=== PATIENT | female | born 1945 | race Caucasian/White ===

== ENCOUNTER 2017-06-01 09:15 | Outpatient (RCR) | payer MEDICARE, SELFPAY ==
[2017-05-08 00:59] VITALS: BP 150/77; PULSE 75; RESP 16; TEMP 36.6
[2017-05-18 09:19] VITALS: BP 136/56; PULSE 81; RESP 16; TEMP 36.6
--- NOTE | 2017-05-18 13:23 | PCM.WC.PN ---
(1) Rheumatoid arthritis Status: Chronic Current Visit: Yes Code(s): M06.9 - Rheumatoid arthritis, unspecified (2) Traumatic open wound of left lower leg with delayed healing Status: Chronic Current Visit: Yes Code(s): S81.802D - Unspecified open wound, left lower leg, subsequent encounter (3) Ulcer of leg, chronic, left Status: Chronic Current Visit: Yes Qualifiers: Code(s): L97.929 - Non-pressure chronic ulcer of unspecified part of left lower leg with unspecified severity Type of Wound Date of Service: 05/18/17 Chief Complaint: Traumatic open wound of left leg History of Wound: This is a 71-year-old female who suffered a traumatic injury to the left lateral calf on October 06, 2016. This occurred while she was ascending the steps. She had been under the care of Dr. Ja Bernal at this facility in management of this traumatic wound. The use of allograft or PuraPly has been considered, but denied by the patient's insurance. Patient has had recent culture, positive for Staphylococcus aureus, and has completed a course of Bactrim DS. Current management includes the use of Yen topically, changed every several days. She has previously demonstrated an apparent allergy to collagen hydrogel. The patient has had vascular studies, without evidence of significant superficial vein incompetence in the left lower extremity. Her noninvasive lower extremity arterial study reveals normal anklebrachial indices bilaterally. Laboratory results have been reviewed from January 04, 2017, and are generally unremarkable. Nutritional labs appear to be normal. White blood count and hemogram are also normal. The patient is noted to be on prednisone and methotrexate. These are acknowledged to be possible inhibitors to wound healing. 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 Discontinuation of these medications did not sit well with the patient in terms of her rheumatoid arthritis. She has resumed these medications. There has been slight improvement in the size and status of the left lower extremity traumatic wound within the last several weeks. Progress of Wound: Stable - Physical Exam Vital Signs Temp Pulse Resp BP 97.9 F 81 16 136/56 H 05/18/17 09:19 05/18/17 09:19 05/18/17 09:19 05/18/17 09:19 General: Alert, Oriented x3, Cooperative, No apparent distress HEENT: Atraumatic, Normocephalic Oral: Moist Mucosa Neck: Supple Lungs: Normal air movement Cardiovascular: Regular rate Extremities: No cyanosis, No edema Skin: Ulcer/ Wound Wound Measurements and Assessment - Nurse 1 - General Ulcer Measurement Start: 05/18/17 09:18 Freq: Status: Active Protocol: Activity Type Activity Date Activity User E-Sign Co-Sign Detail Recorded Client Recorded Date Recorded By Document 05/18/17 09:19 DL [id number] 05/18/17 09:25 DL 05/18/17 09:19 Wound Center Nurse 1 [Ulcer Assessment Protocol: WC.WD.LOC] 1. L lower leg -Current Size (cm) - Length 0.6 -Current Size (cm) - Width 0.6 -Current Size (cm) - Depth 0.1 -Total Square Cm 0.36 -Photo Taken No -Exudate Amt Small (1-33%) -Exudate Type Serosanguineous -Wound Margin Distinct, Outline Attached -Granulation Amt Small (1-33%) -Granulation Quality [place] -Necrosis Amt Small (1-33%) -Necrotic Tissue Type Adherent Slough -Structure Exposed N/A -Texture (Анна-wound Skin Appearance) Scarring -Moisture (Анна-wound Skin Appearance Dry/Scaly ) -Color (Анна-wound Skin Appearance) No Abnormality -Temperature (Анна-wound Skin No Abnormality Appearance) (Pt Warm) -Ulcer Cleansing Rinsed/ Irrigated with Saline -Foul Odor after Cleansing No -Anesthetic Used 4% Lidocaine Solution SHAHANA Stevens Nurse 2 - General Ulcer CM Notes Start: 05/18/17 09:18 Freq: Status: Active Protocol: Activity Type Activity Date Activity User E-Sign Co-Sign Detail Recorded Client Recorded Date Recorded By Document 05/18/17 09:45 DV [id number] 05/18/17 09:52 DV 05/18/17 09:45 Wound Center Nurse 2 [Procedure/Treatment] -Time 09:46 -Correct Patient Yes -Correct Side, Site, Position Yes -Correct Procedure Yes -Procedure Performed Yes -Type of Procedure Debridement -Clinical Debridement Subcutaneous -Post Debridement Size (cm) - Length 0.8 -Post Debridement Size (cm) - Width 0.6 -Post Debridement Size (cm) - Depth 0.1 -Total Square Cm 0.48 -Wound/Ulcer Outcome Failed Graft -Ulcer Cleansing Rinsed/ Irrigated with Saline -Foul Odor after Cleansing No -Bioengineered Tissue No -Cetacaine [place] No -Bleeding Controlled with Pressure -Treatment Response Procedure Tolerated Well [See Physician Procedure note for Specifics] Pain Scale: 0-10 Numeric [Pain] -Is Patient Pain Free? Yes Musculoskeletal: No Muscle Wasting Neurological: Cranial nerves II-XII grossly intact Debridement Note Post-Debridement Measurements/Treatment WC - Nurse 2 - General Ulcer CM Notes Start: 05/18/17 09:18 Freq: Status: Active Protocol: Activity Type Activity Date Activity User E-Sign Co-Sign Detail Recorded Client Recorded Date Recorded By Document 05/18/17 09:45 DV [id number] 05/18/17 09:52 DV 05/18/17 09:45 Wound Center Nurse 2 1. L lower leg -Time 09:46 -Correct Patient Yes -Correct Side, Site, Position Yes -Correct Procedure Yes -Procedure Performed Yes -Type of Procedure Debridement -Clinical Debridement Subcutaneous -Post Debridement Size (cm) - Length 0.8 -Post Debridement Size (cm) - Width 0.6 -Post Debridement Size (cm) - Depth 0.1 -Total Square Cm 0.48 -Wound/Ulcer Outcome Failed Graft -Ulcer Cleansing Rinsed/ Irrigated with Saline -Foul Odor after Cleansing No -Bioengineered Tissue No -Cetacaine [place] No -Bleeding Controlled with Pressure -Treatment Response Procedure Tolerated Well Pain Scale: 0-10 Numeric Is Patient Pain Free? Yes Wound debrided: Left Leg Type of Debridement: Excisional debridement Anesthesia Used: 4% Lidocaine Solution Depth: Down to and including healthy tissue, in the subcutaneous layer Percentage of wound debrided: 100 Instrument Used: 5mm curette Tissue Removed: Slough, Subcutaneous tissue Amount of bleeding with debridement: Mild Bleeding Controlled with: Pressure Patient tolerated procedure well Assessment/Plan Active Problems Rheumatoid arthritis (Chronic) Ulcer of leg, chronic, left (Chronic) Traumatic open wound of left lower leg with delayed healing (Chronic) Assessment: Traumatic wound of the left lateral calf, sustained on October 06, 2016. Patient had initially made slow progress but now seems to have plateued. She suffers from rheumatoid arthritis, for which she is on methotrexate and prednisone, which may be inhibitors of wound healing, and may have contributed to delays in healing of the patient's traumatic wound. Arterial flow to ankle level appears to be normal bilaterally, suggesting that arterial perfusion is adequate for wound healing in the left lower extremity. The patient appears to be a candidate for allograft placement, but has been denied by her insurance company. Plan: Wound size with modest reduction. Attempts are still being made for skin substitutes. Continue Promogran daily. Continue protein rich diet. Follow-up in 2 weeks. This note was generated with [employer] dictation software. It may contain incorrect words, spelling, and punctuation that were not noted in checking the note before signing.
--- NOTE | 2017-05-18 13:28 | PN.PCM_ITS ---
(1) Rheumatoid arthritis Status: Chronic Current Visit: Yes Code(s): M06.9 - Rheumatoid arthritis, unspecified (2) Traumatic open wound of left lower leg with delayed healing Status: Chronic Current Visit: Yes Code(s): S81.802D - Unspecified open wound, left lower leg, subsequent encounter (3) Ulcer of leg, chronic, left Status: Chronic Current Visit: Yes Qualifiers: Code(s): L97.929 - Non-pressure chronic ulcer of unspecified part of left lower leg with unspecified severity Type of Wound Date of Service: 05/18/17 Chief Complaint: Traumatic open wound of left leg History of Wound: This is a 71-year-old female who suffered a traumatic injury to the left lateral calf on October 06, 2016. This occurred while she was ascending the steps. She had been under the care of Dr. Ja Bernal at this facility in management of this traumatic wound. The use of allograft or PuraPly has been considered, but denied by the patient's insurance. Patient has had recent culture, positive for Staphylococcus aureus, and has completed a course of Bactrim DS. Current management includes the use of Yen topically, changed every several days. She has previously demonstrated an apparent allergy to collagen hydrogel. The patient has had vascular studies, without evidence of significant superficial vein incompetence in the left lower extremity. Her noninvasive lower extremity arterial study reveals normal ankle? brachial indices bilaterally. Laboratory results have been reviewed from January 04, 2017, and are generally unremarkable. Nutritional labs appear to be normal. White blood count and hemogram are also normal. The patient is noted to be on prednisone and methotrexate. These are acknowledged to be possible inhibitors to wound healing. The patient is aware, and has previously made efforts to wean herself from these medications in collaboration with her safety professional. Discontinuation of these medications did not sit well with the patient in terms of her rheumatoid arthritis. She has resumed these medications. There has been slight improvement in the size and status of the left lower extremity traumatic wound within the last several weeks. Progress of Wound: Stable - Physical Exam Vital Signs Temp Pulse Resp BP 97.9 F 81 16 136/56 H 05/18/17 09:19 05/18/17 09:19 05/18/17 09:19 05/18/17 09:19 General: Alert, Oriented x3, Cooperative, No apparent distress HEENT: Atraumatic, Normocephalic Oral: Moist Mucosa Neck: Supple Lungs: Normal air movement Cardiovascular: Regular rate Extremities: No cyanosis, No edema Skin: Ulcer/ Wound Wound Measurements and Assessment - Nurse 1 - General Ulcer Measurement Start: 05/18/17 09:18 Freq: Status: Active Protocol: Activity Type Activity Date Activity User E-Sign Co-Sign Detail Recorded Client Recorded Date Recorded By Document 05/18/17 09:19 DL [id number] 05/18/17 09:25 DL 05/18/17 09:19 Wound Center Nurse 1 [Ulcer Assessment Protocol: WC.WD.LOC] 1. L lower leg -Current Size (cm) - Length 0.6 -Current Size (cm) - Width 0.6 -Current Size (cm) - Depth 0.1 -Total Square Cm 0.36 -Photo Taken No -Exudate Amt Small (1-33%) -Exudate Type Serosanguineous -Wound Margin Distinct, Outline Attached -Granulation Amt Small (1-33%) -Granulation Quality [place] -Necrosis Amt Small (1-33%) -Necrotic Tissue Type Adherent Slough -Structure Exposed N/A -Texture (Анна-wound Skin Appearance) Scarring -Moisture (Анна-wound Skin Appearance Dry/Scaly ) -Color (Анна-wound Skin Appearance) No Abnormality -Temperature (Анна-wound Skin No Abnormality Appearance) (Pt Warm) -Ulcer Cleansing Rinsed/ Irrigated with Saline -Foul Odor after Cleansing No -Anesthetic Used 4% Lidocaine Solution SHAHANA Stevens Nurse 2 - General Ulcer CM Notes Start: 05/18/17 09:18 Freq: Status: Active Protocol: Activity Type Activity Date Activity User E-Sign Co-Sign Detail Recorded Client Recorded Date Recorded By Document 05/18/17 09:45 DV [id number] 05/18/17 09:52 DV 05/18/17 09:45 Wound Center Nurse 2 [Procedure/Treatment] -Time 09:46 -Correct Patient Yes -Correct Side, Site, Position Yes -Correct Procedure Yes -Procedure Performed Yes -Type of Procedure Debridement -Clinical Debridement Subcutaneous -Post Debridement Size (cm) - Length 0.8 -Post Debridement Size (cm) - Width 0.6 -Post Debridement Size (cm) - Depth 0.1 -Total Square Cm 0.48 -Wound/Ulcer Outcome Failed Graft -Ulcer Cleansing Rinsed/ Irrigated with Saline -Foul Odor after Cleansing No -Bioengineered Tissue No -Cetacaine [place] No -Bleeding Controlled with Pressure -Treatment Response Procedure Tolerated Well [See Physician Procedure note for Specifics] Pain Scale: 0-10 Numeric [Pain] -Is Patient Pain Free? Yes Musculoskeletal: No Muscle Wasting Neurological: Cranial nerves II-XII grossly intact Debridement Note Post-Debridement Measurements/Treatment WC - Nurse 2 - General Ulcer CM Notes Start: 05/18/17 09:18 Freq: Status: Active Protocol: Activity Type Activity Date Activity User E-Sign Co-Sign Detail Recorded Client Recorded Date Recorded By Document 05/18/17 09:45 DV [id number] 05/18/17 09:52 DV 05/18/17 09:45 Wound Center Nurse 2 1. L lower leg -Time 09:46 -Correct Patient Yes -Correct Side, Site, Position Yes -Correct Procedure Yes -Procedure Performed Yes -Type of Procedure Debridement -Clinical Debridement Subcutaneous -Post Debridement Size (cm) - Length 0.8 -Post Debridement Size (cm) - Width 0.6 -Post Debridement Size (cm) - Depth 0.1 -Total Square Cm 0.48 -Wound/Ulcer Outcome Failed Graft -Ulcer Cleansing Rinsed/ Irrigated with Saline -Foul Odor after Cleansing No -Bioengineered Tissue No -Cetacaine [place] No -Bleeding Controlled with Pressure -Treatment Response Procedure Tolerated Well Pain Scale: 0-10 Numeric Is Patient Pain Free? Yes Wound debrided: Left Leg Type of Debridement: Excisional debridement Anesthesia Used: 4% Lidocaine Solution Depth: Down to and including healthy tissue, in the subcutaneous layer Percentage of wound debrided: 100 Instrument Used: 5mm curette Tissue Removed: Slough, Subcutaneous tissue Amount of bleeding with debridement: Mild Bleeding Controlled with: Pressure Patient tolerated procedure well Assessment/Plan Active Problems Rheumatoid arthritis (Chronic) Ulcer of leg, chronic, left (Chronic) Traumatic open wound of left lower leg with delayed healing (Chronic) Assessment: Traumatic wound of the left lateral calf, sustained on October 06, 2016. Patient had initially made slow progress but now seems to have plateued. She suffers from rheumatoid arthritis, for which she is on methotrexate and prednisone, which may be inhibitors of wound healing, and may have contributed to delays in healing of the patient's traumatic wound. Arterial flow to ankle level appears to be normal bilaterally, suggesting that arterial perfusion is adequate for wound healing in the left lower extremity. The patient appears to be a candidate for allograft placement, but has been denied by her insurance company. Plan: Wound size with modest reduction. Attempts are still being made for skin substitutes. Continue Promogran daily. Continue protein rich diet. Follow-up in 2 weeks. This note was generated with [employer] dictation software. It may contain incorrect words, spelling, and punctuation that were not noted in checking the note before signing.
[2017-06-01 09:35] VITALS: BP 154/95; PULSE 90; RESP 18; TEMP 37.3
--- NOTE | 2017-06-01 10:41 | PCM.WC.PN ---
(1) Rheumatoid arthritis Status: Chronic Code(s): M06.9 - Rheumatoid arthritis, unspecified (2) Traumatic open wound of left lower leg with delayed healing Status: Chronic Code(s): S81.802D - Unspecified open wound, left lower leg, subsequent encounter (3) Ulcer of leg, chronic, left Status: Chronic Qualifiers: Code(s): L97.929 - Non-pressure chronic ulcer of unspecified part of left lower leg with unspecified severity Type of Wound Date of Service: 06/01/17 Chief Complaint: Traumatic open wound of left leg History of Wound: This is a 71-year-old female who suffered a traumatic injury to the left lateral calf on October 06, 2016. This occurred while she was ascending the steps. She had been under the care of Dr. Ja Bernal at this facility in management of this traumatic wound. The use of allograft or PuraPly has been considered, but denied by the patient's insurance. Patient has had recent culture, positive for Staphylococcus aureus, and has completed a course of Bactrim DS. Current management includes the use of Yen topically, changed every several days. She has previously demonstrated an apparent allergy to collagen hydrogel. The patient has had vascular studies, without evidence of significant superficial vein incompetence in the left lower extremity. Her noninvasive lower extremity arterial study reveals normal anklebrachial indices bilaterally. Laboratory results have been reviewed from January 04, 2017, and are generally unremarkable. Nutritional labs appear to be normal. White blood count and hemogram are also normal. The patient is noted to be on prednisone and methotrexate. These are acknowledged to be possible inhibitors to wound healing. 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 Discontinuation of these medications did not sit well with the patient in terms of her rheumatoid arthritis. She has resumed these medications. There has been slight improvement in the size and status of the left lower extremity traumatic wound within the last several weeks. Progress of Wound: Stable - Physical Exam Vital Signs Temp Pulse Resp BP 99.1 F 90 18 154/95 H 06/01/17 09:35 06/01/17 09:35 06/01/17 09:35 06/01/17 09:35 General: Alert, Oriented x3, Cooperative, No apparent distress HEENT: Atraumatic, Normocephalic Oral: Moist Mucosa Neck: Supple Lungs: Normal air movement Cardiovascular: Regular rate Extremities: No cyanosis, No edema Wound Measurements and Assessment WC - Nurse 1 - General Ulcer Measurement Start: 05/18/17 09:18 Freq: Status: Active Protocol: Activity Type Activity Date Activity User E-Sign Co-Sign Detail Recorded Client Recorded Date Recorded By Document 06/01/17 09:35 RB [id number] 06/01/17 09:42 RB 06/01/17 09:35 Wound Center Nurse 1 [Ulcer Assessment Protocol: WC.WD.LOC] 1. L lower leg -Combined with other wound No -Current Size (cm) - Length 0.5 -Current Size (cm) - Width 0.3 -Current Size (cm) - Depth 0.1 -Total Square Cm 0.15 -Photo Taken No -Tunneling No -Undermining/Tunneling Yes -Undermining/Tunneling Starts (O' 10 clock) -Undermining/Tunneling Ends (O'clock) 1 -Maximum Distance (cm) 0.2 -Circular Undermining No -Classification - Thickness Full Thickness without Exposed Support Structure -Exudate Amt Small (1-33%) -Exudate Type Serosanguineous -Wound Margin Distinct, Outline Attached -Granulation Amt Medium (34-66%) -Granulation Quality [place] -Slough/Fibrin Yes -Necrosis Amt Medium (34-66%) -Necrotic Tissue Type Adherent Slough -Structure Exposed N/A -Texture (Анна-wound Skin Appearance) Assessed -Moisture (Анна-wound Skin Appearance Assessed ) -Color (Анна-wound Skin Appearance) Assessed -Temperature (Анна-wound Skin No Abnormality Appearance) (Pt Warm) -Tenderness on Palpation (Анна-wound No Skin Appearance) -Ulcer Cleansing Rinsed/ Irrigated with Saline -Foul Odor after Cleansing No -Anesthetic Used 5% Lidocaine Gel WC - Nurse 2 - General Ulcer CM Notes Start: 05/18/17 09:18 Freq: Status: Active Protocol: Activity Type Activity Date Activity User E-Sign Co-Sign Detail Recorded Client Recorded Date Recorded By Document 06/01/17 10:08 DV [id number] 06/01/17 10:13 DV 06/01/17 10:08 Wound Center Nurse 2 [Procedure/Treatment] -Time 10:09 -Correct Patient Yes -Correct Side, Site, Position Yes -Correct Procedure Yes -Procedure Performed Yes -Type of Procedure Debridement -Clinical Debridement Subcutaneous -Post Debridement Size (cm) - Length 0.6 -Post Debridement Size (cm) - Width 0.5 -Post Debridement Size (cm) - Depth 0.2 -Total Square Cm 0.30 -Wound/Ulcer Outcome Not Healed -Ulcer Cleansing Rinsed/ Irrigated with Saline -Foul Odor after Cleansing No -Bioengineered Tissue No -Cetacaine [place] No -Bleeding Controlled with Pressure -Treatment Response Procedure Tolerated Well [See Physician Procedure note for Specifics] Pain Scale: 0-10 Numeric [Pain] -Is Patient Pain Free? Yes Neurological: Cranial nerves II-XII grossly intact Debridement Note Post-Debridement Measurements/Treatment WC - Nurse 2 - General Ulcer CM Notes Start: 05/18/17 09:18 Freq: Status: Active Protocol: Activity Type Activity Date Activity User E-Sign Co-Sign Detail Recorded Client Recorded Date Recorded By Document 05/18/17 09:45 DV [id number] 05/18/17 09:52 DV Document 06/01/17 10:08 DV [id number] 06/01/17 10:13 DV 05/18/17 06/01/17 09:45 10:08 Wound Center Nurse 2 1. L lower leg -Time 09:46 10:09 -Correct Patient Yes Yes -Correct Side, Site, Position Yes Yes -Correct Procedure Yes Yes -Procedure Performed Yes Yes -Type of Procedure Debridement Debridement -Clinical Debridement Subcutaneous Subcutaneous -Post Debridement Size (cm) - Length 0.8 0.6 -Post Debridement Size (cm) - Width 0.6 0.5 -Post Debridement Size (cm) - Depth 0.1 0.2 -Total Square Cm 0.48 0.30 -Wound/Ulcer Outcome Failed Graft Not Healed -Ulcer Cleansing Rinsed/ Rinsed/ Irrigated with Irrigated with Saline Saline -Foul Odor after Cleansing No No -Bioengineered Tissue No No -Cetacaine [place] No No -Bleeding Controlled with Pressure Pressure -Treatment Response Procedure Procedure Tolerated Well Tolerated Well Pain Scale: 0-10 Numeric Is Patient Pain Free? Yes Yes Wound debrided: Left Leg Wound. Type of Debridement: Excisional debridement Anesthesia Used: 5% Lidocaine Gel Depth: Down to and including healthy tissue, in the subcutaneous layer Percentage of wound debrided: 100 Instrument Used: 5mm curette Tissue Removed: Slough, Devitalized Tissue Severity: Fat Layer Exposed Amount of bleeding with debridement: Mild Bleeding Controlled with: Pressure Patient tolerated procedure well Assessment/Plan Assessment: Traumatic wound of the left lateral calf, sustained on October 06, 2016. Patient had initially made slow progress but now seems to have plateued. She suffers from rheumatoid arthritis, for which she is on methotrexate and prednisone, which may be inhibitors of wound healing, and may have contributed to delays in healing of the patient's traumatic wound. Arterial flow to ankle level appears to be normal bilaterally, suggesting that arterial perfusion is adequate for wound healing in the left lower extremity. The patient appears to be a candidate for allograft placement, but has been denied by her insurance company. Plan: Wound size with modest reduction. Recurrent attempts at Skin substitutes denied. Will consider the amniofill option.... She is scheduled to have surgery next week at [facility] ( Parathyroid ). Continue Promogran daily. Continue protein rich diet. Follow-up in 2 weeks. This note was generated with [employer] dictation software. It may contain incorrect words, spelling, and punctuation that were not noted in checking the note before signing.
--- NOTE | 2017-06-01 10:45 | PN.PCM_ITS ---
(1) Rheumatoid arthritis Status: Chronic Code(s): M06.9 - Rheumatoid arthritis, unspecified (2) Traumatic open wound of left lower leg with delayed healing Status: Chronic Code(s): S81.802D - Unspecified open wound, left lower leg, subsequent encounter (3) Ulcer of leg, chronic, left Status: Chronic Qualifiers: Code(s): L97.929 - Non-pressure chronic ulcer of unspecified part of left lower leg with unspecified severity Type of Wound Date of Service: 06/01/17 Chief Complaint: Traumatic open wound of left leg History of Wound: This is a 71-year-old female who suffered a traumatic injury to the left lateral calf on October 06, 2016. This occurred while she was ascending the steps. She had been under the care of Dr. Ja Bernal at this facility in management of this traumatic wound. The use of allograft or PuraPly has been considered, but denied by the patient's insurance. Patient has had recent culture, positive for Staphylococcus aureus, and has completed a course of Bactrim DS. Current management includes the use of Yen topically, changed every several days. She has previously demonstrated an apparent allergy to collagen hydrogel. The patient has had vascular studies, without evidence of significant superficial vein incompetence in the left lower extremity. Her noninvasive lower extremity arterial study reveals normal ankle? brachial indices bilaterally. Laboratory results have been reviewed from January 04, 2017, and are generally unremarkable. Nutritional labs appear to be normal. White blood count and hemogram are also normal. The patient is noted to be on prednisone and methotrexate. These are acknowledged to be possible inhibitors to wound healing. The patient is aware, and has previously made efforts to wean herself from these medications in collaboration with her movie editor. Discontinuation of these medications did not sit well with the patient in terms of her rheumatoid arthritis. She has resumed these medications. There has been slight improvement in the size and status of the left lower extremity traumatic wound within the last several weeks. Progress of Wound: Stable - Physical Exam Vital Signs Temp Pulse Resp BP 99.1 F 90 18 154/95 H 06/01/17 09:35 06/01/17 09:35 06/01/17 09:35 06/01/17 09:35 General: Alert, Oriented x3, Cooperative, No apparent distress HEENT: Atraumatic, Normocephalic Oral: Moist Mucosa Neck: Supple Lungs: Normal air movement Cardiovascular: Regular rate Extremities: No cyanosis, No edema Wound Measurements and Assessment WC - Nurse 1 - General Ulcer Measurement Start: 05/18/17 09:18 Freq: Status: Active Protocol: Activity Type Activity Date Activity User E-Sign Co-Sign Detail Recorded Client Recorded Date Recorded By Document 06/01/17 09:35 RB [id number] 06/01/17 09:42 RB 06/01/17 09:35 Wound Center Nurse 1 [Ulcer Assessment Protocol: WC.WD.LOC] 1. L lower leg -Combined with other wound No -Current Size (cm) - Length 0.5 -Current Size (cm) - Width 0.3 -Current Size (cm) - Depth 0.1 -Total Square Cm 0.15 -Photo Taken No -Tunneling No -Undermining/Tunneling Yes -Undermining/Tunneling Starts (O' 10 clock) -Undermining/Tunneling Ends (O'clock) 1 -Maximum Distance (cm) 0.2 -Circular Undermining No -Classification - Thickness Full Thickness without Exposed Support Structure -Exudate Amt Small (1-33%) -Exudate Type Serosanguineous -Wound Margin Distinct, Outline Attached -Granulation Amt Medium (34-66%) -Granulation Quality [place] -Slough/Fibrin Yes -Necrosis Amt Medium (34-66%) -Necrotic Tissue Type Adherent Slough -Structure Exposed N/A -Texture (Анна-wound Skin Appearance) Assessed -Moisture (Анна-wound Skin Appearance Assessed ) -Color (Анна-wound Skin Appearance) Assessed -Temperature (Анна-wound Skin No Abnormality Appearance) (Pt Warm) -Tenderness on Palpation (Анна-wound No Skin Appearance) -Ulcer Cleansing Rinsed/ Irrigated with Saline -Foul Odor after Cleansing No -Anesthetic Used 5% Lidocaine Gel WC - Nurse 2 - General Ulcer CM Notes Start: 05/18/17 09:18 Freq: Status: Active Protocol: Activity Type Activity Date Activity User E-Sign Co-Sign Detail Recorded Client Recorded Date Recorded By Document 06/01/17 10:08 DV [id number] 06/01/17 10:13 DV 06/01/17 10:08 Wound Center Nurse 2 [Procedure/Treatment] -Time 10:09 -Correct Patient Yes -Correct Side, Site, Position Yes -Correct Procedure Yes -Procedure Performed Yes -Type of Procedure Debridement -Clinical Debridement Subcutaneous -Post Debridement Size (cm) - Length 0.6 -Post Debridement Size (cm) - Width 0.5 -Post Debridement Size (cm) - Depth 0.2 -Total Square Cm 0.30 -Wound/Ulcer Outcome Not Healed -Ulcer Cleansing Rinsed/ Irrigated with Saline -Foul Odor after Cleansing No -Bioengineered Tissue No -Cetacaine Tell No -Bleeding Controlled with Pressure -Treatment Response Procedure Tolerated Well [See Physician Procedure note for Specifics] Pain Scale: 0-10 Numeric [Pain] -Is Patient Pain Free? Yes Neurological: Cranial nerves II-XII grossly intact Debridement Note Post-Debridement Measurements/Treatment WC - Nurse 2 - General Ulcer CM Notes Start: 05/18/17 09:18 Freq: Status: Active Protocol: Activity Type Activity Date Activity User E-Sign Co-Sign Detail Recorded Client Recorded Date Recorded By Document 05/18/17 09:45 DV [id number] 05/18/17 09:52 DV Document 06/01/17 10:08 DV [id number] 06/01/17 10:13 DV 05/18/17 06/01/17 09:45 10:08 Wound Center Nurse 2 1. L lower leg -Time 09:46 10:09 -Correct Patient Yes Yes -Correct Side, Site, Position Yes Yes -Correct Procedure Yes Yes -Procedure Performed Yes Yes -Type of Procedure Debridement Debridement -Clinical Debridement Subcutaneous Subcutaneous -Post Debridement Size (cm) - Length 0.8 0.6 -Post Debridement Size (cm) - Width 0.6 0.5 -Post Debridement Size (cm) - Depth 0.1 0.2 -Total Square Cm 0.48 0.30 -Wound/Ulcer Outcome Failed Graft Not Healed -Ulcer Cleansing Rinsed/ Rinsed/ Irrigated with Irrigated with Saline Saline -Foul Odor after Cleansing No No -Bioengineered Tissue No No -Cetacaine Tell No No -Bleeding Controlled with Pressure Pressure -Treatment Response Procedure Procedure Tolerated Well Tolerated Well Pain Scale: 0-10 Numeric Is Patient Pain Free? Yes Yes Wound debrided: Left Leg Wound. Type of Debridement: Excisional debridement Anesthesia Used: 5% Lidocaine Gel Depth: Down to and including healthy tissue, in the subcutaneous layer Percentage of wound debrided: 100 Instrument Used: 5mm curette Tissue Removed: Slough, Devitalized Tissue Severity: Fat Layer Exposed Amount of bleeding with debridement: Mild Bleeding Controlled with: Pressure Patient tolerated procedure well Assessment/Plan Assessment: Traumatic wound of the left lateral calf, sustained on October 06, 2016. Patient had initially made slow progress but now seems to have plateued. She suffers from rheumatoid arthritis, for which she is on methotrexate and prednisone, which may be inhibitors of wound healing, and may have contributed to delays in healing of the patient's traumatic wound. Arterial flow to ankle level appears to be normal bilaterally, suggesting that arterial perfusion is adequate for wound healing in the left lower extremity. The patient appears to be a candidate for allograft placement, but has been denied by her insurance company. Plan: Wound size with modest reduction. Recurrent attempts at Skin substitutes denied. Will consider the amniofill option.... She is scheduled to have surgery next week at [facility] ( Parathyroid ). Continue Promogran daily. Continue protein rich diet. Follow-up in 2 weeks. This note was generated with [employer] dictation software. It may contain incorrect words, spelling, and punctuation that were not noted in checking the note before signing.
== END 2017-06-07 23:59 ==
LOC: WC 09:15
PROVIDERS: Family Provider Family Medicine; PCP Family Medicine; Visit Provider Internal Medicine
DX: S81.802A Unspecified open wound, left lower leg, initial encounter (principal); M06.9 Rheumatoid arthritis, unspecified; L97.822 Non-pressure chronic ulcer of other part of left lower leg with fat layer exposed
CPT/HCPCS: 11042

== ENCOUNTER 2017-06-29 09:30 | Outpatient (RCR) | payer MEDICARE, SELFPAY ==
[2017-06-01 09:35] VITALS: BP 154/95
[2017-06-08 00:41] VITALS: PULSE 90; RESP 18; TEMP 37.3
[2017-06-15 09:48] VITALS: BP 123/78; PULSE 86; RESP 16; TEMP 36.9
--- NOTE | 2017-06-15 14:17 | PCM.WC.PN ---
(1) Rheumatoid arthritis Status: Chronic Current Visit: Yes Code(s): M06.9 - Rheumatoid arthritis, unspecified (2) Traumatic open wound of left lower leg with delayed healing Status: Chronic Current Visit: Yes Code(s): S81.802D - Unspecified open wound, left lower leg, subsequent encounter (3) Ulcer of leg, chronic, left Status: Chronic Current Visit: Yes Qualifiers: Code(s): L97.929 - Non-pressure chronic ulcer of unspecified part of left lower leg with unspecified severity Type of Wound Date of Service: 06/15/17 Chief Complaint: Traumatic open wound of left leg History of Wound: This is a 71-year-old female who suffered a traumatic injury to the left lateral calf on October 06, 2016. This occurred while she was ascending the steps. She had been under the care of Dr. Ja Bernal at this facility in management of this traumatic wound. The use of allograft or PuraPly has been considered, but denied by the patient's insurance. Patient has had recent culture, positive for Staphylococcus aureus, and has completed a course of Bactrim DS. Current management includes the use of Yen topically, changed every several days. She has previously demonstrated an apparent allergy to collagen hydrogel. The patient has had vascular studies, without evidence of significant superficial vein incompetence in the left lower extremity. Her noninvasive lower extremity arterial study reveals normal anklebrachial indices bilaterally. Laboratory results have been reviewed from January 04, 2017, and are generally unremarkable. Nutritional labs appear to be normal. White blood count and hemogram are also normal. The patient is noted to be on prednisone and methotrexate. These are acknowledged to be possible inhibitors to wound healing. 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 Discontinuation of these medications did not sit well with the patient in terms of her rheumatoid arthritis. She has resumed these medications. There has been slight improvement in the size and status of the left lower extremity traumatic wound within the last several weeks. Progress of Wound: Improving. - Physical Exam Vital Signs Temp Pulse Resp BP 98.4 F 86 16 123/78 H 06/15/17 09:48 06/15/17 09:48 06/15/17 09:48 06/15/17 09:48 General: Alert, Oriented x3, Cooperative, No apparent distress HEENT: Atraumatic, Normocephalic Oral: Moist Mucosa Neck: Supple Lungs: Normal air movement Cardiovascular: Regular rate Extremities: No cyanosis Wound Measurements and Assessment - Nurse 1 - General Ulcer Measurement Start: 06/15/17 09:48 Freq: Status: Active Protocol: Activity Type Activity Date Activity User E-Sign Co-Sign Detail Recorded Client Recorded Date Recorded By Document 06/15/17 09:48 [facility] [id number] 06/15/17 09:56 [facility] 06/15/17 09:48 Wound Center Nurse 1 [Ulcer Assessment Protocol: WC.WD.LOC] 1. L lower leg -Combined with other wound No -Current Size (cm) - Length 0.9 -Current Size (cm) - Width 0.5 -Current Size (cm) - Depth 0.1 -Total Square Cm 0.45 -Photo Taken No -Epithelialization None Present -Tunneling No -Undermining/Tunneling No -Exudate Amt None Present (0 %) -Wound Margin Distinct, Outline Attached -Granulation Amt None Present (0 %) -Slough/Fibrin Yes -Necrosis Amt Large (67-100%) -Necrotic Tissue Type Eschar -Structure Exposed N/A -Texture (Анна-wound Skin Appearance) Scarring -Moisture (Анна-wound Skin Appearance Dry/Scaly ) -Color (Анна-wound Skin Appearance) Assessed -Temperature (Анна-wound Skin No Abnormality Appearance) (Pt Warm) -Tenderness on Palpation (Анна-wound No Skin Appearance) -Ulcer Cleansing Rinsed/ Irrigated with Saline -Foul Odor after Cleansing No -Anesthetic Used 5% Lidocaine Gel - Nurse 2 - General Ulcer CM Notes Start: 06/15/17 09:48 Freq: Status: Active Protocol: Activity Type Activity Date Activity User E-Sign Co-Sign Detail Recorded Client Recorded Date Recorded By Document 06/15/17 11:32 DV [id number] 06/15/17 11:35 DV 06/15/17 11:32 Wound Center Nurse 2 [Procedure/Treatment] -Time 11:32 -Correct Patient Yes -Correct Side, Site, Position Yes -Correct Procedure Yes -Procedure Performed Yes -Type of Procedure Debridement -Clinical Debridement Subcutaneous -Post Debridement Size (cm) - Length 0.5 -Post Debridement Size (cm) - Width 0.3 -Post Debridement Size (cm) - Depth 0.2 -Total Square Cm 0.15 -Wound/Ulcer Outcome Not Healed -Ulcer Cleansing Rinsed/ Irrigated with Saline -Foul Odor after Cleansing No -Bioengineered Tissue No -Bleeding Controlled with Pressure -Treatment Response Procedure Tolerated Well [See Physician Procedure note for Specifics] Pain Scale: 0-10 Numeric [Pain] -Is Patient Pain Free? Yes Neurological: Cranial nerves II-XII grossly intact Psych/Mental Status: Normal Affect Debridement Note Post-Debridement Measurements/Treatment WC - Nurse 2 - General Ulcer CM Notes Start: 06/15/17 09:48 Freq: Status: Active Protocol: Activity Type Activity Date Activity User E-Sign Co-Sign Detail Recorded Client Recorded Date Recorded By Document 06/15/17 11:32 DV [id number] 06/15/17 11:35 DV 06/15/17 11:32 Wound Center Nurse 2 1. L lower leg -Time 11:32 -Correct Patient Yes -Correct Side, Site, Position Yes -Correct Procedure Yes -Procedure Performed Yes -Type of Procedure Debridement -Clinical Debridement Subcutaneous -Post Debridement Size (cm) - Length 0.5 -Post Debridement Size (cm) - Width 0.3 -Post Debridement Size (cm) - Depth 0.2 -Total Square Cm 0.15 -Wound/Ulcer Outcome Not Healed -Ulcer Cleansing Rinsed/ Irrigated with Saline -Foul Odor after Cleansing No -Bioengineered Tissue No -Bleeding Controlled with Pressure -Treatment Response Procedure Tolerated Well Pain Scale: 0-10 Numeric Is Patient Pain Free? Yes Wound debrided: Left Leg Wound Grade/Stage: Stage II Type of Debridement: Excisional debridement Anesthesia Used: 5% Lidocaine Gel Depth: Down to and including healthy tissue, in the subcutaneous layer Percentage of wound debrided: 100 Instrument Used: 3mm curette Tissue Removed: Slogh and Devitalized tissue. Severity: Fat Layer Exposed Amount of bleeding with debridement: Mild Bleeding Controlled with: Pressure Patient tolerated procedure well Assessment/Plan Active Problems Traumatic open wound of left lower leg with delayed healing (Chronic) Ulcer of leg, chronic, left (Chronic) Rheumatoid arthritis (Chronic) Assessment: Traumatic wound of the left lateral calf, sustained on October 06, 2016. Patient had initially made slow progress but now seems to have plateued. She suffers from rheumatoid arthritis, for which she is on methotrexate and prednisone, which may be inhibitors of wound healing, and may have contributed to delays in healing of the patient's traumatic wound. Arterial flow to ankle level appears to be normal bilaterally, suggesting that arterial perfusion is adequate for wound healing in the left lower extremity. The patient appears to be a candidate for allograft placement, but has been denied by her insurance company. Plan: Slow however, steady progress in wound healing. No new complaints at this time. Parathyroid surgery was uneventful. Continue Promogran daily after cleaning. Continue protein rich diet and supplements. Elevate lower extremity. Follow-up in 2 weeks. This note was generated with [employer] dictation software. It may contain incorrect words, spelling, and punctuation that were not noted in checking the note before signing.
--- NOTE | 2017-06-15 14:21 | PN.PCM_ITS ---
(1) Rheumatoid arthritis Status: Chronic Current Visit: Yes Code(s): M06.9 - Rheumatoid arthritis, unspecified (2) Traumatic open wound of left lower leg with delayed healing Status: Chronic Current Visit: Yes Code(s): S81.802D - Unspecified open wound, left lower leg, subsequent encounter (3) Ulcer of leg, chronic, left Status: Chronic Current Visit: Yes Qualifiers: Code(s): L97.929 - Non-pressure chronic ulcer of unspecified part of left lower leg with unspecified severity Type of Wound Date of Service: 06/15/17 Chief Complaint: Traumatic open wound of left leg History of Wound: This is a 71-year-old female who suffered a traumatic injury to the left lateral calf on October 06, 2016. This occurred while she was ascending the steps. She had been under the care of Dr. Ja Bernal at this facility in management of this traumatic wound. The use of allograft or PuraPly has been considered, but denied by the patient's insurance. Patient has had recent culture, positive for Staphylococcus aureus, and has completed a course of Bactrim DS. Current management includes the use of Yen topically, changed every several days. She has previously demonstrated an apparent allergy to collagen hydrogel. The patient has had vascular studies, without evidence of significant superficial vein incompetence in the left lower extremity. Her noninvasive lower extremity arterial study reveals normal ankle? brachial indices bilaterally. Laboratory results have been reviewed from January 04, 2017, and are generally unremarkable. Nutritional labs appear to be normal. White blood count and hemogram are also normal. The patient is noted to be on prednisone and methotrexate. These are acknowledged to be possible inhibitors to wound healing. 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 Discontinuation of these medications did not sit well with the patient in terms of her rheumatoid arthritis. She has resumed these medications. There has been slight improvement in the size and status of the left lower extremity traumatic wound within the last several weeks. Progress of Wound: Improving. - Physical Exam Vital Signs Temp Pulse Resp BP 98.4 F 86 16 123/78 H 06/15/17 09:48 06/15/17 09:48 06/15/17 09:48 06/15/17 09:48 General: Alert, Oriented x3, Cooperative, No apparent distress HEENT: Atraumatic, Normocephalic Oral: Moist Mucosa Neck: Supple Lungs: Normal air movement Cardiovascular: Regular rate Extremities: No cyanosis Wound Measurements and Assessment - Nurse 1 - General Ulcer Measurement Start: 06/15/17 09:48 Freq: Status: Active Protocol: Activity Type Activity Date Activity User E-Sign Co-Sign Detail Recorded Client Recorded Date Recorded By Document 06/15/17 09:48 [facility] [id number] 06/15/17 09:56 [facility] 06/15/17 09:48 Wound Center Nurse 1 [Ulcer Assessment Protocol: SHAHANA.WD.LOC] 1. L lower leg -Combined with other wound No -Current Size (cm) - Length 0.9 -Current Size (cm) - Width 0.5 -Current Size (cm) - Depth 0.1 -Total Square Cm 0.45 -Photo Taken No -Epithelialization None Present -Tunneling No -Undermining/Tunneling No -Exudate Amt None Present (0 %) -Wound Margin Distinct, Outline Attached -Granulation Amt None Present (0 %) -Slough/Fibrin Yes -Necrosis Amt Large (67-100%) -Necrotic Tissue Type Eschar -Structure Exposed N/A -Texture (Анна-wound Skin Appearance) Scarring -Moisture (Анна-wound Skin Appearance Dry/Scaly ) -Color (Анна-wound Skin Appearance) Assessed -Temperature (Анна-wound Skin No Abnormality Appearance) (Pt Warm) -Tenderness on Palpation (Анна-wound No Skin Appearance) -Ulcer Cleansing Rinsed/ Irrigated with Saline -Foul Odor after Cleansing No -Anesthetic Used 5% Lidocaine Gel - Nurse 2 - General Ulcer CM Notes Start: 06/15/17 09:48 Freq: Status: Active Protocol: Activity Type Activity Date Activity User E-Sign Co-Sign Detail Recorded Client Recorded Date Recorded By Document 06/15/17 11:32 DV [id number] 06/15/17 11:35 DV 06/15/17 11:32 Wound Center Nurse 2 [Procedure/Treatment] -Time 11:32 -Correct Patient Yes -Correct Side, Site, Position Yes -Correct Procedure Yes -Procedure Performed Yes -Type of Procedure Debridement -Clinical Debridement Subcutaneous -Post Debridement Size (cm) - Length 0.5 -Post Debridement Size (cm) - Width 0.3 -Post Debridement Size (cm) - Depth 0.2 -Total Square Cm 0.15 -Wound/Ulcer Outcome Not Healed -Ulcer Cleansing Rinsed/ Irrigated with Saline -Foul Odor after Cleansing No -Bioengineered Tissue No -Bleeding Controlled with Pressure -Treatment Response Procedure Tolerated Well [See Physician Procedure note for Specifics] Pain Scale: 0-10 Numeric [Pain] -Is Patient Pain Free? Yes Neurological: Cranial nerves II-XII grossly intact Psych/Mental Status: Normal Affect Debridement Note Post-Debridement Measurements/Treatment WC - Nurse 2 - General Ulcer CM Notes Start: 06/15/17 09:48 Freq: Status: Active Protocol: Activity Type Activity Date Activity User E-Sign Co-Sign Detail Recorded Client Recorded Date Recorded By Document 06/15/17 11:32 DV [id number] 06/15/17 11:35 DV 06/15/17 11:32 Wound Center Nurse 2 1. L lower leg -Time 11:32 -Correct Patient Yes -Correct Side, Site, Position Yes -Correct Procedure Yes -Procedure Performed Yes -Type of Procedure Debridement -Clinical Debridement Subcutaneous -Post Debridement Size (cm) - Length 0.5 -Post Debridement Size (cm) - Width 0.3 -Post Debridement Size (cm) - Depth 0.2 -Total Square Cm 0.15 -Wound/Ulcer Outcome Not Healed -Ulcer Cleansing Rinsed/ Irrigated with Saline -Foul Odor after Cleansing No -Bioengineered Tissue No -Bleeding Controlled with Pressure -Treatment Response Procedure Tolerated Well Pain Scale: 0-10 Numeric Is Patient Pain Free? Yes Wound debrided: Left Leg Wound Grade/Stage: Stage II Type of Debridement: Excisional debridement Anesthesia Used: 5% Lidocaine Gel Depth: Down to and including healthy tissue, in the subcutaneous layer Percentage of wound debrided: 100 Instrument Used: 3mm curette Tissue Removed: Slogh and Devitalized tissue. Severity: Fat Layer Exposed Amount of bleeding with debridement: Mild Bleeding Controlled with: Pressure Patient tolerated procedure well Assessment/Plan Active Problems Traumatic open wound of left lower leg with delayed healing (Chronic) Ulcer of leg, chronic, left (Chronic) Rheumatoid arthritis (Chronic) Assessment: Traumatic wound of the left lateral calf, sustained on October 06, 2016. Patient had initially made slow progress but now seems to have plateued. She suffers from rheumatoid arthritis, for which she is on methotrexate and prednisone, which may be inhibitors of wound healing, and may have contributed to delays in healing of the patient's traumatic wound. Arterial flow to ankle level appears to be normal bilaterally, suggesting that arterial perfusion is adequate for wound healing in the left lower extremity. The patient appears to be a candidate for allograft placement, but has been denied by her insurance company. Plan: Slow however, steady progress in wound healing. No new complaints at this time. Parathyroid surgery was uneventful. Continue Promogran daily after cleaning. Continue protein rich diet and supplements. Elevate lower extremity. Follow-up in 2 weeks. This note was generated with [employer] dictation software. It may contain incorrect words, spelling, and punctuation that were not noted in checking the note before signing.
[2017-06-29 09:50] VITALS: BP 114/60; PULSE 70; RESP 18; TEMP 36.1
--- NOTE | 2017-06-29 13:57 | PCM.WC.PN ---
(1) Rheumatoid arthritis Status: Chronic Code(s): M06.9 - Rheumatoid arthritis, unspecified (2) Traumatic open wound of left lower leg with delayed healing Status: Chronic Code(s): S81.802D - Unspecified open wound, left lower leg, subsequent encounter Type of Wound Date of Service: 06/29/17 Chief Complaint: Traumatic open wound of left leg History of Wound: This is a 71-year-old female who suffered a traumatic injury to the left lateral calf on October 06, 2016. This occurred while she was ascending the steps. She had been under the care of Dr. Ja Bernal at this facility in management of this traumatic wound. The use of allograft or PuraPly has been considered, but denied by the patient's insurance. Patient has had recent culture, positive for Staphylococcus aureus, and has completed a course of Bactrim DS. Current management includes the use of Yen topically, changed every several days. She has previously demonstrated an apparent allergy to collagen hydrogel. The patient has had vascular studies, without evidence of significant superficial vein incompetence in the left lower extremity. Her noninvasive lower extremity arterial study reveals normal anklebrachial indices bilaterally. Laboratory results have been reviewed from January 04, 2017, and are generally unremarkable. Nutritional labs appear to be normal. White blood count and hemogram are also normal. The patient is noted to be on prednisone and methotrexate. These are acknowledged to be possible inhibitors to wound healing. The patient is aware, and has previously made efforts to wean herself from these medications in collaboration with her finish inspector. Discontinuation of these medications did not sit well with the patient in terms of her rheumatoid arthritis. She has resumed these medications. There has been slight improvement in the size and status of the left lower extremity traumatic wound within the last several weeks. Progress of Wound: Improving. - Physical Exam Vital Signs Temp Pulse Resp BP 97 F L 70 18 114/60 06/29/17 09:50 06/29/17 09:50 06/29/17 09:50 06/29/17 09:50 General: Alert, Oriented x3, Cooperative, No apparent distress HEENT: Atraumatic, Normocephalic Oral: Moist Mucosa Neck: Supple Lungs: Normal air movement Cardiovascular: Regular rate Extremities: No cyanosis, No edema Wound Measurements and Assessment WC - Nurse 1 - General Ulcer Measurement Start: 06/15/17 09:48 Freq: Status: Active Protocol: Activity Type Activity Date Activity User E-Sign Co-Sign Detail Recorded Client Recorded Date Recorded By Document 06/29/17 09:50 RB [id number] 06/29/17 09:58 RB 06/29/17 09:50 Wound Center Nurse 1 [Ulcer Assessment] 1. L lower leg -Combined with other wound No -Current Size (cm) - Length 0.6 -Current Size (cm) - Width 0.4 -Current Size (cm) - Depth 0.1 -Total Square Cm 0.24 -Epithelialization Small 1-33% -Tunneling No -Undermining/Tunneling No -Circular Undermining No -Classification - Thickness Full Thickness without Exposed Support Structure -Exudate Amt None Present (0 %) -Wound Margin Distinct, Outline Attached -Granulation Amt Small (1-33%) -Granulation Quality [place] -Slough/Fibrin Yes -Necrosis Amt Large (67-100%) -Necrotic Tissue Type Adherent Slough -Structure Exposed N/A -Texture (Анна-wound Skin Appearance) Assessed -Moisture (Анна-wound Skin Appearance Dry/Scaly ) -Color (Анна-wound Skin Appearance) Assessed -Temperature (Анна-wound Skin No Abnormality Appearance) (Pt Warm) -Tenderness on Palpation (Анна-wound No Skin Appearance) -Ulcer Cleansing Rinsed/ Irrigated with Saline -Foul Odor after Cleansing No -Anesthetic Used 5% Lidocaine Gel [Edema Assessment] -Lower Limb Edema Present No - Nurse 2 - General Ulcer CM Notes Start: 06/15/17 09:48 Freq: Status: Active Protocol: Activity Type Activity Date Activity User E-Sign Co-Sign Detail Recorded Client Recorded Date Recorded By Document 06/29/17 10:37 DV [id number] 06/29/17 10:40 DV 06/29/17 10:37 Wound Center Nurse 2 [Procedure/Treatment] 1. L lower leg -Time 10:38 -Correct Patient Yes -Correct Side, Site, Position Yes -Correct Procedure Yes -Procedure Performed Yes -Type of Procedure Debridement -Clinical Debridement Subcutaneous -Post Debridement Size (cm) - Length 0.1 -Post Debridement Size (cm) - Width 0.2 -Post Debridement Size (cm) - Depth 0.1 -Total Square Cm 0.02 -Wound/Ulcer Outcome Not Healed -Ulcer Cleansing Rinsed/ Irrigated with Saline -Foul Odor after Cleansing No -Bioengineered Tissue No -Bleeding Controlled with NA -Treatment Response Procedure Tolerated Well [See Physician Procedure note for Specifics] Pain Scale: 0-10 Numeric [Pain] -Is Patient Pain Free? Yes Neurological: Cranial nerves II-XII grossly intact Psych/Mental Status: Normal Affect Debridement Note Post-Debridement Measurements/Treatment WC - Nurse 2 - General Ulcer CM Notes Start: 06/15/17 09:48 Freq: Status: Active Protocol: Activity Type Activity Date Activity User E-Sign Co-Sign Detail Recorded Client Recorded Date Recorded By Document 06/15/17 11:32 DV [id number] 06/15/17 11:35 DV Document 06/29/17 10:37 DV [id number] 06/29/17 10:40 DV 06/15/17 06/29/17 11:32 10:37 Wound Center Nurse 2 1. L lower leg -Time 11:32 10:38 -Correct Patient Yes Yes -Correct Side, Site, Position Yes Yes -Correct Procedure Yes Yes -Procedure Performed Yes Yes -Type of Procedure Debridement Debridement -Clinical Debridement Subcutaneous Subcutaneous -Post Debridement Size (cm) - Length 0.5 0.1 -Post Debridement Size (cm) - Width 0.3 0.2 -Post Debridement Size (cm) - Depth 0.2 0.1 -Total Square Cm 0.15 0.02 -Wound/Ulcer Outcome Not Healed Not Healed -Ulcer Cleansing Rinsed/ Rinsed/ Irrigated with Irrigated with Saline Saline -Foul Odor after Cleansing No No -Bioengineered Tissue No No -Bleeding Controlled with Pressure NA -Treatment Response Procedure Procedure Tolerated Well Tolerated Well Pain Scale: 0-10 Numeric Is Patient Pain Free? Yes Yes Wound debrided: Left lower extremity ulcer Wound Grade/Stage: Stage II Type of Debridement: Excisional debridement Anesthesia Used: 5% Lidocaine Gel Depth: Down to and including healthy tissue Percentage of wound debrided: 100 Instrument Used: 3mm curette Tissue Removed: Devitalized tissue Severity: Limited To Skin Breakdown Amount of bleeding with debridement: Mild Bleeding Controlled with: Pressure Patient tolerated procedure well Assessment/Plan Assessment: Traumatic wound of the left lateral calf, sustained on October 06, 2016. Patient had initially made slow progress but now seems to have plateued. She suffers from rheumatoid arthritis, for which she is on methotrexate and prednisone, which may be inhibitors of wound healing, and may have contributed to delays in healing of the patient's traumatic wound. Arterial flow to ankle level appears to be normal bilaterally, suggesting that arterial perfusion is adequate for wound healing in the left lower extremity. The patient appears to be a candidate for allograft placement, but has been denied by her insurance company. Plan: Significant progress noted. Wound essentially healed. Minimal superficial area left. Continue Promogran daily after cleaning. Continue protein rich diet and supplements. Elevate lower extremity. Follow-up in 1 week. This note was generated with [employer] dictation software. It may contain incorrect words, spelling, and punctuation that were not noted in checking the note before signing.
--- NOTE | 2017-06-29 14:02 | PN.PCM_ITS ---
(1) Rheumatoid arthritis Status: Chronic Code(s): M06.9 - Rheumatoid arthritis, unspecified (2) Traumatic open wound of left lower leg with delayed healing Status: Chronic Code(s): S81.802D - Unspecified open wound, left lower leg, subsequent encounter Type of Wound Date of Service: 06/29/17 Chief Complaint: Traumatic open wound of left leg History of Wound: This is a 71-year-old female who suffered a traumatic injury to the left lateral calf on October 06, 2016. This occurred while she was ascending the steps. She had been under the care of Dr. Ja Bernal at this facility in management of this traumatic wound. The use of allograft or PuraPly has been considered, but denied by the patient's insurance. Patient has had recent culture, positive for Staphylococcus aureus, and has completed a course of Bactrim DS. Current management includes the use of Yen topically, changed every several days. She has previously demonstrated an apparent allergy to collagen hydrogel. The patient has had vascular studies, without evidence of significant superficial vein incompetence in the left lower extremity. Her noninvasive lower extremity arterial study reveals normal ankle? brachial indices bilaterally. Laboratory results have been reviewed from January 04, 2017, and are generally unremarkable. Nutritional labs appear to be normal. White blood count and hemogram are also normal. The patient is noted to be on prednisone and methotrexate. These are acknowledged to be possible inhibitors to wound healing. The patient is aware, and has previously made efforts to wean herself from these medications in collaboration with her salesperson automobiles. Discontinuation of these medications did not sit well with the patient in terms of her rheumatoid arthritis. She has resumed these medications. There has been slight improvement in the size and status of the left lower extremity traumatic wound within the last several weeks. Progress of Wound: Improving. - Physical Exam Vital Signs Temp Pulse Resp BP 97 F L 70 18 114/60 06/29/17 09:50 06/29/17 09:50 06/29/17 09:50 06/29/17 09:50 General: Alert, Oriented x3, Cooperative, No apparent distress HEENT: Atraumatic, Normocephalic Oral: Moist Mucosa Neck: Supple Lungs: Normal air movement Cardiovascular: Regular rate Extremities: No cyanosis, No edema Wound Measurements and Assessment WC - Nurse 1 - General Ulcer Measurement Start: 06/15/17 09:48 Freq: Status: Active Protocol: Activity Type Activity Date Activity User E-Sign Co-Sign Detail Recorded Client Recorded Date Recorded By Document 06/29/17 09:50 RB [id number] 06/29/17 09:58 RB 06/29/17 09:50 Wound Center Nurse 1 [Ulcer Assessment] 1. L lower leg -Combined with other wound No -Current Size (cm) - Length 0.6 -Current Size (cm) - Width 0.4 -Current Size (cm) - Depth 0.1 -Total Square Cm 0.24 -Epithelialization Small 1-33% -Tunneling No -Undermining/Tunneling No -Circular Undermining No -Classification - Thickness Full Thickness without Exposed Support Structure -Exudate Amt None Present (0 %) -Wound Margin Distinct, Outline Attached -Granulation Amt Small (1-33%) -Granulation Quality [place] -Slough/Fibrin Yes -Necrosis Amt Large (67-100%) -Necrotic Tissue Type Adherent Slough -Structure Exposed N/A -Texture (Анна-wound Skin Appearance) Assessed -Moisture (Анна-wound Skin Appearance Dry/Scaly ) -Color (Анна-wound Skin Appearance) Assessed -Temperature (Анна-wound Skin No Abnormality Appearance) (Pt Warm) -Tenderness on Palpation (Анна-wound No Skin Appearance) -Ulcer Cleansing Rinsed/ Irrigated with Saline -Foul Odor after Cleansing No -Anesthetic Used 5% Lidocaine Gel [Edema Assessment] -Lower Limb Edema Present No - Nurse 2 - General Ulcer CM Notes Start: 06/15/17 09:48 Freq: Status: Active Protocol: Activity Type Activity Date Activity User E-Sign Co-Sign Detail Recorded Client Recorded Date Recorded By Document 06/29/17 10:37 DV [id number] 06/29/17 10:40 DV 06/29/17 10:37 Wound Center Nurse 2 [Procedure/Treatment] 1. L lower leg -Time 10:38 -Correct Patient Yes -Correct Side, Site, Position Yes -Correct Procedure Yes -Procedure Performed Yes -Type of Procedure Debridement -Clinical Debridement Subcutaneous -Post Debridement Size (cm) - Length 0.1 -Post Debridement Size (cm) - Width 0.2 -Post Debridement Size (cm) - Depth 0.1 -Total Square Cm 0.02 -Wound/Ulcer Outcome Not Healed -Ulcer Cleansing Rinsed/ Irrigated with Saline -Foul Odor after Cleansing No -Bioengineered Tissue No -Bleeding Controlled with NA -Treatment Response Procedure Tolerated Well [See Physician Procedure note for Specifics] Pain Scale: 0-10 Numeric [Pain] -Is Patient Pain Free? Yes Neurological: Cranial nerves II-XII grossly intact Psych/Mental Status: Normal Affect Debridement Note Post-Debridement Measurements/Treatment WC - Nurse 2 - General Ulcer CM Notes Start: 06/15/17 09:48 Freq: Status: Active Protocol: Activity Type Activity Date Activity User E-Sign Co-Sign Detail Recorded Client Recorded Date Recorded By Document 06/15/17 11:32 DV [id number] 06/15/17 11:35 DV Document 06/29/17 10:37 DV [id number] 06/29/17 10:40 DV 06/15/17 06/29/17 11:32 10:37 Wound Center Nurse 2 1. L lower leg -Time 11:32 10:38 -Correct Patient Yes Yes -Correct Side, Site, Position Yes Yes -Correct Procedure Yes Yes -Procedure Performed Yes Yes -Type of Procedure Debridement Debridement -Clinical Debridement Subcutaneous Subcutaneous -Post Debridement Size (cm) - Length 0.5 0.1 -Post Debridement Size (cm) - Width 0.3 0.2 -Post Debridement Size (cm) - Depth 0.2 0.1 -Total Square Cm 0.15 0.02 -Wound/Ulcer Outcome Not Healed Not Healed -Ulcer Cleansing Rinsed/ Rinsed/ Irrigated with Irrigated with Saline Saline -Foul Odor after Cleansing No No -Bioengineered Tissue No No -Bleeding Controlled with Pressure NA -Treatment Response Procedure Procedure Tolerated Well Tolerated Well Pain Scale: 0-10 Numeric Is Patient Pain Free? Yes Yes Wound debrided: Left lower extremity ulcer Wound Grade/Stage: Stage II Type of Debridement: Excisional debridement Anesthesia Used: 5% Lidocaine Gel Depth: Down to and including healthy tissue Percentage of wound debrided: 100 Instrument Used: 3mm curette Tissue Removed: Devitalized tissue Severity: Limited To Skin Breakdown Amount of bleeding with debridement: Mild Bleeding Controlled with: Pressure Patient tolerated procedure well Assessment/Plan Assessment: Traumatic wound of the left lateral calf, sustained on October 06, 2016. Patient had initially made slow progress but now seems to have plateued. She suffers from rheumatoid arthritis, for which she is on methotrexate and prednisone, which may be inhibitors of wound healing, and may have contributed to delays in healing of the patient's traumatic wound. Arterial flow to ankle level appears to be normal bilaterally, suggesting that arterial perfusion is adequate for wound healing in the left lower extremity. The patient appears to be a candidate for allograft placement, but has been denied by her insurance company. Plan: Significant progress noted. Wound essentially healed. Minimal superficial area left. Continue Promogran daily after cleaning. Continue protein rich diet and supplements. Elevate lower extremity. Follow-up in 1 week. This note was generated with [employer] dictation software. It may contain incorrect words, spelling, and punctuation that were not noted in checking the note before signing.
== END 2017-07-05 23:59 ==
LOC: WC 09:30
PROVIDERS: Family Provider Family Medicine; PCP Family Medicine; Visit Provider Internal Medicine
DX: L97.822 Non-pressure chronic ulcer of other part of left lower leg with fat layer exposed (principal); M06.9 Rheumatoid arthritis, unspecified
CPT/HCPCS: 11042

== ENCOUNTER 2017-07-06 09:17 | Outpatient (RCR) | payer MEDICARE, SELFPAY ==
[2017-07-06 00:35] VITALS: BP 123/78; PULSE 70; RESP 18; TEMP 36.1
[2017-07-06 09:19] VITALS: BP 151/78; PULSE 78; RESP 16; TEMP 36
--- NOTE | 2017-07-06 10:14 | PCM.WC.PN ---
(1) Hyperparathyroidism Status: Chronic Current Visit: No Code(s): E21.3 - Hyperparathyroidism, unspecified (2) Rheumatoid arthritis Status: Chronic Current Visit: No Code(s): M06.9 - Rheumatoid arthritis, unspecified (3) Traumatic open wound of left lower leg with delayed healing Status: Chronic Current Visit: No Code(s): S81.802D - Unspecified open wound, left lower leg, subsequent encounter Type of Wound Date of Service: 07/06/17 Chief Complaint: Traumatic open wound of left leg History of Wound: This is a 71-year-old female who suffered a traumatic injury to the left lateral calf on October 06, 2016. This occurred while she was ascending the steps. She had been under the care of Dr. Ja Bernal at this facility in management of this traumatic wound. The use of allograft or PuraPly has been considered, but denied by the patient's insurance. Patient has had recent culture, positive for Staphylococcus aureus, and has completed a course of Bactrim DS. Current management includes the use of Yen topically, changed every several days. She has previously demonstrated an apparent allergy to collagen hydrogel. The patient has had vascular studies, without evidence of significant superficial vein incompetence in the left lower extremity. Her noninvasive lower extremity arterial study reveals normal anklebrachial indices bilaterally. Laboratory results have been reviewed from January 04, 2017, and are generally unremarkable. Nutritional labs appear to be normal. White blood count and hemogram are also normal. The patient is noted to be on prednisone and methotrexate. These are acknowledged to be possible inhibitors to wound healing. The patient is aware, and has previously made efforts to wean herself from these medications in collaboration with her outside sales associate. Discontinuation of these medications did not sit well with the patient in terms of her rheumatoid arthritis. She has resumed these medications. There has been slight improvement in the size and status of the left lower extremity traumatic wound within the last several weeks. Progress of Wound: Healed. - Physical Exam Vital Signs Temp Pulse Resp BP 96.8 F L 78 16 151/78 H 07/06/17 09:19 07/06/17 09:19 07/06/17 09:19 07/06/17 09:19 General: Alert, Oriented x3, Cooperative, No apparent distress HEENT: Atraumatic, Normocephalic Oral: Moist Mucosa Neck: Supple Lungs: Normal air movement Cardiovascular: Regular rate Extremities: No cyanosis, No edema Wound Measurements and Assessment WC - Nurse 1 - General Ulcer Measurement Start: 07/06/17 09:18 Freq: Status: Active Protocol: Activity Type Activity Date Activity User E-Sign Co-Sign Detail Recorded Client Recorded Date Recorded By Document 07/06/17 09:19 DL [id number] 07/06/17 09:24 DL 07/06/17 09:19 Wound Center Nurse 1 [Ulcer Assessment] 1. L lower leg -Current Size (cm) - Length 0.1 -Current Size (cm) - Width 0.1 -Current Size (cm) - Depth 0.1 -Total Square Cm 0.01 -Photo Taken Yes -Exudate Amt None Present (0 %) -Wound Margin Flat & Intact -Granulation Amt Large (67-100%) -Granulation Quality [place] -Necrosis Amt Small (1-33%) -Necrotic Tissue Type Adherent Slough -Structure Exposed N/A -Texture (Анна-wound Skin Appearance) Scarring -Moisture (Анна-wound Skin Appearance Dry/Scaly ) -Color (Анна-wound Skin Appearance) No Abnormality -Temperature (Анна-wound Skin No Abnormality Appearance) (Pt Warm) -Tenderness on Palpation (Анна-wound No Skin Appearance) -Ulcer Cleansing Rinsed/ Irrigated with Saline -Foul Odor after Cleansing No -Anesthetic Used 4% Lidocaine Solution WC - Nurse 2 - General Ulcer CM Notes Start: 07/06/17 09:18 Freq: Status: Active Protocol: Activity Type Activity Date Activity User E-Sign Co-Sign Detail Recorded Client Recorded Date Recorded By Document 07/06/17 10:01 DV [id number] 07/06/17 10:05 DV 07/06/17 10:01 Wound Center Nurse 2 [Procedure/Treatment] -Time 10:01 -Correct Patient Yes -Correct Side, Site, Position Yes -Procedure Performed No -Post Debridement Size (cm) - Length 0 -Post Debridement Size (cm) - Width 0 -Post Debridement Size (cm) - Depth 0 -Total Square Cm 0 -Wound/Ulcer Outcome Healed- Epithelialized [See Physician Procedure note for Specifics] Pain Scale: 0-10 Numeric [Pain] -Is Patient Pain Free? Yes Neurological: Cranial nerves II-XII grossly intact Psych/Mental Status: Normal Affect Debridement Note Post-Debridement Measurements/Treatment WC - Nurse 2 - General Ulcer CM Notes Start: 07/06/17 09:18 Freq: Status: Active Protocol: Activity Type Activity Date Activity User E-Sign Co-Sign Detail Recorded Client Recorded Date Recorded By Document 07/06/17 10:01 DV [id number] 07/06/17 10:05 DV 07/06/17 10:01 Wound Center Nurse 2 1. L lower leg -Time 10:01 -Correct Patient Yes -Correct Side, Site, Position Yes -Procedure Performed No -Post Debridement Size (cm) - Length 0 -Post Debridement Size (cm) - Width 0 -Post Debridement Size (cm) - Depth 0 -Total Square Cm 0 -Wound/Ulcer Outcome Healed- Epithelialized Pain Scale: 0-10 Numeric Is Patient Pain Free? Yes No debridement was completed today Assessment/Plan Assessment: Traumatic Open wound left lower extremity - Healed. Plan: Wound is healed. Appropriate skin care/ health discussed. Protect area until more tough skin present. Hair skin and nails supplements also recommended. Continue protein rich diet and supplements. Advised to call with questions or concerns. Discharged from the wound clinic. This note was generated with [employer] dictation software. It may contain incorrect words, spelling, and punctuation that were not noted in checking the note before signing.
--- NOTE | 2017-07-06 10:20 | PN.PCM_ITS ---
(1) Hyperparathyroidism Status: Chronic Current Visit: No Code(s): E21.3 - Hyperparathyroidism, unspecified (2) Rheumatoid arthritis Status: Chronic Current Visit: No Code(s): M06.9 - Rheumatoid arthritis, unspecified (3) Traumatic open wound of left lower leg with delayed healing Status: Chronic Current Visit: No Code(s): S81.802D - Unspecified open wound , left lower leg, subsequent encounter Type of Wound Date of Service: 07/06/17 Chief Complaint: Traumatic open wound of left leg History of Wound: This is a 71-year-old female who suffered a traumatic injury to the left lateral calf on October 06, 2016. This occurred while she was ascending the steps. She had been under the care of Dr. Ja Bernal at this facility in management of this traumatic wound. The use of allograft or PuraPly has been considered, but denied by the patient's insurance. Patient has had recent culture, positive for Staphylococcus aureus, and has completed a course of Bactrim DS. Current management includes the use of Yen topically, changed every several days. She has previously demonstrated an apparent allergy to collagen hydrogel. The patient has had vascular studies, without evidence of significant superficial vein incompetence in the left lower extremity. Her noninvasive lower extremity arterial study reveals normal ankle? brachial indices bilaterally. Laboratory results have been reviewed from January 04, 2017, and are generally unremarkable. Nutritional labs appear to be normal. White blood count and hemogram are also normal. The patient is noted to be on prednisone and methotrexate. These are acknowledged to be possible inhibitors to wound healing. The patient is aware, and has previously made efforts to wean herself from these medications in collaboration with her serology teacher. Discontinuation of these medications did not sit well with the patient in terms of her rheumatoid arthritis. She has resumed these medications. There has been slight improvement in the size and status of the left lower extremity traumatic wound within the last several weeks. Progress of Wound: Healed. - Physical Exam Vital Signs Temp Pulse Resp BP 96.8 F L 78 16 151/78 H 07/06/17 09:19 07/06/17 09:19 07/06/17 09:19 07/06/17 09:19 General: Alert, Oriented x3, Cooperative, No apparent distress HEENT: Atraumatic, Normocephalic Oral: Moist Mucosa Neck: Supple Lungs: Normal air movement Cardiovascular: Regular rate Extremities: No cyanosis, No edema Wound Measurements and Assessment WC - Nurse 1 - General Ulcer Measurement Start: 07/06/17 09:18 Freq: Status: Active Protocol: Activity Type Activity Date Activity User E-Sign Co-Sign Detail Recorded Client Recorded Date Recorded By Document 07/06/17 09:19 DL [id number] 07/06/17 09:24 DL 07/06/17 09:19 Wound Center Nurse 1 [Ulcer Assessment] 1. L lower leg -Current Size (cm) - Length 0.1 -Current Size (cm) - Width 0.1 -Current Size (cm) - Depth 0.1 -Total Square Cm 0.01 -Photo Taken Yes -Exudate Amt None Present (0 %) -Wound Margin Flat & Intact -Granulation Amt Large (67-100%) -Granulation Quality Pale [place] -Necrosis Amt Small (1-33%) -Necrotic Tissue Type Adherent Slough -Structure Exposed N/A -Texture (Анна-wound Skin Appearance) Scarring -Moisture (Анна-wound Skin Appearance Dry/Scaly ) -Color (Анна-wound Skin Appearance) No Abnormality -Temperature (Анна-wound Skin No Abnormality Appearance) (Pt Warm) -Tenderness on Palpation (Анна-wound No Skin Appearance) -Ulcer Cleansing Rinsed/ Irrigated with Saline -Foul Odor after Cleansing No -Anesthetic Used 4% Lidocaine Solution WC - Nurse 2 - General Ulcer CM Notes Start: 07/06/17 09:18 Freq: Status: Active Protocol: Activity Type Activity Date Activity User E-Sign Co-Sign Detail Recorded Client Recorded Date Recorded By Document 07/06/17 10:01 DV [id number] 07/06/17 10:05 DV 07/06/17 10:01 Wound Center Nurse 2 [Procedure/Treatment] -Time 10:01 -Correct Patient Yes -Correct Side, Site, Position Yes -Procedure Performed No -Post Debridement Size (cm) - Length 0 -Post Debridement Size (cm) - Width 0 -Post Debridement Size (cm) - Depth 0 -Total Square Cm 0 -Wound/Ulcer Outcome Healed- Epithelialized [See Physician Procedure note for Specifics] Pain Scale: 0-10 Numeric [Pain] -Is Patient Pain Free? Yes Neurological: Cranial nerves II-XII grossly intact Psych/Mental Status: Normal Affect Debridement Note Post-Debridement Measurements/Treatment WC - Nurse 2 - General Ulcer CM Notes Start: 07/06/17 09:18 Freq: Status: Active Protocol: Activity Type Activity Date Activity User E-Sign Co-Sign Detail Recorded Client Recorded Date Recorded By Document 07/06/17 10:01 DV [id number] 07/06/17 10:05 DV 07/06/17 10:01 Wound Center Nurse 2 1. L lower leg -Time 10:01 -Correct Patient Yes -Correct Side, Site, Position Yes -Procedure Performed No -Post Debridement Size (cm) - Length 0 -Post Debridement Size (cm) - Width 0 -Post Debridement Size (cm) - Depth 0 -Total Square Cm 0 -Wound/Ulcer Outcome Healed- Epithelialized Pain Scale: 0-10 Numeric Is Patient Pain Free? Yes No debridement was completed today Assessment/Plan Assessment: Traumatic Open wound left lower extremity - Healed. Plan: Wound is healed. Appropriate skin care/ health discussed. Protect area until more tough skin present. Hair skin and nails supplements also recommended. Continue protein rich diet and supplements. Advised to call with questions or concerns. Discharged from the wound clinic. This note was generated with [employer] dictation software. It may contain incorrect words, spelling, and punctuation that were not noted in checking the note before signing.
== END 2017-08-05 23:59 ==
LOC: WC 09:17
PROVIDERS: Family Provider Family Medicine; PCP Family Medicine; Visit Provider Internal Medicine
DX: Z09 Encounter for follow-up examination after completed treatment for conditions other than malignant neoplasm (principal); M06.9 Rheumatoid arthritis, unspecified; E21.3 Hyperparathyroidism, unspecified
CPT/HCPCS: 99212; G0463

== ENCOUNTER 2020-06-05 09:45 | Outpatient (RCR) | payer MEDICARE, SELFPAY ==
[2020-05-29 10:24] VITALS: BP 162/95; PULSE 95; RESP 18; TEMP 36.8; BMI 18.6
[2020-05-29 12:20] VITALS: BP 160/90
--- NOTE | 2020-05-29 12:50 | HP.PCM_ITS ---
(1) Pressure ulcer of toe of left foot, stage 4 Status: Chronic Code(s): L89.894 - Pressure ulcer of other site, stage 4 (2) Hypertension Status: Chronic Qualifiers: Hypertension type: essential hypertension Code(s): I10 - Essential (primary) hypertension (3) Hyperparathyroidism Status: Chronic Code(s): E21.3 - Hyperparathyroidism, unspecified (4) Osteoporosis Status: Chronic Qualifiers: Osteoporosis type: unspecified Presence of current pathological fracture: without current pathological fracture Qualified Code(s): M81.0 - Age-related osteoporosis without current pathological fracture Code(s): M81.0 - Age-related osteoporosis without current pathological fracture (5) Osteoarthritis Status: Chronic Qualifiers: Osteoarthritis location: multiple joints Osteoarthritis type: unspecified Qualified Code(s): M15.9 - Polyosteoarthritis, unspecified Code(s): M19.90 - Unspecified osteoarthritis, unspecified site (6) Rheumatoid arthritis Status: Chronic Qualifiers: Rheumatoid arthritis location: multiple sites Rheumatoid factor presence: with rheumatoid factor Qualified Code(s): M05.79 - Rheumatoid arthritis with rheumatoid factor of multiple sites without organ or systems involvement Code(s): M06.9 - Rheumatoid arthritis, unspecified History of Present Illness Date of Service: 05/29/20 Chief Complaint: Pressure ulcer plantar left great toe/metatarsal History of Wound: Kylah is a 75-year-old female who was referred here for treatment of an ulcer at the base of her great toe at her metatarsal head from Dr. Poe, her clinical document improvement educator. She has been receiving treatment to this area for the last [address] Poe has attempted to debride and close it surgically with sutures but it reopened and it hasn't healed. She has been seeing him weekly and has been using silvadene and Aquacel Ag to treat her ulcer with dressing changes once weekly and sometimes once in between if there is a lot of drainage. 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 Patient has had a recent culture on 05/11/20, positive for Staphylococcus lugendenosis, and is currently taking Clindmycin 300 mg TID. She has previously demonstrated an apparent allergy to collagen hydrogel. The patient has had vascular studies, without evidence of significant superficial vein incompetence in the left lower extremity. Her noninvasive lower extremity arterial study reveals normal ankle?brachial indices bilaterally. The patient is noted to be on prednisone and methotrexate. These are acknowledged to be possible inhibitors to wound healing. The patient is aware, and has previously made efforts to wean herself from these medications in collaboration with her delivery mgr. She is set to start a new treatment that is an infusion with the hopes of being able to wean off of prednisone at the very least and possibly methotrexate. There are no recent labs for review. She also has not had any xrays of the toe/foot recently. Dr. Poe discussed radiology study to be ordered at her visit here after seeing her last week. She denies any systemic signs of infection such as fever, chills, erythema, increased drainage, nausea, vomiting. Past Medical History Past Medical History: Chronic Problems Pressure ulcer of toe of left foot, stage 4 (Chronic) Traumatic open wound of left lower leg with delayed healing (Chronic) Hypertension (Chronic) Hyperparathyroidism (Chronic) Osteoporosis (Chronic) Osteoarthritis (Chronic) Rheumatoid arthritis (Chronic) Surgical History: no surgical history, - Allergies/Adverse Reactions: Allergies No Known Allergies Allergy (Verified 05/29/20 10:46) Home Medications: Ambulatory Orders Medication Instructions Recorded Benazepril HCl [Lotensin] 20 mg PO DAILY 12/21/16 Cyclosporine [Restasis] 2 drop OP 12/21/16 Denosumab [Prolia] 60 mg SQ 12/21/16 Estrogens, Conjugated [Premarin] 1 dose VAGINAL DAILY 12/21/16 Folic Acid 1 mg PO DAILY@0800 12/21/16 Hydroxychloroquine [Plaquenil] 200 mg PO DAILYCM 12/21/16 Methotrexate Sodium/Pf 25 mg IJ 12/21/16 [Methotrexate 25 mg/ml Vial] predniSONE tablet 12 mg PO DAILY 12/21/16 traMADol [Ultram (G)] 50 mg PO Q4H PRN PRN 12/21/16 Levothyroxine [Synthroid] 75 mcg PO DAILY 06/29/17 - Family History Maternal - - The patient's father at age of 59 with a history of heart disease. Patient's mother at the age of 75 with a history of scleroderma. Lives: Spouse/ Significant Other Smoking Status: Never smoker Tobacco Use: Non-smoker Alcohol: None Drugs: None Review of Systems Constitutional: Denies: Chills, Fever, Weight Change Eyes: Denies: Pain, Vision Change HEENT: Denies: Difficulty Hearing, Difficulty Swallowing, Sinus Congestion Cardiovascular: Denies: Chest Pain, Palpitations Respiratory: Denies: Cough, Shortness of Breath Gastrointestinal: Denies: Diarrhea, Nausea, Vomiting Genitourinary: Denies: Dysuria, Hematuria Skin: Reports: Wounds Hematologic/ Lymphatic: Denies: Easy Bruising, Easy Bleeding - Physical Exam Vital Signs Temp Pulse Resp BP 98.3 F 95 18 160/90 H 05/29/20 10:24 05/29/20 10:24 05/29/20 10:24 05/29/20 12:20 General: Alert, Oriented x3, Cooperative, No apparent distress HEENT: Atraumatic, Normocephalic Oral: Moist Mucosa Neck: Supple Lungs: Clear to auscultation Cardiovascular: Regular rate, Regular Rhythm Abdomen: Soft, Non Tender Extremities: No clubbing, No cyanosis, No edema, Capillary Refill Less than 3 Seconds, No Calf Tenderness, Peripheral Pulses Normal Skin: Ulcer/ Wound Wound Measurements and Assessment WC - Nurse 1 - General Ulcer Measurement Start: 05/29/20 10:21 Freq: Status: Active Protocol: Activity Type Activity Date Activity User E-Sign Co-Sign Detail Recorded Client Recorded Date Recorded By Document 05/29/20 10:24 REJI [id number] 05/29/20 10:44 REJI 05/29/20 10:24 Wound Center Nurse 1 [Ulcer Assessment] #2-LEFT 1ST METATARSAL FOOT -Combined with other wound No -Current Size (cm) - Length 0.4 -Current Size (cm) - Width 0.4 -Current Size (cm) - Depth 0.5 -Total Square Cm 0.16 -Photo Taken Yes -Epithelialization None Present -Tunneling No -Undermining/Tunneling No -Circular Undermining No -Classification - Pressure Ulcer Stage 3 -Exudate Amt Medium -Exudate Type Serosanguineous -Wound Margin Flat & Intact -Granulation Amt Small (1-33%) -Granulation Quality Red -Slough/Fibrin Yes -Necrosis Amt Small (1-33%) -Necrotic Tissue Type Adherent Slough -Structure Exposed Bone -Texture (Анна-wound Skin Appearance) Assessed -Moisture (Анна-wound Skin Appearance Assessed,Dry/ ) Scaly -Color (Анна-wound Skin Appearance) Assessed -Temperature (Анна-wound Skin No Abnormality Appearance) (Pt Warm) -Tenderness on Palpation (Анна-wound No Skin Appearance) -Ulcer Cleansing Rinsed/ Irrigated with Saline -Foul Odor after Cleansing No -Anesthetic Used 5% Lidocaine Gel [Edema Assessment] -Lower Limb Edema Present No WC - Nurse 2 - General Ulcer CM Notes Start: 05/29/20 10:21 Freq: Status: Active Protocol: Activity Type Activity Date Activity User E-Sign Co-Sign Detail Recorded Client Recorded Date Recorded By Document 05/29/20 11:09 MW [id number] 05/29/20 11:43 MW 05/29/20 11:09 Wound Center Nurse 2 [Procedure/Treatment] #3 LEFT 4TH METATARSAL FOOT -Time 11:39 -Correct Patient Yes -Correct Side, Site, Position Yes -Correct Procedure Yes -Procedure Performed Yes -Type of Procedure Debridement -Clinical Debridement Subcutaneous -Tissue Removed Subcutaneous -Post Debridement (cm) - Length 0.2 -Post Debridement (cm) - Width 0.2 -Post Debridement (cm) - Depth 0.1 -Total Square (Post) (cm) 0.04 -Area of Debridement (cm) - Length 0.2 -Area of Debridement (cm) - Width 0.2 -Total Square (Area) (cm) 0.04 -Tunneling No -Undermining/Tunneling No -Circular Undermining No -Wound/Ulcer Outcome Not Healed -Ulcer Cleansing Rinsed/ Irrigated with Saline -Foul Odor after Cleansing No -Bioengineered Tissue No -Bleeding Controlled with Pressure -Offloading No -Treatment Response Procedure Tolerated Well -Debridement - Subq, 1st 20sq cm No #2-LEFT 1ST METATARSAL FOOT -Time 11:10 -Correct Patient Yes -Correct Side, Site, Position Yes -Correct Procedure Yes -Procedure Performed Yes -Type of Procedure Debridement -Clinical Debridement Bone -Tissue Removed Slough -Post Debridement (cm) - Length 0.5 -Post Debridement (cm) - Width 0.8 -Post Debridement (cm) - Depth 0.4 -Total Square (Post) (cm) 0.40 -Area of Debridement (cm) - Length 0.5 -Area of Debridement (cm) - Width 0.8 -Total Square (Area) (cm) 0.40 -Tunneling No -Undermining/Tunneling No -Undermining/Tunneling Starts (O' 6 clock) -Undermining/Tunneling Ends (O'clock) 11 -Maximum Distance (cm) 0.3 -Circular Undermining No -Wound/Ulcer Outcome Not Healed -Ulcer Cleansing Rinsed/ Irrigated with Saline -Foul Odor after Cleansing No -Bioengineered Tissue No -Bleeding Controlled with Pressure -Offloading No -Treatment Response Procedure Tolerated Well -Debridement - Bone, 1st 20sq cm Yes [See Physician Procedure note for Specifics] Pain Scale: 0-10 Numeric [Pain] -Is Patient Pain Free? Yes - Nurse 3 - General Ulcer D/C NN Start: 05/29/20 10:21 Freq: Status: Active Protocol: Activity Type Activity Date Activity User E-Sign Co-Sign Detail Recorded Client Recorded Date Recorded By Document 05/29/20 12:20 RB [id number] 05/29/20 12:22 RB 05/29/20 12:20 Wound Care Nurse 3 [Wound Dressing] #3 LEFT 4TH METATARSAL FOOT -Ulcer Cleansing Rinsed/ Irrigated with Saline -Primary Dressing Applied Promogran -Primary Dressing Covered/Secured Dry Gauze,Dry with Gauze & Roll Gauze,Secured with Tape -Promogran 1 #2-LEFT 1ST METATARSAL FOOT -Ulcer Cleansing Rinsed/ Irrigated with Saline -Primary Dressing Applied Aquacel Extra -Primary Dressing Covered/Secured Dry Gauze,Dry with Gauze & Roll Gauze,Secured with Tape -Aquacel Extra 1 [Post Procedure Tolerated] -Treatment Response Procedure Tolerated Well Vital Signs [Blood Pressure] -Blood Pressure (90/60-120/80) 160/90 H -Blood Pressure Mean (mm Hg) 113 -Source Monitor -Position Sitting -Blood Pressure Location Left Arm Pain Scale: 0-10 Numeric [Pain] -Is Patient Pain Free? Yes WC - Visit Discharge [Visit Discharge Information] -Discharge Condition Stable -Ambulatory Status Ambulatory -Transportation Private Auto -Medication Reconcilliation completed No & provided to patient/care provider -Clinical Summary of Care Provided Yes Psych/Mental Status: Normal Affect, Appropriate Debridement Note Post-Debridement Measurements/Treatment WC - Nurse 2 - General Ulcer CM Notes Start: 05/29/20 10:21 Freq: Status: Active Protocol: Activity Type Activity Date Activity User E-Sign Co-Sign Detail Recorded Client Recorded Date Recorded By Document 05/29/20 11:09 MW [id number] 05/29/20 11:43 MW 05/29/20 11:09 Wound Center Nurse 2 #3 LEFT 4TH METATARSAL FOOT -Time 11:39 -Correct Patient Yes -Correct Side, Site, Position Yes -Correct Procedure Yes -Procedure Performed Yes -Type of Procedure Debridement -Clinical Debridement Subcutaneous -Tissue Removed Subcutaneous -Post Debridement (cm) - Length 0.2 -Post Debridement (cm) - Width 0.2 -Post Debridement (cm) - Depth 0.1 -Total Square (Post) (cm) 0.04 -Area of Debridement (cm) - Length 0.2 -Area of Debridement (cm) - Width 0.2 -Total Square (Area) (cm) 0.04 -Tunneling No -Undermining/Tunneling No -Circular Undermining No -Wound/Ulcer Outcome Not Healed -Ulcer Cleansing Rinsed/ Irrigated with Saline -Foul Odor after Cleansing No -Bioengineered Tissue No -Bleeding Controlled with Pressure -Offloading No -Treatment Response Procedure Tolerated Well -Debridement - Subq, 1st 20sq cm No #2-LEFT 1ST METATARSAL FOOT -Time 11:10 -Correct Patient Yes -Correct Side, Site, Position Yes -Correct Procedure Yes -Procedure Performed Yes -Type of Procedure Debridement -Clinical Debridement Bone -Tissue Removed Slough -Post Debridement (cm) - Length 0.5 -Post Debridement (cm) - Width 0.8 -Post Debridement (cm) - Depth 0.4 -Total Square (Post) (cm) 0.40 -Area of Debridement (cm) - Length 0.5 -Area of Debridement (cm) - Width 0.8 -Total Square (Area) (cm) 0.40 -Tunneling No -Undermining/Tunneling No -Undermining/Tunneling Starts (O'clock 6 ) -Undermining/Tunneling Ends (O'clock) 11 -Maximum Distance (cm) 0.3 -Circular Undermining No -Wound/Ulcer Outcome Not Healed -Ulcer Cleansing Rinsed/ Irrigated with Saline -Foul Odor after Cleansing No -Bioengineered Tissue No -Bleeding Controlled with Pressure -Offloading No -Treatment Response Procedure Tolerated Well -Debridement - Bone, 1st 20sq cm Yes Pain Scale: 0-10 Numeric Is Patient Pain Free? Yes WC - Nurse 3 - General Ulcer D/C NN Start: 01/22/21 10:21 Freq: Status: Active Protocol: Activity Type Activity Date Activity User E-Sign Co-Sign Detail Recorded Client Recorded Date Recorded By Document 05/29/20 12:20 HANNAH [id number] 05/29/20 12:22 HANNAH 05/29/20 12:20 Wound Care Nurse 3 #3 LEFT 4TH METATARSAL FOOT -Ulcer Cleansing Rinsed/ Irrigated with Saline -Primary Dressing Applied Promogran -Primary Dressing Covered/Secured with Dry Gauze,Dry Gauze & Roll Gauze,Secured with Tape -Promogran 1 #2-LEFT 1ST METATARSAL FOOT -Ulcer Cleansing Rinsed/ Irrigated with Saline -Primary Dressing Applied Aquacel Extra -Primary Dressing Covered/Secured with Dry Gauze,Dry Gauze & Roll Gauze,Secured with Tape -Aquacel Extra 1 Treatment Response Procedure Tolerated Well Vital Signs Blood Pressure (90/60-120/80) 160/90 H Blood Pressure Mean (mm Hg) 113 Source Monitor Position Sitting Blood Pressure Location Left Arm Pain Scale: 0-10 Numeric Is Patient Pain Free? Yes WC - Visit Discharge Discharge Condition Stable Ambulatory Status Ambulatory Transportation Private Auto Medication Reconcilliation completed & No provided to patient/care provider Clinical Summary of Care Provided Yes Wound debrided: left 4th metatarsal foot plantar Laterality: Left Wound Grade/Stage: Stage 2 Type of Debridement: Excisional debridement Anesthesia Used: 5% Lidocaine Gel Depth: Down to and including healthy tissue, in the subcutaneous layer Percentage of wound debrided: 100 Instrument Used: #15 blade, Forceps Tissue Removed: yellow slough, devitalized tissue Severity: Fat Layer Exposed Amount of bleeding with debridement: Mild Bleeding Controlled with: Compression and gauze Patient tolerated procedure well - Additional Wound Wound debrided: left 1st metatarsal foot plantar Laterality: Left Wound Grade/Stage: Stage 4 Type of Debridement: Excisional debridement Anesthesia Used: 5% Lidocaine Gel Depth: Down to and including healthy tissue, in the subcutaneous layer Percentage of wound debrided: 100 Instrument Used: #15 blade, Forceps Tissue Removed: Yellow slough, devitalized tissue Severity: Fat Layer Exposed Amount of bleeding with debridement: Mild Bleeding Controlled with: Compression and gauze Patient tolerated procedure: Patient tolerated procedure well Assessment/Plan Active Problems Pressure ulcer of toe of left foot, stage 4 (Chronic) Hypertension (Chronic) Hyperparathyroidism (Chronic) Osteoporosis (Chronic) Osteoarthritis (Chronic) Rheumatoid arthritis (Chronic) Assessment: Stage 4 pressure ulcer left plantar foot 1st metatarsal head. Stage 2 pressure ulcer left plantar foot 4th metatarsal head. Rheumatoid arthritis. Chronic immunosuppression. Chronic prednisone use Plan: Kylah's ulcers were evaluated and debrided today at the wound center. The etiology of her ulcers appears to be from pressure at sites of bone spurs which may be related to her rheumatoid arthritis, chronic prednisone treatment may also have a role in the nonhealing of the ulcers. Xray was ordered to evaluate for osteomyelitis due to the exposed bone. She will continue clindamycin at this time until osteomyelitisis ruled out. She was given a prescription to continue clindamycin if needed. Offloading was discussed and her insole of her sneaker was modified with padding to provide better offloading. She was advised to try to avoid standing and being on her feet for long periods and to elevate her feet as much as possible. Will reach out to her primary care doctor to obtain recent lab testing. I do not see any problem with her starting the infusion treatment for her rheumatoid arthritis especially if there is not osteomyelitis present which I am not highly suspicious of based on clinical appearance of her ulcer and examination. The bone does not appear to have necrosis at this time but will make her delivery mgr aware if there is e vidence on Xray. She is homebound at it is difficult for her to leave her home on a regular basis to have dressings changed and her has difficulty with changing her dressings due to his own arthritis. She would benefit from Home Health to assist in dressing changes and care of the ulcers. Encouraged protein rich diet and protein supplements. Advised to call with questions or concerns. This note was generated with [employer] software. It may contain incorrect words, spelling, and punctuation that were not noted in checking the note before signing.
[2020-06-05 09:58] VITALS: BP 187/94; PULSE 91; RESP 18; TEMP 36.3; BMI 18.6
--- NOTE | 2020-06-05 10:00 | WC ---
PT STATES OFF LOADING FELT PLACE IN PT LEFT SHOE LAST WEEK MADE PTS SHOE TOO TIGHT AND MADE UCLER MORE PAINFUL WHEN WALKING.
--- NOTE | 2020-06-05 12:05 | PN.PCM_ITS ---
(1) Pressure ulcer of toe of left foot, stage 4 Status: Chronic Code(s): L89.894 - Pressure ulcer of other site, stage 4 (2) Hypertension Status: Chronic Qualifiers: Hypertension type: essential hypertension Qualified Code(s): I10 - Essential (primary) hypertension Code(s): I10 - Essential (primary) hypertension (3) Hyperparathyroidism Status: Chronic Code(s): E21.3 - Hyperparathyroidism, unspecified (4) Osteoporosis Status: Chronic Qualifiers: Osteoporosis type: unspecified Presence of current pathological fracture: without current pathological fracture Qualified Code(s): M81.0 - Age-related osteoporosis without current pathological fracture Code(s): M81.0 - Age-related osteoporosis without current pathological fracture (5) Osteoarthritis Status: Chronic Qualifiers: Osteoarthritis location: multiple joints Osteoarthritis type: unspecified Qualified Code(s): M15.9 - Polyosteoarthritis, unspecified Code(s): M19.90 - Unspecified osteoarthritis, unspecified site (6) Rheumatoid arthritis Status: Chronic Qualifiers: Rheumatoid arthritis location: multiple sites Rheumatoid factor presence: with rheumatoid factor Qualified Code(s): M05.79 - Rheumatoid arthritis with rheumatoid factor of multiple sites without organ or systems involvement Code(s): M06.9 - Rheumatoid arthritis, unspecified Type of Wound Date of Service: 06/06/20 Chief Complaint: Pressure ulcer plantar left great toe/metatarsal History of Wound: Kylah is a 75-year-old female who was referred here for treatment of an ulcer at the base of her great toe at her metatarsal head from Carissa Poe, her certified surgical first assistant. She has been receiving treatment to this area for the last [address] Poe has attempted to debride and close it surgically with sutures but it reopened and it hasn't healed. She has been seeing him weekly and has been using silvadene and Aquacel Ag to treat her ulcer with dressing changes once weekly and sometimes once in between if there is a lot of drainage. 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 Patient has had a recent culture on 05/11/20, positive for Staphylococcus lugendenosis, and is currently taking Clindmycin 300 mg TID. She has previously demonstrated an apparent allergy to collagen hydrogel. The patient has had vascular studies, without evidence of significant superficial vein incompetence in the left lower extremity. Her noninvasive lower extremity arterial study reveals normal ankle?brachial indices bilaterally. The patient is noted to be on prednisone and methotrexate. These are acknowledged to be possible inhibitors to wound healing. 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 She is set to start a new treatment that is an infusion with the hopes of being able to wean off of prednisone at the very least and possibly methotrexate. There are no recent labs for review. She also has not had any xrays of the toe/foot recently. Dr. Poe discussed radiology study to be ordered at her visit here after seeing her last week. She denies any systemic signs of infection such as fever, chills, erythema, increased drainage, nausea, vomiting. Progress of Wound: Kylah returns today for follow up of ulcers of her left plantar foot. There has been no improvement of her 1st metatarsal but some improvement of the 4th metatarsal. She tolerated dressings of Aquacel Extra to her 1st metatarsal and Promogran to her 4th metatarsal and changed every other day. She and her declined home health assistance with dressings and her has done her dressing changes. She completed Clindamycin on 06/03/20. She had xray done on 05/29/20 which did not show any evidence of osteomyelitis. She denies fever, chills, increased drainage, erythyema or odor. - Physical Exam Vital Signs Temp Pulse Resp BP 97.3 F L 91 18 187/94 H 06/05/20 09:58 06/05/20 09:58 06/05/20 09:58 06/05/20 09:58 General: Alert, Oriented x3, Cooperative, No apparent distress HEENT: Atraumatic, Normocephalic Oral: Moist Mucosa Neck: Supple Abdomen: Soft, Non Tender Extremities: No clubbing, No cyanosis, No edema, Peripheral Pulses Normal Skin: Ulcer/ Wound Wound Measurements and Assessment WC - Nurse 1 - General Ulcer Measurement Start: 05/29/20 10:21 Freq: Status: Active Protocol: Activity Type Activity Date Activity User E-Sign Co-Sign Detail Recorded Client Recorded Date Recorded By Document 06/05/20 09:58 HANNAH [id number] 06/05/20 10:00 RB 06/05/20 09:58 Wound Center Nurse 1 [Ulcer Assessment] #3 LEFT 4TH METATARSAL FOOT -Combined with other wound No -Current Size (cm) - Length 0.2 -Current Size (cm) - Width 0.3 -Current Size (cm) - Depth 0.2 -Total Square Cm 0.06 -Tunneling No -Undermining/Tunneling No -Circular Undermining No -Exudate Amt Small -Exudate Type Serosanguineous -Wound Margin Flat & Intact -Granulation Amt Medium (34-66%) -Granulation Quality [place] -Slough/Fibrin Yes -Necrosis Amt Small (1-33%) -Necrotic Tissue Type Adherent Slough -Structure Exposed N/A -Texture (Анна-wound Skin Appearance) Assessed,Callus -Moisture (Анна-wound Skin Appearance Assessed ) -Color (Анна-wound Skin Appearance) Assessed -Temperature (Анна-wound Skin No Abnormality Appearance) (Pt Warm) -Tenderness on Palpation (Анна-wound No Skin Appearance) -Ulcer Cleansing Wound Cleanser -Foul Odor after Cleansing No -Anesthetic Used 4% Lidocaine Solution #2-LEFT 1ST METATARSAL FOOT -Combined with other wound No -Current Size (cm) - Length 0.4 -Current Size (cm) - Width 0.6 -Current Size (cm) - Depth 0.5 -Total Square Cm 0.24 -Tunneling No -Undermining/Tunneling No -Circular Undermining No -Exudate Amt Small -Exudate Type Serosanguineous -Wound Margin Thickened -Granulation Amt Medium (34-66%) -Granulation Quality [place],Red -Slough/Fibrin Yes -Necrosis Amt Small (1-33%) -Necrotic Tissue Type Adherent Slough -Structure Exposed N/A -Texture (Анна-wound Skin Appearance) Assessed,Callus -Moisture (Анна-wound Skin Appearance Assessed ) -Color (Анна-wound Skin Appearance) Assessed -Temperature (Анна-wound Skin No Abnormality Appearance) (Pt Warm) -Tenderness on Palpation (Анна-wound No Skin Appearance) -Ulcer Cleansing Wound Cleanser -Foul Odor after Cleansing No -Anesthetic Used 4% Lidocaine Solution WC - Nurse 2 - General Ulcer CM Notes Start: 05/29/20 10:21 Freq: Status: Active Protocol: Activity Type Activity Date Activity User E-Sign Co-Sign Detail Recorded Client Recorded Date Recorded By Document 06/05/20 10:09 MW [id number] 06/05/20 10:29 MW 06/05/20 10:09 Wound Center Nurse 2 [Procedure/Treatment] #3 LEFT 4TH METATARSAL FOOT -Time 10:13 -Correct Patient Yes -Correct Side, Site, Position Yes -Correct Procedure Yes -Procedure Performed Yes -Type of Procedure Debridement -Clinical Debridement Subcutaneous -Tissue Removed Subcutaneous -Post Debridement (cm) - Length 0.1 -Post Debridement (cm) - Width 0.3 -Post Debridement (cm) - Depth 0.1 -Total Square (Post) (cm) 0.03 -Area of Debridement (cm) - Length 0.1 -Area of Debridement (cm) - Width 0.3 -Total Square (Area) (cm) 0.03 -Tunneling No -Undermining/Tunneling No -Circular Undermining No -Wound/Ulcer Outcome Not Healed -Ulcer Cleansing Rinsed/ Irrigated with Saline -Foul Odor after Cleansing No -Bioengineered Tissue No -Bleeding Controlled with Pressure -Offloading No -Treatment Response Procedure Tolerated Well -Debridement - Subq, 1st 20sq cm Yes #2-LEFT 1ST METATARSAL FOOT -Time 10:13 -Correct Patient Yes -Correct Side, Site, Position Yes -Correct Procedure Yes -Procedure Performed Yes -Type of Procedure Debridement -Clinical Debridement Subcutaneous -Tissue Removed Subcutaneous -Post Debridement (cm) - Length 0.6 -Post Debridement (cm) - Width 0.8 -Post Debridement (cm) - Depth 0.4 -Total Square (Post) (cm) 0.48 -Area of Debridement (cm) - Length 0.6 -Area of Debridement (cm) - Width 0.8 -Total Square (Area) (cm) 0.48 -Tunneling No -Undermining/Tunneling Yes -Undermining/Tunneling Starts (O' 6 clock) -Undermining/Tunneling Ends (O'clock) 11 -Maximum Distance (cm) 0.6 -Circular Undermining No -Wound/Ulcer Outcome Not Healed -Ulcer Cleansing Rinsed/ Irrigated with Saline -Foul Odor after Cleansing No -Bioengineered Tissue No -Bleeding Controlled with Pressure -Debridement - Subq, 1st 20sq cm No [See Physician Procedure note for Specifics] Pain Scale: 0-10 Numeric [Pain] -Is Patient Pain Free? Yes WC - Nurse 3 - General Ulcer D/C NN Start: 05/29/20 10:21 Freq: Status: Active Protocol: Activity Type Activity Date Activity User E-Sign Co-Sign Detail Recorded Client Recorded Date Recorded By Document 06/05/20 10:31 MW [id number] 06/05/20 10:32 MW 06/05/20 10:31 Wound Care Nurse 3 [Wound Dressing] #3 LEFT 4TH METATARSAL FOOT -Ulcer Cleansing Rinsed/ Irrigated with Saline -Foul Odor after Cleansing No -Negative Pressure Wound Therapy N/A -Primary Dressing Applied Promogran Yen Matter -Primary Dressing Covered/Secured Dry Gauze & with Roll Gauze, Secured with Tape -Promogran Yen Matter 1 #2-LEFT 1ST METATARSAL FOOT -Ulcer Cleansing Rinsed/ Irrigated with Saline -Foul Odor after Cleansing No -Negative Pressure Wound Therapy N/A -Primary Dressing Applied Aquacel Extra -Primary Dressing Covered/Secured Dry Gauze & with Roll Gauze, Secured with Tape -Aquacel Extra 1 [Post Procedure Tolerated] -Treatment Response Procedure Tolerated Well Pain Scale: 0-10 Numeric [Pain] -Is Patient Pain Free? Yes Teaching: Wound Center [Wound Center Education] (Items with an * have Printed Materials Available- Please identify what is given to patient under the Teaching materials given to patient and caregiver Section. Dressing Your Wound -Person Taught Patient -Teaching Method Discussion, Demonstration -Response to teaching Verbalize understanding - Visit Discharge [Visit Discharge Information] -Discharge Condition Stable -Ambulatory Status Ambulatory -Transportation Private Auto -Accompanied by SELF -Medication Reconcilliation completed No & provided to patient/care provider -Clinical Summary of Care Provided Yes Psych/Mental Status: Normal Affect, Appropriate Debridement Note Post-Debridement Measurements/Treatment - Nurse 2 - General Ulcer CM Notes Start: 05/29/20 10:21 Freq: Status: Active Protocol: Activity Type Activity Date Activity User E-Sign Co-Sign Detail Recorded Client Recorded Date Recorded By Document 05/29/20 11:09 MW [id number] 05/29/20 11:43 MW Document 06/05/20 10:09 MW [id number] 06/05/20 10:29 MW 05/29/20 06/05/20 11:09 10:09 Wound Center Nurse 2 #3 LEFT 4TH METATARSAL FOOT -Time 11:39 10:13 -Correct Patient Yes Yes -Correct Side, Site, Position Yes Yes -Correct Procedure Yes Yes -Procedure Performed Yes Yes -Type of Procedure Debridement Debridement -Clinical Debridement Subcutaneous Subcutaneous -Tissue Removed Subcutaneous Subcutaneous -Post Debridement (cm) - Length 0.2 0.1 -Post Debridement (cm) - Width 0.2 0.3 -Post Debridement (cm) - Depth 0.1 0.1 -Total Square (Post) (cm) 0.04 0.03 -Area of Debridement (cm) - Length 0.2 0.1 -Area of Debridement (cm) - Width 0.2 0.3 -Total Square (Area) (cm) 0.04 0.03 -Tunneling No No -Undermining/Tunneling No No -Circular Undermining No No -Wound/Ulcer Outcome Not Healed Not Healed -Ulcer Cleansing Rinsed/ Rinsed/ Irrigated with Irrigated with Saline Saline -Foul Odor after Cleansing No No -Bioengineered Tissue No No -Bleeding Controlled with Pressure Pressure -Offloading No No -Treatment Response Procedure Procedure Tolerated Well Tolerated Well -Debridement - Subq, 1st 20sq cm No Yes #2-LEFT 1ST METATARSAL FOOT -Time 11:10 10:13 -Correct Patient Yes Yes -Correct Side, Site, Position Yes Yes -Correct Procedure Yes Yes -Procedure Performed Yes Yes -Type of Procedure Debridement Debridement -Clinical Debridement Bone Subcutaneous -Tissue Removed Slough Subcutaneous -Post Debridement (cm) - Length 0.5 0.6 -Post Debridement (cm) - Width 0.8 0.8 -Post Debridement (cm) - Depth 0.4 0.4 -Total Square (Post) (cm) 0.40 0.48 -Area of Debridement (cm) - Length 0.5 0.6 -Area of Debridement (cm) - Width 0.8 0.8 -Total Square (Area) (cm) 0.40 0.48 -Tunneling No No -Undermining/Tunneling No Yes -Undermining/Tunneling Starts (O'clock 6 6 ) -Undermining/Tunneling Ends (O'clock) 11 11 -Maximum Distance (cm) 0.3 0.6 -Circular Undermining No No -Wound/Ulcer Outcome Not Healed Not Healed -Ulcer Cleansing Rinsed/ Rinsed/ Irrigated with Irrigated with Saline Saline -Foul Odor after Cleansing No No -Bioengineered Tissue No No -Bleeding Controlled with Pressure Pressure -Offloading No -Treatment Response Procedure Tolerated Well -Debridement - Subq, 1st 20sq cm No -Debridement - Bone, 1st 20sq cm Yes Pain Scale: 0-10 Numeric Is Patient Pain Free? Yes Yes WC - Nurse 3 - General Ulcer D/C NN Start: 05/29/20 10:21 Freq: Status: Active Protocol: Activity Type Activity Date Activity User E-Sign Co-Sign Detail Recorded Client Recorded Date Recorded By Document 05/29/20 12:20 RB [id number] 05/29/20 12:22 RB Document 06/05/20 10:31 MW [id number] 06/05/20 10:32 MW 05/29/20 06/05/20 12:20 10:31 Wound Care Nurse 3 #3 LEFT 4TH METATARSAL FOOT -Ulcer Cleansing Rinsed/ Rinsed/ Irrigated with Irrigated with Saline Saline -Foul Odor after Cleansing No -Negative Pressure Wound Therapy N/A -Primary Dressing Applied Promogran Promogran Yen Matter -Primary Dressing Covered/Secured with Dry Gauze,Dry Dry Gauze & Gauze & Roll Roll Gauze, Gauze,Secured Secured with with Tape Tape -Promogran 1 -Promogran Yen Matter 1 #2-LEFT 1ST METATARSAL FOOT -Ulcer Cleansing Rinsed/ Rinsed/ Irrigated with Irrigated with Saline Saline -Foul Odor after Cleansing No -Negative Pressure Wound Therapy N/A -Primary Dressing Applied Aquacel Extra Aquacel Extra -Primary Dressing Covered/Secured with Dry Gauze,Dry Dry Gauze & Gauze & Roll Roll Gauze, Gauze,Secured Secured with with Tape Tape -Aquacel Extra 1 1 Treatment Response Procedure Procedure Tolerated Well Tolerated Well Vital Signs Blood Pressure (90/60-120/80) 160/90 H Blood Pressure Mean (mm Hg) 113 Source Monitor Position Sitting Blood Pressure Location Left Arm Pain Scale: 0-10 Numeric Is Patient Pain Free? Yes Yes Teaching: Wound Center Dressing Your Wound -Person Taught Patient -Teaching Method Discussion, Demonstration -Response to teaching Verbalize understanding WC - Visit Discharge Discharge Condition Stable Stable Ambulatory Status Ambulatory Ambulatory Transportation Private Auto Private Auto Accompanied by SELF Medication Reconcilliation completed & No No provided to patient/care provider Clinical Summary of Care Provided Yes Yes Wound debrided: left 4th metatarsal plantar foot Laterality: Left Wound Grade/Stage: Stage 2 Type of Debridement: Excisional debridement Anesthesia Used: 4% Lidocaine Solution, 5% Lidocaine Gel Depth: Down to and including healthy tissue, in the subcutaneous layer Percentage of wound debrided: 100 Instrument Used: 3mm curette Tissue Removed: Yellow slough, devitalized tissue Severity: Fat Layer Exposed Amount of bleeding with debridement: Mild Bleeding Controlled with: Compression and gauze Patient tolerated procedure well - Additional Wound Wound debrided: left 1st metatarsal plantar foot Laterality: Left Wound Grade/Stage: Stage IV Anesthesia Used: 4% Lidocaine Solution, 5% Lidocaine Gel Depth: Down to and including healthy tissue, in the subcutaneous layer, to muscle, to bone Percentage of wound debrided: 100 Instrument Used: 3mm curette Tissue Removed: Yellow slough, devitalized tissue Severity: Fat Layer Exposed Amount of bleeding with debridement: Mild Bleeding Controlled with: Compression and gauze Patient tolerated procedure: Patient tolerated procedure well Assessment/Plan Active Problems Pressure ulcer of toe of left foot, stage 4 (Chronic) Hypertension (Chronic) Hyperparathyroidism (Chronic) Osteoporosis (Chronic) Osteoarthritis (Chronic) Rheumatoid arthritis (Chronic) Assessment: Stage 4 pressure ulcer left plantar foot 1st metatarsal head. Stage 2 pressure ulcer left plantar foot 4th metatarsal head. Rheumatoid arthritis. Chronic immunosuppression. Chronic prednisone use Plan: Kylah's ulcers were evaluated and debrided today at the wound center. There was no improvement in the 1st metatarsal but there has been improvement in the 4th metatarsal. Given the depth, bone exposure and undermining of her 1st metatarsal ulcer I suggest that she be evaluated for possible surgical debridement by one of the podiatrists at the wound healing center given the undermining and chronicity of her ulcer. We discussed that the wound may be closed at the time of surgery or may require wound vac treatment. She agrees with proceeding with consultation. The etiology of her ulcers appears to be from pressure at sites of bone spurs which may be related to her rheumatoid arthritis, chronic prednisone treatment may also have a role in the nonhealing of the ulcers. Xray did not show osteomyelitis. Offloading was again discussed and her insole of her sneaker, a black orthopedic shoe and a slipper were modified with padding to provide better offloading. She was advised to try to avoid standing and being on her feet for long periods and to elevate her feet as much as possible. Will reach out to her primary care doctor to obtain recent lab testing. Encouraged protein rich diet and protein supplements. Advised to call with questions or concerns. She will follow up with either Dr. Cavanaugh or Dr. Warner next week for surgical consultation. This note was generated with [employer] dictation software. It may contain incorrect words, spelling, and punctuation that were not noted in checking the note before signing.
== END 2020-06-07 23:59 ==
LOC: WC 09:45
PROVIDERS: PCP Family Medicine; Visit Provider Internal Medicine
DX: L89.894 Pressure ulcer of other site, stage 4 (principal); L89.892 Pressure ulcer of other site, stage 2; E21.3 Hyperparathyroidism, unspecified; I10 Essential (primary) hypertension; M81.0 Age-related osteoporosis without current pathological fracture; M19.90 Unspecified osteoarthritis, unspecified site; M05.79 Rheumatoid arthritis with rheumatoid factor of multiple sites without organ or systems involvement; Z79.52 Long term (current) use of systemic steroids; Z79.899 Other long term (current) drug therapy; Z82.49 Family history of ischemic heart disease and other diseases of the circulatory system; D84.821 Immunodeficiency due to drugs
CPT/HCPCS: 11042; 11044; 87070; 87075; 87205; 99213; G0463

== ENCOUNTER 2020-06-30 10:00 | Outpatient (RCR) | payer MEDICARE, SELFPAY ==
[2020-06-08 00:40] VITALS: BP 187/94; PULSE 91; RESP 18; TEMP 36.3
[2020-06-12 09:38] VITALS: BP 189/85; PULSE 105; RESP 18; TEMP 36.2; BMI 18.6
--- NOTE | 2020-06-12 12:19 | PCM.WC.PN ---
(1) Pressure ulcer of toe of left foot, stage 2 Status: Chronic Code(s): L89.892 - Pressure ulcer of other site, stage 2 (2) Pressure ulcer of left foot, stage 3 Status: Acute Code(s): L89.893 - Pressure ulcer of other site, stage 3 (3) Pressure ulcer of toe of left foot, stage 4 Status: Chronic Code(s): L89.894 - Pressure ulcer of other site, stage 4 (4) Rheumatoid arthritis Status: Chronic Qualifiers: Code(s): M06.9 - Rheumatoid arthritis, unspecified Type of Wound Date of Service: 06/12/20 Chief Complaint: Pressure ulcer plantar left great toe/metatarsal History of Wound: Kylah is a 75-year-old female who was referred here for treatment of an ulcer at the base of her great toe at her metatarsal head from Dr. Poe, her land survey technician. She has been receiving treatment to this area for the last [address] Poe has attempted to debride and close it surgically with sutures but it reopened and it hasn't healed. She has been seeing him weekly and has been using silvadene and Aquacel Ag to treat her ulcer with dressing changes once weekly and sometimes once in between if there is a lot of drainage. 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 Patient has had a recent culture on 05/11/20, positive for Staphylococcus lugendenosis, and is currently taking Clindmycin 300 mg TID. She has previously demonstrated an apparent allergy to collagen hydrogel. The patient has had vascular studies, without evidence of significant superficial vein incompetence in the left lower extremity. Her noninvasive lower extremity arterial study reveals normal ankle?brachial indices bilaterally. The patient is noted to be on prednisone and methotrexate. These are acknowledged to be possible inhibitors to wound healing. The patient is aware, and has previously made efforts to wean herself from these medications in collaboration with her activities assistant. She is set to start a new treatment that is an infusion with the hopes of being able to wean off of prednisone at the very least and possibly methotrexate. There are no recent labs for review. She also has not had any xrays of the toe/foot recently. Dr. Poe discussed radiology study to be ordered at her visit here after seeing her last week. She denies any systemic signs of infection such as fever, chills, erythema, increased drainage, nausea, vomiting. Progress of Wound: Kylah returns today for follow up of ulcers of her left plantar foot. There has been no improvement of her 1st metatarsal but improvement of the 4th metatarsal. She also notes a bruised/blistered area to the medial aspect of her first metatarsal of her left foot that she noticed yestered from wearing shoes taht she felt were rubbing. The area is painful but not open. She tolerated dressings of Aquacel Extra to her 1st metatarsal and Promogran to her 4th metatarsal and changed every other day. She and her declined home health assistance with dressings and her has done her dressing changes. She completed Clindamycin on 06/03/20. She had xray done on 05/29/20 which did not show any evidence of osteomyelitis. She denies fever, chills, increased drainage, erythyema or odor. - Physical Exam Vital Signs Temp Pulse Resp BP 97.2 F L 105 H 18 189/85 H 06/12/20 09:38 06/12/20 09:38 06/12/20 09:38 06/12/20 09:38 General: Alert, Oriented x3, Cooperative, No apparent distress HEENT: Atraumatic, Normocephalic Oral: Moist Mucosa Abdomen: Soft, Non Tender Extremities: No edema Skin: Ulcer/ Wound Wound Measurements and Assessment WC - Nurse 1 - General Ulcer Measurement Start: 06/12/20 09:34 Freq: Status: Active Protocol: Activity Type Activity Date Activity User E-Sign Co-Sign Detail Recorded Client Recorded Date Recorded By Document 06/12/20 09:38 DL [id number] 06/12/20 09:48 DL 06/12/20 09:38 Wound Center Nurse 1 [Ulcer Assessment] #3 LEFT 4TH METATARSAL FOOT -Current Size (cm) - Length 0.1 -Current Size (cm) - Width 0.1 -Current Size (cm) - Depth 0.1 -Total Square Cm 0.01 -Photo Taken No -Exudate Amt None Present -Wound Margin Thickened -Granulation Amt None Present (0 %) -Necrosis Amt Small (1-33%) -Necrotic Tissue Type Eschar -Structure Exposed N/A -Texture (Анна-wound Skin Appearance) Callus,Scarring -Moisture (Анна-wound Skin Appearance No Abnormality, ) Dry/Scaly -Temperature (Анна-wound Skin No Abnormality Appearance) (Pt Warm) -Tenderness on Palpation (Анна-wound No Skin Appearance) -Ulcer Cleansing Rinsed/ Irrigated with Saline -Foul Odor after Cleansing No -Anesthetic Used 4% Lidocaine Solution #2-LEFT 1ST METATARSAL FOOT -Current Size (cm) - Length 0.6 -Current Size (cm) - Width 0.6 -Current Size (cm) - Depth 0.5 -Total Square Cm 0.36 -Photo Taken No -Maximum Distance #2 (cm) 0.5 -Circular Undermining Yes -Exudate Amt Medium -Exudate Type Serosanguineous -Wound Margin Thickened & Rolled Under -Granulation Amt Medium (34-66%) -Granulation Quality [place] -Necrosis Amt Medium (34-66%) -Necrotic Tissue Type Adherent Slough -Structure Exposed N/A -Texture (Анна-wound Skin Appearance) Callus -Moisture (Анна-wound Skin Appearance Dry/Scaly ) -Color (Анна-wound Skin Appearance) No Abnormality -Temperature (Анна-wound Skin No Abnormality Appearance) (Pt Warm) -Tenderness on Palpation (Анна-wound No Skin Appearance) -Ulcer Cleansing Rinsed/ Irrigated with Saline -Foul Odor after Cleansing No -Anesthetic Used 4% Lidocaine Solution WC - Nurse 2 - General Ulcer CM Notes Start: 06/12/20 09:34 Freq: Status: Active Protocol: Activity Type Activity Date Activity User E-Sign Co-Sign Detail Recorded Client Recorded Date Recorded By Document 06/12/20 10:16 MW [id number] 06/12/20 10:42 MW 06/12/20 10:16 Wound Center Nurse 2 [Procedure/Treatment] #3 Left medial 1st metatarsal -Time 10:30 -Correct Patient Yes -Correct Side, Site, Position Yes -Correct Procedure Yes -Procedure Performed Yes -Type of Procedure Debridement -Clinical Debridement Subcutaneous -Post Debridement (cm) - Length 0.5 -Post Debridement (cm) - Width 1.5 -Post Debridement (cm) - Depth 0.3 -Total Square (Post) (cm) 0.75 -Area of Debridement (cm) - Length 0.5 -Area of Debridement (cm) - Width 1.5 -Total Square (Area) (cm) 0.75 -Tunneling No -Undermining/Tunneling No -Circular Undermining No -Wound/Ulcer Outcome Not Healed -Ulcer Cleansing Rinsed/ Irrigated with Saline -Foul Odor after Cleansing No -Bioengineered Tissue No -Bleeding Controlled with Pressure -Offloading No -Debridement - Subq, 20sq cm No #3 LEFT 4TH METATARSAL FOOT -Time 10:21 -Correct Patient Yes -Correct Side, Site, Position Yes -Correct Procedure Yes -Procedure Performed Yes -Type of Procedure Debridement -Clinical Debridement Subcutaneous -Tissue Removed Subcutaneous -Post Debridement (cm) - Length 0.1 -Post Debridement (cm) - Width 0.2 -Post Debridement (cm) - Depth 0.1 -Total Square (Post) (cm) 0.02 -Area of Debridement (cm) - Length 0.1 -Area of Debridement (cm) - Width 0.2 -Total Square (Area) (cm) 0.02 -Tunneling No -Undermining/Tunneling No -Circular Undermining No -Wound/Ulcer Outcome Not Healed -Ulcer Cleansing Rinsed/ Irrigated with Saline -Foul Odor after Cleansing No -Bioengineered Tissue No -Bleeding Controlled with Pressure -Offloading No -Treatment Response Procedure Tolerated Well -Debridement - Subq, 20sq cm Yes #2-LEFT 1ST METATARSAL FOOT -Time 10:21 -Correct Patient Yes -Correct Side, Site, Position Yes -Correct Procedure Yes -Procedure Performed Yes -Type of Procedure Debridement -Clinical Debridement Subcutaneous -Tissue Removed Subcutaneous -Post Debridement (cm) - Length 0.6 -Post Debridement (cm) - Width 0.9 -Post Debridement (cm) - Depth 0.4 -Total Square (Post) (cm) 0.54 -Area of Debridement (cm) - Length 0.6 -Area of Debridement (cm) - Width 0.9 -Total Square (Area) (cm) 0.54 -Tunneling No -Undermining/Tunneling No -Undermining/Tunneling Starts (O' 6 clock) -Undermining/Tunneling Ends (O'clock) 12 -Maximum Distance (cm) 0.6 -Circular Undermining No -Wound/Ulcer Outcome Not Healed -Ulcer Cleansing Rinsed/ Irrigated with Saline -Foul Odor after Cleansing No -Bioengineered Tissue No -Bleeding Controlled with Pressure -Offloading No -Debridement - Subq, 20sq cm No [See Physician Procedure note for Specifics] Pain Scale: 0-10 Numeric [Pain] -Is Patient Pain Free? Yes - Nurse 3 - General Ulcer D/C NN Start: 06/12/20 09:34 Freq: Status: Active Protocol: Activity Type Activity Date Activity User E-Sign Co-Sign Detail Recorded Client Recorded Date Recorded By Document 06/12/20 11:14 DL [id number] 06/12/20 11:18 DL 06/12/20 11:14 Wound Care Nurse 3 [Wound Dressing] #3 Left medial 1st metatarsal -Ulcer Cleansing Wound Cleanser -Foul Odor after Cleansing No -Other Dressing aqaucel ex -Primary Dressing Covered/Secured Dry Gauze & with Roll Gauze, Secured with Tape #3 LEFT 4TH METATARSAL FOOT -Ulcer Cleansing Wound Cleanser -Foul Odor after Cleansing No -Other Dressing promogran -Primary Dressing Covered/Secured Dry Gauze & with Roll Gauze, Secured with Tape #2-LEFT 1ST METATARSAL FOOT -Ulcer Cleansing Wound Cleanser -Foul Odor after Cleansing No -Other Dressing aquacel EX -Primary Dressing Covered/Secured Dry Gauze & with Roll Gauze, Secured with Tape [Post Procedure Tolerated] -Treatment Response Procedure Tolerated Well Pain Scale: 0-10 Numeric [Pain] -Is Patient Pain Free? Yes - Visit Discharge [Visit Discharge Information] -Discharge Condition Stable -Ambulatory Status Ambulatory -Transportation Private Auto -Accompanied by Psych/Mental Status: Normal Affect, Appropriate Debridement Note Post-Debridement Measurements/Treatment - Nurse 2 - General Ulcer CM Notes Start: 06/12/20 09:34 Freq: Status: Active Protocol: Activity Type Activity Date Activity User E-Sign Co-Sign Detail Recorded Client Recorded Date Recorded By Document 06/12/20 10:16 MW [id number] 06/12/20 10:42 MW 06/12/20 10:16 Wound Center Nurse 2 #3 Left medial 1st metatarsal -Time 10:30 -Correct Patient Yes -Correct Side, Site, Position Yes -Correct Procedure Yes -Procedure Performed Yes -Type of Procedure Debridement -Clinical Debridement Subcutaneous -Post Debridement (cm) - Length 0.5 -Post Debridement (cm) - Width 1.5 -Post Debridement (cm) - Depth 0.3 -Total Square (Post) (cm) 0.75 -Area of Debridement (cm) - Length 0.5 -Area of Debridement (cm) - Width 1.5 -Total Square (Area) (cm) 0.75 -Tunneling No -Undermining/Tunneling No -Circular Undermining No -Wound/Ulcer Outcome Not Healed -Ulcer Cleansing Rinsed/ Irrigated with Saline -Foul Odor after Cleansing No -Bioengineered Tissue No -Bleeding Controlled with Pressure -Offloading No -Debridement - Subq, 1st 20sq cm No #3 LEFT 4TH METATARSAL FOOT -Time 10:21 -Correct Patient Yes -Correct Side, Site, Position Yes -Correct Procedure Yes -Procedure Performed Yes -Type of Procedure Debridement -Clinical Debridement Subcutaneous -Tissue Removed Subcutaneous -Post Debridement (cm) - Length 0.1 -Post Debridement (cm) - Width 0.2 -Post Debridement (cm) - Depth 0.1 -Total Square (Post) (cm) 0.02 -Area of Debridement (cm) - Length 0.1 -Area of Debridement (cm) - Width 0.2 -Total Square (Area) (cm) 0.02 -Tunneling No -Undermining/Tunneling No -Circular Undermining No -Wound/Ulcer Outcome Not Healed -Ulcer Cleansing Rinsed/ Irrigated with Saline -Foul Odor after Cleansing No -Bioengineered Tissue No -Bleeding Controlled with Pressure -Offloading No -Treatment Response Procedure Tolerated Well -Debridement - Subq, 1st 20sq cm Yes #2-LEFT 1ST METATARSAL FOOT -Time 10:21 -Correct Patient Yes -Correct Side, Site, Position Yes -Correct Procedure Yes -Procedure Performed Yes -Type of Procedure Debridement -Clinical Debridement Subcutaneous -Tissue Removed Subcutaneous -Post Debridement (cm) - Length 0.6 -Post Debridement (cm) - Width 0.9 -Post Debridement (cm) - Depth 0.4 -Total Square (Post) (cm) 0.54 -Area of Debridement (cm) - Length 0.6 -Area of Debridement (cm) - Width 0.9 -Total Square (Area) (cm) 0.54 -Tunneling No -Undermining/Tunneling No -Undermining/Tunneling Starts (O'clock 6 ) -Undermining/Tunneling Ends (O'clock) 12 -Maximum Distance (cm) 0.6 -Circular Undermining No -Wound/Ulcer Outcome Not Healed -Ulcer Cleansing Rinsed/ Irrigated with Saline -Foul Odor after Cleansing No -Bioengineered Tissue No -Bleeding Controlled with Pressure -Offloading No -Debridement - Subq, 1st 20sq cm No Pain Scale: 0-10 Numeric Is Patient Pain Free? Yes - Nurse 3 - General Ulcer D/C NN Start: 06/12/20 09:34 Freq: Status: Active Protocol: Activity Type Activity Date Activity User E-Sign Co-Sign Detail Recorded Client Recorded Date Recorded By Document 06/12/20 11:14 DL [id number] 06/12/20 11:18 DL 06/12/20 11:14 Wound Care Nurse 3 #3 Left medial 1st metatarsal -Ulcer Cleansing Wound Cleanser -Foul Odor after Cleansing No -Other Dressing aqaucel ex -Primary Dressing Covered/Secured with Dry Gauze & Roll Gauze, Secured with Tape #3 LEFT 4TH METATARSAL FOOT -Ulcer Cleansing Wound Cleanser -Foul Odor after Cleansing No -Other Dressing promogran -Primary Dressing Covered/Secured with Dry Gauze & Roll Gauze, Secured with Tape #2-LEFT 1ST METATARSAL FOOT -Ulcer Cleansing Wound Cleanser -Foul Odor after Cleansing No -Other Dressing aquacel EX -Primary Dressing Covered/Secured with Dry Gauze & Roll Gauze, Secured with Tape Treatment Response Procedure Tolerated Well Pain Scale: 0-10 Numeric Is Patient Pain Free? Yes - Visit Discharge Discharge Condition Stable Ambulatory Status Ambulatory Transportation Private Auto Accompanied by Wound debrided: left 1st metatarsal plantar Laterality: Left Wound Grade/Stage: Stage IV Type of Debridement: Excisional debridement Anesthesia Used: 4% Lidocaine Solution, 5% Lidocaine Gel Depth: Down to and including healthy tissue, in the subcutaneous layer, to muscle, to bone Percentage of wound debrided: 100 Instrument Used: #15 blade, Forceps Tissue Removed: Yellow slough, devitalized tissue Amount of bleeding with debridement: Mild Bleeding Controlled with: Compression and gauze Patient tolerated procedure well - Additional Wound Wound debrided: left 4th metatarsal plantar Laterality: Left Wound Grade/Stage: Stage II Type of Debridement: Excisional debridement Anesthesia Used: 4% Lidocaine Solution, 5% Lidocaine Gel Depth: Down to and including healthy tissue, in the subcutaneous layer Percentage of wound debrided: 100 Instrument Used: #15 blade, Forceps Tissue Removed: Yellow slough, devitalized tissue Severity: Fat Layer Exposed Amount of bleeding with debridement: Mild Bleeding Controlled with: Compression and gauze Patient tolerated procedure: Patient tolerated procedure well - Additional Wound Wound debrided: left medial 1st metatarsal Laterality: Left Wound Grade/Stage: Stage III Type of Debridement: Excisional debridement Anesthesia Used: 4% Lidocaine Solution, 5% Lidocaine Gel Depth: Down to and including healthy tissue, in the subcutaneous layer Percentage of wound debrided: 100 Instrument Used: #15 blade, Forceps Tissue Removed: Yellow slough, devitalized tissue Severity: Fat Layer Exposed Amount of bleeding with debridement: Mild Bleeding Controlled with: Compression and gauze Patient tolerated procedure: Patient tolerated procedure well Assessment/Plan Active Problems Pressure ulcer of toe of left foot, stage 4 (Chronic) Pressure ulcer of toe of left foot, stage 2 (Chronic) Pressure ulcer of left foot, stage 3 (Acute) Rheumatoid arthritis (Chronic) Assessment: Stage 4 pressure ulcer left plantar foot 1st metatarsal head. Stage 2 pressure ulcer left plantar foot 4th metatarsal head. Stage 3 pressure ulcer left medial 1st metatarsal. Rheumatoid arthritis. Chronic immunosuppression. Chronic prednisone use Plan: Kylah's ulcers were evaluated and debrided today at the wound center. There was no improvement in the 1st metatarsal but there has been improvement in the 4th metatarsal. The blistered area on the medial aspect of her left great toe was unroofed and expressed purulent drainage mixed with blood and was deep into the subcutaneous tissue but no visible tendon or bone exposed. Wound culture taken of the new blistered area that was unroofed. The plantar 1st metatarsal ulcer appears to have more exposed bone as well this week compared to last week but still does not show clinical evidence of infection. Given the depth, bone exposure and undermining of her 1st metatarsal ulcer I suggest that she be evaluated for possible surgical debridement by one of the podiatrists at the wound healing center given the undermining and chronicity of her ulcer. We discussed that the wound may be closed at the time of surgery or may require wound vac treatment. She agrees with proceeding with consultation. The etiology of her ulcers appears to be from pressure at sites of bone spurs which may be related to her rheumatoid arthritis, chronic prednisone treatment may also have a role in the nonhealing of the ulcers. Xray 05/29/2020 did not show osteomyelitis. Offloading was again discussed and her insole of her sneaker, a black orthopedic shoe and a slipper were modified with padding to provide better offloading. She was advised to try to avoid standing and being on her feet for long periods and to elevate her feet as much as possible. Will reach out to her primary care doctor to obtain recent lab testing. Encouraged protein rich diet and protein supplements. Advised to call with questions or concerns. She will follow up with either Dr. Cavanaugh next week for surgical consultation. This note was generated with [employer] dictation software. It may contain incorrect words, spelling, and punctuation that were not noted in checking the note before signing.
[2020-06-16 09:49] VITALS: BP 172/92; PULSE 112; RESP 18; TEMP 36.6; BMI 18.6
--- NOTE | 2020-06-16 12:30 | PCM.WC.HP ---
(1) Cellulitis of foot, left Status: Acute Code(s): L03.116 - Cellulitis of left lower limb (2) Pressure ulcer of left foot, stage 3 Status: Acute Code(s): L89.893 - Pressure ulcer of other site, stage 3 (3) Pressure ulcer of toe of left foot, stage 2 Status: Chronic Code(s): L89.892 - Pressure ulcer of other site, stage 2 (4) Rheumatoid arthritis Status: Chronic Qualifiers: Code(s): M06.9 - Rheumatoid arthritis, unspecified History of Present Illness Date of Service: 06/17/20 Chief Complaint: Pressure ulcer plantar left great toe/metatarsal History of Wound: Kylah is a 75-year-old female who was referred here for treatment of an ulcer at the base of her great toe at her metatarsal head from Dr. 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 She has been receiving treatment to this area for the last [address] Poe has attempted to debride and close it surgically with sutures but it reopened and it hasn't healed. She has been seeing him weekly and has been using silvadene and Aquacel Ag to treat her ulcer with dressing changes once weekly and sometimes once in between if there is a lot of drainage. 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 Patient has had a recent culture on 05/11/20, positive for Staphylococcus lugendenosis. Another culture was taken to 521 which demonstrated staph epididymis. Patient was placed on Bactrim at that time as cultures finalizes noted that it was resistant to Bactrim patient was switched to doxycycline. She has previously demonstrated an apparent allergy to collagen hydrogel. The patient has had vascular studies, without evidence of significant superficial vein incompetence in the left lower extremity in 2017. Her noninvasive lower extremity arterial study reveals normal ankle?brachial indices bilaterally in 2017. New studies were ordered. The patient is noted to be on prednisone and methotrexate for her rheumatoid arthritis but patient relates that she has stopped her methotrexate the last few weeks to see if that would help the healing process. These are acknowledged to be possible inhibitors to wound healing. She denies any systemic signs of infection such as fever, chills, erythema, increased drainage, nausea, vomiting. Care was transferred to or to assess if any possible surgical intervention may be necessary. Past Medical History Past Medical History: Chronic Problems Pressure ulcer of toe of left foot, stage 4 (Chronic) Pressure ulcer of toe of left foot, stage 2 (Chronic) Traumatic open wound of left lower leg with delayed healing (Chronic) Hypertension (Chronic) Hyperparathyroidism (Chronic) Osteoporosis (Chronic) Osteoarthritis (Chronic) Rheumatoid arthritis (Chronic) Surgical History: no surgical history, - - Left foot surgery I&D's for ulcerations Allergies/Adverse Reactions: Allergies No Known Allergies Allergy (Verified 05/29/20 10:46) Home Medications: Ambulatory Orders Medication Instructions Recorded Benazepril HCl [Lotensin] 20 mg PO DAILY 12/21/16 Cyclosporine [Restasis] 2 drop OP 12/21/16 Denosumab [Prolia] 60 mg SQ 12/21/16 Estrogens, Conjugated [Premarin] 1 dose VAGINAL DAILY 12/21/16 Folic Acid 1 mg PO DAILY@0800 12/21/16 Hydroxychloroquine [Plaquenil] 200 mg PO DAILYCM 12/21/16 Methotrexate Sodium/Pf 25 mg IJ 12/21/16 [Methotrexate 25 mg/ml Vial] predniSONE tablet 12 mg PO DAILY 12/21/16 traMADol [Ultram (G)] 50 mg PO Q4H PRN PRN 12/21/16 Levothyroxine [Synthroid] 75 mcg PO DAILY 06/29/17 Doxycycline 100 mg PO BID #20 cap 06/16/20 - Family History Maternal - - The patient's father at age of 59 with a history of heart disease. Patient's mother at the age of 75 with a history of scleroderma. Smoking Status: Never smoker Tobacco Use: Non-smoker Review of Systems Constitutional: Denies: Chills, Fever Cardiovascular: Denies: Chest Pain, Edema Respiratory: Denies: Shortness of Breath Gastrointestinal: Denies: Nausea, Vomiting Musculoskeletal: Reports: Foot Pain, Joint stiffness, Joint swelling, Joint Tenderness Skin: Reports: Wounds - Left foot Neurological: Denies: Numbness, Tingling Subjective: Patient seen and examined. Patient denies any new pedal complaints. Patient denies any nausea, fever, chills, chest pain, shortness of breath, cough, streaking, purulence, vomiting. - Physical Exam Vital Signs Temp Pulse Resp BP 97.9 F 112 H 18 172/92 H 06/16/20 09:49 06/16/20 09:49 06/16/20 09:49 06/16/20 09:49 General: Alert, Oriented x3 HEENT: Atraumatic Extremities: No clubbing, No cyanosis, No edema, Capillary Refill Less than 3 Seconds, No Calf Tenderness, Peripheral Pulses Normal - Digits are cool to the touch, Tenderness - Left foot metatarsal heads at ulcerations as well Skin: Ulcer/ Wound - Left foot subfirst metatarsal at tibial sesamoid, medial hallux, plantar fourth metatarsal head. No malodor, mild erythema, no purulence, streaking. Skin is atrophic and hairless. Granular base with serosanguineous drainage after debridement. Subfirst MPJ ulceration probes to bone., - - Medial hallux ulceration noted to have mild erythema and edema patient reports this has improved some Wound Measurements and Assessment WC - Nurse 1 - General Ulcer Measurement Start: 06/12/20 09:34 Freq: Status: Active Protocol: Activity Type Activity Date Activity User E-Sign Co-Sign Detail Recorded Client Recorded Date Recorded By Document 06/16/20 09:49 DL [id number] 06/16/20 10:04 DL 06/16/20 09:49 Wound Center Nurse 1 [Ulcer Assessment] #4 left medial 1st metatarsal -Current Size (cm) - Length 0.3 -Current Size (cm) - Width 1.2 -Current Size (cm) - Depth 0.1 -Total Square Cm 0.36 -Photo Taken No -Exudate Amt Small -Exudate Type Yellow/Green -Wound Margin Distinct, Outline Attached -Granulation Amt Small (1-33%) -Granulation Quality Red -Necrosis Amt Small (1-33%) -Necrotic Tissue Type Adherent Slough -Structure Exposed N/A -Texture (Анна-wound Skin Appearance) Scarring -Moisture (Анна-wound Skin Appearance No Abnormality ) -Color (Анна-wound Skin Appearance) No Abnormality -Temperature (Анна-wound Skin No Abnormality Appearance) (Pt Warm) -Tenderness on Palpation (Анна-wound No Skin Appearance) -Ulcer Cleansing Wound Cleanser -Foul Odor after Cleansing No -Anesthetic Used 4% Lidocaine Solution #3 LEFT 4TH METATARSAL FOOT -Current Size (cm) - Length 0.2 -Current Size (cm) - Width 0.2 -Current Size (cm) - Depth 0.1 -Total Square Cm 0.04 -Photo Taken No -Exudate Amt None Present -Wound Margin Thickened -Granulation Amt None Present (0 %) -Necrosis Amt Large (67-100%) -Necrotic Tissue Type Eschar -Structure Exposed N/A -Texture (Анна-wound Skin Appearance) Callus -Moisture (Анна-wound Skin Appearance Dry/Scaly ) -Color (Анна-wound Skin Appearance) No Abnormality -Temperature (Анна-wound Skin No Abnormality Appearance) (Pt Warm) -Tenderness on Palpation (Анна-wound No Skin Appearance) -Ulcer Cleansing Wound Cleanser -Foul Odor after Cleansing No -Anesthetic Used 4% Lidocaine Solution #2-LEFT 1ST METATARSAL FOOT -Current Size (cm) - Length 0.6 -Current Size (cm) - Width 0.5 -Current Size (cm) - Depth 0.4 -Total Square Cm 0.30 -Photo Taken No -Exudate Amt Medium -Exudate Type Serosanguineous -Wound Margin Thickened -Granulation Amt Large (67-100%) -Granulation Quality Red -Necrosis Amt Small (1-33%) -Necrotic Tissue Type Adherent Slough -Structure Exposed Bone -Texture (Анна-wound Skin Appearance) Scarring -Moisture (Анна-wound Skin Appearance Maceration ) -Color (Анна-wound Skin Appearance) No Abnormality -Temperature (Анна-wound Skin No Abnormality Appearance) (Pt Warm) -Tenderness on Palpation (Анна-wound No Skin Appearance) -Ulcer Cleansing Wound Cleanser -Foul Odor after Cleansing No -Anesthetic Used 4% Lidocaine Solution WC - Nurse 2 - General Ulcer CM Notes Start: 06/12/20 09:34 Freq: Status: Active Protocol: Activity Type Activity Date Activity User E-Sign Co-Sign Detail Recorded Client Recorded Date Recorded By Document 06/16/20 10:28 [id number] 06/16/20 10:44 REJI 06/16/20 10:28 Wound Center Nurse 2 [Procedure/Treatment] #4 left medial 1st metatarsal -Time 10:38 -Correct Patient Yes -Correct Side, Site, Position Yes -Correct Procedure Yes -Procedure Performed Yes -Type of Procedure Debridement -Clinical Debridement Subcutaneous -Tissue Removed Subcutaneous -Post Debridement (cm) - Length 0.8 -Post Debridement (cm) - Width 1 -Post Debridement (cm) - Depth 0.6 -Total Square (Post) (cm) 0.8 -Area of Debridement (cm) - Length 0.8 -Area of Debridement (cm) - Width 1 -Total Square (Area) (cm) 0.8 -Tunneling No -Undermining/Tunneling No -Circular Undermining No -Wound/Ulcer Outcome Not Healed -Ulcer Cleansing Rinsed/ Irrigated with Saline -Foul Odor after Cleansing No -Bioengineered Tissue No -Bleeding Controlled with Pressure -Offloading Yes -Type of Offloading Surgical Shoe -Treatment Response Procedure Tolerated Well -Debridement - Subq, 1st 20sq cm Yes #3 LEFT 4TH METATARSAL FOOT -Time 10:38 -Correct Patient Yes -Correct Side, Site, Position Yes -Correct Procedure Yes -Procedure Performed Yes -Type of Procedure Debridement -Clinical Debridement Subcutaneous -Tissue Removed Subcutaneous -Post Debridement (cm) - Length 0.4 -Post Debridement (cm) - Width 0.3 -Post Debridement (cm) - Depth 0.2 -Total Square (Post) (cm) 0.12 -Area of Debridement (cm) - Length 0.4 -Area of Debridement (cm) - Width 0.3 -Total Square (Area) (cm) 0.12 -Tunneling No -Undermining/Tunneling No -Circular Undermining No -Wound/Ulcer Outcome Not Healed -Ulcer Cleansing Rinsed/ Irrigated with Saline -Foul Odor after Cleansing No -Bioengineered Tissue No -Bleeding Controlled with Pressure -Offloading No -Type of Offloading Surgical Shoe -Treatment Response Procedure Tolerated Well -Debridement - Subq, 1st 20sq cm Yes #2-LEFT 1ST METATARSAL FOOT -Time 10:40 -Correct Patient Yes -Correct Side, Site, Position Yes -Correct Procedure Yes -Procedure Performed Yes -Type of Procedure Debridement -Clinical Debridement Subcutaneous -Tissue Removed Subcutaneous -Post Debridement (cm) - Length 0.2 -Post Debridement (cm) - Width 0.7 -Post Debridement (cm) - Depth 0.2 -Total Square (Post) (cm) 0.14 -Area of Debridement (cm) - Length 0.2 -Area of Debridement (cm) - Width 0.7 -Total Square (Area) (cm) 0.14 -Tunneling No -Undermining/Tunneling No -Circular Undermining No -Wound/Ulcer Outcome Not Healed -Ulcer Cleansing Rinsed/ Irrigated with Saline -Foul Odor after Cleansing No -Bioengineered Tissue No -Bleeding Controlled with Pressure -Offloading Yes -Type of Offloading Surgical Shoe -Treatment Response Procedure Tolerated Well -Debridement - Subq, 1st 20sq cm No [See Physician Procedure note for Specifics] Pain Scale: 0-10 Numeric [Pain] -Is Patient Pain Free? Yes - Nurse 3 - General Ulcer D/C NN Start: 06/12/20 09:34 Freq: Status: Active Protocol: Activity Type Activity Date Activity User E-Sign Co-Sign Detail Recorded Client Recorded Date Recorded By Document 06/16/20 10:55 DL [id number] 06/16/20 10:57 DL 06/16/20 10:55 Wound Care Nurse 3 [Wound Dressing] #4 left medial 1st metatarsal -Ulcer Cleansing Rinsed/ Irrigated with Saline -Foul Odor after Cleansing No -Primary Dressing Applied Aquacel Extra -Primary Dressing Covered/Secured Dry Gauze & with Roll Gauze, Secured with Tape -Aquacel Extra 1 #3 LEFT 4TH METATARSAL FOOT -Ulcer Cleansing Rinsed/ Irrigated with Saline -Foul Odor after Cleansing No -Primary Dressing Applied Promogran -Primary Dressing Covered/Secured Dry Gauze & with Roll Gauze, Secured with Tape -Promogran 1 #2-LEFT 1ST METATARSAL FOOT -Ulcer Cleansing Rinsed/ Irrigated with Saline -Foul Odor after Cleansing No -Primary Dressing Applied Promogran -Primary Dressing Covered/Secured Dry Gauze & with Roll Gauze, Secured with Tape -Promogran 0 [Post Procedure Tolerated] -Treatment Response Procedure Tolerated Well Pain Scale: 0-10 Numeric [Pain] -Is Patient Pain Free? Yes - Visit Discharge [Visit Discharge Information] -Discharge Condition Stable -Ambulatory Status Ambulatory -Transportation Private Auto -Accompanied by Musculoskeletal: Tenderness - Ulceration sites, - - Atrophic plantar fat pad with easily palpable metatarsal heads likely secondary to rheumatoid arthritis Neurological: Sensory exam intact to light touch and pain Psych/Mental Status: Normal Affect, Appropriate Debridement Note Post-Debridement Measurements/Treatment WC - Nurse 2 - General Ulcer CM Notes Start: 06/12/20 09:34 Freq: Status: Active Protocol: Activity Type Activity Date Activity User E-Sign Co-Sign Detail Recorded Client Recorded Date Recorded By Document 06/12/20 10:16 MW [id number] 06/12/20 10:42 MW Document 06/16/20 10:28 JF [id number] 06/16/20 10:44 JF 06/12/20 06/16/20 10:16 10:28 Wound Center Nurse 2 #4 left medial 1st metatarsal -Time 10:30 10:38 -Correct Patient Yes Yes -Correct Side, Site, Position Yes Yes -Correct Procedure Yes Yes -Procedure Performed Yes Yes -Type of Procedure Debridement Debridement -Clinical Debridement Subcutaneous Subcutaneous -Tissue Removed Subcutaneous -Post Debridement (cm) - Length 0.5 0.8 -Post Debridement (cm) - Width 1.5 1 -Post Debridement (cm) - Depth 0.3 0.6 -Total Square (Post) (cm) 0.75 0.8 -Area of Debridement (cm) - Length 0.5 0.8 -Area of Debridement (cm) - Width 1.5 1 -Total Square (Area) (cm) 0.75 0.8 -Tunneling No No -Undermining/Tunneling No No -Circular Undermining No No -Wound/Ulcer Outcome Not Healed Not Healed -Ulcer Cleansing Rinsed/ Rinsed/ Irrigated with Irrigated with Saline Saline -Foul Odor after Cleansing No No -Bioengineered Tissue No No -Bleeding Controlled with Pressure Pressure -Offloading No Yes -Type of Offloading Surgical Shoe -Treatment Response Procedure Tolerated Well -Debridement - Subq, 1st 20sq cm No Yes #3 LEFT 4TH METATARSAL FOOT -Time 10:21 10:38 -Correct Patient Yes Yes -Correct Side, Site, Position Yes Yes -Correct Procedure Yes Yes -Procedure Performed Yes Yes -Type of Procedure Debridement Debridement -Clinical Debridement Subcutaneous Subcutaneous -Tissue Removed Subcutaneous Subcutaneous -Post Debridement (cm) - Length 0.1 0.4 -Post Debridement (cm) - Width 0.2 0.3 -Post Debridement (cm) - Depth 0.1 0.2 -Total Square (Post) (cm) 0.02 0.12 -Area of Debridement (cm) - Length 0.1 0.4 -Area of Debridement (cm) - Width 0.2 0.3 -Total Square (Area) (cm) 0.02 0.12 -Tunneling No No -Undermining/Tunneling No No -Circular Undermining No No -Wound/Ulcer Outcome Not Healed Not Healed -Ulcer Cleansing Rinsed/ Rinsed/ Irrigated with Irrigated with Saline Saline -Foul Odor after Cleansing No No -Bioengineered Tissue No No -Bleeding Controlled with Pressure Pressure -Offloading No No -Type of Offloading Surgical Shoe -Treatment Response Procedure Procedure Tolerated Well Tolerated Well -Debridement - Subq, 1st 20sq cm Yes Yes #2-LEFT 1ST METATARSAL FOOT -Time 10: 10:40 -Correct Patient Yes Yes -Correct Side, Site, Position Yes Yes -Correct Procedure Yes Yes -Procedure Performed Yes Yes -Type of Procedure Debridement Debridement -Clinical Debridement Subcutaneous Subcutaneous -Tissue Removed Subcutaneous Subcutaneous -Post Debridement (cm) - Length 0.6 0.2 -Post Debridement (cm) - Width 0.9 0.7 -Post Debridement (cm) - Depth 0.4 0.2 -Total Square (Post) (cm) 0.54 0.14 -Area of Debridement (cm) - Length 0.6 0.2 -Area of Debridement (cm) - Width 0.9 0.7 -Total Square (Area) (cm) 0.54 0.14 -Tunneling No No -Undermining/Tunneling No No -Undermining/Tunneling Starts (O'clock 6 ) -Undermining/Tunneling Ends (O'clock) 12 -Maximum Distance (cm) 0.6 -Circular Undermining No No -Wound/Ulcer Outcome Not Healed Not Healed -Ulcer Cleansing Rinsed/ Rinsed/ Irrigated with Irrigated with Saline Saline -Foul Odor after Cleansing No No -Bioengineered Tissue No No -Bleeding Controlled with Pressure Pressure -Offloading No Yes -Type of Offloading Surgical Shoe -Treatment Response Procedure Tolerated Well -Debridement - Subq, 1st 20sq cm No No Pain Scale: 0-10 Numeric Is Patient Pain Free? Yes Yes WC - Nurse 3 - General Ulcer D/C NN Start: 06/12/20 09:34 Freq: Status: Active Protocol: Activity Type Activity Date Activity User E-Sign Co-Sign Detail Recorded Client Recorded Date Recorded By Document 06/12/20 11:14 DL [id number] 06/12/20 11:18 DL Document 06/16/20 10:55 DL [id number] 06/16/20 10:57 DL 06/12/20 06/16/20 11:14 10:55 Wound Care Nurse 3 #4 left medial 1st metatarsal -Ulcer Cleansing Wound Cleanser Rinsed/ Irrigated with Saline -Foul Odor after Cleansing No No -Primary Dressing Applied Aquacel Extra -Other Dressing aqaucel ex -Primary Dressing Covered/Secured with Dry Gauze & Dry Gauze & Roll Gauze, Roll Gauze, Secured with Secured with Tape Tape -Aquacel Extra 1 #3 LEFT 4TH METATARSAL FOOT -Ulcer Cleansing Wound Cleanser Rinsed/ Irrigated with Saline -Foul Odor after Cleansing No No -Primary Dressing Applied Promogran -Other Dressing promogran -Primary Dressing Covered/Secured with Dry Gauze & Dry Gauze & Roll Gauze, Roll Gauze, Secured with Secured with Tape Tape -Promogran 1 #2-LEFT 1ST METATARSAL FOOT -Ulcer Cleansing Wound Cleanser Rinsed/ Irrigated with Saline -Foul Odor after Cleansing No No -Primary Dressing Applied Promogran -Other Dressing aquacel EX -Primary Dressing Covered/Secured with Dry Gauze & Dry Gauze & Roll Gauze, Roll Gauze, Secured with Secured with Tape Tape -Promogran 0 Treatment Response Procedure Procedure Tolerated Well Tolerated Well Pain Scale: 0-10 Numeric Is Patient Pain Free? Yes Yes WC - Visit Discharge Discharge Condition Stable Stable Ambulatory Status Ambulatory Ambulatory Transportation Private Auto Private Auto Accompanied by Wound debrided: Plantar first MPJ Laterality: Left Type of Debridement: Excisional debridement Anesthesia Used: 4% Lidocaine Solution Depth: in the subcutaneous layer Percentage of wound debrided: 100 Instrument Used: #15 blade Tissue Removed: Tissue removed Severity: Fat Layer Exposed - Bone visualized Amount of bleeding with debridement: Mild Bleeding Controlled with: Pressure Patient tolerated procedure well - Additional Wound Wound debrided: Medial hallux Laterality: Left Type of Debridement: Excisional debridement Anesthesia Used: 4% Lidocaine Solution Depth: in the subcutaneous layer Percentage of wound debrided: 100 Instrument Used: #15 blade Tissue Removed: Tissue removed includes fibrous, devitalized, biofilm, and slough tissue Severity: Fat Layer Exposed Amount of bleeding with debridement: Mild Bleeding Controlled with: Pressure Patient tolerated procedure: Patient tolerated procedure well - Additional Wound Wound debrided: Subfourth metatarsal head Laterality: Left Type of Debridement: Excisional debridement Anesthesia Used: 4% Lidocaine Solution Depth: in the subcutaneous layer Percentage of wound debrided: 100 Instrument Used: #15 blade Tissue Removed: Tissue removed includes fibrous, devitalized, biofilm, and slough tissue Amount of bleeding with debridement: Mild Bleeding Controlled with: Pressure Patient tolerated procedure: Patient tolerated procedure well Assessment/Plan Active Problems Pressure ulcer of toe of left foot, stage 4 (Chronic) Pressure ulcer of toe of left foot, stage 2 (Chronic) Pressure ulcer of left foot, stage 3 (Acute) Cellulitis of foot, left (Acute) Rheumatoid arthritis (Chronic) Assessment: Stage 4 pressure ulcer left plantar foot 1st metatarsal head. Stage 2 pressure ulcer left plantar foot 4th metatarsal head. Stage 3 pressure ulcer left medial 1st metatarsal. Rheumatoid arthritis. Chronic immunosuppression. Chronic prednisone use Plan: Patient seen and examined. Kylah's ulcers were evaluated and debrided today at the wound center after verbal consent obtained. Ulceration to medial hallux noted to have surrounding erythema and edema. Reviewed cultures obtained last visit. Switch patient to doxycycline prescription was sent to pharmacy. Plantar first metatarsal wound has easily bone exposed probably tibial sesamoid. Would like to work-up further to see if there is any bone infection. MRI was ordered. Discussed that if bone is noted to be infected that surgical intervention with removal of the infected bone may be necessary versus long-term course of IV antibiotics. We will revisit topic when results are obtained. Discussed that her toes are on the cool side and she has not had any blood flow studies since 2017. Discussed getting repeat studies to assess current blood flow situation. Patient was amendable. Arterial studies ordered. Discussed that she has poor blood flow this could be contributing to her lack of healing. The etiology of her ulcers appears to be from pressure at sites of bone spurs which may be related to her rheumatoid arthritis, chronic prednisone treatment may also have a role in the nonhealing of the ulcers. It is noted the patient has atrophy of her plantar fat pad contributing to this. Xray 05/29/2020 did not show osteomyelitis. Offloading was discussed, patient relates that she has a surgical shoe with forefoot offloaded. Discussed bringing it into her next visit to modify any further if needed. Recommend patient wear surgical shoe at this time. She was advised to try to avoid standing and being on her feet for long periods and to elevate her feet as much as possible. Encouraged protein rich diet and protein supplements. Advised to call with questions or concerns. Follow-up in 1 week. This note was generated with [employer] software. It may contain incorrect words, spelling, and punctuation that were not noted in checking the note before signing.
--- NOTE | 2020-06-25 16:00 | MRI_ITS ---
STUDY: MRI LEFT MIDFOOT REASON FOR EXAM: Female, 75 years old. LEFT PLANTAR ULCERS, dime sized wounds on ball of foot, I and amp;D 06/17/19 TECHNIQUE: Standardized fat and water weighted pulse sequences were obtained in all 3 orthogonal planes. COMPARISON: None. FINDINGS: No acute left foot fracture. Advanced degenerative changes at the metatarsal phalangeal joints with dislocations at the first through fifth digits. Acute on chronic osteomyelitis at the first metatarsal head (sagittal image 5 series 7) with bone marrow replacement. Plantar ulcerations most pronounced at the first metatarsophalangeal joint without organized collection given noncontrast technique. Normal talonavicular joint. Normal calcaneocuboid joint. Normal navicular cuneiform joints. Normal tarsal metatarsal joints. Joint space narrowing at the first interphalangeal joint. Joint space narrowing at the second through fifth proximal and distal interphalangeal joints. Diffuse muscle atrophy. Flexor and extensor tendons grossly intact with displacement secondary to dislocations. Lisfranc ligament intact. Talonavicular joint effusion. Small volume first metatarsal-phalangeal joint effusion. 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
--- NOTE | 2020-06-30 08:54 | ART_ITS ---
Reason For Study: Ulcers Procedure A bilateral lower extremity continuous wave Doppler with analog waveform analysis,segmental pressures,and ankle brachial indexes without exercise. Left Segmental Pressures Left brachial= 166mmHg. Left posterior tibial artery = >254mmHg. Left dorsalis pedis artery = 211mmHg. Left digit = 62 mmHg. The left dorsalis pedis waveforms are biphasic. The left posterior tibial artery waveforms are biphasic. Right Segmental Pressures Right brachial= 163mmHg. Right posterior tibial artery = >254mmHg. Right dorsalis pedis artery = >254mmHg. Right digit = 66 mmHg. The right dorsalis pedis waveforms are biphasic. The right posterior tibial artery waveforms are triphasic. Indices The right ankle brachial index by the dorsalis pedis is noncompressible. The right ankle brachial index by the posterior tibial artery is noncompressible. The right digital-brachial index is 0.40. The left ankle brachial index by the dorsalis pedis is 1.27. The left ankle brachial index by the posterior tibial artery is noncompressible. The left digital-brachial index is 0.37. Interpretation Summary Triphasic and biphasic Doppler waveforms are noted at ankle level on the right. Biphasic Doppler waveforms are noted at ankle level on the left. Pulse-volume recording waveform amplitudes appear diminished at digital level bilaterally, but satisfactory at all other levels bilaterally. The resting right ankle-brachial index could not be determined due to the non-compressibility of the vasculature. The resting left ankle-brachial index is normal. Digital-brachial indices are moderately diminished bilaterally. There is evidence of arterial calcification at ankle level on the right. Arterial flow appears to be relatively normal at ankle level bilaterally. There is evidence of moderate, distal, small-vessel arterial occlusive disease at digital level bilaterally. Ordering Physician: Leyda Cavanaugh Referring Physician: Phong Meza MD Performed By: Yolande Melara RVT
[2020-06-30 10:04] VITALS: BP 188/69; PULSE 94; RESP 18; TEMP 36.6; BMI 18.6
--- NOTE | 2020-06-30 23:40 | PCM.WC.PN ---
(1) Cellulitis of foot, left Status: Resolved Code(s): L03.116 - Cellulitis of left lower limb (2) Pressure ulcer of left foot, stage 3 Status: Chronic Code(s): L89.893 - Pressure ulcer of other site, stage 3 (3) Rheumatoid arthritis Status: Chronic Qualifiers: Code(s): M06.9 - Rheumatoid arthritis, unspecified (4) Osteomyelitis Status: Acute Qualifiers: Osteomyelitis type: other chronic hematogenous Osteomyelitis location: foot Laterality: left Qualified Code(s): M86.572 - Other chronic hematogenous osteomyelitis, left ankle and foot Code(s): M86.9 - Osteomyelitis, unspecified (5) Pressure ulcer of left foot, stage 4 Status: Acute Code(s): L89.894 - Pressure ulcer of other site, stage 4 Type of Wound Date of Service: 07/02/20 Chief Complaint: Pressure ulcer plantar left great toe/metatarsal History of Wound: Kylah is a 75-year-old female who was referred here for treatment of an ulcer at the base of her great toe at her metatarsal head from Dr. Poe, her director of accreditation. She has been receiving treatment to this area for the last [address] oPe has attempted to debride and close it surgically with sutures but it reopened and it hasn't healed. She has been seeing him weekly and has been using silvadene and Aquacel Ag to treat her ulcer with dressing changes once weekly and sometimes once in between if there is a lot of drainage. 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 Patient has had a recent culture on 05/11/20, positive for Staphylococcus lugendenosis. Another culture was taken which demonstrated staph epididymis. Patient was placed on Bactrim at that time as cultures finalizes noted that it was resistant to Bactrim patient was switched to doxycycline. She has previously demonstrated an apparent allergy to collagen hydrogel. The patient has had vascular studies, without evidence of significant superficial vein incompetence in the left lower extremity in 2017. Her noninvasive lower extremity arterial study reveals normal ankle?brachial indices bilaterally in 2017. New studies showed moderate distal small vessel disease bilaterally at the digits with some non compressible vessels. She had MRI on 06/25/20 which showed osteomyelitis to 1st metatarsal. The patient is noted to be on prednisone and methotrexate for her rheumatoid arthritis but patient relates that she has stopped her methotrexate the last few weeks to see if that would help the healing process. She states she can tell the difference and wants to know if she can go back on it. These are acknowledged to be possible inhibitors to wound healing. She denies any systemic signs of infection such as fever, chills, erythema, increased drainage, nausea, vomiting. Progress of Wound: wounds are stable Subjective: Patient seen and examined resting comfortably. Patient denies any new pedal complaints. Patient denies any nausea, fever, chills, chest pain, shortness of breath, cough, streaking, purulence, vomiting - Physical Exam Vital Signs Temp Pulse Resp BP 97.8 F 94 18 188/69 H 06/30/20 10:04 06/30/20 10:04 06/30/20 10:04 06/30/20 10:04 General: Alert, Oriented x3 HEENT: Atraumatic Extremities: No clubbing, No cyanosis, No edema, Capillary Refill Less than 3 Seconds, No Calf Tenderness, Diminished Peripheral Pulses Skin: Ulcer/ Wound - left foot medial hallux and sub 4th met head. No malodor, erythema, purulence, probing to bone, streaking, or other signs of infection. Skin is atrophic and hairless. Granular base with serosanguineous drainage after debridement. Sub 4 noted to have callus build up, - - sub 1st metatarsal head. No malodor, erythema, purulence, streaking, or other signs of infection. Probes to bone, bone is noted to be hard. Skin is atrophic and hairless. Granular base with serosanguineous drainage after debridement Wound Measurements and Assessment WC - Nurse 1 - General Ulcer Measurement Start: 06/12/20 09:34 Freq: Status: Active Protocol: Activity Type Activity Date Activity User E-Sign Co-Sign Detail Recorded Client Recorded Date Recorded By Document 06/30/20 10:04 TARI [id number] 06/30/20 10:22 DL 06/30/20 10:04 Wound Center Nurse 1 [Ulcer Assessment] #4 left medial 1st metatarsal -Current Size (cm) - Length 1.1 -Current Size (cm) - Width 0.5 -Current Size (cm) - Depth 0.2 -Total Square Cm 0.55 -Photo Taken No -Exudate Amt Small -Exudate Type Sanguineous -Wound Margin Distinct, Outline Attached -Granulation Amt Large (67-100%) -Granulation Quality Red -Necrosis Amt None Present (0 %) -Structure Exposed N/A -Texture (Анна-wound Skin Appearance) Localized Edema ,Scarring -Moisture (Анна-wound Skin Appearance No Abnormality ) -Color (Анна-wound Skin Appearance) Mottled -Temperature (Анна-wound Skin No Abnormality Appearance) (Pt Warm) -Tenderness on Palpation (Анна-wound Yes Skin Appearance) -Ulcer Cleansing Wound Cleanser -Foul Odor after Cleansing No -Anesthetic Used 4% Lidocaine Solution #3 LEFT 4TH METATARSAL FOOT -Current Size (cm) - Length 0.3 -Current Size (cm) - Width 0.3 -Current Size (cm) - Depth 0.1 -Total Square Cm 0.09 -Exudate Amt None Present -Wound Margin Thickened -Granulation Amt None Present (0 %) -Necrosis Amt Small (1-33%) -Necrotic Tissue Type Eschar -Structure Exposed N/A -Texture (Анна-wound Skin Appearance) Scarring -Moisture (Анна-wound Skin Appearance No Abnormality ) -Color (Анна-wound Skin Appearance) Mottled -Temperature (Анна-wound Skin No Abnormality Appearance) (Pt Warm) -Tenderness on Palpation (Анна-wound No Skin Appearance) -Ulcer Cleansing Wound Cleanser -Foul Odor after Cleansing No -Anesthetic Used 4% Lidocaine Solution #2-LEFT 1ST METATARSAL FOOT -Current Size (cm) - Length 0.6 -Current Size (cm) - Width 0.6 -Current Size (cm) - Depth 0.6 -Total Square Cm 0.36 -Photo Taken No -Exudate Amt Medium -Exudate Type Serosanguineous -Wound Margin Distinct, Outline Attached -Granulation Amt Medium (34-66%) -Granulation Quality Red -Necrosis Amt Medium (34-66%) -Necrotic Tissue Type Adherent Slough -Structure Exposed Bone -Texture (Анна-wound Skin Appearance) Localized Edema ,Scarring -Moisture (Анна-wound Skin Appearance No Abnormality ) -Color (Анна-wound Skin Appearance) Mottled -Temperature (Анна-wound Skin No Abnormality Appearance) (Pt Warm) -Tenderness on Palpation (Анна-wound No Skin Appearance) -Ulcer Cleansing Wound Cleanser -Foul Odor after Cleansing No -Anesthetic Used 4% Lidocaine Solution WC - Nurse 2 - General Ulcer CM Notes Start: 06/12/20 09:34 Freq: Status: Active Protocol: Activity Type Activity Date Activity User E-Sign Co-Sign Detail Recorded Client Recorded Date Recorded By Document 06/30/20 10:56 REJI [id number] 06/30/20 11:13 REJI 06/30/20 10:56 Wound Center Nurse 2 [Procedure/Treatment] #4 left medial 1st metatarsal -Time 11:10 -Correct Patient Yes -Correct Side, Site, Position Yes -Correct Procedure Yes -Procedure Performed Yes -Type of Procedure Debridement -Clinical Debridement Subcutaneous -Tissue Removed Subcutaneous -Post Debridement (cm) - Length 0.4 -Post Debridement (cm) - Width 0.2 -Post Debridement (cm) - Depth 0.4 -Total Square (Post) (cm) 0.08 -Area of Debridement (cm) - Length 0.4 -Area of Debridement (cm) - Width 0.2 -Total Square (Area) (cm) 0.08 -Tunneling No -Undermining/Tunneling No -Circular Undermining No -Wound/Ulcer Outcome Not Healed -Ulcer Cleansing Rinsed/ Irrigated with Saline -Foul Odor after Cleansing No -Bioengineered Tissue No -Bleeding Controlled with NA -Offloading Yes -Type of Offloading Surgical Shoe -Treatment Response Procedure Tolerated Well -Debridement - Subq, 1st 20sq cm Yes #3 LEFT 4TH METATARSAL FOOT -Time 11:11 -Correct Patient Yes -Correct Side, Site, Position Yes -Correct Procedure Yes -Procedure Performed Yes -Type of Procedure Debridement -Clinical Debridement Subcutaneous -Tissue Removed Subcutaneous -Post Debridement (cm) - Length 0.3 -Post Debridement (cm) - Width 0.3 -Post Debridement (cm) - Depth 0.1 -Total Square (Post) (cm) 0.09 -Area of Debridement (cm) - Length 0.3 -Area of Debridement (cm) - Width 0.3 -Total Square (Area) (cm) 0.09 -Tunneling No -Undermining/Tunneling No -Circular Undermining No -Wound/Ulcer Outcome Not Healed -Ulcer Cleansing Rinsed/ Irrigated with Saline -Foul Odor after Cleansing No -Bioengineered Tissue No -Bleeding Controlled with Pressure -Offloading Yes -Type of Offloading Surgical Shoe -Treatment Response Procedure Tolerated Well -Debridement - Subq, 1st 20sq cm No #2-LEFT 1ST METATARSAL FOOT -Time 11:12 -Correct Patient Yes -Correct Side, Site, Position Yes -Correct Procedure Yes -Procedure Performed Yes -Type of Procedure Debridement -Clinical Debridement Subcutaneous -Tissue Removed Subcutaneous -Post Debridement (cm) - Length 0.6 -Post Debridement (cm) - Width 0.9 -Post Debridement (cm) - Depth 1.5 -Total Square (Post) (cm) 0.54 -Area of Debridement (cm) - Length 0.6 -Area of Debridement (cm) - Width 0.9 -Total Square (Area) (cm) 0.54 -Tunneling No -Undermining/Tunneling No -Circular Undermining No -Wound/Ulcer Outcome Not Healed -Ulcer Cleansing Rinsed/ Irrigated with Saline -Foul Odor after Cleansing No -Bioengineered Tissue No -Bleeding Controlled with Pressure -Offloading Yes -Type of Offloading Surgical Shoe -Treatment Response Procedure Tolerated Well -Debridement - Subq, 1st 20sq cm No [See Physician Procedure note for Specifics] Pain Scale: 0-10 Numeric [Pain] -Is Patient Pain Free? Yes Musculoskeletal: No Tenderness to Palpation of Joints or Extremities, Muscle Wasting, - - fat pad atrophy with easily palpable metatarsal heads Neurological: - - decreased epicritic sensation Psych/Mental Status: Normal Affect, Appropriate Debridement Note Post-Debridement Measurements/Treatment WC - Nurse 2 - General Ulcer CM Notes Start: 06/12/20 09:34 Freq: Status: Active Protocol: Activity Type Activity Date Activity User E-Sign Co-Sign Detail Recorded Client Recorded Date Recorded By Document 06/12/20 10:16 MW [id number] 06/12/20 10:42 MW Document 06/16/20 10:28 JF [id number] 06/16/20 10:44 JF Document 06/30/20 10:56 JF [id number] 06/30/20 11:13 JF 06/12/20 06/16/20 06/30/20 10:16 10:28 10:56 Wound Center Nurse 2 #4 left medial 1st metatarsal -Time 10:30 10:38 11:10 -Correct Patient Yes Yes Yes -Correct Side, Site, Position Yes Yes Yes -Correct Procedure Yes Yes Yes -Procedure Performed Yes Yes Yes -Type of Procedure Debridement Debridement Debridement -Clinical Debridement Subcutaneous Subcutaneous Subcutaneous -Tissue Removed Subcutaneous Subcutaneous -Post Debridement (cm) - Length 0.5 0.8 0.4 -Post Debridement (cm) - Width 1.5 1 0.2 -Post Debridement (cm) - Depth 0.3 0.6 0.4 -Total Square (Post) (cm) 0.75 0.8 0.08 -Area of Debridement (cm) - Length 0.5 0.8 0.4 -Area of Debridement (cm) - Width 1.5 1 0.2 -Total Square (Area) (cm) 0.75 0.8 0.08 -Tunneling No No No -Undermining/Tunneling No No No -Circular Undermining No No No -Wound/Ulcer Outcome Not Healed Not Healed Not Healed -Ulcer Cleansing Rinsed/ Rinsed/ Rinsed/ Irrigated with Irrigated with Irrigated with Saline Saline Saline -Foul Odor after Cleansing No No No -Bioengineered Tissue No No No -Bleeding Controlled with Pressure Pressure NA -Offloading No Yes Yes -Type of Offloading Surgical Shoe Surgical Shoe -Treatment Response Procedure Procedure Tolerated Well Tolerated Well -Debridement - Subq, 1st 20sq cm No Yes Yes #3 LEFT 4TH METATARSAL FOOT -Time 10:21 10:38 11:11 -Correct Patient Yes Yes Yes -Correct Side, Site, Position Yes Yes Yes -Correct Procedure Yes Yes Yes -Procedure Performed Yes Yes Yes -Type of Procedure Debridement Debridement Debridement -Clinical Debridement Subcutaneous Subcutaneous Subcutaneous -Tissue Removed Subcutaneous Subcutaneous Subcutaneous -Post Debridement (cm) - Length 0.1 0.4 0.3 -Post Debridement (cm) - Width 0.2 0.3 0.3 -Post Debridement (cm) - Depth 0.1 0.2 0.1 -Total Square (Post) (cm) 0.02 0.12 0.09 -Area of Debridement (cm) - Length 0.1 0.4 0.3 -Area of Debridement (cm) - Width 0.2 0.3 0.3 -Total Square (Area) (cm) 0.02 0.12 0.09 -Tunneling No No No -Undermining/Tunneling No No No -Circular Undermining No No No -Wound/Ulcer Outcome Not Healed Not Healed Not Healed -Ulcer Cleansing Rinsed/ Rinsed/ Rinsed/ Irrigated with Irrigated with Irrigated with Saline Saline Saline -Foul Odor after Cleansing No No No -Bioengineered Tissue No No No -Bleeding Controlled with Pressure Pressure Pressure -Offloading No No Yes -Type of Offloading Surgical Shoe Surgical Shoe -Treatment Response Procedure Procedure Procedure Tolerated Well Tolerated Well Tolerated Well -Debridement - Subq, 1st 20sq cm Yes No No #2-LEFT 1ST METATARSAL FOOT -Time 10:21 10:40 11:12 -Correct Patient Yes Yes Yes -Correct Side, Site, Position Yes Yes Yes -Correct Procedure Yes Yes Yes -Procedure Performed Yes Yes Yes -Type of Procedure Debridement Debridement Debridement -Clinical Debridement Subcutaneous Subcutaneous Subcutaneous -Tissue Removed Subcutaneous Subcutaneous Subcutaneous -Post Debridement (cm) - Length 0.6 0.2 0.6 -Post Debridement (cm) - Width 0.9 0.7 0.9 -Post Debridement (cm) - Depth 0.4 0.2 1.5 -Total Square (Post) (cm) 0.54 0.14 0.54 -Area of Debridement (cm) - Length 0.6 0.2 0.6 -Area of Debridement (cm) - Width 0.9 0.7 0.9 -Total Square (Area) (cm) 0.54 0.14 0.54 -Tunneling No No No -Undermining/Tunneling No No No -Undermining/Tunneling Starts (O'clock 6 ) -Undermining/Tunneling Ends (O'clock) 12 -Maximum Distance (cm) 0.6 -Circular Undermining No No No -Wound/Ulcer Outcome Not Healed Not Healed Not Healed -Ulcer Cleansing Rinsed/ Rinsed/ Rinsed/ Irrigated with Irrigated with Irrigated with Saline Saline Saline -Foul Odor after Cleansing No No No -Bioengineered Tissue No No No -Bleeding Controlled with Pressure Pressure Pressure -Offloading No Yes Yes -Type of Offloading Surgical Shoe Surgical Shoe -Treatment Response Procedure Procedure Tolerated Well Tolerated Well -Debridement - Subq, 1st 20sq cm No No No Pain Scale: 0-10 Numeric Is Patient Pain Free? Yes Yes Yes WC - Nurse 3 - General Ulcer D/C NN Start: 06/12/20 09:34 Freq: Status: Active Protocol: Activity Type Activity Date Activity User E-Sign Co-Sign Detail Recorded Client Recorded Date Recorded By Document 06/12/20 11:14 DL [id number] 06/12/20 11:18 DL Document 06/16/20 10:55 DL [id number] 06/16/20 10:57 DL 06/12/20 06/16/20 11:14 10:55 Wound Care Nurse 3 #4 left medial 1st metatarsal -Ulcer Cleansing Wound Cleanser Rinsed/ Irrigated with Saline -Foul Odor after Cleansing No No -Primary Dressing Applied Aquacel Extra -Other Dressing aqaucel ex -Primary Dressing Covered/Secured with Dry Gauze & Dry Gauze & Roll Gauze, Roll Gauze, Secured with Secured with Tape Tape -Aquacel Extra 1 #3 LEFT 4TH METATARSAL FOOT -Ulcer Cleansing Wound Cleanser Rinsed/ Irrigated with Saline -Foul Odor after Cleansing No No -Primary Dressing Applied Promogran -Other Dressing promogran -Primary Dressing Covered/Secured with Dry Gauze & Dry Gauze & Roll Gauze, Roll Gauze, Secured with Secured with Tape Tape -Promogran 1 #2-LEFT 1ST METATARSAL FOOT -Ulcer Cleansing Wound Cleanser Rinsed/ Irrigated with Saline -Foul Odor after Cleansing No No -Primary Dressing Applied Promogran -Other Dressing aquacel EX -Primary Dressing Covered/Secured with Dry Gauze & Dry Gauze & Roll Gauze, Roll Gauze, Secured with Secured with Tape Tape -Promogran 0 Treatment Response Procedure Procedure Tolerated Well Tolerated Well Pain Scale: 0-10 Numeric Is Patient Pain Free? Yes Yes WC - Visit Discharge Discharge Condition Stable Stable Ambulatory Status Ambulatory Ambulatory Transportation Private Auto Private Auto Accompanied by Wound debrided: plantar 1st metatarsal head Laterality: Left Wound Grade/Stage: dickson 3 Type of Debridement: Excisional debridement Anesthesia Used: 4% Lidocaine Solution Depth: to bone - subcutaneous layer debrided Percentage of wound debrided: 100 Instrument Used: 3mm curette Tissue Removed: Tissue removed includes fibrous, devitalized, biofilm, and slough tissue Severity: Fat Layer Exposed Amount of bleeding with debridement: Moderate Bleeding Controlled with: Pressure Patient tolerated procedure well - Additional Wound Wound debrided: medial hallux Laterality: Left Wound Grade/Stage: dickson 1 Type of Debridement: Excisional debridement Anesthesia Used: 4% Lidocaine Solution Depth: in the subcutaneous layer Percentage of wound debrided: 100 Instrument Used: 3mm curette Tissue Removed: Tissue removed includes fibrous, devitalized, biofilm, and slough tissue Severity: Fat Layer Exposed Amount of bleeding with debridement: Mild Bleeding Controlled with: Pressure - Additional Wound Wound debrided: sub 4th metatarsal head Laterality: Left Wound Grade/Stage: dickson 1 Type of Debridement: Excisional debridement Anesthesia Used: 4% Lidocaine Solution Depth: in the subcutaneous layer Percentage of wound debrided: 100 Instrument Used: 3mm curette Tissue Removed: Tissue removed includes fibrous, devitalized, biofilm, and slough tissue Severity: Fat Layer Exposed Amount of bleeding with debridement: Mild Bleeding Controlled with: Pressure Patient tolerated procedure: Patient tolerated procedure well Assessment/Plan Clinical Impression(s) from Imaging Studies Lower Extremity MRI 06/25/20 16:00 IMPRESSION: Acute on chronic first metatarsal head osteomyelitis 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 Stage 2 pressure ulcer left plantar foot 4th metatarsal head. Stage 3 pressure ulcer left medial 1st metatarsal. osteomyelitis 1st metatarsal left foot. Rheumatoid arthritis. Chronic immunosuppression. Chronic prednisone use Plan: Patient seen and examined. Kylah's ulcers were evaluated and debrided today at the wound center after verbal consent obtained. Ulceration to medial hallux noted to have surrounding erythema and edema resolved. Plantar first metatarsal wound has easily bone exposed probably tibial sesamoid as well as medtatarsal. Xray 05/29/2020 did not show osteomyelitis. Given clilnical appearance MRI was ordered. MRI 06/25/20 showed evidence of osteomyelitis to diaphysis of 1st metatarsal. Discussed that bone is noted to be infected that surgical intervention with removal of the infected bone with amputation versus long-term course of IV antibiotics. Reviewed the risks and benefits of each option. Patient is reluctant to have an amputation. She would like to try IV antibiotics first. Referral was sent to Dr Davis in Infectious disease. Discussed that her toes are on the cool side and she has not had any blood flow studies since 2017. New LEAS 06/30/20 showed moderate distal small vessle disease bilaterally at the digits. The left foot was noted to have biphasic pulses with CRUZ of 1.27 and TBI of 0.37. The left PT was noncompressible. The right foot PT and DP were noncomressible and TBI of 0.4 with triphasic and biphasic pulsibles. The etiology of her ulcers appears to be from pressure at sites of metatarsal heads as there is significant fat pad atrophy. Discussed with the patient the importance of proper shoe gear with good padding to supplement lost fat pad. This is most likey due to her rheumatoid arthritis, chronic prednisone treatment may also have a role in the nonhealing of the ulcers. Offloading was discussed, patient relates that she has a surgical shoe with forefoot offloaded. Patient relates she doesn't wear it. Recommend patient wear surgical shoe at this time. She was advised to try to avoid standing and being on her feet for long periods and to elevate her feet as much as possible. 20 to 29 minutes was spent on this encounter. This included both face to face and non face to face care, which includes but not limited to time preparing for the visit (which includes but not limited to reviewing medical record, any pertinent paperwork, as well as previous imaging and/or test results), reviewing/obtaining the noted history, performing the noted examination, counseling and providing education to the patient as well as to patient's family and/or patient caregivers per patient request. This also includes ordering any medication(s), test(s), and/or procedure(s) as indicated and as documented in the medical record, interpreting / sharing this information when indicated (and with patient's permission) as documented, communicating with other healthcare providers as needed/as requested, the time documenting information in the medical record, as well as any further care coordination. Encouraged protein rich diet and protein supplements. Advised to call with questions or concerns. Follow-up in 1 week. This note was generated with [employer] software. It may contain incorrect words, spelling, and punctuation that were not noted in checking the note before signing.
== END 2020-07-05 23:59 ==
LOC: WC 10:00
PROVIDERS: PCP Family Medicine; Visit Provider Podiatrist Foot & Ankle Surgery
DX: L89.892 Pressure ulcer of other site, stage 2 (principal); L89.893 Pressure ulcer of other site, stage 3; L89.894 Pressure ulcer of other site, stage 4; M06.9 Rheumatoid arthritis, unspecified; M86.9 Osteomyelitis, unspecified; D84.821 Immunodeficiency due to drugs; Z79.52 Long term (current) use of systemic steroids; Z82.49 Family history of ischemic heart disease and other diseases of the circulatory system; M81.0 Age-related osteoporosis without current pathological fracture; I10 Essential (primary) hypertension
CPT/HCPCS: 11042; 73718; 87070; 87075; 87077; 87186; 87205; 93923

== ENCOUNTER 2020-07-21 10:44 | Day surgery (SDC) | payer MEDICARE, SELFPAY ==
[2020-07-07 10:03] VITALS: BMI 18.6
[2020-07-14 10:10] VITALS: BMI 18.6
[2020-07-17 14:35] VITALS: BMI 18.6
[2020-07-21] VITALS (8 sets, daily range): BP systolic 123–156; BP diastolic 59–70; PULSE 88–97; RESP 16; TEMP 36.4–36.9; O2SAT 98–99
[2020-07-21 10:59] LABS: Hematocrit 44.5 % (37-47); Hemoglobin 14.1 g/dL (12.0-15.0); Mean Corp Hgb Conc 31.7 g/dL (32-36); Mean Corpuscular Volume 107.2 fL (81-99); Platelet Count 187 K/mm3 (150-450); RBC Distribution Width CV 13.8 % (11.6-14.6); RBC Distribution Width SD 54.4 fl (35.1-43.9); Red Blood Count 4.15 M/mm3 (4.2-5.4); White Blood Count 8.2 K/mm3 (4.4-11.0)
[2020-07-21 11:13] LABS: Albumin, Serum 3.7 g/dL (3.2-5.0); BUN 20 mg/dL (7-18); BUN/Creat Ratio 18.7 RATIO (10-20); Calcium,Total 8.3 mg/dL (8.5-10.1); Chloride 107 mmol/L (98-107); Creatinine, Serum 1.07 mg/dL (0.55-1.02); EST Glomerular Filtration Rate 53 mL/min (>60); Est Glom Filt Rate - Afr Amer 64 mL/min (>60); Estimated Creatinine Clearance 32.16 ml/min; Glucose 99 mg/dL (74-106); Phosphorus 3.5 mg/dL (2.5-4.9); Potassium 3.7 mmol/L (3.5-5.1); Sodium Level 142 mmol/L (136-145)
--- NOTE | 2020-07-21 15:01 | PCM.OPRPT ---
Problem List (1) PAD (peripheral artery disease) Status: Acute (2) Traumatic open wound of left lower leg with delayed healing Status: Chronic Report of Operation Date of Procedure: 07/21/20 Pre-Operative Diagnosis: PAD with nonhealing wound Post-Operative Diagnosis: The same Surgery/Procedure Performed:: 1. Ultrasound-guided access retrograde right common femoral artery. 2. Left lower extremity angiogram with catheter placed into the third order posterior tibial artery. 3. Closure with Star close Type of Anesthesia:: Sedation,Conscious Description of Procedure: Patient brought to the [facility]. Underwent the appropriate timeout consent. Prepped and draped in a sterile fashion. Underwent conscious sedation. We did ultrasound-guided access retrograde right common femoral artery. Put a Glidewire up and then a 5 [place] sheath. Gave 5000 units of heparin. We got up and over the bifurcation. Did an angiogram from the left iliac artery. This showed the common femoral artery, the profunda, and the femoral artery widely patent. Brought the catheter down the leg and the popliteal artery through the anterior tibial artery peroneal and posterior tibial artery were patent to the distal calf. We then imaged down at the ankle and the anterior tibial artery was patent and's smaller dorsalis pedis that filled through the arch. Peroneal artery was also smaller distally and had collateral flow going towards the posterior tibial artery. Posterior tibial artery was patent all the way to just at the level of the ankle where there is a small area of very calcified occlusive disease. Collateral filled distal to this then filling into the plantars. We brought in a long 5 [place] sheath and using a 1 4 wire and catheter try to get through this area the occlusion. We eventually look like it got through but had a small perforation just around the area of the occlusive disease. We then removed out the wire catheter and imaged again and still had good flow going through wound through the collaterals around this. We then put the Glidewire back and removed the sheath deployed a Star close with good hemostasis brought to recovery stable condition. Plan: If this is still slow healing we may need to come back and try to do an antegrade approach through the common femoral artery to see if that distal posterior tibial artery needs open. Otherwise appears probably adequate flow and should be able to heal the wounds. Sedation: This 75-year-old female underwent moderate sedation given by Dr. Bruno Oseguera. She was monitored EKG blood pressure and pulse ox for over the 30 minutes of the procedure. See the EMR for the complete record.
--- NOTE | 2020-07-21 16:36 | NURSING ---
no change in rt groin site and pt sat up 30degrees in bed and water given. ordered supper for pt. vs stable. no other needs at this time.
--- NOTE | 2020-07-21 17:27 | NURSING ---
pt sitting up 30 degrees in bed with dinner. vs stable and rt groin site good.
--- NOTE | 2020-07-21 18:19 | NURSING ---
1800-pt placed on bedpan and able to void 150cc. up in bed to finish supper and reported that feels so much better groin site intact and remains unchanged. will give dc instructions and papers so pt can be dc'd rt after ambulates if site ok.
--- NOTE | 2020-07-21 19:11 | NURSING ---
br time up and pt up to br to void then to amb in [place]. back to room and rt groin site remains unchanged. technical support manager in to assist with dressing and waiting downstairs. dc'd home via wc with all belongings
== END 2020-07-21 19:14 | disposition home or self-care (01) ==
LOC: CLSP 10:44 → PCU 15:48
PROVIDERS: PCP Physician Assistant; Referring Provider Surgery Vascular Surgery; Visit Provider Surgery Vascular Surgery
DX: I70.213 Atherosclerosis of native arteries of extremities with intermittent claudication, bilateral legs (principal); I77.1 Stricture of artery; M19.90 Unspecified osteoarthritis, unspecified site; I10 Essential (primary) hypertension; E78.00 Pure hypercholesterolemia, unspecified
CPT/HCPCS: 36245; 36415; 75710; 76937; 80069; 85027; 99152; 99153; J7040; Q9967; C1760; C1769; C1887; C1894

== ENCOUNTER 2020-08-04 10:00 | Outpatient (RCR) | payer MEDICARE, SELFPAY ==
[2020-07-06 00:33] VITALS: BP 188/69; PULSE 94; RESP 18; TEMP 36.6
[2020-07-07 10:03] VITALS: BP 192/86; PULSE 96; RESP 16; TEMP 36.8; BMI 18.6
--- NOTE | 2020-07-07 10:34 | PCM.WC.PN ---
(1) Delayed wound healing Status: Chronic Code(s): T14.8XXD - Other injury of unspecified body region, subsequent encounter (2) Steroid long-term use Status: Chronic (3) Pressure ulcer of toe of left foot, stage 4 Status: Chronic Code(s): L89.894 - Pressure ulcer of other site, stage 4 (4) Pressure ulcer of left foot, stage 3 Status: Chronic Code(s): L89.893 - Pressure ulcer of other site, stage 3 (5) Osteomyelitis Status: Acute Qualifiers: Code(s): M86.9 - Osteomyelitis, unspecified (6) Rheumatoid arthritis Status: Chronic Qualifiers: Rheumatoid arthritis location: foot Laterality: bilateral Code(s): M06.9 - Rheumatoid arthritis, unspecified Type of Wound Date of Service: 07/07/20 Chief Complaint: Pressure ulcer plantar left great toe/metatarsal History of Wound: Kylah is a 75-year-old female who was referred here for treatment of an ulcer at the base of her great toe at her metatarsal head from Dr. Poe, her licensing services clerk. She has been receiving treatment to this area for the last [address] Poe has attempted to debride and close it surgically with sutures but it reopened and it hasn't healed. She has been seeing him weekly and has been using silvadene and Aquacel Ag to treat her ulcer with dressing changes once weekly and sometimes once in between if there is a lot of drainage. 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 Patient has had a recent culture on 05/11/20, positive for Staphylococcus lugendenosis. Another culture was taken which demonstrated staph epididymis. With most recent culture taken 07/01/2020 with no growth seen. Patient is no longer on antibiotics. She has previously demonstrated an apparent allergy to collagen hydrogel. The patient has had vascular studies, without evidence of significant superficial vein incompetence in the left lower extremity in 2017. Her noninvasive lower extremity arterial study reveals normal ankle?brachial indices bilaterally in 2017. New studies showed moderate distal small vessel disease bilaterally at the digits with some non compressible vessels. She had MRI on 06/25/20 which showed osteomyelitis to 1st metatarsal. Patient has appointment with Dr. Pantoja in infectious disease and Dr. Oseguera in vascular surgery tomorrow. The patient is noted to be on prednisone and methotrexate for her rheumatoid arthritis. These are acknowledged to be possible inhibitors to wound healing. She denies any systemic signs of infection such as fever, chills, erythema, increased drainage, nausea, vomiting. Progress of Wound: wounds are stable with some improvement noted to medial hallux and subfourth ulcerations. No significant change to subfirst metatarsal ulceration Subjective: Patient seen and examined resting comfortably. Patient denies any new pedal complaints. Patient denies any nausea, fever, chills, chest pain, shortness of breath, cough, streaking, purulence, vomiting. Patient states that the surgical shoe is painful to one of her ulcerations and will need further modification. - Physical Exam Vital Signs Temp Pulse Resp BP 98.2 F 96 16 192/86 H 07/07/20 10:03 07/07/20 10:03 07/07/20 10:07/07/20 10:03 General: Alert, Oriented x3 HEENT: Atraumatic Extremities: No clubbing, No cyanosis, No edema, Capillary Refill Less than 3 Seconds, No Calf Tenderness, Diminished Peripheral Pulses Skin: No rashes, Ulcer/ Wound - Left foot subfourth metatarsal heads and medial hallux. No malodor, erythema, purulence, probing to bone, streaking, or other signs of infection. Skin is atrophic and hairless. Granular base with serosanguineous drainage after debridement. Surrounding callus is noted to subfourth wound, - - Ulceration subfirst metatarsal left foot. No malodor, erythema, purulence, streaking, or other signs of infection. Skin is atrophic and hairless. Wound probes to bone which is easily visualized through the ulceration deficit. Granular base with serosanguineous drainage after debridement Wound Measurements and Assessment WC - Nurse 1 - General Ulcer Measurement Start: 07/07/20 10:03 Freq: Status: Active Protocol: Activity Type Activity Date Activity User E-Sign Co-Sign Detail Recorded Client Recorded Date Recorded By Document 07/07/20 10:03 [facility] [id number] 07/07/20 10:07 [facility] 07/07/20 10:03 Wound Center Nurse 1 [Ulcer Assessment] #4 left medial hallux -Combined with other wound No -Current Size (cm) - Length 0.1 -Current Size (cm) - Width 0.1 -Current Size (cm) - Depth 0.1 -Total Square Cm 0.01 -Epithelialization Large 67-100% #3 LEFT 4TH METATARSAL FOOT -Combined with other wound No -Current Size (cm) - Length 0.1 -Current Size (cm) - Width 0.1 -Current Size (cm) - Depth 0.1 -Total Square Cm 0.01 -Epithelialization Large 67-100% #2-LEFT 1ST METATARSAL FOOT -Combined with other wound No -Current Size (cm) - Length 0.6 -Current Size (cm) - Width 0.6 -Current Size (cm) - Depth 0.5 -Total Square Cm 0.36 -Photo Taken No -Epithelialization None Present -Tunneling No -Undermining/Tunneling No -Circular Undermining No -Exudate Amt Medium -Exudate Type Serosanguineous -Wound Margin Distinct, Outline Attached -Granulation Amt Large (67-100%) -Granulation Quality [place] -Slough/Fibrin No -Necrosis Amt None Present (0 %) -Structure Exposed Bone -Texture (Анна-wound Skin Appearance) Assessed -Moisture (Анна-wound Skin Appearance Assessed,Dry/ ) Scaly -Color (Анна-wound Skin Appearance) Assessed -Temperature (Анна-wound Skin No Abnormality Appearance) (Pt Warm) -Tenderness on Palpation (Анна-wound No Skin Appearance) -Ulcer Cleansing Rinsed/ Irrigated with Saline -Foul Odor after Cleansing No -Anesthetic Used 4% Lidocaine Solution WC - Nurse 2 - General Ulcer CM Notes Start: 07/07/20 10:03 Freq: Status: Active Protocol: Activity Type Activity Date Activity User E-Sign Co-Sign Detail Recorded Client Recorded Date Recorded By Document 07/07/20 10:21 REJI [id number] 07/07/20 10:28 REJI 07/07/20 10:21 Wound Center Nurse 2 [Procedure/Treatment] #4 left medial hallux -Time 10:21 -Correct Patient Yes -Correct Side, Site, Position Yes -Correct Procedure Yes -Procedure Performed Yes -Type of Procedure Debridement -Clinical Debridement Subcutaneous -Tissue Removed Subcutaneous -Post Debridement (cm) - Length 0.2 -Post Debridement (cm) - Width 0.1 -Post Debridement (cm) - Depth 0.1 -Total Square (Post) (cm) 0.02 -Area of Debridement (cm) - Length 0.2 -Area of Debridement (cm) - Width 0.1 -Total Square (Area) (cm) 0.02 -Tunneling No -Undermining/Tunneling No -Circular Undermining No -Wound/Ulcer Outcome Not Healed -Ulcer Cleansing Rinsed/ Irrigated with Saline -Foul Odor after Cleansing No -Bioengineered Tissue No -Bleeding Controlled with Pressure -Offloading Yes -Type of Offloading Surgical Shoe -Treatment Response Procedure Tolerated Well -Debridement - Subq, 1st 20sq cm Yes #3 LEFT 4TH METATARSAL FOOT -Time 10:24 -Correct Patient Yes -Correct Side, Site, Position Yes -Correct Procedure Yes -Procedure Performed Yes -Type of Procedure Debridement -Clinical Debridement Subcutaneous -Tissue Removed Subcutaneous -Post Debridement (cm) - Length 0.4 -Post Debridement (cm) - Width 0.3 -Post Debridement (cm) - Depth 0.1 -Total Square (Post) (cm) 0.12 -Area of Debridement (cm) - Length 0.4 -Area of Debridement (cm) - Width 0.3 -Total Square (Area) (cm) 0.12 -Tunneling No -Undermining/Tunneling No -Circular Undermining No -Wound/Ulcer Outcome Not Healed -Ulcer Cleansing Rinsed/ Irrigated with Saline -Foul Odor after Cleansing No -Bioengineered Tissue No -Bleeding Controlled with Pressure -Offloading Yes -Type of Offloading Surgical Shoe -Treatment Response Procedure Tolerated Well -Debridement - Subq, 1st 20sq cm No #2-LEFT 1ST METATARSAL FOOT -Time 10:24 -Correct Patient Yes -Correct Side, Site, Position Yes -Correct Procedure Yes -Procedure Performed Yes -Type of Procedure Debridement -Clinical Debridement Subcutaneous -Tissue Removed Subcutaneous -Post Debridement (cm) - Length 0.5 -Post Debridement (cm) - Width 0.8 -Post Debridement (cm) - Depth 0.6 -Total Square (Post) (cm) 0.40 -Area of Debridement (cm) - Length 0.5 -Area of Debridement (cm) - Width 0.8 -Total Square (Area) (cm) 0.40 -Tunneling No -Undermining/Tunneling No -Circular Undermining No -Wound/Ulcer Outcome Not Healed -Ulcer Cleansing Rinsed/ Irrigated with Saline -Foul Odor after Cleansing No -Bioengineered Tissue No -Bleeding Controlled with Pressure -Offloading Yes -Type of Offloading Surgical Shoe -Treatment Response Procedure Tolerated Well -Debridement - Subq, 1st 20sq cm No [See Physician Procedure note for Specifics] Pain Scale: 0-10 Numeric [Pain] -Is Patient Pain Free? Yes Musculoskeletal: Muscle Wasting, Tenderness, - - Atrophic plantar fat pad with easily palpable metatarsal heads Neurological: Sensory exam intact to light touch and pain Psych/Mental Status: Normal Affect, Appropriate Debridement Note Post-Debridement Measurements/Treatment WC - Nurse 2 - General Ulcer CM Notes Start: 07/07/20 10:03 Freq: Status: Active Protocol: Activity Type Activity Date Activity User E-Sign Co-Sign Detail Recorded Client Recorded Date Recorded By Document 07/07/20 10:21 REJI [id number] 07/07/20 10:28 REJI 07/07/20 10:21 Wound Center Nurse 2 #4 left medial hallux -Time 10:21 -Correct Patient Yes -Correct Side, Site, Position Yes -Correct Procedure Yes -Procedure Performed Yes -Type of Procedure Debridement -Clinical Debridement Subcutaneous -Tissue Removed Subcutaneous -Post Debridement (cm) - Length 0.2 -Post Debridement (cm) - Width 0.1 -Post Debridement (cm) - Depth 0.1 -Total Square (Post) (cm) 0.02 -Area of Debridement (cm) - Length 0.2 -Area of Debridement (cm) - Width 0.1 -Total Square (Area) (cm) 0.02 -Tunneling No -Undermining/Tunneling No -Circular Undermining No -Wound/Ulcer Outcome Not Healed -Ulcer Cleansing Rinsed/ Irrigated with Saline -Foul Odor after Cleansing No -Bioengineered Tissue No -Bleeding Controlled with Pressure -Offloading Yes -Type of Offloading Surgical Shoe -Treatment Response Procedure Tolerated Well -Debridement - Subq, 1st 20sq cm Yes #3 LEFT 4TH METATARSAL FOOT -Time 10:24 -Correct Patient Yes -Correct Side, Site, Position Yes -Correct Procedure Yes -Procedure Performed Yes -Type of Procedure Debridement -Clinical Debridement Subcutaneous -Tissue Removed Subcutaneous -Post Debridement (cm) - Length 0.4 -Post Debridement (cm) - Width 0.3 -Post Debridement (cm) - Depth 0.1 -Total Square (Post) (cm) 0.12 -Area of Debridement (cm) - Length 0.4 -Area of Debridement (cm) - Width 0.3 -Total Square (Area) (cm) 0.12 -Tunneling No -Undermining/Tunneling No -Circular Undermining No -Wound/Ulcer Outcome Not Healed -Ulcer Cleansing Rinsed/ Irrigated with Saline -Foul Odor after Cleansing No -Bioengineered Tissue No -Bleeding Controlled with Pressure -Offloading Yes -Type of Offloading Surgical Shoe -Treatment Response Procedure Tolerated Well -Debridement - Subq, 1st 20sq cm No #2-LEFT 1ST METATARSAL FOOT -Time 10:24 -Correct Patient Yes -Correct Side, Site, Position Yes -Correct Procedure Yes -Procedure Performed Yes -Type of Procedure Debridement -Clinical Debridement Subcutaneous -Tissue Removed Subcutaneous -Post Debridement (cm) - Length 0.5 -Post Debridement (cm) - Width 0.8 -Post Debridement (cm) - Depth 0.6 -Total Square (Post) (cm) 0.40 -Area of Debridement (cm) - Length 0.5 -Area of Debridement (cm) - Width 0.8 -Total Square (Area) (cm) 0.40 -Tunneling No -Undermining/Tunneling No -Circular Undermining No -Wound/Ulcer Outcome Not Healed -Ulcer Cleansing Rinsed/ Irrigated with Saline -Foul Odor after Cleansing No -Bioengineered Tissue No -Bleeding Controlled with Pressure -Offloading Yes -Type of Offloading Surgical Shoe -Treatment Response Procedure Tolerated Well -Debridement - Subq, 1st 20sq cm No Pain Scale: 0-10 Numeric Is Patient Pain Free? Yes Wound debrided: Subfirst metatarsal head Laterality: Left Wound Grade/Stage: Pressure 4 Type of Debridement: Excisional debridement Anesthesia Used: 4% Lidocaine Solution Depth: to bone Percentage of wound debrided: 100 Instrument Used: #15 blade Tissue Removed: Tissue removed includes fibrous, devitalized, biofilm, and slough tissue Severity: Necrosis of Bone Amount of bleeding with debridement: Mild Bleeding Controlled with: Pressure Patient tolerated procedure well - Additional Wound Wound debrided: Subfourth metatarsal head Laterality: Left Wound Grade/Stage: Pressure 2 Type of Debridement: Excisional debridement Anesthesia Used: 4% Lidocaine Solution Depth: in the subcutaneous layer Percentage of wound debrided: 100 Instrument Used: #15 blade Tissue Removed: Tissue removed includes fibrous, devitalized, biofilm, slough, callus Severity: Fat Layer Exposed Amount of bleeding with debridement: Mild Bleeding Controlled with: Pressure Patient tolerated procedure: Patient tolerated procedure well - Additional Wound Wound debrided: Medial hallux Laterality: Left Wound Grade/Stage: Pressure 3 Type of Debridement: Excisional debridement Anesthesia Used: 4% Lidocaine Solution Depth: in the subcutaneous layer Percentage of wound debrided: 100 Instrument Used: #15 blade Tissue Removed: Tissue removed includes fibrous, devitalized, biofilm, and slough tissue Severity: Fat Layer Exposed Amount of bleeding with debridement: Mild Bleeding Controlled with: Pressure Patient tolerated procedure: Patient tolerated procedure well Assessment/Plan Assessment: Stage 4 pressure ulcer left plantar foot 1st metatarsal head. Stage 2 pressure ulcer left plantar foot 4th metatarsal head. Stage 3 pressure ulcer left medial 1st metatarsal. osteomyelitis 1st metatarsal left foot. Rheumatoid arthritis. Chronic immunosuppression. Chronic prednisone use Plan: Patient seen and examined. Kylah's ulcers were evaluated and debrided today at the wound center after verbal consent obtained. Plantar first metatarsal wound has easily bone exposed. Xray 05/29/2020 did not show osteomyelitis. Given clilnical appearance MRI was ordered. MRI 06/25/20 showed evidence of osteomyelitis to diaphysis of 1st metatarsal. Discussed that bone is noted to be infected that surgical intervention with removal of the infected bone with amputation versus long-term course of IV antibiotics. Reviewed the risks and benefits of each option. Patient is reluctant to have an amputation. She would like to try IV antibiotics first. Referral was sent to Dr Davis in Infectious disease. She is to see him tomorrow. Cultures obtained 06/30/2020 did not show any growth. Possible previous antibiotics patient was on have cleared up skin infection but bone infection may remain. Discussed that her toes are on the cool side and she has not had any blood flow studies since 2017. New LEAS 06/30/20 showed moderate distal small vessle disease bilaterally at the digits. The left foot was noted to have biphasic pulses with CRUZ of 1.27 and TBI of 0.37. The left PT was noncompressible. The right foot PT and DP were noncomressible and TBI of 0.4 with triphasic and biphasic pulsibles. Patient is scheduled for appointment with vascular doctor Dr. Oseguera tomorrow. The etiology of her ulcers appears to be from pressure at sites of metatarsal heads as there is significant fat pad atrophy. Discussed with the patient the importance of proper shoe gear with good padding to supplement lost fat pad. This is most likey due to her rheumatoid arthritis, chronic prednisone treatment may also have a role in the nonhealing of the ulcers. Offloading was discussed, patient relates that she has a surgical shoe with forefoot offloaded. Patient presents today wearing the surgical shoe. Further adjustment to the offloading was performed today. Relates upon standing that it felt good. Recommend patient wear surgical shoe at this time. She was advised to try to avoid standing and being on her feet for long periods and to elevate her feet as much as possible. Encouraged protein rich diet and protein supplements. Advised to call with questions or concerns. Continue wound care to foot ulcerations. Patient foot using silver cell to plantar first metatarsal wound and Promogran to medial hallux and subfourth ulcerations. Follow-up in 1 week. This note was generated with [employer] dictation software. It may contain incorrect words, spelling, and punctuation that were not noted in checking the note before signing.
[2020-07-14 10:10] VITALS: BP 167/87; PULSE 84; RESP 16; TEMP 36.6; BMI 18.6
--- NOTE | 2020-07-14 12:45 | PN.PCM_ITS ---
(1) Delayed wound healing Status: Chronic Code(s): T14.8XXD - Other injury of unspecified body region, subsequent encounter (2) Steroid long-term use Status: Chronic (3) Pressure ulcer of toe of left foot, stage 4 Status: Chronic Code(s): L89.894 - Pressure ulcer of other site, stage 4 (4) Pressure ulcer of left foot, stage 3 Status: Chronic Code(s): L89.893 - Pressure ulcer of other site, stage 3 (5) Osteomyelitis Status: Acute Qualifiers: Code(s): M86.9 - Osteomyelitis, unspecified (6) Rheumatoid arthritis Status: Chronic Qualifiers: Rheumatoid arthritis location: foot Laterality: bilateral Code(s): M06.9 - Rheumatoid arthritis, unspecified Type of Wound Date of Service: 07/14/20 Chief Complaint: Pressure ulcer plantar left great toe/metatarsal History of Wound: Kylah is a 75-year-old female who was referred here for treatment of an ulcer at the base of her great toe at her metatarsal head from Dr. Poe, her sueding machine tender. She has been receiving treatment to this area for the last [address] Poe has attempted to debride and close it surgically with sutures but it reopened and it hasn't healed. She has been seeing him weekly and has been using silvadene and Aquacel Ag to treat her ulcer with dressing changes once weekly and sometimes once in between if there is a lot of drainage. 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 Patient has had a recent culture on 05/11/20, positive for Staphylococcus lugendenosis. Another culture was taken which demonstrated staph epididymis. With most recent culture taken 07/01/2020 with no growth seen. She has previously demonstrated an apparent allergy to collagen hydrogel. The patient has had vascular studies, without evidence of significant superficial vein incompetence in the left lower extremity in 2017. Her noninvasive lower extremity arterial study reveals normal ankle?brachial indices bilaterally in 2017. New studies showed moderate distal small vessel disease bilaterally at the digits with some non compressible vessels. She had MRI on 06/25/20 which showed osteomyelitis to 1st metatarsal. Patient saw Dr Clements who started her on cephalexin and doxycycline to treat her osteomyelitis. She is also scheduled to have a procedure with Dr Oseguera 07/21/20. The patient is noted to be on prednisone and methotrexate for her rheumatoid arthritis. These are ack nowledged to be possible inhibitors to wound healing. She denies any systemic signs of infection such as fever, chills, erythema, increased drainage, nausea, vomiting. Progress of Wound: wounds are stable with some improvement noted to sub 4th metatarsal ulceration and hallux ulcer has healed. No significant change to subfirst metatarsal ulceration Subjective: Patient seen and examined resting comfortably. Patient denies any new pedal complaints. Patient denies any nausea, fever, chills, chest pain, shortness of breath, cough, streaking, purulence, vomiting. - Physical Exam Vital Signs Temp Pulse Resp BP 97.9 F 84 16 167/87 H 07/14/20 10:10 07/14/20 10:10 07/14/20 10:10 07/14/20 10:10 General: Alert, Oriented x3 HEENT: Atraumatic Extremities: No clubbing, No cyanosis, No edema, Capillary Refill Less than 3 Seconds, No Calf Tenderness, Diminished Peripheral Pulses Skin: Ulcer/ Wound - sub 1 and 4th metatarsal head ulceration left. No malodor, erythema, purulence, probing to bone, streaking, or other signs of infection. Skin is atrophic and hairless. Granular base, - - medial hallux left has healed Wound Measurements and Assessment WC - Nurse 1 - General Ulcer Measurement Start: 07/07/20 10:03 Freq: Status: Active Protocol: Activity Type Activity Date Activity User E-Sign Co-Sign Detail Recorded Client Recorded Date Recorded By Document 07/14/20 10:10 [facility] [id number] 07/14/20 10:21 [facility] 07/14/20 10:10 Wound Center Nurse 1 [Ulcer Assessment] #4 left medial hallux -Combined with other wound No -Current Size (cm) - Length 0.1 -Current Size (cm) - Width 0.1 -Current Size (cm) - Depth 0.1 -Total Square Cm 0.01 -Epithelialization Large 67-100% #3 LEFT 4TH METATARSAL FOOT -Combined with other wound No -Current Size (cm) - Length 0.1 -Current Size (cm) - Width 0.1 -Current Size (cm) - Depth 0.1 -Total Square Cm 0.01 -Epithelialization Large 67-100% #2-LEFT 1ST METATARSAL FOOT -Combined with other wound No -Current Size (cm) - Length 0.4 -Current Size (cm) - Width 0.6 -Current Size (cm) - Depth 0.4 -Total Square Cm 0.24 -Photo Taken No -Epithelialization None Present -Tunneling No -Undermining/Tunneling No -Circular Undermining No -Exudate Amt Medium -Exudate Type Serosanguineous -Wound Margin Distinct, Outline Attached -Granulation Amt Small (1-33%) -Granulation Quality [place] -Slough/Fibrin Yes -Necrosis Amt Large (67-100%) -Necrotic Tissue Type Adherent Slough -Structure Exposed Bone -Texture (Анна-wound Skin Appearance) Assessed,Callus ,Scarring -Moisture (Анна-wound Skin Appearance Assessed ) -Color (Анна-wound Skin Appearance) Assessed -Temperature (Анна-wound Skin No Abnormality Appearance) (Pt Warm) -Tenderness on Palpation (Анна-wound No Skin Appearance) -Ulcer Cleansing Rinsed/ Irrigated with Saline -Foul Odor after Cleansing No -Anesthetic Used 5% Lidocaine Gel WC - Nurse 2 - General Ulcer CM Notes Start: 07/07/20 10:03 Freq: Status: Active Protocol: Activity Type Activity Date Activity User E-Sign Co-Sign Detail Recorded Client Recorded Date Recorded By Document 07/14/20 11:11 [facility] [id number] 07/14/20 11:16 REJI 07/14/20 11:11 Wound Center Nurse 2 [Procedure/Treatment] #4 left medial hallux -Correct Patient No -Correct Side, Site, Position No -Correct Procedure No -Procedure Performed No -Post Debridement (cm) - Length 0 -Post Debridement (cm) - Width 0 -Post Debridement (cm) - Depth 0 -Total Square (Post) (cm) 0 -Area of Debridement (cm) - Length 0 -Area of Debridement (cm) - Width 0 -Total Square (Area) (cm) 0 -Wound/Ulcer Outcome Healed- Epithelialized #3 LEFT 4TH METATARSAL FOOT -Time 11:12 -Correct Patient Yes -Correct Side, Site, Position Yes -Correct Procedure Yes -Procedure Performed Yes -Type of Procedure Debridement -Clinical Debridement Subcutaneous -Tissue Removed Subcutaneous -Post Debridement (cm) - Length 0.1 -Post Debridement (cm) - Width 0.1 -Post Debridement (cm) - Depth 0.1 -Total Square (Post) (cm) 0.01 -Area of Debridement (cm) - Length 0.1 -Area of Debridement (cm) - Width 0.1 -Total Square (Area) (cm) 0.01 -Tunneling No -Undermining/Tunneling No -Circular Undermining No -Wound/Ulcer Outcome Not Healed -Ulcer Cleansing Rinsed/ Irrigated with Saline -Foul Odor after Cleansing No -Bioengineered Tissue No -Bleeding Controlled with Pressure -Offloading Yes -Type of Offloading Surgical Shoe -Treatment Response Procedure Tolerated Well -Debridement - Subq, 1st 20sq cm No #2-LEFT 1ST METATARSAL FOOT -Time 11:13 -Correct Patient Yes -Correct Side, Site, Position Yes -Correct Procedure Yes -Procedure Performed Yes -Type of Procedure Debridement -Clinical Debridement Subcutaneous -Tissue Removed Subcutaneous -Post Debridement (cm) - Length 0.6 -Post Debridement (cm) - Width 0.5 -Post Debridement (cm) - Depth 0.4 -Total Square (Post) (cm) 0.30 -Area of Debridement (cm) - Length 0.6 -Area of Debridement (cm) - Width 0.5 -Total Square (Area) (cm) 0.30 -Tunneling No -Undermining/Tunneling No -Circular Undermining No -Wound/Ulcer Outcome Not Healed -Ulcer Cleansing Rinsed/ Irrigated with Saline -Foul Odor after Cleansing No -Bioengineered Tissue No -Bleeding Controlled with Pressure -Offloading Yes -Type of Offloading Surgical Shoe -Treatment Response Procedure Tolerated Well -Debridement - Subq, 1st 20sq cm Yes [See Physician Procedure note for Specifics] WC - Nurse 3 - General Ulcer D/C NN Start: 07/07/20 10:03 Freq: Status: Active Protocol: Activity Type Activity Date Activity User E-Sign Co-Sign Detail Recorded Client Recorded Date Recorded By Document 07/14/20 11:35 MS [id number] 07/14/20 11:36 MS 07/14/20 11:35 Wound Care Nurse 3 [Wound Dressing] #3 LEFT 4TH METATARSAL FOOT -Ulcer Cleansing Rinsed/ Irrigated with Saline -Primary Dressing Applied Promogran -Primary Dressing Covered/Secured Dry Gauze & with Roll Gauze, Secured with Tape -Promogran 0 #2-LEFT 1ST METATARSAL FOOT -Ulcer Cleansing Rinsed/ Irrigated with Saline -Primary Dressing Applied Promogran -Promogran 0 Pain Scale: 0-10 Numeric [Pain] -Is Patient Pain Free? Yes - Visit Discharge [Visit Discharge Information] -Discharge Condition Stable -Ambulatory Status Ambulatory -Medication Reconcilliation completed No & provided to patient/care provider -Clinical Summary of Care Provided Yes Musculoskeletal: Tenderness, - - fat pat atrophy with easily palpable metatarsal head Neurological: Sensory exam intact to light touch and pain Psych/Mental Status: Normal Affect, Appropriate Debridement Note Post-Debridement Measurements/Treatment - Nurse 2 - General Ulcer CM Notes Start: 07/07/20 10:03 Freq: Status: Active Protocol: Activity Type Activity Date Activity User E-Sign Co-Sign Detail Recorded Client Recorded Date Recorded By Document 07/07/20 10:21 [id number] 07/07/20 10:28 Document 07/14/20 11:11 [id number] 07/14/20 11:16 07/07/20 07/14/20 10:21 11:11 Wound Center Nurse 2 #4 left medial hallux -Time 10:21 -Correct Patient Yes No -Correct Side, Site, Position Yes No -Correct Procedure Yes No -Procedure Performed Yes No -Type of Procedure Debridement -Clinical Debridement Subcutaneous -Tissue Removed Subcutaneous -Post Debridement (cm) - Length 0.2 0 -Post Debridement (cm) - Width 0.1 0 -Post Debridement (cm) - Depth 0.1 0 -Total Square (Post) (cm) 0.02 0 -Area of Debridement (cm) - Length 0.2 0 -Area of Debridement (cm) - Width 0.1 0 -Total Square (Area) (cm) 0.02 0 -Tunneling No -Undermining/Tunneling No -Circular Undermining No -Wound/Ulcer Outcome Not Healed Healed- Epithelialized -Ulcer Cleansing Rinsed/ Irrigated with Saline -Foul Odor after Cleansing No -Bioengineered Tissue No -Bleeding Controlled with Pressure -Offloading Yes -Type of Offloading Surgical Shoe -Treatment Response Procedure Tolerated Well -Debridement - Subq, 1st 20sq cm Yes #3 LEFT 4TH METATARSAL FOOT -Time 10:24 11:12 -Correct Patient Yes Yes -Correct Side, Site, Position Yes Yes -Correct Procedure Yes Yes -Procedure Performed Yes Yes -Type of Procedure Debridement Debridement -Clinical Debridement Subcutaneous Subcutaneous -Tissue Removed Subcutaneous Subcutaneous -Post Debridement (cm) - Length 0.4 0.1 -Post Debridement (cm) - Width 0.3 0.1 -Post Debridement (cm) - Depth 0.1 0.1 -Total Square (Post) (cm) 0.12 0.01 -Area of Debridement (cm) - Length 0.4 0.1 -Area of Debridement (cm) - Width 0.3 0.1 -Total Square (Area) (cm) 0.12 0.01 -Tunneling No No -Undermining/Tunneling No No -Circular Undermining No No -Wound/Ulcer Outcome Not Healed Not Healed -Ulcer Cleansing Rinsed/ Rinsed/ Irrigated with Irrigated with Saline Saline -Foul Odor after Cleansing No No -Bioengineered Tissue No No -Bleeding Controlled with Pressure Pressure -Offloading Yes Yes -Type of Offloading Surgical Shoe Surgical Shoe -Treatment Response Procedure Procedure Tolerated Well Tolerated Well -Debridement - Subq, 1st 20sq cm No No #2-LEFT 1ST METATARSAL FOOT -Time 10:24 11:13 -Correct Patient Yes Yes -Correct Side, Site, Position Yes Yes -Correct Procedure Yes Yes -Procedure Performed Yes Yes -Type of Procedure Debridement Debridement -Clinical Debridement Subcutaneous Subcutaneous -Tissue Removed Subcutaneous Subcutaneous -Post Debridement (cm) - Length 0.5 0.6 -Post Debridement (cm) - Width 0.8 0.5 -Post Debridement (cm) - Depth 0.6 0.4 -Total Square (Post) (cm) 0.40 0.30 -Area of Debridement (cm) - Length 0.5 0.6 -Area of Debridement (cm) - Width 0.8 0.5 -Total Square (Area) (cm) 0.40 0.30 -Tunneling No No -Undermining/Tunneling No No -Circular Undermining No No -Wound/Ulcer Outcome Not Healed Not Healed -Ulcer Cleansing Rinsed/ Rinsed/ Irrigated with Irrigated with Saline Saline -Foul Odor after Cleansing No No -Bioengineered Tissue No No -Bleeding Controlled with Pressure Pressure -Offloading Yes Yes -Type of Offloading Surgical Shoe Surgical Shoe -Treatment Response Procedure Procedure Tolerated Well Tolerated Well -Debridement - Subq, 1st 20sq cm No Yes Pain Scale: 0-10 Numeric Is Patient Pain Free? Yes WC - Nurse 3 - General Ulcer D/C NN Start: 07/07/20 10:03 Freq: Status: Active Protocol: Activity Type Activity Date Activity User E-Sign Co-Sign Detail Recorded Client Recorded Date Recorded By Document 07/07/20 10:30 REJI [id number] 07/07/20 14:02 REJI Document 07/14/20 11:35 MS [id number] 07/14/20 11:36 MS 07/07/20 07/14/20 10:30 11:35 Wound Care Nurse 3 #4 left medial hallux -Ulcer Cleansing Rinsed/ Irrigated with Saline -Foul Odor after Cleansing No -Primary Dressing Applied Promogran [place] -Primary Dressing Covered/Secured with Dry Gauze & Roll Gauze, Secured with Tape -Promogran [place]en [place] 0 #3 LEFT 4TH METATARSAL FOOT -Ulcer Cleansing Rinsed/ Rinsed/ Irrigated with Irrigated with Saline Saline -Foul Odor after Cleansing No -Primary Dressing Applied Promogran Promogran [place]en Matter -Primary Dressing Covered/Secured with Dry Gauze & Dry Gauze & Roll Gauze, Roll Gauze, Secured with Secured with Tape Tape -Promogran 0 -Promogran Yen [place] 0 #2-LEFT 1ST METATARSAL FOOT -Ulcer Cleansing Rinsed/ Rinsed/ Irrigated with Irrigated with Saline Saline -Foul Odor after Cleansing No -Primary Dressing Applied [place] Promogran -Primary Dressing Covered/Secured with Dry Gauze & Roll Gauze, Secured with Tape -Promogran 0 -[place] 0 Pain Scale: 0-10 Numeric Is Patient Pain Free? Yes Yes - Visit Discharge Discharge Condition Stable Stable Ambulatory Status Ambulatory Ambulatory Transportation Private Auto Accompanied by Medication Reconcilliation completed & Yes No provided to patient/care provider Clinical Summary of Care Provided Yes Yes Wound debrided: sub 1st metatarsal head Laterality: Left Wound Grade/Stage: pressure 4 Type of Debridement: Excisional debridement Anesthesia Used: 4% Lidocaine Solution Depth: to bone - debrided to sub q Percentage of wound debrided: 100 Instrument Used: #15 blade Tissue Removed: Tissue removed includes fibrous, devitalized, biofilm, and slough tissue Severity: Fat Layer Exposed - bone exposed debrided to fat layer Amount of bleeding with debridement: Mild Bleeding Controlled with: Pressure Patient tolerated procedure well - Additional Wound Wound debrided: sub 4th metatarsal head Laterality: Left Wound Grade/Stage: pressure 2 Type of Debridement: Excisional debridement Anesthesia Used: 4% Lidocaine Solution Depth: in the subcutaneous layer Percentage of wound debrided: 100 Instrument Used: #15 blade Tissue Removed: Tissue removed includes fibrous, devitalized, biofilm, and slough tissue Severity: Fat Layer Exposed Amount of bleeding with debridement: Mild Bleeding Controlled with: Pressure Patient tolerated procedure: Patient tolerated procedure well Assessment/Plan Active Problems Pressure ulcer of toe of left foot, stage 4 (Chronic) Pressure ulcer of left foot, stage 3 (Chronic) Osteomyelitis (Acute) Delayed wound healing (Chronic) Steroid long-term use (Chronic) Rheumatoid arthritis (Chronic) Assessment: Stage 4 pressure ulcer left plantar foot 1st metatarsal head. Stage 2 pressure ulcer left plantar foot 4th metatarsal head. Stage 3 pressure ulcer left medial 1st metatarsal-healed. osteomyelitis 1st metatarsal left foot. Rheumatoid arthritis. Chronic immunosuppression. Chronic prednisone use Plan: Patient seen and examined. Kylah's ulcers were evaluated and debrided today at the wound center after verbal consent obtained. Plantar first metatarsal wound has easily bone exposed. Xray 05/29/2020 did not show osteomyelitis. Given clilnical appearance MRI was ordered. MRI 06/25/20 showed evidence of osteomyelitis to diaphysis of 1st metatarsal. Discussed that bone is noted to be infected that surgical intervention with removal of the infected bone with amputation versus long-term course of IV antibiotics. Reviewed the risks and benefits of each option. Patient is reluctant to have an amputation. She would like to try antibiotics first. Dr Davis in Infectious disease saw patient and prescribed cephalexin and doxycycline for treatment. Cultures obtained 06/30/2020 did not show any growth. Possible previous antibiotics patient was on have cleared up skin infection but bone infection may remain. Discussed that her toes are on the cool side and she has not had any blood flow studies since 2017. LEAS 06/30/20 showed moderate distal small vessle disease bilaterally at the digits. The left foot was noted to have biphasic pulses with CRUZ of 1.27 and TBI of 0.37. The left PT was noncompressible. The right foot PT and DP were noncomressible and TBI of 0.4 with triphasic and biphasic pulsibles. Patient is scheduled for procedure with Dr Oseguera 07/21/20. The etiology of her ulcers appears to be from pressure at sites of metatarsal heads as there is significant fat pad atrophy. Discussed with the patient the importance of proper shoe gear with good padding to supplement lost fat pad. This is most likey due to her rheumatoid arthritis, chronic prednisone treatment may also have a role in the nonhealing of the ulcers. Offloading was discussed, patient relates that she has a surgical shoe with forefoot offloaded. Patient presents today wearing the surgical shoe with offloading pad. Recommend patient wear surgical shoe at this time. She was advised to try to avoid standing and being on her feet for long periods and to elevate her feet as much as possible. Encouraged protein rich diet and protein supplements. Advised to call with questions or concerns. Continue wound care to foot ulcerations. Follow-up in 2 weeks as she has her vascular appointment next week. This note was generated with [employer] dictation software. It may contain incorrect words, spelling, and punctuation that were not noted in checking the note before signing.
[2020-07-28 09:34] VITALS: BP 186/89; PULSE 89; RESP 16; TEMP 36.9; BMI 18.6
--- NOTE | 2020-07-28 11:07 | PCM.WC.PN ---
(1) Osteomyelitis Status: Acute Qualifiers: Code(s): M86.9 - Osteomyelitis, unspecified (2) Pressure ulcer of left foot, stage 3 Status: Chronic Code(s): L89.893 - Pressure ulcer of other site, stage 3 (3) Pressure ulcer of toe of left foot, stage 4 Status: Chronic Code(s): L89.894 - Pressure ulcer of other site, stage 4 (4) Delayed wound healing Status: Chronic Code(s): T14.8XXD - Other injury of unspecified body region, subsequent encounter (5) Steroid long-term use Status: Chronic (6) Rheumatoid arthritis Status: Chronic Qualifiers: Rheumatoid arthritis location: foot Laterality: bilateral Code(s): M06.9 - Rheumatoid arthritis, unspecified Type of Wound Date of Service: 08/01/20 Chief Complaint: Pressure ulcer plantar left great toe/metatarsal History of Wound: Kylah is a 75-year-old female who was referred here for treatment of an ulcer at the base of her great toe at her metatarsal head from Dr. Poe, her gas specialist. She has been receiving treatment to this area for the last [address] Poe has attempted to debride and close it surgically with sutures but it reopened and it hasn't healed. She has been seeing him weekly and has been using silvadene and Aquacel Ag to treat her ulcer with dressing changes once weekly and sometimes once in between if there is a lot of drainage. 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 Patient has had a recent culture on 05/11/20, positive for Staphylococcus lugendenosis. Another culture was taken which demonstrated staph epididymis. With most recent culture taken 07/01/2020 with no growth seen. She has previously demonstrated an apparent allergy to collagen hydrogel. The patient has had vascular studies, without evidence of significant superficial vein incompetence in the left lower extremity in 2017. Her noninvasive lower extremity arterial study reveals normal ankle?brachial indices bilaterally in 2017. New studies showed moderate distal small vessel disease bilaterally at the digits with some non compressible vessels. She had MRI on 06/25/20 which showed osteomyelitis to 1st metatarsal. Patient saw Dr Clements who started her on cephalexin and doxycycline to treat her osteomyelitis. She is also scheduled to have a procedure with Dr Oseguera 07/21/20. The patient is noted to be on prednisone and methotrexate for her rheumatoid arthritis. These are acknowledged to be possible inhibitors to wound healing. She denies any systemic signs of infection such as fever, chills, erythema, increased drainage, nausea, vomiting. Progress of Wound: wounds are stable with some improvement noted to sub 4th metatarsal ulceration and hallux ulcer has healed. No significant change to subfirst metatarsal ulceration Subjective: Patient seen and examined resting comfortably. Patient denies any new pedal complaints. Patient denies any nausea, fever, chills, chest pain, shortness of breath, cough, streaking, purulence, vomiting. - Physical Exam Vital Signs Temp Pulse Resp BP 98.5 F 89 16 186/89 H 07/28/20 09:34 07/28/20 09:34 07/28/20 09:34 07/28/20 09:34 General: Alert, Oriented x3 HEENT: Atraumatic Extremities: No clubbing, No cyanosis, No edema, Capillary Refill Less than 3 Seconds, No Calf Tenderness, Peripheral Pulses Normal, Tenderness - to ulcerations Skin: Ulcer/ Wound - sub 1 and 4th metatarsal head ulceration left. No malodor, erythema, purulence, streaking, or other signs of infection. Skin is atrophic and hairless. Sub 1 ulceration probes to bone. Medial hallux wound healed. Wound Measurements and Assessment WC - Nurse 1 - General Ulcer Measurement Start: 07/07/20 10:03 Freq: Status: Active Protocol: Activity Type Activity Date Activity User E-Sign Co-Sign Detail Recorded Client Recorded Date Recorded By Document 07/28/20 09:34 REJI [id number] 07/28/20 09:40 REJI 07/28/20 09:34 Wound Center Nurse 1 [Ulcer Assessment] #3 LEFT 4TH METATARSAL FOOT -Combined with other wound No -Current Size (cm) - Length 0.1 -Current Size (cm) - Width 0.1 -Current Size (cm) - Depth 0.1 -Total Square Cm 0.01 -Epithelialization None Present -Tunneling No -Undermining/Tunneling No -Circular Undermining No -Exudate Amt None Present -Wound Margin Distinct, Outline Attached -Granulation Amt None Present (0 %) -Slough/Fibrin Yes -Necrosis Amt Large (67-100%) -Necrotic Tissue Type Eschar -Texture (Анна-wound Skin Appearance) Assessed, Scarring -Moisture (Анна-wound Skin Appearance Assessed,Dry/ ) Scaly -Color (Анна-wound Skin Appearance) Assessed -Temperature (Анна-wound Skin No Abnormality Appearance) (Pt Warm) -Tenderness on Palpation (Анна-wound No Skin Appearance) -Ulcer Cleansing Rinsed/ Irrigated with Saline -Foul Odor after Cleansing No -Anesthetic Used 5% Lidocaine Gel #2-LEFT 1ST METATARSAL FOOT -Combined with other wound No -Current Size (cm) - Length 0.2 -Current Size (cm) - Width 0.2 -Current Size (cm) - Depth 0.4 -Total Square Cm 0.04 -Photo Taken No -Epithelialization None Present -Tunneling No -Undermining/Tunneling No -Circular Undermining No -Exudate Amt Small -Exudate Type Purulent -Wound Margin Distinct, Outline Attached -Granulation Amt None Present (0 %) -Slough/Fibrin Yes -Necrosis Amt Large (67-100%) -Necrotic Tissue Type Adherent Slough -Texture (Анна-wound Skin Appearance) Assessed,Callus -Moisture (Анна-wound Skin Appearance Assessed,Dry/ ) Scaly -Color (Анна-wound Skin Appearance) Assessed -Temperature (Анна-wound Skin No Abnormality Appearance) (Pt Warm) -Tenderness on Palpation (Анна-wound No Skin Appearance) -Ulcer Cleansing Rinsed/ Irrigated with Saline -Foul Odor after Cleansing No -Anesthetic Used 5% Lidocaine Gel WC - Nurse 2 - General Ulcer CM Notes Start: 07/07/20 10:03 Freq: Status: Active Protocol: Activity Type Activity Date Activity User E-Sign Co-Sign Detail Recorded Client Recorded Date Recorded By Document 07/28/20 09:46 REJI [id number] 07/28/20 09:51 REJI 07/28/20 09:46 Wound Center Nurse 2 [Procedure/Treatment] #3 LEFT 4TH METATARSAL FOOT -Correct Patient No -Correct Side, Site, Position No -Correct Procedure No -Procedure Performed No -Post Debridement (cm) - Length 0 -Post Debridement (cm) - Width 0 -Post Debridement (cm) - Depth 0 -Total Square (Post) (cm) 0 -Area of Debridement (cm) - Length 0 -Area of Debridement (cm) - Width 0 -Total Square (Area) (cm) 0 -Wound/Ulcer Outcome Healed- Epithelialized #2-LEFT 1ST METATARSAL FOOT -Time 09:46 -Correct Patient Yes -Correct Side, Site, Position Yes -Correct Procedure Yes -Procedure Performed Yes -Type of Procedure Debridement -Clinical Debridement Subcutaneous -Tissue Removed Subcutaneous -Post Debridement (cm) - Length 0.4 -Post Debridement (cm) - Width 0.4 -Post Debridement (cm) - Depth 0.4 -Total Square (Post) (cm) 0.16 -Area of Debridement (cm) - Length 0.4 -Area of Debridement (cm) - Width 0.4 -Total Square (Area) (cm) 0.16 -Tunneling No -Undermining/Tunneling No -Circular Undermining No -Wound/Ulcer Outcome Not Healed -Ulcer Cleansing Rinsed/ Irrigated with Saline -Foul Odor after Cleansing No -Bioengineered Tissue No -Bleeding Controlled with Pressure -Offloading Yes -Type of Offloading Surgical Shoe -Treatment Response Procedure Tolerated Well -Debridement - Subq, 1st 20sq cm Yes [See Physician Procedure note for Specifics] Pain Scale: 0-10 Numeric [Pain] -Is Patient Pain Free? Yes - Nurse 3 - General Ulcer D/C NN Start: 07/07/20 10:03 Freq: Status: Active Protocol: Activity Type Activity Date Activity User E-Sign Co-Sign Detail Recorded Client Recorded Date Recorded By Document 07/28/20 09:59 [facility] [id number] 07/28/20 10:00 [facility] 07/28/20 09:59 Wound Care Nurse 3 [Wound Dressing] #2-LEFT 1ST METATARSAL FOOT -Ulcer Cleansing Rinsed/ Irrigated with Saline -Foul Odor after Cleansing No -Primary Dressing Applied C Hydrogel ($) -Primary Dressing Covered/Secured Dry Gauze & with Roll Gauze, Secured with Tape [Post Procedure Tolerated] -Treatment Response Procedure Tolerated Well Pain Scale: 0-10 Numeric [Pain] -Is Patient Pain Free? Yes - Visit Discharge [Visit Discharge Information] -Discharge Condition Stable -Ambulatory Status Ambulatory -Transportation Private Auto Musculoskeletal: Tenderness - 2 ulceration sites, - - Fat pad atrophy noted secondary to rheumatoid arthritis with easily palpable metatarsal heads with pain on palpation Neurological: - - Decreased epicritic sensation Psych/Mental Status: Normal Affect, Appropriate Debridement Note Post-Debridement Measurements/Treatment - Nurse 2 - General Ulcer CM Notes Start: 07/07/20 10:03 Freq: Status: Active Protocol: Activity Type Activity Date Activity User E-Sign Co-Sign Detail Recorded Client Recorded Date Recorded By Document 07/07/20 10:21 REJI [id number] 07/07/20 10:28 JF Document 07/14/20 11:11 JF [id number] 07/14/20 11:16 JF Document 07/28/20 09:46 [id number] 07/28/20 09:51 JF 07/07/20 07/14/20 07/28/20 10:21 11:11 09:46 Wound Center Nurse 2 #4 left medial hallux -Time 10:21 -Correct Patient Yes No -Correct Side, Site, Position Yes No -Correct Procedure Yes No -Procedure Performed Yes No -Type of Procedure Debridement -Clinical Debridement Subcutaneous -Tissue Removed Subcutaneous -Post Debridement (cm) - Length 0.2 0 -Post Debridement (cm) - Width 0.1 0 -Post Debridement (cm) - Depth 0.1 0 -Total Square (Post) (cm) 0.02 0 -Area of Debridement (cm) - Length 0.2 0 -Area of Debridement (cm) - Width 0.1 0 -Total Square (Area) (cm) 0.02 0 -Tunneling No -Undermining/Tunneling No -Circular Undermining No -Wound/Ulcer Outcome Not Healed Healed- Epithelialized -Ulcer Cleansing Rinsed/ Irrigated with Saline -Foul Odor after Cleansing No -Bioengineered Tissue No -Bleeding Controlled with Pressure -Offloading Yes -Type of Offloading Surgical Shoe -Treatment Response Procedure Tolerated Well -Debridement - Subq, 1st 20sq cm Yes #3 LEFT 4TH METATARSAL FOOT -Time 10:24 11:12 -Correct Patient Yes Yes No -Correct Side, Site, Position Yes Yes No -Correct Procedure Yes Yes No -Procedure Performed Yes Yes No -Type of Procedure Debridement Debridement -Clinical Debridement Subcutaneous Subcutaneous -Tissue Removed Subcutaneous Subcutaneous -Post Debridement (cm) - Length 0.4 0.1 0 -Post Debridement (cm) - Width 0.3 0.1 0 -Post Debridement (cm) - Depth 0.1 0.1 0 -Total Square (Post) (cm) 0.12 0.01 0 -Area of Debridement (cm) - Length 0.4 0.1 0 -Area of Debridement (cm) - Width 0.3 0.1 0 -Total Square (Area) (cm) 0.12 0.01 0 -Tunneling No No -Undermining/Tunneling No No -Circular Undermining No No -Wound/Ulcer Outcome Not Healed Not Healed Healed- Epithelialized -Ulcer Cleansing Rinsed/ Rinsed/ Irrigated with Irrigated with Saline Saline -Foul Odor after Cleansing No No -Bioengineered Tissue No No -Bleeding Controlled with Pressure Pressure -Offloading Yes Yes -Type of Offloading Surgical Shoe Surgical Shoe -Treatment Response Procedure Procedure Tolerated Well Tolerated Well -Debridement - Subq, 1st 20sq cm No No #2-LEFT 1ST METATARSAL FOOT -Time 10:24 11:13 09:46 -Correct Patient Yes Yes Yes -Correct Side, Site, Position Yes Yes Yes -Correct Procedure Yes Yes Yes -Procedure Performed Yes Yes Yes -Type of Procedure Debridement Debridement Debridement -Clinical Debridement Subcutaneous Subcutaneous Subcutaneous -Tissue Removed Subcutaneous Subcutaneous Subcutaneous -Post Debridement (cm) - Length 0.5 0.6 0.4 -Post Debridement (cm) - Width 0.8 0.5 0.4 -Post Debridement (cm) - Depth 0.6 0.4 0.4 -Total Square (Post) (cm) 0.40 0.30 0.16 -Area of Debridement (cm) - Length 0.5 0.6 0.4 -Area of Debridement (cm) - Width 0.8 0.5 0.4 -Total Square (Area) (cm) 0.40 0.30 0.16 -Tunneling No No No -Undermining/Tunneling No No No -Circular Undermining No No No -Wound/Ulcer Outcome Not Healed Not Healed Not Healed -Ulcer Cleansing Rinsed/ Rinsed/ Rinsed/ Irrigated with Irrigated with Irrigated with Saline Saline Saline -Foul Odor after Cleansing No No No -Bioengineered Tissue No No No -Bleeding Controlled with Pressure Pressure Pressure -Offloading Yes Yes Yes -Type of Offloading Surgical Shoe Surgical Shoe Surgical Shoe -Treatment Response Procedure Procedure Procedure Tolerated Well Tolerated Well Tolerated Well -Debridement - Subq, 1st 20sq cm No Yes Yes Pain Scale: 0-10 Numeric Is Patient Pain Free? Yes Yes WC - Nurse 3 - General Ulcer D/C NN Start: 07/07/20 10:03 Freq: Status: Active Protocol: Activity Type Activity Date Activity User E-Sign Co-Sign Detail Recorded Client Recorded Date Recorded By Document 07/07/20 10:30 [id number] 07/07/20 14:02 Document 07/14/20 11:35 MS [id number] 07/14/20 11:36 MS Document 07/28/20 09:59 [facility] [id number] 07/28/20 10:00 [facility] 07/07/20 07/14/20 07/28/20 10:30 11:35 09:59 Wound Care Nurse 3 #4 left medial hallux -Ulcer Cleansing Rinsed/ Irrigated with Saline -Foul Odor after Cleansing No -Primary Dressing Applied Promogran Yen Matter -Primary Dressing Covered/Secured with Dry Gauze & Roll Gauze, Secured with Tape -Promogran Yen Matter 0 #3 LEFT 4TH METATARSAL FOOT -Ulcer Cleansing Rinsed/ Rinsed/ Irrigated with Irrigated with Saline Saline -Foul Odor after Cleansing No -Primary Dressing Applied Promogran Promogran Yen Matter -Primary Dressing Covered/Secured with Dry Gauze & Dry Gauze & Roll Gauze, Roll Gauze, Secured with Secured with Tape Tape -Promogran 0 -Promogran Yen Matter 0 #2-LEFT 1ST METATARSAL FOOT -Ulcer Cleansing Rinsed/ Rinsed/ Rinsed/ Irrigated with Irrigated with Irrigated with Saline Saline Saline -Foul Odor after Cleansing No No -Primary Dressing Applied Silvercel Promogran C Hydrogel ($) -Primary Dressing Covered/Secured with Dry Gauze & Dry Gauze & Roll Gauze, Roll Gauze, Secured with Secured with Tape Tape -Promogran 0 -Silvercel 0 Treatment Response Procedure Tolerated Well Pain Scale: 0-10 Numeric Is Patient Pain Free? Yes Yes Yes WC - Visit Discharge Discharge Condition Stable Stable Stable Ambulatory Status Ambulatory Ambulatory Ambulatory Transportation Private Auto Private Auto Accompanied by Medication Reconcilliation completed & Yes No provided to patient/care provider Clinical Summary of Care Provided Yes Yes Wound debrided: Subfirst metatarsal Laterality: Left Type of Debridement: Excisional debridement Anesthesia Used: 4% Lidocaine Solution Depth: to bone Percentage of wound debrided: 100 Instrument Used: 3mm curette Tissue Removed: Tissue removed includes fibrous, devitalized, biofilm, and slough tissue Severity: Necrosis of Bone - Debrided to subcu Amount of bleeding with debridement: Mild Bleeding Controlled with: Pressure Patient tolerated procedure well - Additional Wound Wound debrided: Subfourth metatarsal Laterality: Left Type of Debridement: Excisional debridement Anesthesia Used: 4% Lidocaine Solution Depth: in the subcutaneous layer Percentage of wound debrided: 100 Instrument Used: 3mm curette Tissue Removed: Tissue removed includes fibrous, devitalized, biofilm, slough tissue, callu Severity: Fat Layer Exposed Amount of bleeding with debridement: Mild Bleeding Controlled with: Pressure Patient tolerated procedure: Patient tolerated procedure well Assessment/Plan Active Problems Pressure ulcer of toe of left foot, stage 4 (Chronic) Pressure ulcer of left foot, stage 3 (Chronic) Osteomyelitis (Acute) Delayed wound healing (Chronic) Steroid long-term use (Chronic) Rheumatoid arthritis (Chronic) Assessment: Stage 4 pressure ulcer left plantar foot 1st metatarsal head. Stage 2 pressure ulcer left plantar foot 4th metatarsal head. Stage 3 pressure ulcer left medial 1st metatarsal-healed. osteomyelitis 1st metatarsal left foot. Rheumatoid arthritis. Chronic immunosuppression. Chronic prednisone use Plan: Patient seen and examined. Kylah's ulcers were evaluated and debrided today at the wound center after verbal consent obtained. Plantar first metatarsal wound has easily bone exposed. Xray 05/29/2020 did not show osteomyelitis. Given clilnical appearance MRI was ordered. MRI 06/25/20 showed evidence of osteomyelitis to diaphysis of 1st metatarsal. Discussed that bone is noted to be infected that surgical intervention with removal of the infected bone with amputation versus long-term course of IV antibiotics. Reviewed the risks and benefits of each option. Patient is reluctant to have an amputation. She would like to try antibiotics first. Dr Davis in Infectious disease saw patient and prescribed cephalexin and doxycycline for treatment. Cultures obtained 06/30/2020 did not show any growth. Possible previous antibiotics patient was on have cleared up skin infection but bone infection may remain. Discussed that her toes are on the cool side and she has not had any blood flow studies since 2017. LEAS 06/30/20 showed moderate distal small vessle disease bilaterally at the digits. The left foot was noted to have biphasic pulses with CRUZ of 1.27 and TBI of 0.37. The left PT was noncompressible. The right foot PT and DP were noncomressible and TBI of 0.4 with triphasic and biphasic pulsibles. Patient had procedure with Dr Oseguera 07/21/20. Patient reports that the procedure went well. We will try to obtain these records. The etiology of her ulcers appears to be from pressure at sites of metatarsal heads as there is significant fat pad atrophy. Discussed with the patient the importance of proper shoe gear with good padding to supplement lost fat pad. This is most likey due to her rheumatoid arthritis, chronic prednisone treatment may also have a role in the nonhealing of the ulcers. Offloading was discussed, patient relates that she has a surgical shoe with forefoot offloaded. Patient presents today wearing the surgical shoe with offloading pad. Recommend patient wear surgical shoe at this time. She was advised to try to avoid standing and being on her feet for long periods and to elevate her feet as much as possible. Encouraged protein rich diet and protein supplements. Advised to call with questions or concerns. Continue wound care to foot ulcerations. Follow-up in 1 week. This note was generated with [employer] dictation software. It may contain incorrect words, spelling, and punctuation that were not noted in checking the note before signing.
[2020-08-04 10:06] VITALS: BP 176/95; PULSE 90; RESP 18; TEMP 36.7; BMI 18.6
--- NOTE | 2020-08-04 10:51 | PN.PCM_ITS ---
(1) Osteomyelitis Status: Acute Qualifiers: Code(s): M86.9 - Osteomyelitis, unspecified (2) Pressure ulcer of left foot, stage 3 Status: Chronic Code(s): L89.893 - Pressure ulcer of other site, stage 3 (3) Pressure ulcer of toe of left foot, stage 4 Status: Chronic Code(s): L89.894 - Pressure ulcer of other site, stage 4 (4) Delayed wound healing Status: Chronic Code(s): T14.8XXD - Other injury of unspecified body region, subsequent encounter (5) Steroid long-term use Status: Chronic (6) Rheumatoid arthritis Status: Chronic Qualifiers: Rheumatoid arthritis location: foot Laterality: bilateral Code(s): M06.9 - Rheumatoid arthritis, unspecified Type of Wound Date of Service: 08/04/20 Chief Complaint: Pressure ulcer plantar left great toe/metatarsal History of Wound: Kylah is a 75-year-old female who was referred here for treatment of an ulcer at the base of her great toe at her metatarsal head from 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 She has been receiving treatment to this area for the last [address] Poe has attempted to debride and close it surgically with sutures but it reopened and it hasn't healed. She has been seeing him weekly and has been using silvadene and Aquacel Ag to treat her ulcer with dressing changes once weekly and sometimes once in between if there is a lot of drainage. 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 Patient has had a recent culture on 05/11/20, positive for Staphylococcus lugendenosis. Another culture was taken which demonstrated staph epididymis. With most recent culture taken 07/01/2020 with no growth seen. She has previously demonstrated an apparent allergy to collagen hydrogel. The patient has had vascular studies, without evidence of significant superficial vein incompetence in the left lower extremity in 2017. Her noninvasive lower extremity arterial study reveals normal ankle?brachial indices bilaterally in 2017. New studies showed moderate distal small vessel disease bilaterally at the digits with some non compressible vessels. She had MRI on 06/25/20 which showed osteomyelitis to 1st metatarsal. Patient saw Dr Clements who started her on cephalexin and doxycycline to treat her osteomyelitis. She is also scheduled to have a procedure with Dr Oseguera 07/21/20. The patient is noted to be on prednisone and methotrexate for her rheumatoid arthritis. These are ack nowledged to be possible inhibitors to wound healing. Progress of Wound: wounds are stable. Sub 4th metatarsal ulceration and hallux ulcer has healed. No significant change to subfirst metatarsal ulceration Subjective: Patient seen and examined resting comfortably. Patient denies any new pedal complaints. Patient denies any nausea, fever, chills, chest pain, shortness of breath, cough, streaking, purulence, vomiting. - Physical Exam Vital Signs Temp Pulse Resp BP 98.1 F 90 18 176/95 H 08/04/20 10:06 08/04/20 10:06 08/04/20 10:06 08/04/20 10:06 General: Alert, Oriented x3 Extremities: No clubbing, No cyanosis, No edema, Capillary Refill Less than 3 Seconds, No Calf Tenderness, Diminished Peripheral Pulses Wound Measurements and Assessment WC - Nurse 1 - General Ulcer Measurement Start: 07/07/20 10:03 Freq: Status: Active Protocol: Activity Type Activity Date Activity User E-Sign Co-Sign Detail Recorded Client Recorded Date Recorded By Document 08/04/20 10:06 DL [id number] 08/04/20 10:11 DL 08/04/20 10:06 Wound Center Nurse 1 [Ulcer Assessment] #2-LEFT 1ST METATARSAL FOOT -Current Size (cm) - Length 0.2 -Current Size (cm) - Width 0.3 -Current Size (cm) - Depth 0.3 -Total Square Cm 0.06 -Photo Taken No -Maximum Distance #2 (cm) 0.2 -Circular Undermining Yes -Exudate Amt Small -Exudate Type Serosanguineous -Wound Margin Distinct, Outline Attached -Granulation Amt Small (1-33%) -Granulation Quality Red -Necrosis Amt Small (1-33%) -Necrotic Tissue Type Adherent Slough -Structure Exposed N/A -Texture (Анна-wound Skin Appearance) Callus,Scarring -Moisture (Анна-wound Skin Appearance No Abnormality ) -Color (Анна-wound Skin Appearance) Hemosiderin Staining -Temperature (Анна-wound Skin No Abnormality Appearance) (Pt Warm) -Tenderness on Palpation (Анна-wound No Skin Appearance) -Ulcer Cleansing Rinsed/ Irrigated with Saline -Foul Odor after Cleansing No -Anesthetic Used 4% Lidocaine Solution - Nurse 2 - General Ulcer CM Notes Start: 07/07/20 10:03 Freq: Status: Active Protocol: Activity Type Activity Date Activity User E-Sign Co-Sign Detail Recorded Client Recorded Date Recorded By Document 08/04/20 10:46 REJI [id number] 08/04/20 10:49 REJI 08/04/20 10:46 Wound Center Nurse 2 [Procedure/Treatment] -Time 10:47 -Correct Patient Yes -Correct Side, Site, Position Yes -Correct Procedure Yes -Procedure Performed Yes -Type of Procedure Debridement -Clinical Debridement Subcutaneous -Tissue Removed Subcutaneous -Post Debridement (cm) - Length 0.3 -Post Debridement (cm) - Width 0.3 -Post Debridement (cm) - Depth 0.2 -Total Square (Post) (cm) 0.09 -Area of Debridement (cm) - Length 0.3 -Area of Debridement (cm) - Width 0.3 -Total Square (Area) (cm) 0.09 -Tunneling No -Undermining/Tunneling No -Circular Undermining No -Wound/Ulcer Outcome Not Healed -Ulcer Cleansing Rinsed/ Irrigated with Saline -Foul Odor after Cleansing No -Bioengineered Tissue No -Bleeding Controlled with Pressure -Offloading Yes -Type of Offloading Surgical Shoe -Treatment Response Procedure Tolerated Well -Debridement - Subq, 1st 20sq cm Yes [See Physician Procedure note for Specifics] Musculoskeletal: Tenderness - sub 1st/4th metatarsal heads, - - fat pad atrophy Neurological: - - some decreased epicritic sensation, largely light touch intact Psych/Mental Status: Normal Affect, Appropriate Debridement Note Post-Debridement Measurements/Treatment - Nurse 2 - General Ulcer CM Notes Start: 07/07/20 10:03 Freq: Status: Active Protocol: Activity Type Activity Date Activity User E-Sign Co-Sign Detail Recorded Client Recorded Date Recorded By Document 07/07/20 10:21 REJI [id number] 07/07/20 10:28 Document 07/14/20 11:11 REJI [id number] 07/14/20 11:16 JF Document 07/28/20 09:46 REJI [id number] 07/28/20 09:51 Document 08/04/20 10:46 REJI [id number] 08/04/20 10:49 JF 07/07/20 07/14/20 07/28/20 10:21 11:11 09:46 Wound Center Nurse 2 #4 left medial hallux -Time 10:21 -Correct Patient Yes No -Correct Side, Site, Position Yes No -Correct Procedure Yes No -Procedure Performed Yes No -Type of Procedure Debridement -Clinical Debridement Subcutaneous -Tissue Removed Subcutaneous -Post Debridement (cm) - Length 0.2 0 -Post Debridement (cm) - Width 0.1 0 -Post Debridement (cm) - Depth 0.1 0 -Total Square (Post) (cm) 0.02 0 -Area of Debridement (cm) - Length 0.2 0 -Area of Debridement (cm) - Width 0.1 0 -Total Square (Area) (cm) 0.02 0 -Tunneling No -Undermining/Tunneling No -Circular Undermining No -Wound/Ulcer Outcome Not Healed Healed- Epithelialized -Ulcer Cleansing Rinsed/ Irrigated with Saline -Foul Odor after Cleansing No -Bioengineered Tissue No -Bleeding Controlled with Pressure -Offloading Yes -Type of Offloading Surgical Shoe -Treatment Response Procedure Tolerated Well -Debridement - Subq, 1st 20sq cm Yes #3 LEFT 4TH METATARSAL FOOT -Time 10:24 11:12 -Correct Patient Yes Yes No -Correct Side, Site, Position Yes Yes No -Correct Procedure Yes Yes No -Procedure Performed Yes Yes No -Type of Procedure Debridement Debridement -Clinical Debridement Subcutaneous Subcutaneous -Tissue Removed Subcutaneous Subcutaneous -Post Debridement (cm) - Length 0.4 0.1 0 -Post Debridement (cm) - Width 0.3 0.1 0 -Post Debridement (cm) - Depth 0.1 0.1 0 -Total Square (Post) (cm) 0.12 0.01 0 -Area of Debridement (cm) - Length 0.4 0.1 0 -Area of Debridement (cm) - Width 0.3 0.1 0 -Total Square (Area) (cm) 0.12 0.01 0 -Tunneling No No -Undermining/Tunneling No No -Circular Undermining No No -Wound/Ulcer Outcome Not Healed Not Healed Healed- Epithelialized -Ulcer Cleansing Rinsed/ Rinsed/ Irrigated with Irrigated with Saline Saline -Foul Odor after Cleansing No No -Bioengineered Tissue No No -Bleeding Controlled with Pressure Pressure -Offloading Yes Yes -Type of Offloading Surgical Shoe Surgical Shoe -Treatment Response Procedure Procedure Tolerated Well Tolerated Well -Debridement - Subq, 1st 20sq cm No No #2-LEFT 1ST METATARSAL FOOT -Time 10:24 11:13 09:46 -Correct Patient Yes Yes Yes -Correct Side, Site, Position Yes Yes Yes -Correct Procedure Yes Yes Yes -Procedure Performed Yes Yes Yes -Type of Procedure Debridement Debridement Debridement -Clinical Debridement Subcutaneous Subcutaneous Subcutaneous -Tissue Removed Subcutaneous Subcutaneous Subcutaneous -Post Debridement (cm) - Length 0.5 0.6 0.4 -Post Debridement (cm) - Width 0.8 0.5 0.4 -Post Debridement (cm) - Depth 0.6 0.4 0.4 -Total Square (Post) (cm) 0.40 0.30 0.16 -Area of Debridement (cm) - Length 0.5 0.6 0.4 -Area of Debridement (cm) - Width 0.8 0.5 0.4 -Total Square (Area) (cm) 0.40 0.30 0.16 -Tunneling No No No -Undermining/Tunneling No No No -Circular Undermining No No No -Wound/Ulcer Outcome Not Healed Not Healed Not Healed -Ulcer Cleansing Rinsed/ Rinsed/ Rinsed/ Irrigated with Irrigated with Irrigated with Saline Saline Saline -Foul Odor after Cleansing No No No -Bioengineered Tissue No No No -Bleeding Controlled with Pressure Pressure Pressure -Offloading Yes Yes Yes -Type of Offloading Surgical Shoe Surgical Shoe Surgical Shoe -Treatment Response Procedure Procedure Procedure Tolerated Well Tolerated Well Tolerated Well -Debridement - Subq, 1st 20sq cm No Yes Yes Pain Scale: 0-10 Numeric Is Patient Pain Free? Yes Yes 08/04/20 10:46 Wound Center Nurse 2 #4 left medial hallux -Time -Correct Patient -Correct Side, Site, Position -Correct Procedure -Procedure Performed -Type of Procedure -Clinical Debridement -Tissue Removed -Post Debridement (cm) - Length -Post Debridement (cm) - Width -Post Debridement (cm) - Depth -Total Square (Post) (cm) -Area of Debridement (cm) - Length -Area of Debridement (cm) - Width -Total Square (Area) (cm) -Tunneling -Undermining/Tunneling -Circular Undermining -Wound/Ulcer Outcome -Ulcer Cleansing -Foul Odor after Cleansing -Bioengineered Tissue -Bleeding Controlled with -Offloading -Type of Offloading -Treatment Response -Debridement - Subq, 1st 20sq cm #3 LEFT 4TH METATARSAL FOOT -Time -Correct Patient -Correct Side, Site, Position -Correct Procedure -Procedure Performed -Type of Procedure -Clinical Debridement -Tissue Removed -Post Debridement (cm) - Length -Post Debridement (cm) - Width -Post Debridement (cm) - Depth -Total Square (Post) (cm) -Area of Debridement (cm) - Length -Area of Debridement (cm) - Width -Total Square (Area) (cm) -Tunneling -Undermining/Tunneling -Circular Undermining -Wound/Ulcer Outcome -Ulcer Cleansing -Foul Odor after Cleansing -Bioengineered Tissue -Bleeding Controlled with -Offloading -Type of Offloading -Treatment Response -Debridement - Subq, 1st 20sq cm #2-LEFT 1ST METATARSAL FOOT -Time 10:47 -Correct Patient Yes -Correct Side, Site, Position Yes -Correct Procedure Yes -Procedure Performed Yes -Type of Procedure Debridement -Clinical Debridement Subcutaneous -Tissue Removed Subcutaneous -Post Debridement (cm) - Length 0.3 -Post Debridement (cm) - Width 0.3 -Post Debridement (cm) - Depth 0.2 -Total Square (Post) (cm) 0.09 -Area of Debridement (cm) - Length 0.3 -Area of Debridement (cm) - Width 0.3 -Total Square (Area) (cm) 0.09 -Tunneling No -Undermining/Tunneling No -Circular Undermining No -Wound/Ulcer Outcome Not Healed -Ulcer Cleansing Rinsed/ Irrigated with Saline -Foul Odor after Cleansing No -Bioengineered Tissue No -Bleeding Controlled with Pressure -Offloading Yes -Type of Offloading Surgical Shoe -Treatment Response Procedure Tolerated Well -Debridement - Subq, 1st 20sq cm Yes Pain Scale: 0-10 Numeric Is Patient Pain Free? WC - Nurse 3 - General Ulcer D/C NN Start: 07/07/20 10:03 Freq: Status: Active Protocol: Activity Type Activity Date Activity User E-Sign Co-Sign Detail Recorded Client Recorded Date Recorded By Document 07/07/20 10:30 JF [id number] 07/07/20 14:02 JF Document 07/14/20 11:35 MS [id number] 07/14/20 11:36 MS Document 07/28/20 09:59 [facility] [id number] 07/28/20 10:00 BMF 07/07/20 07/14/20 07/28/20 10:30 11:35 09:59 Wound Care Nurse 3 #4 left medial hallux -Ulcer Cleansing Rinsed/ Irrigated with Saline -Foul Odor after Cleansing No -Primary Dressing Applied Promogran Yen Matter -Primary Dressing Covered/Secured with Dry Gauze & Roll Gauze, Secured with Tape -Promogran Yen Matter 0 #3 LEFT 4TH METATARSAL FOOT -Ulcer Cleansing Rinsed/ Rinsed/ Irrigated with Irrigated with Saline Saline -Foul Odor after Cleansing No -Primary Dressing Applied Promogran Promogran Yen Matter -Primary Dressing Covered/Secured with Dry Gauze & Dry Gauze & Roll Gauze, Roll Gauze, Secured with Secured with Tape Tape -Promogran 0 -Promogran Yen Matter 0 #2-LEFT 1ST METATARSAL FOOT -Ulcer Cleansing Rinsed/ Rinsed/ Rinsed/ Irrigated with Irrigated with Irrigated with Saline Saline Saline -Foul Odor after Cleansing No No -Primary Dressing Applied Silvercel Promogran C Hydrogel ($) -Primary Dressing Covered/Secured with Dry Gauze & Dry Gauze & Roll Gauze, Roll Gauze, Secured with Secured with Tape Tape -Promogran 0 -Silvercel 0 Treatment Response Procedure Tolerated Well Pain Scale: 0-10 Numeric Is Patient Pain Free? Yes Yes Yes WC - Visit Discharge Discharge Condition Stable Stable Stable Ambulatory Status Ambulatory Ambulatory Ambulatory Transportation Private Auto Private Auto Accompanied by Medication Reconcilliation completed & Yes No provided to patient/care provider Clinical Summary of Care Provided Yes Yes Wound debrided: left sub 1st metatarsal Laterality: Left Type of Debridement: Excisional debridement Anesthesia Used: 4% Lidocaine Solution Depth: to bone - debrided to sub q Percentage of wound debrided: 100 Instrument Used: 3mm curette Tissue Removed: Tissue removed includes fibrous, devitalized, biofilm, and slough tissue Severity: Fat Layer Exposed - probes to bone, but debrided fat layer Amount of bleeding with debridement: Mild Bleeding Controlled with: Pressure Patient tolerated procedure well Assessment/Plan Active Problems Pressure ulcer of toe of left foot, stage 4 (Chronic) Pressure ulcer of left foot, stage 3 (Chronic) Osteomyelitis (Acute) Delayed wound healing (Chronic) Steroid long-term use (Chronic) Rheumatoid arthritis (Chronic) Assessment: Stage 4 pressure ulcer left plantar foot 1st metatarsal head. Stage 2 pressure ulcer left plantar foot 4th metatarsal head-healed. Stage 3 pressure ulcer left medial 1st metatarsal-healed. osteomyelitis 1st metatarsal left foot. Rheumatoid arthritis. Chronic immunosuppression. Chronic prednisone use Plan: Patient seen and examined. Kylah's ulcers were evaluated and debrided today at the wound center after verbal consent obtained. Plantar first metatarsal wound has easily bone exposed. Xray 05/29/2020 did not show osteomyelitis. Given clilnical appearance MRI was ordered. MRI 06/25/20 showed evidence of osteomyelitis to diaphysis of 1st metatarsal. Discussed that bone is noted to be infected that surgical intervention with removal of the infected bone with amputation versus long-term course of IV antibiotics. Reviewed the risks and benefits of each option. Patient is reluctant to have an amputation. She would like to try antibiotics first. Dr Davis in Infectious disease saw patient and prescribed cephalexin and doxycycline for treatment. Cultures obtained 06/30/2020 did not show any growth. Possible previous antibiotics sylvia ent was on have cleared up skin infection but bone infection may remain. LEAS 06/30/20 showed moderate distal small vessle disease bilaterally at the digits. The left foot was noted to have biphasic pulses with CRUZ of 1.27 and TBI of 0.37. The left PT was noncompressible. The right foot PT and DP were noncomressible and TBI of 0.4 with triphasic and biphasic pulsibles. Patient had procedure with Dr Oseguera 07/21/20. Patient reports that the procedure went well. The etiology of her ulcers appears to be from pressure at sites of metatarsal heads as there is significant fat pad atrophy. Discussed with the patient the importance of proper shoe gear with good padding to supplement lost fat pad. This is most likey due to her rheumatoid arthritis, chronic prednisone treatment may also have a role in the nonhealing of the ulcers. Offloading was discussed, patient relates that she has a surgical shoe with forefoot offloaded. Patient presents today wearing the surgical shoe with offloading pad. Recommend patient wear surgical shoe at this time. She was advised to try to avoid standing and being on her feet for long periods and to elevate her feet as much as possible. Encouraged protein rich diet and protein supplements. Advised to call with questions or concerns. Continue wound care to foot ulcerations. Follow-up in 1 week. This note was generated with [employer] dictation software. It may contain incorrect words, spelling, and punctuation that were not noted in checking the note before signing.
== END 2020-08-05 23:59 ==
LOC: WC 10:00
PROVIDERS: PCP Family Medicine; Visit Provider Podiatrist Foot & Ankle Surgery
DX: L89.893 Pressure ulcer of other site, stage 3 (principal); L89.894 Pressure ulcer of other site, stage 4; L89.892 Pressure ulcer of other site, stage 2; M86.9 Osteomyelitis, unspecified; M06.9 Rheumatoid arthritis, unspecified; Z79.52 Long term (current) use of systemic steroids; D84.821 Immunodeficiency due to drugs
CPT/HCPCS: 11042

== ENCOUNTER 2020-09-01 09:30 | Outpatient (RCR) | payer MEDICARE, SELFPAY ==
[2020-08-06 00:41] VITALS: BP 176/95; PULSE 90; RESP 18; TEMP 36.7
[2020-08-11 10:27] VITALS: BP 156/82; PULSE 89; RESP 20; TEMP 36.3; BMI 18.6
--- NOTE | 2020-08-11 12:03 | PN.PCM_ITS ---
(1) Pressure ulcer of right foot, stage 4 Status: Acute Code(s): L89.894 - Pressure ulcer of other site, stage 4 (2) Pressure ulcer of left foot, stage 4 Status: Chronic Code(s): L89.894 - Pressure ulcer of other site, stage 4 (3) Osteomyelitis Status: Acute Qualifiers: Osteomyelitis location: foot Laterality: left Code(s): M86.9 - Osteomyelitis, unspecified (4) Delayed wound healing Status: Chronic Code(s): T14.8XXD - Other injury of unspecified body region, subsequent encounter (5) Steroid long-term use Status: Chronic (6) PAD (peripheral artery disease) Status: Chronic Code(s): I73.9 - Peripheral vascular disease, unspecified (7) Rheumatoid arthritis Status: Chronic Qualifiers: Rheumatoid arthritis location: foot Rheumatoid factor presence: unspecified presence Laterality: bilateral Qualified Code(s): M06.9 - Rheumatoid arthritis, unspecified Code(s): M06.9 - Rheumatoid arthritis, unspecified (8) Corns and callosities Status: Chronic Code(s): L84 - Corns and callosities Type of Wound Date of Service: 08/11/20 Chief Complaint: Pressure ulcer plantar left great toe/metatarsal History of Wound: Kylah is a 75-year-old female who was referred here for treatment of an ulcer at the base of her great toe at her metatarsal head 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 She has been receiving treatment to this area for the last [address] Poe has attempted to debride and close it surgically with sutures but it reopened and it hasn't healed. She has been seeing him weekly and has been using silvadene and Aquacel Ag to treat her ulcer with dressing changes once weekly and sometimes once in between if there is a lot of drainage. 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 Patient has had a recent culture on 05/11/20, positive for Staphylococcus lugendenosis. Another culture was taken which demonstrated staph epididymis. With most recent culture taken 07/01/2020 with no growth seen. She has previously demonstrated an apparent allergy to collagen hydrogel. The patient has had vascular studies, without evidence of significant superficial vein incompetence in the left lower extremity in 2017. Her noninvasive lower extremity arterial study reveals normal ankle?brachial indices bilaterally in 2017. New studies showed moderate distal small vessel disease bilaterally at th e digits with some non compressible vessels. She had MRI on 06/25/20 which showed osteomyelitis to 1st metatarsal. Patient saw Dr Clements who started her on cephalexin and doxycycline to treat her osteomyelitis. She is also scheduled to have a procedure with Dr Oseguera 07/21/20. The patient is noted to be on prednisone and methotrexate for her rheumatoid arthritis. These are acknowledged to be possible inhibitors to wound healing. Progress of Wound: improvement noted to left subone met head ulceration. Ulceration to left subfourth metatarsal head remains healed. New callus to right subfirst metatarsal head with underlying ulceration noted Subjective: Patient seen and examined resting comfortably. Patient denies any new pedal complaints. Patient denies any nausea, fever, chills, chest pain, shortness of breath, cough, streaking, purulence, vomiting. Patient is concerned about potential blister to right foot. Patient has had wound care in the past - Physical Exam Vital Signs Temp Pulse Resp BP 97.4 F L 89 20 H 156/82 H 08/11/20 10:27 08/11/20 10:27 08/11/20 10:27 08/11/20 10:27 General: Alert, Oriented x3 HEENT: Atraumatic Extremities: No clubbing, No cyanosis, No edema, Capillary Refill Less than 3 Seconds, No Calf Tenderness Skin: Ulcer/ Wound - Left subfirst metatarsal head. No malodor, erythema, purulence, streaking, fluctuation, crepitus, or other signs of infection. Wound probes to bone. skin is atrophic and hairless. Granular edges. Wound to subfourth metatarsal head remains closed, - - New wound noted to right subfirst metatarsal head underneath significant callus buildup. No malodor, erythema, purulence, streaking, fluctuation, crepitus, or other signs of infection. Skin is atrophic and hairless. Granular edges wound probes to bone. Patient has had wound care in the past Wound Measurements and Assessment WC - Nurse 1 - General Ulcer Measurement Start: 08/11/20 10:27 Freq: Status: Active Protocol: Activity Type Activity Date Activity User E-Sign Co-Sign Detail Recorded Client Recorded Date Recorded By Document 08/11/20 10:27 DL [id number] 08/11/20 10:37 DL 08/11/20 10:27 Wound Center Nurse 1 [Ulcer Assessment] #4 left medial hallux -Current Size (cm) - Length 0.2 -Current Size (cm) - Width 0.2 -Current Size (cm) - Depth 0.5 -Total Square Cm 0.04 -Photo Taken No -Maximum Distance #2 (cm) 0.3 -Circular Undermining Yes -Exudate Amt Small -Exudate Type Serosanguineous -Wound Margin Thickened -Granulation Amt None Present (0 %) -Necrosis Amt Small (1-33%) -Necrotic Tissue Type Adherent Slough -Structure Exposed N/A -Texture (Анна-wound Skin Appearance) Callus -Moisture (Анна-wound Skin Appearance Dry/Scaly ) -Color (Анна-wound Skin Appearance) No Abnormality -Temperature (Анна-wound Skin No Abnormality Appearance) (Pt Warm) -Tenderness on Palpation (Анна-wound No Skin Appearance) -Ulcer Cleansing Rinsed/ Irrigated with Saline -Foul Odor after Cleansing No -Anesthetic Used 4% Lidocaine Solution,5% Lidocaine Gel WC - Nurse 2 - General Ulcer CM Notes Start: 08/11/20 10:27 Freq: Status: Active Protocol: Activity Type Activity Date Activity User E-Sign Co-Sign Detail Recorded Client Recorded Date Recorded By Document 08/11/20 10:50 REJI [id number] 08/11/20 10:53 REJI 08/11/20 10:50 Wound Center Nurse 2 [Procedure/Treatment] 5-right 1st metatarsal -Time 10:51 -Correct Patient Yes -Correct Side, Site, Position Yes -Correct Procedure Yes -Procedure Performed Yes -Type of Procedure Debridement -Clinical Debridement Subcutaneous -Tissue Removed Subcutaneous -Post Debridement (cm) - Length 0.4 -Post Debridement (cm) - Width 0.5 -Post Debridement (cm) - Depth 0.4 -Total Square (Post) (cm) 0.20 -Area of Debridement (cm) - Length 0.4 -Area of Debridement (cm) - Width 0.5 -Total Square (Area) (cm) 0.20 -Tunneling No -Undermining/Tunneling No -Circular Undermining No -Wound/Ulcer Outcome Not Healed -Ulcer Cleansing Rinsed/ Irrigated with Saline -Foul Odor after Cleansing No -Bioengineered Tissue No -Bleeding Controlled with Pressure -Offloading No -Treatment Response Procedure Tolerated Well -Debridement - Subq, 1st 20sq cm No #4 left medial hallux -Time 10:50 -Correct Patient Yes -Correct Side, Site, Position Yes -Correct Procedure Yes -Procedure Performed Yes -Type of Procedure Debridement -Clinical Debridement Subcutaneous -Tissue Removed Subcutaneous -Post Debridement (cm) - Length 0.3 -Post Debridement (cm) - Width 0.3 -Post Debridement (cm) - Depth 0.2 -Total Square (Post) (cm) 0.09 -Area of Debridement (cm) - Length 0.3 -Area of Debridement (cm) - Width 0.3 -Total Square (Area) (cm) 0.09 -Tunneling No -Undermining/Tunneling No -Circular Undermining No -Wound/Ulcer Outcome Not Healed -Ulcer Cleansing Rinsed/ Irrigated with Saline -Foul Odor after Cleansing No -Bioengineered Tissue No -Bleeding Controlled with Pressure -Offloading Yes -Type of Offloading Surgical Shoe -Treatment Response Procedure Tolerated Well -Debridement - Subq, 1st 20sq cm Yes [See Physician Procedure note for Specifics] Pain Scale: 0-10 Numeric [Pain] -Is Patient Pain Free? Yes - Nurse 3 - General Ulcer D/C NN Start: 08/11/20 10:27 Freq: Status: Active Protocol: Activity Type Activity Date Activity User E-Sign Co-Sign Detail Recorded Client Recorded Date Recorded By Document 08/11/20 11:07 DL [id number] 08/11/20 11:08 DL 08/11/20 11:07 Wound Care Nurse 3 [Wound Dressing] 5-right 1st metatarsal -Ulcer Cleansing Rinsed/ Irrigated with Saline -Foul Odor after Cleansing No -Other Dressing hydrogel -Primary Dressing Covered/Secured Dry Gauze & with Roll Gauze, Secured with Tape #4 left medial hallux -Ulcer Cleansing Rinsed/ Irrigated with Saline -Foul Odor after Cleansing No -Other Dressing hydrogel -Primary Dressing Covered/Secured Dry Gauze & with Roll Gauze, Secured with Tape [Post Procedure Tolerated] -Treatment Response Procedure Tolerated Well Pain Scale: 0-10 Numeric [Pain] -Is Patient Pain Free? Yes - Visit Discharge [Visit Discharge Information] -Discharge Condition Stable -Ambulatory Status Ambulatory -Transportation Private Auto Musculoskeletal: Tenderness - 2 metatarsal heads, - - Fat pad atrophy noted especially to metatarsal head area significant secondary to patient's rheumatoid arthritis Neurological: Sensory exam intact to light touch and pain Psych/Mental Status: Normal Affect, Appropriate Debridement Note Post-Debridement Measurements/Treatment WC - Nurse 2 - General Ulcer CM Notes Start: 08/11/20 10:27 Freq: Status: Active Protocol: Activity Type Activity Date Activity User E-Sign Co-Sign Detail Recorded Client Recorded Date Recorded By Document 08/11/20 10:50 REJI [id number] 08/11/20 10:53 REJI 08/11/20 10:50 Wound Center Nurse 2 5-right 1st metatarsal -Time 10:51 -Correct Patient Yes -Correct Side, Site, Position Yes -Correct Procedure Yes -Procedure Performed Yes -Type of Procedure Debridement -Clinical Debridement Subcutaneous -Tissue Removed Subcutaneous -Post Debridement (cm) - Length 0.4 -Post Debridement (cm) - Width 0.5 -Post Debridement (cm) - Depth 0.4 -Total Square (Post) (cm) 0.20 -Area of Debridement (cm) - Length 0.4 -Area of Debridement (cm) - Width 0.5 -Total Square (Area) (cm) 0.20 -Tunneling No -Undermining/Tunneling No -Circular Undermining No -Wound/Ulcer Outcome Not Healed -Ulcer Cleansing Rinsed/ Irrigated with Saline -Foul Odor after Cleansing No -Bioengineered Tissue No -Bleeding Controlled with Pressure -Offloading No -Treatment Response Procedure Tolerated Well -Debridement - Subq, 1st 20sq cm No #4 left medial hallux -Time 10:50 -Correct Patient Yes -Correct Side, Site, Position Yes -Correct Procedure Yes -Procedure Performed Yes -Type of Procedure Debridement -Clinical Debridement Subcutaneous -Tissue Removed Subcutaneous -Post Debridement (cm) - Length 0.3 -Post Debridement (cm) - Width 0.3 -Post Debridement (cm) - Depth 0.2 -Total Square (Post) (cm) 0.09 -Area of Debridement (cm) - Length 0.3 -Area of Debridement (cm) - Width 0.3 -Total Square (Area) (cm) 0.09 -Tunneling No -Undermining/Tunneling No -Circular Undermining No -Wound/Ulcer Outcome Not Healed -Ulcer Cleansing Rinsed/ Irrigated with Saline -Foul Odor after Cleansing No -Bioengineered Tissue No -Bleeding Controlled with Pressure -Offloading Yes -Type of Offloading Surgical Shoe -Treatment Response Procedure Tolerated Well -Debridement - Subq, 1st 20sq cm Yes Pain Scale: 0-10 Numeric Is Patient Pain Free? Yes WC - Nurse 3 - General Ulcer D/C NN Start: 08/11/20 10:27 Freq: Status: Active Protocol: Activity Type Activity Date Activity User E-Sign Co-Sign Detail Recorded Client Recorded Date Recorded By Document 08/11/20 11:07 DL [id number] 08/11/20 11:08 DL 08/11/20 11:07 Wound Care Nurse 3 5-right 1st metatarsal -Ulcer Cleansing Rinsed/ Irrigated with Saline -Foul Odor after Cleansing No -Other Dressing hydrogel -Primary Dressing Covered/Secured with Dry Gauze & Roll Gauze, Secured with Tape #4 left medial hallux -Ulcer Cleansing Rinsed/ Irrigated with Saline -Foul Odor after Cleansing No -Other Dressing hydrogel -Primary Dressing Covered/Secured with Dry Gauze & Roll Gauze, Secured with Tape Treatment Response Procedure Tolerated Well Pain Scale: 0-10 Numeric Is Patient Pain Free? Yes WC - Visit Discharge Discharge Condition Stable Ambulatory Status Ambulatory Transportation Private Auto Wound debrided: Subfirst metatarsal head Laterality: Left Wound Grade/Stage: Pressure 4 Type of Debridement: Excisional debridement Anesthesia Used: 4% Lidocaine Solution Depth: in the subcutaneous layer - Wound probes to bone Percentage of wound debrided: 100 Instrument Used: #15 blade Tissue Removed: Tissue removed includes fibrous, devitalized, biofilm, and slough tissue Severity: Necrosis of Bone - Debrided to fat level Amount of bleeding with debridement: Mild Bleeding Controlled with: Pressure Patient tolerated procedure well - Additional Wound Wound debrided: Subfirst metatarsal head Laterality: Right Wound Grade/Stage: Pressure 4 Type of Debridement: Excisional debridement Anesthesia Used: 4% Lidocaine Solution Depth: to bone - Debrided to subcutaneous level Percentage of wound debrided: 100 Instrument Used: #15 blade Tissue Removed: Tissue removed includes fibrous, devitalized, biofilm, callus,slough tissue Severity: Fat Layer Exposed - Probes to bone Amount of bleeding with debridement: Mild Bleeding Controlled with: Pressure Patient tolerated procedure: Patient tolerated procedure well Assessment/Plan Active Problems Osteomyelitis (Acute) Pressure ulcer of left foot, stage 4 (Chronic) Delayed wound healing (Chronic) Steroid long-term use (Chronic) PAD (peripheral artery disease) (Chronic) Pressure ulcer of right foot, stage 4 (Acute) Rheumatoid arthritis (Chronic) Assessment: Stage 4 pressure ulcer left plantar foot 1st metatarsal head. Stage 2 pressure ulcer left plantar foot 4th metatarsal head-healed. Stage 3 pressure ulcer left medial 1st metatarsal-healed. New wound stage 4 pressure ulcer plantar right subfirst metatarsal head. osteomyelitis 1st metatarsal left foot. Rheumatoid arthritis. Chronic immunosuppression. Chronic prednisone use. Fat pad atrophy Plan: Patient seen and examined. Patient had concerns concerning her right foot today. Upon examination there is noted to be significant amount of callus tissue noted to the subfirst metatarsal area. Upon debridement it is noted that there is new ulceration to the subfirst metatarsal head region. This ulcer probes to bone. Patient had relates that she has had ulcerations here in the past. Jayda with the patient's the importance of regular maintenance of callus tissue to prevent breakdown of healthy tissue underneath the callus. This with patient she is likely to have calluses progress of her life due to the loss of fat pad to her plantar forefoot Bilaterally. Kylah's ulcers were evaluated and debrided today at the wound center after verbal consent obtained. Plantar first metatarsal wound has easily bone exposed. Xray 05/29/2020 did not show osteomyelitis. Given clilnical appearance MRI was ordered. MRI 06/25/20 showed evidence of osteomyelitis to diaphysis of 1st metatarsal. Discussed that bone is noted to be infected that surgical intervention with removal of the infected bone with amputation versus long-term course of IV antibiotics. Reviewed the risks and benefits of each option. Patient is reluctant to have an amputation. She would like to try antibiotics first. Dr Davis in Infectious disease saw patient and prescribed cephalexin and doxycycline for treatment. Cultures obtained 06/30/2020 did not show any growth. Possible previous antibiotics patient was on have cleared up skin infection but bone infection may remain. LEAS 06/30/20 showed moderate distal small vessle disease bilaterally at the digits. The left foot was noted to have biphasic pulses with CRUZ of 1.27 and T BI of 0.37. The left PT was noncompressible. The right foot PT and DP were noncomressible and TBI of 0.4 with triphasic and biphasic pulsibles. Patient had procedure with Dr Oseguera 07/21/20. Patient reports that the procedure went well. The etiology of her ulcers appears to be from pressure at sites of metatarsal heads as there is significant fat pad atrophy. Discussed with the patient the importance of proper shoe gear with good padding to supplement lost fat pad. This is most likey due to her rheumatoid arthritis, chronic prednisone treatment may also have a role in the nonhealing of the ulcers. Discussed with the patient possibility of ordering custom inserts self-pay. Patient will consider. Offloading was discussed, patient relates that she has a surgical shoe with forefoot offloaded. Patient presents today wearing the surgical shoe with offloading pad. Recommend patient wear surgical shoe at this time. She was advised to try to avoid standing and being on her feet for long periods and to elevate her feet as much as possible. Encouraged protein rich diet and protein supplements. Advised to call with questions or concerns. Continue wound care to foot ulcerations. Follow-up in 1 week. This note was generated with [employer] dictation software. It may contain incorrect words, spelling, and punctuation that were not noted in checking the note before signing. The problems addressed require a low medical decision making level which includes two or more minor problems, a stable chronic illness, or an acute uncomplicated illness or injury.
[2020-08-18 09:31] VITALS: BP 164/108; PULSE 93; RESP 16; TEMP 37.3; BMI 18.6
--- NOTE | 2020-08-18 12:36 | PCM.WC.PN ---
(1) Pressure ulcer of right foot, stage 4 Status: Acute Code(s): L89.894 - Pressure ulcer of other site, stage 4 (2) Pressure ulcer of left foot, stage 4 Status: Chronic Code(s): L89.894 - Pressure ulcer of other site, stage 4 (3) Osteomyelitis Status: Acute Qualifiers: Osteomyelitis location: foot Laterality: left Code(s): M86.9 - Osteomyelitis, unspecified (4) Delayed wound healing Status: Chronic Code(s): T14.8XXD - Other injury of unspecified body region, subsequent encounter (5) Steroid long-term use Status: Chronic (6) PAD (peripheral artery disease) Status: Chronic Code(s): I73.9 - Peripheral vascular disease, unspecified (7) Rheumatoid arthritis Status: Chronic Qualifiers: Rheumatoid arthritis location: foot Rheumatoid factor presence: unspecified presence Laterality: bilateral Qualified Code(s): M06.9 - Rheumatoid arthritis, unspecified Code(s): M06.9 - Rheumatoid arthritis, unspecified (8) Corns and callosities Status: Chronic Code(s): L84 - Corns and callosities Type of Wound Date of Service: 08/18/20 Chief Complaint: Pressure ulcer plantar left great toe/metatarsal History of Wound: Kylah is a 75-year-old female who was referred here for treatment of an ulcer at the base of her great toe at her metatarsal head from Dr. Poe, her mail order sorter. She has been receiving treatment to this area for the last [address] Poe has attempted to debride and close it surgically with sutures but it reopened and it hasn't healed. She has been seeing him weekly and has been using silvadene and Aquacel Ag to treat her ulcer with dressing changes once weekly and sometimes once in between if there is a lot of drainage. 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 Patient has had a recent culture on 05/11/20, positive for Staphylococcus lugendenosis. Another culture was taken which demonstrated staph epididymis. With most recent culture taken 07/01/2020 with no growth seen. She has previously demonstrated an apparent allergy to collagen hydrogel. The patient has had vascular studies, without evidence of significant superficial vein incompetence in the left lower extremity in 2017. Her noninvasive lower extremity arterial study reveals normal ankle?brachial indices bilaterally in 2017. New studies showed moderate distal small vessel disease bilaterally at the digits with some non compressible vessels. She had MRI on 06/25/20 which showed osteomyelitis to 1st metatarsal. Patient saw Dr Clements who started her on cephalexin and doxycycline to treat her osteomyelitis. She is also scheduled to have a procedure with Dr Oseguera 07/21/20. The patient is noted to be on prednisone and methotrexate for her rheumatoid arthritis. These are acknowledged to be possible inhibitors to wound healing. Progress of Wound: Stable noted to left sub first met head ulceration. Ulceration to left subfourth metatarsal head remains healed. Ulceration to right subfirst metatarsal head stable Subjective: Patient seen and examined resting comfortably. Patient denies any new pedal complaints. Patient denies any nausea, fever, chills, chest pain, shortness of breath, cough, streaking, purulence, vomiting. - Physical Exam Vital Signs Temp Pulse Resp BP 99.1 F 93 16 164/108 H 08/18/20 09:31 08/18/20 09:31 08/18/20 09:31 08/18/20 09:31 General: Alert, Oriented x3, Cooperative HEENT: Atraumatic Extremities: No clubbing, No cyanosis, No edema, Capillary Refill Less than 3 Seconds, No Calf Tenderness, Diminished Peripheral Pulses Skin: Ulcer/ Wound - Bilateral subfirst metatarsal ulceration. No malodor, erythema, purulence, streaking, fluctuation, crepitus, or other signs of infection. Skin is atrophic and hairless. Granular base sanguinous drainage. Probes to bone, - - Callus buildup noted to left subfourth metatarsal head Wound Measurements and Assessment WC - Nurse 1 - General Ulcer Measurement Start: 08/11/20 10:27 Freq: Status: Active Protocol: Activity Type Activity Date Activity User E-Sign Co-Sign Detail Recorded Client Recorded Date Recorded By Document 08/18/20 09:31 [facility] [id number] 08/18/20 09:43 [facility] 08/18/20 09:31 Wound Center Nurse 1 [Ulcer Assessment] 5-right 1st metatarsal -Combined with other wound No -Current Size (cm) - Length 0.1 -Current Size (cm) - Width 0.1 -Current Size (cm) - Depth 0.1 -Total Square Cm 0.01 -Photo Taken No -Epithelialization Large 67-100% -Tunneling No -Undermining/Tunneling No -Circular Undermining No -Exudate Amt None Present -Wound Margin Distinct, Outline Attached -Granulation Amt None Present (0 %) -Slough/Fibrin Yes -Necrosis Amt Small (1-33%) -Necrotic Tissue Type Eschar -Texture (Анна-wound Skin Appearance) Assessed,Callus ,Scarring -Moisture (Анна-wound Skin Appearance Assessed,Dry/ ) Scaly -Color (Анна-wound Skin Appearance) Assessed -Temperature (Анна-wound Skin No Abnormality Appearance) (Pt Warm) -Tenderness on Palpation (Анна-wound No Skin Appearance) -Ulcer Cleansing Rinsed/ Irrigated with Saline -Foul Odor after Cleansing No -Anesthetic Used 5% Lidocaine Gel #4 left medial hallux -Combined with other wound No -Current Size (cm) - Length 0.1 -Current Size (cm) - Width 0.4 -Current Size (cm) - Depth 0.3 -Total Square Cm 0.04 -Photo Taken No -Epithelialization None Present -Tunneling No -Undermining/Tunneling Yes -Undermining/Tunneling Starts (O' 12 clock) -Undermining/Tunneling Ends (O'clock) 12 -Maximum Distance (cm) 0.3 -Circular Undermining Yes -Exudate Amt Small -Exudate Type Serosanguineous -Wound Margin Distinct, Outline Attached -Granulation Amt Small (1-33%) -Granulation Quality [place] -Slough/Fibrin Yes -Necrosis Amt Medium (34-66%) -Necrotic Tissue Type Adherent Slough -Texture (Анна-wound Skin Appearance) Assessed,Callus ,Scarring -Moisture (Анна-wound Skin Appearance Assessed, ) Maceration -Color (Анна-wound Skin Appearance) Assessed,Palor -Temperature (Анна-wound Skin No Abnormality Appearance) (Pt Warm) -Tenderness on Palpation (Анна-wound No Skin Appearance) -Ulcer Cleansing Rinsed/ Irrigated with Saline -Foul Odor after Cleansing No -Anesthetic Used 5% Lidocaine Gel WC - Nurse 2 - General Ulcer CM Notes Start: 08/11/20 10:27 Freq: Status: Active Protocol: Activity Type Activity Date Activity User E-Sign Co-Sign Detail Recorded Client Recorded Date Recorded By Document 08/18/20 09:50 [id number] 08/18/20 10:01 [email or web address] 08/18/20 09:50 Wound Center Nurse 2 [Procedure/Treatment] 5-right 1st metatarsal -Time 09:51 -Correct Patient Yes -Correct Side, Site, Position Yes -Correct Procedure Yes -Procedure Performed Yes -Type of Procedure Debridement -Clinical Debridement Subcutaneous -Tissue Removed Subcutaneous -Post Debridement (cm) - Length 0.4 -Post Debridement (cm) - Width 0.4 -Post Debridement (cm) - Depth 0.4 -Total Square (Post) (cm) 0.16 -Area of Debridement (cm) - Length 0.4 -Area of Debridement (cm) - Width 0.4 -Total Square (Area) (cm) 0.16 -Tunneling No -Undermining/Tunneling No -Circular Undermining No -Wound/Ulcer Outcome Not Healed -Ulcer Cleansing Rinsed/ Irrigated with Saline -Foul Odor after Cleansing No -Bioengineered Tissue No -Bleeding Controlled with Pressure -Offloading No -Treatment Response Procedure Tolerated Well -Debridement - Subq, 1st 20sq cm Yes #4 left medial hallux -Time 10:00 -Correct Patient Yes -Correct Side, Site, Position Yes -Correct Procedure Yes -Procedure Performed Yes -Type of Procedure Debridement -Clinical Debridement Subcutaneous -Tissue Removed Subcutaneous -Post Debridement (cm) - Length 0.2 -Post Debridement (cm) - Width 0.5 -Post Debridement (cm) - Depth 0.3 -Total Square (Post) (cm) 0.10 -Area of Debridement (cm) - Length 0.2 -Area of Debridement (cm) - Width 0.5 -Total Square (Area) (cm) 0.10 -Tunneling No -Undermining/Tunneling No -Circular Undermining No -Wound/Ulcer Outcome Not Healed -Ulcer Cleansing Rinsed/ Irrigated with Saline -Foul Odor after Cleansing No -Bioengineered Tissue No -Bleeding Controlled with Pressure -Offloading Yes -Type of Offloading Surgical Shoe -Treatment Response Procedure Tolerated Well -Debridement - Subq, 1st 20sq cm No [See Physician Procedure note for Specifics] Pain Scale: 0-10 Numeric [Pain] -Is Patient Pain Free? Yes WC - Nurse 3 - General Ulcer D/C NN Start: 08/11/20 10:27 Freq: Status: Active Protocol: Activity Type Activity Date Activity User E-Sign Co-Sign Detail Recorded Client Recorded Date Recorded By Document 08/18/20 10:08 [facility] [id number] 08/18/20 10:09 [facility] 08/18/20 10:08 Wound Care Nurse 3 [Wound Dressing] 5-right 1st metatarsal -Ulcer Cleansing Rinsed/ Irrigated with Saline -Foul Odor after Cleansing No -Primary Dressing Applied Other -Other Dressing HYDROGEL -Primary Dressing Covered/Secured Dry Gauze & with Roll Gauze, Secured with Tape #4 left medial hallux -Ulcer Cleansing Rinsed/ Irrigated with Saline -Foul Odor after Cleansing No -Primary Dressing Applied Other -Other Dressing HYDROGEL -Primary Dressing Covered/Secured Dry Gauze & with Roll Gauze, Secured with Tape [Post Procedure Tolerated] -Treatment Response Procedure Tolerated Well Pain Scale: 0-10 Numeric [Pain] -Is Patient Pain Free? Yes WC - Visit Discharge [Visit Discharge Information] -Discharge Condition Stable -Ambulatory Status Ambulatory -Transportation Private Auto Musculoskeletal: - - Fat pad atrophy bilateral feet with easily palpable metatarsal heads Neurological: Sensory exam intact to light touch and pain Psych/Mental Status: Normal Affect, Appropriate Debridement Note Post-Debridement Measurements/Treatment WC - Nurse 2 - General Ulcer CM Notes Start: 08/11/20 10:27 Freq: Status: Active Protocol: Activity Type Activity Date Activity User E-Sign Co-Sign Detail Recorded Client Recorded Date Recorded By Document 08/11/20 10:50 [id number] 08/11/20 10:53 Document 08/18/20 09:50 [id number] 08/18/20 10:01 08/11/20 08/18/20 10:50 09:50 Wound Center Nurse 2 5-right 1st metatarsal -Time 10:51 09:51 -Correct Patient Yes Yes -Correct Side, Site, Position Yes Yes -Correct Procedure Yes Yes -Procedure Performed Yes Yes -Type of Procedure Debridement Debridement -Clinical Debridement Subcutaneous Subcutaneous -Tissue Removed Subcutaneous Subcutaneous -Post Debridement (cm) - Length 0.4 0.4 -Post Debridement (cm) - Width 0.5 0.4 -Post Debridement (cm) - Depth 0.4 0.4 -Total Square (Post) (cm) 0.20 0.16 -Area of Debridement (cm) - Length 0.4 0.4 -Area of Debridement (cm) - Width 0.5 0.4 -Total Square (Area) (cm) 0.20 0.16 -Tunneling No No -Undermining/Tunneling No No -Circular Undermining No No -Wound/Ulcer Outcome Not Healed Not Healed -Ulcer Cleansing Rinsed/ Rinsed/ Irrigated with Irrigated with Saline Saline -Foul Odor after Cleansing No No -Bioengineered Tissue No No -Bleeding Controlled with Pressure Pressure -Offloading No No -Treatment Response Procedure Procedure Tolerated Well Tolerated Well -Debridement - Subq, 1st 20sq cm No Yes #4 left medial hallux -Time 10:50 10:00 -Correct Patient Yes Yes -Correct Side, Site, Position Yes Yes -Correct Procedure Yes Yes -Procedure Performed Yes Yes -Type of Procedure Debridement Debridement -Clinical Debridement Subcutaneous Subcutaneous -Tissue Removed Subcutaneous Subcutaneous -Post Debridement (cm) - Length 0.3 0.2 -Post Debridement (cm) - Width 0.3 0.5 -Post Debridement (cm) - Depth 0.2 0.3 -Total Square (Post) (cm) 0.09 0.10 -Area of Debridement (cm) - Length 0.3 0.2 -Area of Debridement (cm) - Width 0.3 0.5 -Total Square (Area) (cm) 0.09 0.10 -Tunneling No No -Undermining/Tunneling No No -Circular Undermining No No -Wound/Ulcer Outcome Not Healed Not Healed -Ulcer Cleansing Rinsed/ Rinsed/ Irrigated with Irrigated with Saline Saline -Foul Odor after Cleansing No No -Bioengineered Tissue No No -Bleeding Controlled with Pressure Pressure -Offloading Yes Yes -Type of Offloading Surgical Shoe Surgical Shoe -Treatment Response Procedure Procedure Tolerated Well Tolerated Well -Debridement - Subq, 1st 20sq cm Yes No Pain Scale: 0-10 Numeric Is Patient Pain Free? Yes Yes WC - Nurse 3 - General Ulcer D/C NN Start: 08/11/20 10:27 Freq: Status: Active Protocol: Activity Type Activity Date Activity User E-Sign Co-Sign Detail Recorded Client Recorded Date Recorded By Document 08/11/20 11:07 DL [id number] 08/11/20 11:08 DL Document 08/18/20 10:08 [facility] [id number] 08/18/20 10:09 BMF 08/11/20 08/18/20 11:07 10:08 Wound Care Nurse 3 5-right 1st metatarsal -Ulcer Cleansing Rinsed/ Rinsed/ Irrigated with Irrigated with Saline Saline -Foul Odor after Cleansing No No -Primary Dressing Applied Other -Other Dressing hydrogel HYDROGEL -Primary Dressing Covered/Secured with Dry Gauze & Dry Gauze & Roll Gauze, Roll Gauze, Secured with Secured with Tape Tape #4 left medial hallux -Ulcer Cleansing Rinsed/ Rinsed/ Irrigated with Irrigated with Saline Saline -Foul Odor after Cleansing No No -Primary Dressing Applied Other -Other Dressing hydrogel HYDROGEL -Primary Dressing Covered/Secured with Dry Gauze & Dry Gauze & Roll Gauze, Roll Gauze, Secured with Secured with Tape Tape Treatment Response Procedure Procedure Tolerated Well Tolerated Well Pain Scale: 0-10 Numeric Is Patient Pain Free? Yes Yes WC - Visit Discharge Discharge Condition Stable Stable Ambulatory Status Ambulatory Ambulatory Transportation Private Auto Private Auto Wound debrided: Subfirst metatarsal head Laterality: Right Type of Debridement: Excisional debridement Anesthesia Used: 4% Lidocaine Solution Depth: to bone - Debrided subcu Percentage of wound debrided: 100 Instrument Used: 3mm curette Tissue Removed: Tissue removed includes fibrous, devitalized, biofilm, and slough tissue Severity: Fat Layer Exposed - Probes to bone Amount of bleeding with debridement: Moderate Bleeding Controlled with: Pressure Patient tolerated procedure well - Additional Wound Wound debrided: Subfirst metatarsal Laterality: Left Type of Debridement: Excisional debridement Anesthesia Used: 4% Lidocaine Solution Depth: to bone - Debrided to subcu Percentage of wound debrided: 100 Instrument Used: 3mm curette Tissue Removed: Tissue removed includes fibrous, devitalized, biofilm, and slough tissue Severity: Fat Layer Exposed - Probes to bone Amount of bleeding with debridement: Moderate Bleeding Controlled with: Pressure Patient tolerated procedure: Patient tolerated procedure well Assessment/Plan Active Problems Osteomyelitis (Acute) Pressure ulcer of left foot, stage 4 (Chronic) Delayed wound healing (Chronic) Steroid long-term use (Chronic) PAD (peripheral artery disease) (Chronic) Pressure ulcer of right foot, stage 4 (Acute) Corns and callosities (Chronic) Rheumatoid arthritis (Chronic) Assessment: Stage 4 pressure ulcer left plantar foot 1st metatarsal head. Stage 2 pressure ulcer left plantar foot 4th metatarsal head-healed. Stage 3 pressure ulcer left medial 1st metatarsal-healed. stage 4 pressure ulcer plantar right subfirst metatarsal head. osteomyelitis 1st metatarsal left foot. Rheumatoid arthritis. Chronic immunosuppression. Chronic prednisone use. Fat pad atrophy Plan: Patient seen and examined. Ulcerations remain stable and noninfected in appearance. Kylah's ulcers were evaluated and debrided today at the wound center after verbal consent obtained. Plantar first metatarsal wound has easily bone exposed. Xray 05/29/2020 did not show osteomyelitis. Given clilnical appearance MRI was ordered. MRI 06/25/20 showed evidence of osteomyelitis to diaphysis of 1st metatarsal. Discussed that bone is noted to be infected that surgical intervention with removal of the infected bone with amputation versus long-term course of IV antibiotics. Reviewed the risks and benefits of each option. Patient is reluctant to have an amputation. She would like to try antibiotics first. Cultures obtained 06/30/2020 did not show any growth. Possible previous antibiotics patient was on have cleared up skin infection but bone infection may remain. Dr Davis in Infectious disease saw patient and prescribed cephalexin and doxycycline for treatment. LEAS 06/30/20 showed moderate distal small vessle disease bilaterally at the digits. The left foot was noted to have biphasic pulses with CRUZ of 1.27 and TBI of 0.37. The left PT was noncompressible. The right foot PT and DP were noncomressible and TBI of 0.4 with triphasic and biphasic pulsibles. Patient had procedure with Dr Oseguera 07/21/20. Patient reports that the procedure went well. The etiology of her ulcers appears to be from pressure at sites of metatarsal heads as there is significant fat pad atrophy. Discussed with the patient the importance of proper shoe gear with good padding to supplement lost fat pad. This is most likey due to her rheumatoid arthritis, chronic prednisone treatment may also have a role in the nonhealing of the ulcers. Discussed with the patient possibility of ordering custom inserts self-pay. Patient will consider. Offloading was discussed, patient relates that she has a surgical shoe with forefoot offloaded. Patient presents today wearing the surgical shoe with offloading pad on her left foot. Recommend patient wear surgical shoe at this time. She was advised to try to avoid standing and being on her feet for long periods and to elevate her feet as much as possible. Patient has offloading pad placed into her right tennis shoe. This was further modified in order to better offload the ulceration site. Encouraged protein rich diet and protein supplements. Advised to call with questions or concerns. Continue wound care to foot ulcerations. Follow-up in 1 week. This note was generated with [employer] dictation software. It may contain incorrect words, spelling, and punctuation that were not noted in checking the note before signing.
[2020-08-25 09:29] VITALS: BP 161/84; PULSE 87; RESP 16; TEMP 37; BMI 18.6
--- NOTE | 2020-08-25 12:25 | PN.PCM_ITS ---
(1) Pressure ulcer of right foot, stage 4 Status: Acute Code(s): L89.894 - Pressure ulcer of other site, stage 4 (2) Pressure ulcer of left foot, stage 4 Status: Chronic Code(s): L89.894 - Pressure ulcer of other site, stage 4 (3) Osteomyelitis Status: Acute Qualifiers: Osteomyelitis location: foot Laterality: left Code(s): M86.9 - Osteomyelitis, unspecified (4) Delayed wound healing Status: Chronic Code(s): T14.8XXD - Other injury of unspecified body region, subsequent encounter (5) Steroid long-term use Status: Chronic (6) PAD (peripheral artery disease) Status: Chronic Code(s): I73.9 - Peripheral vascular disease, unspecified (7) Rheumatoid arthritis Status: Chronic Qualifiers: Rheumatoid arthritis location: foot Rheumatoid factor presence: unspecified presence Laterality: bilateral Qualified Code(s): M06.9 - Rheumatoid arthritis, unspecified Code(s): M06.9 - Rheumatoid arthritis, unspecified (8) Corns and callosities Status: Chronic Code(s): L84 - Corns and callosities Type of Wound Date of Service: 08/25/20 Chief Complaint: Pressure ulcer plantar left great toe/metatarsal History of Wound: Kylah is a 75-year-old female who was referred here for treatment of an ulcer at the base of her great toe at her metatarsal head 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 She has been receiving treatment to this area for the last [address] Poe has attempted to debride and close it surgically with sutures but it reopened and it hasn't healed. She has been seeing him weekly and has been using silvadene and Aquacel Ag to treat her ulcer with dressing changes once weekly and sometimes once in between if there is a lot of drainage. 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 Patient has had a recent culture on 05/11/20, positive for Staphylococcus lugendenosis. Another culture was taken which demonstrated staph epididymis. With most recent culture taken 07/01/2020 with no growth seen. She has previously demonstrated an apparent allergy to collagen hydrogel. The patient has had vascular studies, without evidence of significant superficial vein incompetence in the left lower extremity in 2017. Her noninvasive lower extremity arterial study reveals normal ankle?brachial indices bilaterally in 2017. New studies showed moderate distal small vessel disease bilaterally at th e digits with some non compressible vessels. She had MRI on 06/25/20 which showed osteomyelitis to 1st metatarsal. Patient saw Dr Clements who started her on cephalexin and doxycycline to treat her osteomyelitis. She is also scheduled to have a procedure with Dr Oseguera 07/21/20. Dr. Oseguera has no further interventions planned at this time. The patient is noted to be on prednisone and methotrexate for her rheumatoid arthritis. These are acknowledged to be possible inhibitors to wound healing. Progress of Wound: Stable noted to left sub first met head ulceration. U lceration to left subfourth metatarsal head remains healed. Ulceration to right subfirst metatarsal head stable Subjective: Patient seen and examined resting comfortably. Patient denies any new pedal complaints. Patient denies any nausea, fever, chills, chest pain, shortness of breath, cough, streaking, purulence, vomiting. - Physical Exam Vital Signs Temp Pulse Resp BP 98.6 F 87 16 161/84 H 08/25/20 09:29 08/25/20 09:29 08/25/20 09:29 08/25/20 09:29 General: Alert, Oriented x3 HEENT: Atraumatic Extremities: No clubbing, No cyanosis, No edema, Capillary Refill Less than 3 Seconds, No Calf Tenderness, Diminished Peripheral Pulses Skin: Ulcer/ Wound - Bilateral subfirst metatarsal head. No malodor, erythema, purulence, streaking, fluctuation, crepitus, or other signs of infection. Both wounds probe to bone. Skin is atrophic and hairless. Wound Measurements and Assessment WC - Nurse 1 - General Ulcer Measurement Start: 08/11/20 10:27 Freq: Status: Active Protocol: Activity Type Activity Date Activity User E-Sign Co-Sign Detail Recorded Client Recorded Date Recorded By Document 08/25/20 09:29 BM [id number] 08/25/20 09:39 BMF 08/25/20 09:29 Wound Center Nurse 1 [Ulcer Assessment] 5-right 1st metatarsal -Combined with other wound No -Current Size (cm) - Length 0.1 -Current Size (cm) - Width 0.1 -Current Size (cm) - Depth 0.1 -Total Square Cm 0.01 -Photo Taken No -Epithelialization Large 67-100% -Tunneling No -Undermining/Tunneling No -Circular Undermining No -Texture (Анна-wound Skin Appearance) Assessed,Callus -Moisture (Анна-wound Skin Appearance Assessed,Dry/ ) Scaly -Color (Анна-wound Skin Appearance) Assessed -Ulcer Cleansing Rinsed/ Irrigated with Saline -Foul Odor after Cleansing No -Anesthetic Used 5% Lidocaine Gel #4 left medial hallux -Combined with other wound No -Current Size (cm) - Length 0.2 -Current Size (cm) - Width 0.2 -Current Size (cm) - Depth 0.3 -Total Square Cm 0.04 -Photo Taken No -Epithelialization None Present -Tunneling No -Undermining/Tunneling Yes -Undermining/Tunneling Starts (O' 12 clock) -Undermining/Tunneling Ends (O'clock) 12 -Maximum Distance (cm) 0.3 -Circular Undermining Yes -Exudate Amt Small -Exudate Type Serous -Wound Margin Distinct, Outline Attached -Granulation Amt None Present (0 %) -Slough/Fibrin Yes -Necrosis Amt Large (67-100%) -Necrotic Tissue Type Adherent Slough -Texture (Анна-wound Skin Appearance) Assessed,Callus ,Scarring -Moisture (Анна-wound Skin Appearance Assessed,Dry/ ) Scaly -Color (Анна-wound Skin Appearance) Assessed -Temperature (Анна-wound Skin No Abnormality Appearance) (Pt Warm) -Tenderness on Palpation (Анна-wound No Skin Appearance) -Ulcer Cleansing Rinsed/ Irrigated with Saline -Foul Odor after Cleansing No -Anesthetic Used 5% Lidocaine Gel WC - Nurse 2 - General Ulcer CM Notes Start: 08/11/20 10:27 Freq: Status: Active Protocol: Activity Type Activity Date Activity User E-Sign Co-Sign Detail Recorded Client Recorded Date Recorded By Document 08/25/20 09:50 REJI [id number] 08/25/20 09:57 REJI 08/25/20 09:50 Wound Center Nurse 2 [Procedure/Treatment] 5-right 1st metatarsal -Time 09:55 -Correct Patient Yes -Correct Side, Site, Position Yes -Correct Procedure Yes -Procedure Performed Yes -Type of Procedure Debridement -Clinical Debridement Subcutaneous -Tissue Removed Subcutaneous -Post Debridement (cm) - Length 0.4 -Post Debridement (cm) - Width 0.3 -Post Debridement (cm) - Depth 0.4 -Total Square (Post) (cm) 0.12 -Area of Debridement (cm) - Length 0.4 -Area of Debridement (cm) - Width 0.3 -Total Square (Area) (cm) 0.12 -Tunneling No -Undermining/Tunneling No -Circular Undermining No -Wound/Ulcer Outcome Not Healed -Ulcer Cleansing Rinsed/ Irrigated with Saline -Foul Odor after Cleansing No -Bioengineered Tissue No -Bleeding Controlled with Pressure -Offloading Yes -Type of Offloading Surgical Shoe -Treatment Response Procedure Tolerated Well -Debridement - Subq, 1st 20sq cm Yes #4 left medial hallux -Time 09:56 -Correct Patient Yes -Correct Side, Site, Position Yes -Correct Procedure Yes -Procedure Performed Yes -Type of Procedure Debridement -Clinical Debridement Subcutaneous -Tissue Removed Subcutaneous -Post Debridement (cm) - Length 0.4 -Post Debridement (cm) - Width 0.5 -Post Debridement (cm) - Depth 0.3 -Total Square (Post) (cm) 0.20 -Area of Debridement (cm) - Length 0.4 -Area of Debridement (cm) - Width 0.5 -Total Square (Area) (cm) 0.20 -Tunneling No -Undermining/Tunneling No -Circular Undermining No -Wound/Ulcer Outcome Not Healed -Ulcer Cleansing Rinsed/ Irrigated with Saline -Foul Odor after Cleansing No -Bioengineered Tissue No -Bleeding Controlled with Pressure -Offloading No -Treatment Response Procedure Tolerated Well -Debridement - Subq, 1st 20sq cm No [See Physician Procedure note for Specifics] Pain Scale: 0-10 Numeric [Pain] -Is Patient Pain Free? Yes WC - Nurse 3 - General Ulcer D/C NN Start: 08/11/20 10:27 Freq: Status: Active Protocol: Activity Type Activity Date Activity User E-Sign Co-Sign Detail Recorded Client Recorded Date Recorded By Document 08/25/20 10:49 DL [id number] 08/25/20 10:50 DL 08/25/20 10:49 Wound Care Nurse 3 [Wound Dressing] 5-right 1st metatarsal -Ulcer Cleansing Rinsed/ Irrigated with Saline -Foul Odor after Cleansing No -Other Dressing hydrogel -Primary Dressing Covered/Secured Dry Gauze & with Roll Gauze, Secured with Tape #4 left medial hallux -Ulcer Cleansing Rinsed/ Irrigated with Saline -Foul Odor after Cleansing No -Other Dressing hydrogel -Primary Dressing Covered/Secured Dry Gauze & with Roll Gauze, Secured with Tape [Post Procedure Tolerated] -Treatment Response Procedure Tolerated Well Pain Scale: 0-10 Numeric [Pain] -Is Patient Pain Free? Yes WC - Visit Discharge [Visit Discharge Information] -Discharge Condition Stable -Ambulatory Status Ambulatory -Transportation Private Auto Musculoskeletal: Tenderness - To metatarsal heads and ulcerations, - - Significant fat pad atrophy noted with easily palpable metatarsal heads Neurological: Sensory exam intact to light touch and pain Psych/Mental Status: Normal Affect, Appropriate Debridement Note Post-Debridement Measurements/Treatment - Nurse 2 - General Ulcer CM Notes Start: 08/11/20 10:27 Freq: Status: Active Protocol: Activity Type Activity Date Activity User E-Sign Co-Sign Detail Recorded Client Recorded Date Recorded By Document 08/11/20 10:50 [id number] 08/11/20 10:53 Document 08/18/20 09:50 [id number] 08/18/20 10:01 Document 08/25/20 09:50 [id number] 08/25/20 09:57 08/11/20 08/18/20 08/25/20 10:50 09:50 09:50 Wound Center Nurse 2 5-right 1st metatarsal -Time 10:51 09:51 09:55 -Correct Patient Yes Yes Yes -Correct Side, Site, Position Yes Yes Yes -Correct Procedure Yes Yes Yes -Procedure Performed Yes Yes Yes -Type of Procedure Debridement Debridement Debridement -Clinical Debridement Subcutaneous Subcutaneous Subcutaneous -Tissue Removed Subcutaneous Subcutaneous Subcutaneous -Post Debridement (cm) - Length 0.4 0.4 0.4 -Post Debridement (cm) - Width 0.5 0.4 0.3 -Post Debridement (cm) - Depth 0.4 0.4 0.4 -Total Square (Post) (cm) 0.20 0.16 0.12 -Area of Debridement (cm) - Length 0.4 0.4 0.4 -Area of Debridement (cm) - Width 0.5 0.4 0.3 -Total Square (Area) (cm) 0.20 0.16 0.12 -Tunneling No No No -Undermining/Tunneling No No No -Circular Undermining No No No -Wound/Ulcer Outcome Not Healed Not Healed Not Healed -Ulcer Cleansing Rinsed/ Rinsed/ Rinsed/ Irrigated with Irrigated with Irrigated with Saline Saline Saline -Foul Odor after Cleansing No No No -Bioengineered Tissue No No No -Bleeding Controlled with Pressure Pressure Pressure -Offloading No No Yes -Type of Offloading Surgical Shoe -Treatment Response Procedure Procedure Procedure Tolerated Well Tolerated Well Tolerated Well -Debridement - Subq, 1st 20sq cm No Yes Yes #4 left medial hallux -Time 10:50 10:00 09:56 -Correct Patient Yes Yes Yes -Correct Side, Site, Position Yes Yes Yes -Correct Procedure Yes Yes Yes -Procedure Performed Yes Yes Yes -Type of Procedure Debridement Debridement Debridement -Clinical Debridement Subcutaneous Subcutaneous Subcutaneous -Tissue Removed Subcutaneous Subcutaneous Subcutaneous -Post Debridement (cm) - Length 0.3 0.2 0.4 -Post Debridement (cm) - Width 0.3 0.5 0.5 -Post Debridement (cm) - Depth 0.2 0.3 0.3 -Total Square (Post) (cm) 0.09 0.10 0.20 -Area of Debridement (cm) - Length 0.3 0.2 0.4 -Area of Debridement (cm) - Width 0.3 0.5 0.5 -Total Square (Area) (cm) 0.09 0.10 0.20 -Tunneling No No No -Undermining/Tunneling No No No -Circular Undermining No No No -Wound/Ulcer Outcome Not Healed Not Healed Not Healed -Ulcer Cleansing Rinsed/ Rinsed/ Rinsed/ Irrigated with Irrigated with Irrigated with Saline Saline Saline -Foul Odor after Cleansing No No No -Bioengineered Tissue No No No -Bleeding Controlled with Pressure Pressure Pressure -Offloading Yes Yes No -Type of Offloading Surgical Shoe Surgical Shoe -Treatment Response Procedure Procedure Procedure Tolerated Well Tolerated Well Tolerated Well -Debridement - Subq, 1st 20sq cm Yes No No Pain Scale: 0-10 Numeric Is Patient Pain Free? Yes Yes Yes WC - Nurse 3 - General Ulcer D/C NN Start: 08/11/20 10:27 Freq: Status: Active Protocol: Activity Type Activity Date Activity User E-Sign Co-Sign Detail Recorded Client Recorded Date Recorded By Document 08/11/20 11:07 DL [id number] 08/11/20 11:08 DL Document 08/18/20 10:08 [facility] [id number] 08/18/20 10:09 [facility] Document 08/25/20 10:49 DL [id number] 08/25/20 10:50 DL 08/11/20 08/18/20 08/25/20 11:07 10:08 10:49 Wound Care Nurse 3 5-right 1st metatarsal -Ulcer Cleansing Rinsed/ Rinsed/ Rinsed/ Irrigated with Irrigated with Irrigated with Saline Saline Saline -Foul Odor after Cleansing No No No -Primary Dressing Applied Other -Other Dressing hydrogel HYDROGEL hydrogel -Primary Dressing Covered/Secured with Dry Gauze & Dry Gauze & Dry Gauze & Roll Gauze, Roll Gauze, Roll Gauze, Secured with Secured with Secured with Tape Tape Tape #4 left medial hallux -Ulcer Cleansing Rinsed/ Rinsed/ Rinsed/ Irrigated with Irrigated with Irrigated with Saline Saline Saline -Foul Odor after Cleansing No No No -Primary Dressing Applied Other -Other Dressing hydrogel HYDROGEL hydrogel -Primary Dressing Covered/Secured with Dry Gauze & Dry Gauze & Dry Gauze & Roll Gauze, Roll Gauze, Roll Gauze, Secured with Secured with Secured with Tape Tape Tape Treatment Response Procedure Procedure Procedure Tolerated Well Tolerated Well Tolerated Well Pain Scale: 0-10 Numeric Is Patient Pain Free? Yes Yes Yes WC - Visit Discharge Discharge Condition Stable Stable Stable Ambulatory Status Ambulatory Ambulatory Ambulatory Transportation Private Auto Private Auto Private Auto Wound debrided: Subfirst metatarsal head Laterality: Right Type of Debridement: Excisional debridement Anesthesia Used: 4% Lidocaine Solution Depth: to bone - Debrided to subcu Percentage of wound debrided: 100 Instrument Used: #15 blade Tissue Removed: Callus core, fibrous, devitalized, biofilm, and slough tissue Severity: Fat Layer Exposed - Probes to bone, debrided fat level Amount of bleeding with debridement: Moderate Bleeding Controlled with: Pressure Patient tolerated procedure well - Additional Wound Wound debrided: Subfirst metatarsal head Laterality: Left Type of Debridement: Excisional debridement Anesthesia Used: 4% Lidocaine Solution Depth: to bone - Debrided to fat level Percentage of wound debrided: 100 Instrument Used: #15 blade Tissue Removed: Callus cap, fibrous, devitalized, biofilm, and slough tissue Severity: Fat Layer Exposed - Probes to bone, fat level debrided Amount of bleeding with debridement: Moderate Bleeding Controlled with: Pressure Patient tolerated procedure: Patient tolerated procedure well Assessment/Plan Active Problems Osteomyelitis (Acute) Pressure ulcer of left foot, stage 4 (Chronic) Delayed wound healing (Chronic) Steroid long-term use (Chronic) PAD (peripheral artery disease) (Chronic) Pressure ulcer of right foot, stage 4 (Acute) Corns and callosities (Chronic) Rheumatoid arthritis (Chronic) Assessment: Stage 4 pressure ulcer left plantar foot 1st metatarsal head. Stage 2 pressure ulcer left plantar foot 4th metatarsal head-healed. Stage 3 pressure ulcer left medial 1st metatarsal-healed. stage 4 pressure ulcer plantar right subfirst metatarsal head. osteomyelitis 1st metatarsal left foot. Rheumatoid arthritis. Chronic immunosuppression. Chronic prednisone use. Fat pad atrophy Plan: Patient seen and examined. Ulcerations remain stable and noninfected in appearance. Kylah's ulcers were evaluated and debrided today at the wound center after verbal consent obtained. Plantar first metatarsal wound has easily bone exposed. Xray 05/29/2020 did not show osteomyelitis. Given clilnical appearance MRI was ordered. MRI 06/25/20 showed evidence of osteomyelitis to diaphysis of 1st metatarsal. Discussed that bone is noted to be infected that surgical intervention with removal of the infected bone with amputation versus long-term course of IV antibiotics. Reviewed the risks and benefits of each option. Patient is reluctant to have an amputation. She would like to try antibiotics first. Cultures obtained 06/30/2020 did not show any growth. Possible previous antibiotics patient was on have cleared up skin infection but bone infection may remain. Dr Davis in Infectious disease saw patient and prescribed cephalexin and doxycycline for treatment. Patient has since finished these. LEAS 06/30/20 showed moderate distal small vessle disease bilaterally at the digits. The left foot was noted to have biphasic pulses with CRUZ of 1.27 and TBI of 0.37. The left PT was noncompressible. The right foot PT and DP were noncomressible and TBI of 0.4 with triphasic and biphasic pulsibles. Patient had procedure with Dr Oseguera 07/21/20. Patient reports that the procedure went well. Dr. Oseguera has no further interventions planned at this time. The etiology of her ulcers appears to be from pressure at sites of metatarsal heads as there is significant fat pad atrophy. Discussed with the patient the importance of proper shoe gear with good padding to supplement lost fat pad. This is most likey due to her rheumatoid arthritis, chronic prednisone treatment may also have a role in the nonhealing of the ulcers. Discussed with the patient possibility of ordering custom inserts self-pay. Patient will consider. Offloading was discussed, patient relates that she has a surgical shoe with forefoot offloaded. Patient presents today wearing the surgical shoe with offloading pad on her left foot. Recommend patient wear surgical shoe at this time. She was advised to try to avoid standing and being on her feet for long periods and to elevate her feet as much as possible. Patient has offlo ading pad placed into her tennis shoes bilateral. This was further modified in order to better offload the ulceration site. Patient wounds are too small for skin substitute applications. Patient also noted to not to be diabetic but does have history of osteomyelitis so may potentially be a candidate for hyperbaric oxygen therapy. She has since finished her course of antibiotics per infectious disease to treat the osteomyelitis. We will discuss to see if patient might be a potential candidate under nondiabetic guidelines. Encouraged protein rich diet and protein supplements. Advised to call with questions or concerns. Continue wound care to foot ulcerations daily. Follow-up in 1 week. This note was generated with [employer] dictation software. It may contain incorrect words, spelling, and punctuation that were not noted in checking the note before signing.
[2020-09-01 09:09] VITALS: BP 194/84; PULSE 83; RESP 16; TEMP 36.1; BMI 18.6
--- NOTE | 2020-09-01 18:33 | PCM.WC.PN ---
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 She has been receiving treatment to this area for the last [address] Poe has attempted to debride and close it surgically with sutures but it reopened and it hasn't healed. She has a history of ulcerations underneath her big toe on both feet. 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 Patient has had a recent culture on 05/11/20, positive for Staphylococcus lugendenosis. Another culture was taken which demonstrated staph epididymis. With most recent culture taken 07/01/2020 with no growth seen. She has previously demonstrated an apparent allergy to collagen hydrogel. The patient has had vascular studies, without evidence of significant superficial vein incompetence in the left lower extremity in 2017. Her noninvasive lower extremity arterial study reveals normal ankle?brachial indices bilaterally in 2017. New studies on 06/30/20 showed moderate distal small vessel disease bilaterally at the digits with some non compressible vessels. Patient saw her vascular surgeon, Dr Oseguera, who did intervention on the patient on 07/21/20. Dr. Oseguera has no further interventions planned at this time. She had MRI on 06/25/20 which showed osteomyelitis to left 1st metatarsal. Patient saw Dr Clements who started her on cephalexin and doxycycline to treat her osteomyelitis. The patient is noted to be on prednisone and methotrexate for her rheumatoid arthritis. These are acknowledged to be possible inhibitors to wound healing. Patient noted to have painful feet due to her rheumatoid arthritis. Patient had callus to right plantar first MPJ with noted underlying ulceration noted. Patient has had wound care in the past. Patient relates that she goes to special shoe store to get offloading insert added to her shoes to help prevent callus buildup. Progress of Wound: Stable Subjective Subjective: Patient is resting comfortably and denies any new pedal complains. Patient denies any nausea, fever, vomiting, chills, chest pain, shortness of breath, streaking, or purulence Objective Data Objective Data Vital Signs: Vital Signs Temp Pulse Resp BP 96.9 F L 83 16 194/84 H 09/01/20 09:09 09/01/20 09:09 09/01/20 09:09 09/01/20 09:09 Oxygen Delivery Method Room Air Weight: 46.266 kg Body Mass Index (BMI) 18.6 Assessment & Plan Assessment/Plan (1) Pressure ulcer of right foot, stage 4: Status: Acute Code(s): L89.894 - Pressure ulcer of other site, stage 4 (2) Pressure ulcer of left foot, stage 4: Status: Chronic Code(s): L89.894 - Pressure ulcer of other site, stage 4 (3) Osteomyelitis: Status: Suspected Code(s): M86.9 - Osteomyelitis, unspecified Qualifiers: Laterality: left Osteomyelitis location: foot Osteomyelitis type: other acute Qualified Code(s): M86.172 - Other acute osteomyelitis, left ankle and foot (4) PAD (peripheral artery disease): Status: Chronic Code(s): I73.9 - Peripheral vascular disease, unspecified (5) Delayed wound healing: Status: Chronic Code(s): T14.8XXD - Other injury of unspecified body region, subsequent encounter (6) Steroid long-term use: Status: Chronic (7) Corns and callosities: Status: Chronic Code(s): L84 - Corns and callosities (8) Rheumatoid arthritis: Status: Chronic Code(s): M06.9 - Rheumatoid arthritis, unspecified Qualifiers: Laterality: bilateral Rheumatoid arthritis location: foot Rheumatoid factor presence: unspecified presence Qualified Code(s): M06.9 - Rheumatoid arthritis, unspecified (9) Fat pad atrophy of foot: Status: Acute Code(s): L90.9 - Atrophic disorder of skin, unspecified Plan: Assessment: Stage 4 pressure ulcer left plantar foot 1st metatarsal head. stage 4 pressure ulcer plantar right subfirst metatarsal head. Stage 2 pressure ulcer left plantar foot 4th metatarsal head-healed. Stage 3 pressure ulcer left medial 1st metatarsal-healed. osteomyelitis 1st metatarsal left foot. Rheumatoid arthritis. Chronic immunosuppression with chronic steroid use with delayed healing Chronic prednisone use. Fat pad atrophy Plan: Patient seen and examined. Ulcerations remain stable and noninfected in appearance. Kylah's ulcers were evaluated and debrided today at the wound center after verbal consent obtained. Plantar first metatarsal wounds has easily bone exposed. Xray 05/29/2020 did not show osteomyelitis. Given clilnical appearance MRI was ordered. MRI 06/25/20 showed evidence of osteomyelitis to left diaphysis of 1st metatarsal. Cultures obtained 06/30/2020 did not show any growth. Possible previous antibiotics patient was on have cleared up skin infection but bone infection may remain. Dr Davis in Infectious disease saw patient and prescribed cephalexin and doxycycline for treatment. Patient has since finished these. LEAS 06/30/20 showed moderate distal small vessel disease bilaterally at the digits. The left foot was noted to have biphasic pulses with CRUZ of 1.27 and TBI of 0.37. The left PT was noncompressible. The right foot PT and DP were noncompressible and TBI of 0.4 with triphasic and biphasic pulses. Patient had procedure with Dr Oseguera 07/21/20. Patient reports that the procedure went well. Dr. Oseguera has no further interventions planned at this time. The etiology of her ulcers appears to be from pressure at sites of metatarsal heads as there is significant fat pad atrophy. Discussed with the patient the importance of proper shoe gear with good padding to supplement lost fat pad. This is most likely due to her rheumatoid arthritis, chronic prednisone treatment may also have a role in the nonhealing of the ulcers. Discussed with the patient possibility of ordering custom inserts self-pay. Patient will consider. Offloading was discussed, patient relates that she has a surgical shoe with forefoot offloaded. Patient presents today and tennis shoes with offloading inserts noted to bilateral shoes. Recommend patient wear surgical shoe at this time. She was advised to try to avoid standing and being on her feet for long periods and to elevate her feet as much as possible. Discussed importance of smoking cessation, blood sugar control, weight management, offloading, proper nutrition, and hygeine to optimize healing potential. Discussed that her chronic steroid use for her RA can impact wound healing as well as impact her body's ability to mount an immune response. Also her vascular disease may also be playing into her poor ability to heal. There is suspicion that osteomyelitis infection may still remain given factors that may be impeding wound healing as well as chronic bone exposure to bilateral 1st metatarsals now through the wounds. Upon previous discussion it was noted that the patient did not wish to undergo bone debridement given the extent of osteomyelitis per MRI as well as her already established history of poor wound healing. It was decided that it was not worth the risk of potentially creating a larger wound that potentially more bacteria could then use to infect the wound. The remaining bone exposure puts patient at clinical osteomyelitis since I began seeing patient. There is no definitive need to repeat imaging at the end of antibiotic therapy per ID with Dr Clements. Patient completed 6 week course of cephalexin and doxycycline. Patient wounds are too small for skin substitute applications. Patient also noted to not to be diabetic but does have history of osteomyelitis so may potentially be a candidate for hyperbaric oxygen therapy. She has since finished her course of antibiotics per infectious disease to treat the osteomyelitis. We will discuss to see if patient might be a potential candidate under nondiabetic guidelines. This would include further work up with labs, imaging, and clearance consultation. If patient is approved for hyperbaric oxygen therapy our goals would be to heal her wounds to bilateral feet while continuing regular debridements, monitoring, offloading, and medical optimizing and monitoring. Encouraged protein rich diet and protein supplements. Advised to call with questions or concerns. All questions answered. Continue wound care to foot ulcerations daily. Follow-up in 1 week. This note was generated with [employer] dictation software. It may contain incorrect words, spelling, and punctuation that were not noted in checking the note before signing. Physical Exam Const alert and no apparent distress General Appearance: cooperative and comfortable HEENT Head and Scalp: atraumatic Lymph Lymphatic: no lymphedema noted and lymphedema Resp normal respiratory effort Effort and Inspection: able to speak in complete sentences Extremity normal capillary refill, no calf tenderness and no pedal edema General Extremity: no tenderness to palpation of joints or extremities; Negative for clubbing or cyanosis Peripheral Pulses: Yes popliteal pulses present bilateral diminished and posterior tibial pulses present bilateral diminished Skin General Skin Exam: venous stasis; Negative for ecchymosis, erythema, eschar, pallor or dermatitis Rashes: no rashes Wounds: wounds noted Wound Narrative: ulcers noted to plantar first metatarsal head bilaterally No malodor, erythema, purulence, streaking, fluctuation, crepitus, or other signs of infection. Skin is atrophic and hairless. Granular base. Wounds probe to bone. There is significant amount of fat pad atrophy noted to bilateral feet secondary to patient's rheumatoid arthritis. There is noted callus buildup within the ulceration site with a overlying To the wounds. Neuro Gait (Neuro): normal gait and antalgic Sensory Exam: extremities light-touch: normal Motor Exam: strength 5/5 throughout Psych Appearance: appropriate Attitude: calm Debridement Note Debridement Note Post-Debridement Measurements and Additional Note: Post-Debridement Measurements/Treatment WC - Nurse 2 - General Ulcer CM Notes Start: 08/11/20 10:27 Freq: Status: Active Protocol: Activity Type Activity Date Activity User E-Sign Co-Sign Detail Recorded Client Recorded Date Recorded By Document 08/11/20 10:50 [id number] 08/11/20 10:53 Document 08/18/20 09:50 [id number] 08/18/20 10:01 Document 08/25/20 09:50 [id number] 08/25/20 09:57 Document 09/01/20 09:58 [id number] 09/01/20 10:07 08/11/20 08/18/20 08/25/20 10:50 09:50 09:50 Wound Center Nurse 2 5-right 1st metatarsal -Time 10:51 09:51 09:55 -Correct Patient Yes Yes Yes -Correct Side, Site, Position Yes Yes Yes -Correct Procedure Yes Yes Yes -Procedure Performed Yes Yes Yes -Type of Procedure Debridement Debridement Debridement -Clinical Debridement Subcutaneous Subcutaneous Subcutaneous -Tissue Removed Subcutaneous Subcutaneous Subcutaneous -Post Debridement (cm) - Length 0.4 0.4 0.4 -Post Debridement (cm) - Width 0.5 0.4 0.3 -Post Debridement (cm) - Depth 0.4 0.4 0.4 -Total Square (Post) (cm) 0.20 0.16 0.12 -Area of Debridement (cm) - Length 0.4 0.4 0.4 -Area of Debridement (cm) - Width 0.5 0.4 0.3 -Total Square (Area) (cm) 0.20 0.16 0.12 -Tunneling No No No -Undermining/Tunneling No No No -Circular Undermining No No No -Wound/Ulcer Outcome Not Healed Not Healed Not Healed -Ulcer Cleansing Rinsed/ Rinsed/ Rinsed/ Irrigated with Irrigated with Irrigated with Saline Saline Saline -Foul Odor after Cleansing No No No -Bioengineered Tissue No No No -Bleeding Controlled with Pressure Pressure Pressure -Offloading No No Yes -Type of Offloading Surgical Shoe -Treatment Response Procedure Procedure Procedure Tolerated Well Tolerated Well Tolerated Well -Debridement - Subq, 1st 20sq cm No Yes Yes #4 left medial hallux -Time 10:50 10:00 09:56 -Correct Patient Yes Yes Yes -Correct Side, Site, Position Yes Yes Yes -Correct Procedure Yes Yes Yes -Procedure Performed Yes Yes Yes -Type of Procedure Debridement Debridement Debridement -Clinical Debridement Subcutaneous Subcutaneous Subcutaneous -Tissue Removed Subcutaneous Subcutaneous Subcutaneous -Post Debridement (cm) - Length 0.3 0.2 0.4 -Post Debridement (cm) - Width 0.3 0.5 0.5 -Post Debridement (cm) - Depth 0.2 0.3 0.3 -Total Square (Post) (cm) 0.09 0.10 0.20 -Area of Debridement (cm) - Length 0.3 0.2 0.4 -Area of Debridement (cm) - Width 0.3 0.5 0.5 -Total Square (Area) (cm) 0.09 0.10 0.20 -Tunneling No No No -Undermining/Tunneling No No No -Circular Undermining No No No -Wound/Ulcer Outcome Not Healed Not Healed Not Healed -Ulcer Cleansing Rinsed/ Rinsed/ Rinsed/ Irrigated with Irrigated with Irrigated with Saline Saline Saline -Foul Odor after Cleansing No No No -Bioengineered Tissue No No No -Bleeding Controlled with Pressure Pressure Pressure -Offloading Yes Yes No -Type of Offloading Surgical Shoe Surgical Shoe -Treatment Response Procedure Procedure Procedure Tolerated Well Tolerated Well Tolerated Well -Debridement - Subq, 1st 20sq cm Yes No No Pain Scale: 0-10 Numeric Is Patient Pain Free? Yes Yes Yes 09/01/20 09:58 Wound Center Nurse 2 5-right 1st metatarsal -Time 09:58 -Correct Patient Yes -Correct Side, Site, Position Yes -Correct Procedure Yes -Procedure Performed Yes -Type of Procedure Debridement -Clinical Debridement Subcutaneous -Tissue Removed Subcutaneous -Post Debridement (cm) - Length 0.3 -Post Debridement (cm) - Width 0.2 -Post Debridement (cm) - Depth 0.4 -Total Square (Post) (cm) 0.06 -Area of Debridement (cm) - Length 0.3 -Area of Debridement (cm) - Width 0.2 -Total Square (Area) (cm) 0.06 -Tunneling No -Undermining/Tunneling No -Circular Undermining No -Wound/Ulcer Outcome Not Healed -Ulcer Cleansing Rinsed/ Irrigated with Saline -Foul Odor after Cleansing No -Bioengineered Tissue No -Bleeding Controlled with Pressure -Offloading No -Type of Offloading -Treatment Response Procedure Tolerated Well -Debridement - Subq, 1st 20sq cm Yes #4 left medial hallux -Time 09:59 -Correct Patient Yes -Correct Side, Site, Position Yes -Correct Procedure Yes -Procedure Performed Yes -Type of Procedure Debridement -Clinical Debridement Subcutaneous -Tissue Removed Subcutaneous -Post Debridement (cm) - Length 0.4 -Post Debridement (cm) - Width 0.5 -Post Debridement (cm) - Depth 0.3 -Total Square (Post) (cm) 0.20 -Area of Debridement (cm) - Length 0.4 -Area of Debridement (cm) - Width 0.5 -Total Square (Area) (cm) 0.20 -Tunneling No -Undermining/Tunneling No -Circular Undermining No -Wound/Ulcer Outcome Not Healed -Ulcer Cleansing Rinsed/ Irrigated with Saline -Foul Odor after Cleansing -Bioengineered Tissue No -Bleeding Controlled with Pressure -Offloading No -Type of Offloading -Treatment Response Procedure Tolerated Well -Debridement - Subq, 1st 20sq cm No Pain Scale: 0-10 Numeric Is Patient Pain Free? Yes WC - Nurse 3 - General Ulcer D/C NN Start: 08/11/20 10:27 Freq: Status: Active Protocol: Activity Type Activity Date Activity User E-Sign Co-Sign Detail Recorded Client Recorded Date Recorded By Document 08/11/20 11:07 DL [id number] 08/11/20 11:08 DL Document 08/18/20 10:08 [facility] [id number] 08/18/20 10:09 BMF Document 08/25/20 10:49 DL [id number] 08/25/20 10:50 DL Document 09/01/20 10:16 DL [id number] 09/01/20 10:18 DL 08/11/20 08/18/20 08/25/20 11:07 10:08 10:49 Wound Care Nurse 3 5-right 1st metatarsal -Ulcer Cleansing Rinsed/ Rinsed/ Rinsed/ Irrigated with Irrigated with Irrigated with Saline Saline Saline -Foul Odor after Cleansing No No No -Primary Dressing Applied Other -Other Dressing hydrogel HYDROGEL hydrogel -Primary Dressing Covered/Secured with Dry Gauze & Dry Gauze & Dry Gauze & Roll Gauze, Roll Gauze, Roll Gauze, Secured with Secured with Secured with Tape Tape Tape #4 left medial hallux -Ulcer Cleansing Rinsed/ Rinsed/ Rinsed/ Irrigated with Irrigated with Irrigated with Saline Saline Saline -Foul Odor after Cleansing No No No -Primary Dressing Applied Other -Other Dressing hydrogel HYDROGEL hydrogel -Primary Dressing Covered/Secured with Dry Gauze & Dry Gauze & Dry Gauze & Roll Gauze, Roll Gauze, Roll Gauze, Secured with Secured with Secured with Tape Tape Tape Treatment Response Procedure Procedure Procedure Tolerated Well Tolerated Well Tolerated Well Pain Scale: 0-10 Numeric Is Patient Pain Free? Yes Yes Yes WC - Visit Discharge Discharge Condition Stable Stable Stable Ambulatory Status Ambulatory Ambulatory Ambulatory Transportation Private Auto Private Auto Private Auto Medication Reconcilliation completed & provided to patient/care provider Clinical Summary of Care Provided 09/01/20 10:16 Wound Care Nurse 3 5-right 1st metatarsal -Ulcer Cleansing Rinsed/ Irrigated with Saline -Foul Odor after Cleansing -Primary Dressing Applied -Other Dressing hydrogel, -Primary Dressing Covered/Secured with Dry Gauze, Secured with Tape #4 left medial hallux -Ulcer Cleansing Rinsed/ Irrigated with Saline -Foul Odor after Cleansing -Primary Dressing Applied -Other Dressing hydrogel -Primary Dressing Covered/Secured with Dry Gauze, Secured with Tape Treatment Response Pain Scale: 0-10 Numeric Is Patient Pain Free? Yes WC - Visit Discharge Discharge Condition Stable Ambulatory Status Ambulatory Transportation Private Auto Medication Reconcilliation completed & No provided to patient/care provider Clinical Summary of Care Provided Yes Wound debrided: Plantar first metatarsal head Laterality: Right Type of Debridement: Excisional debridement Anesthesia Used: 4% Lidocaine Solution Depth: to bone (Debrided to subcu) Percentage of wound debrided: 100 Instrument Used: 3mm curette Tissue Removed: includes fibrous, devitalized, biofilm, callus and slough tissue Severity: Fat Layer Exposed Amount of bleeding with debridement: Mild Bleeding Controlled with: Pressure Patient tolerated procedure: Patient tolerated procedure well Additional Wound Wound debrided: Plantar first metatarsal head Laterality: Left Type of Debridement: Excisional debridement Anesthesia Used: 4% Lidocaine Solution Depth: to bone (Debrided to subcu) Percentage of wound debrided: 100 Instrument Used: 3mm curette Severity: Fat Layer Exposed Amount of bleeding with debridement: Mild Bleeding Controlled with: Pressure Patient tolerated procedure: Patient tolerated procedure well
== END 2020-09-04 23:59 ==
LOC: WC 09:30
PROVIDERS: PCP Physician Assistant; Visit Provider Podiatrist Foot & Ankle Surgery
DX: L89.894 Pressure ulcer of other site, stage 4 (principal); L89.893 Pressure ulcer of other site, stage 3; L89.892 Pressure ulcer of other site, stage 2; M06.9 Rheumatoid arthritis, unspecified; M86.9 Osteomyelitis, unspecified; D84.821 Immunodeficiency due to drugs; Z79.52 Long term (current) use of systemic steroids; I73.9 Peripheral vascular disease, unspecified; L84 Corns and callosities; I67.82 Cerebral ischemia; E65 Localized adiposity
CPT/HCPCS: 11042

== ENCOUNTER 2020-09-22 10:15 | Outpatient (RCR) | payer MEDICARE, SELFPAY ==
[2020-09-05 00:40] VITALS: BP 194/84; PULSE 83; RESP 16; TEMP 36.1
[2020-09-08 10:23] VITALS: BP 175/68; PULSE 80; RESP 18; TEMP 36.4; BMI 18.6
--- NOTE | 2020-09-08 11:39 | PN.PCM_ITS ---
History of Present Illness Date of Service: 09/08/20 Chief Complaint: Pressure ulcer plantar bilateral 1st metatarsal History of Wound: Kylah is a 75-year-old female who was referred here for treatment of an ulcer at the base of her great toe at her metatarsal head from Dr. 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 She has been receiving treatment to this area for the last [address] Poe has attempted to debride and close it surgically with sutures but it reopened and it hasn't healed. She has a history of ulcerations underneath her big toe on both feet. 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 Patient has had a recent culture on 05/11/20, positive for Staphylococcus lugendenosis. Another culture was taken which demonstrated staph epididymis. With most recent culture taken 07/01/2020 with no growth seen. She has previously demonstrated an apparent allergy to collagen hydrogel. The patient has had vascular studies, without evidence of significant superficial vein incompetence in the left lower extremity in 2017. Her noninvasive lower extremity arterial study reveals normal ankle?brachial indices bilaterally in 2017. New studies on 06/30/20 showed moderate distal small vessel disease bilaterally at the digits with some non compressible vessels. Patient saw her vascular surgeon, Dr Oseguera, who did intervention on the patient on 07/21/20. Dr. Oseguera has no further interventions planned at this time. She had MRI on 06/25/20 which showed osteomyelitis to left 1st metatarsal. Patient saw Dr Clements who started her on cephalexin and doxycycline to treat her osteomyelitis. The patient is noted to be on prednisone and methotrexate for her rheumatoid arthritis. These are acknowledged to be possible inhibitors to wound healing. Patient noted to have painful feet due to her rheumatoid arthritis. Patient had callus to right plantar first MPJ with noted underlying ulceration noted. Patient has had wound here in the past. Patient relates that she goes to special shoe store to get offloading insert added to her shoes to help prevent callus buildup. Progress of Wound: Stable Subjective Subjective: Patient seen and examined resting comfortably. Patient denies any new pedal complaints. Patient denies any nausea, fever, chills, chest pain, shortness of breath, cough, streaking, purulence, vomiting. Objective Data Objective Data Vital Signs: Vital Signs Temp Pulse Resp BP 97.5 F L 80 18 175/68 H 09/08/20 10:23 09/08/20 10:23 09/08/20 10:09/08/20 10:23 Weight: 102 lb Body Mass Index (BMI) 18.6 Assessment & Plan Assessment/Plan (1) Pressure ulcer of right foot, stage 4: Status: Acute Code(s): L89.894 - Pressure ulcer of other site, stage 4 (2) Pressure ulcer of toe of left foot, stage 4: Status: Chronic Code(s): L89.894 - Pressure ulcer of other site, stage 4 (3) Fat pad atrophy of foot: Status: Acute Code(s): L90.9 - Atrophic disorder of skin, unspecified (4) Osteomyelitis: Status: Suspected Code(s): M86.9 - Osteomyelitis, unspecified Qualifiers: Laterality: left Osteomyelitis location: foot Osteomyelitis type: other acute Qualified Code(s): M86.172 - Other acute osteomyelitis, left ankle and foot (5) Delayed wound healing: Status: Chronic Code(s): T14.8XXD - Other injury of unspecified body region, subsequent encounter (6) Steroid long-term use: Status: Chronic (7) PAD (peripheral artery disease): Status: Chronic Code(s): I73.9 - Peripheral vascular disease, unspecified (8) Corns and callosities: Status: Chronic Code(s): L84 - Corns and callosities (9) Rheumatoid arthritis: Status: Chronic Code(s): M06.9 - Rheumatoid arthritis, unspecified Qualifiers: Laterality: bilateral Rheumatoid arthritis location: foot Rheumatoid factor presence: unspecified presence Qualified Code(s): M06.9 - Rheumatoid arthritis, unspecified Plan: Patient seen and examined. Ulcerations remain stable and clinically noninfected in appearance. Kylah's ulcers were evaluated and debrided today at the wound center after verbal consent obtained. Plantar first metatarsal wounds bilaterally has easily bone exposed. Xray 05/29/2020 did not show osteomyelitis. Given clinical appearance MRI was ordered. MRI 06/25/20 showed evidence of osteomyelitis to left diaphysis of 1st metatarsal. Cultures obtained 06/30/2020 did not show any growth. Possible previous antibiotics patient was on have cleared up skin infection but bone infection may remain. Dr Davis in Infectious disease saw patient and prescribed cephalexin and doxycycline for treatment. Patient has since finished these. LEAS 06/30/20 showed moderate distal small vessel disease bilaterally at the digits. The left foot was noted to have biphasic pulses with CRUZ of 1.27 and TBI of 0.37. The left PT was noncompressible. The right foot PT and DP were noncompressible and TBI of 0.4 with triphasic and biphasic pulses. Patient had procedure with Dr Oseguera 07/21/20. Patient reports that the procedure went well. Dr. Oseguera has no further interventions planned at this time. The etiology of her ulcers appears to be from pressure at sites of metatarsal heads as there is significant fat pad atrophy. Discussed with the patient the importance of proper shoe gear with good padding to supplement lost fat pad. This is most likely due to her rheumatoid arthritis, chronic prednisone treatment may also have a role in the nonhealing of the ulcers. Discussed with the patient possibility of ordering custom inserts self-pay. Patient will consider. Offloading was discussed, patient relates that she has a surgical shoe with forefoot offloaded. Patient presents today and tennis shoes with offloading inserts noted to bilateral shoes. Recommend patient wear surgical shoe at this time. She was advised to try to avoid standing and being on her feet for long periods and to elevate her feet as much as possible. Patient also brought in her house slippers that she wears while indoors to have additional offloading pad placed inside. Discussed importance of smoking cessation, blood sugar control, weight management, offloading, proper nutrition, and hygiene to optimize healing potential. Discussed that her chronic steroid use for her RA can impact wound healing as well as impact her body's ability to mount an immune response. Also her vascular disease may also be playing into her poor ability to heal. There is suspicion that osteomyelitis infection may still remain given factors that may be impeding wound healing as well as chronic bone exposure to bilateral 1st metatarsals now through the wounds. Upon previous discussion it was noted that the patient did not wish to undergo bone debridement given the extent of osteomyelitis per MRI as well as her already established history of poor wound healing. It was decided that it was not worth the risk of potentially creating a larger wound that potentially more bacteria could then use to infect the wound. The remaining bone exposure puts patient at clinical osteomyelitis since I began seeing patient. There is no definitive need to repeat imaging at the end of antibiotic therapy per ID with Dr Clements. Patient completed 6 week course of cephalexin and doxycycline. Patient wounds are too small for skin substitute applications. Patient also noted to not to be diabetic but does have history of osteomyelitis so may potentially be a candidate for hyperbaric oxygen therapy. She has since finished her course of antibiotics per infectious disease to treat the osteomyelitis. We will discuss to see if patient might be a potential candidate under nondiabetic guidelines. This would include further work up with labs, imaging, and clearance consultation. If patient is approved for hyperbaric oxygen therapy our goals would be to heal her wounds to bilateral feet while continuing regular debridements, monitoring, offloading, and medical optimizing and monitoring. Discussed this option with the patient. Patient would like to discuss it with her and before making the time commitment. Encouraged protein rich diet and protein supplements. Advised to call with questions or concerns. All questions answered. Continue wound care to foot ulcerations daily. Follow-up in 1 week. This note was generated with [employer] dictation software. It may contain incorrect words, spelling, and punctuation that were not noted in checking the note before signing. Physical Exam Const alert and no apparent distress General Appearance: cooperative and comfortable HEENT Head and Scalp: atraumatic Lymph Lymphatic: no lymphedema noted Resp normal respiratory effort Effort and Inspection: able to speak in complete sentences Extremity normal capillary refill, no calf tenderness and no pedal edema General Extremity: no tenderness to palpation of joints or extremities; Negative for clubbing or cyanosis Peripheral Pulses: Yes posterior tibial pulses present bilateral diminished and dorsalis pedis pulses present bilateral diminished Skin General Skin Exam: Negative for ecchymosis, erythema, eschar, pallor or dermatitis Rashes: no rashes Wounds: wounds noted Wound Narrative: ulcers noted to plantar first metatarsal head bilaterally No malodor, erythema, purulence, streaking, fluctuation, crepitus, or other signs of infection. Skin is atrophic and hairless. Granular base. Wounds prob e to bone. There is significant amount of fat pad atrophy noted to bilateral feet secondary to patient's rheumatoid arthritis. There is noted callus buildup within the ulceration site with and overlying To the wounds. Neuro Gait (Neuro): normal gait Sensory Exam: extremities light-touch: decreased Motor Exam: strength 5/5 throughout Psych Appearance: appropriate Attitude: calm Debridement Note Debridement Note Post-Debridement Measurements and Additional Note: Post-Debridement Measurements/Treatment WC - Nurse 2 - General Ulcer CM Notes Start: 09/08/20 10:23 Freq: Status: Active Protocol: Activity Type Activity Date Activity User E-Sign Co-Sign Detail Recorded Client Recorded Date Recorded By Document 09/08/20 10:45 REJI [id number] 09/08/20 10:55 REJI 09/08/20 10:45 Wound Center Nurse 2 5-right 1st metatarsal -Time 10:52 -Correct Patient Yes -Correct Side, Site, Position Yes -Correct Procedure Yes -Procedure Performed Yes -Type of Procedure Debridement -Clinical Debridement Subcutaneous -Tissue Removed Subcutaneous -Post Debridement (cm) - Length 0.3 -Post Debridement (cm) - Width 0.2 -Post Debridement (cm) - Depth 0.4 -Total Square (Post) (cm) 0.06 -Area of Debridement (cm) - Length 0.3 -Area of Debridement (cm) - Width 0.2 -Total Square (Area) (cm) 0.06 -Tunneling No -Undermining/Tunneling No -Circular Undermining No -Wound/Ulcer Outcome Not Healed -Ulcer Cleansing Rinsed/ Irrigated with Saline -Foul Odor after Cleansing No -Bioengineered Tissue No -Bleeding Controlled with Pressure -Offloading Yes -Type of Offloading Surgical Shoe -Treatment Response Procedure Tolerated Well -Debridement - Subq, 1st 20sq cm Yes #4 left medial hallux -Time 10:54 -Correct Patient Yes -Correct Side, Site, Position Yes -Correct Procedure Yes -Procedure Performed Yes -Type of Procedure Debridement -Clinical Debridement Subcutaneous -Tissue Removed Subcutaneous -Post Debridement (cm) - Length 0.4 -Post Debridement (cm) - Width 0.3 -Post Debridement (cm) - Depth 0.3 -Total Square (Post) (cm) 0.12 -Area of Debridement (cm) - Length 0.4 -Area of Debridement (cm) - Width 0.3 -Total Square (Area) (cm) 0.12 -Tunneling No -Undermining/Tunneling No -Circular Undermining No -Wound/Ulcer Outcome Healed- Surgical Closure -Foul Odor after Cleansing No -Bioengineered Tissue No -Bleeding Controlled with Pressure -Offloading Yes -Type of Offloading Surgical Shoe -Treatment Response Procedure Tolerated Well -Debridement - Subq, 1st 20sq cm No Pain Scale: 0-10 Numeric Is Patient Pain Free? Yes WC - Nurse 3 - General Ulcer D/C NN Start: 09/08/20 10:23 Freq: Status: Active Protocol: Activity Type Activity Date Activity User E-Sign Co-Sign Detail Recorded Client Recorded Date Recorded By Document 09/08/20 11:27 MW [id number] 09/08/20 11:28 MW 09/08/20 11:27 Wound Care Nurse 3 5-right 1st metatarsal -Ulcer Cleansing Rinsed/ Irrigated with Saline -Foul Odor after Cleansing No -Negative Pressure Wound Therapy N/A -Primary Dressing Applied C Hydrogel ($) -Primary Dressing Covered/Secured with Dry Gauze & Roll Gauze, Secured with Tape #4 left medial hallux -Ulcer Cleansing Rinsed/ Irrigated with Saline -Foul Odor after Cleansing No -Negative Pressure Wound Therapy N/A -Other Dressing c.hydrogel -Primary Dressing Covered/Secured with Dry Gauze & Roll Gauze, Secured with Tape Treatment Response Procedure Tolerated Well Pain Scale: 0-10 Numeric Is Patient Pain Free? Yes Teaching: Wound Center *Hyperbaric Medicine (HBO) -Person Taught Patient,Family -Teaching Method Discussion -Response to teaching Verbalize understanding WC - Visit Discharge Discharge Condition Stable Ambulatory Status Ambulatory Transportation Private Auto Accompanied by Medication Reconcilliation completed & No provided to patient/care provider Clinical Summary of Care Provided Yes Wound debrided: Plantar first metatarsal head Laterality: Right Type of Debridement: Excisional debridement Anesthesia Used: 4% Lidocaine Solution Depth: to bone Percentage of wound debrided: 100 Instrument Used: 3mm curette Tissue Removed: includes fibrous, devitalized, biofilm, callus and slough tissue Severity: Necrosis of Bone (Debrided only subcu) Amount of bleeding with debridement: Mild Bleeding Controlled with: Pressure Patient tolerated procedure: Patient tolerated procedure well Additional Wound Wound debrided: Plantar first metatarsal head Laterality: Left Type of Debridement: Excisional debridement Anesthesia Used: 4% Lidocaine Solution Depth: to bone (Debrided only to subcu) Percentage of wound debrided: 100 Instrument Used: 3mm curette Tissue Removed: Includes fibrous, devitalized, biofilm, callus and slough tissue Severity: Necrosis of Bone (Debrided to subcu) Amount of bleeding with debridement: Mild Bleeding Controlled with: Pressure Patient tolerated procedure: Patient tolerated procedure well
[2020-09-15 10:49] VITALS: BP 160/97; PULSE 90; RESP 18; TEMP 36.3; BMI 18.6
--- NOTE | 2020-09-15 11:55 | PCM.WC.PN ---
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 She has been receiving treatment to this area for the last [address] Poe has attempted to debride and close it surgically with sutures but it reopened and it hasn't healed. She has a history of ulcerations underneath her big toe on both feet. 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 Patient has had a recent culture on 05/11/20, positive for Staphylococcus lugendenosis. Another culture was taken which demonstrated staph epididymis. With most recent culture taken 07/01/2020 with no growth seen. She has previously demonstrated an apparent allergy to collagen hydrogel. The patient has had vascular studies, without evidence of significant superficial vein incompetence in the left lower extremity in 2017. Her noninvasive lower extremity arterial study reveals normal ankle?brachial indices bilaterally in 2017. New studies on 06/30/20 showed moderate distal small vessel disease bilaterally at the digits with some non compressible vessels. Patient saw her vascular surgeon, Dr Oseguera, who did intervention on the patient on 07/21/20. Dr. Oseguera has no further interventions planned at this time. She had MRI on 06/25/20 which showed osteomyelitis to left 1st metatarsal. Patient saw Dr Clements who started her on cephalexin and doxycycline to treat her osteomyelitis. The patient is noted to be on prednisone and methotrexate for her rheumatoid arthritis. These are acknowledged to be possible inhibitors to wound healing. Patient noted to have painful feet due to her rheumatoid arthritis. Patient had callus to right plantar first MPJ with noted underlying ulceration noted. Patient has had wound here in the past. Patient relates that she goes to special shoe store to get offloading insert added to her shoes to help prevent callus buildup. Patient relates addition of pads to her slippers of also been helpful. Progress of Wound: Stable, callus cap noted over wounds again. Subjective Subjective: Patient seen and examined resting comfortably. Patient denies any new pedal complaints. Patient denies any nausea, fever, chills, chest pain, shortness of breath, cough, streaking, purulence, vomiting. Patient relates that addition of offloading pad to slippers have been helpful. Objective Data Objective Data Vital Signs: Vital Signs Temp Pulse Resp BP 97.4 F L 90 18 160/97 H 09/15/20 10:49 09/15/20 10:49 09/15/20 10:49 09/15/20 10:49 Weight: 46.266 kg Body Mass Index (BMI) 18.6 Assessment & Plan Assessment/Plan (1) Pressure ulcer of right foot, stage 4: (2) Pressure ulcer of toe of left foot, stage 4: (3) Fat pad atrophy of foot: (4) Osteomyelitis: QUALIFIERS: Laterality: left Osteomyelitis location: foot Osteomyelitis type: other acute Qualified Code(s): M86.172 - Other acute osteomyelitis, left ankle and foot (5) Delayed wound healing: (6) Steroid long-term use: (7) PAD (peripheral artery disease): (8) Corns and callosities: (9) Rheumatoid arthritis: QUALIFIERS: Laterality: bilateral Rheumatoid arthritis location: foot Rheumatoid factor presence: unspecified presence Qualified Code(s): M06.9 - Rheumatoid arthritis, unspecified PLAN: Patient seen and examined. Ulcerations remain stable and clinically noninfected in appearance. Serous drainage is noted to come out of right foot wound upon removal of callus. This was cultured. There is no clinical signs of infection even though wound probes to bone. Patient may not amount of much of a clinical response to infection given chronic steroid use for her rheumatoid arthritis. Will await culture results before starting any potential antibiotics. Kylah's ulcers were evaluated and debrided today at the wound center after verbal consent obtained. Plantar first metatarsal wounds bilaterally has easily bone exposed. Left foot xray 05/29/2020 did not show osteomyelitis. Given clinical appearance MRI was ordered. MRI 06/25/20 showed evidence of osteomyelitis to left diaphysis of 1st metatarsal. Cultures obtained 06/30/2020 did not show any growth. Possible previous antibiotics patient was on have cleared up skin infection but bone infection may remain. Dr Davis in Infectious disease saw patient and prescribed cephalexin and doxycycline for treatment. Patient has since finished these. LEAS 06/30/20 showed moderate distal small vessel disease bilaterally at the digits. The left foot was noted to have biphasic pulses with CRUZ of 1.27 and TBI of 0.37. The left PT was noncompressible. The right foot PT and DP were noncompressible and TBI of 0.4 with triphasic and biphasic pulses. Patient had procedure with Dr Oseguera 07/21/20. Patient reports that the procedure went well. Dr. Oseguera has no further interventions planned at this time. The etiology of her ulcers appears to be from pressure at sites of metatarsal heads as there is significant fat pad atrophy. Discussed with the patient the importance of proper shoe gear with good padding to supplement lost fat pad. This is most likely due to her rheumatoid arthritis, chronic prednisone treatment may also have a role in the nonhealing of the ulcers. Discussed with the patient possibility of ordering custom inserts self-pay. Patient will consider. Offloading was discussed, patient relates that she has a surgical shoe with forefoot offloaded. Patient presents today and tennis shoes with offloading inserts noted to bilateral shoes. Recommend patient wear surgical shoe at this time. She was advised to try to avoid standing and being on her feet for long periods and to elevate her feet as much as possible. Patient slippers which she wears well indoors have also been adjusted with an offloading insert bilaterally. Patient relates that these been working well for her. Discussed importance of smoking cessation, blood sugar control, weight management, offloading, proper nutrition, and hygiene to optimize healing potential. Discussed that her chronic steroid use for her RA can impact wound healing as well as impact her body's ability to mount an immune response. Also her vascular disease may also be playing into her poor ability to heal. Cultures obtained 09/15/2020 demonstrated Staphylococcus lugdunensis and Corynebacterium species. Patient was contacted and started on antibiotics, doxycycline, 09/19/20 which was sent to patient's pharmacy There is suspicion that osteomyelitis infection may still remain given factors that may be impeding wound healing as well as chronic bone exposure to bilateral 1st metatarsals now through the wounds. Upon previous discussion it was noted that the patient did not wish to undergo bone debridement given the extent of osteomyelitis per MRI as well as her already established history of poor wound healing. It was decided that it was not worth the risk of potentially creating a larger wound that potentially more bacteria could then use to infect the wound. The remaining bone exposure puts patient at clinical osteomyelitis since I began seeing patient. There is no definitive need to repeat imaging at the end of antibiotic therapy per ID with Dr Clements. Patient completed 6 week course of cephalexin and doxycycline. Patient wounds are too small for skin substitute applications. Patient also noted to not to be diabetic but does have history of osteomyelitis so may potentially be a candidate for hyperbaric oxygen therapy. She has since finished her course of antibiotics per infectious disease to treat the osteomyelitis. We will discuss to see if patient might be a potential candidate under nondiabetic guidelines. This would include further work up with labs, imaging, and clearance consultation. If patient is approved for hyperbaric oxygen therapy our goals would be to heal her wounds to bilateral feet while continuing regular debridements, monitoring, offloading, and medical optimizing and monitoring. Patient relates that she would like to move forward with the work-up for HBO therapy. A chest x-ray was ordered for starting of this work-up. Encouraged protein rich diet and protein supplements. Advised to call with questions or concerns. All questions answered. Continue wound care to foot ulcerations daily. Follow-up in 1 week. This note was generated with [employer] dictation software. It may contain incorrect words, spelling, and punctuation that were not noted in checking the note before signing. The problems addressed require a low medical decision making level which includes two or more minor problems, a stable chronic illness, or an acute uncomplicated illness or injury. Physical Exam Const alert and no apparent distress General Appearance: cooperative and comfortable Lymph Lymphatic: no lymphedema noted Resp normal respiratory effort Effort and Inspection: able to speak in complete sentences Extremity normal capillary refill, no calf tenderness and no pedal edema General Extremity: Negative for clubbing or cyanosis Peripheral Pulses: Yes posterior tibial pulses present bilateral diminished and dorsalis pedis pulses present bilateral diminished Skin General Skin Exam: Negative for ecchymosis, erythema, eschar, pallor or dermatitis Rashes: no rashes Wounds: wounds noted Wound Narrative: ulcers noted to plantar first metatarsal head bilaterally No malodor, erythema, purulence, streaking, fluctuation, crepitus. Skin is atrophic and hairless. Granular base. Wounds probe to bone bilaterally. Upon removal of the callus To the right plantar first metatarsal wound drainage was expressed. This drainage was cultured. There is no clinical signs of infection though the wound probes directly to bone which is concerning. There is significant amount of fat pad atrophy noted to bilateral feet secondary to patient's rheumatoid arthritis. There is noted callus buildup within the ulceration site with and overlying the wounds. Neuro Gait (Neuro): normal gait Sensory Exam: extremities light-touch: decreased Motor Exam: strength 5/5 throughout Psych Appearance: appropriate Attitude: calm Debridement Note Debridement Note Post-Debridement Measurements and Additional Note: Post-Debridement Measurements/Treatment SHAHANA - Nurse 1 - General Ulcer Assessment Start: 09/08/20 10:23 Freq: Status: Active Protocol: GEORGE Activity Type Activity Date Activity User E-Sign Co-Sign Detail Recorded Client Recorded Date Recorded By Document 09/08/20 10:23 DL [id number] 09/08/20 10:32 DL Document 09/15/20 10:49 DL [id number] 09/15/20 10:58 DL 09/08/20 09/15/20 10:23 10:49 WC - Today's Visit Information Type of service Follow-up Visit Follow-up Visit (Physician/FUR DRUMMER (Physician/FUR DRUMMER ) ) Arrival Mode Ambulatory Ambulatory Transfer Assistance None None Patient Identification Verified (Name & Yes Yes ) Patient Requires Transmission-Based No Precautions Height and Weight Body Mass Index (BMI) 18.6 18.6 BMI Classification Normal Normal Vital Signs Temperature (97.8 F-99.1 F) 97.5 F L 97.4 F L Temperature Source Temporal Temporal Pulse Rate (60-100) 80 90 Pulse Location Monitor Monitor Respiratory Rate (12-18) 18 18 Respiratory rate source Observation Observation Blood Pressure (90/60-120/80) 175/68 H 160/97 H Blood Pressure Mean (mm Hg) 103 118 Source Monitor Monitor History Since Last Visit- (Skip if this is Patient's initial visit) Have you changed medications since your No No last visit? Any new allergies or adverse reactions No No Had a fall/change in ADL's that may No No increase risk of falls Signs or symptoms of abuse and/or No No neglect since last visit Have you been in the hospital since your No No last visit? Has dressing in place as prescribed Yes Yes Has compression in place as prescribed N/A N/A Has offloadiing in place as prescribed Yes Yes Experienced any changes in pain level or No No management Pain Scale: 0-10 Numeric Is Patient Pain Free? Yes Yes - Nurse 1 - General Ulcer Measurement Start: 09/08/20 10:23 Freq: Status: Active Protocol: Activity Type Activity Date Activity User E-Sign Co-Sign Detail Recorded Client Recorded Date Recorded By Document 09/08/20 10:23 DL [id number] 09/08/20 10:32 DL Document 09/15/20 10:49 DL [id number] 09/15/20 10:58 DL Edit Result 09/15/20 10:49 DL (1) [id number] 09/15/20 11:01 DL (1) #4 left medial hallux - Current Size (cm) - Width 2 => 0.2 - Total Square Cm 0.4 => 0.04 - Maximum Distance #2 (cm) => 0.3 - Circular Undermining => Yes 09/08/20 09/15/20 10:23 10:49 Wound Center Nurse 1 5-right 1st metatarsal -Current Size (cm) - Length 0.1 0.1 -Current Size (cm) - Width 0.1 0.1 -Current Size (cm) - Depth 0.1 0.1 -Total Square Cm 0.01 0.01 -Photo Taken No No -Exudate Amt None Present None Present -Wound Margin Thickened Well Defined, Not Attached -Granulation Amt Large (67-100%) Small (1-33%) -Granulation Quality Pale Pale -Necrosis Amt None Present (0 None Present (0 %) %) -Structure Exposed N/A N/A -Texture (Анна-wound Skin Appearance) Callus,Scarring Callus -Moisture (Анна-wound Skin Appearance) Dry/Scaly Dry/Scaly -Color (Анна-wound Skin Appearance) Hemosiderin No Abnormality Staining -Temperature (Анна-wound Skin No Abnormality No Abnormality Appearance) (Pt Warm) (Pt Warm) -Tenderness on Palpation (Анна-wound No No Skin Appearance) -Ulcer Cleansing Rinsed/ Rinsed/ Irrigated with Irrigated with Saline Saline -Foul Odor after Cleansing No No -Anesthetic Used 5% Lidocaine 5% Lidocaine Gel Gel #4 left medial hallux -Current Size (cm) - Length 0.3 0.2 -Current Size (cm) - Width 0.3 0.2 -Current Size (cm) - Depth 0.3 0.4 -Total Square Cm 0.09 0.04 -Photo Taken No No -Maximum Distance #2 (cm) 0.2 0.3 -Circular Undermining Yes Yes -Exudate Amt None Present Small -Exudate Type Serosanguineous -Wound Margin Thickened Thickened -Granulation Amt Large (67-100%) Small (1-33%) -Granulation Quality Pale Pale -Necrosis Amt Small (1-33%) Small (1-33%) -Necrotic Tissue Type Adherent Slough Adherent Slough -Structure Exposed N/A N/A -Texture (Анна-wound Skin Appearance) Callus,Scarring Callus -Moisture (Анна-wound Skin Appearance) Dry/Scaly Dry/Scaly -Color (Анна-wound Skin Appearance) Hemosiderin Assessed Staining -Temperature (Анна-wound Skin No Abnormality No Abnormality Appearance) (Pt Warm) (Pt Warm) -Tenderness on Palpation (Анна-wound No Yes Skin Appearance) -Ulcer Cleansing Rinsed/ Rinsed/ Irrigated with Irrigated with Saline Saline -Foul Odor after Cleansing No No -Anesthetic Used 5% Lidocaine 4% Lidocaine Gel Solution WC - Nurse 2 - General Ulcer CM Notes Start: 09/08/20 10:23 Freq: Status: Active Protocol: Activity Type Activity Date Activity User E-Sign Co-Sign Detail Recorded Client Recorded Date Recorded By Document 09/08/20 10:45 JF [id number] 09/08/20 10:55 Document 09/15/20 11:21 JF [id number] 09/15/20 11:30 09/08/20 09/15/20 10:45 11:21 Wound Center Nurse 2 5-right 1st metatarsal -Time 10:52 11:22 -Correct Patient Yes Yes -Correct Side, Site, Position Yes Yes -Correct Procedure Yes Yes -Procedure Performed Yes Yes -Type of Procedure Debridement Debridement -Clinical Debridement Subcutaneous Subcutaneous -Tissue Removed Subcutaneous Subcutaneous -Post Debridement (cm) - Length 0.3 0.2 -Post Debridement (cm) - Width 0.2 0.2 -Post Debridement (cm) - Depth 0.4 0.6 -Total Square (Post) (cm) 0.06 0.04 -Area of Debridement (cm) - Length 0.3 0.2 -Area of Debridement (cm) - Width 0.2 0.2 -Total Square (Area) (cm) 0.06 0.04 -Tunneling No No -Undermining/Tunneling No No -Circular Undermining No No -Wound/Ulcer Outcome Not Healed Not Healed -Ulcer Cleansing Rinsed/ Rinsed/ Irrigated with Irrigated with Saline Saline -Foul Odor after Cleansing No No -Bioengineered Tissue No No -Bleeding Controlled with Pressure Pressure -Offloading Yes No -Type of Offloading Surgical Shoe -Treatment Response Procedure Procedure Tolerated Well Tolerated Well -Debridement - Subq, 1st 20sq cm Yes Yes #4 left medial hallux -Time 10:54 11:22 -Correct Patient Yes Yes -Correct Side, Site, Position Yes Yes -Correct Procedure Yes Yes -Procedure Performed Yes Yes -Type of Procedure Debridement Debridement -Clinical Debridement Subcutaneous Subcutaneous -Tissue Removed Subcutaneous Subcutaneous -Post Debridement (cm) - Length 0.4 0.3 -Post Debridement (cm) - Width 0.3 0.4 -Post Debridement (cm) - Depth 0.3 0.4 -Total Square (Post) (cm) 0.12 0.12 -Area of Debridement (cm) - Length 0.4 0.3 -Area of Debridement (cm) - Width 0.3 0.4 -Total Square (Area) (cm) 0.12 0.12 -Tunneling No No -Undermining/Tunneling No No -Circular Undermining No No -Wound/Ulcer Outcome Healed- Not Healed Surgical Closure -Ulcer Cleansing Rinsed/ Irrigated with Saline -Foul Odor after Cleansing No No -Bioengineered Tissue No No -Bleeding Controlled with Pressure Pressure -Offloading Yes No -Type of Offloading Surgical Shoe -Treatment Response Procedure Procedure Tolerated Well Tolerated Well -Debridement - Subq, 1st 20sq cm No No Pain Scale: 0-10 Numeric Is Patient Pain Free? Yes Yes WC - Nurse 3 - General Ulcer D/C NN Start: 09/08/20 10:23 Freq: Status: Active Protocol: Activity Type Activity Date Activity User E-Sign Co-Sign Detail Recorded Client Recorded Date Recorded By Document 09/08/20 11:27 MW [id number] 09/08/20 11:28 MW 09/08/20 11:27 Wound Care Nurse 3 5-right 1st metatarsal -Ulcer Cleansing Rinsed/ Irrigated with Saline -Foul Odor after Cleansing No -Negative Pressure Wound Therapy N/A -Primary Dressing Applied C Hydrogel ($) -Primary Dressing Covered/Secured with Dry Gauze & Roll Gauze, Secured with Tape #4 left medial hallux -Ulcer Cleansing Rinsed/ Irrigated with Saline -Foul Odor after Cleansing No -Negative Pressure Wound Therapy N/A -Other Dressing c.hydrogel -Primary Dressing Covered/Secured with Dry Gauze & Roll Gauze, Secured with Tape Treatment Response Procedure Tolerated Well Pain Scale: 0-10 Numeric Is Patient Pain Free? Yes Teaching: Wound Center *Hyperbaric Medicine (HBO) -Person Taught Patient,Family -Teaching Method Discussion -Response to teaching Verbalize understanding WC - Visit Discharge Discharge Condition Stable Ambulatory Status Ambulatory Transportation Private Auto Accompanied by Medication Reconcilliation completed & No provided to patient/care provider Clinical Summary of Care Provided Yes Wound debrided: Subfirst metatarsal head Laterality: Right Type of Debridement: Excisional debridement Anesthesia Used: 4% Lidocaine Solution Depth: to bone Percentage of wound debrided: 100 Instrument Used: 3mm curette Tissue Removed: includes fibrous, devitalized, biofilm, callus and slough tissue Severity: Necrosis of Bone (Debrided to the level of subcu) Amount of bleeding with debridement: Mild Bleeding Controlled with: Pressure Patient tolerated procedure: Patient tolerated procedure well Additional Wound Wound debrided: Subfirst metatarsal head Laterality: Left Type of Debridement: Excisional debridement Anesthesia Used: 4% Lidocaine Solution Depth: to bone (Debrided to subcu) Percentage of wound debrided: 100 Instrument Used: 3mm curette Tissue Removed: Includes fibrous, devitalized, biofilm, callus and slough tissue Severity: Necrosis of Bone Amount of bleeding with debridement: Mild Bleeding Controlled with: Pressure Patient tolerated procedure: Patient tolerated procedure well
--- NOTE | 2020-09-15 12:15 | RAD_ITS ---
STUDY: X-RAY CHEST REASON FOR EXAM: Female, 75 years old. Hyperbaric Oxygen THERAPY TECHNIQUE: PA and lateral views of the chest. COMPARISON: None. FINDINGS: Surgical clips are seen in the lower right cervical region most likely secondary to prior thyroid surgery. There is hyperinflation of the lungs consistent with chronic obstructive lung disease (COPD). Mild increased markings at the right lung apex most likely representing scarring. Scattered calcified granulomas. There is no demonstrated pleural abnormality. Normal size heart. Normal mediastinum and eddie. Normal visualized pulmonary arteries. There is atherosclerotic calcification of the aortic arch with tortuosity. Normal visualized thoracic spine. There is degenerative osteoarthritis of the bilateral shoulders. There is no demonstrated abnormality of the visualized soft tissue structures of the upper abdomen. RAD/Chest PA and Lateral IMPRESSION: Hyperinflation. Scattered calcified granulomas. Findings suggestive of scarring at the right lung apex. Electronically Signed: Pawan Lares MD at 12:24 EDT , Service support ,
[2020-09-22 10:12] VITALS: BP 172/71; PULSE 96; RESP 16; TEMP 36.8; BMI 18.6
--- NOTE | 2020-09-22 12:51 | PCM.WC.PN ---
History of Present Illness Date of Service: 09/22/20 Chief Complaint: Pressure ulcer plantar bilateral 1st metatarsal History of Wound: Kylah is a 75-year-old female who was referred here for treatment of an ulcer at the base of her great toe at her metatarsal head from Dr. Poe, her community mental health social worker. She has been receiving treatment to this area for the last [address] Poe has attempted to debride and close it surgically with sutures but it reopened and it hasn't healed. She has a history of ulcerations underneath her big toe on both feet. 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 Patient has had a recent culture on 05/11/20, positive for Staphylococcus lugendenosis. Another culture was taken which demonstrated staph epididymis. With most recent culture taken 07/01/2020 with no growth seen. She has previously demonstrated an apparent allergy to collagen hydrogel. The patient has had vascular studies, without evidence of significant superficial vein incompetence in the left lower extremity in 2017. Her noninvasive lower extremity arterial study reveals normal ankle?brachial indices bilaterally in 2017. New studies on 06/30/20 showed moderate distal small vessel disease bilaterally at the digits with some non compressible vessels. Patient saw her vascular surgeon, Dr Oseguera, who did intervention on the patient on 07/21/20. Dr. Oseguera has no further interventions planned at this time. She had MRI on 06/25/20 which showed osteomyelitis to left 1st metatarsal. Patient saw Dr Clements who started her on cephalexin and doxycycline to treat her osteomyelitis. The patient is noted to be on prednisone and methotrexate for her rheumatoid arthritis. These are acknowledged to be possible inhibitors to wound healing. Patient noted to have painful feet due to her rheumatoid arthritis. Patient had callus to right plantar first MPJ with noted underlying ulceration noted. Patient has had wound here in the past. Patient relates that she goes to special shoe store to get offloading insert added to her shoes to help prevent callus buildup. Patient relates addition of pads to her slippers of also been helpful. Progress of Wound: Stable, callus cap noted over wounds again on right but not left Subjective Subjective Patient seen and examined resting comfortably. Patient denies any new pedal complaints. Patient denies any nausea, fever, chills, chest pain, shortness of breath, cough, streaking, purulence, vomiting. Patient reports no drainage noted. She has has no pain to the left fifth digit area. Objective Data Objective Data Vital Signs: Vital Signs Temp Pulse Resp BP 98.3 F 96 16 172/71 H 09/22/20 10:12 09/22/20 10:12 09/22/20 10:12 09/22/20 10:12 Oxygen Delivery Method Room Air Weight: 46.266 kg Body Mass Index (BMI) 18.6 Lab / Micro Data Micro: Microbiology 09/15/20 Unknown Wound Abcess - Right Foot Gram Stain - Final 09/15/20 Unknown Wound Abcess - Right Foot Wound Culture - Final Staphylococcus lugdunensis Corynebacterium species 09/15/20 Unknown Wound Abcess - Right Foot Anaerobic Culture - Final No anaerobic bacteria isolated. Assessment & Plan Assessment/Plan (1) Pressure ulcer of right foot, stage 4: (2) Pressure ulcer of toe of left foot, stage 4: (3) Fat pad atrophy of foot: (4) Osteomyelitis: QUALIFIERS: Osteomyelitis type: other acute Osteomyelitis location: foot Laterality: left Qualified Code(s): M86.172 - Other acute osteomyelitis, left ankle and foot (5) Delayed wound healing: (6) Steroid long-term use: (7) PAD (peripheral artery disease): (8) Corns and callosities: (9) Rheumatoid arthritis: QUALIFIERS: Rheumatoid arthritis location: foot Rheumatoid factor presence: unspecified presence Laterality: bilateral Qualified Code(s): M06.9 - Rheumatoid arthritis, unspecified (10) Osteomyelitis, chronic, ankle or foot: (11) Cellulitis of foot, left: (12) Cellulitis of right foot: (13) Left foot pain: PLAN: Patient seen and examined. Ulcerations remain stable and clinically noninfected in appearance. Serous drainage is noted to come out of bilateral foot wound upon removal of callus. There is no clinical signs of infection even though wound probes to bone. Patient may not amount of much of a clinical response to infection given chronic steroid use for her rheumatoid arthritis. New red area noted to plantar fifth MPJ on the left side. This is concerning for future wound development. Pain to palpation. Kylah's ulcers were evaluated and debrided today at the wound center after verbal consent obtained. Plantar first metatarsal wounds bilaterally has easily bone exposed. Left foot xray 05/29/2020 did not show osteomyelitis. Given clinical appearance MRI was ordered. MRI 06/25/20 showed evidence of osteomyelitis to left diaphysis of 1st metatarsal. Cultures obtained 06/30/2020 did not show any growth. Possible previous antibiotics patient was on have cleared up skin infection but bone infection may remain. Dr Davis in Infectious disease saw patient and prescribed cephalexin and doxycycline for treatment. Patient has since finished these. Culture obtained 09/15/2020 demonstrated Staphylococcus Lugdenensis and Corynebacterium species. Patient was started on doxycycline. Patient relates she only has a couple days left of the antibiotic. Patient was given a refill for doxycycline sent to her pharmacy. Discussed with patient to follow-up with Dr. Pantoja for possible need for another long-term course of IV antibiotics or oral antibiotics for this recurrent osteomyelitis. Patient will contact for further work-up. LEAS 06/30/20 showed moderate distal small vessel disease bilaterally at the digits. The left foot was noted to have biphasic pulses with CRUZ of 1.27 and TBI of 0.37. The left PT was noncompressible. The right foot PT and DP were noncompressible and TBI of 0.4 with triphasic and biphasic pulses. Patient had procedure with Dr Oseguera 07/21/20. Patient reports that the procedure went well. Dr. Oseguera has no further interventions planned at this time. The etiology of her ulcers appears to be from pressure at sites of metatarsal heads as there is significant fat pad atrophy. Discussed with the patient the importance of proper shoe gear with good padding to supplement lost fat pad. This is most likely due to her rheumatoid arthritis, chronic prednisone treatment may also have a role in the nonhealing of the ulcers. Discussed with the patient possibility of ordering custom inserts self-pay. Patient will consider. Offloading was discussed, patient relates that she has a surgical shoe with forefoot offloaded. Patient presents today and tennis shoes with offloading inserts noted to bilateral shoes. Recommend patient wear surgical shoe at this time. She was advised to try to avoid standing and being on her feet for long periods and to elevate her feet as much as possible. Patient slippers which she wears well indoors have also been adjusted with an offloading insert bilaterally. Patient relates that these been working well for her. Discussed importance of smoking cessation, blood sugar control, weight management, offloading, proper nutrition, and hygiene to optimize healing potential. Discussed that her chronic steroid use for her RA can impact wound healing as well as impact her body's ability to mount an immune response. Also her vascular disease may also be playing into her poor ability to heal. There is suspicion that osteomyelitis infection may still remain given factors that may be impeding wound healing as well as chronic bone exposure to bilateral 1st metatarsals now through the wounds. Upon previous discussion it was noted that the patient did not wish to undergo bone debridement given the extent of osteomyelitis per MRI as well as her already established history of poor wound healing. It was decided that it was not worth the risk of potentially creating a larger wound that potentially more bacteria could then use to infect the wound. The remaining bone exposure puts patient at clinical osteomyelitis since I began seeing patient. There is no definitive need to repeat imaging at the end of antibiotic therapy per ID with Dr Clements. Patient completed 6 week course of cephalexin and doxycycline. Given new monitor drainage to wound will consider follow-up with Dr. Clements. Patient wounds are too small for skin substitute applications. Patient also noted to not to be diabetic but does have history of osteomyelitis so may potentially be a candidate for hyperbaric oxygen therapy. She has since finished her course of antibiotics per infectious disease to treat the osteomyelitis. We will discuss to see if patient might be a potential candidate under nondiabetic guidelines. This would include further work up with labs, imaging, and clearance consultation. If patient is approved for hyperbaric oxygen therapy our goals would be to heal her wounds to bilateral feet while continuing regular debridements, monitoring, offloading, and medical optimizing and monitoring. Patient to see Dr. Steinberg for HBO evaluation later today. Encouraged protein rich diet and protein supplements. Advised to call with questions or concerns. All questions answered. Continue wound care to foot ulcerations daily. Follow-up in 1 week. This note was generated with [employer] dictation software. It may contain incorrect words, spelling, and punctuation that were not noted in checking the note before signing. The problems addressed require a low medical decision making level which includes two or more minor problems, a stable chronic illness, or an acute uncomplicated illness or injury. Physical Exam Const alert and no apparent distress General Appearance: cooperative and comfortable Lymph Lymphatic: no lymphedema noted Resp normal respiratory effort Effort and Inspection: able to speak in complete sentences Extremity normal capillary refill, no calf tenderness and no pedal edema General Extremity: Negative for clubbing or cyanosis Peripheral Pulses: Yes posterior tibial pulses present bilateral diminished and dorsalis pedis pulses present bilateral diminished Skin General Skin Exam: Negative for ecchymosis, erythema, eschar, pallor or dermatitis Rashes: no rashes Wounds: wounds noted Wound Narrative: ulcers noted to plantar first metatarsal head bilaterally No malodor, erythema, purulence, streaking, fluctuation, crepitus. Skin is atrophic and hairless. Granular base. Wounds probe to bone bilaterally. Some serous drainage noted to bilateral wounds. There is significant amount of fat pad atrophy noted to bilateral feet secondary to patient's rheumatoid arthritis. There is noted callus buildup within the ulceration site with and overlying the wounds. Red irritated area noted to plantar lateral fifth metatarsal head on the left-hand side. This area is concerning for ulcer development. There is no fat pad noted again at this area. There is no callus buildup. The erythema is focal without any open wounds. This is likely due to irritation and rubbing more so than any infection at this area. Patient also relates a lot of pain to palpation of this spot Neuro Gait (Neuro): normal gait Sensory Exam: extremities light-touch: decreased Motor Exam: strength 5/5 throughout Psych Appearance: appropriate Attitude: calm Debridement Note Debridement Note Post-Debridement Measurements and Additional Note: Post-Debridement Measurements/Treatment - Nurse 1 - General Ulcer Assessment Start: 09/08/20 10:23 Freq: Status: Active Protocol: GEORGE Activity Type Activity Date Activity User E-Sign Co-Sign Detail Recorded Client Recorded Date Recorded By Document 09/08/20 10:23 DL [id number] 09/08/20 10:32 DL Document 09/15/20 10:49 DL [id number] 09/15/20 10:58 DL Document 09/22/20 10:12 [facility] [id number] 09/22/20 10:20 BMF 09/08/20 09/15/20 09/22/20 10:23 10:49 10:12 - Today's Visit Information Type of service Follow-up Visit Follow-up Visit Follow-up Visit (Physician/COMMUNITY MENTAL HEALTH SOCIAL WORKER (Physician/COMMUNITY MENTAL HEALTH SOCIAL WORKER (Physician/COMMUNITY MENTAL HEALTH SOCIAL WORKER ) ) ) Arrival Mode Ambulatory Ambulatory Ambulatory Transfer Assistance None None None Patient Identification Verified (Name & Yes Yes Yes ) Patient Requires Transmission-Based No No Precautions Height and Weight Body Mass Index (BMI) 18.6 18.6 18.6 BMI Classification Normal Normal Normal Vital Signs Temperature (97.8 F-99.1 F) 97.5 F L 97.4 F L 98.3 F Temperature Source Temporal Temporal Temporal Pulse Rate (60-100) 80 90 96 Pulse Location Monitor Monitor Monitor Respiratory Rate (12-18) 18 18 16 Respiratory rate source Observation Observation Observation Oxygen Delivery Method Room Air Blood Pressure (90/60-120/80) 175/68 H 160/97 H 172/71 H Blood Pressure Mean (mm Hg) 103 118 104 Source Monitor Monitor Monitor Position Sitting Blood Pressure Location Left Arm History Since Last Visit- (Skip if this is Patient's initial visit) Have you changed medications since your No No No last visit? Any new allergies or adverse reactions No No No Had a fall/change in ADL's that may No No No increase risk of falls Signs or symptoms of abuse and/or No No No neglect since last visit Have you been in the hospital since your No No No last visit? Has dressing in place as prescribed Yes Yes Yes Has compression in place as prescribed N/A N/A N/A Has offloadiing in place as prescribed Yes Yes N/A Experienced any changes in pain level or No No No management Left Footwear Regular Shoe Right Footwear Regular Shoe Pain Scale: 0-10 Numeric Is Patient Pain Free? Yes Yes Yes WC - Nurse 1 - General Ulcer Measurement Start: 09/08/20 10:23 Freq: Status: Active Protocol: Activity Type Activity Date Activity User E-Sign Co-Sign Detail Recorded Client Recorded Date Recorded By Document 09/08/20 10:23 DL [id number] 09/08/20 10:32 DL Document 09/15/20 10:49 DL [id number] 09/15/20 10:58 DL Edit Result 09/15/20 10:49 DL (1) [id number] 09/15/20 11:01 DL Document 09/22/20 10:12 BMF [id number] 09/22/20 10:20 BMF (1) #4 left medial hallux - Current Size (cm) - Width 2 => 0.2 - Total Square Cm 0.4 => 0.04 - Maximum Distance #2 (cm) => 0.3 - Circular Undermining => Yes 09/08/20 09/15/20 09/22/20 10:23 10:49 10:12 Wound Center Nurse 1 5-right 1st metatarsal -Combined with other wound No -Current Size (cm) - Length 0.1 0.1 0.2 -Current Size (cm) - Width 0.1 0.1 0.2 -Current Size (cm) - Depth 0.1 0.1 0.2 -Total Square Cm 0.01 0.01 0.04 -Photo Taken No No No -Epithelialization None Present -Tunneling No -Undermining/Tunneling No -Circular Undermining No -Exudate Amt None Present None Present None Present -Wound Margin Thickened Well Defined, Distinct, Not Attached Outline Attached -Granulation Amt Large (67-100%) Small (1-33%) None Present (0 %) -Granulation Quality Pale Pale -Slough/Fibrin Yes -Necrosis Amt None Present (0 None Present (0 Large (67-100%) %) %) -Necrotic Tissue Type Adherent Slough -Structure Exposed N/A N/A -Texture (Анна-wound Skin Appearance) Callus,Scarring Callus Assessed,Callus ,Scarring -Moisture (Анна-wound Skin Appearance) Dry/Scaly Dry/Scaly Assessed -Color (Анна-wound Skin Appearance) Hemosiderin No Abnormality Assessed Staining -Temperature (Анна-wound Skin No Abnormality No Abnormality No Abnormality Appearance) (Pt Warm) (Pt Warm) (Pt Warm) -Tenderness on Palpation (Анна-wound No No No Skin Appearance) -Ulcer Cleansing Rinsed/ Rinsed/ Rinsed/ Irrigated with Irrigated with Irrigated with Saline Saline Saline -Foul Odor after Cleansing No No No -Anesthetic Used 5% Lidocaine 5% Lidocaine 5% Lidocaine Gel Gel Gel #4 left medial hallux -Combined with other wound No -Current Size (cm) - Length 0.3 0.2 0.2 -Current Size (cm) - Width 0.3 0.2 0.3 -Current Size (cm) - Depth 0.3 0.4 0.4 -Total Square Cm 0.09 0.04 0.06 -Photo Taken No No No -Epithelialization None Present -Tunneling No -Undermining/Tunneling No -Maximum Distance #2 (cm) 0.2 0.3 -Circular Undermining Yes Yes No -Exudate Amt None Present Small Medium -Exudate Type Serosanguineous Purulent -Wound Margin Thickened Thickened Distinct, Outline Attached -Granulation Amt Large (67-100%) Small (1-33%) None Present (0 %) -Granulation Quality Pale Pale -Slough/Fibrin Yes -Necrosis Amt Small (1-33%) Small (1-33%) Large (67-100%) -Necrotic Tissue Type Adherent Slough Adherent Slough Adherent Slough -Structure Exposed N/A N/A -Texture (Анна-wound Skin Appearance) Callus,Scarring Callus Assessed,Callus ,Scarring -Moisture (Анна-wound Skin Appearance) Dry/Scaly Dry/Scaly Assessed,Dry/ Scaly -Color (Анна-wound Skin Appearance) Hemosiderin Assessed Assessed Staining -Temperature (Анна-wound Skin No Abnormality No Abnormality No Abnormality Appearance) (Pt Warm) (Pt Warm) (Pt Warm) -Tenderness on Palpation (Анна-wound No Yes No Skin Appearance) -Ulcer Cleansing Rinsed/ Rinsed/ Rinsed/ Irrigated with Irrigated with Irrigated with Saline Saline Saline -Foul Odor after Cleansing No No No -Anesthetic Used 5% Lidocaine 4% Lidocaine 5% Lidocaine Gel Solution Gel WC - Nurse 2 - General Ulcer CM Notes Start: 09/08/20 10:23 Freq: Status: Active Protocol: Activity Type Activity Date Activity User E-Sign Co-Sign Detail Recorded Client Recorded Date Recorded By Document 09/08/20 10:45 [id number] 09/08/20 10:55 Document 09/15/20 11:21 [id number] 09/15/20 11:30 Document 09/22/20 11:08 [id number] 09/22/20 11:13 09/08/20 09/15/20 09/22/20 10:45 11:21 11:08 Wound Center Nurse 2 5-right 1st metatarsal -Time 10:52 11:22 11:09 -Correct Patient Yes Yes Yes -Correct Side, Site, Position Yes Yes Yes -Correct Procedure Yes Yes Yes -Procedure Performed Yes Yes Yes -Type of Procedure Debridement Debridement Debridement -Clinical Debridement Subcutaneous Subcutaneous Subcutaneous -Tissue Removed Subcutaneous Subcutaneous Subcutaneous -Post Debridement (cm) - Length 0.3 0.2 0.3 -Post Debridement (cm) - Width 0.2 0.2 0.3 -Post Debridement (cm) - Depth 0.4 0.6 0.5 -Total Square (Post) (cm) 0.06 0.04 0.09 -Area of Debridement (cm) - Length 0.3 0.2 0.3 -Area of Debridement (cm) - Width 0.2 0.2 0.3 -Total Square (Area) (cm) 0.06 0.04 0.09 -Tunneling No No No -Undermining/Tunneling No No No -Circular Undermining No No No -Wound/Ulcer Outcome Not Healed Not Healed Not Healed -Ulcer Cleansing Rinsed/ Rinsed/ Irrigated with Irrigated with Saline Saline -Foul Odor after Cleansing No No No -Bioengineered Tissue No No No -Bleeding Controlled with Pressure Pressure Pressure -Offloading Yes No -Type of Offloading Surgical Shoe -Treatment Response Procedure Procedure Procedure Tolerated Well Tolerated Well Tolerated Well -Debridement - Subq, 1st 20sq cm Yes Yes No #4 left medial hallux -Time 10:54 11:22 11:10 -Correct Patient Yes Yes Yes -Correct Side, Site, Position Yes Yes Yes -Correct Procedure Yes Yes Yes -Procedure Performed Yes Yes Yes -Type of Procedure Debridement Debridement Debridement -Clinical Debridement Subcutaneous Subcutaneous Subcutaneous -Tissue Removed Subcutaneous Subcutaneous Subcutaneous -Post Debridement (cm) - Length 0.4 0.3 0.5 -Post Debridement (cm) - Width 0.3 0.4 0.5 -Post Debridement (cm) - Depth 0.3 0.4 0.4 -Total Square (Post) (cm) 0.12 0.12 0.25 -Area of Debridement (cm) - Length 0.4 0.3 0.5 -Area of Debridement (cm) - Width 0.3 0.4 0.5 -Total Square (Area) (cm) 0.12 0.12 0.25 -Tunneling No No No -Undermining/Tunneling No No No -Circular Undermining No No No -Wound/Ulcer Outcome Healed- Not Healed Not Healed Surgical Closure -Ulcer Cleansing Rinsed/ Rinsed/ Irrigated with Irrigated with Saline Saline -Foul Odor after Cleansing No No No -Bioengineered Tissue No No No -Bleeding Controlled with Pressure Pressure Pressure -Offloading Yes No No -Type of Offloading Surgical Shoe -Treatment Response Procedure Procedure Procedure Tolerated Well Tolerated Well Tolerated Well -Debridement - Subq, 1st 20sq cm No No Yes Pain Scale: 0-10 Numeric Is Patient Pain Free? Yes Yes Yes WC - Nurse 3 - General Ulcer D/C NN Start: 09/08/20 10:23 Freq: Status: Active Protocol: Activity Type Activity Date Activity User E-Sign Co-Sign Detail Recorded Client Recorded Date Recorded By Document 09/08/20 11:27 MW [id number] 09/08/20 11:28 MW Document 09/15/20 12:03 DL [id number] 09/15/20 12:04 DL Document 09/22/20 12:09 BMF [id number] 09/22/20 12:10 BMF 09/08/20 09/15/20 09/22/20 11:27 12:03 12:09 Wound Care Nurse 3 5-right 1st metatarsal -Ulcer Cleansing Rinsed/ Rinsed/ Rinsed/ Irrigated with Irrigated with Irrigated with Saline Saline Saline -Foul Odor after Cleansing No No No -Negative Pressure Wound Therapy N/A -Primary Dressing Applied C Hydrogel ($) Other -Other Dressing hydrogel [id number] -Primary Dressing Covered/Secured with Dry Gauze & Dry Gauze & Dry Gauze & Roll Gauze, Roll Gauze, Roll Gauze, Secured with Secured with Secured with Tape Tape Tape #4 left medial hallux -Ulcer Cleansing Rinsed/ Wound Cleanser Irrigated with Saline -Foul Odor after Cleansing No No -Negative Pressure Wound Therapy N/A -Primary Dressing Applied Other -Other Dressing c.hydrogel hydrogel HYDROGEL -Primary Dressing Covered/Secured with Dry Gauze & Dry Gauze & Dry Gauze & Roll Gauze, Roll Gauze, Roll Gauze, Secured with Secured with Secured with Tape Tape Tape Treatment Response Procedure Procedure Procedure Tolerated Well Tolerated Well Tolerated Well Pain Scale: 0-10 Numeric Is Patient Pain Free? Yes Yes Teaching: Wound Center *Hyperbaric Medicine (HBO) -Person Taught Patient,Family -Teaching Method Discussion -Response to teaching Verbalize understanding WC - Visit Discharge Discharge Condition Stable Stable Ambulatory Status Ambulatory Ambulatory Transportation Private Auto Private Auto Accompanied by Medication Reconcilliation completed & No provided to patient/care provider Clinical Summary of Care Provided Yes Wound debrided: Plantar first metatarsal head Laterality: Right Wound Grade/Stage: Pressure 4 Type of Debridement: Excisional debridement Anesthesia Used: 4% Lidocaine Solution Depth: in the subcutaneous layer (Debrided to subcu wound probes to bone) and to bone Percentage of wound debrided: 100 Instrument Used: 3mm curette Tissue Removed: includes fibrous, devitalized, biofilm, callus and slough tissue Severity: Necrosis of Bone Amount of bleeding with debridement: Mild Bleeding Controlled with: Pressure Patient tolerated procedure: Patient tolerated procedure well Additional Wound Wound debrided: Subfirst metatarsal head Laterality: Left Wound Grade/Stage: Pressure grade 4 Type of Debridement: Excisional debridement Anesthesia Used: 4% Lidocaine Solution Depth: in the subcutaneous layer (Debrided to subcutaneous level wound probes to bone) and to bone Percentage of wound debrided: 100 Instrument Used: 3mm curette Tissue Removed: Includes fibrous, devitalized, biofilm, callus and slough tissue Severity: Necrosis of Bone Amount of bleeding with debridement: Mild Bleeding Controlled with: Pressure Patient tolerated procedure: Patient tolerated procedure well
--- NOTE | 2020-09-22 13:25 | HBO.CON.PC_ITS ---
Assessment & Plan Assessment/Plan (1) Osteomyelitis, chronic, ankle or foot: (2) Pressure ulcer of left foot, stage 4: (3) PAD (peripheral artery disease): (4) Osteomyelitis: QUALIFIERS: Osteomyelitis type: other acute Osteomyelitis location: foot Laterality: left Qualified Code(s): M86.172 - Other acute osteomyelitis, left ankle and foot (5) Rheumatoid arthritis: QUALIFIERS: Rheumatoid arthritis location: foot Rheumatoid factor presence: unspecified presence Laterality: bilateral Qualified Code(s): M06.9 - Rheumatoid arthritis, unspecified (6) Osteoarthritis: QUALIFIERS: Osteoarthritis location: multiple joints Osteoarthritis type: unspecified Qualified Code(s): M15.9 - Polyosteoarthritis, unspecified (7) Osteoporosis: QUALIFIERS: Osteoporosis type: unspecified Presence of current pathological fracture: without current pathological fracture Qualified Code(s): M81.0 - Age-related osteoporosis without current pathological fracture (8) Hypertension: QUALIFIERS: Hypertension type: essential hypertension Qualified Code(s): I10 - Essential (primary) hypertension (9) Delayed wound healing: (10) Steroid long-term use: PLAN: This is a 75-year-old female with osteomyelitis of the left first metatarsal, as documented by recent MRI scan. She has undergone arteriography of the left lower extremity recently, with efforts at revascularization which were unsuccessful. She has been under the care of an Infectious Disease specialist, and has undergone treatment by several courses of oral antibiotics. It is felt that the patient will benefit from hyperbaric oxygen therapy, as an adjunct to treatment of the patient's documented chronic refractory osteomyelitis of the left first metatarsal. Patient will likely benefit from hyperbaric oxygen therapy at 2 lucio for 90 minutes, for a total of 40 treatments initially. Depending on her response to HBO therapy, an additional course may be considered. The patient is to remain under the care of Dr. Cavanaugh and Dr. Clements, the patient's current team of medical providers, who are providing a multidisciplinary approach to management. There appeared to be no contraindications to hyperbaric oxygen therapy. If and when insurance preauthorization has been granted, the patient will undergo hyperbaric oxygen therapy as thoroughly explained to the patient. The indications and risks have been discussed with the patient in detail the patient's questions have been answered. Risks such as barotrauma to the ears and lungs, as well as multiple other possible risks, have been discussed patient detail. The nature of hyperbaric oxygen therapy has been thoroughly presented to the patient. The patient has indicated her desire to proceed. Total time: 70 minutes. History of Present Illness Date of Service: 09/22/20 Chief Complaint: Bilateral 1st metatarsal ulceration with chronic refractory osteomyelitis of the left first metatarsal. Progress of Wound: This is a 75-year-old female who has been referred by her material checker, Dr. Poe. She had been treated for 11 months, and surgical closure have been attempted, with a failure to heal. She has a history of ulcerations on the plantar aspect of the first metatarsal bilaterally. It is felt that the patient's rheumatoid arthritis has been a significant contributing cause. Cultures performed in May 2020 were positive for Staphylococcus lugendenosis. A subsequent culture was positive for staph epidermidis. A noninvasive lower extremity arterial study on June 30, 2020, revealed evidence of arterial calcification at ankle level on the right. Arterial flow appeared to be relatively normal at ankle level bilaterally, with evidence of moderate, distal, small?vessel arterial occlusive disease at digital level bilaterally. The patient subsequently underwent arteriography by a Vascular Surgeon, Dr. Bruno Oseguera, on July 21, 2020, at which time it was found that the anterior tibial artery, peroneal artery, and posterior tibial arteries were patent to the distal left calf. Imaging was was performed at the ankle, and the anterior tibial artery was patent and the dorsalis pedis felt through the arch. The peroneal artery was small distally with collateral flow towards the posterior tibial artery. The posterior tibial artery was found to be patent all the way to the level of the ankle with a small area of very calcified occlusive disease. Attempts to traverse the area of occlusion were unsuccessful. Recent treatment measures have included offload measures, antibiotics, nutritional supplementation, and local wound care measures. An MRI scan on June 25, 2020, revealed osteomyelitis of the left first metatarsal. Patient was treated with cephalexin and doxycycline, and subsequently another course of doxycycline. The diagnosis of osteomyelitis has suggested a role for hyperbaric oxygen therapy, for which the patient is now referred for evaluation. [facility] Medical History (Updated 09/22/20 @ 14:[address] Jesus Manuel Steinberg MD) History of arteriography Home Medications Benazepril Hcl [Lotensin] 20 mg PO DAILY 12/21/16 [History Last Taken 07/21/20] conjugated estrogens [Premarin] 1 dose VAGINAL DAILY 12/21/16 [History Last Taken Unknown] cyclosporine [Restasis] 2 drp OP DAILY 12/21/16 [History Last Taken Unknown] denosumab [Prolia] 60 mg SQ QMONTH 12/21/16 [History Last Taken Unknown] folic acid 1 mg PO DAILY@0800 12/21/16 [History Last Taken 07/21/20] hydroxychloroquine 200 mg PO DAILYCM 12/21/16 [History Last Taken 07/21/20] methotrexate sodium (PF) 25 mg IJ QWEEK 12/21/16 [History Last Taken Unknown] prednisone 12 mg PO DAILY 12/21/16 [History Last Taken 07/21/20] tramadol 50 mg PO Q4H PRN PRN 12/21/16 [History Last Taken Unknown] levothyroxine 75 mcg PO DAILY 06/29/17 [History Last Taken 07/21/20] doxycycline monohydrate 100 mg PO BID #20 cap 06/16/20 [Rx Last Taken Unknown] clopidogrel 75 mg PO DAILY 07/28/20 [History Last Taken Unknown] doxycycline monohydrate 100 mg PO BID #14 tab 09/19/20 [Rx Last Taken Unknown] doxycycline monohydrate 100 mg PO BID #20 tab 09/22/20 [Rx Last Taken Unknown] Allergy/AdvReac Type Severity Reaction Status Date / Time No Known Allergies Allergy Verified 05/29/20 10:46 Family History (Updated 09/22/20 @ 13:[address] Jesus Manuel Steinberg MD) Other Scleroderma Valvular heart disease Surgical History (Updated 09/22/20 @ 13:[address] Jesus Manuel Steinberg MD) History of thyroidectomy Hx of parathyroidectomy Social History (Updated 09/22/20 @ 13:[address] Jesus Manuel Steinberg MD) household members: spouse number of children: 2 current gender identity: female Smoking Status: Never smoker alcohol intake: never substance use type: does not use ROS ROS Narrative The patient has been question thoroughly about her past medical history. She relates no problems with her ears. She has no history of otic barotrauma. 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 She has no significant cardiopulmonary history. She has no history of hemoptysis, chronic cough, emphysema, or asthma. She denies a history of pneumothorax. There are no specific gastrointestinal or digestive problems in the patient's past. There are no hematological abnormalities. Patient has a history of hyperparathyroidism, for which she underwent thyroidectomy and partial parathyroidectomy in the past. Patient has no history of diabetes mellitus or hypoglycemia. She denies claustrophobia. She denies a significant history of genitourinary problems, though has had kidney stones in the past. She has no neurological pathology, or history of psychological abnormalities. She denies any history of claustrophobia. The patient has a history of hypertension and rheumatoid arthritis. Rheumatoid arthritis is rather severe in nature. She also has a history of peripheral arterial occlusive disease, with recent evaluation and intervention by Dr. Oseguera, Vascular Surgeon. Physical Exam Physical Exam Const alert, oriented x3, no apparent distress and well nourished General Appearance: cooperative and well developed HEENT normocephalic HEENT Narrative: Significant collection of wax is noted in the patient's left ear. However, the tympanic membrane is visible by otoscopic examination, and appears to be normal. The right tympanic membrane is obstructed by the presence of earwax. Head and Scalp: atraumatic Eyes PERRL and EOMs intact bilaterally Neck supple, no JVD and no carotid bruits General: trachea midline Lymph Lymphatic: no lymphedema noted Resp normal respiratory effort, no retractions, no use of accessory muscles and clear to auscultation bilaterally Effort and Inspection: able to speak in complete sentences Cardio regular rate, regular rhythm, S1 normal heart sound, S2 normal heart sound and no murmurs GI non-tender and non-distended Extremity no clubbing, cyanosis or edema and no calf tenderness Extremity Narrative: Hyperpigmentation is noted to involve all extremities, both upper and lower. In addition, severe digital deformities are noted of the fingers and toes, secondary to the patient's rheumatoid arthritis. Small wounds are noted on the plantar aspect of both feet, involving the first metatarsals. Skin Skin Narrative: Hyperpigmentation is noted of the skin in both the upper and lower extremities. Neuro CN's II-XII intact bilaterally Speech: speech normal Psych mental status grossly normal and affect normal Nursing Assessment and Debridement Post-Debridement Measurements and Additional Note: Post-Debridement Measurements/Treatment WC - Nurse 1 - General Ulcer Assessment Start: 09/08/20 10:23 Freq: Status: Active Protocol: .AROLDO Activity Type Activity Date Activity User E-Sign Co-Sign Detail Recorded Client Recorded Date Recorded By Document 09/22/20 10:12 [facility] [id number] 09/22/20 10:20 [facility] 09/22/20 10:12 - Today's Visit Information Type of service Follow-up Visit (Physician/[facility] [employer] ) Arrival Mode Ambulatory Transfer Assistance None Patient Identification Verified (Name & Yes ) Patient Requires Transmission-Based No Precautions Height and Weight Body Mass Index (BMI) 18.6 BMI Classification Normal Vital Signs Temperature (97.8 F-99.1 F) 98.3 F Temperature Source Temporal Pulse Rate (60-100 beats/min) 96 Pulse Location Monitor Respiratory Rate (12-18 breaths/min) 16 Respiratory rate source Observation Oxygen Delivery Method Room Air Blood Pressure (90/60-120/80 mm Hg) 172/71 H Blood Pressure Mean (mm Hg) 104 Source Monitor Position Sitting Blood Pressure Location Left Arm History Since Last Visit- (Skip if this is Patient's initial visit) Have you changed medications since your No last visit? Any new allergies or adverse reactions No Had a fall/change in ADL's that may No increase risk of falls Signs or symptoms of abuse and/or No neglect since last visit Have you been in the hospital since your No last visit? Has dressing in place as prescribed Yes Has compression in place as prescribed N/A Has offloadiing in place as prescribed N/A Experienced any changes in pain level or No management Left Footwear Regular Shoe Right Footwear Regular Shoe Pain Scale: 0-10 Numeric Is Patient Pain Free? Yes - Nurse 1 - General Ulcer Measurement Start: 09/08/20 10:23 Freq: Status: Active Protocol: Activity Type Activity Date Activity User E-Sign Co-Sign Detail Recorded Client Recorded Date Recorded By Document 09/22/20 10:12 [facility] [id number] 09/22/20 10:20 [facility] 09/22/20 10:12 Wound Center Nurse 1 5-right 1st metatarsal -Combined with other wound No -Current Size (cm) - Length 0.2 -Current Size (cm) - Width 0.2 -Current Size (cm) - Depth 0.2 -Total Square Cm 0.04 -Photo Taken No -Epithelialization None Present -Tunneling No -Undermining/Tunneling No -Circular Undermining No -Exudate Amt None Present -Wound Margin Distinct, Outline Attached -Granulation Amt None Present (0 %) -Slough/Fibrin Yes -Necrosis Amt Large (67-100%) -Necrotic Tissue Type Adherent Slough -Texture (Анна-wound Skin Appearance) Assessed,Callus ,Scarring -Moisture (Анна-wound Skin Appearance) Assessed -Color (Анна-wound Skin Appearance) Assessed -Temperature (Анна-wound Skin No Abnormality Appearance) (Pt Warm) -Tenderness on Palpation (Анна-wound No Skin Appearance) -Ulcer Cleansing Rinsed/ Irrigated with Saline -Foul Odor after Cleansing No -Anesthetic Used 5% Lidocaine Gel #4 left medial hallux -Combined with other wound No -Current Size (cm) - Length 0.2 -Current Size (cm) - Width 0.3 -Current Size (cm) - Depth 0.4 -Total Square Cm 0.06 -Photo Taken No -Epithelialization None Present -Tunneling No -Undermining/Tunneling No -Circular Undermining No -Exudate Amt Medium -Exudate Type Purulent -Wound Margin Distinct, Outline Attached -Granulation Amt None Present (0 %) -Slough/Fibrin Yes -Necrosis Amt Large (67-100%) -Necrotic Tissue Type Adherent Slough -Texture (Анна-wound Skin Appearance) Assessed,Callus ,Scarring -Moisture (Анна-wound Skin Appearance) Assessed,Dry/ Scaly -Color (Анна-wound Skin Appearance) Assessed -Temperature (Анна-wound Skin No Abnormality Appearance) (Pt Warm) -Tenderness on Palpation (Анна-wound No Skin Appearance) -Ulcer Cleansing Rinsed/ Irrigated with Saline -Foul Odor after Cleansing No -Anesthetic Used 5% Lidocaine Gel WC - Nurse 2 - General Ulcer CM Notes Start: 09/08/20 10:23 Freq: Status: Active Protocol: Activity Type Activity Date Activity User E-Sign Co-Sign Detail Recorded Client Recorded Date Recorded By Document 09/22/20 11:08 [facility] [id number] 09/22/20 11:13 [facility] 09/22/20 11:08 Wound Center Nurse 2 5-right 1st metatarsal -Time 11:09 -Correct Patient Yes -Correct Side, Site, Position Yes -Correct Procedure Yes -Procedure Performed Yes -Type of Procedure Debridement -Clinical Debridement Subcutaneous -Tissue Removed Subcutaneous -Post Debridement (cm) - Length 0.3 -Post Debridement (cm) - Width 0.3 -Post Debridement (cm) - Depth 0.5 -Total Square (Post) (cm) 0.09 -Area of Debridement (cm) - Length 0.3 -Area of Debridement (cm) - Width 0.3 -Total Square (Area) (cm) 0.09 -Tunneling No -Undermining/Tunneling No -Circular Undermining No -Wound/Ulcer Outcome Not Healed -Foul Odor after Cleansing No -Bioengineered Tissue No -Bleeding Controlled with Pressure -Treatment Response Procedure Tolerated Well -Debridement - Subq, 1st 20sq cm No #4 left medial hallux -Time 11:10 -Correct Patient Yes -Correct Side, Site, Position Yes -Correct Procedure Yes -Procedure Performed Yes -Type of Procedure Debridement -Clinical Debridement Subcutaneous -Tissue Removed Subcutaneous -Post Debridement (cm) - Length 0.5 -Post Debridement (cm) - Width 0.5 -Post Debridement (cm) - Depth 0.4 -Total Square (Post) (cm) 0.25 -Area of Debridement (cm) - Length 0.5 -Area of Debridement (cm) - Width 0.5 -Total Square (Area) (cm) 0.25 -Tunneling No -Undermining/Tunneling No -Circular Undermining No -Wound/Ulcer Outcome Not Healed -Ulcer Cleansing Rinsed/ Irrigated with Saline -Foul Odor after Cleansing No -Bioengineered Tissue No -Bleeding Controlled with Pressure -Offloading No -Treatment Response Procedure Tolerated Well -Debridement - Subq, 1st 20sq cm Yes Pain Scale: 0-10 Numeric Is Patient Pain Free? Yes WC - Nurse 3 - General Ulcer D/C NN Start: 09/08/20 10:23 Freq: Status: Active Protocol: Activity Type Activity Date Activity User E-Sign Co-Sign Detail Recorded Client Recorded Date Recorded By Document 09/22/20 12:09 [facility] [id number] 09/22/20 12:10 [facility] 09/22/20 12:09 Wound Care Nurse 3 5-right 1st metatarsal -Ulcer Cleansing Rinsed/ Irrigated with Saline -Foul Odor after Cleansing No -Primary Dressing Applied Other -Other Dressing HYDROGEL -Primary Dressing Covered/Secured with Dry Gauze & Roll Gauze, Secured with Tape #4 left medial hallux -Primary Dressing Applied Other -Other Dressing HYDROGEL -Primary Dressing Covered/Secured with Dry Gauze & Roll Gauze, Secured with Tape Treatment Response Procedure Tolerated Well
--- NOTE | 2020-09-28 13:17 | WC ---
Received a voicemail from Bala Mike, son of Kylah Mike stating that patient had a stent placed today at [facility] this morning. She will be there for several days and will need to cancel her appt with Dr Cavanaugh for 09/29/20.
== END 2020-10-05 23:59 ==
LOC: WC 10:15
PROVIDERS: PCP Physician Assistant; Visit Provider Podiatrist Foot & Ankle Surgery
DX: L89.894 Pressure ulcer of other site, stage 4 (principal); M06.9 Rheumatoid arthritis, unspecified; I73.9 Peripheral vascular disease, unspecified; M86.172 Other acute osteomyelitis, left ankle and foot; L84 Corns and callosities; Z79.52 Long term (current) use of systemic steroids; I67.82 Cerebral ischemia
CPT/HCPCS: 11042; 71046; 87070; 87075; 87077; 87186; 87205; 99213; G0463

== ENCOUNTER 2020-11-04 15:00 | Outpatient (RCR) | payer MEDICARE, SELFPAY ==
[2020-10-06 00:26] VITALS: BP 172/71; PULSE 96; RESP 16; TEMP 36.8
[2020-10-06 11:34] VITALS: BP 129/33; PULSE 72; RESP 16; TEMP 36.4; BMI 18.6
--- NOTE | 2020-10-06 12:44 | PN.PCM_ITS ---
History of Present Illness Date of Service: 10/06/20 Chief Complaint: Bilateral 1st metatarsal ulceration with chronic refractory osteomyelitis of the left first metatarsal. History of Wound: Kylah is a 75-year-old female who was referred here for treatment of an ulcer at the base of her great toe at her metatarsal head from Dr. Poe, her senior principal process engineer. She has been receiving treatment to this area for the last [address] Poe has attempted to debride and close it surgically with sutures but it reopened and it hasn't healed. She has a history of ulcerations underneath her big toe on both feet. 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 Patient has had a recent culture on 05/11/20, positive for Staphylococcus lugendenosis. Another culture was taken which demonstrated staph epididymis. With most recent culture taken 07/01/2020 with no growth seen. She has previously demonstrated an apparent allergy to collagen hydrogel. The patient has had vascular studies, without evidence of significant superficial vein incompetence in the left lower extremity in 2017. Her noninvasive lower extremity arterial study reveals normal ankle?brachial indices bilaterally in 2017. New studies on 06/30/20 showed moderate distal small vessel disease bilaterally at the digits with some non compressible vessels. Patient saw her vascular surgeon, Dr Oseguera, who did intervention on the patient on 07/21/20. Dr. Oseguera has no further interventions planned at this time. She had MRI on 06/25/20 which showed osteomyelitis to left 1st metatarsal. Patient saw Dr Clements who started her on cephalexin and doxycycline to treat her osteomyelitis. The patient is noted to be on prednisone and methotrexate for her rheumatoid arthritis. These are acknowledged to be possible inhibitors to wound healing. Patient noted to have painful feet due to her rheumatoid arthritis. Patient had callus to right plantar first MPJ with noted underlying ulceration noted. Patient has had wound here in the past. Patient relates that she goes to special shoe store to get offloading insert added to her shoes to help prevent callus buildup. Patient relates addition of pads to her slippers of also been helpful. Progress of Wound: Stable known real change noted Subjective Subjective Patient seen and examined resting comfortably. Patient denies any new pedal complaints. Patient denies any nausea, fever, chills, chest pain, shortness of breath, cough, streaking, purulence, vomiting. Patient relates that she was recently hospitalized over the weekend for heart attack at [facility]. S he is feeling much better Objective Data Objective Data Vital Signs: Vital Signs Temp Pulse Resp BP 97.6 F L 72 16 129/33 H 10/06/20 11:34 10/06/20 11:34 10/06/20 11:34 10/06/20 11:34 Oxygen Delivery Method Room Air Weight: 46.266 kg Body Mass Index (BMI) 18.6 Physical Exam Narrative Const alert and no apparent distress General Appearance: cooperative and comfortable Lymph Lymphatic: no lymphedema noted Resp normal respiratory effort Effort and Inspection: able to speak in complete sentences Extremity no calf tenderness, negative yasmine and baker sign no lower extremity edema General Extremity: tenderness to palpation palpable metatarsal heads. There is fat pad atrophy noted with easily palpable metatarsal heads 1 through 5 bilaterally. Negative for clubbing or cyanosis or ecchymosis or erythema Vasc Peripheral Pulses: posterior tibial pulses absent and dorsalis pedis pulses present but diminished, normal capillary refill, no acute ischemic skin changes noted, cool temperature Skin General Skin Exam: dry skin, decreased hair growth noted; Negative for ecchymosis, eschar, pallor, rashes Wound Narrative: ulcers noted to plantar first metatarsal head bilaterally No malodor, erythema, purulence, streaking, fluctuation, crepitus. Skin is atrophic and hairless. Granular base. Wounds probe to bone bilaterally. Scant serous drainage noted to bilateral wounds. There is significant amount of fat pad atrophy noted to bilateral feet secondary to patient's rheumatoid arthritis. There is noted callus buildup within the ulceration site with and overlying the wounds. Red irritated area noted to plantar lateral fifth metatarsal head on the left- hand side is improved. Callus buildup noted to ulceration sites bilateral plantar first metatarsal head. There is also callus buildup noted to left foot plantar metatarsal heads 3 and 4 Neuro Gait (Neuro): heel to toe Sensory Exam: extremities light-touch: Intact MSK Motor Exam: strength 5/5 throughout, ROM to foot and ankle joints within normal limits Psych Appearance: appropriate Attitude: calm Debridement Note Debridement Note Post-Debridement Measurements and Additional Note: Post-Debridement Measurements/Treatment WC - Nurse 1 - General Ulcer Assessment Start: 10/06/20 11:34 Freq: Status: Active Protocol: GEORGE Activity Type Activity Date Activity User E-Sign Co-Sign Detail Recorded Client Recorded Date Recorded By Document 10/06/20 11:34 [id number] 10/06/20 11:43 MW 10/06/20 11:34 WC - Today's Visit Information Type of service Follow-up Visit (Physician/ON AIR HOST ) Arrival Mode Ambulatory Transfer Assistance None Accompanied by Patient Identification Verified (Name & Yes ) Patient Requires Transmission-Based No Precautions Safety Precautions NA Height and Weight Body Mass Index (BMI) 18.6 BMI Classification Normal Vital Signs Temperature (97.8 F-99.1 F) 97.6 F L Temperature Source Temporal Pulse Rate (60-100) 72 Pulse Location Monitor Respiratory Rate (12-18) 16 Respiratory rate source Observation Oxygen Delivery Method Room Air Blood Pressure (90/60-120/80) 129/33 H Blood Pressure Mean (mm Hg) 65 Source Monitor Position Sitting Blood Pressure Location Left Arm History Since Last Visit- (Skip if this is Patient's initial visit) Have you changed medications since your Yes last visit? Any new allergies or adverse reactions No Had a fall/change in ADL's that may No increase risk of falls Signs or symptoms of abuse and/or No neglect since last visit Have you been in the hospital since your Yes last visit? Has dressing in place as prescribed Yes Has compression in place as prescribed N/A Has offloadiing in place as prescribed N/A Experienced any changes in pain level or No management Left Footwear Regular Shoe Right Footwear Regular Shoe Pain Scale: 0-10 Numeric Is Patient Pain Free? Yes - Nurse 1 - General Ulcer Measurement Start: 10/06/20 11:34 Freq: Status: Active Protocol: Activity Type Activity Date Activity User E-Sign Co-Sign Detail Recorded Client Recorded Date Recorded By Document 10/06/20 11:34 [id number] 10/06/20 11:43 MW 10/06/20 11:34 Wound Center Nurse 1 5-right 1st metatarsal -Combined with other wound No -Current Size (cm) - Length 0.1 -Current Size (cm) - Width 0.1 -Current Size (cm) - Depth 0.1 -Total Square Cm 0.01 -Photo Taken No -Tunneling No -Undermining/Tunneling No -Circular Undermining No -Exudate Amt None Present -Wound Margin Flat & Intact -Granulation Amt None Present (0 %) -Granulation Quality N/A -Slough/Fibrin Yes -Necrosis Amt Large (67-100%) -Necrotic Tissue Type Adherent Slough -Structure Exposed N/A -Texture (Анна-wound Skin Appearance) Assessed,Callus -Moisture (Анна-wound Skin Appearance) No Abnormality, Assessed -Color (Анна-wound Skin Appearance) No Abnormality, Assessed -Temperature (Анна-wound Skin No Abnormality Appearance) (Pt Warm) -Tenderness on Palpation (Анна-wound Yes Skin Appearance) -Ulcer Cleansing Rinsed/ Irrigated with Saline -Foul Odor after Cleansing No -Anesthetic Used 5% Lidocaine Gel #4 left medial hallux -Combined with other wound No -Current Size (cm) - Length 0.1 -Current Size (cm) - Width 0.1 -Current Size (cm) - Depth 0.1 -Total Square Cm 0.01 -Photo Taken No -Epithelialization None Present -Undermining/Tunneling No -Circular Undermining No -Exudate Amt Small -Exudate Type Purulent -Wound Margin Flat & Intact -Granulation Amt None Present (0 %) -Granulation Quality N/A -Slough/Fibrin Yes -Necrosis Amt Large (67-100%) -Necrotic Tissue Type Adherent Slough -Structure Exposed N/A -Texture (Анна-wound Skin Appearance) Assessed -Moisture (Анна-wound Skin Appearance) No Abnormality, Assessed -Color (Анна-wound Skin Appearance) No Abnormality, Assessed -Temperature (Анна-wound Skin No Abnormality Appearance) (Pt Warm) -Tenderness on Palpation (Анна-wound Yes Skin Appearance) -Ulcer Cleansing Rinsed/ Irrigated with Saline -Anesthetic Used 5% Lidocaine Gel Lower Limb Edema Present No WC - Nurse 2 - General Ulcer CM Notes Start: 10/06/20 11:34 Freq: Status: Active Protocol: Activity Type Activity Date Activity User E-Sign Co-Sign Detail Recorded Client Recorded Date Recorded By Document 10/06/20 12:09 [email or web address] [id number] 10/06/20 12:19 REJI 10/06/20 12:09 Wound Center Nurse 2 5-right 1st metatarsal -Time 12:10 -Correct Patient Yes -Correct Side, Site, Position Yes -Correct Procedure Yes -Procedure Performed Yes -Type of Procedure Debridement -Clinical Debridement Subcutaneous -Tissue Removed Subcutaneous -Post Debridement (cm) - Length 0.2 -Post Debridement (cm) - Width 0.2 -Post Debridement (cm) - Depth 0.4 -Total Square (Post) (cm) 0.04 -Area of Debridement (cm) - Length 0.2 -Area of Debridement (cm) - Width 0.2 -Total Square (Area) (cm) 0.04 -Tunneling No -Undermining/Tunneling No -Circular Undermining No -Wound/Ulcer Outcome Not Healed -Ulcer Cleansing Rinsed/ Irrigated with Saline -Foul Odor after Cleansing No -Bioengineered Tissue No -Bleeding Controlled with Pressure -Offloading No -Treatment Response Procedure Tolerated Well -Debridement - Subq, 1st 20sq cm Yes #4 left medial hallux -Time 12:10 -Correct Patient Yes -Correct Side, Site, Position Yes -Correct Procedure Yes -Procedure Performed Yes -Type of Procedure Debridement -Clinical Debridement Subcutaneous -Tissue Removed Subcutaneous -Post Debridement (cm) - Length 0.5 -Post Debridement (cm) - Width 0.5 -Post Debridement (cm) - Depth 0.4 -Total Square (Post) (cm) 0.25 -Area of Debridement (cm) - Length 0.5 -Area of Debridement (cm) - Width 0.5 -Total Square (Area) (cm) 0.25 -Tunneling No -Undermining/Tunneling No -Circular Undermining No -Wound/Ulcer Outcome Not Healed -Ulcer Cleansing Rinsed/ Irrigated with Saline -Foul Odor after Cleansing Yes, Due to Product Use -Bioengineered Tissue No -Bleeding Controlled with Pressure -Offloading No -Treatment Response Procedure Tolerated Well -Debridement - Subq, 1st 20sq cm No Pain Scale: 0-10 Numeric Is Patient Pain Free? Yes WC - Nurse 3 - General Ulcer D/C NN Start: 10/06/20 11:34 Freq: Status: Active Protocol: Activity Type Activity Date Activity User E-Sign Co-Sign Detail Recorded Client Recorded Date Recorded By Document 10/06/20 12:20 [email or web address] [id number] 10/06/20 12:21 REJI 10/06/20 12:20 Wound Care Nurse 3 5-right 1st metatarsal -Ulcer Cleansing Rinsed/ Irrigated with Saline -Foul Odor after Cleansing No -Primary Dressing Applied C Hydrogel ($) -Primary Dressing Covered/Secured with Dry Gauze & Roll Gauze, Secured with Tape #4 left medial hallux -Ulcer Cleansing Rinsed/ Irrigated with Saline -Foul Odor after Cleansing No -Primary Dressing Applied C Hydrogel ($) -Primary Dressing Covered/Secured with Dry Gauze & Roll Gauze, Secured with Tape Pain Scale: 0-10 Numeric Is Patient Pain Free? Yes WC - Visit Discharge Discharge Condition Stable Ambulatory Status Ambulatory Transportation [facility] Medication Reconcilliation completed & Yes provided to patient/care provider Clinical Summary of Care Provided Yes Wound debrided: Subfirst metatarsal head Laterality: Right Type of Debridement: Excisional debridement Anesthesia Used: 4% Lidocaine Solution Depth: to bone Percentage of wound debrided: 100 Instrument Used: 3mm curette Tissue Removed: includes fibrous, devitalized, biofilm, callus and slough tissue Severity: Fat Layer Exposed Amount of bleeding with debridement: Mild Bleeding Controlled with: Pressure Patient tolerated procedure: Patient tolerated procedure well Additional Wound Wound debrided: Subfirst metatarsal head Laterality: Left Type of Debridement: Excisional debridement Anesthesia Used: 4% Lidocaine Solution Depth: to bone (Debrided to subcu) Percentage of wound debrided: 100 Instrument Used: 3mm curette Tissue Removed: Includes fibrous, devitalized, biofilm, callus and slough tissue Severity: Necrosis of Bone Amount of bleeding with debridement: Mild Bleeding Controlled with: Pressure Patient tolerated procedure: Patient tolerated procedure well Assessment/Plan Assessment/Plan (1) Pressure ulcer of left foot, stage 4: CODE(S): L89.894 - Pressure ulcer of other site, stage 4 (2) Pressure ulcer of right foot, stage 4: CODE(S): L89.894 - Pressure ulcer of other site, stage 4 (3) Osteomyelitis: CODE(S): M86.9 - Osteomyelitis, unspecified QUALIFIERS: Laterality: left Osteomyelitis location: foot Osteomyelitis type: other acute Qualified Code(s): M86.172 - Other acute osteomyelitis, left ankle and foot (4) Left foot pain: CODE(S): M79.672 - Pain in left foot (5) Fat pad atrophy of foot: CODE(S): L90.9 - Atrophic disorder of skin, unspecified (6) PAD (peripheral artery disease): CODE(S): I73.9 - Peripheral vascular disease, unspecified (7) Steroid long-term use: (8) Delayed wound healing: CODE(S): T14.8XXD - Other injury of unspecified body region, subsequent encounter (9) Corns and callosities: CODE(S): L84 - Corns and callosities (10) Rheumatoid arthritis: CODE(S): M06.9 - Rheumatoid arthritis, unspecified QUALIFIERS: Laterality: bilateral Rheumatoid arthritis location: foot Rheumatoid factor presence: unspecified presence Qualified Code(s): M06.9 - Rheumatoid arthritis, unspecified (11) Pain in right foot: CODE(S): M79.671 - Pain in right foot PLAN: Patient seen and examined. Ulcerations remain stable and clinically noninfected in appearance. Serosanguine ous drainage is noted to come out of bilateral foot wound upon removal of callus. There is no clinical signs of infection even though wound probes to bone. Patient may not amount of much of a clinical response to infection given chronic steroid use for her rheumatoid arthritis. Red area noted to plantar fifth MPJ on the left side is improved but still present and likely from shoe irritation. This is concerning for future wound development. Pain to palpation. Patient also relates recent hospital admission due to a heart attack. Patient says she is feeling better now. Patient will need to get cardiac clearance prior to resuming HBO work-up Kylah's ulcers were evaluated and debrided today at the wound center after verbal consent obtained. Plantar first metatarsal wounds bilaterally has easily bone exposed. Left foot xray 05/29/2020 did not show osteomyelitis. Given clinical appearance MRI was ordered. MRI 06/25/20 showed evidence of osteomyelitis to left diaphysis of 1st metatarsal. Cultures obtained 06/30/2020 did not show any growth. Possible previous antibiotics patient was on have cleared up skin infection but bone infection may remain. Dr Davis in Infectious disease saw patient and prescribed cephalexin and doxycycline for treatment. Patient has since finished these. Culture obtained 09/15/2020 demonstrated Staphylococcus Lugdenensis and Corynebacterium species. Patient was started on doxycycline. Patient relates she only has a couple days left of the antibiotic. Patient was given a refill for doxycycline sent to her pharmacy. Discussed with patient to follow-up with Dr. Clements for possible need for another long-term course of IV antibiotics or oral antibiotics for this recurrent osteomyelitis. Patient will contact for further work-up. LEAS 06/30/20 showed moderate distal small vessel disease bilaterally at the digits. The left foot was noted to have biphasic pulses with CRUZ of 1.27 and TBI of 0.37. The left PT was noncompressible. The right foot PT and DP were noncompressible and TBI of 0.4 with triphasic and biphasic pulses. Patient had procedure with Dr Oseguera 07/21/20. Patient reports that the procedure went well. Dr. Oseguera has no further interventions planned at this time. The etiology of her ulcers appears to be from pressure at sites of metatarsal heads as there is significant fat pad atrophy. Discussed with the patient the importance of proper shoe gear with good padding to supplement lost fat pad. This is most likely due to her rheumatoid arthritis, chronic prednisone treatment may also have a role in the nonhealing of the ulcers. Discussed with the patient possibility of ordering custom inserts self-pay. Patient will consider. Offloading was discussed, patient relates that she has a surgical shoe with for efoot offloaded. Patient presents today and tennis shoes with offloading inserts noted to bilateral shoes. Recommend patient wear surgical shoe at this time. She was advised to try to avoid standing and being on her feet for long periods and to elevate her feet as much as possible. Patient slippers which she wears well indoors have also been adjusted with an offloading insert bilaterally. Patient relates that these been working well for her. Discussed importance of smoking cessation, blood sugar control, weight management, offloading, proper nutrition, and hygiene to optimize healing pot ential. Discussed that her chronic steroid use for her RA can impact wound healing as well as impact her body's ability to mount an immune response. Also her vascular disease may also be playing into her poor ability to heal. There is suspicion that osteomyelitis infection may still remain given factors that may be impeding wound healing as well as chronic bone exposure to bilateral 1st metatarsals now through the wounds. Upon previous discussion it was noted that the patient did not wish to undergo bone debridement given the extent of osteomyelitis per MRI as well as her already established history of poor wound healing. It was decided that it was not worth the risk of potentially creating a larger wound that potentially more bacteria could then use to infect the wound. The remaining bone exposure puts patient at clinical osteomyelitis since I began seeing patient. There is no definitive need to repeat imaging at the end of antibiotic therapy per ID with Dr Clements. Patient completed 6 week course of cephalexin and doxycycline. Given new monitor drainage to wound will consider follow-up with Dr. Clements. Patient wounds are too small for skin substitute applications. Patient also noted to not to be diabetic but does have history of osteomyelitis so may potentially be a candidate for hyperbaric oxygen therapy. She has since finished her course of antibiotics per infectious disease to treat the osteomyelitis. We will discuss to see if patient might be a potential candidate under nondiabetic guidelines. This would include further work up with labs, imaging, and clearance consultation. If patient is approved for hyperbaric oxygen therapy our goals would be to heal her wounds to bilateral feet while continuing regular debridements, monitoring, offloading, and medical optimizing and monitoring. Patient to see Dr. Steinberg for HBO evaluation. This was given prior to patient's recent heart attack and hospital admission. Patient will need to get cardiac clearance prior to being approved for HBO. Encouraged protein rich diet and protein supplements. Advised to call with questions or concerns. All questions answered. Continue wound care to foot ulcerations daily. Follow-up in 1 week. This note was generated with [employer] dictation software. It may contain incorrect words, spelling, and punctuation that were not noted in checking the note before signing.
--- NOTE | 2020-10-12 08:15 | WC ---
Called Dr Suarez's office to ask for cardiac clearance, Left a voicemail with Tamanna, the nurse for Dr Suarez informing them the reason for her HBOT for the treatment of Osteomyelitis to left foot. Left them Sarabjit's extension if they have any further questions regarding this matter.
[2020-10-13 10:10] VITALS: BP 136/48; PULSE 66; RESP 18; TEMP 36.6; BMI 18.6
--- NOTE | 2020-10-14 14:52 | PCM.WC.PN ---
History of Present Illness Date of Service: 10/13/20 Chief Complaint: Bilateral 1st metatarsal ulceration with chronic refractory osteomyelitis of the left first metatarsal. History of Wound: Kylah is a 75-year-old female who was referred here for treatment of an ulcer at the base of her great toe at her metatarsal head from Dr. Poe, her clip riveter. She has been receiving treatment to this area for the last [address] Poe has attempted to debride and close it surgically with sutures but it reopened and it hasn't healed. She has a history of ulcerations underneath her big toe on both feet. 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 Patient has had a recent culture on 05/11/20, positive for Staphylococcus lugendenosis. Another culture was taken which demonstrated staph epididymis. With most recent culture taken 07/01/2020 with no growth seen. She has previously demonstrated an apparent allergy to collagen hydrogel. The patient has had vascular studies, without evidence of significant superficial vein incompetence in the left lower extremity in 2017. Her noninvasive lower extremity arterial study reveals normal ankle?brachial indices bilaterally in 2017. New studies on 06/30/20 showed moderate distal small vessel disease bilaterally at the digits with some non compressible vessels. Patient saw her vascular surgeon, Dr Oseguera, who did intervention on the patient on 07/21/20. Dr. Oseguera has no further interventions planned at this time. She had MRI on 06/25/20 which showed osteomyelitis to left 1st metatarsal. Patient saw Dr Clements who started her on cephalexin and doxycycline to treat her osteomyelitis. The patient is noted to be on prednisone and methotrexate for her rheumatoid arthritis. These are acknowledged to be possible inhibitors to wound healing. Patient noted to have painful feet due to her rheumatoid arthritis. Patient had callus to right plantar first MPJ with noted underlying ulceration noted. Patient has had wound here in the past. Patient relates that she goes to special shoe store to get offloading insert added to her shoes to help prevent callus buildup. Patient relates addition of pads to her slippers of also been helpful. Progress of Wound: Increased drainage noted to left foot wound Subjective Subjective Patient seen and examined resting comfortably. Patient denies any new pedal complaints. Patient denies any nausea, fever, chills, chest pain, shortness of breath, cough, streaking, purulence, vomiting. Objective Data Objective Data Vital Signs: Vital Signs Temp Pulse Resp BP 97.8 F 66 18 136/48 H 10/13/20 10:10 10/13/20 10:10 10/13/20 10:10 10/13/20 10:10 Oxygen Delivery Method Room Air Weight: 46.266 kg Body Mass Index (BMI) 18.6 Lab / Micro Data Micro: Microbiology 10/13/20 11:05 Bone - Left Foot Gram Stain - Final 10/13/20 11:05 Bone - Left Foot Wound Culture - Preliminary Gram positive organism Physical Exam Narrative Const alert and no apparent distress General Appearance: cooperative and comfortable Lymph Lymphatic: no lymphedema noted Resp normal respiratory effort Effort and Inspection: able to speak in complete sentences Extremity no calf tenderness, negative yasmine and baker sign no lower extremity edema General Extremity: tenderness to palpation palpable metatarsal heads. There is Significant fat pad atrophy noted with easily palpable metatarsal heads 1 through 5 bilaterally. Negative for clubbing or cyanosis or ecchymosis or erythema Vasc Peripheral Pulses: posterior tibial pulses absent and dorsalis pedis pulses present but diminished, normal capillary refill, no acute ischemic skin changes noted, cool temperature Skin General Skin Exam: dry flaky skin, decreased hair growth noted; Negative for ecchymosis, eschar, pallor, rashes Wound Narrative: ulcers noted to plantar first metatarsal head bilaterally No malodor, erythema, purulence, streaking, fluctuation, crepitus. Skin is atrophic and hairless. Granular base. Wounds probe to bone bilaterally. Serosanguineous drainage noted to bilateral wounds with left worse than right.. There is significant amount of fat pad atrophy noted to bilateral feet secondary to patient's rheumatoid arthritis. There is noted callus buildup within the ulceration site with and overlying the wounds. There is noted to be some areas of soft bone noted when probing and left plantar foot wound. No purulence was expressed. Red irritated area noted to plantar lateral fifth metatarsal head on the left-hand side remains. Callus buildup noted to ulceration sites bilateral plantar first metatarsal head. There is also callus buildup noted to left foot plantar metatarsal heads 3 and 4 Neuro Gait (Neuro): heel to toe Sensory Exam: extremities light-touch: Intact MSK Motor Exam: strength 5/5 throughout, ROM to foot and ankle joints within normal limits Psych Appearance: appropriate Attitude: calm Debridement Note Debridement Note Post-Debridement Measurements and Additional Note: Post-Debridement Measurements/Treatment - Nurse 1 - General Ulcer Assessment Start: 10/06/20 11:34 Freq: Status: Active Protocol: GEORGE Activity Type Activity Date Activity User E-Sign Co-Sign Detail Recorded Client Recorded Date Recorded By Document 10/06/20 11:34 MW [id number] 10/06/20 11:43 MW Document 10/13/20 10:10 DL [id number] 10/13/20 10:23 DL 10/06/20 10/13/20 11:34 10:10 WC - Today's Visit Information Type of service Follow-up Visit Follow-up Visit (Physician/CORRUGATED SHEET MATERIAL SHEETER (Physician/CORRUGATED SHEET MATERIAL SHEETER ) ) Arrival Mode Ambulatory Cane Transfer Assistance None Stretcher Accompanied by Patient Identification Verified (Name & Yes Yes ) Patient Requires Transmission-Based No No Precautions Safety Precautions NA Height and Weight Body Mass Index (BMI) 18.6 18.6 BMI Classification Normal Normal Vital Signs Temperature (97.8 F-99.1 F) 97.6 F L 97.8 F Temperature Source Temporal Temporal Pulse Rate (60-100) 72 66 Pulse Location Monitor Monitor Respiratory Rate (12-18) 16 18 Respiratory rate source Observation Observation Oxygen Delivery Method Room Air Blood Pressure (90/60-120/80) 129/33 H 136/48 H Blood Pressure Mean (mm Hg) 65 77 Source Monitor Monitor Position Sitting Blood Pressure Location Left Arm History Since Last Visit- (Skip if this is Patient's initial visit) Have you changed medications since your Yes No last visit? Any new allergies or adverse reactions No No Had a fall/change in ADL's that may No No increase risk of falls Signs or symptoms of abuse and/or No No neglect since last visit Have you been in the hospital since your Yes No last visit? Has dressing in place as prescribed Yes Yes Has compression in place as prescribed N/A Yes Has offloadiing in place as prescribed N/A Yes Experienced any changes in pain level or No No management Left Footwear Regular Shoe Custom Shoe Right Footwear Regular Shoe Custom Shoe Pain Scale: 0-10 Numeric Is Patient Pain Free? Yes Yes WC - Nurse 1 - General Ulcer Measurement Start: 10/06/20 11:34 Freq: Status: Active Protocol: Activity Type Activity Date Activity User E-Sign Co-Sign Detail Recorded Client Recorded Date Recorded By Document 10/06/20 11:34 MW [id number] 10/06/20 11:43 MW Document 10/13/20 10:10 DL [id number] 10/13/20 10:23 DL 10/06/20 10/13/20 11:34 10:10 Wound Center Nurse 1 5-right 1st metatarsal -Combined with other wound No -Current Size (cm) - Length 0.1 0.1 -Current Size (cm) - Width 0.1 0.1 -Current Size (cm) - Depth 0.1 0.1 -Total Square Cm 0.01 0.01 -Photo Taken No No -Tunneling No -Undermining/Tunneling No -Circular Undermining No -Exudate Amt None Present None Present -Wound Margin Flat & Intact Thickened -Granulation Amt None Present (0 Small (1-33%) %) -Granulation Quality N/A [place] -Slough/Fibrin Yes -Necrosis Amt Large (67-100%) Small (1-33%) -Necrotic Tissue Type Adherent Slough Adherent Slough -Structure Exposed N/A N/A -Texture (Анна-wound Skin Appearance) Assessed,Callus Callus,Scarring -Moisture (Анна-wound Skin Appearance) No Abnormality, Dry/Scaly Assessed -Color (Анна-wound Skin Appearance) No Abnormality, Hemosiderin Assessed Staining -Temperature (Анна-wound Skin No Abnormality No Abnormality Appearance) (Pt Warm) (Pt Warm) -Tenderness on Palpation (Анна-wound Yes No Skin Appearance) -Ulcer Cleansing Rinsed/ Wound Cleanser Irrigated with Saline -Foul Odor after Cleansing No No -Anesthetic Used 5% Lidocaine 4% Lidocaine Gel Solution #4 left medial hallux -Combined with other wound No -Current Size (cm) - Length 0.1 0.2 -Current Size (cm) - Width 0.1 0.2 -Current Size (cm) - Depth 0.1 0.2 -Total Square Cm 0.01 0.04 -Photo Taken No No -Epithelialization None Present -Undermining/Tunneling No -Maximum Distance #2 (cm) 0.2 -Circular Undermining No Yes -Exudate Amt Small Small -Exudate Type Purulent Yellow/Green -Wound Margin Flat & Intact Thickened -Granulation Amt None Present (0 Small (1-33%) %) -Granulation Quality N/A -Slough/Fibrin Yes -Necrosis Amt Large (67-100%) Small (1-33%) -Necrotic Tissue Type Adherent Slough Adherent Slough -Structure Exposed N/A N/A -Texture (Анна-wound Skin Appearance) Assessed Callus,Scarring -Moisture (Анна-wound Skin Appearance) No Abnormality, Dry/Scaly Assessed -Color (Анна-wound Skin Appearance) No Abnormality, Hemosiderin Assessed Staining -Temperature (Анна-wound Skin No Abnormality Appearance) (Pt Warm) -Tenderness on Palpation (Анна-wound Yes No Skin Appearance) -Ulcer Cleansing Rinsed/ Rinsed/ Irrigated with Irrigated with Saline Saline -Foul Odor after Cleansing No -Anesthetic Used 5% Lidocaine 4% Lidocaine Gel Solution Lower Limb Edema Present No WC - Nurse 2 - General Ulcer CM Notes Start: 10/06/20 11:34 Freq: Status: Active Protocol: Activity Type Activity Date Activity User E-Sign Co-Sign Detail Recorded Client Recorded Date Recorded By Document 10/06/20 12:09 [id number] 10/06/20 12:19 Document 10/13/20 10:56 [id number] 10/13/20 11:09 10/06/20 10/13/20 12:09 10:56 Wound Center Nurse 2 5-right 1st metatarsal -Time 12:10 10:57 -Correct Patient Yes Yes -Correct Side, Site, Position Yes Yes -Correct Procedure Yes Yes -Procedure Performed Yes Yes -Type of Procedure Debridement Debridement -Clinical Debridement Subcutaneous Subcutaneous -Tissue Removed Subcutaneous Subcutaneous -Post Debridement (cm) - Length 0.2 0.1 -Post Debridement (cm) - Width 0.2 1 -Post Debridement (cm) - Depth 0.4 0.4 -Total Square (Post) (cm) 0.04 0.1 -Area of Debridement (cm) - Length 0.2 0.1 -Area of Debridement (cm) - Width 0.2 0.1 -Total Square (Area) (cm) 0.04 0.01 -Tunneling No No -Undermining/Tunneling No No -Circular Undermining No No -Wound/Ulcer Outcome Not Healed Not Healed -Ulcer Cleansing Rinsed/ Rinsed/ Irrigated with Irrigated with Saline Saline -Foul Odor after Cleansing No No -Bioengineered Tissue No No -Bleeding Controlled with Pressure Pressure -Offloading No No -Treatment Response Procedure Procedure Tolerated Well Tolerated Well -Debridement - Subq, 1st 20sq cm Yes Yes #4 left medial hallux -Time 12:10 10:58 -Correct Patient Yes Yes -Correct Side, Site, Position Yes Yes -Correct Procedure Yes Yes -Procedure Performed Yes Yes -Type of Procedure Debridement Incision & Drainage -Clinical Debridement Subcutaneous Bone -Tissue Removed Subcutaneous Fascia,Tendon -Post Debridement (cm) - Length 0.5 0.3 -Post Debridement (cm) - Width 0.5 0.1 -Post Debridement (cm) - Depth 0.4 0.3 -Total Square (Post) (cm) 0.25 0.03 -Area of Debridement (cm) - Length 0.5 0.3 -Area of Debridement (cm) - Width 0.5 0.1 -Total Square (Area) (cm) 0.25 0.03 -Tunneling No No -Undermining/Tunneling No No -Circular Undermining No No -Wound/Ulcer Outcome Not Healed Not Healed -Ulcer Cleansing Rinsed/ Rinsed/ Irrigated with Irrigated with Saline Saline -Foul Odor after Cleansing Yes, Due to No Product Use -Bioengineered Tissue No No -Bleeding Controlled with Pressure Pressure -Offloading No No -Treatment Response Procedure Procedure Tolerated Well Tolerated Well -Debridement - Subq, 1st 20sq cm No -Debridement - Bone, 1st 20sq cm Yes Pain Scale: 0-10 Numeric Is Patient Pain Free? Yes Yes WC - Nurse 3 - General Ulcer D/C NN Start: 10/06/20 11:34 Freq: Status: Active Protocol: Activity Type Activity Date Activity User E-Sign Co-Sign Detail Recorded Client Recorded Date Recorded By Document 10/06/20 12:20 JF [id number] 10/06/20 12:21 JF Document 10/13/20 11:12 DL [id number] 10/13/20 11:20 DL 10/06/20 10/13/20 12:20 11:12 Wound Care Nurse 3 5-right 1st metatarsal -Ulcer Cleansing Rinsed/ Rinsed/ Irrigated with Irrigated with Saline Saline -Foul Odor after Cleansing No No -Primary Dressing Applied C Hydrogel ($) -Other Dressing hydrogel -Primary Dressing Covered/Secured with Dry Gauze & Dry Gauze & Roll Gauze, Roll Gauze, Secured with Secured with Tape Tape #4 left medial hallux -Ulcer Cleansing Rinsed/ Rinsed/ Irrigated with Irrigated with Saline Saline -Foul Odor after Cleansing No No -Primary Dressing Applied C Hydrogel ($) -Other Dressing hydrogel -Primary Dressing Covered/Secured with Dry Gauze & Dry Gauze & Roll Gauze, Roll Gauze, Secured with Secured with Tape Tape Treatment Response Procedure Tolerated Well Pain Scale: 0-10 Numeric Is Patient Pain Free? Yes Yes WC - Visit Discharge Discharge Condition Stable Stable Ambulatory Status Ambulatory Ambulatory Transportation Private Auto Private Auto Medication Reconcilliation completed & Yes provided to patient/care provider Clinical Summary of Care Provided Yes Wound debrided: Plantar first metatarsal head Laterality: Right Type of Debridement: Excisional debridement Anesthesia Used: 4% Lidocaine Solution Depth: to bone Percentage of wound debrided: 100 Instrument Used: 3mm curette Tissue Removed: includes fibrous, devitalized, biofilm, callus and slough tissue Severity: Fat Layer Exposed (Probes to bone debrided to subcu) Amount of bleeding with debridement: Mild Bleeding Controlled with: Pressure Patient tolerated procedure: Patient tolerated procedure well Additional Wound Wound debrided: Plantar first metatarsal head Laterality: Left Type of Debridement: Excisional debridement Anesthesia Used: 4% Lidocaine Solution Depth: to bone Percentage of wound debrided: 100 Instrument Used: 3mm curette Tissue Removed: Includes fibrous, devitalized, biofilm, callus and slough tissue Severity: Necrosis of Bone Amount of bleeding with debridement: Mild Bleeding Controlled with: Pressure Patient tolerated procedure: Patient tolerated procedure well Assessment/Plan Assessment/Plan (1) Pressure ulcer of left foot, stage 4: CODE(S): L89.894 - Pressure ulcer of other site, stage 4 (2) Pressure ulcer of right foot, stage 4: CODE(S): L89.894 - Pressure ulcer of other site, stage 4 (3) Osteomyelitis: CODE(S): M86.9 - Osteomyelitis, unspecified QUALIFIERS: Osteomyelitis type: other acute Osteomyelitis location: foot Laterality: left Qualified Code(s): M86.172 - Other acute osteomyelitis, left ankle and foot (4) Left foot pain: CODE(S): M79.672 - Pain in left foot (5) Fat pad atrophy of foot: CODE(S): L90.9 - Atrophic disorder of skin, unspecified (6) PAD (peripheral artery disease): CODE(S): I73.9 - Peripheral vascular disease, unspecified (7) Steroid long-term use: (8) Delayed wound healing: CODE(S): T14.8XXD - Other injury of unspecified body region, subsequent encounter (9) Corns and callosities: CODE(S): L84 - Corns and callosities (10) Rheumatoid arthritis: CODE(S): M06.9 - Rheumatoid arthritis, unspecified QUALIFIERS: Rheumatoid arthritis location: foot Rheumatoid factor presence: unspecified presence Laterality: bilateral Qualified Code(s): M06.9 - Rheumatoid arthritis, unspecified (11) Pain in right foot: CODE(S): M79.671 - Pain in right foot (12) Left foot infection: CODE(S): L08.9 - Local infection of the skin and subcutaneous tissue, unspecified PLAN: Patient seen and examined. Ulceration to right plantar first metatarsal head remained stable. On the left foot noted red spot to the fifth metatarsal head concerning for preulcerative area remains. Offloading pad to her shoe was further modified to help offload this area. Wound plantar first metatarsal head left foot noted to have increasing drainage. Upon debridement it was noted that the bone of the first metatarsal head is soft and is one area. This was debrided and sent to the lab this culture. Patient was started on doxycycline which was sent to patient's pharmacy. Patient also to follow up with Dr Clements. Patient also relates recent hospital admission. Awaiting due to a heart attack. Patient says she is feeling better now. Patient will need to get cardiac clearance prior to resuming HBO. Awaiting note from yarn finisher. Kylah's ulcers were evaluated and debrided today at the wound center after verbal consent obtained. Plantar first metatarsal wounds bilaterally has easily bone exposed. Left foot xray 05/29/2020 did not show osteomyelitis. Given clinical appearance MRI was ordered. MRI 06/25/20 showed evidence of osteomyelitis to left diaphysis of 1st metatarsal. Cultures obtained 06/30/2020 did not show any growth. Possible previous antibiotics patient was on have cleared up skin infection but bone infection may remain. Dr Clements in Infectious disease saw patient and prescribed cephalexin and doxycycline for treatment. Patient has since finished these. Culture obtained 09/15/2020 demonstrated Staphylococcus Lugdenensis and Corynebacterium species. Patient was started on doxycycline. Patient relates she only has a couple days left of the antibiotic. Patient was given a refill for doxycycline sent to her pharmacy. Discussed with patient to follow-up with Dr. Clements for possible need for another long-term course of IV antibiotics or oral antibiotics for this recurrent osteomyelitis. Patient will contact for further work-up. LEAS 06/30/20 showed moderate distal small vessel disease bilaterally at the digits. The left foot was noted to have biphasic pulses with CRUZ of 1.27 and TBI of 0.37. The left PT was noncompressible. The right foot PT and DP were noncompressible and TBI of 0.4 with triphasic and biphasic pulses. Patient had procedure with Dr Oseguera 07/21/20. Patient reports that the procedure went well. Dr. Oseguera has no further interventions planned at this time. The etiology of her ulcers appears to be from pressure at sites of metatarsal heads as there is significant fat pad atrophy. Discussed with the patient the importance of proper shoe gear with good padding to supplement lost fat pad. This is most likely due to her rheumatoid arthritis, chronic prednisone treatment may also have a role in the nonhealing of the ulcers. Discussed with the patient possibility of ordering custom inserts self-pay. Patient will consider. Offloading was discussed, patient relates that she has a surgical shoe with forefoot offloaded. Patient presents today and tennis shoes with offloading inserts noted to bilateral shoes. Recommend patient wear surgical shoe at this time. She was advised to try to avoid standing and being on her feet for long periods and to elevate her feet as much as possible. Patient slippers which she wears well indoors have also been adjusted with an offloading insert bilaterally. Patient relates that these been working well for her. Discussed importance of smoking cessation, blood sugar control, weight management, offloading, proper nutrition, and hygiene to optimize healing potential. Discussed that her chronic steroid use for her RA can impact wound healing as well as impact her body's ability to mount an immune response. Also her vascular disease may also be playing into her poor ability to heal. There is suspicion that osteomyelitis infection may still remain given factors that may be impeding wound healing as well as chronic bone exposure to bilateral 1st metatarsals now through the wounds. Upon previous discussion it was noted that the patient did not wish to undergo bone debridement given the extent of osteomyelitis per MRI as well as her already established history of poor wound healing. It was decided that it was not worth the risk of potentially creating a larger wound that potentially more bacteria could then use to infect the wound. The remaining bone exposure puts patient at clinical osteomyelitis since I began seeing patient. There is no definitive need to repeat imaging at the end of antibiotic therapy per ID with Dr Clements. Patient completed 6 week course of cephalexin and doxycycline. Given new monitor drainage to wound will consider follow-up with Dr. Clements. Patient wounds are too small for skin substitute applications. Patient also noted to not to be diabetic but does have history of osteomyelitis so may potentially be a candidate for hyperbaric oxygen therapy. She has since finished her course of antibiotics per infectious disease to treat the osteomyelitis. We will discuss to see if patient might be a potential candidate under nondiabetic guidelines. This would include further work up with labs, imaging, and clearance consultation. If patient is approved for hyperbaric oxygen therapy our goals would be to heal her wounds to bilateral feet while continuing regular debridements, monitoring, offloading, and medical optimizing and monitoring. Patient to see Dr. Steinberg for HBO evaluation. This was given prior to patient's recent heart attack and hospital admission. Patient will need to get cardiac clearance prior to being approved for HBO. Encouraged protein rich diet and protein supplements. Advised to call with questions or concerns. All questions answered. Continue wound care to foot ulcerations daily. Follow-up in 1 week. This note was generated with [employer] dictation software. It may contain incorrect words, spelling, and punctuation that were not noted in checking the note before signing. The problems addressed require a low medical decision making level which includes two or more minor problems, a stable chronic illness, or an acute uncomplicated illness or injury.
[2020-10-20 10:30] VITALS: BP 145/78; PULSE 72; RESP 18; TEMP 37.4; BMI 18.6
--- NOTE | 2020-10-20 12:10 | PCM.WC.PN ---
History of Present Illness Date of Service: 10/20/20 Chief Complaint: Bilateral 1st metatarsal ulceration with chronic refractory osteomyelitis of the left first metatarsal. History of Wound: Kylah is a 75-year-old female who was referred here for treatment of an ulcer at the base of her great toe at her metatarsal head from Dr. 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 She has been receiving treatment to this area for the last [address] Poe has attempted to debride and close it surgically with sutures but it reopened and it hasn't healed. She has a history of ulcerations underneath her big toe on both feet. 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 Patient has had a recent culture on 05/11/20, positive for Staphylococcus lugendenosis. Another culture was taken which demonstrated staph epididymis. With most recent culture taken 07/01/2020 with no growth seen. She has previously demonstrated an apparent allergy to collagen hydrogel. The patient has had vascular studies, without evidence of significant superficial vein incompetence in the left lower extremity in 2017. Her noninvasive lower extremity arterial study reveals normal ankle?brachial indices bilaterally in 2017. New studies on 06/30/20 showed moderate distal small vessel disease bilaterally at the digits with some non compressible vessels. Patient saw her vascular surgeon, Dr Oseguera, who did intervention on the patient on 07/21/20. Dr. Oseguera has no further interventions planned at this time. She had MRI on 06/25/20 which showed osteomyelitis to left 1st metatarsal. Patient saw Dr Clements who started her on cephalexin and doxycycline to treat her osteomyelitis. The patient is noted to be on prednisone and methotrexate for her rheumatoid arthritis. These are acknowledged to be possible inhibitors to wound healing. Patient noted to have painful feet due to her rheumatoid arthritis. Patient had callus to right plantar first MPJ with noted underlying ulceration noted. Patient has had wound here in the past. Patient relates that she goes to special shoe store to get offloading insert added to her shoes to help prevent callus buildup. Patient relates addition of pads to her slippers of also been helpful. Progress of Wound: Stable Subjective Subjective Patient seen and examined resting comfortably. Patient denies any new pedal complaints. Patient denies any nausea, fever, chills, chest pain, shortness of breath, cough, streaking, purulence, vomiting. Patient relates that she is having worsening of her RA and is having more pain. Objective Data Objective Data Vital Signs: Vital Signs Temp Pulse Resp BP 99.3 F H 72 18 145/78 H 10/20/20 10:30 10/20/20 10:30 10/20/20 10:30 10/20/20 10:30 Oxygen Delivery Method Room Air Weight: 46.266 kg Body Mass Index (BMI) 18.6 Lab / Micro Data Micro: Microbiology 10/13/20 11:05 Bone - Left Foot Gram Stain - Final 10/13/20 11:05 Bone - Left Foot Wound Culture - Final Staphylococcus epidermidis 10/13/20 11:05 Bone - Left Foot Anaerobic Culture - Final No anaerobic bacteria isolated. Physical Exam Narrative Const alert and no apparent distress General Appearance: cooperative and comfortable Lymph Lymphatic: no lymphedema noted Resp normal respiratory effort Effort and Inspection: able to speak in complete sentences Extremity no calf tenderness, negative yasmine and baker sign no lower extremity edema General Extremity: tenderness to palpation palpable metatarsal heads. There is Significant fat pad atrophy noted with easily palpable metatarsal heads 1 through 5 bilaterally. Negative for clubbing or cyanosis or ecchymosis or erythema Vasc Peripheral Pulses: posterior tibial pulses absent and dorsalis pedis pulses present but diminished, normal capillary refill, no acute ischemic skin changes noted, cool temperature Skin General Skin Exam: dry flaky skin, decreased hair growth noted; Negative for ecchymosis, eschar, pallor, rashes Wound Narrative: ulcers noted to plantar first metatarsal head bilaterally No malodor, erythema, purulence, streaking, fluctuation, crepitus. Skin is atrophic and hairless. Granular base. Wounds probe to bone bilaterally. Serosanguineous drainage noted to bilateral wounds with left worse than right. There is significant amount of fat pad atrophy noted to bilateral feet secondary to patient's rheumatoid arthritis. There is noted callus buildup within the ulceration site with and overlying the wounds. Red irritated area noted to plantar lateral fifth metatarsal head on the left-hand side remains. This is improved Callus buildup noted to ulceration sites bilateral plantar first metatarsal head. There is also callus buildup noted to left foot plantar metatarsal heads 3 and 4 Neuro Gait (Neuro): heel to toe Sensory Exam: extremities light-touch: Intact MSK Motor Exam: strength 5/5 throughout, ROM to foot and ankle joints within normal limits Psych Appearance: appropriate Attitude: calm Debridement Note Debridement Note Post-Debridement Measurements and Additional Note: Post-Debridement Measurements/Treatment - Nurse 1 - General Ulcer Assessment Start: 10/06/20 11:34 Freq: Status: Active Protocol: SHAHANA.LOWEXT Activity Type Activity Date Activity User E-Sign Co-Sign Detail Recorded Client Recorded Date Recorded By Document 10/06/20 11:34 MW [id number] 10/06/20 11:43 MW Document 10/13/20 10:10 DL [id number] 10/13/20 10:23 DL Document 10/20/20 10:30 DL [id number] 10/20/20 10:36 DL 10/06/20 10/13/20 10/20/20 11:34 10:10 10:30 WC - Today's Visit Information Type of service Follow-up Visit Follow-up Visit Follow-up Visit (Physician/COMMERCIAL SALES CONSULTANT (Physician/COMMERCIAL SALES CONSULTANT (Physician/COMMERCIAL SALES CONSULTANT ) ) ) Arrival Mode Ambulatory Cane Ambulatory Transfer Assistance None Stretcher None Accompanied by Patient Identification Verified (Name & Yes Yes ) Patient Requires Transmission-Based No No No Precautions Safety Precautions NA Height and Weight Body Mass Index (BMI) 18.6 18.6 18.6 BMI Classification Normal Normal Normal Vital Signs Temperature (97.8 F-99.1 F) 97.6 F L 97.8 F 99.3 F H Temperature Source Temporal Temporal Temporal Pulse Rate (60-100) 72 66 72 Pulse Location Monitor Monitor Monitor Respiratory Rate (12-18) 16 18 18 Respiratory rate source Observation Observation Observation Oxygen Delivery Method Room Air Blood Pressure (90/60-120/80) 129/33 H 136/48 H 145/78 H Blood Pressure Mean (mm Hg) 65 77 100 Source Monitor Monitor Monitor Position Sitting Blood Pressure Location Left Arm History Since Last Visit- (Skip if this is Patient's initial visit) Have you changed medications since your Yes No No last visit? Any new allergies or adverse reactions No No No Had a fall/change in ADL's that may No No No increase risk of falls Signs or symptoms of abuse and/or No No No neglect since last visit Have you been in the hospital since your Yes No No last visit? Has dressing in place as prescribed Yes Yes Yes Has compression in place as prescribed N/A Yes Has offloadiing in place as prescribed N/A Yes Yes Experienced any changes in pain level or No No No management Left Footwear Regular Shoe Custom Shoe Right Footwear Regular Shoe Custom Shoe Pain Scale: 0-10 Numeric Is Patient Pain Free? Yes Yes Yes WC - Nurse 1 - General Ulcer Measurement Start: 10/06/20 11:34 Freq: Status: Active Protocol: Activity Type Activity Date Activity User E-Sign Co-Sign Detail Recorded Client Recorded Date Recorded By Document 10/06/20 11:34 MW [id number] 10/06/20 11:43 MW Document 10/13/20 10:10 DL [id number] 10/13/20 10:23 DL Document 10/20/20 10:30 DL [id number] 10/20/20 10:36 DL 10/06/20 10/13/20 10/20/20 11:34 10:10 10:30 Wound Center Nurse 1 5-right 1st metatarsal -Combined with other wound No -Current Size (cm) - Length 0.1 0.1 0.1 -Current Size (cm) - Width 0.1 0.1 0.1 -Current Size (cm) - Depth 0.1 0.1 0.1 -Total Square Cm 0.01 0.01 0.01 -Photo Taken No No No -Tunneling No -Undermining/Tunneling No -Circular Undermining No -Exudate Amt None Present None Present None Present -Wound Margin Flat & Intact Thickened Thickened -Granulation Amt None Present (0 Small (1-33%) Large (67-100%) %) -Granulation Quality N/A [place] Pale -Slough/Fibrin Yes -Necrosis Amt Large (67-100%) Small (1-33%) None Present (0 %) -Necrotic Tissue Type Adherent Slough Adherent Slough -Structure Exposed N/A N/A N/A -Texture (Анна-wound Skin Appearance) Assessed,Callus Callus,Scarring Callus -Moisture (Анна-wound Skin Appearance) No Abnormality, Dry/Scaly Dry/Scaly Assessed -Color (Анна-wound Skin Appearance) No Abnormality, Hemosiderin No Abnormality Assessed Staining -Temperature (Анна-wound Skin No Abnormality No Abnormality No Abnormality Appearance) (Pt Warm) (Pt Warm) (Pt Warm) -Tenderness on Palpation (Анна-wound Yes No No Skin Appearance) -Ulcer Cleansing Rinsed/ Wound Cleanser Wound Cleanser Irrigated with Saline -Foul Odor after Cleansing No No No -Anesthetic Used 5% Lidocaine 4% Lidocaine 4% Lidocaine Gel Solution Solution #4 left medial hallux -Combined with other wound No -Current Size (cm) - Length 0.1 0.2 0.2 -Current Size (cm) - Width 0.1 0.2 0.2 -Current Size (cm) - Depth 0.1 0.2 0.3 -Total Square Cm 0.01 0.04 0.04 -Photo Taken No No No -Epithelialization None Present -Undermining/Tunneling No -Maximum Distance #2 (cm) 0.2 0.3 -Circular Undermining No Yes Yes -Exudate Amt Small Small Small -Exudate Type Purulent Yellow/Green Yellow/Green -Wound Margin Flat & Intact Thickened Thickened -Granulation Amt None Present (0 Small (1-33%) None Present (0 %) %) -Granulation Quality N/A -Slough/Fibrin Yes -Necrosis Amt Large (67-100%) Small (1-33%) Small (1-33%) -Necrotic Tissue Type Adherent Slough Adherent Slough Adherent Slough -Structure Exposed N/A N/A Bone -Texture (Анна-wound Skin Appearance) Assessed Callus,Scarring Callus -Moisture (Анна-wound Skin Appearance) No Abnormality, Dry/Scaly Dry/Scaly Assessed -Color (Анна-wound Skin Appearance) No Abnormality, Hemosiderin No Abnormality Assessed Staining -Temperature (Анна-wound Skin No Abnormality No Abnormality Appearance) (Pt Warm) (Pt Warm) -Tenderness on Palpation (Анна-wound Yes No No Skin Appearance) -Ulcer Cleansing Rinsed/ Rinsed/ Rinsed/ Irrigated with Irrigated with Irrigated with Saline Saline Saline -Foul Odor after Cleansing No No -Anesthetic Used 5% Lidocaine 4% Lidocaine 4% Lidocaine Gel Solution Solution Lower Limb Edema Present No WC - Nurse 2 - General Ulcer CM Notes Start: 10/06/20 11:34 Freq: Status: Active Protocol: Activity Type Activity Date Activity User E-Sign Co-Sign Detail Recorded Client Recorded Date Recorded By Document 10/06/20 12:09 [id number] [id number] 10/06/20 12:19 Document 10/13/20 10:56 [id number] 10/13/20 11:09 Document 10/20/20 10:48 [id number] 10/20/20 10:56 10/06/20 10/13/20 10/20/20 12:09 10:56 10:48 Wound Center Nurse 2 5-right 1st metatarsal -Time 12:10 10:57 10:49 -Correct Patient Yes Yes Yes -Correct Side, Site, Position Yes Yes Yes -Correct Procedure Yes Yes Yes -Procedure Performed Yes Yes Yes -Type of Procedure Debridement Debridement Debridement -Clinical Debridement Subcutaneous Subcutaneous Subcutaneous -Tissue Removed Subcutaneous Subcutaneous Subcutaneous -Post Debridement (cm) - Length 0.2 0.1 0.2 -Post Debridement (cm) - Width 0.2 1 0.3 -Post Debridement (cm) - Depth 0.4 0.4 0.3 -Total Square (Post) (cm) 0.04 0.1 0.06 -Area of Debridement (cm) - Length 0.2 0.1 0.2 -Area of Debridement (cm) - Width 0.2 0.1 0.3 -Total Square (Area) (cm) 0.04 0.01 0.06 -Tunneling No No No -Undermining/Tunneling No No No -Circular Undermining No No No -Wound/Ulcer Outcome Not Healed Not Healed Not Healed -Ulcer Cleansing Rinsed/ Rinsed/ Rinsed/ Irrigated with Irrigated with Irrigated with Saline Saline Saline -Foul Odor after Cleansing No No No -Bioengineered Tissue No No No -Bleeding Controlled with Pressure Pressure Pressure -Offloading No No No -Treatment Response Procedure Procedure Procedure Tolerated Well Tolerated Well Tolerated Well -Debridement - Subq, 1st 20sq cm Yes Yes Yes #4 left medial hallux -Time 12:10 10:58 10:51 -Correct Patient Yes Yes Yes -Correct Side, Site, Position Yes Yes Yes -Correct Procedure Yes Yes Yes -Procedure Performed Yes Yes Yes -Type of Procedure Debridement Incision & Debridement Drainage -Clinical Debridement Subcutaneous Bone Subcutaneous -Tissue Removed Subcutaneous Fascia,Tendon Subcutaneous -Post Debridement (cm) - Length 0.5 0.3 0.3 -Post Debridement (cm) - Width 0.5 0.1 0.4 -Post Debridement (cm) - Depth 0.4 0.3 0.2 -Total Square (Post) (cm) 0.25 0.03 0.12 -Area of Debridement (cm) - Length 0.5 0.3 0.3 -Area of Debridement (cm) - Width 0.5 0.1 0.4 -Total Square (Area) (cm) 0.25 0.03 0.12 -Tunneling No No No -Undermining/Tunneling No No No -Circular Undermining No No No -Wound/Ulcer Outcome Not Healed Not Healed Not Healed -Ulcer Cleansing Rinsed/ Rinsed/ Rinsed/ Irrigated with Irrigated with Irrigated with Saline Saline Saline -Foul Odor after Cleansing Yes, Due to No No Product Use -Bioengineered Tissue No No No -Bleeding Controlled with Pressure Pressure Pressure -Offloading No No No -Treatment Response Procedure Procedure Procedure Tolerated Well Tolerated Well Tolerated Well -Debridement - Subq, 1st 20sq cm No No -Debridement - Bone, 1st 20sq cm Yes Pain Scale: 0-10 Numeric Is Patient Pain Free? Yes Yes Yes WC - Nurse 3 - General Ulcer D/C NN Start: 10/06/20 11:34 Freq: Status: Active Protocol: Activity Type Activity Date Activity User E-Sign Co-Sign Detail Recorded Client Recorded Date Recorded By Document 10/06/20 12:20 [id number] 10/06/20 12:21 Document 10/13/20 11:12 DL [id number] 10/13/20 11:20 DL Document 10/20/20 10:56 MW [id number] 10/20/20 10:57 MW 10/06/20 10/13/20 10/20/20 12:20 11:12 10:56 Wound Care Nurse 3 5-right 1st metatarsal -Ulcer Cleansing Rinsed/ Rinsed/ Rinsed/ Irrigated with Irrigated with Irrigated with Saline Saline Saline -Foul Odor after Cleansing No No No -Negative Pressure Wound Therapy N/A -Primary Dressing Applied C Hydrogel ($) -Other Dressing hydrogel c.hydrogel -Primary Dressing Covered/Secured with Dry Gauze & Dry Gauze & Dry Gauze & Roll Gauze, Roll Gauze, Roll Gauze, Secured with Secured with Secured with Tape Tape Tape #4 left medial hallux -Ulcer Cleansing Rinsed/ Rinsed/ Rinsed/ Irrigated with Irrigated with Irrigated with Saline Saline Saline -Foul Odor after Cleansing No No No -Negative Pressure Wound Therapy N/A -Primary Dressing Applied C Hydrogel ($) -Other Dressing hydrogel c.hydrogel -Primary Dressing Covered/Secured with Dry Gauze & Dry Gauze & Dry Gauze & Roll Gauze, Roll Gauze, Roll Gauze, Secured with Secured with Secured with Tape Tape Tape Treatment Response Procedure Procedure Tolerated Well Tolerated Well Pain Scale: 0-10 Numeric Is Patient Pain Free? Yes Yes Yes Teaching: Wound Center Dressing Your Wound -Person Taught Patient -Teaching Method Discussion, Demonstration -Response to teaching Verbalize understanding WC - Visit Discharge Discharge Condition Stable Stable Stable Ambulatory Status Ambulatory Ambulatory Ambulatory Transportation Private Auto Private Auto Private Auto Accompanied by Medication Reconcilliation completed & Yes No provided to patient/care provider Clinical Summary of Care Provided Yes Yes Wound debrided: Plantar first metatarsal head Laterality: Right Type of Debridement: Excisional debridement Anesthesia Used: 4% Lidocaine Solution Depth: to bone (Debrided to subcu) Percentage of wound debrided: 100 Instrument Used: 3mm curette Tissue Removed: includes fibrous, devitalized, biofilm, callus and slough tissue Severity: Fat Layer Exposed Amount of bleeding with debridement: Mild Bleeding Controlled with: Pressure Patient tolerated procedure: Patient tolerated procedure well Additional Wound Wound debrided: Plantar first metatarsal head Laterality: Left Type of Debridement: Excisional debridement Anesthesia Used: 4% Lidocaine Solution Depth: in the subcutaneous layer Percentage of wound debrided: 100 Instrument Used: 3mm curette Tissue Removed: Includes fibrous, devitalized, biofilm, callus and slough tissue Severity: Fat Layer Exposed Amount of bleeding with debridement: Mild Bleeding Controlled with: Pressure Patient tolerated procedure: Patient tolerated procedure well Assessment/Plan Assessment/Plan (1) Pressure ulcer of left foot, stage 4: CODE(S): L89.894 - Pressure ulcer of other site, stage 4 (2) Pressure ulcer of right foot, stage 4: CODE(S): L89.894 - Pressure ulcer of other site, stage 4 (3) Osteomyelitis: CODE(S): M86.9 - Osteomyelitis, unspecified QUALIFIERS: Osteomyelitis type: other acute Osteomyelitis location: foot Laterality: left Qualified Code(s): M86.172 - Other acute osteomyelitis, left ankle and foot (4) Left foot pain: CODE(S): M79.672 - Pain in left foot (5) Fat pad atrophy of foot: CODE(S): L90.9 - Atrophic disorder of skin, unspecified (6) PAD (peripheral artery disease): CODE(S): I73.9 - Peripheral vascular disease, unspecified (7) Steroid long-term use: (8) Delayed wound healing: CODE(S): T14.8XXD - Other injury of unspecified body region, subsequent encounter (9) Corns and callosities: CODE(S): L84 - Corns and callosities (10) Rheumatoid arthritis: CODE(S): M06.9 - Rheumatoid arthritis, unspecified QUALIFIERS: Rheumatoid arthritis location: foot Rheumatoid factor presence: unspecified presence Laterality: bilateral Qualified Code(s): M06.9 - Rheumatoid arthritis, unspecified (11) Pain in right foot: CODE(S): M79.671 - Pain in right foot (12) Left foot infection: CODE(S): L08.9 - Local infection of the skin and subcutaneous tissue, unspecified PLAN: Patient seen and examined. Ulceration to right plantar first metatarsal head remained stable. On the left foot noted red spot to the fifth metatarsal head concerning for preulcerative area remains but is improved. Offloading pad to her slippers was further modified to help offload this area. Wound plantar first metatarsal head left foot noted to have increasing drainage. Patient was started on doxycycline which was sent to patient's pharmacy. Patient also to follow up with Dr Clements on november 04. Patient also relates recent hospital admission. Awaiting due to a heart attack. Patient says she is feeling better now. Patient will need to get cardiac clearance prior to resuming HBO. Awaiting note from craft center director. Kylah's ulcers were evaluated and debrided today at the wound center after verbal consent obtained. Plantar first metatarsal wounds bilaterally has easily bone exposed. Left foot xray 05/29/2020 did not show osteomyelitis. Given clinical appearance MRI was ordered. MRI 06/25/20 showed evidence of osteomyelitis to left diaphysis of 1st metatarsal. Cultures obtained 06/30/2020 did not show any growth. Possible previous antibiotics patient was on have cleared up skin infection but bone infection may remain. Dr Clements in Infectious disease saw patient and prescribed cephalexin and doxycycline for treatment. Patient has since finished these. Culture obtained 09/15/2020 demonstrated Staphylococcus Lugdenensis and Corynebacterium species. Patient was started on doxycycline. Patient relates she only has a couple days left of the antibiotic. Patient was given a refill for doxycycline sent to her pharmacy. Further cultures obtained 10/13/2020 demonstrated Staphylococcus epididymis. discussed with patient to follow-up with Dr. Clements for possible need for another long-term course of IV antibiotics or oral antibiotics for this recurrent osteomyelitis. Patient will contact for further work-up. LEAS 06/30/20 showed moderate distal small vessel disease bilaterally at the digits. The left foot was noted to have biphasic pulses with CRUZ of 1.27 and TBI of 0.37. The left PT was noncompressible. The right foot PT and DP were noncompressible and TBI of 0.4 with triphasic and biphasic pulses. Patient had procedure with Dr Oseguera 07/21/20. Patient reports that the procedure went well. Dr. Oseguera has no further interventions planned at this time. The etiology of her ulcers appears to be from pressure at sites of metatarsal heads as there is significant fat pad atrophy. Discussed with the patient the importance of proper shoe gear with good padding to supplement lost fat pad. This is most likely due to her rheumatoid arthritis, chronic prednisone treatment may also have a role in the nonhealing of the ulcers. Discussed with the patient possibility of ordering custom inserts self-pay. Patient will consider. Offloading was discussed, patient relates that she has a surgical shoe with forefoot offloaded. Patient presents today and tennis shoes with offloading inserts noted to bilateral shoes. Recommend patient wear surgical shoe at this time. She was advised to try to avoid standing and being on her feet for long periods and to elevate her feet as much as possible. Patient slippers which she wears well indoors have also been adjusted with an offloading insert bilaterally. Patient relates that these been working well for her. Discussed importance of smoking cessation, blood sugar control, weight management, offloading, proper nutrition, and hygiene to optimize healing potential. Discussed that her chronic steroid use for her RA can impact wound healing as well as impact her body's ability to mount an immune response. Also her vascular disease may also be playing into her poor ability to heal. There is suspicion that osteomyelitis infection may still remain given factors that may be impeding wound healing as well as chronic bone exposure to bilateral 1st metatarsals now through the wounds. Upon previous discussion it was noted that the patient did not wish to undergo bone debridement given the extent of osteomyelitis per MRI as well as her already established history of poor wound healing. It was decided that it was not worth the risk of potentially creating a larger wound that potentially more bacteria could then use to infect the wound. The remaining bone exposure puts patient at clinical osteomyelitis since I began seeing patient. There is no definitive need to repeat imaging at the end of antibiotic therapy per ID with Dr Clements. Patient completed 6 week course of cephalexin and doxycycline. Given new monitor drainage to wound will consider follow-up with Dr. Clements. Patient wounds are too small for skin substitute applications. Patient also noted to not to be diabetic but does have history of osteomyelitis so may potentially be a candidate for hyperbaric oxygen therapy. She has since finished her course of antibiotics per infectious disease to treat the osteomyelitis. We will discuss to see if patient might be a potential candidate under nondiabetic guidelines. This would include further work up with labs, imaging, and clearance consultation. If patient is approved for hyperbaric oxygen therapy our goals would be to heal her wounds to bilateral feet while continuing regular debridements, monitoring, offloading, and medical optimizing and monitoring. Patient to see Dr. Steinberg for HBO evaluation. This was given prior to patient's recent heart attack and hospital admission. Patient will need to get cardiac clearance prior to being approved for HBO. Encouraged protein rich diet and protein supplements. Advised to call with questions or concerns. All questions answered. Continue wound care to foot ulcerations daily. Follow-up in 1 week. This note was generated with [employer] dictation software. It may contain incorrect words, spelling, and punctuation that were not noted in checking the note before signing.
[2020-10-27 10:11] VITALS: BP 135/69; PULSE 74; RESP 16; TEMP 36.3; BMI 18.6
--- NOTE | 2020-10-27 10:51 | PCM.WC.PN ---
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 She has been receiving treatment to this area for the last [address] Poe has attempted to debride and close it surgically with sutures but it reopened and it hasn't healed. She has a history of ulcerations underneath her big toe on both feet. 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 Patient has had a recent culture on 05/11/20, positive for Staphylococcus lugendenosis. Another culture was taken which demonstrated staph epididymis. With most recent culture taken 07/01/2020 with no growth seen. She has previously demonstrated an apparent allergy to collagen hydrogel. The patient has had vascular studies, without evidence of significant superficial vein incompetence in the left lower extremity in 2017. Her noninvasive lower extremity arterial study reveals normal ankle?brachial indices bilaterally in 2017. New studies on 06/30/20 showed moderate distal small vessel disease bilaterally at the digits with some non compressible vessels. Patient saw her vascular surgeon, Dr Oseguera, who did intervention on the patient on 07/21/20. Dr. Oseguera has no further interventions planned at this time. She had MRI on 06/25/20 which showed osteomyelitis to left 1st metatarsal. Patient saw Dr Clements who started her on cephalexin and doxycycline to treat her osteomyelitis. The patient is noted to be on prednisone and methotrexate for her rheumatoid arthritis. These are acknowledged to be possible inhibitors to wound healing. Patient noted to have painful feet due to her rheumatoid arthritis. Patient had callus to right plantar first MPJ with noted underlying ulceration noted. Patient has had wound here in the past. Patient relates that she goes to special shoe store to get offloading insert added to her shoes to help prevent callus buildup. Patient relates addition of pads to her slippers of also been helpful. Progress of Wound: Stable Subjective Subjective Patient seen and examined resting comfortably. Patient denies any new pedal complaints. Patient denies any nausea, fever, chills, chest pain, shortness of breath, cough, streaking, purulence, vomiting. Objective Data Objective Data Vital Signs: Vital Signs Temp Pulse Resp BP 97.3 F L 74 16 135/69 H 10/27/20 10:11 10/27/20 10:11 10/27/20 10:11 10/27/20 10:11 Oxygen Delivery Method Room Air Weight: 46.266 kg Body Mass Index (BMI) 18.6 Lab / Micro Data Micro: Microbiology 10/13/20 11:05 Bone - Left Foot Gram Stain - Final 10/13/20 11:05 Bone - Left Foot Wound Culture - Final Staphylococcus epidermidis 10/13/20 11:05 Bone - Left Foot Anaerobic Culture - Final No anaerobic bacteria isolated. Physical Exam Narrative Const alert and no apparent distress General Appearance: cooperative and comfortable Lymph Lymphatic: no lymphedema noted Resp normal respiratory effort Effort and Inspection: able to speak in complete sentences Extremity no calf tenderness, negative yasmine and baker sign lower extremity edema General Extremity: tenderness to palpation palpable metatarsal heads. There is Significant fat pad atrophy noted with easily palpable metatarsal heads 1 through 5 bilaterally. Negative for clubbing or cyanosis or ecchymosis or erythema Vasc Peripheral Pulses: posterior tibial pulses absent and dorsalis pedis pulses present but diminished, normal capillary refill, no acute ischemic skin changes noted, cool temperature Skin General Skin Exam: dry flaky atrophic skin to entire bilateral lower extremities, absent hair growth noted; Negative for ecchymosis, eschar, pallor, rashes Wound Narrative: ulcers noted to plantar first metatarsal head bilaterally No malodor, erythema, purulence, streaking, fluctuation, crepitus. Skin is atrophic and hairless. Granular base. Wounds probe to bone bilaterally. Serosanguineous drainage noted to bilateral wounds with left worse than right. There is significant amount of fat pad atrophy noted to bilateral feet secondary to patient's rheumatoid arthritis. There is noted callus buildup within the ulceration site with and overlying the wounds. Red irritated area noted to plantar lateral fifth metatarsal head on the left-hand side remains. This is improved Callus buildup noted to ulceration sites bilateral plantar first metatarsal head. There is also callus buildup noted to left foot plantar metatarsal heads 3 and 4 Neuro Gait (Neuro): heel to toe Sensory Exam: extremities light-touch: Intact MSK Motor Exam: strength 5/5 throughout, ROM to foot and ankle joints within normal limits Psych Appearance: appropriate Attitude: calm Debridement Note Debridement Note Post-Debridement Measurements and Additional Note: Post-Debridement Measurements/Treatment WC - Nurse 1 - General Ulcer Assessment Start: 10/06/20 11:34 Freq: Status: Active Protocol: [email or web address].LOWEXT Activity Type Activity Date Activity User E-Sign Co-Sign Detail Recorded Client Recorded Date Recorded By Document 10/06/20 11:34 MW [id number] 10/06/20 11:43 MW Document 10/13/20 10:10 DL [id number] 10/13/20 10:23 DL Document 10/20/20 10:30 DL [id number] 10/20/20 10:36 DL Document 10/27/20 10:11 BMF [id number] 10/27/20 10:23 BMF 10/06/20 10/13/20 10/20/20 11:34 10:10 10:30 - Today's Visit Information Type of service Follow-up Visit Follow-up Visit Follow-up Visit (Physician/INFORMATION ASSOC (Physician/INFORMATION ASSOC (Physician/INFORMATION ASSOC ) ) ) Arrival Mode Ambulatory Cane Ambulatory Transfer Assistance None Stretcher None Accompanied by Patient Identification Verified (Name & Yes Yes ) Patient Requires Transmission-Based No No No Precautions Safety Precautions NA Height and Weight Body Mass Index (BMI) 18.6 18.6 18.6 BMI Classification Normal Normal Normal Vital Signs Temperature (97.8 F-99.1 F) 97.6 F L 97.8 F 99.3 F H Temperature Source Temporal Temporal Temporal Pulse Rate (60-100) 72 66 72 Pulse Location Monitor Monitor Monitor Respiratory Rate (12-18) 16 18 18 Respiratory rate source Observation Observation Observation Oxygen Delivery Method Room Air Blood Pressure (90/60-120/80) 129/33 H 136/48 H 145/78 H Blood Pressure Mean (mm Hg) 65 77 100 Source Monitor Monitor Monitor Position Sitting Blood Pressure Location Left Arm History Since Last Visit- (Skip if this is Patient's initial visit) Have you changed medications since your Yes No No last visit? Any new allergies or adverse reactions No No No Had a fall/change in ADL's that may No No No increase risk of falls Signs or symptoms of abuse and/or No No No neglect since last visit Have you been in the hospital since your Yes No No last visit? Has dressing in place as prescribed Yes Yes Yes Has compression in place as prescribed N/A Yes Has offloadiing in place as prescribed N/A Yes Yes Experienced any changes in pain level or No No No management Left Footwear Regular Shoe Custom Shoe Right Footwear Regular Shoe Custom Shoe Pain Scale: 0-10 Numeric Is Patient Pain Free? Yes Yes Yes 10/27/20 10:11 WC - Today's Visit Information Type of service Follow-up Visit (Physician/INFORMATION [facility]OC ) Arrival Mode Ambulatory Transfer Assistance None Accompanied by Patient Identification Verified (Name & Yes ) Patient Requires Transmission-Based No Precautions Safety Precautions Height and Weight Body Mass Index (BMI) 18.6 BMI Classification Normal Vital Signs Temperature (97.8 F-99.1 F) 97.3 F L Temperature Source Temporal Pulse Rate (60-100) 74 Pulse Location Monitor Respiratory Rate (12-18) 16 Respiratory rate source Observation Oxygen Delivery Method Room Air Blood Pressure (90/60-120/80) 135/69 H Blood Pressure Mean (mm Hg) 91 Source Monitor Position Sitting Blood Pressure Location Right Arm History Since Last Visit- (Skip if this is Patient's initial visit) Have you changed medications since your No last visit? Any new allergies or adverse reactions No Had a fall/change in ADL's that may No increase risk of falls Signs or symptoms of abuse and/or No neglect since last visit Have you been in the hospital since your No last visit? Has dressing in place as prescribed Yes Has compression in place as prescribed N/A Has offloadiing in place as prescribed Yes Experienced any changes in pain level or No management Left Footwear Surgical Shoe with pressure relief insole Right Footwear Regular Shoe Pain Scale: 0-10 Numeric Is Patient Pain Free? Yes - Nurse 1 - General Ulcer Measurement Start: 10/06/20 11:34 Freq: Status: Active Protocol: Activity Type Activity Date Activity User E-Sign Co-Sign Detail Recorded Client Recorded Date Recorded By Document 10/06/20 11:34 MW [id number] 10/06/20 11:43 MW Document 10/13/20 10:10 DL [id number] 10/13/20 10:23 DL Document 10/20/20 10:30 DL [id number] 10/20/20 10:36 DL Document 10/27/20 10:11 BMF [id number] 10/27/20 10:23 [facility] 10/06/20 10/13/20 10/20/20 11:34 10:10 10:30 Wound Center Nurse 1 5-right 1st metatarsal -Combined with other wound No -Current Size (cm) - Length 0.1 0.1 0.1 -Current Size (cm) - Width 0.1 0.1 0.1 -Current Size (cm) - Depth 0.1 0.1 0.1 -Total Square Cm 0.01 0.01 0.01 -Photo Taken No No No -Tunneling No -Undermining/Tunneling No -Circular Undermining No -Exudate Amt None Present None Present None Present -Wound Margin Flat & Intact Thickened Thickened -Granulation Amt None Present (0 Small (1-33%) Large (67-100%) %) -Granulation Quality N/A [place] Pale -Slough/Fibrin Yes -Necrosis Amt Large (67-100%) Small (1-33%) None Present (0 %) -Necrotic Tissue Type Adherent Slough Adherent Slough -Structure Exposed N/A N/A N/A -Texture (Анна-wound Skin Appearance) Assessed,Callus Callus,Scarring Callus -Moisture (Анна-wound Skin Appearance) No Abnormality, Dry/Scaly Dry/Scaly Assessed -Color (Анна-wound Skin Appearance) No Abnormality, Hemosiderin No Abnormality Assessed Staining -Temperature (Анна-wound Skin No Abnormality No Abnormality No Abnormality Appearance) (Pt Warm) (Pt Warm) (Pt Warm) -Tenderness on Palpation (Анна-wound Yes No No Skin Appearance) -Ulcer Cleansing Rinsed/ Wound Cleanser Wound Cleanser Irrigated with Saline -Foul Odor after Cleansing No No No -Anesthetic Used 5% Lidocaine 4% Lidocaine 4% Lidocaine Gel Solution Solution #4 left medial hallux -Combined with other wound No -Current Size (cm) - Length 0.1 0.2 0.2 -Current Size (cm) - Width 0.1 0.2 0.2 -Current Size (cm) - Depth 0.1 0.2 0.3 -Total Square Cm 0.01 0.04 0.04 -Photo Taken No No No -Epithelialization None Present -Tunneling -Undermining/Tunneling No -Undermining/Tunneling Starts (O'clock ) -Undermining/Tunneling Ends (O'clock) -Maximum Distance (cm) -Maximum Distance #2 (cm) 0.2 0.3 -Circular Undermining No Yes Yes -Exudate Amt Small Small Small -Exudate Type Purulent Yellow/Green Yellow/Green -Wound Margin Flat & Intact Thickened Thickened -Granulation Amt None Present (0 Small (1-33%) None Present (0 %) %) -Granulation Quality N/A -Slough/Fibrin Yes -Necrosis Amt Large (67-100%) Small (1-33%) Small (1-33%) -Necrotic Tissue Type Adherent Slough Adherent Slough Adherent Slough -Structure Exposed N/A N/A Bone -Texture (Анна-wound Skin Appearance) Assessed Callus,Scarring Callus -Moisture (Анна-wound Skin Appearance) No Abnormality, Dry/Scaly Dry/Scaly Assessed -Color (Анна-wound Skin Appearance) No Abnormality, Hemosiderin No Abnormality Assessed Staining -Temperature (Анна-wound Skin No Abnormality No Abnormality Appearance) (Pt Warm) (Pt Warm) -Tenderness on Palpation (Анна-wound Yes No No Skin Appearance) -Ulcer Cleansing Rinsed/ Rinsed/ Rinsed/ Irrigated with Irrigated with Irrigated with Saline Saline Saline -Foul Odor after Cleansing No No -Anesthetic Used 5% Lidocaine 4% Lidocaine 4% Lidocaine Gel Solution Solution Lower Limb Edema Present No Right Calf (cm) Right Ankle (cm) Left Calf (cm) Left Ankle (cm) 10/27/20 10:11 Wound Center Nurse 1 5-right 1st metatarsal -Combined with other wound No -Current Size (cm) - Length 0.1 -Current Size (cm) - Width 0.1 -Current Size (cm) - Depth 0.1 -Total Square Cm 0.01 -Photo Taken No -Tunneling No -Undermining/Tunneling No -Circular Undermining No -Exudate Amt None Present -Wound Margin -Granulation Amt None Present (0 %) -Granulation Quality -Slough/Fibrin Yes -Necrosis Amt Large (67-100%) -Necrotic Tissue Type Eschar -Structure Exposed -Texture (Анна-wound Skin Appearance) Assessed,Callus ,Scarring -Moisture (Анна-wound Skin Appearance) Assessed,Dry/ Scaly -Color (Анна-wound Skin Appearance) Assessed -Temperature (Анна-wound Skin No Abnormality Appearance) (Pt Warm) -Tenderness on Palpation (Анна-wound No Skin Appearance) -Ulcer Cleansing Rinsed/ Irrigated with Saline -Foul Odor after Cleansing No -Anesthetic Used 5% Lidocaine Gel #4 left medial hallux -Combined with other wound No -Current Size (cm) - Length 0.1 -Current Size (cm) - Width 0.1 -Current Size (cm) - Depth 0.4 -Total Square Cm 0.01 -Photo Taken No -Epithelialization None Present -Tunneling No -Undermining/Tunneling Yes -Undermining/Tunneling Starts (O'clock 12 ) -Undermining/Tunneling Ends (O'clock) 12 -Maximum Distance (cm) 0.3 -Maximum Distance #2 (cm) -Circular Undermining Yes -Exudate Amt Small -Exudate Type Serous -Wound Margin Distinct, Outline Attached -Granulation Amt Large (67-100%) -Granulation Quality [place] -Slough/Fibrin -Necrosis Amt -Necrotic Tissue Type -Structure Exposed -Texture (Анна-wound Skin Appearance) Assessed,Callus ,Scarring -Moisture (Анна-wound Skin Appearance) Assessed,Dry/ Scaly -Color (Анна-wound Skin Appearance) Assessed -Temperature (Анна-wound Skin No Abnormality Appearance) (Pt Warm) -Tenderness on Palpation (Анна-wound Yes Skin Appearance) -Ulcer Cleansing Rinsed/ Irrigated with Saline -Foul Odor after Cleansing No -Anesthetic Used 5% Lidocaine Gel Lower Limb Edema Present Yes Right Calf (cm) 30.9 Right Ankle (cm) 17.2 Left Calf (cm) 30.5 Left Ankle (cm) 16.6 WC - Nurse 2 - General Ulcer CM Notes Start: 10/06/20 11:34 Freq: Status: Active Protocol: Activity Type Activity Date Activity User E-Sign Co-Sign Detail Recorded Client Recorded Date Recorded By Document 10/06/20 12:09 JF [id number] 10/06/20 12:19 JF Document 10/13/20 10:56 [id number] 10/13/20 11:09 JF Document 10/20/20 10:48 MW [id number] 10/20/20 10:56 MW Document 10/27/20 10:41 [id number] 10/27/20 10:45 JF 10/06/20 10/13/20 10/20/20 12:09 10:56 10:48 Wound Center Nurse 2 5-right 1st metatarsal -Time 12:10 10:57 10:49 -Correct Patient Yes Yes Yes -Correct Side, Site, Position Yes Yes Yes -Correct Procedure Yes Yes Yes -Procedure Performed Yes Yes Yes -Type of Procedure Debridement Debridement Debridement -Clinical Debridement Subcutaneous Subcutaneous Subcutaneous -Tissue Removed Subcutaneous Subcutaneous Subcutaneous -Post Debridement (cm) - Length 0.2 0.1 0.2 -Post Debridement (cm) - Width 0.2 1 0.3 -Post Debridement (cm) - Depth 0.4 0.4 0.3 -Total Square (Post) (cm) 0.04 0.1 0.06 -Area of Debridement (cm) - Length 0.2 0.1 0.2 -Area of Debridement (cm) - Width 0.2 0.1 0.3 -Total Square (Area) (cm) 0.04 0.01 0.06 -Tunneling No No No -Undermining/Tunneling No No No -Circular Undermining No No No -Wound/Ulcer Outcome Not Healed Not Healed Not Healed -Ulcer Cleansing Rinsed/ Rinsed/ Rinsed/ Irrigated with Irrigated with Irrigated with Saline Saline Saline -Foul Odor after Cleansing No No No -Bioengineered Tissue No No No -Bleeding Controlled with Pressure Pressure Pressure -Offloading No No No -Treatment Response Procedure Procedure Procedure Tolerated Well Tolerated Well Tolerated Well -Debridement - Subq, 1st 20sq cm Yes Yes Yes #4 left medial hallux -Time 12:10 10:58 10:51 -Correct Patient Yes Yes Yes -Correct Side, Site, Position Yes Yes Yes -Correct Procedure Yes Yes Yes -Procedure Performed Yes Yes Yes -Type of Procedure Debridement Incision & Debridement Drainage -Clinical Debridement Subcutaneous Bone Subcutaneous -Tissue Removed Subcutaneous Fascia,Tendon Subcutaneous -Post Debridement (cm) - Length 0.5 0.3 0.3 -Post Debridement (cm) - Width 0.5 0.1 0.4 -Post Debridement (cm) - Depth 0.4 0.3 0.2 -Total Square (Post) (cm) 0.25 0.03 0.12 -Area of Debridement (cm) - Length 0.5 0.3 0.3 -Area of Debridement (cm) - Width 0.5 0.1 0.4 -Total Square (Area) (cm) 0.25 0.03 0.12 -Tunneling No No No -Undermining/Tunneling No No No -Circular Undermining No No No -Wound/Ulcer Outcome Not Healed Not Healed Not Healed -Ulcer Cleansing Rinsed/ Rinsed/ Rinsed/ Irrigated with Irrigated with Irrigated with Saline Saline Saline -Foul Odor after Cleansing Yes, Due to No No Product Use -Bioengineered Tissue No No No -Bleeding Controlled with Pressure Pressure Pressure -Offloading No No No -Treatment Response Procedure Procedure Procedure Tolerated Well Tolerated Well Tolerated Well -Debridement - Subq, 1st 20sq cm No No -Debridement - Bone, 1st 20sq cm Yes Pain Scale: 0-10 Numeric Is Patient Pain Free? Yes Yes Yes 10/27/20 10:41 Wound Center Nurse 2 5-right 1st metatarsal -Time 10:42 -Correct Patient Yes -Correct Side, Site, Position Yes -Correct Procedure Yes -Procedure Performed Yes -Type of Procedure Debridement -Clinical Debridement Subcutaneous -Tissue Removed Subcutaneous -Post Debridement (cm) - Length 0.2 -Post Debridement (cm) - Width 0.2 -Post Debridement (cm) - Depth 0.2 -Total Square (Post) (cm) 0.04 -Area of Debridement (cm) - Length 0.2 -Area of Debridement (cm) - Width 0.2 -Total Square (Area) (cm) 0.04 -Tunneling No -Undermining/Tunneling No -Circular Undermining No -Wound/Ulcer Outcome Not Healed -Ulcer Cleansing Rinsed/ Irrigated with Saline -Foul Odor after Cleansing No -Bioengineered Tissue No -Bleeding Controlled with Pressure -Offloading No -Treatment Response Procedure Tolerated Well -Debridement - Subq, 1st 20sq cm Yes #4 left medial hallux -Time 10:42 -Correct Patient Yes -Correct Side, Site, Position Yes -Correct Procedure Yes -Procedure Performed Yes -Type of Procedure Debridement -Clinical Debridement Subcutaneous -Tissue Removed Subcutaneous -Post Debridement (cm) - Length 0.3 -Post Debridement (cm) - Width 0.4 -Post Debridement (cm) - Depth 0.2 -Total Square (Post) (cm) 0.12 -Area of Debridement (cm) - Length 0.3 -Area of Debridement (cm) - Width 0.4 -Total Square (Area) (cm) 0.12 -Tunneling No -Undermining/Tunneling No -Circular Undermining No -Wound/Ulcer Outcome Not Healed -Ulcer Cleansing Rinsed/ Irrigated with Saline -Foul Odor after Cleansing No -Bioengineered Tissue No -Bleeding Controlled with Pressure -Offloading No -Treatment Response Procedure Tolerated Well -Debridement - Subq, 1st 20sq cm No -Debridement - Bone, 1st 20sq cm Pain Scale: 0-10 Numeric Is Patient Pain Free? Yes WC - Nurse 3 - General Ulcer D/C NN Start: 10/06/20 11:34 Freq: Status: Active Protocol: Activity Type Activity Date Activity User E-Sign Co-Sign Detail Recorded Client Recorded Date Recorded By Document 10/06/20 12:20 JF [id number] 10/06/20 12:21 JF Document 10/13/20 11:12 DL [id number] 10/13/20 11:20 DL Document 10/20/20 10:56 MW [id number] 10/20/20 10:57 MW 10/06/20 10/13/20 10/20/20 12:20 11:12 10:56 Wound Care Nurse 3 5-right 1st metatarsal -Ulcer Cleansing Rinsed/ Rinsed/ Rinsed/ Irrigated with Irrigated with Irrigated with Saline Saline Saline -Foul Odor after Cleansing No No No -Negative Pressure Wound Therapy N/A -Primary Dressing Applied C Hydrogel ($) -Other Dressing hydrogel c.hydrogel -Primary Dressing Covered/Secured with Dry Gauze & Dry Gauze & Dry Gauze & Roll Gauze, Roll Gauze, Roll Gauze, Secured with Secured with Secured with Tape Tape Tape #4 left medial hallux -Ulcer Cleansing Rinsed/ Rinsed/ Rinsed/ Irrigated with Irrigated with Irrigated with Saline Saline Saline -Foul Odor after Cleansing No No No -Negative Pressure Wound Therapy N/A -Primary Dressing Applied C Hydrogel ($) -Other Dressing hydrogel c.hydrogel -Primary Dressing Covered/Secured with Dry Gauze & Dry Gauze & Dry Gauze & Roll Gauze, Roll Gauze, Roll Gauze, Secured with Secured with Secured with Tape Tape Tape Treatment Response Procedure Procedure Tolerated Well Tolerated Well Pain Scale: 0-10 Numeric Is Patient Pain Free? Yes Yes Yes Teaching: Wound Center Dressing Your Wound -Person Taught Patient -Teaching Method Discussion, Demonstration -Response to teaching Verbalize understanding WC - Visit Discharge Discharge Condition Stable Stable Stable Ambulatory Status Ambulatory Ambulatory Ambulatory Transportation Private Auto Private Auto Private Auto Accompanied by Medication Reconcilliation completed & Yes No provided to patient/care provider Clinical Summary of Care Provided Yes Yes Wound debrided: Plantar first metatarsal head Laterality: Right Type of Debridement: Excisional debridement Anesthesia Used: 4% Lidocaine Solution Depth: to bone Percentage of wound debrided: 100 Instrument Used: 3mm curette Tissue Removed: includes fibrous, devitalized, biofilm, callus and slough tissue Severity: Necrosis of Bone Amount of bleeding with debridement: Mild Bleeding Controlled with: Pressure Patient tolerated procedure: Patient tolerated procedure well Additional Wound Wound debrided: Plantar first metatarsal head Laterality: Left Type of Debridement: Excisional debridement Anesthesia Used: 4% Lidocaine Solution Depth: to bone Percentage of wound debrided: 100 Instrument Used: 3mm curette Tissue Removed: Includes fibrous, devitalized, biofilm, callus and slough tissue Severity: Necrosis of Bone Amount of bleeding with debridement: Mild Bleeding Controlled with: Pressure Patient tolerated procedure: Patient tolerated procedure well Assessment/Plan Assessment/Plan (1) Pressure ulcer of left foot, stage 4: CODE(S): L89.894 - Pressure ulcer of other site, stage 4 (2) Pressure ulcer of right foot, stage 4: CODE(S): L89.894 - Pressure ulcer of other site, stage 4 (3) Osteomyelitis: CODE(S): M86.9 - Osteomyelitis, unspecified QUALIFIERS: Osteomyelitis type: other acute Osteomyelitis location: foot Laterality: left Qualified Code(s): M86.172 - Other acute osteomyelitis, left ankle and foot (4) Left foot pain: CODE(S): M79.672 - Pain in left foot (5) Fat pad atrophy of foot: CODE(S): L90.9 - Atrophic disorder of skin, unspecified (6) PAD (peripheral artery disease): CODE(S): I73.9 - Peripheral vascular disease, unspecified (7) Steroid long-term use: (8) Delayed wound healing: CODE(S): T14.8XXD - Other injury of unspecified body region, subsequent encounter (9) Corns and callosities: CODE(S): L84 - Corns and callosities (10) Rheumatoid arthritis: CODE(S): M06.9 - Rheumatoid arthritis, unspecified QUALIFIERS: Rheumatoid arthritis location: foot Rheumatoid factor presence: unspecified presence Laterality: bilateral Qualified Code(s): M06.9 - Rheumatoid arthritis, unspecified (11) Pain in right foot: CODE(S): M79.671 - Pain in right foot (12) Left foot infection: CODE(S): L08.9 - Local infection of the skin and subcutaneous tissue, unspecified PLAN: Patient seen and examined. Ulceration to right plantar first metatarsal head remained stable. On the left foot noted red spot to the fifth metatarsal head concerning for preulcerative area remains but is improved. Is noted this is the first time in weeks that the callus has not built-up to completely occlude the ulceration to the left of foot. Patient has no edema noted Patient was started on doxycycline which was sent to patient's pharmacy. Patient also to follow up with Dr Clements on november 04. She will also follow-up with week to allow her to save a trip and to both appointments on the same day. Patient also relates recent hospital admission. Awaiting due to a heart attack. Patient says she is feeling better now. Patient will need to get cardiac clearance prior to resuming HBO. Awaiting note from public safety dispatcher. Kylah's ulcers were evaluated and debrided today at the wound center after verbal consent obtained. Plantar first metatarsal wounds bilaterally has easily bone exposed. Left foot xray 05/29/2020 did not show osteomyelitis. Given clinical appearance MRI was ordered. MRI 06/25/20 showed evidence of osteomyelitis to left diaphysis of 1st metatarsal. Culture obtained 09/15/2020 demonstrated Staphylococcus Lugdenensis and Corynebacterium species. Patient was started on doxycycline. Patient relates she only has a couple days left of the antibiotic. Patient was given a refill for doxycycline sent to her pharmacy. Further cultures obtained 10/13/2020 demonstrated Staphylococcus epididymis. discussed with patient to follow-up with Dr. Clements for possible need for another long-term course of IV antibiotics or oral antibiotics for this recurrent osteomyelitis. Patient will contact for further work-up. LEAS 06/30/20 showed moderate distal small vessel disease bilaterally at the digits. The left foot was noted to have biphasic pulses with CRUZ of 1.27 and TBI of 0.37. The left PT was noncompressible. The right foot PT and DP were noncompressible and TBI of 0.4 with triphasic and biphasic pulses. Patient had procedure with Dr Oseguera 07/21/20. Patient reports that the procedure went well. Dr. Oseguera has no further interventions planned at this time. The etiology of her ulcers appears to be from pressure at sites of metatarsal heads as there is significant fat pad atrophy. Discussed with the patient the importance of proper shoe gear with good padding to supplement lost fat pad. This is most likely due to her rheumatoid arthritis, chronic prednisone treatment may also have a role in the nonhealing of the ulcers. Discussed with the patient possibility of ordering custom inserts self-pay. Patient will consider. Offloading was discussed, patient relates that she has a surgical shoe with forefoot offloaded. Patient also aware tennis shoes with offloading inserts noted to bilateral shoes. Recommend patient wear surgical shoe at this time. She was advised to try to avoid standing and being on her feet for long periods and to elevate her feet as much as possible. Patient slippers which she wears well indoors have also been adjusted with an offloading insert bilaterally. Patient relates that these been working well for her. Discussed importance of smoking cessation, blood sugar control, weight management, offloading, proper nutrition, and hygiene to optimize healing potential. Discussed that her chronic steroid use for her RA can impact wound healing as well as impact her body's ability to mount an immune response. Also her vascular disease may also be playing into her poor ability to heal. There is suspicion that osteomyelitis infection may still remain given factors that may be impeding wound healing as well as chronic bone exposure to bilateral 1st metatarsals now through the wounds. Upon previous discussion it was noted that the patient did not wish to undergo bone debridement given the extent of osteomyelitis per MRI as well as her already established history of poor wound healing. It was decided that it was not worth the risk of potentially creating a larger wound that potentially more bacteria could then use to infect the wound. The remaining bone exposure puts patient at clinical osteomyelitis since I began seeing patient. There is no definitive need to repeat imaging at the end of antibiotic therapy per ID with Dr Clements. Patient completed 6 week course of cephalexin and doxycycline. Given new monitor drainage to wound will consider follow-up with Dr. Clements. Patient wounds are too small for skin substitute applications. Patient also noted to not to be diabetic but does have history of osteomyelitis so may potentially be a candidate for hyperbaric oxygen therapy. She has since finished her course of antibiotics per infectious disease to treat the osteomyelitis. We will discuss to see if patient might be a potential candidate under nondiabetic guidelines. This would include further work up with labs, imaging, and clearance consultation. If patient is approved for hyperbaric oxygen therapy our goals would be to heal her wounds to bilateral feet while continuing regular debridements, monitoring, offloading, and medical optimizing and monitoring. Patient to see Dr. Steinbegr for HBO evaluation. This was given prior to patient's recent heart attack and hospital admission. Patient will need to get cardiac clearance prior to being approved for HBO. We are resending for these notes. Encouraged protein rich diet and protein supplements. Advised to call with questions or concerns. All questions answered. Continue wound care to foot ulcerations daily. Patient was given Tubigrip's for compression and edema control Follow-up in 1 week. This note was generated with [employer] dictation software. It may contain incorrect words, spelling, and punctuation that were not noted in checking the note before signing.
[2020-11-04 14:47] VITALS: BP 143/60; PULSE 72; RESP 16; TEMP 36.1; BMI 18.6
--- NOTE | 2020-11-04 16:05 | PCM.WC.PN ---
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 sub metatarsal head ulcer right History of Wound: Kylah is a 75-year-old female who was referred here for treatment of an ulcer at the base of her great toe at her metatarsal head from Dr. Poe, her finance associate. She has been receiving treatment to this area for the last [address] Poe has attempted to debride and close it surgically with sutures but it reopened and it hasn't healed. She has a history of ulcerations underneath her big toe on both feet. 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 Patient has had a recent culture on 05/11/20, positive for Staphylococcus lugendenosis. Another culture was taken which demonstrated staph epididymis. With most recent culture taken 07/01/2020 with no growth seen. She has previously demonstrated an apparent allergy to collagen hydrogel. The patient has had vascular studies, without evidence of significant superficial vein incompetence in the left lower extremity in 2017. Her noninvasive lower extremity arterial study reveals normal ankle?brachial indices bilaterally in 2017. New studies on 06/30/20 showed moderate distal small vessel disease bilaterally at the digits with some non compressible vessels. Patient saw her vascular surgeon, Dr Oseguera, who did intervention on the patient on 07/21/20. Dr. Oseguera has no further interventions planned at this time. She had MRI on 06/25/20 which showed osteomyelitis to left 1st metatarsal. Patient saw Dr Clements who started her on cephalexin and doxycycline to treat her osteomyelitis. She was seen again today and additional antibiotics were recommended. He denies fever, chill, nausea, vomiting, redness, odor. The patient is noted to be on prednisone and methotrexate for her rheumatoid arthritis. These are acknowledged to be possible inhibitors to wound healing. Patient noted to have painful feet due to her rheumatoid arthritis. Patient relates that she goes to special shoe store to get offloading insert added to her shoes to help prevent callus buildup. Patient relates addition of pads to her slippers for home use has helped. Progress of Wound: Stable Objective Data Objective Data Vital Signs: Vital Signs Temp Pulse Resp BP 97 F L 72 16 143/60 H 11/04/20 14:47 11/04/20 14:47 11/04/20 14:47 11/04/20 14:47 Oxygen Delivery Method Room Air Weight: 46.266 kg Body Mass Index (BMI) 18.6 Lab / Micro Data Micro: Microbiology 10/13/20 11:05 Bone - Left Foot Gram Stain - Final 10/13/20 11:05 Bone - Left Foot Wound Culture - Final Staphylococcus epidermidis 10/13/20 11:05 Bone - Left Foot Anaerobic Culture - Final No anaerobic bacteria isolated. Physical Exam Narrative Const alert and no apparent distress General Appearance: cooperative and comfortable Lymph Lymphatic: no lymphedema noted Resp normal respiratory effort Effort and Inspection: able to speak in complete sentences Extremity no calf tenderness, negative yasmine and baker sign lower extremity edema General Extremity: tenderness to palpation palpable metatarsal heads. There is Significant fat pad atrophy noted with easily palpable metatarsal heads 1 through 5 bilaterally. Negative for clubbing or cyanosis or ecchymosis or erythema Vasc Peripheral Pulses: posterior tibial pulses absent and dorsalis pedis pulses present but diminished, normal capillary refill, no acute ischemic skin changes noted, cool temperature Skin General Skin Exam: dry flaky atrophic skin to entire bilateral lower extremities, absent hair growth noted; Negative for ecchymosis, eschar, pallor, rashes Wound Narrative: ulcers noted to plantar first metatarsal head bilaterally and left sub central metatarsal head site also No malodor, erythema, purulence, streaking, fluctuation, crepitus. Skin is atrophic and hairless. Granular base. Wounds probe to bone bilaterally. Serosanguineous drainage noted to bilateral wounds with left worse than right. There is significant amount of fat pad atrophy noted to bilateral feet secondary to patient's rheumatoid arthritis. There is noted callus buildup within the ulceration site with and overlying the wounds. Peripheral callous noted to all ulcer sites Red irritated area noted to plantar lateral fifth metatarsal head on the left has resolved Neuro Gait (Neuro): heel to toe Sensory Exam: extremities light-touch: Intact MSK Motor Exam: strength 5/5 throughout, ROM to foot and ankle joints within normal limits Psych Appearance: appropriate Attitude: calm Debridement Note Debridement Note Post-Debridement Measurements and Additional Note: Post-Debridement Measurements/Treatment WC - Nurse 1 - General Ulcer Assessment Start: 10/06/20 11:34 Freq: Status: Active Protocol: WC.LOWEXT Activity Type Activity Date Activity User E-Sign Co-Sign Detail Recorded Client Recorded Date Recorded By Document 10/06/20 11:34 MW [id number] 10/06/20 11:43 MW Document 10/13/20 10:10 DL [id number] 10/13/20 10:23 DL Document 10/20/20 10:30 DL [id number] 10/20/20 10:36 DL Document 10/27/20 10:11 BMF [id number] 10/27/20 10:23 BMF Document 11/04/20 14:47 BMF [id number] 11/04/20 14:58 BMF 10/06/20 10/13/20 10/20/20 11:34 10:10 10:30 WC - Today's Visit Information Type of service Follow-up Visit Follow-up Visit Follow-up Visit (Physician/MANAGER COSMETICS (Physician/MANAGER COSMETICS (Physician/MANAGER COSMETICS ) ) ) Arrival Mode Ambulatory Cane Ambulatory Transfer Assistance None Stretcher None Accompanied by Patient Identification Verified (Name & Yes Yes ) Patient Requires Transmission-Based No No No Precautions Safety Precautions NA Height and Weight Body Mass Index (BMI) 18.6 18.6 18.6 BMI Classification Normal Normal Normal Vital Signs Temperature (97.8 F-99.1 F) 97.6 F L 97.8 F 99.3 F H Temperature Source Temporal Temporal Temporal Pulse Rate (60-100) 72 66 72 Pulse Location Monitor Monitor Monitor Respiratory Rate (12-18) 16 18 18 Respiratory rate source Observation Observation Observation Oxygen Delivery Method Room Air Blood Pressure (90/60-120/80) 129/33 H 136/48 H 145/78 H Blood Pressure Mean (mm Hg) 65 77 100 Source Monitor Monitor Monitor Position Sitting Blood Pressure Location Left Arm History Since Last Visit- (Skip if this is Patient's initial visit) Have you changed medications since your Yes No No last visit? Any new allergies or adverse reactions No No No Had a fall/change in ADL's that may No No No increase risk of falls Signs or symptoms of abuse and/or No No No neglect since last visit Have you been in the hospital since your Yes No No last visit? Has dressing in place as prescribed Yes Yes Yes Has compression in place as prescribed N/A Yes Has offloadiing in place as prescribed N/A Yes Yes Experienced any changes in pain level or No No No management Left Footwear Regular Shoe Custom Shoe Right Footwear Regular Shoe Custom Shoe Pain Scale: 0-10 Numeric Is Patient Pain Free? Yes Yes Yes 10/27/20 11/04/20 10:11 14:47 - Today's Visit Information Type of service Follow-up Visit Follow-up Visit (Physician/MANAGER COSMETICS (Physician/MANAGER COSMETICS ) ) Arrival Mode Ambulatory Ambulatory Transfer Assistance None None Accompanied by IN LOBBY Patient Identification Verified (Name & Yes Yes ) Patient Requires Transmission-Based No No Precautions Safety Precautions Height and Weight Body Mass Index (BMI) 18.6 18.6 BMI Classification Normal Normal Vital Signs Temperature (97.8 F-99.1 F) 97.3 F L 97 F L Temperature Source Temporal Temporal Pulse Rate (60-100) 74 72 Pulse Location Monitor Monitor Respiratory Rate (12-18) 16 16 Respiratory rate source Observation Observation Oxygen Delivery Method Room Air Room Air Blood Pressure (90/60-120/80) 135/69 H 143/60 H Blood Pressure Mean (mm Hg) 91 87 Source Monitor Monitor Position Sitting Sitting Blood Pressure Location Right Arm Right Arm History Since Last Visit- (Skip if this is Patient's initial visit) Have you changed medications since your No No last visit? Any new allergies or adverse reactions No No Had a fall/change in ADL's that may No No increase risk of falls Signs or symptoms of abuse and/or No No neglect since last visit Have you been in the hospital since your No No last visit? Has dressing in place as prescribed Yes Yes Has compression in place as prescribed N/A N/A Has offloadiing in place as prescribed Yes N/A Experienced any changes in pain level or No No management Left Footwear Surgical Shoe Regular Shoe with pressure relief insole Right Footwear Regular Shoe Regular Shoe Pain Scale: 0-10 Numeric Is Patient Pain Free? Yes Yes - Nurse 1 - General Ulcer Measurement Start: 10/06/20 11:34 Freq: Status: Active Protocol: Activity Type Activity Date Activity User E-Sign Co-Sign Detail Recorded Client Recorded Date Recorded By Document 10/06/20 11:34 MW [id number] 10/06/20 11:43 MW Document 10/13/20 10:10 DL [id number] 10/13/20 10:23 DL Document 10/20/20 10:30 [id number] 10/20/20 10:36 Document 10/27/20 10:11 [facility] [id number] 10/27/20 10:23 [facility] Document 11/04/20 14:47 [facility] [id number] 11/04/20 14:58 [facility] 10/06/20 10/13/20 10/20/20 11:34 10:10 10:30 Wound Center Nurse 1 5-right 1st metatarsal -Combined with other wound No -Current Size (cm) - Length 0.1 0.1 0.1 -Current Size (cm) - Width 0.1 0.1 0.1 -Current Size (cm) - Depth 0.1 0.1 0.1 -Total Square Cm 0.01 0.01 0.01 -Photo Taken No No No -Tunneling No -Undermining/Tunneling No -Circular Undermining No -Exudate Amt None Present None Present None Present -Wound Margin Flat & Intact Thickened Thickened -Granulation Amt None Present (0 Small (1-33%) Large (67-100%) %) -Granulation Quality N/A [place] Pale -Slough/Fibrin Yes -Necrosis Amt Large (67-100%) Small (1-33%) None Present (0 %) -Necrotic Tissue Type Adherent Slough Adherent Slough -Structure Exposed N/A N/A N/A -Texture (Анна-wound Skin Appearance) Assessed,Callus Callus,Scarring Callus -Moisture (Анна-wound Skin Appearance) No Abnormality, Dry/Scaly Dry/Scaly Assessed -Color (Анна-wound Skin Appearance) No Abnormality, Hemosiderin No Abnormality Assessed Staining -Temperature (Анна-wound Skin No Abnormality No Abnormality No Abnormality Appearance) (Pt Warm) (Pt Warm) (Pt Warm) -Tenderness on Palpation (Анна-wound Yes No No Skin Appearance) -Ulcer Cleansing Rinsed/ Wound Cleanser Wound Cleanser Irrigated with Saline -Foul Odor after Cleansing No No No -Anesthetic Used 5% Lidocaine 4% Lidocaine 4% Lidocaine Gel Solution Solution #4 left medial hallux -Combined with other wound No -Current Size (cm) - Length 0.1 0.2 0.2 -Current Size (cm) - Width 0.1 0.2 0.2 -Current Size (cm) - Depth 0.1 0.2 0.3 -Total Square Cm 0.01 0.04 0.04 -Photo Taken No No No -Epithelialization None Present -Tunneling -Undermining/Tunneling No -Undermining/Tunneling Starts (O'clock ) -Undermining/Tunneling Ends (O'clock) -Maximum Distance (cm) -Maximum Distance #2 (cm) 0.2 0.3 -Circular Undermining No Yes Yes -Exudate Amt Small Small Small -Exudate Type Purulent Yellow/Green Yellow/Green -Wound Margin Flat & Intact Thickened Thickened -Granulation Amt None Present (0 Small (1-33%) None Present (0 %) %) -Granulation Quality N/A -Slough/Fibrin Yes -Necrosis Amt Large (67-100%) Small (1-33%) Small (1-33%) -Necrotic Tissue Type Adherent Slough Adherent Slough Adherent Slough -Structure Exposed N/A N/A Bone -Texture (Анна-wound Skin Appearance) Assessed Callus,Scarring Callus -Moisture (Анна-wound Skin Appearance) No Abnormality, Dry/Scaly Dry/Scaly Assessed -Color (Анна-wound Skin Appearance) No Abnormality, Hemosiderin No Abnormality Assessed Staining -Temperature (Анна-wound Skin No Abnormality No Abnormality Appearance) (Pt Warm) (Pt Warm) -Tenderness on Palpation (Анна-wound Yes No No Skin Appearance) -Ulcer Cleansing Rinsed/ Rinsed/ Rinsed/ Irrigated with Irrigated with Irrigated with Saline Saline Saline -Foul Odor after Cleansing No No -Anesthetic Used 5% Lidocaine 4% Lidocaine 4% Lidocaine Gel Solution Solution Lower Limb Edema Present No Right Calf (cm) Right Ankle (cm) Left Calf (cm) Left Ankle (cm) 10/27/20 11/04/20 10:11 14:47 Wound Center Nurse 1 5-right 1st metatarsal -Combined with other wound No No -Current Size (cm) - Length 0.1 0.1 -Current Size (cm) - Width 0.1 0.1 -Current Size (cm) - Depth 0.1 0.1 -Total Square Cm 0.01 0.01 -Photo Taken No -Tunneling No -Undermining/Tunneling No -Circular Undermining No -Exudate Amt None Present None Present -Wound Margin Distinct, Outline Attached -Granulation Amt None Present (0 None Present (0 %) %) -Granulation Quality -Slough/Fibrin Yes Yes -Necrosis Amt Large (67-100%) Large (67-100%) -Necrotic Tissue Type Eschar Adherent Slough -Structure Exposed -Texture (Анна-wound Skin Appearance) Assessed,Callus Assessed,Callus ,Scarring ,Scarring -Moisture (Анна-wound Skin Appearance) Assessed,Dry/ Assessed,Dry/ Scaly Scaly -Color (Анна-wound Skin Appearance) Assessed Assessed -Temperature (Анна-wound Skin No Abnormality No Abnormality Appearance) (Pt Warm) (Pt Warm) -Tenderness on Palpation (Анна-wound No No Skin Appearance) -Ulcer Cleansing Rinsed/ Rinsed/ Irrigated with Irrigated with Saline Saline -Foul Odor after Cleansing No No -Anesthetic Used 5% Lidocaine 5% Lidocaine Gel Gel #4 left medial hallux -Combined with other wound No No -Current Size (cm) - Length 0.1 0.1 -Current Size (cm) - Width 0.1 0.2 -Current Size (cm) - Depth 0.4 0.3 -Total Square Cm 0.01 0.02 -Photo Taken No No -Epithelialization None Present None Present -Tunneling No No -Undermining/Tunneling Yes Yes -Undermining/Tunneling Starts (O'clock 12 12 ) -Undermining/Tunneling Ends (O'clock) 12 12 -Maximum Distance (cm) 0.3 -Maximum Distance #2 (cm) -Circular Undermining Yes Yes -Exudate Amt Small Small -Exudate Type Serous Serous -Wound Margin Distinct, Distinct, Outline Outline Attached Attached -Granulation Amt Large (67-100%) Large (67-100%) -Granulation Quality [place] -Slough/Fibrin No -Necrosis Amt None Present (0 %) -Necrotic Tissue Type -Structure Exposed -Texture (Анна-wound Skin Appearance) Assessed,Callus Assessed,Callus ,Scarring ,Scarring -Moisture (Анна-wound Skin Appearance) Assessed,Dry/ Assessed,Dry/ Scaly Scaly -Color (Анна-wound Skin Appearance) Assessed Assessed -Temperature (Анна-wound Skin No Abnormality No Abnormality Appearance) (Pt Warm) (Pt Warm) -Tenderness on Palpation (Анна-wound Yes No Skin Appearance) -Ulcer Cleansing Rinsed/ Rinsed/ Irrigated with Irrigated with Saline Saline -Foul Odor after Cleansing No Yes, Due to Product Use -Anesthetic Used 5% Lidocaine 5% Lidocaine Gel Gel Lower Limb Edema Present Yes Yes Right Calf (cm) 30.9 31.6 Right Ankle (cm) 17.2 17.1 Left Calf (cm) 30.5 30.5 Left Ankle (cm) 16.6 16.5 WC - Nurse 2 - General Ulcer CM Notes Start: 10/06/20 11:34 Freq: Status: Active Protocol: Activity Type Activity Date Activity User E-Sign Co-Sign Detail Recorded Client Recorded Date Recorded By Document 10/06/20 12:09 [id number] 10/06/20 12:19 Document 10/13/20 10:56 JF [id number] 10/13/20 11:09 JF Document 10/20/20 10:48 [id number] 10/20/20 10:56 MW Document 10/27/20 10:41 [id number] 10/27/20 10:45 JF Document 11/04/20 15:33 JF [id number] 11/04/20 15:47 10/06/20 10/13/20 10/20/20 12:09 10:56 10:48 Wound Center Nurse 2 6-left middle plantar foot -Time -Correct Patient -Correct Side, Site, Position -Correct Procedure -Procedure Performed -Type of Procedure -Clinical Debridement -Tissue Removed -Post Debridement (cm) - Length -Post Debridement (cm) - Width -Post Debridement (cm) - Depth -Total Square (Post) (cm) -Area of Debridement (cm) - Length -Area of Debridement (cm) - Width -Total Square (Area) (cm) -Tunneling -Undermining/Tunneling -Circular Undermining -Wound/Ulcer Outcome -Ulcer Cleansing -Foul Odor after Cleansing -Bioengineered Tissue -Bleeding Controlled with -Offloading -Type of Offloading -Treatment Response -Debridement - Subq, 1st 20sq cm 5-right 1st metatarsal -Time 12:10 10:57 10:49 -Correct Patient Yes Yes Yes -Correct Side, Site, Position Yes Yes Yes -Correct Procedure Yes Yes Yes -Procedure Performed Yes Yes Yes -Type of Procedure Debridement Debridement Debridement -Clinical Debridement Subcutaneous Subcutaneous Subcutaneous -Tissue Removed Subcutaneous Subcutaneous Subcutaneous -Post Debridement (cm) - Length 0.2 0.1 0.2 -Post Debridement (cm) - Width 0.2 1 0.3 -Post Debridement (cm) - Depth 0.4 0.4 0.3 -Total Square (Post) (cm) 0.04 0.1 0.06 -Area of Debridement (cm) - Length 0.2 0.1 0.2 -Area of Debridement (cm) - Width 0.2 0.1 0.3 -Total Square (Area) (cm) 0.04 0.01 0.06 -Tunneling No No No -Undermining/Tunneling No No No -Circular Undermining No No No -Wound/Ulcer Outcome Not Healed Not Healed Not Healed -Ulcer Cleansing Rinsed/ Rinsed/ Rinsed/ Irrigated with Irrigated with Irrigated with Saline Saline Saline -Foul Odor after Cleansing No No No -Bioengineered Tissue No No No -Bleeding Controlled with Pressure Pressure Pressure -Offloading No No No -Type of Offloading -Treatment Response Procedure Procedure Procedure Tolerated Well Tolerated Well Tolerated Well -Debridement - Subq, 1st 20sq cm Yes Yes Yes #4 left medial hallux -Time 12:10 10:58 10:51 -Correct Patient Yes Yes Yes -Correct Side, Site, Position Yes Yes Yes -Correct Procedure Yes Yes Yes -Procedure Performed Yes Yes Yes -Type of Procedure Debridement Incision & Debridement Drainage -Clinical Debridement Subcutaneous Bone Subcutaneous -Tissue Removed Subcutaneous Fascia,Tendon Subcutaneous -Post Debridement (cm) - Length 0.5 0.3 0.3 -Post Debridement (cm) - Width 0.5 0.1 0.4 -Post Debridement (cm) - Depth 0.4 0.3 0.2 -Total Square (Post) (cm) 0.25 0.03 0.12 -Area of Debridement (cm) - Length 0.5 0.3 0.3 -Area of Debridement (cm) - Width 0.5 0.1 0.4 -Total Square (Area) (cm) 0.25 0.03 0.12 -Tunneling No No No -Undermining/Tunneling No No No -Circular Undermining No No No -Wound/Ulcer Outcome Not Healed Not Healed Not Healed -Ulcer Cleansing Rinsed/ Rinsed/ Rinsed/ Irrigated with Irrigated with Irrigated with Saline Saline Saline -Foul Odor after Cleansing Yes, Due to No No Product Use -Bioengineered Tissue No No No -Bleeding Controlled with Pressure Pressure Pressure -Offloading No No No -Type of Offloading -Treatment Response Procedure Procedure Procedure Tolerated Well Tolerated Well Tolerated Well -Debridement - Subq, 1st 20sq cm No No -Debridement - Bone, 1st 20sq cm Yes Pain Scale: 0-10 Numeric Is Patient Pain Free? Yes Yes Yes 10/27/20 11/04/20 10:41 15:33 Wound Center Nurse 2 6-left middle plantar foot -Time 15:44 -Correct Patient Yes -Correct Side, Site, Position Yes -Correct Procedure Yes -Procedure Performed Yes -Type of Procedure Debridement -Clinical Debridement Subcutaneous -Tissue Removed Subcutaneous -Post Debridement (cm) - Length 0.2 -Post Debridement (cm) - Width 0.4 -Post Debridement (cm) - Depth 0.5 -Total Square (Post) (cm) 0.08 -Area of Debridement (cm) - Length 0.2 -Area of Debridement (cm) - Width 0.5 -Total Square (Area) (cm) 0.10 -Tunneling No -Undermining/Tunneling No -Circular Undermining No -Wound/Ulcer Outcome Not Healed -Ulcer Cleansing Rinsed/ Irrigated with Saline -Foul Odor after Cleansing No -Bioengineered Tissue No -Bleeding Controlled with Pressure -Offloading Yes -Type of Offloading Surgical Shoe -Treatment Response Procedure Tolerated Well -Debridement - Subq, 1st 20sq cm No 5-right 1st metatarsal -Time 10:42 15:35 -Correct Patient Yes Yes -Correct Side, Site, Position Yes Yes -Correct Procedure Yes Yes -Procedure Performed Yes Yes -Type of Procedure Debridement Debridement -Clinical Debridement Subcutaneous Subcutaneous -Tissue Removed Subcutaneous Subcutaneous -Post Debridement (cm) - Length 0.2 0.4 -Post Debridement (cm) - Width 0.2 0.4 -Post Debridement (cm) - Depth 0.2 0.2 -Total Square (Post) (cm) 0.04 0.16 -Area of Debridement (cm) - Length 0.2 0.4 -Area of Debridement (cm) - Width 0.2 0.4 -Total Square (Area) (cm) 0.04 0.16 -Tunneling No No -Undermining/Tunneling No No -Circular Undermining No No -Wound/Ulcer Outcome Not Healed Not Healed -Ulcer Cleansing Rinsed/ Rinsed/ Irrigated with Irrigated with Saline Saline -Foul Odor after Cleansing No No -Bioengineered Tissue No No -Bleeding Controlled with Pressure Pressure -Offloading No Yes -Type of Offloading Surgical Shoe -Treatment Response Procedure Procedure Tolerated Well Tolerated Well -Debridement - Subq, 1st 20sq cm Yes Yes #4 left medial hallux -Time 10:42 15:35 -Correct Patient Yes Yes -Correct Side, Site, Position Yes Yes -Correct Procedure Yes Yes -Procedure Performed Yes Yes -Type of Procedure Debridement Debridement -Clinical Debridement Subcutaneous Subcutaneous -Tissue Removed Subcutaneous Subcutaneous -Post Debridement (cm) - Length 0.3 0.3 -Post Debridement (cm) - Width 0.4 0.5 -Post Debridement (cm) - Depth 0.2 0.5 -Total Square (Post) (cm) 0.12 0.15 -Area of Debridement (cm) - Length 0.3 0.3 -Area of Debridement (cm) - Width 0.4 0.5 -Total Square (Area) (cm) 0.12 0.15 -Tunneling No No -Undermining/Tunneling No No -Circular Undermining No -Wound/Ulcer Outcome Not Healed -Ulcer Cleansing Rinsed/ Rinsed/ Irrigated with Irrigated with Saline Saline -Foul Odor after Cleansing No No -Bioengineered Tissue No No -Bleeding Controlled with Pressure Pressure -Offloading No Yes -Type of Offloading Surgical Shoe -Treatment Response Procedure Procedure Tolerated Well Tolerated Well -Debridement - Subq, 1st 20sq cm No No -Debridement - Bone, 1st 20sq cm Pain Scale: 0-10 Numeric Is Patient Pain Free? Yes Yes - Nurse 3 - General Ulcer D/C NN Start: 10/06/20 11:34 Freq: Status: Active Protocol: Activity Type Activity Date Activity User E-Sign Co-Sign Detail Recorded Client Recorded Date Recorded By Document 10/06/20 12:20 [id number] 10/06/20 12:21 JF Document 10/13/20 11:12 DL [id number] 10/13/20 11:20 DL Document 10/20/20 10:56 MW [id number] 10/20/20 10:57 MW Document 10/27/20 10:51 DL [id number] 10/27/20 10:53 DL 10/06/20 10/13/20 10/20/20 12:20 11:12 10:56 Wound Care Nurse 3 5-right 1st metatarsal -Ulcer Cleansing Rinsed/ Rinsed/ Rinsed/ Irrigated with Irrigated with Irrigated with Saline Saline Saline -Foul Odor after Cleansing No No No -Negative Pressure Wound Therapy N/A -Primary Dressing Applied C Hydrogel ($) -Other Dressing hydrogel c.hydrogel -Primary Dressing Covered/Secured with Dry Gauze & Dry Gauze & Dry Gauze & Roll Gauze, Roll Gauze, Roll Gauze, Secured with Secured with Secured with Tape Tape Tape #4 left medial hallux -Ulcer Cleansing Rinsed/ Rinsed/ Rinsed/ Irrigated with Irrigated with Irrigated with Saline Saline Saline -Foul Odor after Cleansing No No No -Negative Pressure Wound Therapy N/A -Primary Dressing Applied C Hydrogel ($) -Other Dressing hydrogel c.hydrogel -Primary Dressing Covered/Secured with Dry Gauze & Dry Gauze & Dry Gauze & Roll Gauze, Roll Gauze, Roll Gauze, Secured with Secured with Secured with Tape Tape Tape Left -Tubular Bandage -Size of Tubigrip Used -Size C ($) Right -Tubular Bandage -Size of Tubigrip Used -Size C ($) Treatment Response Procedure Procedure Tolerated Well Tolerated Well Pain Scale: 0-10 Numeric Is Patient Pain Free? Yes Yes Yes Teaching: Wound Center Dressing Your Wound -Person Taught Patient -Teaching Method Discussion, Demonstration -Response to teaching Verbalize understanding WC - Visit Discharge Discharge Condition Stable Stable Stable Ambulatory Status Ambulatory Ambulatory Ambulatory Transportation Private Auto Private Auto Private Auto Accompanied by Medication Reconcilliation completed & Yes No provided to patient/care provider Clinical Summary of Care Provided Yes Yes 10/27/20 10:51 Wound Care Nurse 3 5-right 1st metatarsal -Ulcer Cleansing Rinsed/ Irrigated with Saline -Foul Odor after Cleansing No -Negative Pressure Wound Therapy -Primary Dressing Applied -Other Dressing hydrogel -Primary Dressing Covered/Secured with Dry Gauze & Roll Gauze, Secured with Tape #4 left medial hallux -Ulcer Cleansing Rinsed/ Irrigated with Saline -Foul Odor after Cleansing No -Negative Pressure Wound Therapy -Primary Dressing Applied -Other Dressing hydrogel -Primary Dressing Covered/Secured with Dry Gauze & Roll Gauze, Secured with Tape Left -Tubular Bandage Double Layer -Size of Tubigrip Used Size C -Size C ($) 1 Right -Tubular Bandage Double Layer -Size of Tubigrip Used Size C -Size C ($) 1 Treatment Response Procedure Tolerated Well Pain Scale: 0-10 Numeric Is Patient Pain Free? Yes Teaching: Wound Center Dressing Your Wound -Person Taught -Teaching Method -Response to teaching WC - Visit Discharge Discharge Condition Stable Ambulatory Status Ambulatory Transportation Private Auto Accompanied by Medication Reconcilliation completed & provided to patient/care provider Clinical Summary of Care Provided Wound debrided: sub 1st metatarsal head bilateral and sub central metatarsal head left ft Wound Grade/Stage: Type of Debridement: Excisional debridement Anesthesia Used: 4% Lidocaine Solution Depth: in the subcutaneous layer Percentage of wound debrided: 100 Instrument Used: #15 blade Tissue Removed: fibrous, devitalized subcutaneous, biofilm, slough Severity: Fat Layer Exposed Amount of bleeding with debridement: Mild Bleeding Controlled with: Pressure Patient tolerated procedure: Patient tolerated procedure well Assessment/Plan Assessment/Plan (1) Pressure ulcer of left foot, stage 4: CODE(S): L89.894 - Pressure ulcer of other site, stage 4 (2) Pressure ulcer of right foot, stage 4: CODE(S): L89.894 - Pressure ulcer of other site, stage 4 (3) Osteomyelitis: CODE(S): M86.9 - Osteomyelitis, unspecified QUALIFIERS: Osteomyelitis type: other acute Osteomyelitis location: foot Laterality: left Qualified Code(s): M86.172 - Other acute osteomyelitis, left ankle and foot (4) Left foot pain: CODE(S): M79.672 - Pain in left foot (5) Fat pad atrophy of foot: CODE(S): L90.9 - Atrophic disorder of skin, unspecified (6) PAD (peripheral artery disease): CODE(S): I73.9 - Peripheral vascular disease, unspecified (7) Steroid long-term use: (8) Delayed wound healing: CODE(S): T14.8XXD - Other injury of unspecified body region, subsequent encounter (9) Corns and callosities: CODE(S): L84 - Corns and callosities (10) Rheumatoid arthritis: CODE(S): M06.9 - Rheumatoid arthritis, unspecified QUALIFIERS: Rheumatoid arthritis location: foot Rheumatoid factor presence: unspecified presence Laterality: bilateral Qualified Code(s): M06.9 - Rheumatoid arthritis, unspecified (11) Pain in right foot: CODE(S): M79.671 - Pain in right foot (12) Left foot infection: CODE(S): L08.9 - Local infection of the skin and subcutaneous tissue, unspecified (13) 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 Debridement performed as noted bilateral. Verbal consent was obtained and she tolerated this well. Ulceration to right plantar first metatarsal head remained stable. On the left foot noted red spot to the fifth metatarsal head concerning for preulcerative area remains but is improved. Patient was started on doxycycline which was sent to patient's pharmacy. She was seen by Dr. Clements today in which the patient reports she will be started on Bactrim. Note will be reviewed upon completion. Consultation is appreciated. She was reassured there is no purulence noted today and I do not recommend any invasive procedures. Patient also relates recent hospital admission. Awaiting due to a heart attack. Patient says she is feeling better now. Patient will need to get cardiac clearance prior to resuming HBO. Awaiting note from residential mortgage manager. This is in process. Plantar first metatarsal wounds bilaterally has easily bone exposed. Left foot xray 05/29/2020 did not show osteomyelitis. Given clinical appearance MRI was ordered. MRI 06/25/20 showed evidence of osteomyelitis to left diaphysis of 1st metatarsal. Culture obtained 09/15/2020 demonstrated Staphylococcus Lugdenensis and Corynebacterium species. Patient was started on doxycycline. Patient relates she only has a couple days left of the antibiotic. Patient was given a refill for doxycycline sent to her pharmacy. Further cultures obtained 10/13/2020 demonstrated Staphylococcus epididymis. LEAS 06/30/20 showed moderate distal small vessel disease bilaterally at the digits. The left foot was noted to have biphasic pulses with CRUZ of 1.27 and TBI of 0.37. The left PT was noncompressible. The right foot PT and DP were noncompressible and TBI of 0.4 with triphasic and biphasic pulses. Patient had procedure with Dr Oseguera 07/21/20. Patient reports that the procedure went well. Dr. Oseguera has no further interventions planned at this time. The etiology of her ulcers appears to be from pressure at sites of metatarsal heads as there is significant fat pad atrophy. Discussed with the patient the importance of proper shoe gear with good padding to supplement lost fat pad. This is most likely due to her rheumatoid arthritis, chronic prednisone treatment may also have a role in the nonhealing of the ulcers. Offloading was discussed at length today, patient relates that she has a surgical shoe with forefoot offloaded however it is very old and she denies being able to wear this. Patient also aware tennis shoes with offloading inserts noted to bilateral shoes. Recommend patient wear surgical shoe at this time and she is amendable to try a new set today. Dual density offloading Plastizote liners were fabricated today to take pressure off of her ulcer sites. I recommend the use of a walker or cane to aid in balance with these new shoe devices. She relates she will get this from her hinduism and defers a prescription today. Discussed importance of smoking cessation, blood sugar control, weight management, offloading, proper nutrition, and hygiene to optimize healing potential. Discussed that her chronic steroid use for her RA can impact wound healing as well as impact her body's ability to mount an immune response. Also her vascular disease may also be playing into her poor ability to heal. There is suspicion that osteomyelitis infection may still remain given factors that may be impeding wound healing as well as chronic bone exposure to bilateral 1st metatarsals now through the wounds. Upon previous discussion it was noted that the patient did not wish to undergo bone debridement given the extent of osteomyelitis per MRI as well as her already established history of poor wound healing. It was decided that it was not worth the risk of potentially creating a larger wound that potentially more bacteria could then use to infect the wound. The remaining bone exposure puts patient at clinical osteomyelitis since she has been seen. Patient wounds are too small for skin substitute applications. Patient also noted to not to be diabetic but does have history of osteomyelitis so may potentially be a candidate for hyperbaric oxygen therapy. We will discuss to see if patient might be a potential candidate under nondiabetic guidelines. This would include further work up with labs, imaging, and clearance consultation. If patient is approved for hyperbaric oxygen therapy our goals would be to heal her wounds to bilateral feet while continuing regular debridements, monitoring, offloading, and medical optimizing and monitoring. Patient to see Dr. Steinberg for HBO evaluation. This was given prior to patient's recent heart attack and hospital admission. Patient will need to get cardiac clearance prior to being approved for HBO. We are resending for these notes. Encouraged protein rich diet and protein supplements. Advised to call with questions or concerns. All questions answered. Continue wound care to foot ulcerations daily. Patient was given Tubigrip's for compression and edema control Follow-up in [address] Cavanaugh. This note was generated with [employer] dictation software. It may contain incorrect words, spelling, and punctuation that were not noted in checking the note before signing. The medical decision making level is limited based on data including the review of prior external notes, review of a prior test, or ordering a test. The medical decision making level is low. There is noted low risk of morbidity after considering this treatment plan and diagnostic data. The problems addressed require a low medical decision making level which includes two or more minor problems, a stable chronic illness, or an acute uncomplicated illness or injury.
== END 2020-11-04 23:59 ==
LOC: WC 15:00
PROVIDERS: PCP Physician Assistant; Visit Provider Podiatrist Foot & Ankle Surgery
DX: L89.894 Pressure ulcer of other site, stage 4 (principal); M86.172 Other acute osteomyelitis, left ankle and foot; M79.672 Pain in left foot; L90.9 Atrophic disorder of skin, unspecified; I73.9 Peripheral vascular disease, unspecified; T14.8XXD Other injury of unspecified body region, subsequent encounter; L84 Corns and callosities; M06.9 Rheumatoid arthritis, unspecified; M79.671 Pain in right foot; L97.516 Non-pressure chronic ulcer of other part of right foot with bone involvement without evidence of necrosis; L97.526 Non-pressure chronic ulcer of other part of left foot with bone involvement without evidence of necrosis; Z79.52 Long term (current) use of systemic steroids; I25.2 Old myocardial infarction; R60.9 Edema, unspecified
CPT/HCPCS: 11042; 11044; 87070; 87075; 87077; 87176; 87186; 87205; 87640

== ENCOUNTER 2020-11-17 11:15 | Outpatient (RCR) | payer MEDICARE, SELFPAY ==
[2020-11-05 00:22] VITALS: BP 143/60; PULSE 72; RESP 16; TEMP 36.1
[2020-11-10 11:37] VITALS: BP 157/60; PULSE 69; RESP 17; TEMP 36.3; BMI 18.6
--- NOTE | 2020-11-10 12:33 | PN.PCM_ITS ---
History of Present Illness Date of Service: 11/10/20 Chief Complaint: Bilateral 1st metatarsal ulceration with chronic refractory osteomyelitis of the left first metatarsal. sub metatarsal head ulcer right History of Wound: Kylah is a 75-year-old female who was referred here for treatment of an ulcer at the base of her great toe at her metatarsal head from Dr. Poe, her inside outside sales representative. She has been receiving treatment to this area for the last [address] Poe has attempted to debride and close it surgically with sutures but it reopened and it hasn't healed. She has a history of ulcerat ions underneath her big toe on both feet. 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 Patient has had a recent culture on 05/11/20, positive for Staphylococcus lugendenosis. Another culture was taken which demonstrated staph epididymis. With most recent culture taken 07/01/2020 with no growth seen. She has previously demonstrated an apparent allergy to collagen hydrogel. The patient has had vascular studies, without evidence of significant superficial vein incompetence in the left lower extremity in 2017. Her noninvasive lower extremity arterial study reveals normal ankle?brachial indices bilaterally in 2017. New studies on 06/30/20 showed moderate distal small vessel disease bilaterally at the digits with some non compressible vessels. Patient saw her vascular surgeon, Dr Oseguera, who did intervention on the patient on 07/21/20. Dr. Oseguera has no further interventions planned at this time. She had MRI on 06/25/20 which showed osteomyelitis to left 1st metatarsal. Patient saw Dr Clements who started her on cephalexin and doxycycline to treat her osteomyelitis. She was seen again today and additional antibiotics were recommended. He denies fever, chill, nausea, vomiting, redness, odor. The patient is noted to be on prednisone and methotrexate for her rheumatoid arthritis. These are acknowledged to be possible inhibitors to wound healing. Patient noted to have painful feet due to her rheumatoid arthritis. Patient relates that she goes to special shoe store to get offloading insert added to her shoes to help prevent callus buildup. Patient relates addition of pads to her slippers for home use has helped. Progress of Wound: Stable Subjective Subjective Patient seen and examined resting comfortably. Patient denies any new pedal complaints. Patient denies any nausea, fever, chills, chest pain, shortness of breath, cough, streaking, purulence, vomiting. Patient relates that the offloaded surgical shoe is bothering her on both feet. Objective Data Objective Data Vital Signs: Vital Signs Temp Pulse Resp BP 97.3 F L 69 17 157/60 H 11/10/20 11:37 11/10/20 11:37 11/10/20 11:37 11/10/20 11:37 Weight: 46.266 kg Body Mass Index (BMI) 18.6 Lab / Micro Data Result Diagrams: 11/10/20 12:43 11/10/20 12:43 Physical Exam Narrative Narrative Const alert and no apparent distress General Appearance: cooperative and comfortable Lymph Lymphatic: no lymphedema noted Resp normal respiratory effort Effort and Inspection: able to speak in complete sentences Extremity no calf tenderness, negative yasmine and baker sign lower extremity edema General Extremity: tenderness to palpation palpable metatarsal heads. There is Significant fat pad atrophy noted with easily palpable metatarsal heads 1 through 5 bilaterally. Negative for clubbing or cyanosis or ecchymosis or eryt cipriano Vasc Peripheral Pulses: posterior tibial pulses absent and dorsalis pedis pulses present but diminished, normal capillary refill, no acute ischemic skin changes noted, cool temperature Skin General Skin Exam: dry flaky atrophic skin to entire bilateral lower extremities, absent hair growth noted; Negative for ecchymosis, eschar, pallor, rashes Wound Narrative: ulcers noted to plantar first metatarsal head bilaterally and left sub second metatarsal head site also No malodor, erythema, purulence, streaking, fluctuation, crepitus. Skin is atrophic and hairless. Granular base. Wounds probe to bone bilaterally. Serosanguineous drainage noted to bilateral wounds. There is significant amount of fat pad atrophy noted to bilateral feet secondary to patient's rheumatoid arthritis. There is noted callus buildup within the ulceration site with and overlying the wounds. Peripheral callous noted to all ulcer sites Red irritated area noted to plantar lateral fifth metatarsal head on the left has resolved. Callus tissue noted to metatarsal heads plantarly left more so than right Neuro Gait (Neuro): heel to toe Sensory Exam: extremities light-touch: Intact MSK Motor Exam: strength 5/5 throughout, ROM to foot and ankle joints within normal limits Psych Appearance: appropriate Attitude: calm Debridement Note Debridement Note Post-Debridement Measurements and Additional Note: Post-Debridement Measurements/Treatment - Nurse 1 - General Ulcer Assessment Start: 11/10/20 11:37 Freq: Status: Active Protocol: GEORGE Activity Type Activity Date Activity User E-Sign Co-Sign Detail Recorded Client Recorded Date Recorded By Document 11/10/20 11:37 ML [id number] 11/10/20 11:47 ML 11/10/20 11:37 WC - Today's Visit Information Patient Identification Verified (Name & Yes ) Patient Requires Transmission-Based No Precautions Safety Precautions NA Height and Weight Body Mass Index (BMI) 18.6 BMI Classification Normal Vital Signs Temperature (97.8 F-99.1 F) 97.3 F L Temperature Source Temporal Pulse Rate (60-100) 69 Respiratory Rate (12-18) 17 Respiratory rate source Observation Blood Pressure (90/60-120/80) 157/60 H Blood Pressure Mean (mm Hg) 92 Source Monitor History Since Last Visit- (Skip if this is Patient's initial visit) Have you changed medications since your No last visit? Any new allergies or adverse reactions No Signs or symptoms of abuse and/or No neglect since last visit Have you been in the hospital since your No last visit? Has dressing in place as prescribed Yes Has compression in place as prescribed N/A Has offloadiing in place as prescribed N/A Left Footwear Regular Shoe Right Footwear Regular Shoe Pain Scale: 0-10 Numeric Is Patient Pain Free? Yes - Nurse 1 - General Ulcer Measurement Start: 11/10/20 11:37 Freq: Status: Active Protocol: Activity Type Activity Date Activity User E-Sign Co-Sign Detail Recorded Client Recorded Date Recorded By Document 11/10/20 11:37 ML [id number] 11/10/20 11:47 ML 11/10/20 11:37 Wound Center Nurse 1 6-left middle plantar foot -Current Size (cm) - Length 1 -Current Size (cm) - Width 1.3 -Current Size (cm) - Depth 0.1 -Total Square Cm 1.3 -Exudate Amt Small -Wound Margin Distinct, Outline Attached -Granulation Amt Large (67-100%) -Slough/Fibrin No -Necrosis Amt None Present (0 %) -Texture (Анна-wound Skin Appearance) Assessed -Moisture (Анна-wound Skin Appearance) Assessed -Color (Анна-wound Skin Appearance) Assessed -Tenderness on Palpation (Анна-wound Yes Skin Appearance) -Ulcer Cleansing Rinsed/ Irrigated with Saline -Foul Odor after Cleansing No -Anesthetic Used 4% Lidocaine Solution 5-right 1st metatarsal -Current Size (cm) - Length 0.2 -Current Size (cm) - Width 0.2 -Current Size (cm) - Depth 0.3 -Total Square Cm 0.04 -Exudate Amt Small -Wound Margin Distinct, Outline Attached -Granulation Amt Large (67-100%) -Slough/Fibrin No -Necrosis Amt None Present (0 %) -Texture (Анна-wound Skin Appearance) Assessed -Moisture (Анна-wound Skin Appearance) Assessed -Color (Анна-wound Skin Appearance) Assessed -Tenderness on Palpation (Анна-wound No Skin Appearance) -Ulcer Cleansing Rinsed/ Irrigated with Saline -Foul Odor after Cleansing No -Anesthetic Used 4% Lidocaine Solution #4 left medial hallux -Current Size (cm) - Length 0.1 -Current Size (cm) - Width 0.1 -Current Size (cm) - Depth 0.1 -Total Square Cm 0.01 -Exudate Amt None Present -Granulation Amt Large (67-100%) -Slough/Fibrin No -Necrosis Amt None Present (0 %) -Texture (Анна-wound Skin Appearance) Assessed -Moisture (Анна-wound Skin Appearance) Assessed -Color (Анна-wound Skin Appearance) Assessed -Temperature (Анна-wound Skin No Abnormality Appearance) (Pt Warm) -Tenderness on Palpation (Анна-wound Yes Skin Appearance) -Ulcer Cleansing Rinsed/ Irrigated with Saline -Foul Odor after Cleansing No -Anesthetic Used 4% Lidocaine Solution WC - Nurse 2 - General Ulcer CM Notes Start: 11/10/20 11:37 Freq: Status: Active Protocol: Activity Type Activity Date Activity User E-Sign Co-Sign Detail Recorded Client Recorded Date Recorded By Document 11/10/20 11:52 REJI [id number] 11/10/20 12:00 REJI 11/10/20 11:52 Wound Center Nurse 2 6-left middle plantar foot -Time 11:58 -Correct Patient Yes -Correct Side, Site, Position Yes -Correct Procedure Yes -Procedure Performed Yes -Type of Procedure Debridement -Clinical Debridement Subcutaneous -Tissue Removed Subcutaneous -Post Debridement (cm) - Length 0.3 -Post Debridement (cm) - Width 0.3 -Post Debridement (cm) - Depth 0.2 -Total Square (Post) (cm) 0.09 -Area of Debridement (cm) - Length 0.3 -Area of Debridement (cm) - Width 0.3 -Total Square (Area) (cm) 0.09 -Tunneling No -Undermining/Tunneling No -Circular Undermining No -Wound/Ulcer Outcome Not Healed -Ulcer Cleansing Rinsed/ Irrigated with Saline -Foul Odor after Cleansing No -Bioengineered Tissue No -Bleeding Controlled with Pressure -Offloading Yes -Type of Offloading Surgical Shoe -Treatment Response Procedure Tolerated Well -Debridement - Subq, 1st 20sq cm No 5-right 1st metatarsal -Time 11:53 -Correct Patient Yes -Correct Side, Site, Position Yes -Correct Procedure Yes -Procedure Performed Yes -Type of Procedure Debridement -Clinical Debridement Subcutaneous -Tissue Removed Subcutaneous -Post Debridement (cm) - Length 0.3 -Post Debridement (cm) - Width 0.3 -Post Debridement (cm) - Depth 0.3 -Total Square (Post) (cm) 0.09 -Area of Debridement (cm) - Length 0.3 -Area of Debridement (cm) - Width 0.3 -Total Square (Area) (cm) 0.09 -Tunneling No -Undermining/Tunneling No -Circular Undermining No -Wound/Ulcer Outcome Not Healed -Ulcer Cleansing Rinsed/ Irrigated with Saline -Foul Odor after Cleansing No -Bioengineered Tissue No -Bleeding Controlled with Pressure -Offloading Yes -Type of Offloading Surgical Shoe -Treatment Response Procedure Tolerated Well -Debridement - Subq, 1st 20sq cm No #4 left medial hallux -Time 11:54 -Correct Patient Yes -Correct Side, Site, Position Yes -Correct Procedure Yes -Procedure Performed Yes -Type of Procedure Debridement -Clinical Debridement Subcutaneous -Tissue Removed Subcutaneous -Post Debridement (cm) - Length 0.5 -Post Debridement (cm) - Width 0.9 -Post Debridement (cm) - Depth 0.3 -Total Square (Post) (cm) 0.45 -Area of Debridement (cm) - Length 0.5 -Area of Debridement (cm) - Width 0.9 -Total Square (Area) (cm) 0.45 -Tunneling No -Undermining/Tunneling No -Circular Undermining No -Wound/Ulcer Outcome Not Healed -Ulcer Cleansing Rinsed/ Irrigated with Saline -Foul Odor after Cleansing No -Bioengineered Tissue No -Bleeding Controlled with Pressure -Offloading Yes -Type of Offloading Surgical Shoe -Treatment Response Procedure Tolerated Well -Debridement - Subq, 1st 20sq cm Yes Pain Scale: 0-10 Numeric Is Patient Pain Free? Yes WC - Nurse 3 - General Ulcer D/C NN Start: 11/10/20 11:37 Freq: Status: Active Protocol: Activity Type Activity Date Activity User E-Sign Co-Sign Detail Recorded Client Recorded Date Recorded By Document 11/10/20 12:08 MW [id number] 11/10/20 12:10 MW 11/10/20 12:08 Wound Care Nurse 3 6-left middle plantar foot -Ulcer Cleansing Rinsed/ Irrigated with Saline -Foul Odor after Cleansing No -Negative Pressure Wound Therapy N/A -Other Dressing c.hydrogel -Primary Dressing Covered/Secured with Dry Gauze & Roll Gauze, Secured with Tape 5-right 1st metatarsal -Ulcer Cleansing Rinsed/ Irrigated with Saline -Foul Odor after Cleansing No -Negative Pressure Wound Therapy N/A -Other Dressing c.hydrogel -Primary Dressing Covered/Secured with Dry Gauze & Roll Gauze, Secured with Tape #4 left medial hallux -Ulcer Cleansing Rinsed/ Irrigated with Saline -Foul Odor after Cleansing No -Negative Pressure Wound Therapy N/A -Other Dressing c.hydrogel -Primary Dressing Covered/Secured with Dry Gauze & Roll Gauze, Secured with Tape Treatment Response Procedure Tolerated Well Pain Scale: 0-10 Numeric Is Patient Pain Free? Yes Teaching: Wound Center Dressing Your Wound -Person Taught Patient -Teaching Method Discussion, Demonstration -Response to teaching Verbalize understanding WC - Visit Discharge Discharge Condition Stable Ambulatory Status Ambulatory Transportation Private Auto Accompanied by Medication Reconcilliation completed & No provided to patient/care provider Clinical Summary of Care Provided Yes Wound debrided: Plantar first and second metatarsal heads Laterality: Left Type of Debridement: Excisional debridement Anesthesia Used: 4% Lidocaine Solution Depth: in the subcutaneous layer Percentage of wound debrided: 100 Instrument Used: 3mm curette Tissue Removed: includes fibrous, devitalized, biofilm, callus and slough tissue Severity: Fat Layer Exposed Amount of bleeding with debridement: Mild Bleeding Controlled with: Pressure Patient tolerated procedure: Patient tolerated procedure well Additional Wound Wound debrided: Plantar first metatarsal head Laterality: Right Type of Debridement: Excisional debridement Anesthesia Used: 4% Lidocaine Solution Depth: in the subcutaneous layer Percentage of wound debrided: 100 Instrument Used: 3mm curette Tissue Removed: Includes fibrous, devitalized, biofilm, callus and slough tissue Severity: Fat Layer Exposed Amount of bleeding with debridement: Mild Bleeding Controlled with: Pressure Patient tolerated procedure: Patient tolerated procedure well Assessment/Plan Assessment/Plan (1) Ulcer of left foot with bone involvement without evidence of necrosis: CODE(S): L97.526 - Non-pressure chronic ulcer of other part of left foot with bone involvement without evidence of necrosis (2) Ulcer of right foot with bone involvement without evidence of necrosis: CODE(S): L97.516 - Non-pressure chronic ulcer of other part of right foot with bone involvement without evidence of necrosis (3) Fat pad atrophy of foot: CODE(S): L90.9 - Atrophic disorder of skin, unspecified (4) Delayed wound healing: CODE(S): T14.8XXD - Other injury of unspecified body region, subsequent encounter (5) Steroid long-term use: (6) PAD (peripheral artery disease): CODE(S): I73.9 - Peripheral vascular disease, unspecified (7) Rheumatoid arthritis: CODE(S): M06.9 - Rheumatoid arthritis, unspecified QUALIFIERS: Laterality: bilateral Rheumatoid arthritis location: foot Rheumatoid factor presence: unspecified presence Qualified Code(s): M06.9 - Rheumatoid arthritis, unspecified PLAN: Patient seen and examined. Wounds are stable. Patient noted to have relatively new wound to the left forefoot Debridement performed as noted bilateral. Verbal consent was obtained and she tolerated this well. She was seen by Dr. Clements 11/04/2020 in which the patient reports she will be started on Bactrim. Note will be reviewed upon completion. Consultation is appreciated. She was reassured there is no purulence noted today and I do not recommend any invasive procedures. Patient also relates recent hospital admission. Awaiting due to a heart attack. Patient says she is feeling better now. Patient will need to get cardiac clearan ce prior to resuming HBO. 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 This is in process. Plantar first metatarsal wounds bilaterally has easily bone exposed. Left foot xray 05/29/2020 did not show osteomyelitis. Given clinical appearance MRI was ordered. MRI 06/25/20 showed evidence of osteomyelitis to left diaphysis of 1st metatarsal. Culture obtained 09/15/2020 demonstrated Staphylococcus Lugdenensis and Corynebacterium species. Patient was started on doxycycline. Patient relates she only has a couple days left of the antibiotic. Patient was given a refill for doxycycline sent to her pharmacy. Further cultures obtained 10/13/2020 demonstrated Staphylococcus epididymis. LEAS 06/30/20 showed moderate distal small vessel disease bilaterally at the digits. The left foot was noted to have biphasic pulses with CRUZ of 1.27 and TBI of 0.37. The left PT was noncompressible. The right foot PT and DP were noncompressible and TBI of 0.4 with triphasic and biphasic pulses. Patient had procedure with Dr Oseguera 07/21/20. Patient reports that the procedure went well. Dr. Oseguera has no further interventions planned at this time. The etiology of her ulcers appears to be from pressure at sites of metatarsal heads as there is significant fat pad atrophy. Discussed with the patient the importance of proper shoe gear with good padding to supplement lost fat pad. This is most likely due to her rheumatoid arthritis, chronic prednisone treatment may also have a role in the nonhealing of the ulcers. Offloading was discussed at length today. Patient wears tennis shoes with offloading inserts noted to bilateral shoes. Recommend patient wear surgical shoe at this time. Shoe had forefoot offloaded surgical shoes further modified today for improved comfort. Dual density offloading Plastizote liners were fabricated to take pressure off of her ulcer sites. Discussed importance of smoking cessation, blood sugar control, weight management, offloading, proper nutrition, and hygiene to optimize healing potential. Discussed that her chronic steroid use for her RA can impact wound healing as well as impact her body's ability to mount an immune response. Also her vascular disease may also be playing into her poor ability to heal. There is suspicion that osteomyelitis infection may still remain given factors that may be impeding wound healing as well as chronic bone exposure to bilateral 1st metatarsals now through the wounds. Upon previous discussion it was noted that the patient did not wish to undergo bone debridement given the extent of osteomyelitis per MRI as well as her already established history of poor wound healing. It was decided that it was not worth the risk of potentially creating a larger wound that potentially more bacteria could then use to infect the wound. The remaining bone exposure puts patient at clinical osteomyelitis since she has been seen. Patient wounds are too small for skin substitute applications. Patient also noted to not to be diabetic but does have history of osteomyelitis so may potentially be a candidate for hyperbaric oxygen therapy. We will discuss to see if patient might be a potential candidate under nondiabetic guidelines. This would include further work up with labs, imaging, and clearance consultation. If patient is approved for hyperbaric oxygen therapy our goals would be to heal her wounds to bilateral feet while continuing regular debridements, monitoring, offloading, and medical optimizing and monitoring. Patient to see Dr. Steinberg for HBO evaluation. This was given prior to patient's recent heart attack and hospital admission. Patient will need to get cardiac clearance prior to being approved for HBO. We are resending for these notes. Encouraged protein rich diet and protein supplements. Advised to call with questions or concerns. All questions answered. Continue wound care to foot ulcerations daily. Patient was given Tubigrip's for compression and edema control Follow-up in 1 week This note was generated with [employer] dictation software. It may contain incorrect words, spelling, and punctuation that were not noted in checking the note before signing.
[2020-11-10 13:31] LABS: Hematocrit 41.9 % (37-47); Mean Corpuscular Hgb 31.7 pg (27.0-32.0); Mean Corpuscular Volume 102.2 fL (81-99); Mean Platelet Vol. 9.9 fl (6.2-12.0); Platelet Count 174 K/mm3 (150-450); RBC Distribution Width CV 13.9 % (11.6-14.6); RBC Distribution Width SD 52.9 fl (35.1-43.9); White Blood Count 8.2 K/mm3 (4.4-11.0)
[2020-11-10 13:36] LABS: Erythrocyte Sedimentation Rate 21 mm/hr (0-30)
[2020-11-10 13:55] LABS: Anion Gap 5 (5-15); BUN 19 mg/dL (7-18); BUN/Creat Ratio 15.4 RATIO (10-20); Calcium,Total 8.1 mg/dL (8.5-10.1); Chloride 105 mmol/L (98-107); Creatinine, Serum 1.23 mg/dL (0.55-1.02); EST Glomerular Filtration Rate 45 mL/min (>60); Est Glom Filt Rate - Afr Amer 54 mL/min (>60); Estimated Creatinine Clearance 27.98 ml/min; Glucose 110 mg/dL (74-106); Potassium 4.2 mmol/L (3.5-5.1); Sodium Level 138 mmol/L (136-145)
[2020-11-17 10:14] VITALS: BP 123/56; PULSE 78; RESP 18; TEMP 36.8; BMI 18.6
--- NOTE | 2020-11-17 10:37 | PCM.PN.ID ---
Physical Exam Narrative Feeling ok, no fever, no n/v/d. Taking bactrim. Foot about the same, no redness or drainage. Const alert and no apparent distress General Appearance: cooperative Resp normal air movement and clear to auscultation bilaterally Cardio regular rate and regular rhythm GI normal to inspection, nondistended, normoactive bowel sounds Extremity no clubbing, cyanosis or edema Skin Skin Narrative: L foot ulcers, no redness or drainage. Medial ulcer does probe to bone per nursing. ID ID: Route of nutrition/ use of supplements: [] Nutritional Intake: [] IV Site: [] Fonseca Catheter: [] Assessment & Plan Assessment/Plan (1) Osteomyelitis, chronic, ankle or foot: PLAN: On bactrim for 6 week course for CoNS L foot osteo. Reviewed recent labs. Has CKD, will monitor BMP weekly. Return to clinic as needed, will follow labs. D/w nursing.
--- NOTE | 2020-11-17 12:38 | PCM.WC.PN ---
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 sub metatarsal head ulcer right History of Wound: Kylah is a 75-year-old female who was referred here for treatment of an ulcer at the base of her great toe at her metatarsal head from Dr. Poe, her laboratory animal caretaker. She has been receiving treatment to this area for the last [address] Poe has attempted to debride and close it surgically with sutures but it reopened and it hasn't healed. She has a history of ulcerations underneath her big toe on both feet. 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 Patient has had a recent culture on 05/11/20, positive for Staphylococcus lugendenosis. Another culture was taken which demonstrated staph epididymis. With most recent culture taken 07/01/2020 with no growth seen. She has previously demonstrated an apparent allergy to collagen hydrogel. The patient has had vascular studies, without evidence of significant superficial vein incompetence in the left lower extremity in 2017. Her noninvasive lower extremity arterial study reveals normal ankle?brachial indices bilaterally in 2017. New studies on 06/30/20 showed moderate distal small vessel disease bilaterally at the digits with some non compressible vessels. Patient saw her vascular surgeon, Dr Oseguera, who did intervention on the patient on 07/21/20. Dr. Oseguera has no further interventions planned at this time. She had MRI on 06/25/20 which showed osteomyelitis to left 1st metatarsal. Patient saw Dr Clements who started her on cephalexin and doxycycline to treat her osteomyelitis. She was seen again today and additional antibiotics were recommended. He denies fever, chill, nausea, vomiting, redness, odor. The patient is noted to be on prednisone and methotrexate for her rheumatoid arthritis. These are acknowledged to be possible inhibitors to wound healing. Patient noted to have painful feet due to her rheumatoid arthritis. Patient relates that she goes to special shoe store to get offloading insert added to her shoes to help prevent callus buildup. Patient relates addition of pads to her slippers for home use has helped. Progress of Wound: Stable Subjective Subjective Patient seen and examined resting comfortably. Patient denies any new pedal complaints. Patient denies any nausea, fever, chills, chest pain, shortness of breath, cough, streaking, purulence, vomiting. Patient relates continued pain with the offloading surgical shoe stating that the bottom is too hard for her feet and she is very sensitive feet. Patient has gone back to using her tennis shoes which are the most comfortable for her. She also relates that a recent flare in her RA might have contributed to her increased foot pain. Objective Data Objective Data Vital Signs: Vital Signs Temp Pulse Resp BP 98.2 F 78 18 123/56 H 11/17/20 10:14 11/17/20 10:14 11/17/20 10:14 11/17/20 10:14 Weight: 46.266 kg Body Mass Index (BMI) 18.6 Lab / Micro Data Result Diagrams: 11/10/20 12:43 11/10/20 12:43 Physical Exam Narrative Narrative Const alert and no apparent distress General Appearance: cooperative and comfortable Lymph Lymphatic: no lymphedema noted Resp normal respiratory effort Effort and Inspection: able to speak in complete sentences Extremity no calf tenderness, negative yasmine and baker sign lower extremity edema General Extremity: tenderness to palpation palpable metatarsal heads. There is Significant fat pad atrophy noted with easily palpable metatarsal heads 1 through 5 bilaterally. Negative for clubbing or cyanosis or ecchymosis or erythema Vasc Peripheral Pulses: posterior tibial pulses absent and dorsalis pedis pulses present but diminished, normal capillary refill, no acute ischemic skin changes noted, cool temperature Skin General Skin Exam: dry flaky atrophic skin to entire bilateral lower extremities, absent hair growth noted; Negative for ecchymosis, eschar, pallor, rashes Wound Narrative: ulcers noted to plantar first metatarsal head bilaterally and left sub second metatarsal head site also No malodor, erythema, purulence, streaking, fluctuation, crepitus. Skin is atrophic and hairless. Granular base. Wounds probe to bone bilaterally. Scant Serosanguineous drainage noted to bilateral wounds. There is significant amount of fat pad atrophy noted to bilateral feet secondary to patient's rheumatoid arthritis. There is noted callus buildup within the ulceration site with and overlying the wounds. Peripheral callous noted to all ulcer sites. Sub 2nd metatarsal head ulceration is mostly healed. After debridement of left 4th metatarsal head callus site is noted to be preulcerative Callus tissue noted to metatarsal heads plantarly left more so than right. Pain to palpation of plantar forefoot bilaterally Neuro Gait (Neuro): heel to toe Sensory Exam: extremities light-touch: Intact MSK Motor Exam: strength 5/5 throughout, ROM to foot and ankle joints within normal limits Psych Appearance: appropriate Attitude: calm Debridement Note Debridement Note Post-Debridement Measurements and Additional Note: Post-Debridement Measurements/Treatment WC - Nurse 1 - General Ulcer Assessment Start: 11/10/20 11:37 Freq: Status: Active Protocol: [email or web address] Activity Type Activity Date Activity User E-Sign Co-Sign Detail Recorded Client Recorded Date Recorded By Document 11/10/20 11:37 ML [id number] 11/10/20 11:47 ML Document 11/17/20 10:14 DL [id number] 11/17/20 10:23 DL 11/10/20 11/17/20 11:37 10:14 WC - Today's Visit Information Type of service Follow-up Visit (Physician/[employer]UTION SPECIALIST ) Arrival Mode Ambulatory Transfer Assistance None Patient Identification Verified (Name & Yes Yes ) Patient Requires Transmission-Based No No Precautions Safety Precautions NA Height and Weight Body Mass Index (BMI) 18.6 18.6 BMI Classification Normal Normal Vital Signs Temperature (97.8 F-99.1 F) 97.3 F L 98.2 F Temperature Source Temporal Temporal Pulse Rate (60-100) 69 78 Pulse Location Monitor Respiratory Rate (12-18) 17 18 Respiratory rate source Observation Observation Blood Pressure (90/60-120/80) 157/60 H 123/56 H Blood Pressure Mean (mm Hg) 92 78 Source Monitor Monitor History Since Last Visit- (Skip if this is Patient's initial visit) Have you changed medications since your No No last visit? Any new allergies or adverse reactions No No Had a fall/change in ADL's that may No increase risk of falls Signs or symptoms of abuse and/or No No neglect since last visit Have you been in the hospital since your No No last visit? Has dressing in place as prescribed Yes Yes Has compression in place as prescribed N/A N/A Has offloadiing in place as prescribed N/A Yes Experienced any changes in pain level or No management Left Footwear Regular Shoe Other Footwear (Comment) Right Footwear Regular Shoe Other Footwear (Comment) Pain Scale: 0-10 Numeric Is Patient Pain Free? Yes Yes WC - Nurse 1 - General Ulcer Measurement Start: 11/10/20 11:37 Freq: Status: Active Protocol: Activity Type Activity Date Activity User E-Sign Co-Sign Detail Recorded Client Recorded Date Recorded By Document 11/10/20 11:37 ML [id number] 11/10/20 11:47 ML Document 11/17/20 10:14 DL [id number] 11/17/20 10:23 DL 11/10/20 11/17/20 11:37 10:14 Wound Center Nurse 1 6-left middle plantar foot -Current Size (cm) - Length 1 0.1 -Current Size (cm) - Width 1.3 0.1 -Current Size (cm) - Depth 0.1 1 -Total Square Cm 1.3 0.01 -Photo Taken No -Exudate Amt Small None Present -Wound Margin Distinct, Thickened Outline Attached -Granulation Amt Large (67-100%) Large (67-100%) -Granulation Quality Pale -Slough/Fibrin No -Necrosis Amt None Present (0 Large (67-100%) %) -Necrotic Tissue Type Adherent Slough -Structure Exposed N/A -Texture (Анна-wound Skin Appearance) Assessed Callus -Moisture (Анна-wound Skin Appearance) Assessed No Abnormality -Color (Анна-wound Skin Appearance) Assessed No Abnormality, Hemosiderin Staining -Temperature (Анна-wound Skin No Abnormality Appearance) (Pt Warm) -Tenderness on Palpation (Анна-wound Yes Yes Skin Appearance) -Ulcer Cleansing Rinsed/ Wound Cleanser Irrigated with Saline -Foul Odor after Cleansing No No -Anesthetic Used 4% Lidocaine 4% Lidocaine Solution Solution 5-right 1st metatarsal -Current Size (cm) - Length 0.2 0.1 -Current Size (cm) - Width 0.2 0.1 -Current Size (cm) - Depth 0.3 0.1 -Total Square Cm 0.04 0.01 -Photo Taken No -Exudate Amt Small None Present -Wound Margin Distinct, Thickened Outline Attached -Granulation Amt Large (67-100%) Large (67-100%) -Granulation Quality Pale -Slough/Fibrin No -Necrosis Amt None Present (0 Large (67-100%) %) -Necrotic Tissue Type Adherent Slough -Structure Exposed N/A -Texture (Анна-wound Skin Appearance) Assessed Callus -Moisture (Анна-wound Skin Appearance) Assessed Dry/Scaly -Color (Анна-wound Skin Appearance) Assessed No Abnormality, Hemosiderin Staining -Temperature (Анна-wound Skin No Abnormality Appearance) (Pt Warm) -Tenderness on Palpation (Анна-wound No Yes Skin Appearance) -Ulcer Cleansing Rinsed/ Wound Cleanser Irrigated with Saline -Foul Odor after Cleansing No No -Anesthetic Used 4% Lidocaine 4% Lidocaine Solution Solution #4 left medial hallux -Current Size (cm) - Length 0.1 0.2 -Current Size (cm) - Width 0.1 0.2 -Current Size (cm) - Depth 0.1 0.2 -Total Square Cm 0.01 0.04 -Photo Taken No -Maximum Distance #2 (cm) 0.2 -Circular Undermining Yes -Exudate Amt None Present Small -Exudate Type Serosanguineous -Wound Margin Distinct, Outline Attached -Granulation Amt Large (67-100%) None Present (0 %) -Slough/Fibrin No -Necrosis Amt None Present (0 Small (1-33%) %) -Necrotic Tissue Type Adherent Slough -Structure Exposed Bone -Texture (Анна-wound Skin Appearance) Assessed Scarring -Moisture (Анна-wound Skin Appearance) Assessed Dry/Scaly -Color (Анна-wound Skin Appearance) Assessed Hemosiderin Staining -Temperature (Анна-wound Skin No Abnormality No Abnormality Appearance) (Pt Warm) (Pt Warm) -Tenderness on Palpation (Анна-wound Yes No Skin Appearance) -Ulcer Cleansing Rinsed/ Wound Cleanser Irrigated with Saline -Foul Odor after Cleansing No No -Anesthetic Used 4% Lidocaine 4% Lidocaine Solution Solution WC - Nurse 2 - General Ulcer CM Notes Start: 11/10/20 11:37 Freq: Status: Active Protocol: Activity Type Activity Date Activity User E-Sign Co-Sign Detail Recorded Client Recorded Date Recorded By Document 11/10/20 11:52 REJI [id number] 11/10/20 12:00 JF Document 11/17/20 11:24 MW [id number] 11/17/20 11:29 MW 11/10/20 11/17/20 11:52 11:24 Wound Center Nurse 2 6-left middle plantar foot -Time 11:58 11:24 -Correct Patient Yes Yes -Correct Side, Site, Position Yes Yes -Correct Procedure Yes Yes -Procedure Performed Yes Yes -Type of Procedure Debridement Debridement -Clinical Debridement Subcutaneous Subcutaneous -Tissue Removed Subcutaneous Subcutaneous -Post Debridement (cm) - Length 0.3 0.1 -Post Debridement (cm) - Width 0.3 0.1 -Post Debridement (cm) - Depth 0.2 0.1 -Total Square (Post) (cm) 0.09 0.01 -Area of Debridement (cm) - Length 0.3 0.1 -Area of Debridement (cm) - Width 0.3 0.1 -Total Square (Area) (cm) 0.09 0.01 -Tunneling No -Undermining/Tunneling No No -Circular Undermining No No -Wound/Ulcer Outcome Not Healed Not Healed -Ulcer Cleansing Rinsed/ Rinsed/ Irrigated with Irrigated with Saline Saline -Foul Odor after Cleansing No No -Bioengineered Tissue No No -Bleeding Controlled with Pressure Pressure -Offloading Yes No -Type of Offloading Surgical Shoe -Treatment Response Procedure Procedure Tolerated Well Tolerated Well -Debridement - Subq, 1st 20sq cm No Yes 5-right 1st metatarsal -Time 11:53 11:24 -Correct Patient Yes Yes -Correct Side, Site, Position Yes Yes -Correct Procedure Yes Yes -Procedure Performed Yes Yes -Type of Procedure Debridement Debridement -Clinical Debridement Subcutaneous Subcutaneous -Tissue Removed Subcutaneous Subcutaneous -Post Debridement (cm) - Length 0.3 0.2 -Post Debridement (cm) - Width 0.3 0.4 -Post Debridement (cm) - Depth 0.3 0.3 -Total Square (Post) (cm) 0.09 0.08 -Area of Debridement (cm) - Length 0.3 0.2 -Area of Debridement (cm) - Width 0.3 0.4 -Total Square (Area) (cm) 0.09 0.08 -Tunneling No No -Undermining/Tunneling No No -Circular Undermining No No -Wound/Ulcer Outcome Not Healed Not Healed -Ulcer Cleansing Rinsed/ Rinsed/ Irrigated with Irrigated with Saline Saline -Foul Odor after Cleansing No No -Bioengineered Tissue No No -Bleeding Controlled with Pressure Pressure -Offloading Yes No -Type of Offloading Surgical Shoe -Treatment Response Procedure Procedure Tolerated Well Tolerated Well -Debridement - Subq, 1st 20sq cm No No #4 left medial hallux -Time 11:54 11:24 -Correct Patient Yes Yes -Correct Side, Site, Position Yes Yes -Correct Procedure Yes Yes -Procedure Performed Yes Yes -Type of Procedure Debridement Debridement -Clinical Debridement Subcutaneous Subcutaneous -Tissue Removed Subcutaneous Subcutaneous -Post Debridement (cm) - Length 0.5 0.2 -Post Debridement (cm) - Width 0.9 0.4 -Post Debridement (cm) - Depth 0.3 0.3 -Total Square (Post) (cm) 0.45 0.08 -Area of Debridement (cm) - Length 0.5 0.2 -Area of Debridement (cm) - Width 0.9 0.4 -Total Square (Area) (cm) 0.45 0.08 -Tunneling No No -Undermining/Tunneling No No -Circular Undermining No No -Wound/Ulcer Outcome Not Healed Not Healed -Ulcer Cleansing Rinsed/ Rinsed/ Irrigated with Irrigated with Saline Saline -Foul Odor after Cleansing No No -Bioengineered Tissue No No -Bleeding Controlled with Pressure Pressure -Offloading Yes No -Type of Offloading Surgical Shoe -Treatment Response Procedure Procedure Tolerated Well Tolerated Well -Debridement - Subq, 1st 20sq cm Yes No Pain Scale: 0-10 Numeric Is Patient Pain Free? Yes Yes WC - Nurse 3 - General Ulcer D/C NN Start: 11/10/20 11:37 Freq: Status: Active Protocol: Activity Type Activity Date Activity User E-Sign Co-Sign Detail Recorded Client Recorded Date Recorded By Document 11/10/20 12:08 MW [id number] 11/10/20 12:10 MW Document 11/17/20 11:29 MW [id number] 11/17/20 11:30 MW 11/10/20 11/17/20 12:08 11:29 Wound Care Nurse 3 6-left middle plantar foot -Ulcer Cleansing Rinsed/ Rinsed/ Irrigated with Irrigated with Saline Saline -Foul Odor after Cleansing No No -Negative Pressure Wound Therapy N/A N/A -Primary Dressing Applied Fibracol Plus 4x4 -Other Dressing c.hydrogel -Primary Dressing Covered/Secured with Dry Gauze & Dry Gauze & Roll Gauze, Roll Gauze, Secured with Secured with Tape Tape -Fibracol Plus 4x4 1 5-right 1st metatarsal -Ulcer Cleansing Rinsed/ Rinsed/ Irrigated with Irrigated with Saline Saline -Foul Odor after Cleansing No No -Negative Pressure Wound Therapy N/A N/A -Other Dressing c.hydrogel fibracol -Primary Dressing Covered/Secured with Dry Gauze & Dry Gauze & Roll Gauze, Roll Gauze, Secured with Secured with Tape Tape #4 left medial hallux -Ulcer Cleansing Rinsed/ Rinsed/ Irrigated with Irrigated with Saline Saline -Foul Odor after Cleansing No No -Negative Pressure Wound Therapy N/A N/A -Other Dressing c.hydrogel fibracol -Primary Dressing Covered/Secured with Dry Gauze & Dry Gauze & Roll Gauze, Roll Gauze, Secured with Secured with Tape Tape Treatment Response Procedure Procedure Tolerated Well Tolerated Well Pain Scale: 0-10 Numeric Is Patient Pain Free? Yes Yes Teaching: Wound Center Dressing Your Wound -Person Taught Patient Patient -Teaching Method Discussion, Discussion, Demonstration Demonstration -Response to teaching Verbalize Verbalize understanding understanding WC - Visit Discharge Discharge Condition Stable Stable Ambulatory Status Ambulatory Ambulatory Transportation Private Auto Private Auto Accompanied by Medication Reconcilliation completed & No No provided to patient/care provider Clinical Summary of Care Provided Yes Yes Wound debrided: sub 1st metatarsal head Laterality: Right Type of Debridement: Excisional debridement Anesthesia Used: 4% Lidocaine Solution Depth: to bone (debrided to sub q) Percentage of wound debrided: 100 Instrument Used: #15 blade Tissue Removed: includes fibrous, devitalized, biofilm, callus and slough tissue Severity: Fat Layer Exposed Amount of bleeding with debridement: Mild Bleeding Controlled with: Pressure Patient tolerated procedure: Patient tolerated procedure well Additional Wound Wound debrided: sub 1st and 2nd metatarsal heads Laterality: Left Type of Debridement: Excisional debridement Anesthesia Used: 4% Lidocaine Solution Depth: in the subcutaneous layer (2nd metatarsal head) and to bone (1st metatarsal head) Percentage of wound debrided: 100 Instrument Used: #15 blade Tissue Removed: Includes fibrous, devitalized, biofilm, callus and slough tissue Severity: Fat Layer Exposed Amount of bleeding with debridement: Mild Bleeding Controlled with: Pressure Patient tolerated procedure: Patient tolerated procedure well Assessment/Plan Assessment/Plan (1) Ulcer of left foot with bone involvement without evidence of necrosis: CODE(S): L97.526 - Non-pressure chronic ulcer of other part of left foot with bone involvement without evidence of necrosis (2) Ulcer of right foot with bone involvement without evidence of necrosis: CODE(S): L97.516 - Non-pressure chronic ulcer of other part of right foot with bone involvement without evidence of necrosis (3) Fat pad atrophy of foot: CODE(S): L90.9 - Atrophic disorder of skin, unspecified (4) Delayed wound healing: CODE(S): T14.8XXD - Other injury of unspecified body region, subsequent encounter (5) Steroid long-term use: (6) PAD (peripheral artery disease): CODE(S): I73.9 - Peripheral vascular disease, unspecified (7) Rheumatoid arthritis: CODE(S): M06.9 - Rheumatoid arthritis, unspecified QUALIFIERS: Laterality: bilateral Rheumatoid arthritis location: foot Rheumatoid factor presence: unspecified presence Qualified Code(s): M06.9 - Rheumatoid arthritis, unspecified PLAN: Patient seen and examined. Wounds are stable. Patient noted to have relatively new wound to the left forefoot which is much improved today. Other sub 1st met head ulcers are stable. She relates more pain to feet with RA flare recently. Debridement performed as noted bilateral. Verbal consent was obtained and she tolerated this well. She was seen by Dr. Clements 11/04/2020 in which the patient reports she will be started on Bactrim. Note will be reviewed upon completion. Consultation is appreciated. She was reassured there is no purulence noted today and I do not recommend any invasive procedures. Patient also relates recent hospital admission. Awaiting due to a heart attack. Patient says she is feeling better now. Patient will need to get cardiac clearance prior to resuming HBO. Awaiting note from [facility]. Was able to get [facility] office which states she would not be cleared for hyperbarics at this time. Plantar first metatarsal wounds bilaterally has easily bone exposed. Left foot xray 05/29/2020 did not show osteomyelitis. Given clinical appearance MRI was ordered. MRI 06/25/20 showed evidence of osteomyelitis to left diaphysis of 1st metatarsal. Culture obtained 09/15/2020 demonstrated Staphylococcus Lugdenensis and Corynebacterium species. Patient relates she only has a couple days left of the antibiotic. Further cultures obtained 10/13/2020 demonstrated Staphylococcus epididymis. LEAS 06/30/20 showed moderate distal small vessel disease bilaterally at the digits. The left foot was noted to have biphasic pulses with CRUZ of 1.27 and TBI of 0.37. The left PT was noncompressible. The right foot PT and DP were noncompressible and TBI of 0.4 with triphasic and biphasic pulses. Patient had procedure with Dr Oseguera 07/21/20. Patient reports that the procedure went well. Dr. Oseguera has no further interventions planned at this time. The etiology of her ulcers appears to be from pressure at sites of metatarsal heads as there is significant fat pad atrophy. Discussed with the patient the importance of proper shoe gear with good padding to supplement lost fat pad. This is most likely due to her rheumatoid arthritis, chronic prednisone treatment may also have a role in the nonhealing of the ulcers. Offloading was discussed at length today. Patient wears tennis shoes with offloading inserts noted to bilateral shoes. Recommend patient wear surgical shoe at this time. Shoe had forefoot offloaded surgical shoes further modified today for improved comfort. Dual density offloading Plastizote liners were fabricated to take pressure off of her ulcer sites. Patient relates the plastizote is too hard and painful for her feet. She is back to using her tennis shoes with offloading pads. Discussed importance of smoking cessation, blood sugar control, weight management, offloading, proper nutrition, and hygiene to optimize healing potential. Discussed that her chronic steroid use for her RA can impact wound healing as well as impact her body's ability to mount an immune response. Also her vascular disease may also be playing into her poor ability to heal. There is suspicion that osteomyelitis infection may still remain given factors that may be impeding wound healing as well as chronic bone exposure to bilateral 1st metatarsals now through the wounds. Upon previous discussion it was noted that the patient did not wish to undergo bone debridement given the extent of osteomyelitis per MRI as well as her already established history of poor wound healing. It was decided that it was not worth the risk of potentially creating a larger wound that potentially more bacteria could then use to infect the wound. The remaining bone exposure puts patient at clinical osteomyelitis since she has been seen. Patient to see Dr. Steinberg for HBO evaluation. This was given prior to patient's recent heart attack and hospital admission. Patient will need to get cardiac clearance prior to being approved for HBO. This was not given at this time. Encouraged protein rich diet and protein supplements. Advised to call with questions or concerns. All questions answered. Continue wound care to foot ulcerations daily. To use fibracol. Patient was given Tubigrip's for compression and edema control Follow-up in 3 week This note was generated with [employer] dictation software. It may contain incorrect words, spelling, and punctuation that were not noted in checking the note before signing.
== END 2020-12-05 23:59 ==
LOC: WC 11:15
PROVIDERS: PCP Physician Assistant; Visit Provider Podiatrist Foot & Ankle Surgery
DX: L97.526 Non-pressure chronic ulcer of other part of left foot with bone involvement without evidence of necrosis (principal); L97.522 Non-pressure chronic ulcer of other part of left foot with fat layer exposed; L97.512 Non-pressure chronic ulcer of other part of right foot with fat layer exposed; M06.9 Rheumatoid arthritis, unspecified; I73.9 Peripheral vascular disease, unspecified; Z79.52 Long term (current) use of systemic steroids
CPT/HCPCS: 11042; 36415; 80048; 85027; 85652

== ENCOUNTER 2020-11-17 11:49 | Outpatient (RCR) | payer MEDICARE, SELFPAY ==
[2020-11-17 10:14] VITALS: BMI 18.6
[2020-11-17 13:02] LABS: Anion Gap 4 (5-15); BUN 24 mg/dL (7-18); Calcium,Total 8.8 mg/dL (8.5-10.1); Chloride 101 mmol/L (98-107); EST Glomerular Filtration Rate 36 mL/min (>60); Est Glom Filt Rate - Afr Amer 43 mL/min (>60); Glucose 128 mg/dL (74-106); Potassium 5.1 mmol/L (3.5-5.1); Sodium Level 134 mmol/L (136-145)
== END 2020-11-17 18:00 ==
LOC: LAB 11:49
PROVIDERS: PCP Physician Assistant; Referring Provider Internal Medicine Infectious Disease; Visit Provider Internal Medicine Infectious Disease
DX: M86.9 Osteomyelitis, unspecified (principal); L97.526 Non-pressure chronic ulcer of other part of left foot with bone involvement without evidence of necrosis; L97.516 Non-pressure chronic ulcer of other part of right foot with bone involvement without evidence of necrosis; L90.9 Atrophic disorder of skin, unspecified; I73.9 Peripheral vascular disease, unspecified; M06.9 Rheumatoid arthritis, unspecified; T14.8XXD Other injury of unspecified body region, subsequent encounter
CPT/HCPCS: 11042; 36415; 80048

== ENCOUNTER 2020-12-08 11:01 | Outpatient (RCR) | payer MEDICARE, SELFPAY ==
[2020-12-08 09:56] VITALS: BMI 18.6
[2020-12-08 11:52] LABS: Anion Gap 7 (5-15); BUN 40 mg/dL (7-18); BUN/Creat Ratio 22.6 RATIO (10-20); Calcium,Total 8.6 mg/dL (8.5-10.1); Chloride 103 mmol/L (98-107); Creatinine, Serum 1.77 mg/dL (0.55-1.02); EST Glomerular Filtration Rate 30 mL/min (>60); Est Glom Filt Rate - Afr Amer 36 mL/min (>60); Glucose 106 mg/dL (74-106); Potassium 4.9 mmol/L (3.5-5.1); Sodium Level 136 mmol/L (136-145)
== END 2020-12-08 18:00 | disposition home or self-care (01) ==
LOC: LAB 11:01
PROVIDERS: PCP Physician Assistant; Referring Provider Internal Medicine Infectious Disease; Visit Provider Internal Medicine Infectious Disease
DX: M86.9 Osteomyelitis, unspecified (principal)
CPT/HCPCS: 36415; 80048

== ENCOUNTER 2021-01-05 09:45 | Outpatient (RCR) | payer MEDICARE, SELFPAY ==
[2020-12-06 00:25] VITALS: BP 123/56; PULSE 78; RESP 18; TEMP 36.8
[2020-12-08 09:56] VITALS: BP 106/50; PULSE 64; RESP 20; TEMP 36.4
--- NOTE | 2020-12-08 14:46 | PCM.WC.PN ---
History of Present Illness Date of Service: 12/08/20 Chief Complaint: Bilateral 1st metatarsal ulceration with chronic refractory osteomyelitis of the left first metatarsal. sub metatarsal head ulcer right History of Wound: Kylah is a 75-year-old female who was referred here for treatment of an ulcer at the base of her great toe at her metatarsal head from Dr. Poe, her publication specialist. She has been receiving treatment to this area for the last [address] Poe has attempted to debride and close it surgically with sutures but it reopened and it hasn't healed. She has a history of ulcerations underneath her big toe on both feet. 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 Patient has had a recent culture on 05/11/20, positive for Staphylococcus lugendenosis. Another culture was taken which demonstrated staph epididymis. With most recent culture taken 07/01/2020 with no growth seen. The patient has had vascular studies on 06/30/20 showed moderate distal small vessel disease bilaterally at the digits with some non compressible vessels. Patient saw her vascular surgeon, Dr Oseguera, who did intervention on the patient on 07/21/20. Dr. Oseguera has no further interventions planned at this time. She had MRI on 06/25/20 which showed osteomyelitis to left 1st metatarsal. Patient saw Dr Clements for treatment The patient is noted to be on prednisone and methotrexate for her rheumatoid arthritis. These are acknowledged to be possible inhibitors to wound healing. Patient noted to have painful feet due to her rheumatoid arthritis. Patient is also noted to have had recent heart attack and has been started on blood thinners for this. Patient relates that she goes to special shoe store to get offloading insert added to her shoes to help prevent callus buildup. Patient relates addition of pads to her slippers for home use has helped. She relates not being able to tolerate offloading surgical shoes Progress of Wound: Stable Subjective Subjective Patient seen and examined resting comfortably. Patient denies any new pedal complaints. Patient denies any nausea, fever, chills, chest pain, shortness of breath, cough, streaking, purulence, vomiting. Objective Data Objective Data Vital Signs: Vital Signs Temp Pulse Resp BP 97.6 F L 64 20 H 106/50 L 12/08/20 09:56 12/08/20 09:56 12/08/20 09:56 12/08/20 09:56 Weight: 46.266 kg Body Mass Index (BMI) 18.6 Physical Exam Narrative Const alert and no apparent distress General Appearance: cooperative and comfortable Patient has overall frail appearance Lymph Lymphatic: no lymphedema noted Resp normal respiratory effort Effort and Inspection: able to speak in complete sentences Extremity no calf tenderness, negative yasmine and baker sign No lower extremity edema General Extremity: tenderness to palpation palpable metatarsal heads. There is Significant fat pad atrophy noted with easily palpable metatarsal heads 1 through 5 bilaterally. Negative for clubbing or cyanosis or ecchymosis or erythema Vasc Peripheral Pulses: posterior tibial pulses absent and dorsalis pedis pulses present but diminished, normal capillary refill, no acute ischemic skin changes noted, cool temperature Skin General Skin Exam: dry flaky atrophic skin to entire bilateral lower extremities, absent hair growth noted; Negative for ecchymosis, eschar, pallor, rashes. Patient skin in general is in very poor condition especially since starting blood thinners. Her arms are noted to be extremely dark and discolored to her entire forearms. Wound Narrative: ulcers noted to plantar first metatarsal head bilaterally and left sub second and new wound subfourth metatarsal head site also No malodor, erythema, purulence, streaking, fluctuation, crepitus. Skin is atrophic and hairless. Granular base. Wounds probe to bone bilaterally especially to someone wounds. Scant Serosanguineous drainage noted to bilateral wounds. There is significant amount of fat pad atrophy noted to bilateral feet secondary to patient's rheumatoid arthritis. There is noted callus buildup within the ulceration site with and overlying the wounds. Peripheral callous noted to all ulcer sites. Sub 2nd metatarsal head ulceration is mostly healed. After debridement of left 4th metatarsal head callus site is noted to have ulcerated Callus tissue noted to metatarsal heads plantarly left more so than right. Pain to palpation of plantar forefoot bilaterally Neuro Gait (Neuro): heel to toe Sensory Exam: extremities light-touch: Intact MSK Motor Exam: strength 5/5 throughout, ROM to foot and ankle joints within normal limits, significant fat pad atrophy with very easily palpable metatarsal heads bilaterally, muscle wasting noted Psych Appearance: appropriate Attitude: calm Debridement Note Debridement Note Post-Debridement Measurements and Additional Note: Post-Debridement Measurements/Treatment - Nurse 1 - General Ulcer Assessment Start: 12/08/20 09:54 Freq: Status: Active Protocol: GEORGE Activity Type Activity Date Activity User E-Sign Co-Sign Detail Recorded Client Recorded Date Recorded By Document 12/08/20 09:56 DL [id number] 12/08/20 10:07 DL 12/08/20 09:56 WC - Today's Visit Information Type of service Follow-up Visit (Physician/MANAGER MONEY ) Arrival Mode Ambulatory Transfer Assistance None Patient Requires Transmission-Based No Precautions Height and Weight Body Mass Index (BMI) 18.6 BMI Classification Normal Vital Signs Temperature (97.8 F-99.1 F) 97.6 F L Temperature Source Temporal Pulse Rate (60-100) 64 Pulse Location Monitor Respiratory Rate (12-18) 20 H Respiratory rate source Observation Blood Pressure (90/60-120/80) 106/50 L Blood Pressure Mean (mm Hg) 68 Source Monitor History Since Last Visit- (Skip if this is Patient's initial visit) Have you changed medications since your No last visit? Any new allergies or adverse reactions No Had a fall/change in ADL's that may No increase risk of falls Signs or symptoms of abuse and/or No neglect since last visit Have you been in the hospital since your No last visit? Has dressing in place as prescribed Yes Has compression in place as prescribed N/A Experienced any changes in pain level or No management Pain Scale: 0-10 Numeric Is Patient Pain Free? Yes - Nurse 1 - General Ulcer Measurement Start: 12/08/20 09:54 Freq: Status: Active Protocol: Activity Type Activity Date Activity User E-Sign Co-Sign Detail Recorded Client Recorded Date Recorded By Document 12/08/20 09:56 DL [id number] 12/08/20 10:07 DL 12/08/20 09:56 Wound Center Nurse 1 6-left middle plantar foot -Current Size (cm) - Length 0.1 -Current Size (cm) - Width 0.1 -Current Size (cm) - Depth 0.1 -Total Square Cm 0.01 -Photo Taken No -Exudate Amt None Present -Wound Margin Thickened -Granulation Amt Large (67-100%) -Granulation Quality Pale -Necrosis Amt Small (1-33%) -Necrotic Tissue Type Adherent Slough -Structure Exposed N/A -Texture (Анна-wound Skin Appearance) Callus,Scarring -Moisture (Анна-wound Skin Appearance) No Abnormality -Color (Анна-wound Skin Appearance) No Abnormality -Temperature (Анна-wound Skin No Abnormality Appearance) (Pt Warm) -Tenderness on Palpation (Анна-wound No Skin Appearance) -Ulcer Cleansing Wound Cleanser -Foul Odor after Cleansing No -Anesthetic Used 4% Lidocaine Solution 5-right 1st metatarsal -Current Size (cm) - Length 0.1 -Current Size (cm) - Width 0.1 -Current Size (cm) - Depth 0.1 -Total Square Cm 0.01 -Photo Taken No -Exudate Amt None Present -Wound Margin Thickened -Granulation Amt None Present (0 %) -Necrosis Amt Small (1-33%) -Necrotic Tissue Type Eschar -Structure Exposed N/A -Texture (Анна-wound Skin Appearance) Callus,Scarring -Moisture (Анна-wound Skin Appearance) No Abnormality -Temperature (Анна-wound Skin No Abnormality Appearance) (Pt Warm) -Tenderness on Palpation (Анна-wound No Skin Appearance) -Ulcer Cleansing Wound Cleanser -Foul Odor after Cleansing No -Anesthetic Used 4% Lidocaine Solution #4 left medial hallux -Current Size (cm) - Length 0.2 -Current Size (cm) - Width 0.2 -Current Size (cm) - Depth 0.2 -Total Square Cm 0.04 -Photo Taken No -Exudate Amt Medium -Exudate Type Yellow/Green -Wound Margin Distinct, Outline Attached -Granulation Amt None Present (0 %) -Necrosis Amt Small (1-33%) -Necrotic Tissue Type Adherent Slough -Structure Exposed Bone -Texture (Анна-wound Skin Appearance) Callus,Scarring -Moisture (Анна-wound Skin Appearance) No Abnormality -Color (Анна-wound Skin Appearance) No Abnormality -Temperature (Анна-wound Skin No Abnormality Appearance) (Pt Warm) -Tenderness on Palpation (Анна-wound No Skin Appearance) -Ulcer Cleansing Wound Cleanser -Foul Odor after Cleansing Yes, Due to Product Use -Anesthetic Used 4% Lidocaine Solution WC - Nurse 2 - General Ulcer CM Notes Start: 12/08/20 09:54 Freq: Status: Active Protocol: Activity Type Activity Date Activity User E-Sign Co-Sign Detail Recorded Client Recorded Date Recorded By Document 12/08/20 10:15 REJI [id number] 12/08/20 10:31 REJI 12/08/20 10:15 Wound Center Nurse 2 7-left 4th metatarsal foot -Time 10:25 -Correct Patient Yes -Correct Side, Site, Position Yes -Correct Procedure Yes -Procedure Performed Yes -Type of Procedure Debridement -Clinical Debridement Subcutaneous -Tissue Removed Subcutaneous -Post Debridement (cm) - Length 0.1 -Post Debridement (cm) - Width 0.3 -Post Debridement (cm) - Depth 0.2 -Total Square (Post) (cm) 0.03 -Area of Debridement (cm) - Length 0.1 -Area of Debridement (cm) - Width 0.3 -Total Square (Area) (cm) 0.03 -Tunneling No -Undermining/Tunneling No -Circular Undermining No -Wound/Ulcer Outcome Not Healed -Ulcer Cleansing Rinsed/ Irrigated with Saline -Foul Odor after Cleansing No -Bioengineered Tissue No -Bleeding Controlled with Pressure -Offloading No -Treatment Response Procedure Tolerated Well -Debridement - Subq, 1st 20sq cm No 6-left middle plantar foot -Time 10:16 -Correct Patient Yes -Correct Side, Site, Position Yes -Correct Procedure Yes -Procedure Performed Yes -Type of Procedure Debridement -Clinical Debridement Subcutaneous -Tissue Removed Subcutaneous -Post Debridement (cm) - Length 0.2 -Post Debridement (cm) - Width 0.2 -Post Debridement (cm) - Depth 0.4 -Total Square (Post) (cm) 0.04 -Area of Debridement (cm) - Length 0.2 -Area of Debridement (cm) - Width 0.2 -Total Square (Area) (cm) 0.04 -Tunneling No -Undermining/Tunneling No -Circular Undermining No -Wound/Ulcer Outcome Not Healed -Ulcer Cleansing Rinsed/ Irrigated with Saline -Foul Odor after Cleansing No -Bioengineered Tissue No -Bleeding Controlled with Pressure -Offloading No -Treatment Response Procedure Tolerated Well -Debridement - Subq, 1st 20sq cm Yes 5-right 1st metatarsal -Time 10:17 -Correct Patient Yes -Correct Side, Site, Position Yes -Correct Procedure Yes -Procedure Performed Yes -Type of Procedure Debridement -Clinical Debridement Subcutaneous -Tissue Removed Subcutaneous -Post Debridement (cm) - Length 0.3 -Post Debridement (cm) - Width 0.3 -Post Debridement (cm) - Depth 0.3 -Total Square (Post) (cm) 0.09 -Area of Debridement (cm) - Length 0.3 -Area of Debridement (cm) - Width 0.3 -Total Square (Area) (cm) 0.09 -Tunneling No -Undermining/Tunneling No -Circular Undermining No -Wound/Ulcer Outcome Not Healed -Ulcer Cleansing Rinsed/ Irrigated with Saline -Foul Odor after Cleansing Yes, Due to Product Use -Bioengineered Tissue No -Bleeding Controlled with Pressure -Offloading No -Treatment Response Procedure Tolerated Well -Debridement - Subq, 1st 20sq cm No #4 left medial hallux -Time 10:17 -Correct Patient Yes -Correct Side, Site, Position Yes -Correct Procedure Yes -Procedure Performed Yes -Type of Procedure Debridement -Clinical Debridement Subcutaneous -Tissue Removed Subcutaneous -Post Debridement (cm) - Length 0.5 -Post Debridement (cm) - Width 0.7 -Post Debridement (cm) - Depth 0.2 -Total Square (Post) (cm) 0.35 -Area of Debridement (cm) - Length 0.5 -Area of Debridement (cm) - Width 0.7 -Total Square (Area) (cm) 0.35 -Tunneling No -Undermining/Tunneling No -Circular Undermining No -Wound/Ulcer Outcome Not Healed -Ulcer Cleansing Rinsed/ Irrigated with Saline -Foul Odor after Cleansing No -Bioengineered Tissue No -Bleeding Controlled with Pressure -Offloading No -Treatment Response Procedure Tolerated Well -Debridement - Subq, 1st 20sq cm No Pain Scale: 0-10 Numeric Is Patient Pain Free? Yes WC - Nurse 3 - General Ulcer D/C NN Start: 12/08/20 09:54 Freq: Status: Active Protocol: Activity Type Activity Date Activity User E-Sign Co-Sign Detail Recorded Client Recorded Date Recorded By Document 12/08/20 10:46 TARI [id number] 12/08/20 10:49 DL 12/08/20 10:46 Wound Care Nurse 3 7-left 4th metatarsal foot -Ulcer Cleansing Rinsed/ Irrigated with Saline -Foul Odor after Cleansing No -Primary Dressing Applied Fibracol Plus 4x4 -Primary Dressing Covered/Secured with Dry Gauze & Roll Gauze, Secured with Tape -Fibracol Plus 4x4 1 6-left middle plantar foot -Ulcer Cleansing Wound Cleanser -Foul Odor after Cleansing No -Other Dressing fibracol -Primary Dressing Covered/Secured with Dry Gauze & Roll Gauze, Secured with Tape 5-right 1st metatarsal -Foul Odor after Cleansing No -Other Dressing fibracol -Primary Dressing Covered/Secured with Dry Gauze & Roll Gauze, Secured with Tape #4 left medial hallux -Ulcer Cleansing Rinsed/ Irrigated with Saline -Negative Pressure Wound Therapy Discontinue -Primary Dressing Covered/Secured with Dry Gauze & Roll Gauze, Secured with Tape -Other Covering fibracol Right -Tubular Bandage Single Layer -Size of Tubigrip Used Size C -Size C ($) 1 Treatment Response Procedure Tolerated Well Pain Scale: 0-10 Numeric Is Patient Pain Free? Yes WC - Visit Discharge Discharge Condition Stable Ambulatory Status Ambulatory Transportation Private Auto Notes: Pt refused double tubigrips, allowed single. Unable to apply to RLE d/ t vasc issued treated by her PCP. Wound debrided: Subone 2 and 4 metatarsal heads Laterality: Left Type of Debridement: Excisional debridement Anesthesia Used: 4% Lidocaine Solution Depth: to bone (Debrided to subcu) Percentage of wound debrided: 100 Instrument Used: 3mm curette Tissue Removed: includes fibrous, devitalized, biofilm, callus and slough tissue Severity: Necrosis of Bone Amount of bleeding with debridement: Mild Bleeding Controlled with: Pressure Patient tolerated procedure: Patient tolerated procedure well Additional Wound Wound debrided: Sub one metatarsal head Laterality: Right Type of Debridement: Excisional debridement Anesthesia Used: 4% Lidocaine Solution Depth: to bone (Debrided to subcu) Percentage of wound debrided: 100 Instrument Used: 3mm curette Tissue Removed: Includes fibrous, devitalized, biofilm, callus and slough tissue Severity: Necrosis of Bone Amount of bleeding with debridement: Mild Bleeding Controlled with: Pressure Patient tolerated procedure: Patient tolerated procedure well Assessment/Plan Assessment/Plan (1) Ulcer of left foot with bone involvement without evidence of necrosis: CODE(S): L97.526 - Non-pressure chronic ulcer of other part of left foot with bone involvement without evidence of necrosis (2) Ulcer of right foot with bone involvement without evidence of necrosis: CODE(S): L97.516 - Non-pressure chronic ulcer of other part of right foot with bone involvement without evidence of necrosis (3) Pain in right foot: CODE(S): M79.671 - Pain in right foot (4) Left foot pain: CODE(S): M79.672 - Pain in left foot (5) Fat pad atrophy of foot: CODE(S): L90.9 - Atrophic disorder of skin, unspecified (6) Delayed wound healing: CODE(S): T14.8XXD - Other injury of unspecified body region, subsequent encounter (7) Steroid long-term use: (8) PAD (peripheral artery disease): CODE(S): I73.9 - Peripheral vascular disease, unspecified (9) Corns and callosities: CODE(S): L84 - Corns and callosities (10) Rheumatoid arthritis: CODE(S): M06.9 - Rheumatoid arthritis, unspecified QUALIFIERS: Rheumatoid arthritis location: foot Rheumatoid factor presence: unspecified presence Laterality: bilateral Qualified Code(s): M06.9 - Rheumatoid arthritis, unspecified PLAN: Patient seen and examined. Wounds are stable. Patient noted to have new wound subfourth metatarsal head underneath the callus. This is a recurrent wound as per site as well. Discussed with patient going a more palliative wound care route with her chronic nonhealing ulcerations especially given significant comorbidities and treatment of healing with medications Debridement performed as noted bilateral. Verbal consent was obtained and she tolerated this well. She was seen by Dr. Clements 11/04/2020 in which the patient reports she will be started on Bactrim. Note will be reviewed upon completion. Consultation is appreciated. She was reassured there is no purulence noted today and I do not recommend any invasive procedures. Left foot xray 05/29/2020 did not show osteomyelitis. Given clinical appearance MRI was ordered. MRI 06/25/20 showed evidence of osteomyelitis to left diaphysis of 1st metatarsal. Culture obtained 09/15/2020 demonstrated Staphylococcus Lugdenensis and Corynebacterium species. Patient relates she only has a couple days left of the antibiotic. Further cultures obtained 10/13/2020 demonstrated Staphylococcus epididymis. LEAS 06/30/20 showed moderate distal small vessel disease bilaterally at the digits. The left foot was noted to have biphasic pulses with CRUZ of 1.27 and TBI of 0.37. The left PT was noncompressible. The right foot PT and DP were noncompressible and TBI of 0.4 with triphasic and biphasic pulses. Patient had procedure with Dr Oseguera 07/21/20. Patient reports that the procedure went well. Dr. Oseguera has no further interventions planned at this time. The etiology of her ulcers appears to be from pressure at sites of metatarsal heads as there is significant fat pad atrophy. Discussed with the patient the importance of proper shoe gear with good padding to supplement lost fat pad. This is most likely due to her rheumatoid arthritis, chronic prednisone treatment may also have a role in the nonhealing of the ulcers. Offloading was discussed at length today. Patient wears tennis shoes with offloading inserts noted to bilateral shoes. Recommend patient wear surgical shoe at this time. Patient relates that she is not able to tolerate the hardness of the surgical shoes and has gone back to wearing her tennis shoes with the pads in them. Again discussed possibility of offloaded custom inserts. Discussed that this could be done at the office but they would not be covered by insurance. She would like to move forward with them she could call the office to schedule appointment for casting. Discussed importance of smoking cessation, blood sugar control, weight management, offloading, proper nutrition, and hygiene to optimize healing potential. Discussed that her chronic steroid use for her RA can impact wound healing as well as impact her body's ability to mount an immune response. Also her vascular disease may also be playing into her poor ability to heal. There is suspicion that osteomyelitis infection may still remain given factors that may be impeding wound healing as well as chronic bone exposure to bilateral 1st metatarsals now through the wounds. Upon previous discussion it was noted that the patient did not wish to undergo bone debridement given the extent of osteomyelitis per MRI as well as her already established history of poor wound healing. It was decided that it was not worth the risk of potentially creating a larger wound that potentially more bacteria could then get into to infect the wound. The remaining bone exposure puts patient at clinical osteomyelitis since she has been seen. Patient saw Dr. Steinberg for HBO evaluation. This was given prior to patient's recent heart attack and hospital admission. Patient will need to get cardiac clearance prior to being approved for HBO. This was not given at this time. We will potentially reconsider HBO therapy in the future if ever given cardiac clearance Encouraged protein rich diet and protein supplements. Discussed Vick supplementation. Patient is overall frail appearance with muscle atrophy noted. All questions answered. Continue wound care to foot ulcerations daily. To use fibracol. To moisturize the legs and feet daily. Patient was given Tubigrip's for compression and edema control Follow-up in 2 weeks This note was generated with [employer] dictation software. It may contain incorrect words, spelling, and punctuation that were not noted in checking the note before signing.
[2020-12-22 09:41] VITALS: BP 132/72; PULSE 72; TEMP 36.2; BMI 18.6
--- NOTE | 2020-12-22 10:16 | PCM.WC.PN ---
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 sub metatarsal head ulcer right History of Wound: Kylah is a 75-year-old female who was referred here for treatment of an ulcer at the base of her great toe at her metatarsal head from Dr. Poe, her continuity editor. She has been receiving treatment to this area for the last [address] Poe has attempted to debride and close it surgically with sutures but it reopened and it hasn't healed. She has a history of ulcerations underneath her big toe on both feet. 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 Patient has had a recent culture on 05/11/20, positive for Staphylococcus lugendenosis. Another culture was taken which demonstrated staph epididymis. With most recent culture taken 07/01/2020 with no growth seen. The patient has had vascular studies on 06/30/20 showed moderate distal small vessel disease bilaterally at the digits with some non compressible vessels. Patient saw her vascular surgeon, Dr Oseguera, who did intervention on the patient on 07/21/20. Dr. Oseguera has no further interventions planned at this time. She had MRI on 06/25/20 which showed osteomyelitis to left 1st metatarsal. Patient saw Dr Clements for treatment The patient is noted to be on prednisone and methotrexate for her rheumatoid arthritis. These are acknowledged to be possible inhibitors to wound healing. Patient noted to have painful feet due to her rheumatoid arthritis. Patient is also noted to have had recent heart attack and has been started on blood thinners for this. Patient relates that she goes to special shoe store to get offloading insert added to her shoes to help prevent callus buildup. Patient relates addition of pads to her slippers for home use has helped. She relates not being able to tolerate offloading surgical shoes Progress of Wound: Improved Subjective Subjective Patient seen and examined resting comfortably. Patient denies any new pedal complaints. Patient denies any nausea, fever, chills, chest pain, shortness of breath, cough, streaking, purulence, vomiting. Objective Data Objective Data Vital Signs: Vital Signs Temp Pulse Resp BP 97.1 F L 72 20 H 132/72 H 12/22/20 09:41 12/22/20 09:41 12/08/20 09:56 12/22/20 09:41 Weight: 46.266 kg Body Mass Index (BMI) 18.6 Physical Exam Narrative Const alert and no apparent distress General Appearance: cooperative and comfortable Patient has overall frail appearance Lymph Lymphatic: no lymphedema noted Resp normal respiratory effort Effort and Inspection: able to speak in complete sentences Extremity no calf tenderness, negative yasmine and baker sign No lower extremity edema General Extremity: tenderness to palpation palpable metatarsal heads. There is Significant fat pad atrophy noted with easily palpable metatarsal heads 1 through 5 bilaterally. Negative for clubbing or cyanosis or ecchymosis or erythema Vasc Peripheral Pulses: posterior tibial pulses absent and dorsalis pedis pulses present but diminished, normal capillary refill, no acute ischemic skin changes noted, cool temperature Skin General Skin Exam: dry flaky atrophic skin to entire bilateral lower extremities, absent hair growth noted; Negative for ecchymosis, eschar, pallor, rashes. Patient skin in general is in very poor condition especially since starting blood thinners. Her arms are noted to be extremely dark and discolored to her entire forearms. Wound Narrative: ulcers noted to plantar first metatarsal head bilaterally and left sub second and sub fourth metatarsal head. There is preulcerative area noted to plantar lateral fifth metatarsal head left. Improvement noted to right side of first metatarsal head as it no longer probes to bone. There is worsening of the left subfirst metatarsal head with expanding wound and more bone exposure. Ulceration sub 2 and 4 left foot are stable. No malodor, erythema, purulence, streaking, fluctuation, crepitus. Skin is atrophic and hairless. Granular base. Wounds probe to bone left especially to subfirst metatarsal head wounds. Scant Serosanguineous drainage noted to bilateral wounds. There is significant amount of fat pad atrophy noted to bilateral feet secondary to patient's rheumatoid arthritis. There is noted callus buildup within the ulceration site with and overlying the wounds. Peripheral callous noted to all ulcer sites. Plantar lateral fifth metatarsal head left foot noted to have preulcerative area with surrounding erythema noted. No open wounds at this time. No signs of infection. Callus tissue noted to metatarsal heads plantarly left more so than right. Pain to palpation of plantar forefoot bilaterally Neuro Gait (Neuro): heel to toe Sensory Exam: extremities light-touch: Intact MSK Motor Exam: strength 5/5 throughout, ROM to foot and ankle joints within normal limits, significant fat pad atrophy with very easily palpable metatarsal heads bilaterally, muscle wasting noted Psych Appearance: appropriate Attitude: calm Debridement Note Debridement Note Post-Debridement Measurements and Additional Note: Post-Debridement Measurements/Treatment WC - Nurse 1 - General Ulcer Assessment Start: 12/08/20 09:54 Freq: Status: Active Protocol: LOWEXJosephine Activity Type Activity Date Activity User E-Sign Co-Sign Detail Recorded Client Recorded Date Recorded By Document 12/08/20 09:56 DL [id number] 12/08/20 10:07 DL Document 12/22/20 09:41 KR Desktop 12/22/20 09:44 KR 12/08/20 12/22/20 09:56 09:41 - Today's Visit Information Type of service Follow-up Visit Follow-up Visit (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 (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 ) ) Arrival Mode Ambulatory Ambulatory Transfer Assistance None Patient Identification Verified (Name & Yes ) Patient Requires Transmission-Based No Precautions Height and Weight Body Mass Index (BMI) 18.6 18.6 BMI Classification Normal Normal Vital Signs Temperature (97.8 F-99.1 F) 97.6 F L 97.1 F L Temperature Source Temporal Temporal Pulse Rate (60-100) 64 72 Pulse Location Monitor Monitor Respiratory Rate (12-18) 20 H Respiratory rate source Observation Blood Pressure (90/60-120/80) 106/50 L 132/72 H Blood Pressure Mean (mm Hg) 68 92 Source Monitor Monitor Position Sitting Blood Pressure Location Left Arm History Since Last Visit- (Skip if this is Patient's initial visit) Have you changed medications since your No No last visit? Any new allergies or adverse reactions No No Had a fall/change in ADL's that may No No increase risk of falls Signs or symptoms of abuse and/or No No neglect since last visit Have you been in the hospital since your No last visit? Has dressing in place as prescribed Yes Yes Has compression in place as prescribed N/A Yes Has offloadiing in place as prescribed N/A Experienced any changes in pain level or No No management Left Footwear Regular Shoe Right Footwear Regular Shoe Pain Scale: 0-10 Numeric Is Patient Pain Free? Yes Yes WC - Nurse 1 - General Ulcer Measurement Start: 12/08/20 09:54 Freq: Status: Active Protocol: Activity Type Activity Date Activity User E-Sign Co-Sign Detail Recorded Client Recorded Date Recorded By Document 12/08/20 09:56 DL [id number] 12/08/20 10:07 DL Document 12/22/20 09:41 KR Desktop 12/22/20 09:44 KR 12/08/20 12/22/20 09:56 09:41 Wound Center Nurse 1 7-left 4th metatarsal foot -Current Size (cm) - Length 0.1 -Current Size (cm) - Width 0.1 -Current Size (cm) - Depth 0.1 -Total Square Cm 0.01 -Exudate Amt Small -Exudate Type Serosanguineous -Wound Margin Distinct, Outline Attached -Granulation Amt Small (1-33%) -Granulation Quality Zenda -Necrosis Amt None Present (0 %) -Texture (Анна-wound Skin Appearance) Assessed, Scarring -Moisture (Анна-wound Skin Appearance) No Abnormality, Assessed -Color (Анна-wound Skin Appearance) No Abnormality, Assessed -Temperature (Анна-wound Skin No Abnormality Appearance) (Pt Warm) -Tenderness on Palpation (Анна-wound No Skin Appearance) -Ulcer Cleansing Rinsed/ Irrigated with Saline -Foul Odor after Cleansing No -Anesthetic Used 4% Lidocaine Solution 6-left middle plantar foot -Current Size (cm) - Length 0.1 0.2 -Current Size (cm) - Width 0.1 0.3 -Current Size (cm) - Depth 0.1 0.2 -Total Square Cm 0.01 0.06 -Photo Taken No -Exudate Amt None Present Small -Exudate Type Serosanguineous -Wound Margin Thickened Distinct, Outline Attached -Granulation Amt Large (67-100%) -Granulation Quality Pale -Necrosis Amt Small (1-33%) Small (1-33%) -Necrotic Tissue Type Adherent Slough Adherent Slough -Structure Exposed N/A -Texture (Анна-wound Skin Appearance) Callus,Scarring Assessed, Scarring -Moisture (Анна-wound Skin Appearance) No Abnormality No Abnormality, Assessed -Color (Анна-wound Skin Appearance) No Abnormality No Abnormality, Assessed -Temperature (Анна-wound Skin No Abnormality No Abnormality Appearance) (Pt Warm) (Pt Warm) -Tenderness on Palpation (Анна-wound No No Skin Appearance) -Ulcer Cleansing Wound Cleanser Rinsed/ Irrigated with Saline -Foul Odor after Cleansing No No -Anesthetic Used 4% Lidocaine 4% Lidocaine Solution Solution 5-right 1st metatarsal -Current Size (cm) - Length 0.1 0.1 -Current Size (cm) - Width 0.1 0.1 -Current Size (cm) - Depth 0.1 0.1 -Total Square Cm 0.01 0.01 -Photo Taken No -Exudate Amt None Present None Present -Wound Margin Thickened Distinct, Outline Attached -Granulation Amt None Present (0 Small (1-33%) %) -Granulation Quality Red -Necrosis Amt Small (1-33%) None Present (0 %) -Necrotic Tissue Type Eschar -Structure Exposed N/A -Texture (Анна-wound Skin Appearance) Callus,Scarring Assessed, Scarring -Moisture (Анна-wound Skin Appearance) No Abnormality No Abnormality, Assessed -Color (Анна-wound Skin Appearance) No Abnormality, Assessed -Temperature (Анна-wound Skin No Abnormality No Abnormality Appearance) (Pt Warm) (Pt Warm) -Tenderness on Palpation (Анна-wound No No Skin Appearance) -Ulcer Cleansing Wound Cleanser Rinsed/ Irrigated with Saline -Foul Odor after Cleansing No No -Anesthetic Used 4% Lidocaine 4% Lidocaine Solution Solution #4 left medial hallux -Current Size (cm) - Length 0.2 0.2 -Current Size (cm) - Width 0.2 0.2 -Current Size (cm) - Depth 0.2 0.1 -Total Square Cm 0.04 0.04 -Photo Taken No -Exudate Amt Medium None Present -Exudate Type Yellow/Green -Wound Margin Distinct, Distinct, Outline Outline Attached Attached -Granulation Amt None Present (0 Small (1-33%) %) -Granulation Quality Red -Necrosis Amt Small (1-33%) None Present (0 %) -Necrotic Tissue Type Adherent Slough -Structure Exposed Bone -Texture (Анна-wound Skin Appearance) Callus,Scarring Assessed, Scarring -Moisture (Анна-wound Skin Appearance) No Abnormality No Abnormality, Assessed -Color (Анна-wound Skin Appearance) No Abnormality No Abnormality, Assessed -Temperature (Анна-wound Skin No Abnormality No Abnormality Appearance) (Pt Warm) (Pt Warm) -Tenderness on Palpation (Анна-wound No Skin Appearance) -Ulcer Cleansing Wound Cleanser Rinsed/ Irrigated with Saline -Foul Odor after Cleansing Yes, Due to Product Use -Anesthetic Used 4% Lidocaine 4% Lidocaine Solution Solution WC - Nurse 2 - General Ulcer CM Notes Start: 12/08/20 09:54 Freq: Status: Active Protocol: Activity Type Activity Date Activity User E-Sign Co-Sign Detail Recorded Client Recorded Date Recorded By Document 12/08/20 10:15 [id number] 12/08/20 10:31 Document 12/22/20 09:53 [id number] 12/22/20 10:01 12/08/20 12/22/20 10:15 09:53 Wound Center Nurse 2 7-left 4th metatarsal foot -Time 10:25 09:53 -Correct Patient Yes Yes -Correct Side, Site, Position Yes Yes -Correct Procedure Yes Yes -Procedure Performed Yes Yes -Type of Procedure Debridement Debridement -Clinical Debridement Subcutaneous Subcutaneous -Tissue Removed Subcutaneous Subcutaneous -Post Debridement (cm) - Length 0.1 0.3 -Post Debridement (cm) - Width 0.3 0.3 -Post Debridement (cm) - Depth 0.2 0.2 -Total Square (Post) (cm) 0.03 0.09 -Area of Debridement (cm) - Length 0.1 0.3 -Area of Debridement (cm) - Width 0.3 0.3 -Total Square (Area) (cm) 0.03 0.09 -Tunneling No No -Undermining/Tunneling No No -Circular Undermining No No -Wound/Ulcer Outcome Not Healed Not Healed -Ulcer Cleansing Rinsed/ Rinsed/ Irrigated with Irrigated with Saline Saline -Foul Odor after Cleansing No No -Bioengineered Tissue No No -Bleeding Controlled with Pressure Pressure -Offloading No No -Treatment Response Procedure Procedure Tolerated Well Tolerated Well -Debridement - Subq, 1st 20sq cm No Yes 6-left middle plantar foot -Time 10:16 09:54 -Correct Patient Yes Yes -Correct Side, Site, Position Yes Yes -Correct Procedure Yes Yes -Procedure Performed Yes Yes -Type of Procedure Debridement Debridement -Clinical Debridement Subcutaneous Subcutaneous -Tissue Removed Subcutaneous Subcutaneous -Post Debridement (cm) - Length 0.2 0.3 -Post Debridement (cm) - Width 0.2 0.2 -Post Debridement (cm) - Depth 0.4 0.2 -Total Square (Post) (cm) 0.04 0.06 -Area of Debridement (cm) - Length 0.2 0.3 -Area of Debridement (cm) - Width 0.2 0.2 -Total Square (Area) (cm) 0.04 0.06 -Tunneling No No -Undermining/Tunneling No No -Circular Undermining No No -Wound/Ulcer Outcome Not Healed Not Healed -Ulcer Cleansing Rinsed/ Rinsed/ Irrigated with Irrigated with Saline Saline -Foul Odor after Cleansing No No -Bioengineered Tissue No No -Bleeding Controlled with Pressure Pressure -Offloading No No -Treatment Response Procedure Procedure Tolerated Well Tolerated Well -Debridement - Subq, 1st 20sq cm Yes No 5-right 1st metatarsal -Time 10:17 09:55 -Correct Patient Yes Yes -Correct Side, Site, Position Yes Yes -Correct Procedure Yes Yes -Procedure Performed Yes Yes -Type of Procedure Debridement Debridement -Clinical Debridement Subcutaneous Subcutaneous -Tissue Removed Subcutaneous Subcutaneous -Post Debridement (cm) - Length 0.3 0.4 -Post Debridement (cm) - Width 0.3 0.3 -Post Debridement (cm) - Depth 0.3 0.2 -Total Square (Post) (cm) 0.09 0.12 -Area of Debridement (cm) - Length 0.3 0.4 -Area of Debridement (cm) - Width 0.3 0.3 -Total Square (Area) (cm) 0.09 0.12 -Tunneling No No -Undermining/Tunneling No No -Circular Undermining No No -Wound/Ulcer Outcome Not Healed Not Healed -Ulcer Cleansing Rinsed/ Rinsed/ Irrigated with Irrigated with Saline Saline -Foul Odor after Cleansing Yes, Due to No Product Use -Bioengineered Tissue No No -Bleeding Controlled with Pressure Pressure -Offloading No No -Treatment Response Procedure Procedure Tolerated Well Tolerated Well -Debridement - Subq, 1st 20sq cm No No #4 left medial hallux -Time 10:17 09:55 -Correct Patient Yes Yes -Correct Side, Site, Position Yes Yes -Correct Procedure Yes Yes -Procedure Performed Yes Yes -Type of Procedure Debridement Debridement -Clinical Debridement Subcutaneous Subcutaneous -Tissue Removed Subcutaneous Subcutaneous -Post Debridement (cm) - Length 0.5 0.6 -Post Debridement (cm) - Width 0.7 0.7 -Post Debridement (cm) - Depth 0.2 0.3 -Total Square (Post) (cm) 0.35 0.42 -Area of Debridement (cm) - Length 0.5 0.6 -Area of Debridement (cm) - Width 0.7 0.7 -Total Square (Area) (cm) 0.35 0.42 -Tunneling No No -Undermining/Tunneling No No -Circular Undermining No No -Wound/Ulcer Outcome Not Healed Not Healed -Ulcer Cleansing Rinsed/ Rinsed/ Irrigated with Irrigated with Saline Saline -Foul Odor after Cleansing No No -Bioengineered Tissue No No -Bleeding Controlled with Pressure Pressure -Offloading No No -Treatment Response Procedure Procedure Tolerated Well Tolerated Well -Debridement - Subq, 1st 20sq cm No No Pain Scale: 0-10 Numeric Is Patient Pain Free? Yes Yes WC - Nurse 3 - General Ulcer D/C NN Start: 12/08/20 09:54 Freq: Status: Active Protocol: Activity Type Activity Date Activity User E-Sign Co-Sign Detail Recorded Client Recorded Date Recorded By Document 12/08/20 10:46 DL [id number] 12/08/20 10:49 DL 12/08/20 10:46 Wound Care Nurse 3 7-left 4th metatarsal foot -Ulcer Cleansing Rinsed/ Irrigated with Saline -Foul Odor after Cleansing No -Primary Dressing Applied Fibracol Plus 4x4 -Primary Dressing Covered/Secured with Dry Gauze & Roll Gauze, Secured with Tape -Fibracol Plus 4x4 1 6-left middle plantar foot -Ulcer Cleansing Wound Cleanser -Foul Odor after Cleansing No -Other Dressing fibracol -Primary Dressing Covered/Secured with Dry Gauze & Roll Gauze, Secured with Tape 5-right 1st metatarsal -Foul Odor after Cleansing No -Other Dressing fibracol -Primary Dressing Covered/Secured with Dry Gauze & Roll Gauze, Secured with Tape #4 left medial hallux -Ulcer Cleansing Rinsed/ Irrigated with Saline -Negative Pressure Wound Therapy Discontinue -Primary Dressing Covered/Secured with Dry Gauze & Roll Gauze, Secured with Tape -Other Covering fibracol Right -Tubular Bandage Single Layer -Size of Tubigrip Used Size C -Size C ($) 1 Treatment Response Procedure Tolerated Well Pain Scale: 0-10 Numeric Is Patient Pain Free? Yes WC - Visit Discharge Discharge Condition Stable Ambulatory Status Ambulatory Transportation Private Auto Notes: Pt refused double tubigrips, allowed single. Unable to apply to E d/ t vasc issued treated by her PCP. Wound debrided: Sub 1, 2, 4 metatarsal heads Laterality: Left Type of Debridement: Excisional debridement Anesthesia Used: 4% Lidocaine Solution Depth: to bone (Debrided to subcu) Percentage of wound debrided: 100 Instrument Used: 3mm curette Tissue Removed: includes fibrous, devitalized, biofilm, callus and slough tissue Severity: Fat Layer Exposed (Probes to bone) Amount of bleeding with debridement: Mild Bleeding Controlled with: Pressure Patient tolerated procedure: Patient tolerated procedure well Additional Wound Wound debrided: Subfirst metatarsal head Laterality: Right Type of Debridement: Excisional debridement Anesthesia Used: 4% Lidocaine Solution Depth: in the subcutaneous layer Percentage of wound debrided: 100 Instrument Used: 3mm curette Tissue Removed: Includes fibrous, devitalized, biofilm, callus and slough tissue Severity: Fat Layer Exposed Amount of bleeding with debridement: Mild Bleeding Controlled with: Pressure Patient tolerated procedure: Patient tolerated procedure well Assessment/Plan Assessment/Plan (1) Non-pressure chronic ulcer of other part of right foot limited to breakdown of skin: CODE(S): L97.511 - Non-pressure chronic ulcer of other part of right foot limited to breakdown of skin (2) Ulcer of left foot with bone involvement without evidence of necrosis: CODE(S): L97.526 - Non-pressure chronic ulcer of other part of left foot with bone involvement without evidence of necrosis (3) Pain in right foot: CODE(S): M79.671 - Pain in right foot (4) Left foot pain: CODE(S): M79.672 - Pain in left foot (5) Fat pad atrophy of foot: CODE(S): L90.9 - Atrophic disorder of skin, unspecified (6) Delayed wound healing: CODE(S): T14.8XXD - Other injury of unspecified body region, subsequent encounter (7) Steroid long-term use: (8) PAD (peripheral artery disease): CODE(S): I73.9 - Peripheral vascular disease, unspecified (9) Corns and callosities: CODE(S): L84 - Corns and callosities (10) Rheumatoid arthritis: CODE(S): M06.9 - Rheumatoid arthritis, unspecified QUALIFIERS: Rheumatoid arthritis location: foot Rheumatoid factor presence: unspecified presence Laterality: bilateral Qualified Code(s): M06.9 - Rheumatoid arthritis, unspecified PLAN: Patient seen and examined. Wounds to right subone metatarsal head has improved whereas wound subone metatarsal head left has worsened. There is also concern for preulcerative area to left sublateral fifth metatarsal. Discussed with patient going a more palliative wound care route with her chronic nonhealing ulcerations especially given significant comorbidities and treatment of healing with medications Debridement performed as noted bilateral. Verbal consent was obtained and she tolerated this well. LEAS 06/30/20 showed moderate distal small vessel disease bilaterally at the digits. The left foot was noted to have biphasic pulses with CRUZ of 1.27 and TBI of 0.37. The left PT was noncompressible. The right foot PT and DP were noncompressible and TBI of 0.4 with triphasic and biphasic pulses. Patient had procedure with Dr Oseguera 07/21/20. Patient reports that the procedure went well. Dr. Oseguera has no further interventions planned at this time. The etiology of her ulcers appears to be from pressure at sites of metatarsal heads as there is significant fat pad atrophy. Discussed with the patient the importance of proper shoe gear with good padding to supplement lost fat pad. This is most likely due to her rheumatoid arthritis, chronic prednisone treatment may also have a role in the nonhealing of the ulcers. Patient has been casted at the office for offloading diabetic inserts that she agrees to pay for [id number] as she is not diabetic. These are not yet in. Offloading was discussed at length today. Patient wears tennis shoes with offloading inserts noted to bilateral shoes. Recommend patient wear surgical shoe at this time. Patient relates that she is not able to tolerate the hardness of the surgical shoes and has gone back to wearing her tennis shoes with the pads in them. Discussed importance of smoking cessation, blood sugar control, weight management, offloading, proper nutrition, and hygiene to optimize healing potential. Discussed that her chronic steroid use for her RA can impact wound healing as well as impact her body's ability to mount an immune response. Also her vascular disease may also be playing into her poor ability to heal. There is suspicion that osteomyelitis infection may still remain given factors that may be impeding wound healing as well as chronic bone exposure to bilateral 1st metatarsals now through the wounds. Upon previous discussion it was noted that the patient did not wish to undergo bone debridement given the extent of osteomyelitis per MRI as well as her already established history of poor wound healing. It was decided that it was not worth the risk of potentially creating a larger wound that potentially more bacteria could then get into to infect the wound. The remaining bone exposure puts patient at clinical osteomyelitis since she has been seen. Patient saw Dr. Steinberg for HBO evaluation. This was given prior to patient's recent heart attack and hospital admission. Patient will need to get cardiac clearance prior to being approved for HBO. This was not given at this time. We will potentially reconsider HBO therapy in the future if ever given cardiac clearance Encouraged protein rich diet and protein supplements. Discussed Vick supplementation. Patient is overall frail appearance with muscle atrophy noted. All questions answered. Continue wound care to foot ulcerations daily. To use fibracol. To moisturize the legs and feet daily. Patient was given Tubigrip's for compression and edema control Follow-up in 2 weeks This note was generated with [employer] dictation software. It may contain incorrect words, spelling, and punctuation that were not noted in checking the note before signing.
[2021-01-05 09:51] VITALS: BP 152/40; PULSE 77; RESP 16; TEMP 36.3; BMI 18.6
--- NOTE | 2021-01-05 10:30 | BONBX_PTH ---
PATIENT: JENNIFER MEREDITH LOC: U#:[id number] AGE/SX: 75/F ROOM: RE01/05/[address]: Dr. Leyda Cavanaugh DPM : 1945 BED: DIS: 01/05/2021 SPEC #: [id number] RECD: 01/05/21 11:30 STATUS: ZARA REQ #: [id number] AMY: 01/05/21 10:[address]: Leyda Cavanaugh DEPT: SURGICAL PATHOLOGY RECD BY: Amber Mcdonough ENTERED: 01/05/21 12:56 SP TYPE: Bone OTHR DR: MD Tracey Mcclure PA Tissues: Bone of foot, NOS Procedures: Decalcification bone/plaque Surgery Specimen Level V HEADER OPERATION: Bone excision from left first metatarsal head ulcer PRE-OP DIAGNOSIS: Nonhealing ulcer, osteomyelitis TISSUE SUBMITTED: Bone biopsy left first metatarsal head ulcer MICROSCOPIC DIAGNOSIS Left first metatarsal head ulcer bone biopsy: Acute osteomyelitis. AM:shira 01/06/2021 MICROSCOPIC DESCRIPTION Slides are reviewed. GROSS DESCRIPTION Received in fixative is one container labeled with the patient's name and designated left first metatarsal ulcer foot. The specimen consists of multiple fragments of bone that in aggregate measure 0.2 x 0.2 x 0.1 cm. The specimen is totally submitted in one cassette after decalcification. / GAYLE:shira 01/05/21 TC:2 CPT: 93214, 20531
--- NOTE | 2021-01-05 12:18 | PN.PCM_ITS ---
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 sub metatarsal head ulcer right History of Wound: Kylah is a 75-year-old female who was referred here for treatment bilateral feet ulcerations. Patient is noted to have significant fat pad atrophy likely secondary to her rheumatoid arthritis. Patient is on multiple medications for her rheumatoid arthritis which are impeding her wound healing. Patient is also prone to breakdown given lack of fat pad. Patient noted to have had MRIs which showed osteomyelitis and has been treated by Dr. Pantoja with antibiotic treatments. Patient is a poor surgical candidate given her poor healing status and multiple comorbidities. The patient has had vascular studies on 06/30/20 showed moderate distal small vessel disease bilaterally at the digits with some non compressible vessels. Patient saw her vascular surgeon, Dr Oseguera, who did intervention on the patient on 07/21/20. Dr. Oseguera has no further interventions planned at this time. She had MRI on 06/25/20 which showed osteomyelitis to left 1st metatarsal. Patient saw Dr Clements for treatment The patient is noted to be on prednisone and methotrexate for her rheumatoid arthritis. These are acknowledged to be possible inhibitors to wound healing. Patient noted to have painful feet due to her rheumatoid arthritis. Patient is also noted to have had recent heart attack and has been started on blood thinners for this. Progress of Wound: Some wounds have improved somewhat worsened Subjective Subjective Patient seen and examined resting comfortably. Patient denies any new pedal complaints. Patient denies any nausea, fever, chills, chest pain, shortness of breath, cough, streaking, purulence, vomiting. Patient relates that she has been having significant pain to her feet the left more than the right and has been having problems sleeping because of this Objective Data Objective Data Vital Signs: Vital Signs Temp Pulse Resp BP 97.3 F L 77 16 152/40 H 01/05/21 09:51 01/05/21 09:51 01/05/21 09:51 01/05/21 09:51 Oxygen Delivery Method Room Air Weight: 46.266 kg Body Mass Index (BMI) 18.6 Lab / Micro Data Labs: Laboratory Results - last 24 hr 01/05/21 10:30: S.aureus Protein A PCR Cancelled, MRSA (PCR) Cancelled Physical Exam Narrative Const alert and no apparent distress General Appearance: cooperative and comfortable Patient has overall frail appearance Lymph Lymphatic: no lymphedema noted Resp normal respiratory effort Effort and Inspection: able to speak in complete sentences Extremity no calf tenderness, negative yasmine and baker sign No lower extremity edema General Extremity: tenderness to palpation palpable metatarsal heads. There is Significant fat pad atrophy noted with easily palpable metatarsal heads 1 through 5 bilaterally. Negative for clubbing or cyanosis or ecchymosis or erythema Vasc Peripheral Pulses: posterior tibial pulses absent and dorsalis pedis pulses present but diminished, normal capillary refill, no acute ischemic skin changes noted, cool temperature Skin General Skin Exam: dry flaky atrophic skin to entire bilateral lower extremities, absent hair growth noted; Negative for ecchymosis, eschar, pallor, rashes. Patient skin in general is in very poor condition especially since starting blood thinners. Her arms are noted to be extremely dark and discolored to her entire forearms. Wound Narrative: ulcers noted to plantar first metatarsal head bilaterally and left sub second and sub fourth metatarsal head. There is irritated erythematous area noted to plantar lateral fifth metatarsal head left. Improvement noted to right side of first metatarsal head as well as left subsecond metatarsal head ulceration as they no longer probe to bone. There is worsening of the left subfirst and fourth metatarsal head with expanding wound and more bone exposure. There is milky drainage excluded from these ulcer sites upon debridement of overlying callus. With the first metatarsal easily visualized with a sharp bony point. No malodor, streaking, fluctuation, crepitus. Skin is atrophic and hairless. Granular base. Left subone and 4 ulcerations probe to bone left especially to left subfirst metatarsal head wound. Scant Serosanguineous drainage noted to bilateral wounds. There is significant amount of fat pad atrophy noted to bilateral feet secondary to patient's rheumatoid arthritis. There is noted callus buildup within the ulceration site with and overlying the wounds. Peripheral callous noted to all ulcer sites. Plantar lateral fifth metatarsal head left foot noted to have preulcerative area with surrounding erythema noted. No open wounds at this time. No signs of infection. Callus tissue noted to metatarsal heads plantarly left more so than right. Pain to palpation of plantar forefoot bilaterally Neuro Gait (Neuro): heel to toe Sensory Exam: extremities light-touch: Intact MSK Motor Exam: strength 5/5 throughout, ROM to foot and ankle joints within normal limits, significant fat pad atrophy with very easily palpable metatarsal heads bilaterally, muscle wasting noted Psych Appearance: appropriate Attitude: calm Debridement Note Debridement Note Post-Debridement Measurements and Additional Note: Post-Debridement Measurements/Treatment - Nurse 1 - General Ulcer Assessment Start: 12/08/20 09:54 Freq: Status: Active Protocol: SHAHANA.LOWEXT Activity Type Activity Date Activity User E-Sign Co-Sign Detail Recorded Client Recorded Date Recorded By Document 12/08/20 09:56 DL [id number] 12/08/20 10:07 DL Document 12/22/20 09:41 KR Desktop 12/22/20 09:44 KR Document 01/05/21 09:51 MW [id number] 01/05/21 10:03 MW 12/08/20 12/22/20 01/05/21 09:56 09:41 09:51 - Today's Visit Information Type of service Follow-up Visit Follow-up Visit Follow-up Visit (Physician/[employer] (Physician/[employer] (Physician/[employer] ) ) ) Arrival Mode Ambulatory Ambulatory Ambulatory Transfer Assistance None None Accompanied by Patient Identification Verified (Name & Yes Yes ) Patient Requires Transmission-Based No No Precautions Safety Precautions NA Height and Weight Body Mass Index (BMI) 18.6 18.6 18.6 BMI Classification Normal Normal Normal Vital Signs Temperature (97.8 F-99.1 F) 97.6 F L 97.1 F L 97.3 F L Temperature Source Temporal Temporal Temporal Pulse Rate (60-100) 64 72 77 Pulse Location Monitor Monitor Monitor Respiratory Rate (12-18) 20 H 16 Respiratory rate source Observation Observation Oxygen Delivery Method Room Air Blood Pressure (90/60-120/80) 106/50 L 132/72 H 152/40 H Blood Pressure Mean (mm Hg) 68 92 77 Source Monitor Monitor Monitor Position Sitting Sitting Blood Pressure Location Left Arm Left Arm History Since Last Visit- (Skip if this is Patient's initial visit) Have you changed medications since your No No No last visit? Any new allergies or adverse reactions No No No Had a fall/change in ADL's that may No No No increase risk of falls Signs or symptoms of abuse and/or No No No neglect since last visit Have you been in the hospital since your No No last visit? Has dressing in place as prescribed Yes Yes Yes Has compression in place as prescribed N/A Yes Yes Has offloadiing in place as prescribed N/A N/A Experienced any changes in pain level or No No No management Left Footwear Regular Shoe Regular Shoe Right Footwear Regular Shoe Regular Shoe Pain Scale: 0-10 Numeric Is Patient Pain Free? Yes Yes Yes WC - Nurse 1 - General Ulcer Measurement Start: 12/08/20 09:54 Freq: Status: Active Protocol: Activity Type Activity Date Activity User E-Sign Co-Sign Detail Recorded Client Recorded Date Recorded By Document 12/08/20 09:56 DL [id number] 12/08/20 10:07 DL Document 12/22/20 09:41 KR Desktop 12/22/20 09:44 KR Document 01/05/21 09:51 MW [id number] 01/05/21 10:03 MW 12/08/20 12/22/20 01/05/21 09:56 09:41 09:51 Wound Center Nurse 1 7-left 4th metatarsal foot -Combined with other wound No -Current Size (cm) - Length 0.1 0.2 -Current Size (cm) - Width 0.1 0.2 -Current Size (cm) - Depth 0.1 0.1 -Total Square Cm 0.01 0.04 -Photo Taken No -Epithelialization None Present -Tunneling No -Undermining/Tunneling No -Circular Undermining No -Exudate Amt Small None Present -Exudate Type Serosanguineous -Wound Margin Distinct, Flat & Intact Outline Attached -Granulation Amt Small (1-33%) None Present (0 %) -Granulation Quality Retreat N/A -Slough/Fibrin Yes -Necrosis Amt None Present (0 Small (1-33%) %) -Structure Exposed N/A -Texture (Анна-wound Skin Appearance) Assessed, Callus Scarring -Moisture (Анна-wound Skin Appearance) No Abnormality, Assessed,Dry/ Assessed Scaly -Color (Анна-wound Skin Appearance) No Abnormality, No Abnormality, Assessed Assessed -Temperature (Анна-wound Skin No Abnormality No Abnormality Appearance) (Pt Warm) (Pt Warm) -Tenderness on Palpation (Анна-wound No Yes Skin Appearance) -Ulcer Cleansing Rinsed/ Rinsed/ Irrigated with Irrigated with Saline Saline -Foul Odor after Cleansing No No -Anesthetic Used 4% Lidocaine 4% Lidocaine Solution Solution 6-left middle plantar foot -Combined with other wound No -Current Size (cm) - Length 0.1 0.2 0.3 -Current Size (cm) - Width 0.1 0.3 0.4 -Current Size (cm) - Depth 0.1 0.2 0.1 -Total Square Cm 0.01 0.06 0.12 -Photo Taken No No -Epithelialization None Present -Tunneling No -Undermining/Tunneling No -Circular Undermining No -Exudate Amt None Present Small None Present -Exudate Type Serosanguineous -Wound Margin Thickened Distinct, Flat & Intact Outline Attached -Granulation Amt Large (67-100%) None Present (0 %) -Granulation Quality Pale N/A -Necrosis Amt Small (1-33%) Small (1-33%) Small (1-33%) -Necrotic Tissue Type Adherent Slough Adherent Slough -Structure Exposed N/A N/A -Texture (Анна-wound Skin Appearance) Callus,Scarring Assessed, Assessed Scarring -Moisture (Анна-wound Skin Appearance) No Abnormality No Abnormality, No Abnormality, Assessed Assessed -Color (Анна-wound Skin Appearance) No Abnormality No Abnormality, No Abnormality Assessed -Temperature (Анна-wound Skin No Abnormality No Abnormality No Abnormality Appearance) (Pt Warm) (Pt Warm) (Pt Warm) -Tenderness on Palpation (Анна-wound No No Yes Skin Appearance) -Ulcer Cleansing Wound Cleanser Rinsed/ Rinsed/ Irrigated with Irrigated with Saline Saline -Foul Odor after Cleansing No No No -Anesthetic Used 4% Lidocaine 4% Lidocaine 4% Lidocaine Solution Solution Solution 5-right 1st metatarsal -Combined with other wound No -Current Size (cm) - Length 0.1 0.1 0.3 -Current Size (cm) - Width 0.1 0.1 0.3 -Current Size (cm) - Depth 0.1 0.1 0.1 -Total Square Cm 0.01 0.01 0.09 -Photo Taken No No -Epithelialization None Present -Tunneling No -Undermining/Tunneling No -Circular Undermining No -Exudate Amt None Present None Present None Present -Wound Margin Thickened Distinct, Flat & Intact Outline Attached -Granulation Amt None Present (0 Small (1-33%) None Present (0 %) %) -Granulation Quality Red -Slough/Fibrin Yes -Necrosis Amt Small (1-33%) None Present (0 Small (1-33%) %) -Necrotic Tissue Type Eschar -Structure Exposed N/A N/A -Texture (Анна-wound Skin Appearance) Callus,Scarring Assessed, Assessed,Callus Scarring -Moisture (Анна-wound Skin Appearance) No Abnormality No Abnormality, Assessed,Dry/ Assessed Scaly -Color (Анна-wound Skin Appearance) No Abnormality, No Abnormality, Assessed Assessed -Temperature (Анна-wound Skin No Abnormality No Abnormality No Abnormality Appearance) (Pt Warm) (Pt Warm) (Pt Warm) -Tenderness on Palpation (Анна-wound No No No Skin Appearance) -Ulcer Cleansing Wound Cleanser Rinsed/ Rinsed/ Irrigated with Irrigated with Saline Saline -Foul Odor after Cleansing No No No -Anesthetic Used 4% Lidocaine 4% Lidocaine Solution Solution #4 left medial hallux -Combined with other wound No -Current Size (cm) - Length 0.2 0.2 0.2 -Current Size (cm) - Width 0.2 0.2 0.2 -Current Size (cm) - Depth 0.2 0.1 0.3 -Total Square Cm 0.04 0.04 0.04 -Photo Taken No No -Epithelialization None Present -Tunneling No -Undermining/Tunneling No -Circular Undermining No -Exudate Amt Medium None Present Medium -Exudate Type Yellow/Green Purulent -Wound Margin Distinct, Distinct, Flat & Intact Outline Outline Attached Attached -Granulation Amt None Present (0 Small (1-33%) None Present (0 %) %) -Granulation Quality Red N/A -Necrosis Amt Small (1-33%) None Present (0 Small (1-33%) %) -Necrotic Tissue Type Adherent Slough Adherent Slough -Structure Exposed Bone N/A -Texture (Анна-wound Skin Appearance) Callus,Scarring Assessed, Assessed,Callus Scarring -Moisture (Анна-wound Skin Appearance) No Abnormality No Abnormality, No Abnormality, Assessed Assessed -Color (Анна-wound Skin Appearance) No Abnormality No Abnormality, No Abnormality, Assessed Assessed -Temperature (Анна-wound Skin No Abnormality No Abnormality Appearance) (Pt Warm) (Pt Warm) -Tenderness on Palpation (Анна-wound No Yes Skin Appearance) -Ulcer Cleansing Wound Cleanser Rinsed/ Rinsed/ Irrigated with Irrigated with Saline Saline -Foul Odor after Cleansing Yes, Due to No Product Use -Anesthetic Used 4% Lidocaine 4% Lidocaine 4% Lidocaine Solution Solution Solution Lower Limb Edema Present No WC - Nurse 2 - General Ulcer CM Notes Start: 12/08/20 09:54 Freq: Status: Active Protocol: Activity Type Activity Date Activity User E-Sign Co-Sign Detail Recorded Client Recorded Date Recorded By Document 12/08/20 10:15 [id number] 12/08/20 10:31 Document 12/22/20 09:53 [id number] 12/22/20 10:01 Document 01/05/21 10:22 [id number] 01/05/21 10:42 12/08/20 12/22/20 01/05/21 10:15 09:53 10:22 Wound Center Nurse 2 7-left 4th metatarsal foot -Time 10:25 09:53 10:23 -Correct Patient Yes Yes Yes -Correct Side, Site, Position Yes Yes Yes -Correct Procedure Yes Yes Yes -Procedure Performed Yes Yes Yes -Type of Procedure Debridement Debridement Debridement -Clinical Debridement Subcutaneous Subcutaneous Subcutaneous -Tissue Removed Subcutaneous Subcutaneous Subcutaneous -Post Debridement (cm) - Length 0.1 0.3 0.3 -Post Debridement (cm) - Width 0.3 0.3 0.4 -Post Debridement (cm) - Depth 0.2 0.2 0.1 -Total Square (Post) (cm) 0.03 0.09 0.12 -Area of Debridement (cm) - Length 0.1 0.3 0.3 -Area of Debridement (cm) - Width 0.3 0.3 0.4 -Total Square (Area) (cm) 0.03 0.09 0.12 -Tunneling No No No -Undermining/Tunneling No No -Circular Undermining No No No -Wound/Ulcer Outcome Not Healed Not Healed Not Healed -Ulcer Cleansing Rinsed/ Rinsed/ Wound Cleanser Irrigated with Irrigated with Saline Saline -Foul Odor after Cleansing No No No -Bioengineered Tissue No No No -Bleeding Controlled with Pressure Pressure Pressure -Offloading No No No -Treatment Response Procedure Procedure Procedure Tolerated Well Tolerated Well Tolerated Well -Debridement - Subq, 1st 20sq cm No Yes Yes 6-left middle plantar foot -Time 10:16 09:54 10:39 -Correct Patient Yes Yes Yes -Correct Side, Site, Position Yes Yes Yes -Correct Procedure Yes Yes Yes -Procedure Performed Yes Yes Yes -Type of Procedure Debridement Debridement Debridement -Clinical Debridement Subcutaneous Subcutaneous Subcutaneous -Tissue Removed Subcutaneous Subcutaneous Subcutaneous -Post Debridement (cm) - Length 0.2 0.3 0.2 -Post Debridement (cm) - Width 0.2 0.2 0.1 -Post Debridement (cm) - Depth 0.4 0.2 0.1 -Total Square (Post) (cm) 0.04 0.06 0.02 -Area of Debridement (cm) - Length 0.2 0.3 0.2 -Area of Debridement (cm) - Width 0.2 0.2 0.1 -Total Square (Area) (cm) 0.04 0.06 0.02 -Tunneling No No No -Undermining/Tunneling No No No -Circular Undermining No No No -Wound/Ulcer Outcome Not Healed Not Healed Not Healed -Ulcer Cleansing Rinsed/ Rinsed/ Rinsed/ Irrigated with Irrigated with Irrigated with Saline Saline Saline -Foul Odor after Cleansing No No No -Bioengineered Tissue No No No -Bleeding Controlled with Pressure Pressure Silver Nitrate -Offloading No No No -Treatment Response Procedure Procedure Procedure Tolerated Well Tolerated Well Tolerated Well -Debridement - Subq, 1st 20sq cm Yes No No 5-right 1st metatarsal -Time 10:17 09:55 10:40 -Correct Patient Yes Yes Yes -Correct Side, Site, Position Yes Yes Yes -Correct Procedure Yes Yes Yes -Procedure Performed Yes Yes Yes -Type of Procedure Debridement Debridement Debridement -Clinical Debridement Subcutaneous Subcutaneous Subcutaneous -Tissue Removed Subcutaneous Subcutaneous Subcutaneous, Fascia -Post Debridement (cm) - Length 0.3 0.4 0.2 -Post Debridement (cm) - Width 0.3 0.3 0.2 -Post Debridement (cm) - Depth 0.3 0.2 0.2 -Total Square (Post) (cm) 0.09 0.12 0.04 -Area of Debridement (cm) - Length 0.3 0.4 0.2 -Area of Debridement (cm) - Width 0.3 0.3 0.2 -Total Square (Area) (cm) 0.09 0.12 0.04 -Tunneling No No No -Undermining/Tunneling No No No -Circular Undermining No No No -Wound/Ulcer Outcome Not Healed Not Healed Not Healed -Ulcer Cleansing Rinsed/ Rinsed/ Rinsed/ Irrigated with Irrigated with Irrigated with Saline Saline Saline -Foul Odor after Cleansing Yes, Due to No No Product Use -Bioengineered Tissue No No No -Bleeding Controlled with Pressure Pressure Pressure -Offloading No No No -Treatment Response Procedure Procedure Procedure Tolerated Well Tolerated Well Tolerated Well -Debridement - Subq, 1st 20sq cm No No No #4 left medial hallux -Time 10:17 09:55 10:41 -Correct Patient Yes Yes Yes -Correct Side, Site, Position Yes Yes Yes -Correct Procedure Yes Yes Yes -Procedure Performed Yes Yes Yes -Type of Procedure Debridement Debridement Debridement -Clinical Debridement Subcutaneous Subcutaneous Bone -Tissue Removed Subcutaneous Subcutaneous Tendon -Post Debridement (cm) - Length 0.5 0.6 0.4 -Post Debridement (cm) - Width 0.7 0.7 0.8 -Post Debridement (cm) - Depth 0.2 0.3 0.3 -Total Square (Post) (cm) 0.35 0.42 0.32 -Area of Debridement (cm) - Length 0.5 0.6 0.4 -Area of Debridement (cm) - Width 0.7 0.7 0.8 -Total Square (Area) (cm) 0.35 0.42 0.32 -Tunneling No No No -Undermining/Tunneling No No No -Circular Undermining No No No -Wound/Ulcer Outcome Not Healed Not Healed Not Healed -Ulcer Cleansing Rinsed/ Rinsed/ Rinsed/ Irrigated with Irrigated with Irrigated with Saline Saline Saline -Foul Odor after Cleansing No No No -Bioengineered Tissue No No No -Bleeding Controlled with Pressure Pressure Pressure -Offloading No No No -Treatment Response Procedure Procedure Procedure Tolerated Well Tolerated Well Tolerated Well -Debridement - Subq, 1st 20sq cm No No -Debridement - Bone, 1st 20sq cm Yes Pain Scale: 0-10 Numeric Is Patient Pain Free? Yes Yes Yes WC - Nurse 3 - General Ulcer D/C NN Start: 12/08/20 09:54 Freq: Status: Active Protocol: Activity Type Activity Date Activity User E-Sign Co-Sign Detail Recorded Client Recorded Date Recorded By Document 12/08/20 10:46 DL [id number] 12/08/20 10:49 DL Document 12/22/20 10:23 [facility] Desktop 12/22/20 10:24 [facility] Document 01/05/21 10:53 DL [id number] 01/05/21 10:54 DL 12/08/20 12/22/20 01/05/21 10:46 10:23 10:53 Wound Care Nurse 3 7-left 4th metatarsal foot -Ulcer Cleansing Rinsed/ Rinsed/ Rinsed/ Irrigated with Irrigated with Irrigated with Saline Saline Saline -Foul Odor after Cleansing No No No -Primary Dressing Applied Fibracol Plus Fibracol Plus Fibracol Plus 4x4 4x4 4x4 -Primary Dressing Covered/Secured with Dry Gauze & Dry Gauze & Dry Gauze & Roll Gauze, Roll Gauze, Roll Gauze, Secured with Secured with Secured with Tape Tape Tape -Fibracol Plus 4x4 1 1 1 6-left middle plantar foot -Ulcer Cleansing Wound Cleanser Rinsed/ Rinsed/ Irrigated with Irrigated with Saline Saline -Foul Odor after Cleansing No No No -Primary Dressing Applied Fibracol Plus 4x4 -Other Dressing fibracol fibracol -Primary Dressing Covered/Secured with Dry Gauze & Dry Gauze & Dry Gauze & Roll Gauze, Roll Gauze, Roll Gauze, Secured with Secured with Secured with Tape Tape Tape -Fibracol Plus 4x4 0 5-right 1st metatarsal -Ulcer Cleansing Rinsed/ Rinsed/ Irrigated with Irrigated with Saline Saline -Foul Odor after Cleansing No No No -Primary Dressing Applied Fibracol Plus 4x4 -Other Dressing fibracol fibracol -Primary Dressing Covered/Secured with Dry Gauze & Dry Gauze & Dry Gauze & Roll Gauze, Roll Gauze, Roll Gauze, Secured with Secured with Secured with Tape Tape Tape -Fibracol Plus 4x4 0 #4 left medial hallux -Ulcer Cleansing Rinsed/ Rinsed/ Rinsed/ Irrigated with Irrigated with Irrigated with Saline Saline Saline -Foul Odor after Cleansing No No -Negative Pressure Wound Therapy Discontinue -Primary Dressing Applied Fibracol Plus 4x4 -Other Dressing fibracol -Primary Dressing Covered/Secured with Dry Gauze & Dry Gauze & Dry Gauze & Roll Gauze, Roll Gauze, Roll Gauze, Secured with Secured with Secured with Tape Tape Tape -Other Covering fibracol -Fibracol Plus 4x4 0 Right -Tubular Bandage Single Layer -Size of Tubigrip Used Size C -Size C ($) 1 Treatment Response Procedure Procedure Procedure Tolerated Well Tolerated Well Tolerated Well Pain Scale: 0-10 Numeric Is Patient Pain Free? Yes Yes Yes WC - Visit Discharge Discharge Condition Stable Stable Stable Ambulatory Status Ambulatory Ambulatory Ambulatory Transportation Private Auto Private Auto Notes: Pt refused double tubigrips, allowed single. Unable to apply to RLE d/ t vasc issued treated by her PCP. Wound debrided: Subfirst metatarsal head Laterality: Right Type of Debridement: Excisional debridement Anesthesia Used: 4% Lidocaine Solution Depth: in the subcutaneous layer Percentage of wound debrided: 100 Instrument Used: 3mm curette Tissue Removed: includes fibrous, devitalized, biofilm, callus and slough tissue Severity: Fat Layer Exposed Amount of bleeding with debridement: Mild Bleeding Controlled with: Pressure Patient tolerated procedure: Patient tolerated procedure well Additional Wound Wound debrided: Subtwo and 4 metatarsal heads Laterality: Left Type of Debridement: Excisional debridement Anesthesia Used: 4% Lidocaine Solution Depth: in the subcutaneous layer Percentage of wound debrided: 100 Instrument Used: 3mm curette Tissue Removed: Includes fibrous, devitalized, biofilm, callus and slough tissue Severity: Fat Layer Exposed Amount of bleeding with debridement: Mild Bleeding Controlled with: Pressure Patient tolerated procedure: Patient tolerated procedure well Additional Wound Wound debrided: Subfirst metatarsal head Laterality: Left Type of Debridement: Excisional debridement Anesthesia Used: 5% Lidocaine Gel Depth: to bone Percentage of wound debrided: 100 Instrument Used: 3mm curette and - (Rongure) Tissue Removed: Includes fibrous, devitalized, biofilm, callus and slough tissue Severity: Necrosis of Bone Amount of bleeding with debridement: Mild Bleeding Controlled with: Pressure Patient tolerated procedure: Patient tolerated procedure well Assessment/Plan Assessment/Plan (1) Chronic ulcer of toe of right foot with fat layer exposed: CODE(S): L97.512 - Non-pressure chronic ulcer of other part of right foot with fat layer exposed (2) Non-pressure chronic ulcer of other part of left foot with fat layer exposed: CODE(S): L97.522 - Non-pressure chronic ulcer of other part of left foot with fat layer exposed (3) Ulcer of left foot with bone involvement without evidence of necrosis: CODE(S): L97.526 - Non-pressure chronic ulcer of other part of left foot with bone involvement without evidence of necrosis (4) Pain in right foot: CODE(S): M79.671 - Pain in right foot (5) Left foot pain: CODE(S): M79.672 - Pain in left foot (6) Fat pad atrophy of foot: CODE(S): L90.9 - Atrophic disorder of skin, unspecified (7) Delayed wound healing: CODE(S): T14.8XXD - Other injury of unspecified body region, subsequent encounter (8) Steroid long-term use: (9) PAD (peripheral artery disease): CODE(S): I73.9 - Peripheral vascular disease, unspecified (10) Corns and callosities: CODE(S): L84 - Corns and callosities (11) Rheumatoid arthritis: CODE(S): M06.9 - Rheumatoid arthritis, unspecified QUALIFIERS: Rheumatoid arthritis location: foot Rheumatoid factor presence: unspecified presence Laterality: bilateral Qualified Code(s): M06.9 - Rheumatoid arthritis, unspecified PLAN: Patient seen and examined. Wounds to right subone metatarsal head has improved whereas wound sub one and for metatarsal head left has worsened. Both of these wounds are noted to have a callus Foot upon debridement milky white fluid was expressed. A swab culture was obtained of the fluid from the fourth left metatarsal wound. A rongeur was used in order to obtain a bone culture with debridement of the first metatarsal head which was sent to microbiology and pathology. It is noted that the bone was relatively hard upon debridement. There is also concern for preulcerative area to left sublateral fifth metatarsal. Patient is noted to have just come off Bactrim per infectious disease. Discussed with the patient going back on until culture results are obtained versus waiting till the results have returned to guide any potential antibiotic choices. Patient would like to wait until the results come back given she is still having diarrhea from last dose of antibiotics. Discussed with the patient that as she has no systemic signs of of illness as well as low suspicion of clinical infection that would be fine to wait a few days until results come back. Patient will be called to notify her of these results and whether antibiotic therapy is recommended. Discussed with patient going a more palliative wound care route with her chronic nonhealing ulcerations especially given significant comorbidities and treatment of healing with medications Debridement performed as noted bilateral. Verbal consent was obtained and she tolerated this well. LEAS 06/30/20 showed moderate distal small vessel disease bilaterally at the digits. The left foot was noted to have biphasic pulses with CRUZ of 1.27 and TBI of 0.37. The left PT was noncompressible. The right foot PT and DP were noncompressible and TBI of 0.4 with triphasic and biphasic pulses. Patient had procedure with Dr Oseguera 07/21/20. Patient reports that the procedure went well. Dr. Oseguera has no further interventions planned at this time. The etiology of her ulcers appears to be from pressure at sites of metatarsal heads as there is significant fat pad atrophy. Discussed with the patient the importance of proper shoe gear with good padding to supplement lost fat pad. This is most likely due to her rheumatoid arthritis, chronic prednisone treatment may also have a role in the nonhealing of the ulcers. Patient has been casted at the office for offloading diabetic inserts that she agrees to pay for [id number] as she is not diabetic. These are not yet in. Offloading was discussed at length today. Patient wears tennis shoes with offloading inserts noted to bilateral shoes. Recommend patient wear surgical shoe at this time. Patient relates that she is not able to tolerate the hardness of the surgical shoes and has gone back to wearing her tennis shoes with the pads in them. Discussed importance of non-smoking, blood sugar control, weight management, offloading, proper nutrition, and hygiene to optimize healing potential. Discussed that her chronic steroid use for her RA can impact wound healing as well as impact her body's ability to mount an immune response. Discussed the importance of proper nutrition including getting enough protein in her diet to help with healing. Also her vascular disease may also be playing into her poor ability to heal. There is suspicion that osteomyelitis infection may still remain given factors that may be impeding wound healing as well as chronic bone exposure to bilateral 1st metatarsals now through the wounds. Upon previous discussion it was noted that the patient did not wish to undergo bone debridement given the extent of osteomyelitis per MRI as well as her already established history of poor wound healing. It was decided that it was not worth the risk of potentially creating a larger wound that potentially more bacteria could then get into to infect the wound. The remaining bone exposure puts patient at clinical osteomyelitis since she has been seen. Patient saw Dr. Steinberg for HBO evaluation. This was given prior to patient's recent heart attack and hospital admission. Patient will need to get cardiac clearance prior to being approved for HBO. This was not given at this time. We will potentially reconsider HBO therapy in the future if ever given cardiac clearance. Patient voices she has an appointment with her coil tier in February. Encouraged protein rich diet and protein supplements. Discussed Vick supplementation. Patient is overall frail appearance with muscle atrophy noted. All questions answered. Continue wound care to foot ulcerations daily. To use fibracol. To moisturize the legs and feet daily. Patient was given Tubigrip's for compression and edema control Follow-up in 1-3 weeks This note was generated with [employer] dictation software. It may contain incorrect words, spelling, and punctuation that were not noted in checking the note before signing.
[2021-01-05 13:13] LABS: M R Staph aureus DNA By PCR Negative (Negative); Probe Check PASS; Specimen Processing Control PASS; Staph aureus DNA By PCR NEGATIVE (Negative)
== END 2021-01-05 23:59 ==
LOC: WC 09:45
PROVIDERS: PCP Physician Assistant; Visit Provider Podiatrist Foot & Ankle Surgery
DX: M86.672 Other chronic osteomyelitis, left ankle and foot (principal); M06.9 Rheumatoid arthritis, unspecified; Z79.01 Long term (current) use of anticoagulants; I25.2 Old myocardial infarction; L97.524 Non-pressure chronic ulcer of other part of left foot with necrosis of bone; L97.514 Non-pressure chronic ulcer of other part of right foot with necrosis of bone; M79.671 Pain in right foot; M79.672 Pain in left foot; I73.9 Peripheral vascular disease, unspecified; Z79.52 Long term (current) use of systemic steroids; L97.512 Non-pressure chronic ulcer of other part of right foot with fat layer exposed; L97.522 Non-pressure chronic ulcer of other part of left foot with fat layer exposed; L84 Corns and callosities
CPT/HCPCS: 11042; 11044; 36415; 80048; 87070; 87075; 87077; 87176; 87186; 87205; 87640; 88307; 88311

== ENCOUNTER 2021-02-02 10:00 | Outpatient (RCR) | payer MEDICARE, SELFPAY ==
[2021-01-06 00:30] VITALS: BP 152/40; PULSE 77; RESP 16; TEMP 36.3; BMI 18.6
[2021-01-19 09:49] VITALS: TEMP 36.2; BMI 18.6
--- NOTE | 2021-01-19 12:20 | PN.PCM_ITS ---
History of Present Illness Date of Service: 01/19/21 Chief Complaint: Bilateral 1st metatarsal ulceration with chronic refractory osteomyelitis of the left first metatarsal. sub metatarsal head ulcer right History of Wound: Kylah is a 75-year-old female who was referred here for treatment bilateral feet ulcerations. Patient is noted to have significant fat pad atrophy likely secondary to her rheumatoid arthritis. Patient is on multiple medications for her rheumatoid arthritis which are impeding her wound healing. Patient is also prone to breakdown given lack of fat pad. Patient noted to have had MRIs which showed osteomyelitis and has been treated by Dr. Pantoja with antibiotic treatments. Patient is a poor surgical candidate given her poor healing status and multiple comorbidities. The patient has had vascular studies on 06/30/20 showed moderate distal small vessel disease bilaterally at the digits with some non compressible vessels. Patient saw her vascular surgeon, Dr Oseguera, who did intervention on the patient on 07/21/20. Dr. Oseguera has no further interventions planned at this time. She had MRI on 06/25/20 which showed osteomyelitis to left 1st metatarsal. Patient saw Dr Clements for treatment The patient is noted to be on prednisone and methotrexate for her rheumatoid arthritis. These are acknowledged to be possible inhibitors to wound healing. Patient noted to have painful feet due to her rheumatoid arthritis. Patient is also noted to have had recent heart attack and has been started on blood thinners for this. Patient has gotten offloading inserts to place in her tennis shoes as well as her slippers. Patient reports that his improved her pain when ambulating wearing these. Progress of Wound: Improved Subjective Subjective Patient seen and examined resting comfortably. Patient denies any new pedal complaints. Patient denies any nausea, fever, chills, chest pain, shortness of breath, cough, streaking, purulence, vomiting. Patient relates that Dr. Pantoja saw her earlier today and is going to start her on some new antibiotics and took some new cultures. Objective Data Objective Data Vital Signs: Vital Signs Temp Pulse Resp BP 97.1 F L 77 16 152/40 H 01/19/21 09:49 01/06/21 00:30 01/06/21 00:30 01/06/21 00:30 Weight: 46.266 kg Body Mass Index (BMI) 18.6 Physical Exam Narrative Const alert and no apparent distress General Appearance: cooperative and comfortable Patient has overall frail appearance Lymph Lymphatic: no lymphedema noted Resp normal respiratory effort Effort and Inspection: able to speak in complete sentences Extremity no calf tenderness, negative yasmine and baker sign No lower extremity edema General Extremity: tenderness to palpation palpable metatarsal heads. There is Significant fat pad atrophy noted with easily palpable metatarsal heads 1 through 5 bilaterally. Negative for clubbing or cyanosis or ecchymosis or erythema Vasc Peripheral Pulses: posterior tibial pulses absent and dorsalis pedis pulses present but diminished, normal capillary refill, no acute ischemic skin changes noted, cool temperature Skin General Skin Exam: dry flaky atrophic skin to entire bilateral lower extremities, absent hair growth noted; Negative for ecchymosis, eschar, pallor, rashes. Patient skin in general is in very poor condition especially since starting blood thinners. Her arms are noted to be extremely dark and discolored to her entire forearms. Wound Narrative: ulcers noted to plantar first metatarsal head bilaterally. Ulcerations to left sub second and sub fourth metatarsal head have healed. The irritated erythematous area noted to plantar lateral fifth metatarsal head left has vastly improved. There is worsening of the left subfirst and fourth metatarsal head with expanding wound and more bone exposure. There is milky drainage excluded from these ulcer sites upon debridement of overlying callus. With the first m etatarsal easily visualized with a sharp bony point. No malodor, streaking, fluctuation, crepitus. Skin is atrophic and hairless. Granular base. Bilateral subfirst metatarsal head wounds probe to bone. Serous drainage noted to left subone wound with some purulence expressed. There is significant amount of fat pad atrophy noted to bilateral feet secondary to patient's rheumatoid arthritis. There is noted callus buildup within the ulceration site with and overlying the wounds. Peripheral callous noted to all ulcer and former ulcer sites. Plantar lateral fifth metatarsal head left foot noted to have preulcerative area with surrounding erythema noted which has vastly improved. No open wounds at this time. No signs of infection. Callus tissue noted to metatarsal heads plantarly left more so than right. Pain to palpation of plantar forefoot bilaterally Neuro Gait (Neuro): heel to toe Sensory Exam: extremities light-touch: Intact MSK Motor Exam: strength 5/5 throughout, ROM to foot and ankle joints within normal limits, significant fat pad atrophy with very easily palpable metatarsal heads bilaterally, muscle wasting noted Psych Appearance: appropriate Attitude: calm Debridement Note Debridement Note Wound debrided: Subone metatarsal head Laterality: Right Type of Debridement: Excisional debridement Anesthesia Used: 4% Lidocaine Solution Depth: in the subcutaneous layer Percentage of wound debrided: 100 Instrument Used: 3mm curette and #15 blade Tissue Removed: includes fibrous, devitalized, biofilm, callus and slough tissue Severity: Fat Layer Exposed Amount of bleeding with debridement: Mild Bleeding Controlled with: Pressure Patient tolerated procedure: Patient tolerated procedure well Post-Debridement Measurements and Additional Note: Post-Debridement Measurements/Treatment - Nurse 1 - General Ulcer Assessment Start: 01/19/21 09:49 Freq: Status: Active Protocol: GEORGE Activity Type Activity Date Activity User E-Sign Co-Sign Detail Recorded Client Recorded Date Recorded By Document 01/19/21 09:49 DL [id number] 01/19/21 10:07 DL 01/19/21 09:49 WC - Today's Visit Information Type of service Follow-up Visit (Physician/EXERCISE TEACHER ) Arrival Mode Ambulatory Transfer Assistance None Patient Identification Verified (Name & Yes ) Patient Requires Transmission-Based No Precautions Height and Weight Body Mass Index (BMI) 18.6 BMI Classification Normal Vital Signs Temperature (97.8 F-99.1 F) 97.1 F L Temperature Source Temporal History Since Last Visit- (Skip if this is Patient's initial visit) Have you changed medications since your No last visit? Any new allergies or adverse reactions No Had a fall/change in ADL's that may No increase risk of falls Signs or symptoms of abuse and/or No neglect since last visit Have you been in the hospital since your No last visit? Has dressing in place as prescribed Yes Has compression in place as prescribed Yes Has offloadiing in place as prescribed N/A Experienced any changes in pain level or No management Left Footwear Regular Shoe Right Footwear Regular Shoe Pain Scale: 0-10 Numeric Is Patient Pain Free? Yes - Nurse 1 - General Ulcer Measurement Start: 01/19/21 09:49 Freq: Status: Active Protocol: Activity Type Activity Date Activity User E-Sign Co-Sign Detail Recorded Client Recorded Date Recorded By Document 01/19/21 09:49 DL [id number] 01/19/21 10:07 DL 01/19/21 09:49 Wound Center Nurse 1 7-left 4th metatarsal foot -Current Size (cm) - Length 0.2 -Current Size (cm) - Width 0.2 -Current Size (cm) - Depth 0.1 -Total Square Cm 0.04 -Photo Taken No -Exudate Amt None Present -Wound Margin Distinct, Outline Attached -Granulation Amt None Present (0 %) -Necrosis Amt Small (1-33%) -Necrotic Tissue Type Adherent Slough -Texture (Анна-wound Skin Appearance) Scarring -Moisture (Анна-wound Skin Appearance) No Abnormality -Color (Анна-wound Skin Appearance) Erythema -Temperature (Анна-wound Skin No Abnormality Appearance) (Pt Warm) -Tenderness on Palpation (Анна-wound No Skin Appearance) -Ulcer Cleansing Wound Cleanser -Foul Odor after Cleansing No -Anesthetic Used 5% Lidocaine Gel 6-left middle plantar foot -Current Size (cm) - Length 0.1 -Current Size (cm) - Width 0.1 -Current Size (cm) - Depth 0.1 -Total Square Cm 0.01 -Photo Taken No -Exudate Amt None Present -Wound Margin Thickened -Granulation Amt Large (67-100%) -Granulation Quality Pale -Necrosis Amt None Present (0 %) -Structure Exposed N/A -Texture (Анна-wound Skin Appearance) Callus,Scarring -Moisture (Анна-wound Skin Appearance) No Abnormality -Color (Анна-wound Skin Appearance) No Abnormality -Temperature (Анна-wound Skin No Abnormality Appearance) (Pt Warm) -Tenderness on Palpation (Анна-wound No Skin Appearance) -Ulcer Cleansing Wound Cleanser -Anesthetic Used 5% Lidocaine Gel,Cetacaine 5-right 1st metatarsal -Current Size (cm) - Length 0.1 -Current Size (cm) - Width 0.1 -Current Size (cm) - Depth 0.1 -Total Square Cm 0.01 -Photo Taken No -Exudate Amt None Present -Wound Margin Thickened -Granulation Amt Large (67-100%) -Granulation Quality Mangum -Necrosis Amt None Present (0 %) -Structure Exposed N/A -Texture (Анна-wound Skin Appearance) Callus -Moisture (Анна-wound Skin Appearance) Dry/Scaly -Color (Анна-wound Skin Appearance) No Abnormality -Temperature (Анна-wound Skin No Abnormality Appearance) (Pt Warm) -Tenderness on Palpation (Анна-wound No Skin Appearance) -Ulcer Cleansing Wound Cleanser -Foul Odor after Cleansing No -Anesthetic Used 5% Lidocaine Gel #4 left medial hallux -Current Size (cm) - Length 0.5 -Current Size (cm) - Width 0.4 -Current Size (cm) - Depth 0.5 -Total Square Cm 0.20 -Photo Taken No -Maximum Distance #2 (cm) 0.3 -Circular Undermining Yes -Exudate Amt Small -Exudate Type Yellow/Green -Wound Margin Thickened -Granulation Amt None Present (0 %) -Necrosis Amt Small (1-33%) -Necrotic Tissue Type Adherent Slough -Structure Exposed Bone -Texture (Анна-wound Skin Appearance) Callus,Scarring -Moisture (Анна-wound Skin Appearance) No Abnormality -Color (Анна-wound Skin Appearance) No Abnormality -Temperature (Анна-wound Skin No Abnormality Appearance) (Pt Warm) -Tenderness on Palpation (Анна-wound No Skin Appearance) -Ulcer Cleansing Wound Cleanser -Foul Odor after Cleansing No -Anesthetic Used 5% Lidocaine Gel WC - Nurse 2 - General Ulcer CM Notes Start: 01/19/21 09:49 Freq: Status: Active Protocol: Activity Type Activity Date Activity User E-Sign Co-Sign Detail Recorded Client Recorded Date Recorded By Document 01/19/21 10:35 REJI [id number] 01/19/21 10:44 REJI 01/19/21 10:35 Wound Center Nurse 2 7-left 4th metatarsal foot -Time 10:36 -Correct Patient No -Correct Side, Site, Position No -Correct Procedure No -Procedure Performed No -Post Debridement (cm) - Length 0 -Post Debridement (cm) - Width 0 -Post Debridement (cm) - Depth 0 -Total Square (Post) (cm) 0 -Area of Debridement (cm) - Length 0 -Area of Debridement (cm) - Width 0 -Total Square (Area) (cm) 0 -Tunneling No -Wound/Ulcer Outcome Healed- Epithelialized -Ulcer Cleansing Rinsed/ Irrigated with Saline -Foul Odor after Cleansing No -Bioengineered Tissue No -Bleeding Controlled with Silver Nitrate -Offloading No -Treatment Response Procedure Tolerated Well -Debridement - Subq, 1st 20sq cm Yes 6-left middle plantar foot -Time 10:36 -Correct Patient No -Correct Side, Site, Position No -Correct Procedure No -Procedure Performed No -Post Debridement (cm) - Length 0 -Post Debridement (cm) - Width 0 -Post Debridement (cm) - Depth 0 -Total Square (Post) (cm) 0 -Area of Debridement (cm) - Length 0 -Area of Debridement (cm) - Width 0 -Total Square (Area) (cm) 0 -Tunneling No -Undermining/Tunneling No -Circular Undermining No -Wound/Ulcer Outcome Healed- Epithelialized -Ulcer Cleansing Rinsed/ Irrigated with Saline -Foul Odor after Cleansing No -Bioengineered Tissue No -Bleeding Controlled with Silver Nitrate -Offloading No -Treatment Response Procedure Tolerated Well -Debridement - Subq, 1st 20sq cm No 5-right 1st metatarsal -Time 10:37 -Correct Patient Yes -Correct Side, Site, Position Yes -Correct Procedure Yes -Procedure Performed Yes -Type of Procedure Debridement -Clinical Debridement Subcutaneous -Tissue Removed Subcutaneous -Post Debridement (cm) - Length 0.1 -Post Debridement (cm) - Width 0.1 -Post Debridement (cm) - Depth 4 -Total Square (Post) (cm) 0.01 -Area of Debridement (cm) - Length 0.1 -Area of Debridement (cm) - Width 0.1 -Total Square (Area) (cm) 0.01 -Tunneling No -Undermining/Tunneling No -Circular Undermining No -Wound/Ulcer Outcome Not Healed -Ulcer Cleansing Rinsed/ Irrigated with Saline -Foul Odor after Cleansing No -Bioengineered Tissue No -Bleeding Controlled with Pressure -Offloading No -Treatment Response Procedure Tolerated Well -Debridement - Subq, 1st 20sq cm Yes #4 left medial hallux -Time 10:37 -Correct Patient Yes -Correct Side, Site, Position Yes -Correct Procedure Yes -Procedure Performed Yes -Type of Procedure Debridement -Clinical Debridement Subcutaneous -Tissue Removed Subcutaneous -Post Debridement (cm) - Length 0.5 -Post Debridement (cm) - Width 0.5 -Post Debridement (cm) - Depth 0.2 -Total Square (Post) (cm) 0.25 -Area of Debridement (cm) - Length 0.5 -Area of Debridement (cm) - Width 0.5 -Total Square (Area) (cm) 0.25 -Tunneling No -Circular Undermining No -Wound/Ulcer Outcome Not Healed -Ulcer Cleansing Rinsed/ Irrigated with Saline -Foul Odor after Cleansing No -Bioengineered Tissue No -Bleeding Controlled with Pressure -Offloading No -Treatment Response Procedure Tolerated Well -Debridement - Subq, 1st 20sq cm No Pain Scale: 0-10 Numeric Is Patient Pain Free? Yes - Nurse 3 - General Ulcer D/C NN Start: 01/19/21 09:49 Freq: Status: Active Protocol: Activity Type Activity Date Activity User E-Sign Co-Sign Detail Recorded Client Recorded Date Recorded By Document 01/19/21 11:00 DL Desktop 01/19/21 11:01 DL 01/19/21 11:00 Wound Care Nurse 3 5-right 1st metatarsal -Ulcer Cleansing Wound Cleanser -Foul Odor after Cleansing No -Primary Dressing Applied Aquacel AG 4x4 -Primary Dressing Covered/Secured with Dry Gauze,Dry Gauze & Roll Gauze,Secured with Tape -Aquacel AG 4x4 1 #4 left medial hallux -Ulcer Cleansing Wound Cleanser -Foul Odor after Cleansing No -Other Dressing aquacel ag -Primary Dressing Covered/Secured with Dry Gauze & Roll Gauze, Secured with Tape Treatment Response Procedure Tolerated Well Pain Scale: 0-10 Numeric Is Patient Pain Free? Yes WC - Visit Discharge Discharge Condition Stable Ambulatory Status Ambulatory Transportation Private Auto Additional Wound Wound debrided: Subone metatarsal head Laterality: Left Type of Debridement: Excisional debridement Anesthesia Used: 4% Lidocaine Solution Depth: in the subcutaneous layer Percentage of wound debrided: 100 Instrument Used: 3mm curette and #15 blade Tissue Removed: Includes fibrous, devitalized, biofilm, callus and slough tissue Severity: Fat Layer Exposed Amount of bleeding with debridement: Mild Bleeding Controlled with: Pressure Patient tolerated procedure: Patient tolerated procedure well Assessment/Plan Assessment/Plan (1) Pressure ulcer of left foot, stage 4: CODE(S): L89.894 - Pressure ulcer of other site, stage 4 (2) Osteomyelitis: CODE(S): M86.9 - Osteomyelitis, unspecified QUALIFIERS: Osteomyelitis type: other acute Osteomyelitis location: foot Laterality: left Qualified Code(s): M86.172 - Other acute osteomyelitis, left ankle and foot (3) Ulcer of right foot with bone involvement without evidence of necrosis: CODE(S): L97.516 - Non-pressure chronic ulcer of other part of right foot with bone involvement without evidence of necrosis (4) Fat pad atrophy of foot: CODE(S): L90.9 - Atrophic disorder of skin, unspecified (5) Delayed wound healing: CODE(S): T14.8XXD - Other injury of unspecified body region, subsequent encounter (6) Steroid long-term use: (7) PAD (peripheral artery disease): CODE(S): I73.9 - Peripheral vascular disease, unspecified (8) Rheumatoid arthritis: CODE(S): M06.9 - Rheumatoid arthritis, unspecified QUALIFIERS: Rheumatoid arthritis location: foot Rheumatoid factor presence: unspecified presence Laterality: bilateral Qualified Code(s): M06.9 - Rheumatoid arthritis, unspecified PLAN: Patient seen and examined. She is noted to have healed left subtwo and 4 metatarsal head ulcerations. There continues to be concerning drainage from left subone ulceration site. Patient was noted to have seen Dr. Clements earlier just prior to her appointment. Upon discussion with Dr. Clements he stated that when he removed the dressing that there was some purulent drainage that came out of the left subone ulceration in which he cultured. He relates that he would start the patient on antibiotics. Discussed with Dr. Clements possibility of any kind of surgical intervention. Discussed that there is a very real possibility that patient would not be able to heal any kind of surgery and would only be making her problems worse and I would not recommend it at this time. Dr. Clements understood and will proceed with antibiotic therapy. Patient is noted to have gotten an offloading shoe inserts for both her slippers and her tennis shoes. Patient relates that she likes them and that she has had less pain ambulating with these. Discussed that she needs to continue to wear these. Discussed that the improvement noted in her wounds is likely largely contributed by these inserts offloading the areas. Discussed with patient going a more palliative wound care route with her chronic nonhealing ulcerations especially given significant comorbidities and treatment of healing with medications Debridement performed as noted bilateral. Verbal consent was obtained and she tolerated this well. LEAS 06/30/20 showed moderate distal small vessel disease bilaterally at the digits. The left foot was noted to have biphasic pulses with CRUZ of 1.27 and TBI of 0.37. The left PT was noncompressible. The right foot PT and DP were noncompressible and TBI of 0.4 with triphasic and biphasic pulses. Patient had procedure with Dr Oseguera 07/21/20. Patient reports that the procedure went well. Dr. Oseguera has no further interventions planned at this time. The etiology of her ulcers appears to be from pressure at sites of metatarsal heads as there is significant fat pad atrophy. Discussed with the patient the importance of proper shoe gear with good padding to supplement lost fat pad. This is most likely due to her rheumatoid arthritis, chronic prednisone treatment may also have a role in the nonhealing of the ulcers. Patient has been using offloaded diabetic shoe inserts that she paid for [id number] and picked up from the office last week. She relates improvement since starting these. Is noted that she has a pair for both her tennis shoes and her slippers that she wears at home. These are well-tolerated. Discussed importance of non-smoking, blood sugar control, weight management, offloading, proper nutrition, and hygiene to optimize healing potential. Discussed that her chronic steroid use for her RA can impact wound healing as well as impact her body's ability to mount an immune response. Discussed the importance of proper nutrition including getting enough protein in her diet to help with healing. Also her vascular disease may also be playing into her poor ability to heal. Bone biopsy 01/05/2021 results of the first metatarsal head on the left foot confirm diagnosis of osteomyelitis infection. Previously obtained MRI also showed osteomyelitis. Patient has undergone multiple rounds of antibiotic treatments per Dr. Clements in infectious disease for this. Surgical treatment options were also discussed with patient but it was decided that it was not worth the risk of potentially creating a larger wound that potentially more bacteria could then get into to infect the wound. Patient saw Dr. Steinberg for HBO evaluation. This was given prior to patient's recent heart attack and hospital admission. Patient will need to get cardiac clearance prior to being approved for HBO. This was not given at this time. We will potentially reconsider HBO therapy in the future if ever given cardiac clearance. 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 Encouraged protein rich diet and protein supplements. Discussed Vick supplementation. Patient is overall frail appearance with muscle atrophy noted. All questions answered. Continue wound care to foot ulcerations daily. To use Aquacel silver. To moisturize the legs and feet daily. Patient was given Tubigrip's for compression and edema control Follow-up in 1-2 weeks This note was generated with [employer] software. It may contain incorrect words, spelling, and punctuation that were not noted in checking the note before signing.
[2021-01-19 13:56] LABS: M R Staph aureus DNA By PCR Negative (Negative); Probe Check PASS; Specimen Processing Control PASS; Staph aureus DNA By PCR NEGATIVE (Negative)
--- NOTE | 2021-01-19 15:39 | PCM.PN.ID ---
Physical Exam Narrative Feeling ok. No fever. Foot about the same. Minimal pain, still some drainage. Const alert General Appearance: cooperative Resp normal air movement and clear to auscultation bilaterally Cardio regular rate and regular rhythm GI normal to inspection, nondistended, normoactive bowel sounds Skin Skin Narrative: L foot with purulence and tunneling on plantar surface over 1st metatarsal head. ID ID: Route of nutrition/ use of supplements: [] Nutritional Intake: [] IV Site: [] Fonseca Catheter: [] Assessment & Plan Assessment/Plan (1) Osteomyelitis, chronic, ankle or foot: PLAN: L foot osteo, recent wound cx with MRSE x2 and anaerobes. Poor surgical candidate. Re-swabbed this AM. Will start course with po linezolid and flagyl. May need to stop tramadol if still taking. Plan on 6 weeks total abx. Will check bmp, LFT, and cbc. Will follow, return to clinic in 2 weeks, d/w Dr. Cavanaugh.
--- NOTE | 2021-02-02 09:13 | PCM.WC.PN ---
History of Present Illness Date of Service: 02/02/21 Chief Complaint: Left 1st metatarsal ulceration with chronic refractory osteomyelitis of the left first metatarsal. History of Wound: Kylah is a 75-year-old female who was referred here for treatment bilateral feet ulcerations. Patient is noted to have significant fat pad atrophy likely secondary to her rheumatoid arthritis. Patient is on multiple medications for her rheumatoid arthritis which are impeding her wound healing. Patient is also prone to breakdown given lack of fat pad. Patient noted to have had MRIs which showed osteomyelitis and has been treated by Dr. Pantoja with antibiotic treatments. Patient is a poor surgical candidate given her poor healing status and multiple comorbidities. The patient has had vascular studies on 06/30/20 showed moderate distal small vessel disease bilaterally at the digits with some non compressible vessels. Patient saw her vascular surgeon, Dr Oseguera, who did intervention on the patient on 07/21/20. Dr. Oseguera has no further interventions planned at this time. She had MRI on 06/25/20 which showed osteomyelitis to left 1st metatarsal. Patient saw Dr Clements for treatment The patient is noted to be on prednisone and methotrexate for her rheumatoid arthritis. These are acknowledged to be possible inhibitors to wound healing. Patient noted to have painful feet due to her rheumatoid arthritis. Patient is also noted to have had recent heart attack and has been started on blood thinners for this. Patient has gotten offloading inserts to place in her tennis shoes as well as her slippers. Patient reports that his improved her pain when ambulating wearing these. She has had significant improvement of her ulceration since starting using these Progress of Wound: Improved Subjective Subjective Patient seen and examined resting comfortably. Patient denies any new pedal complaints. Patient denies any nausea, fever, chills, chest pain, shortness of breath, cough, streaking, purulence, vomiting. Patient continues to like the offloading inserts. She does not like the antibiotic she is on as she is not able to take any pain meds while on them. Objective Data Objective Data Vital Signs: Vital Signs Temp Pulse Resp BP 97.1 F L 77 16 152/40 H 01/19/21 09:49 01/06/21 00:30 01/06/21 00:30 01/06/21 00:30 Weight: 46.266 kg Body Mass Index (BMI) 18.6 Lab / Micro Data Micro: Microbiology 01/19/21 10:00 Wound Abcess - Toe Gram Stain - Final 01/19/21 10:00 Wound Abcess - Toe Wound Culture - Final Staphylococcus epidermidis 01/19/21 10:00 Wound Abcess - Toe Anaerobic Culture - Final Anaerobic cocci Physical Exam Narrative Const alert and no apparent distress General Appearance: cooperative and comfortable Patient has overall frail appearance Lymph Lymphatic: no lymphedema noted Resp normal respiratory effort Effort and Inspection: able to speak in complete sentences Extremity no calf tenderness, negative yasmine and baker sign No lower extremity edema General Extremity: tenderness to palpation palpable metatarsal heads. There is Significant fat pad atrophy noted with easily palpable metatarsal heads 1 through 5 bilaterally. Negative for clubbing or cyanosis or ecchymosis or erythema Vasc Peripheral Pulses: posterior tibial pulses absent and dorsalis pedis pulses present but diminished, normal capillary refill, no acute ischemic skin changes noted, cool temperature Skin General Skin Exam: dry flaky atrophic skin to entire bilateral lower extremities, absent hair growth noted; Negative for ecchymosis, eschar, pallor, rashes. Patient skin in general is in very poor condition especially since starting blood thinners. Her arms are noted to be extremely dark and discolored to her entire forearms. Wound Narrative: ulcers noted to plantar first metatarsal head left. Ulcerations to left sub second and sub fourth and right sub one metatarsal head have healed. The irritated erythematous area noted to plantar lateral fifth metatarsal head left has vastly improved. There is improvement of the left subfirst and fourth metatarsal head ulceration. Bone continues to be exposed. Serous drainage noted. No surrounding erythema or edema. No malodor, streaking, fluctuation, crepitus. Skin is atrophic and hairless. There is significant amount of fat pad atrophy noted to bilateral feet secondary to patient's rheumatoid arthritis. There is noted callus buildup within the ulceration site with and overlying the wounds. Peripheral callous noted to all ulcer and former ulcer sites. Minimal callus tissue noted to metatarsal heads plantarly left to 2 and 4 and 5 and right 1. Pain to palpation of plantar forefoot bilaterally Neuro Gait (Neuro): heel to toe Sensory Exam: extremities light-touch: Intact MSK Motor Exam: strength 5/5 throughout, ROM to foot and ankle joints within normal limits, significant fat pad atrophy with very easily palpable metatarsal heads bilaterally, muscle wasting noted Psych Appearance: appropriate Attitude: calm Debridement Note Debridement Note Wound debrided: Subfirst metatarsal head Laterality: Left Wound Grade/Stage: Stage IV Type of Debridement: Excisional debridement Anesthesia Used: 5% Lidocaine Gel Depth: to bone Percentage of wound debrided: 100 Instrument Used: 3mm curette Tissue Removed: includes fibrous, devitalized, biofilm, callus and slough tissue Severity: Necrosis of Bone Amount of bleeding with debridement: Mild Bleeding Controlled with: Pressure Patient tolerated procedure: Patient tolerated procedure well Post-Debridement Measurements and Additional Note: Wound Measurements and Assessment WC - Nurse 1 - General Ulcer Measurement Start: 01/19/21 09:49 Freq: Status: Active Protocol: Activity Type Activity Date Activity User E-Sign Co-Sign Detail Recorded Client Recorded Date Recorded By Document 02/02/21 09:58 DL [id number] 02/02/21 10:06 DL 02/02/21 09:58 Wound Center Nurse 1 [Ulcer Assessment] 5-right 1st metatarsal -Current Size (cm) - Length 0.1 -Current Size (cm) - Width 0.1 -Current Size (cm) - Depth 0.1 -Total Square Cm 0.01 -Photo Taken No -Exudate Amt None Present -Wound Margin Thickened -Granulation Amt Large (67-100%) -Granulation Quality Pale -Necrosis Amt None Present (0 %) -Structure Exposed N/A -Texture (Анна-wound Skin Appearance) Callus -Moisture (Анна-wound Skin Appearance Dry/Scaly ) -Color (Анна-wound Skin Appearance) No Abnormality -Temperature (Анна-wound Skin No Abnormality Appearance) (Pt Warm) -Tenderness on Palpation (Анна-wound No Skin Appearance) -Ulcer Cleansing Wound Cleanser -Foul Odor after Cleansing No -Anesthetic Used 5% Lidocaine Gel #4 left medial hallux -Current Size (cm) - Length 0.4 -Current Size (cm) - Width 0.4 -Current Size (cm) - Depth 0.4 -Total Square Cm 0.16 -Photo Taken No -Exudate Type Yellow/Green -Wound Margin Distinct, Outline Attached -Granulation Amt Medium (34-66%) -Granulation Quality [place] -Necrosis Amt Small (1-33%) -Necrotic Tissue Type Eschar -Structure Exposed Bone -Texture (Анна-wound Skin Appearance) Callus,Scarring -Moisture (Анна-wound Skin Appearance Dry/Scaly ) -Color (Анна-wound Skin Appearance) Assessed -Temperature (Анна-wound Skin No Abnormality Appearance) (Pt Warm) -Tenderness on Palpation (Анна-wound No Skin Appearance) -Anesthetic Used 5% Lidocaine Gel WC - Nurse 2 - General Ulcer CM Notes Start: 01/19/21 09:49 Freq: Status: Active Protocol: Activity Type Activity Date Activity User E-Sign Co-Sign Detail Recorded Client Recorded Date Recorded By Document 02/02/21 10:40 REJI [id number] 02/02/21 10:48 REJI 02/02/21 10:40 Wound Center Nurse 2 [Procedure/Treatment] 5-right 1st metatarsal -Correct Patient No -Correct Side, Site, Position No -Correct Procedure No -Procedure Performed No -Post Debridement (cm) - Length 0 -Post Debridement (cm) - Width 0 -Post Debridement (cm) - Depth 0 -Total Square (Post) (cm) 0 -Area of Debridement (cm) - Length 0 -Area of Debridement (cm) - Width 0 -Total Square (Area) (cm) 0 -Wound/Ulcer Outcome Healed- Epithelialized #4 left medial hallux -Time 10:42 -Correct Patient Yes -Correct Side, Site, Position Yes -Correct Procedure Yes -Procedure Performed Yes -Type of Procedure Incision & Drainage -Clinical Debridement Subcutaneous -Tissue Removed Subcutaneous -Post Debridement (cm) - Length 0.4 -Post Debridement (cm) - Width 0.5 -Post Debridement (cm) - Depth 0.3 -Total Square (Post) (cm) 0.20 -Area of Debridement (cm) - Length 0.4 -Area of Debridement (cm) - Width 0.5 -Total Square (Area) (cm) 0.20 -Tunneling No -Undermining/Tunneling No -Circular Undermining No -Wound/Ulcer Outcome Not Healed -Ulcer Cleansing Rinsed/ Irrigated with Saline -Foul Odor after Cleansing No -Bioengineered Tissue No -Bleeding Controlled with Pressure -Offloading No -Treatment Response Procedure Tolerated Well -Debridement - Subq, 1st 20sq cm Yes [See Physician Procedure note for Specifics] Pain Scale: 0-10 Numeric [Pain] -Is Patient Pain Free? Yes SHAHANA - Nurse 3 - General Ulcer D/C NN Start: 01/19/21 09:49 Freq: Status: Active Protocol: Activity Type Activity Date Activity User E-Sign Co-Sign Detail Recorded Client Recorded Date Recorded By Document 02/02/21 10:55 TARI [id number] 02/02/21 10:57 DL 02/02/21 10:55 Wound Care Nurse 3 [Wound Dressing] #4 left medial hallux -Ulcer Cleansing Rinsed/ Irrigated with Saline -Foul Odor after Cleansing No -Primary Dressing Applied Aquacel AG 2x2 -Primary Dressing Covered/Secured Dry Gauze & with Roll Gauze, Secured with Tape -Aquacel AG 2x2 1 [Post Procedure Tolerated] -Treatment Response Procedure Tolerated Well Pain Scale: 0-10 Numeric [Pain] -Is Patient Pain Free? Yes WC - Visit Discharge [Visit Discharge Information] -Discharge Condition Stable -Ambulatory Status Ambulatory -Transportation Private Auto Assessment/Plan Assessment/Plan (1) Pressure ulcer of left foot, stage 4: CODE(S): L89.894 - Pressure ulcer of other site, stage 4 (2) Osteomyelitis: CODE(S): M86.9 - Osteomyelitis, unspecified QUALIFIERS: Laterality: left Osteomyelitis location: foot Osteomyelitis type: other acute Qualified Code(s): M86.172 - Other acute osteomyelitis, left ankle and foot (3) Fat pad atrophy of foot: CODE(S): L90.9 - Atrophic disorder of skin, unspecified (4) Delayed wound healing: CODE(S): T14.8XXD - Other injury of unspecified body region, subsequent encounter (5) Steroid long-term use: (6) PAD (peripheral artery disease): CODE(S): I73.9 - Peripheral vascular disease, unspecified (7) Rheumatoid arthritis: CODE(S): M06.9 - Rheumatoid arthritis, unspecified QUALIFIERS: Laterality: bilateral Rheumatoid arthritis location: foot Rheumatoid factor presence: unspecified presence Qualified Code(s): M06.9 - Rheumatoid arthritis, unspecified PLAN: Patient seen and examined. She is noted to have healed all ulcerations except left subone metatarsal head. She continues to use the offloading inserts with significant improvement noted since beginning use. Patient was started on linezolid and Flagyl per Dr. Clements. Patient cultures from 01/19/2021 demonstrated Staphylococcus epididymis and anaerobic cocci Patient is noted to have gotten an offloading shoe inserts for both her slippers and her tennis shoes. Patient relates that she likes them and that she has had less pain ambulating with these. Discussed that she needs to continue to wear these. Discussed that the improvement noted in her wounds is likely largely contributed by these inserts offloading the areas. Discussed with patient going a more palliative wound care route with her chronic nonhealing ulcerations especially given significant comorbidities and treatment of healing with medications Debridement performed as noted. Verbal consent was obtained and she tolerated this well. LEAS 06/30/20 showed moderate distal small vessel disease bilaterally at the digits. The left foot was noted to have biphasic pulses with CRUZ of 1.27 and TBI of 0.37. The left PT was noncompressible. The right foot PT and DP were noncompressible and TBI of 0.4 with triphasic and biphasic pulses. Patient had procedure with Dr Oseguera 07/21/20. Patient reports that the procedure went well. Dr. Oseguear has no further interventions planned at this time. The etiology of her ulcers appears to be from pressure at sites of metatarsal heads as there is significant fat pad atrophy. Discussed with the patient the importance of proper shoe gear with good padding to supplement lost fat pad. This is most likely due to her rheumatoid arthritis, chronic prednisone treatment may also have a role in the nonhealing of the ulcers. Patient has been using offloaded diabetic shoe inserts that she paid for [id number] and picked up from the office last week. She relates improvement since starting these. Is noted that she has a pair for both her tennis shoes and her slippers that she wears at home. These are well-tolerated. Discussed importance of non-smoking, blood sugar control, weight management, offloading, proper nutrition, and hygiene to optimize healing potential. Discussed that her chronic steroid use for her RA can impact wound healing as well as impact her body's ability to mount an immune response. Discussed the importance of proper nutrition including getting enough protein in her diet to help with healing. Also her vascular disease may also be playing into her poor ability to heal. Bone biopsy 01/05/2021 results of the first metatarsal head on the left foot confirm diagnosis of osteomyelitis infection. Previously obtained MRI also showed osteomyelitis. Patient has undergone multiple rounds of antibiotic treatments per Dr. Clements in infectious disease for this. Surgical treatment options were also discussed with patient but it was decided that it was not worth the risk of potentially creating a larger wound that potentially more bacteria could then get into to infect the wound. Patient is a poor surgical candidate. Patient saw Dr. Steinberg for HBO evaluation. This was given prior to patient's recent heart attack and hospital admission. Patient will need to get cardiac clearance prior to being approved for HBO. This was not given at this time. We will potentially reconsider HBO therapy in the future if ever given cardiac clearance. Patient voices she has an appointment with her human services professional in February. Encouraged protein rich diet and protein supplements. Discussed Vick supplementation. Patient is overall frail appearance with muscle atrophy noted. All questions answered. Continue wound care to foot ulcerations daily. To use Aquacel silver. To moisturize the legs and feet daily. Patient was given Tubigrip's for compression and edema control Follow-up in 2 weeks This note was generated with [employer] dictation software. It may contain incorrect words, spelling, and punctuation that were not noted in checking the note before signing.
[2021-02-02 09:58] VITALS: BP 137/85; PULSE 84; RESP 20; TEMP 525.5; TEMP 978; BMI 18.6
== END 2021-02-04 23:59 ==
LOC: WC 10:00
PROVIDERS: PCP Physician Assistant; Visit Provider Podiatrist Foot & Ankle Surgery
DX: L89.894 Pressure ulcer of other site, stage 4 (principal); M86.172 Other acute osteomyelitis, left ankle and foot; E11.51 Type 2 diabetes mellitus with diabetic peripheral angiopathy without gangrene; L90.9 Atrophic disorder of skin, unspecified; T14.8XXD Other injury of unspecified body region, subsequent encounter; I73.9 Peripheral vascular disease, unspecified; M06.9 Rheumatoid arthritis, unspecified; Z79.52 Long term (current) use of systemic steroids; I25.2 Old myocardial infarction; Z79.01 Long term (current) use of anticoagulants; E11.621 Type 2 diabetes mellitus with foot ulcer; L97.516 Non-pressure chronic ulcer of other part of right foot with bone involvement without evidence of necrosis; E11.69 Type 2 diabetes mellitus with other specified complication
CPT/HCPCS: 11042; 87070; 87075; 87077; 87186; 87205; 87640

== ENCOUNTER 2021-03-03 10:30 | Outpatient (RCR) | payer MEDICARE, SELFPAY ==
[2021-02-05 00:24] VITALS: BP 137/85; PULSE 84; RESP 20; TEMP 525.5; TEMP 978; BMI 18.6
[2021-02-16 10:18] VITALS: BP 151/76; PULSE 86; RESP 18; TEMP 36.7; BMI 18.6
--- NOTE | 2021-02-16 11:12 | PN.PCM_ITS ---
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 History of Wound: Kylah is a 75-year-old female who was referred here for treatment bilateral feet ulcerations. Patient is noted to have significant fat pad atrophy likely secondary to her rheumatoid arthritis. Patient is on multiple medications for her rheumatoid arthritis which are impeding her wound healing. Patient is also prone to breakdown given lack of fat pad. Patient noted to have had MRIs which showed osteomyelitis and has been treated by Dr. Pantoja with antibiotic treatments. Patient is a poor surgical candidate given her poor healing status and multiple comorbidities. The patient has had vascular studies on 06/30/20 showed moderate distal small vessel disease bilaterally at the digits with some non compressible vessels. Patient saw her vascular surgeon, Dr Oseguera, who did intervention on the patient on 07/21/20. Dr. Oseguera has no further interventions planned at this time. She had MRI on 06/25/20 which showed osteomyelitis to left 1st metatarsal. Patient saw Dr Clements for treatment The patient is noted to be on prednisone and methotrexate for her rheumatoid arthritis. These are acknowledged to be possible inhibitors to wound healing. Patient noted to have painful feet due to her rheumatoid arthritis. Patient is also noted to have had recent heart attack and has been started on blood thinners for this. Patient has gotten offloading inserts to place in her tennis shoes as well as her slippers. Patient reports that his improved her pain when ambulating wearing these. She has had significant improvement of her ulceration since starting using these 01/19/21 cultures show anaerobic cocci and staph epi. Patient has followed up with Dr Clements with infectious disease over infection. Progress of Wound: stable, new abrasions/preulcerative area Subjective Subjective Patient seen and examined resting comfortably. Patient denies any new pedal complaints. Patient denies any nausea, fever, chills, chest pain, shortness of breath, cough, streaking, purulence, vomiting. Patient relates for the last 2 weeks she has had significant amount of fatigue. She is unsure if this is related to the antibiotics she has started. She relates that she is expecting a call from Dr. Clements's office from recent blood work later this week as well as having a follow-up appointment with her greaser and oiler tomorrow Objective Data Objective Data Vital Signs: Vital Signs Temp Pulse Resp BP 98.1 F 86 18 151/76 H 02/16/21 10:18 02/16/21 10:18 02/16/21 10:18 02/16/21 10:18 Weight: 46.266 kg Body Mass Index (BMI) 18.6 Physical Exam Narrative Const alert and no apparent distress General Appearance: cooperative and comfortable Patient has overall frail appearance Lymph Lymphatic: no lymphedema noted Resp normal respiratory effort Effort and Inspection: able to speak in complete sentences Extremity no calf tenderness, negative yasmine and baker sign No lower extremity edema General Extremity: tenderness to palpation palpable metatarsal heads. There is Significant fat pad atrophy noted with easily palpable metatarsal heads 1 through 5 bilaterally. Negative for clubbing or cyanosis or ecchymosis or erythema Vasc Peripheral Pulses: posterior tibial pulses absent and dorsalis pedis pulses present but diminished, normal capillary refill, no acute ischemic skin changes noted, cool temperature Skin General Skin Exam: dry flaky atrophic skin to entire bilateral lower extremities, absent hair growth noted; Negative for ecchymosis, eschar, pallor, rashes. Patient skin in general is in very poor condition especially since st arting blood thinners. Her arms are noted to be extremely dark and discolored to her entire forearms. Wound Narrative: ulcers noted to plantar first metatarsal head left. U lcerations to left sub second and sub fourth and right sub one metatarsal head have healed. The irritated erythematous preulcerative area noted to dorsal lateral fifth metatarsal head with surrounding erythema left subfirst metatarsal head ulceration. Bone continues to be exposed. Less serous drainage noted. No surrounding erythema or edema. No malodor, streaking, fluctuation, crepitus. Skin is atrophic and hairless. There is significant amount of fat pad atrophy noted to bilateral feet secondary to patient's rheumatoid arthritis. There is noted minimal callus at previous ulceration sites. Pain to palpation of plantar forefoot bilaterally Dorsal left midfoot noted to have abrasion with ecchymosis without drainage or open wound. There is significant increase in dorsal pedal edema noted. Neuro Gait (Neuro): heel to toe Sensory Exam: extremities light-touch: Intact MSK Motor Exam: strength 5/5 throughout, ROM to foot and ankle joints within normal limits, significant fat pad atrophy with very easily palpable metatarsal heads bilaterally, muscle wasting noted Psych Appearance: appropriate Attitude: calm Debridement Note Debridement Note Wound debrided: Plantar first metatarsal head Laterality: Left Wound Grade/Stage: 4 Type of Debridement: Excisional debridement Anesthesia Used: 4% Lidocaine Solution Depth: to bone (Debrided to subcu) Percentage of wound debrided: 100 Instrument Used: 3mm curette Tissue Removed: includes fibrous, devitalized, biofilm, callus and slough tissue Severity: Necrosis of Bone Amount of bleeding with debridement: Mild Bleeding Controlled with: Pressure Patient tolerated procedure: Patient tolerated procedure well Post-Debridement Measurements and Additional Note: Post-Debridement Measurements/Treatment - Nurse 1 - General Ulcer Assessment Start: 02/16/21 10:18 Freq: Status: Active Protocol: GEORGE Activity Type Activity Date Activity User E-Sign Co-Sign Detail Recorded Client Recorded Date Recorded By Document 02/16/21 10:18 DL Desktop 02/16/21 10:27 DL 02/16/21 10:18 WC - Today's Visit Information Type of service Follow-up Visit (Physician/METHODS STUDY ANALYST ) Arrival Mode Ambulatory, Wheelchair Transfer Assistance Manual Transfer Assist (Other) x1 Patient Identification Verified (Name & Yes ) Patient Requires Transmission-Based No Precautions Height and Weight Body Mass Index (BMI) 18.6 BMI Classification Normal Vital Signs Temperature (97.8 F-99.1 F) 98.1 F Temperature Source Temporal Pulse Rate (60-100) 86 Pulse Location Monitor Respiratory Rate (12-18) 18 Respiratory rate source Observation Blood Pressure (90/60-120/80) 151/76 H Blood Pressure Mean (mm Hg) 101 Source Monitor History Since Last Visit- (Skip if this is Patient's initial visit) Have you changed medications since your No last visit? Any new allergies or adverse reactions No Had a fall/change in ADL's that may No increase risk of falls Signs or symptoms of abuse and/or No neglect since last visit Have you been in the hospital since your No last visit? Has dressing in place as prescribed Yes Has compression in place as prescribed N/A Has offloadiing in place as prescribed Yes Experienced any changes in pain level or No management Left Footwear Custom Shoe Right Footwear Custom Shoe Pain Scale: 0-10 Numeric Is Patient Pain Free? Yes - Nurse 1 - General Ulcer Measurement Start: 02/16/21 10:18 Freq: Status: Active Protocol: Activity Type Activity Date Activity User E-Sign Co-Sign Detail Recorded Client Recorded Date Recorded By Document 02/16/21 10:18 DL Desktop 02/16/21 10:27 DL 02/16/21 10:18 Wound Center Nurse 1 #8- L LAT FOOT -Combined with other wound No -Current Size (cm) - Length 0.4 -Current Size (cm) - Width 0.3 -Current Size (cm) - Depth 0.1 -Total Square Cm 0.12 -Date of Last Picture (Recall this 02/16/21 field) -Photo Taken Yes -Epithelialization None Present -Tunneling No -Undermining/Tunneling No -Circular Undermining No -Exudate Amt None Present -Wound Margin Distinct, Outline Attached -Granulation Amt None Present (0 %) -Slough/Fibrin Yes -Necrosis Amt Large (67-100%) -Necrotic Tissue Type Adherent Slough -Texture (Анна-wound Skin Appearance) Assessed -Moisture (Анна-wound Skin Appearance) Assessed -Color (Анна-wound Skin Appearance) Assessed, Erythema -Temperature (Анна-wound Skin No Abnormality Appearance) (Pt Warm) -Tenderness on Palpation (Анна-wound Yes Skin Appearance) -Ulcer Cleansing Rinsed/ Irrigated with Saline -Foul Odor after Cleansing No -Anesthetic Used 5% Lidocaine Gel #4 left medial hallux -Combined with other wound No -Current Size (cm) - Length 0.6 -Current Size (cm) - Width 0.6 -Current Size (cm) - Depth 0.4 -Total Square Cm 0.36 -Photo Taken No -Epithelialization None Present -Tunneling No -Undermining/Tunneling Yes -Undermining/Tunneling Starts (O'clock 12 ) -Undermining/Tunneling Ends (O'clock) 12 -Maximum Distance (cm) 0.4 -Circular Undermining Yes -Exudate Amt Medium -Exudate Type Purulent -Wound Margin Distinct, Outline Attached -Granulation Amt Large (67-100%) -Granulation Quality Red -Slough/Fibrin Yes -Necrosis Amt Small (1-33%) -Necrotic Tissue Type Adherent Slough -Structure Exposed Bone -Texture (Анна-wound Skin Appearance) Assessed, Scarring -Moisture (Анна-wound Skin Appearance) Assessed -Color (Анна-wound Skin Appearance) Assessed -Temperature (Анна-wound Skin No Abnormality Appearance) (Pt Warm) -Tenderness on Palpation (Анна-wound Yes Skin Appearance) -Ulcer Cleansing Rinsed/ Irrigated with Saline -Foul Odor after Cleansing No -Anesthetic Used 4% Lidocaine Solution WC - Nurse 2 - General Ulcer CM Notes Start: 02/16/21 10:18 Freq: Status: Active Protocol: Activity Type Activity Date Activity User E-Sign Co-Sign Detail Recorded Client Recorded Date Recorded By Document 02/16/21 10:42 REJI [id number] 02/16/21 10:48 REJI 02/16/21 10:42 Wound Center Nurse 2 #8- L LAT FOOT -Time 10:43 -Correct Patient No -Correct Side, Site, Position No -Correct Procedure No -Procedure Performed No -Post Debridement (cm) - Length 0.1 -Post Debridement (cm) - Width 0.1 -Post Debridement (cm) - Depth 0.1 -Total Square (Post) (cm) 0.01 -Area of Debridement (cm) - Length 0.1 -Area of Debridement (cm) - Width 0.1 -Total Square (Area) (cm) 0.01 -Tunneling No -Undermining/Tunneling No -Circular Undermining No -Wound/Ulcer Outcome Not Healed -Ulcer Cleansing Rinsed/ Irrigated with Saline -Foul Odor after Cleansing No -Bioengineered Tissue No -Bleeding Controlled with Pressure -Offloading No -Treatment Response Procedure Tolerated Well -Debridement - Subq, 1st 20sq cm No #4 left medial hallux -Time 10:44 -Correct Patient Yes -Correct Side, Site, Position Yes -Correct Procedure Yes -Procedure Performed Yes -Type of Procedure Debridement -Clinical Debridement Subcutaneous -Tissue Removed Subcutaneous -Post Debridement (cm) - Length 0.5 -Post Debridement (cm) - Width 0.6 -Post Debridement (cm) - Depth 0.4 -Total Square (Post) (cm) 0.30 -Area of Debridement (cm) - Length 0.5 -Area of Debridement (cm) - Width 0.6 -Total Square (Area) (cm) 0.30 -Tunneling No -Undermining/Tunneling No -Circular Undermining No -Wound/Ulcer Outcome Not Healed -Ulcer Cleansing Rinsed/ Irrigated with Saline -Foul Odor after Cleansing No -Bioengineered Tissue No -Bleeding Controlled with Pressure -Offloading No -Treatment Response Procedure Tolerated Well -Debridement - Subq, 1st 20sq cm Yes Pain Scale: 0-10 Numeric Is Patient Pain Free? Yes WC - Nurse 3 - General Ulcer D/C NN Start: 02/16/21 10:18 Freq: Status: Active Protocol: Activity Type Activity Date Activity User E-Sign Co-Sign Detail Recorded Client Recorded Date Recorded By Document 02/16/21 11:04 MW Desktop 02/16/21 11:05 MW 02/16/21 11:04 Wound Care Nurse 3 #8- L LAT FOOT -Ulcer Cleansing Rinsed/ Irrigated with Saline -Foul Odor after Cleansing No -Negative Pressure Wound Therapy N/A -Primary Dressing Covered/Secured with Dry Gauze & Roll Gauze, Secured with Tape #4 left medial hallux -Ulcer Cleansing Not Cleansed -Foul Odor after Cleansing No -Negative Pressure Wound Therapy N/A -Primary Dressing Applied Aquacel AG 2x2 -Primary Dressing Covered/Secured with Dry Gauze & Roll Gauze, Secured with Tape -Aquacel AG 2x2 1 Treatment Response Procedure Tolerated Well Pain Scale: 0-10 Numeric Is Patient Pain Free? Yes Teaching: Wound Center Dressing Your Wound -Person Taught Patient,Family -Teaching Method Discussion, Demonstration -Response to teaching Verbalize understanding WC - Visit Discharge Discharge Condition Stable Ambulatory Status Wheelchair Transportation Private Auto Accompanied by Medication Reconcilliation completed & No provided to patient/care provider Clinical Summary of Care Provided Yes Assessment/Plan Assessment/Plan (1) Pressure ulcer of toe of left foot, stage 4: CODE(S): L89.894 - Pressure ulcer of other site, stage 4 (2) Rheumatoid arthritis: CODE(S): M06.9 - Rheumatoid arthritis, unspecified QUALIFIERS: Laterality: bilateral Rheumatoid arthritis location: foot Rheumatoid factor presence: unspecified presence Qualified Code(s): M06.9 - Rheumatoid arthritis, unspecified (3) Fat pad atrophy of foot: CODE(S): L90.9 - Atrophic disorder of skin, unspecified (4) Osteomyelitis, chronic, ankle or foot: CODE(S): M86.679 - Other chronic osteomyelitis, unspecified ankle and foot (5) Left foot pain: CODE(S): M79.672 - Pain in left foot (6) Pain in right foot: CODE(S): M79.671 - Pain in right foot (7) Delayed wound healing: CODE(S): T14.8XXD - Other injury of unspecified body region, subsequent encounter (8) Steroid long-term use: (9) PAD (peripheral artery disease): CODE(S): I73.9 - Peripheral vascular disease, unspecified (10) Pressure ulcer of right foot, stage 4: CODE(S): L89.894 - Pressure ulcer of other site, stage 4 PLAN: Patient seen and examined. She is noted to have healed all ulcerations except left subone metatarsal head. She continues to use the offloading inserts with significant improvement noted since beginning use. She has significant increase in swelling to dorsal foot with abrasion/ecchymosis from rubbing on shoe. She is noted to start tubigrip at ankle level siting not able to fit it in shoe. Discussed that starting at toe would help with the foot swelling. Discussed the swelling may be cardiac in origin. She is noted to have apoitnment wit cardiology tomorrow. She is to keep appointment. She also is noted to have pre ulcerative area to dorsal lateral 5th Metatarsal head. Patient was started on linezolid and Flagyl per Dr. Clements. Patient cultures from 01/19/2021 demonstrated Staphylococcus epididymis and anaerobic cocci Patient is noted to have gotten an offloading shoe inserts for both her slippers and her tennis shoes. Patient relates that she likes them and that she has had less pain ambulating with these. Discussed that she needs to continue to wear these. Discussed that the improvement noted in her wounds is likely largely contributed by these inserts offloading the areas. Discussed with patient going a more palliative wound care route with her chronic nonhealing ulcerations especially given significant comorbidities and treatment of healing with medications Debridement performed as noted. Verbal consent was obtained and she tolerated this well. LEAS 06/30/20 showed moderate distal small vessel disease bilaterally at the digits. The left foot was noted to have biphasic pulses with CRUZ of 1.27 and TBI of 0.37. The left PT was noncompressible. The right foot PT and DP were noncompressible and TBI of 0.4 with triphasic and biphasic pulses. Patient had procedure with Dr Oseguera 07/21/20. Patient reports that the procedure went well. Dr. Oseguera has no further interventions planned at this time. The etiology of her ulcers appears to be from pressure at sites of metatarsal heads as there is significant fat pad atrophy. Discussed with the patient the importance of proper shoe gear with good padding to supplement lost fat pad. This is most likely due to her rheumatoid arthritis, chronic prednisone treatment may also have a role in the nonhealing of the ulcers. Patient has been using offloaded diabetic shoe inserts that she paid for [id number] and picked up from the office last week. She relates improvement since starting these. Is noted that she has a pair for both her tennis shoes and her slippers that she wears at home. These are well-tolerated. Discussed importance of non-smoking, blood sugar control, weight management, offloading, proper nutrition, and hygiene to optimize healing potential. Discussed that her chronic steroid use for her RA can impact wound healing as well as impact her body's ability to mount an immune response. Discussed the importance of proper nutrition including getting enough protein in her diet to help with healing. Also her vascular disease may also be playing into her poor ability to heal. Bone biopsy 01/05/2021 results of the first metatarsal head on the left foot confirm diagnosis of osteomyelitis infection. Previously obtained MRI also showed osteomyelitis. Patient has undergone multiple rounds of antibiotic treatments per Dr. Clements in infectious disease for this. Surgical treatment options were also discussed with patient but it was decided that it was not worth the risk of potentially creating a larger wound that potentially more bacteria could then get into to infect the wound. Patient is a poor surgical candidate. Patient saw Dr. Steinberg for HBO evaluation. This was given prior to patient's recent heart attack and hospital admission. Patient will need to get cardiac clearance prior to being approved for HBO. This was not given at this time. We will potentially reconsider HBO therapy in the future if ever given cardiac clearance. Patient voices she has an appointment with her greaser and oiler in February. Encouraged protein rich diet and protein supplements. Discussed Vick supplementation. Patient is overall frail appearance with muscle atrophy noted. Discussed importance of keeing appointment with Dr Clements on and cardiology tomorrow especially with new onset fatigue. Patient is aware I will be leaving the wound care center. She expresses desire to continue care with Dr Warner. To schedule continued care with her. All questions answered. Continue wound care to foot ulcerations daily. To use Aquacel silver. To moisturize the legs and feet daily. Patient was given Tubigrip's for compression and edema control. To pad and protect abrasion and preulcerative area Follow-up in 2 weeks This note was generated with [employer] dictation software. It may contain incorrect words, spelling, and punctuation that were not noted in checking the note before signing.
[2021-03-03 10:31] VITALS: BP 137/95; PULSE 94; RESP 20; TEMP 36.7; BMI 18.6
--- NOTE | 2021-03-03 11:24 | PCM.WC.PN ---
History of Present Illness Date of Service: 03/03/21 Chief Complaint: Left 1st metatarsal ulceration with chronic refractory osteomyelitis of the left first metatarsal. History of Wound: Kylah is a 75-year-old female who was referred here for treatment bilateral feet ulcerations. Patient is noted to have significant fat pad atrophy likely secondary to her rheumatoid arthritis. Patient is on multiple medications for her rheumatoid arthritis which are impeding her wound healing. Patient is also prone to breakdown given lack of fat pad. Patient noted to have had MRIs which showed osteomyelitis and has been treated by Dr. Clements with antibiotic treatments. Patient is a poor surgical candidate given her poor healing status and multiple comorbidities. The patient has had vascular studies on 06/30/20 showed moderate distal small vessel disease bilaterally at the digits with some non compressible vessels. Patient saw her vascular surgeon, Dr Oseguera, who did intervention on the patient on 07/21/20. Dr. Oseguera has no further interventions planned at this time. She had MRI on 06/25/20 which showed osteomyelitis to left 1st metatarsal. The patient is noted to be on prednisone and methotrexate for her rheumatoid arthritis. These are acknowledged to be possible inhibitors to wound healing. Patient noted to have painful feet due to her rheumatoid arthritis. Patient is also noted to have had recent heart attack and has been started on blood thinners for this. More recently, 01/19/21 cultures show anaerobic cocci and staph epi. Patient has followed up with Dr Clements with infectious disease over infection. She offloads with Plastizote accommodative inserts in her house slippers. She is a fall risk and has difficulty walking and other offloading devices. She has tried other devices. She reports that she fell within the past week and is experiencing extreme fatigue. She was concerned this was secondary to the antibiotics however this is not suspected. She did reach out to ID specialist. She also reach out to her high school admissions representative in which additional intervention is not recommended. The patient does report she is starting to get her energy back the last 2 days. She hit her right foot on some furniture and is not exactly sure what her mechanism of injury was within the past week at home. She has significant bruising. Progress of Wound: stable Objective Data Objective Data Vital Signs: Vital Signs Temp Pulse Resp BP 98.1 F 94 20 H 137/95 H 03/03/21 10:31 03/03/21 10:31 03/03/21 10:31 03/03/21 10:31 Weight: 46.266 kg Body Mass Index (BMI) 18.6 Physical Exam Narrative Const alert and no apparent distress General Appearance: cooperative and comfortable Patient has overall frail appearance Extremity no calf tenderness, negative yasmine and baker sign No lower extremity edema General Extremity: tenderness to palpation palpable metatarsal heads. There is Significant fat pad atrophy noted with easily palpable metatarsal heads 1 through 5 bilaterally. Negative for clubbing or cyanosis or ecchymosis or erythema Vasc Peripheral Pulses: posterior tibial pulses absent and dorsalis pedis pulses present but diminished, normal capillary refill, no acute ischemic skin changes noted, cool temperature Skin General Skin Exam: dry flaky atrophic skin to entire bilateral lower extremities, absent hair growth noted; Negative for ecchymosis, eschar, pallor, rashes. Patient skin in general is in very poor condition especially since starting blood thinners. Her arms are noted to be extremely dark and discolored to her entire forearms. Wound Narrative: ulcers noted to plantar first metatarsal head left and medial forefoot left. left subfirst metatarsal head ulceration. Bone continues to be exposed. Less serous drainage noted. No surrounding erythema or edema. No malodor, streaking, fluctuation, crepitus. Skin is atrophic and hairless. There is significant amount of fat pad atrophy noted to bilateral feet secondary to patient's rheumatoid arthritis. There is noted minimal callus at previous ulceration sites. Pain to palpation of plantar forefoot bilaterally new: Right forefoot ecchymosis to all digits and forefoot with adjacent edema Neuro Gait (Neuro): heel to toe. Guarded, slow, and unsteady Sensory Exam: extremities light-touch: Intact MSK muscle wasting noted No skin tenting noted bilateral. Pain to palpation to dorsal second and third distal metatarsal region and not with passive range of motion of the lesser metatarsophalangeal joints. No fluctuance or bogginess noted bilateral. Debridement Note Debridement Note Wound debrided: Left subfirst metatarsal head and medial forefoot Wound Grade/Stage: Type of Debridement: Excisional debridement Anesthesia Used: 4% Lidocaine Solution Depth: in the subcutaneous layer Percentage of wound debrided: 100 Instrument Used: #15 blade Tissue Removed: fibrous, devitalized subcutaneous, biofilm, slough Severity: Fat Layer Exposed Amount of bleeding with debridement: Mild Bleeding Controlled with: Pressure Patient tolerated procedure: Patient tolerated procedure well Post-Debridement Measurements and Additional Note: Post-Debridement Measurements/Treatment - Nurse 1 - General Ulcer Assessment Start: 02/16/21 10:18 Freq: Status: Active Protocol: GEORGE Activity Type Activity Date Activity User E-Sign Co-Sign Detail Recorded Client Recorded Date Recorded By Document 02/16/21 10:18 DL Desktop 02/16/21 10:27 DL Document 03/03/21 10:31 DL [id number] 03/03/21 10:41 DL Edit Result 03/03/21 10:31 DL (1) [id number] 03/03/21 10:43 DL (1) Comment => C/O General => weakness,seen => high school admissions representative, Fell => last week. 02/16/21 03/03/21 10:18 10:31 - Today's Visit Information Type of service Follow-up Visit Follow-up Visit (Physician/STATE AUDITOR (Physician/STATE AUDITOR ) ) Arrival Mode Ambulatory, Ambulatory, Wheelchair Wheelchair Transfer Assistance Manual Manual Transfer Assist (Other) x1 x1 Patient Identification Verified (Name & Yes Yes ) Patient Requires Transmission-Based No No Precautions Height and Weight Body Mass Index (BMI) 18.6 18.6 BMI Classification Normal Normal Vital Signs Temperature (97.8 F-99.1 F) 98.1 F 98.1 F Temperature Source Temporal Temporal Pulse Rate (60-100) 86 94 Pulse Location Monitor Monitor Respiratory Rate (12-18) 18 20 H Respiratory rate source Observation Observation Blood Pressure (90/60-120/80) 151/76 H 137/95 H Blood Pressure Mean (mm Hg) 101 109 Source Monitor Monitor Comment C/O General weakness,seen high school admissions representative, Fell last week. History Since Last Visit- (Skip if this is Patient's initial visit) Have you changed medications since your No No last visit? Any new allergies or adverse reactions No No Had a fall/change in ADL's that may No No increase risk of falls Signs or symptoms of abuse and/or No No neglect since last visit Have you been in the hospital since your No No last visit? Has dressing in place as prescribed Yes Yes Has compression in place as prescribed N/A N/A Has offloadiing in place as prescribed Yes Yes Experienced any changes in pain level or No No management Left Footwear Custom Shoe Slipper Right Footwear Custom Shoe Slipper Pain Scale: 0-10 Numeric Is Patient Pain Free? Yes No WC - Nurse 1 - General Ulcer Measurement Start: 02/16/21 10:18 Freq: Status: Active Protocol: Activity Type Activity Date Activity User E-Sign Co-Sign Detail Recorded Client Recorded Date Recorded By Document 02/16/21 10:18 DL Desktop 02/16/21 10:27 DL Document 03/03/21 10:31 DL [id number] 03/03/21 10:41 DL 02/16/21 03/03/21 10:18 10:31 Wound Center Nurse 1 39 L Med Foot -Current Size (cm) - Length 0.5 -Current Size (cm) - Width 0.9 -Current Size (cm) - Depth 0.2 -Total Square Cm 0.45 -Photo Taken No -Exudate Amt Small -Wound Margin Distinct, Outline Attached -Granulation Amt Medium (34-66%) -Granulation Quality [place] -Necrosis Amt Medium (34-66%) -Necrotic Tissue Type Adherent Slough -Structure Exposed N/A -Texture (Анна-wound Skin Appearance) No Abnormality -Moisture (Анна-wound Skin Appearance) No Abnormality -Color (Анна-wound Skin Appearance) Erythema, Hemosiderin Staining -Temperature (Анна-wound Skin No Abnormality Appearance) (Pt Warm) -Tenderness on Palpation (Анна-wound No Skin Appearance) -Ulcer Cleansing Rinsed/ Irrigated with Saline -Foul Odor after Cleansing Yes, Due to Product Use -Anesthetic Used 5% Lidocaine Gel #8- L LAT FOOT -Combined with other wound No -Current Size (cm) - Length 0.4 0.2 -Current Size (cm) - Width 0.3 0.3 -Current Size (cm) - Depth 0.1 0.1 -Total Square Cm 0.12 0.06 -Date of Last Picture (Recall this 02/16/21 field) -Photo Taken Yes No -Epithelialization None Present -Tunneling No -Undermining/Tunneling No -Circular Undermining No -Exudate Amt None Present Small -Exudate Type Serosanguineous -Wound Margin Distinct, Distinct, Outline Outline Attached Attached -Granulation Amt None Present (0 Small (1-33%) %) -Granulation Quality Pale -Slough/Fibrin Yes -Necrosis Amt Large (67-100%) Small (1-33%) -Necrotic Tissue Type Adherent Slough Adherent Slough -Structure Exposed N/A -Texture (Анна-wound Skin Appearance) Assessed Scarring -Moisture (Анна-wound Skin Appearance) Assessed Dry/Scaly -Color (Анна-wound Skin Appearance) Assessed, Hemosiderin Erythema Staining -Temperature (Анна-wound Skin No Abnormality No Abnormality Appearance) (Pt Warm) (Pt Warm) -Tenderness on Palpation (Анна-wound Yes No Skin Appearance) -Ulcer Cleansing Rinsed/ Wound Cleanser Irrigated with Saline -Foul Odor after Cleansing No No -Anesthetic Used 5% Lidocaine 5% Lidocaine Gel Gel #4 left medial hallux -Combined with other wound No -Current Size (cm) - Length 0.6 0.6 -Current Size (cm) - Width 0.6 0.5 -Current Size (cm) - Depth 0.4 0.3 -Total Square Cm 0.36 0.30 -Photo Taken No No -Epithelialization None Present -Tunneling No -Undermining/Tunneling Yes -Undermining/Tunneling Starts (O'clock 12 ) -Undermining/Tunneling Ends (O'clock) 12 -Maximum Distance (cm) 0.4 -Circular Undermining Yes -Exudate Amt Medium Small -Exudate Type Purulent Yellow/Green -Wound Margin Distinct, Distinct, Outline Outline Attached Attached -Granulation Amt Large (67-100%) Medium (34-66%) -Granulation Quality [place] -Slough/Fibrin Yes -Necrosis Amt Small (1-33%) Medium (34-66%) -Necrotic Tissue Type Adherent Slough Adherent Slough -Structure Exposed Bone N/A -Texture (Анна-wound Skin Appearance) Assessed, Scarring Scarring -Moisture (Анна-wound Skin Appearance) Assessed No Abnormality -Color (Анна-wound Skin Appearance) Assessed Hemosiderin Staining -Temperature (Анна-wound Skin No Abnormality No Abnormality Appearance) (Pt Warm) (Pt Warm) -Tenderness on Palpation (Анна-wound Yes No Skin Appearance) -Ulcer Cleansing Rinsed/ Wound Cleanser Irrigated with Saline -Foul Odor after Cleansing No No -Anesthetic Used 4% Lidocaine 5% Lidocaine Solution Gel WC - Nurse 2 - General Ulcer CM Notes Start: 02/16/21 10:18 Freq: Status: Active Protocol: Activity Type Activity Date Activity User E-Sign Co-Sign Detail Recorded Client Recorded Date Recorded By Document 02/16/21 10:42 JF [id number] 02/16/21 10:48 Document 03/03/21 11:17 JF [id number] 03/03/21 11:22 JF 02/16/21 03/03/21 10:42 11:17 Wound Center Nurse 2 39 L Med Foot -Time 11:18 -Correct Patient Yes -Correct Side, Site, Position Yes -Correct Procedure Yes -Procedure Performed Yes -Type of Procedure Debridement -Clinical Debridement Subcutaneous -Tissue Removed Subcutaneous -Post Debridement (cm) - Length 0.6 -Post Debridement (cm) - Width 0.6 -Post Debridement (cm) - Depth 0.3 -Total Square (Post) (cm) 0.36 -Area of Debridement (cm) - Length 0.6 -Area of Debridement (cm) - Width 0.6 -Total Square (Area) (cm) 0.36 -Tunneling No -Undermining/Tunneling No -Circular Undermining No -Wound/Ulcer Outcome Not Healed -Ulcer Cleansing Rinsed/ Irrigated with Saline -Foul Odor after Cleansing No -Bioengineered Tissue No -Bleeding Controlled with Pressure -Offloading No -Treatment Response Procedure Tolerated Well -Debridement - Subq, 1st 20sq cm Yes #8- L LAT FOOT -Time 10:43 -Correct Patient No -Correct Side, Site, Position No -Correct Procedure No -Procedure Performed No -Post Debridement (cm) - Length 0.1 -Post Debridement (cm) - Width 0.1 -Post Debridement (cm) - Depth 0.1 -Total Square (Post) (cm) 0.01 -Area of Debridement (cm) - Length 0.1 -Area of Debridement (cm) - Width 0.1 -Total Square (Area) (cm) 0.01 -Tunneling No -Undermining/Tunneling No -Circular Undermining No -Wound/Ulcer Outcome Not Healed -Ulcer Cleansing Rinsed/ Irrigated with Saline -Foul Odor after Cleansing No -Bioengineered Tissue No -Bleeding Controlled with Pressure -Offloading No -Treatment Response Procedure Tolerated Well -Debridement - Subq, 1st 20sq cm No #4 left medial hallux -Time 10:44 -Correct Patient Yes -Correct Side, Site, Position Yes -Correct Procedure Yes -Procedure Performed Yes -Type of Procedure Debridement -Clinical Debridement Subcutaneous -Tissue Removed Subcutaneous -Post Debridement (cm) - Length 0.5 -Post Debridement (cm) - Width 0.6 -Post Debridement (cm) - Depth 0.4 -Total Square (Post) (cm) 0.30 -Area of Debridement (cm) - Length 0.5 -Area of Debridement (cm) - Width 0.6 -Total Square (Area) (cm) 0.30 -Tunneling No -Undermining/Tunneling No -Circular Undermining No -Wound/Ulcer Outcome Not Healed -Ulcer Cleansing Rinsed/ Irrigated with Saline -Foul Odor after Cleansing No -Bioengineered Tissue No -Bleeding Controlled with Pressure -Offloading No -Treatment Response Procedure Tolerated Well -Debridement - Subq, 1st 20sq cm Yes Pain Scale: 0-10 Numeric Is Patient Pain Free? Yes Yes - Nurse 3 - General Ulcer D/C NN Start: 02/16/21 10:18 Freq: Status: Active Protocol: Activity Type Activity Date Activity User E-Sign Co-Sign Detail Recorded Client Recorded Date Recorded By Document 02/16/21 11:04 MW Desktop 02/16/21 11:05 MW 02/16/21 11:04 Wound Care Nurse 3 #8- L LAT FOOT -Ulcer Cleansing Rinsed/ Irrigated with Saline -Foul Odor after Cleansing No -Negative Pressure Wound Therapy N/A -Primary Dressing Covered/Secured with Dry Gauze & Roll Gauze, Secured with Tape #4 left medial hallux -Ulcer Cleansing Not Cleansed -Foul Odor after Cleansing No -Negative Pressure Wound Therapy N/A -Primary Dressing Applied Aquacel AG 2x2 -Primary Dressing Covered/Secured with Dry Gauze & Roll Gauze, Secured with Tape -Aquacel AG 2x2 1 Treatment Response Procedure Tolerated Well Pain Scale: 0-10 Numeric Is Patient Pain Free? Yes Teaching: Wound Center Dressing Your Wound -Person Taught Patient,Family -Teaching Method Discussion, Demonstration -Response to teaching Verbalize understanding WC - Visit Discharge Discharge Condition Stable Ambulatory Status Wheelchair Transportation Private Auto Accompanied by Medication Reconcilliation completed & No provided to patient/care provider Clinical Summary of Care Provided Yes Assessment/Plan Assessment/Plan (1) Pressure ulcer of toe of left foot, stage 4: CODE(S): L89.894 - Pressure ulcer of other site, stage 4 (2) Rheumatoid arthritis: CODE(S): M06.9 - Rheumatoid arthritis, unspecified QUALIFIERS: Laterality: bilateral Rheumatoid arthritis location: foot Rheumatoid factor presence: unspecified presence Qualified Code(s): M06.9 - Rheumatoid arthritis, unspecified (3) Fat pad atrophy of foot: CODE(S): L90.9 - Atrophic disorder of skin, unspecified (4) Osteomyelitis, chronic, ankle or foot: CODE(S): M86.679 - Other chronic osteomyelitis, unspecified ankle and foot (5) Left foot pain: CODE(S): M79.672 - Pain in left foot (6) Pain in right foot: CODE(S): M79.671 - Pain in right foot (7) Delayed wound healing: CODE(S): T14.8XXD - Other injury of unspecified body region, subsequent encounter (8) Steroid long-term use: (9) PAD (peripheral artery disease): CODE(S): I73.9 - Peripheral vascular disease, unspecified (10) Pressure ulcer of right foot, stage 4: CODE(S): L89.894 - Pressure ulcer of other site, stage 4 (11) Right foot injury: CODE(S): S99.921A - Unspecified injury of right foot, initial encounter PLAN: Patient seen and examined. Debridement was performed to the left foot as noted in the clinical nursing panel. She is noted to have healed all ulcerations except left sub first metatarsal head / medial forefoot. She continues to use the offloading inserts with significant improvement noted since beginning use. She has significant increase in swelling to dorsal foot with abrasion/ecchymosis from rubbing on shoe. She is noted to start tubigrip at ankle level siting not able to fit it in shoe. Discussed that starting at toe would help with the foot swelling. Discussed the swelling may be cardiac in origin. She continues to follow-up with high school admissions representative as recommended. Patient was started on linezolid and Flagyl per Dr. Clements. Patient cultures from 01/19/2021 demonstrated Staphylococcus epididymis and anaerobic cocci. no local signs of infection noted today. Patient is noted to have gotten an offloading shoe inserts for both her slippers and her tennis shoes. Patient relates that she likes them and that she has had less pain ambulating with these. Discussed that she needs to continue to wear these. Discussed that the improvement noted in her wounds is likely largely contributed by these inserts offloading the areas. She is doing well with this plan so far. Discussed with patient going a more palliative wound care route with her chronic nonhealing ulcerations especially given significant comorbidities and treatment of healing with medications Debridement performed as noted. Verbal consent was obtained and she tolerated this well. LEAS 06/30/20 showed moderate distal small vessel disease bilaterally at the digits. The left foot was noted to have biphasic pulses with CRUZ of 1.27 and TBI of 0.37. The left PT was noncompressible. The right foot PT and DP were noncompressible and TBI of 0.4 with triphasic and biphasic pulses. Patient had procedure with Dr Oseguera 07/21/20. Patient reports that the procedure went well. Dr. Oseguera has no further interventions planned at this time. The etiology of her ulcers appears to be from pressure at sites of metatarsal heads as there is significant fat pad atrophy. Discussed with the patient the importance of proper shoe gear with good padding to supplement lost fat pad. This is most likely due to her rheumatoid arthritis, chronic prednisone treatment may also have a role in the nonhealing of the ulcers. Patient has been using offloaded diabetic shoe inserts that she paid for [id number] and picked up from the office last week. Discussed importance of non-smoking, blood sugar control, weight management, offloading, proper nutrition, and hygiene to optimize healing potential. Discussed that her chronic steroid use for her RA can impact wound healing as well as impact her body's ability to mount an immune response. Discussed the importance of proper nutrition including getting enough protein in her diet to help with healing. Also her vascular disease may also be playing into her poor ability to heal. Bone biopsy 01/05/2021 results of the first metatarsal head on the left foot confirm diagnosis of osteomyelitis infection. Previously obtained MRI also showed osteomyelitis. Patient has undergone multiple rounds of antibiotic treatments per Dr. Clements in infectious disease for this. Surgical treatment options were also discussed with patient but it was decided that it was not worth the risk of potentially creating a larger wound that potentially more bacteria could then get into to infect the wound. Patient is a poor surgical candidate. Updated left foot x-ray ordered. Patient saw Dr. Steinberg for HBO evaluation. This was given prior to patient's recent heart attack and hospital admission. Patient will need to get cardiac clearance prior to being approved for HBO. This was not given at this time. We will potentially reconsider HBO therapy in the future if ever given cardiac clearance. We will hold off on this due to her recent fatigue. Encouraged protein rich diet and protein supplements. Discussed Vick supplementation. Patient is overall frail appearance with muscle atrophy noted. Evaluation for right foot injury was performed today and I recommend a screening x-ray. Order was provided I will call her with the results. All questions answered. She has difficulty getting to clinic due to fatigue. She is stable and will follow up in 2 weeks. Dressings: Continue wound care to foot ulcerations daily. To use Aquacel silver. To moisturize the legs and feet daily. Patient was given Tubigrip's for compression and edema control. To pad and protect abrasion and preulcerative area This note was generated with [employer] dictation software. It may contain incorrect words, spelling, and punctuation that were not noted in checking the note before signing. The medical decision making level is moderate based on data including at least three of the following: review of prior external notes, review of a test, ordering a test, assessment requiring an independent historian. The medical decision making level is moderate. There is noted moderate risk of morbidity after considering this treatment plan and diagnostic data. Considerations were given to prescription management, decisions regarding surgical options, or social determinants of health.
[2021-03-03 11:41] VITALS: BMI 18.6
--- NOTE | 2021-03-03 11:59 | RAD_ITS ---
STUDY: X-RAY - LEFT FOOT CLINICAL: Female, 75 years old. Injury. Pain. TECHNIQUE: 3 view(s) of the foot. COMPARISON: None. FINDINGS: Osteopenia. Mild arthrosis of the tibiotalar and subtalar joints. Small inferior calcaneal spur. Mild arthrosis of the midfoot. Severe arthrosis of the MTP and IP joints with dislocation of the proximal phalanges of all of the toes. Pencil in cup deformities and penciling of multiple bones. Hammertoe deformities. Marked vascular calcification and superficial soft tissue calcification. RAD/Foot min 3 Views IMPRESSION: Osteopenia with findings compatible with an erosive osteoarthropathy. Electronically Signed: Kadeem Calles MD at 13:10 EDT , Service support ,
--- NOTE | 2021-03-03 12:00 | RAD_ITS ---
STUDY: X-RAY - RIGHT FOOT CLINICAL: Female, 75 years old. Injury. Pain. TECHNIQUE: 3 view(s) of the foot. COMPARISON: None. FINDINGS: Diffuse osteopenia. Arthrosis of the tibiotalar joint and the subtalar joint. Mild arthrosis of the midfoot. Moderate to severe arthrosis of the MTP and IP joints with pencil in cup deformities of the MTP joints of the first through fifth digits. Hammertoe deformities. Findings are compatible with an inflammatory arthropathy. Marked vascular and superficial soft tissue calcification. RAD/Foot min 3 Views IMPRESSION: Osteopenia with osteoarthritic changes. Pencil in cup erosive changes of the MTP and IP joints compatible with erosive osteoarthropathy Marked vascular calcification and soft tissue calcification. Electronically Signed: Kadeem Calles MD at 13:08 EDT , Service support ,
== END 2021-03-07 23:59 ==
LOC: WC 10:30
PROVIDERS: PCP Physician Assistant; Visit Provider Podiatrist
DX: E11.51 Type 2 diabetes mellitus with diabetic peripheral angiopathy without gangrene (principal); E11.621 Type 2 diabetes mellitus with foot ulcer; E11.69 Type 2 diabetes mellitus with other specified complication; L89.894 Pressure ulcer of other site, stage 4; M86.679 Other chronic osteomyelitis, unspecified ankle and foot; M06.9 Rheumatoid arthritis, unspecified; M85.80 Other specified disorders of bone density and structure, unspecified site; M19.071 Primary osteoarthritis, right ankle and foot; I25.2 Old myocardial infarction; Z79.01 Long term (current) use of anticoagulants; Z79.52 Long term (current) use of systemic steroids
CPT/HCPCS: 11042; 73630

== ENCOUNTER 2021-03-31 10:00 | Outpatient (RCR) | payer MEDICARE, SELFPAY ==
[2021-03-08 00:20] VITALS: BP 137/95; PULSE 94; RESP 20; TEMP 36.7; BMI 18.6
[2021-03-17 10:38] VITALS: BP 145/55; PULSE 73; RESP 18; TEMP 36.4; BMI 18.6
--- NOTE | 2021-03-17 10:57 | PN.PCM_ITS ---
History of Present Illness Date of Service: 03/17/21 Chief Complaint: Left 1st metatarsal ulceration with chronic refractory os teomyelitis of the left first metatarsal. History of Wound: Kylah is a 75-year-old female who was referred here for treatment bilateral feet ulcerations. Patient is noted to have significant fat pad atrophy likely secondary to her rheumatoid arthritis. Patient is on multiple medications for her rheumatoid arthritis which are impeding her wound healing. Patient is also prone to breakdown given lack of fat pad. Patient noted to have had MRIs which showed osteomyelitis and has been treated by Dr. Clements with antibiotic treatments. Patient is a poor surgical candidate given her poor healing status and multiple comorbidities. The patient has had vascular studies on 06/30/20 showed moderate distal small vessel disease bilaterally at the digits with some non compressible vessels. Patient saw her vascular surgeon, Dr Oseguera, who did intervention on the patient on 07/21/20. Dr. Oseguera has no further interventions planned at this time. She had MRI on 06/25/20 which showed osteomyelitis to left 1st metatarsal. The patient is noted to be on prednisone and methotrexate for her rheumatoid arthritis. These are acknowledged to be possible inhibitors to wound healing. Patient noted to have painful feet due to her rheumatoid arthritis. Patient is also noted to have had recent heart attack and has been started on blood thinners for this. More recently, 01/19/21 cultures show anaerobic cocci and staph epi. Patient has followed up with Dr Clements with infectious disease over infection. She offloads with Plastizote accommodative inserts in her house slippers. She is a fall risk and has difficulty walking and other offloading devices. She has tried other devices. She is getting her energy back and reports reduced fatigue. She is no longer taking antibiotics. She denies new injuries. Progress of Wound: Stable Objective Data Objective Data Vital Signs: Vital Signs Temp Pulse Resp BP 97.5 F L 73 18 145/55 H 03/17/21 10:38 03/17/21 10:38 03/17/21 10:38 03/17/21 10:38 Weight: 46.266 kg Body Mass Index (BMI) 18.6 Physical Exam Narrative Const alert and no apparent distress General Appearance: cooperative and comfortable Patient has overall frail appearance Extremity no calf tenderness, negative yasmine and baker sign No lower extremity edema General Extremity: tenderness to palpation palpable metatarsal heads. There is Significant fat pad atrophy noted with easily palpable metatarsal heads 1 through 5 bilaterally. Negative for clubbing or cyanosis or ecchymosis or erythema Vasc Peripheral Pulses: posterior tibial pulses absent and dorsalis pedis pulses present but diminished, normal capillary refill, no acute ischemic skin changes noted, cool temperature Skin General Skin Exam: dry flaky atrophic skin to entire bilateral lower extremities, absent hair growth noted; Negative for ecchymosis, eschar, pallor, rashes. Patient skin in general is in very poor condition especially since starting blood thinners. Her arms are noted to be extremely dark and discolored to her entire forearms. Wound Narrative: ulcers noted to plantar first metatarsal head left and medial forefoot left. left subfirst metatarsal head ulceration. Bone continues to be exposed. Less serous drainage noted. No surrounding erythema or edema. No malodor, streaking, fluctuation, crepitus. Skin is atrophic and hairless. There is significant amount of fat pad atrophy noted to bilateral feet secondary to patient's rheumatoid arthritis. There is noted minimal callus at previous u lceration sites. Pain to palpation of plantar forefoot bilaterally resolved Right forefoot ecchymosis to all digits and forefoot with adjacent edema Neuro Gait (Neuro): heel to toe. Guarded, slow, and unsteady Sensory Exam: extremities light-touch: Intact Debridement Note Debridement Note Wound debrided: left sub 1st metatarsal head Type of Debridement: Selective debridement Anesthesia Used: 4% Lidocaine Solution Depth: in the subcutaneous layer Percentage of wound debrided: 100 Instrument Used: #15 blade Tissue Removed: fibrous, devitalized subcutaneous, biofilm, slough Severity: Fat Layer Exposed Amount of bleeding with debridement: Mild Bleeding Controlled with: Pressure Patient tolerated procedure: Patient tolerated procedure well Post-Debridement Measurements and Additional Note: Post-Debridement Measurements/Treatment - Nurse 1 - General Ulcer Assessment Start: 03/17/21 10:32 Freq: Status: Active Protocol: GEORGE Activity Type Activity Date Activity User E-Sign Co-Sign Detail Recorded Client Recorded Date Recorded By Document 03/17/21 10:38 DL Desktop 03/17/21 10:43 DL 03/17/21 10:38 - Today's Visit Information Type of service Follow-up Visit (Physician/DIRECTOR INDUSTRIAL NURSING ) Arrival Mode Ambulatory Transfer Assistance None Patient Identification Verified (Name & Yes ) Patient Requires Transmission-Based No Precautions Height and Weight Body Mass Index (BMI) 18.6 BMI Classification Normal Vital Signs Temperature (97.8 F-99.1 F) 97.5 F L Temperature Source Temporal Pulse Rate (60-100) 73 Pulse Location Monitor Respiratory Rate (12-18) 18 Respiratory rate source Observation Blood Pressure (90/60-120/80) 145/55 H Blood Pressure Mean (mm Hg) 85 Source Monitor History Since Last Visit- (Skip if this is Patient's initial visit) Have you changed medications since your No last visit? Any new allergies or adverse reactions No Had a fall/change in ADL's that may No increase risk of falls Signs or symptoms of abuse and/or No neglect since last visit Have you been in the hospital since your No last visit? Has dressing in place as prescribed Yes Has compression in place as prescribed Yes Has offloadiing in place as prescribed Yes Experienced any changes in pain level or No management Left Footwear Custom Shoe Right Footwear Custom Shoe Pain Scale: 0-10 Numeric Is Patient Pain Free? Yes WC - Nurse 1 - General Ulcer Measurement Start: 03/17/21 10:32 Freq: Status: Active Protocol: Activity Type Activity Date Activity User E-Sign Co-Sign Detail Recorded Client Recorded Date Recorded By Document 03/17/21 10:38 DL Desktop 03/17/21 10:43 DL 03/17/21 10:38 Wound Center Nurse 1 39 L Med Foot -Current Size (cm) - Length 0.4 -Current Size (cm) - Width 0.3 -Current Size (cm) - Depth 0.3 -Total Square Cm 0.12 -Photo Taken No -Maximum Distance #2 (cm) 0.2 -Circular Undermining Yes -Exudate Amt Small -Exudate Type Yellow/Green -Wound Margin Distinct, Outline Attached -Granulation Amt None Present (0 %) -Necrosis Amt Small (1-33%) -Necrotic Tissue Type Adherent Slough -Structure Exposed Bone -Texture (Анна-wound Skin Appearance) Scarring -Moisture (Нана-wound Skin Appearance) Dry/Scaly -Color (Анна-wound Skin Appearance) No Abnormality -Temperature (Анна-wound Skin No Abnormality Appearance) (Pt Warm) -Tenderness on Palpation (Анна-wound No Skin Appearance) -Ulcer Cleansing Rinsed/ Irrigated with Saline -Foul Odor after Cleansing No -Anesthetic Used 5% Lidocaine Gel Left Calf (cm) 27.5 Left Ankle (cm) 16.2 WC - Nurse 2 - General Ulcer CM Notes Start: 03/17/21 10:32 Freq: Status: Active Protocol: Activity Type Activity Date Activity User E-Sign Co-Sign Detail Recorded Client Recorded Date Recorded By Document 03/17/21 10:49 REJI [id number] 03/17/21 10:51 REJI 03/17/21 10:49 Wound Center Nurse 2 39 L Med Foot -Time 10:50 -Correct Patient Yes -Correct Side, Site, Position Yes -Correct Procedure Yes -Procedure Performed Yes -Type of Procedure Debridement -Clinical Debridement Epidermis / Dermis -Tissue Removed Epidermis, Dermis -Post Debridement (cm) - Length 0.4 -Post Debridement (cm) - Width 0.4 -Post Debridement (cm) - Depth 0.3 -Total Square (Post) (cm) 0.16 -Area of Debridement (cm) - Length 0.4 -Area of Debridement (cm) - Width 0.4 -Total Square (Area) (cm) 0.16 -Tunneling No -Undermining/Tunneling No -Circular Undermining No -Wound/Ulcer Outcome Not Healed -Ulcer Cleansing Rinsed/ Irrigated with Saline -Foul Odor after Cleansing No -Bioengineered Tissue No -Bleeding Controlled with Pressure -Offloading No -Treatment Response Procedure Tolerated Well -Debridement - Open, 1st 20sq cm Yes Pain Scale: 0-10 Numeric Is Patient Pain Free? Yes Assessment/Plan Assessment/Plan (1) Rheumatoid arthritis: CODE(S): M06.9 - Rheumatoid arthritis, unspecified QUALIFIERS: Rheumatoid arthritis location: foot Rheumatoid factor presence: unspecified presence Laterality: bilateral Qualified Code(s): M06.9 - Rheumatoid arthritis, unspecified (2) Fat pad atrophy of foot: CODE(S): L90.9 - Atrophic disorder of skin, unspecified (3) Osteomyelitis, chronic, ankle or foot: CODE(S): M86.679 - Other chronic osteomyelitis, unspecified ankle and foot (4) Delayed wound healing: CODE(S): T14.8XXD - Other injury of unspecified body region, subsequent encounter (5) Steroid long-term use: (6) PAD (peripheral artery disease): CODE(S): I73.9 - Peripheral vascular disease, unspecified (7) Right foot injury: CODE(S): S99.921A - Unspecified injury of right foot, initial encounter (8) Chronic ulcer of left foot with necrosis of bone: CODE(S): L97.524 - Non-pressure chronic ulcer of other part of left foot with necrosis of bone PLAN: Patient seen and examined. Debridement was performed to the left foot as noted in the clinical nursing panel. She is noted to have healed all ulcerations except left sub first metatarsal head. She continues to use the offloading inserts with significant improvement noted since beginning use. She has significant increase in swelling to dorsal foot with abrasion/ecchymosis from rubbing on shoe. She is noted to use tubigrip Discussed the swelling may be cardiac in origin. She continues to follow-up with purchasing director as recommended previously. Patient was started on linezolid and Flagyl per Dr. Clements. Patient cultures from 01/19/2021 demonstrated Staphylococcus epididymis and anaerobic cocci. no local signs of infection noted today. This has been completed. Patient is noted to have gotten an offloading shoe inserts for both her slippers and her tennis shoes. Patient relates that she likes them and that she has had less pain ambulating with these. Discussed that she needs to continue to wear these. Discussed that the improvement noted in her wounds is likely largely contributed by these inserts offloading the areas. She is doing well with this plan so far. Discussed with patient going a more palliative wound care route with her chronic nonhealing ulcerations especially given significant comorbidities and treatment of healing with medications Debridement performed as noted. Verbal consent was obtained and she tolerated this well. LEAS 06/30/20 showed moderate distal small vessel disease bilaterally at the digits. The left foot was noted to have biphasic pulses with CRUZ of 1.27 and TBI of 0.37. The left PT was noncompressible. The right foot PT and DP were noncompressible and TBI of 0.4 with triphasic and biphasic pulses. Patient had procedure with Dr Oseguera 07/21/20. Patient reports that the procedure went well. Dr. Oseguera has no further interventions planned at this time. The etiology of her ulcers appears to be from pressure at sites of metatarsal heads as there is significant fat pad atrophy. Discussed with the patient the importance of proper shoe gear with good padding to supplement lost fat pad. This is most likely due to her rheumatoid arthritis, chronic prednisone treatment may also have a role in the nonhealing of the ulcers. Patient has been using offloaded diabetic shoe inserts that she paid for [id number] and picked up from the office last week. Discussed importance of non-smoking, blood sugar control, weight management, offloading, proper nutrition, and hygiene to optimize healing potential. Discussed that her chronic steroid use for her RA can impact wound healing as well as impact her body's ability to mount an immune response. Discussed the importance of proper nutrition including getting enough protein in her diet to help with healing. Also her vascular disease may also be playing into her poor ability to heal. Bone biopsy 01/05/2021 results of the first metatarsal head on the left foot confirm diagnosis of osteomyelitis infection. Previously obtained MRI also showed osteomyelitis. Patient has undergone multiple rounds of antibiotic treatments per Dr. Clements in infectious disease for this. Surgical treatment options were also discussed with patient but it was decided that it was not worth the risk of potentially creating a larger wound that potentially more bacteria could then get into to infect the wound. Patient is a poor surgical candidate. Updated left foot x-ray ordered. Updated left foot x-ray did not demonstrate any progressive osseous destruction soft tissue emphysema or foreign body. She also has decreased bone density noted on this foot. Patient saw Dr. Steinberg for HBO evaluation. This was given prior to patient's recent heart attack and hospital admission. Patient will need to get cardiac clearance prior to being approved for HBO. This was not given at this time. We will potentially reconsider HBO therapy in the future if ever given cardiac clearance. We will hold off on this due to her recent fatigue. Encouraged protein rich diet and protein supplements. Discussed Vick supplementation. Patient is overall frail appearance with muscle atrophy noted. Evaluation for right foot injury was performed today and I recommend a screening x-ray. Her right foot x-rays do not demonstrate any fracture or dislocation. Her forefoot deformities are noted. She has decreased bone density.. To proceed with weightbearing as tolerated in a supportive shoe is she has been doing this. All questions answered. She has difficulty getting to clinic due to fatigue. She is stable and will follow up in 2 weeks. Dressings: Continue wound care to foot ulcerations daily. To use Aquacel silver. To moisturize the legs and feet daily. Patient was given Tubigrip's for compression and edema control. To pad and protect abrasion and preu lcerative area This note was generated with tibdit dictation software. It may contain incorrect words, spelling, and punctuation that were not noted in checking the note before signing. The medical decision making level is limited based on data including the review of prior external notes, review of a prior test, or ordering a test. The medical decision making level is low. There is noted risk of morbidity after considering this treatment plan and diagnostic data.
[2021-03-31 11:03] VITALS: BP 126/63; PULSE 72; TEMP 36.1; BMI 18.6
--- NOTE | 2021-03-31 11:06 | PN.PCM_ITS ---
History of Present Illness Date of Service: 03/31/21 Chief Complaint: Left 1st metatarsal ulceration with chronic refractory os teomyelitis of the left first metatarsal. History of Wound: Kylah is a 75-year-old female who was referred here for treatment bilateral feet ulcerations. Patient is noted to have significant fat pad atrophy likely secondary to her rheumatoid arthritis. Patient is on multiple medications for her rheumatoid arthritis which are impeding her wound healing. Patient is also prone to breakdown given lack of fat pad. Patient noted to have had MRIs which showed osteomyelitis and has been treated by Dr. Clements with antibiotic treatments. Patient is a poor surgical candidate given her poor healing status and multiple comorbidities. The patient has had vascular studies on 06/30/20 showed moderate distal small vessel disease bilaterally at the digits with some non compressible vessels. Patient saw her vascular surgeon, Dr Oseguera, who did intervention on the patient on 07/21/20. Dr. Oseguera has no further interventions planned at this time. She had MRI on 06/25/20 which showed osteomyelitis to left 1st metatarsal. 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 These are acknowledged to be possible inhibitors to wound healing. Patient noted to have painful feet due to her rheumatoid arthritis. Patient is also noted to have had recent heart attack and has been started on blood thinners for this. More recently, 01/19/21 cultures show anaerobic cocci and staph epi. Patient has followed up with Dr Clemetns with infectious disease over infection. She offloads with Plastizote accommodative inserts in her house slippers. She is a fall risk and has difficulty walking and other offloading devices. She has tried other devices. She denies new injuries.She denies fever, chills, nausea, vomiting. Progress of Wound: Stable Objective Data Objective Data Vital Signs: Vital Signs Temp Pulse Resp BP 96.9 F L 72 18 126/63 H 03/31/21 11:03 03/31/21 11:03 03/17/21 10:38 03/31/21 11:03 Weight: 46.266 kg Body Mass Index (BMI) 18.6 Physical Exam Narrative Const alert and no apparent distress General Appearance: cooperative and comfortable Patient has overall frail appearance Extremity no calf tenderness, negative yasmine and baker sign No lower extremity edema General Extremity: tenderness to palpation palpable metatarsal heads. There is Significant fat pad atrophy noted with easily palpable metatarsal heads 1 through 5 bilaterally. Negative for clubbing or cyanosis or ecchymosis or erythema Vasc Peripheral Pulses: posterior tibial pulses absent and dorsalis pedis pulses present but diminished, normal capillary refill, no acute ischemic skin changes noted, cool temperature Skin General Skin Exam: dry flaky atrophic skin to entire bilateral lower extremities, absent hair growth noted; Negative for ecchymosis, eschar, pallor, rashes. Patient skin in general is in very poor condition especially since starting blood thinners. Her arms are noted to be extremely dark and discolored to her entire forearms. Wound Narrative: ulcers noted to plantar first metatarsal head left and medial forefoot left. left subfirst metatarsal head ulceration. Bone continues to be exposed. Less serous drainage noted. No surrounding erythema or edema. No malodor, streaking, fluctuation, crepitus. Skin is atrophic and hairless. There is significant amount of fat pad atrophy noted to bilateral feet secondary to patient's rheumatoid arthritis. There is noted minimal callus at previous ulceration sites. Pain to palpation of plantar forefoot bilaterally resolved Right forefoot ecchymosis to all digits and forefoot with adjacent edema Neuro Gait (Neuro): heel to toe. Guarded, slow, and unsteady Sensory Exam: extremities light-touch: Intact Debridement Note Debridement Note Post-Debridement Measurements and Additional Note: Post-Debridement Measurements/Treatment WC - Nurse 1 - General Ulcer Assessment Start: 03/17/21 10:32 Freq: Status: Active Protocol: SHAHANA.LOWEXT Activity Type Activity Date Activity User E-Sign Co-Sign Detail Recorded Client Recorded Date Recorded By Document 03/17/21 10:38 DL Desktop 03/17/21 10:43 DL Document 03/31/21 11:03 AK [id number] 03/31/21 11:05 AK 03/17/21 03/31/21 10:38 11:03 - Today's Visit Information Type of service Follow-up Visit Follow-up Visit (Physician/WEIGHTS AND MEASURES INSPECTOR (Physician/WEIGHTS AND MEASURES INSPECTOR ) ) Arrival Mode Ambulatory Ambulatory Transfer Assistance None Patient Identification Verified (Name & Yes Yes ) Patient Requires Transmission-Based No No Precautions Safety Precautions NA Height and Weight Body Mass Index (BMI) 18.6 18.6 BMI Classification Normal Normal Vital Signs Temperature (97.8 F-99.1 F) 97.5 F L 96.9 F L Temperature Source Temporal Temporal Pulse Rate (60-100) 73 72 Pulse Location Monitor Monitor Respiratory Rate (12-18) 18 Respiratory rate source Observation Blood Pressure (90/60-120/80) 145/55 H 126/63 H Blood Pressure Mean (mm Hg) 85 84 Source Monitor Monitor History Since Last Visit- (Skip if this is Patient's initial visit) Have you changed medications since your No No last visit? Any new allergies or adverse reactions No No Had a fall/change in ADL's that may No No increase risk of falls Signs or symptoms of abuse and/or No No neglect since last visit Have you been in the hospital since your No No last visit? Has dressing in place as prescribed Yes Yes Has compression in place as prescribed Yes Yes Has offloadiing in place as prescribed Yes N/A Experienced any changes in pain level or No No management Left Footwear Custom Shoe Regular Shoe Right Footwear Custom Shoe Regular Shoe Pain Scale: 0-10 Numeric Is Patient Pain Free? Yes WC - Nurse 1 - General Ulcer Measurement Start: 03/17/21 10:32 Freq: Status: Active Protocol: Activity Type Activity Date Activity User E-Sign Co-Sign Detail Recorded Client Recorded Date Recorded By Document 03/17/21 10:38 DL Desktop 03/17/21 10:43 DL Document 03/31/21 11:03 AK [id number] 03/31/21 11:05 AK 03/17/21 03/31/21 10:38 11:03 Wound Center Nurse 1 #9 LEFT MEDIAL FOOT -Combined with other wound No -Current Size (cm) - Length 0.4 0.5 -Current Size (cm) - Width 0.3 0.5 -Current Size (cm) - Depth 0.3 0.1 -Total Square Cm 0.12 0.25 -Photo Taken No No -Epithelialization None Present -Tunneling No -Undermining/Tunneling No -Maximum Distance #2 (cm) 0.2 -Circular Undermining Yes No -Exudate Amt Small Medium -Exudate Type Yellow/Green Serosanguineous -Wound Margin Distinct, Distinct, Outline Outline Attached Attached -Granulation Amt None Present (0 None Present (0 %) %) -Granulation Quality N/A -Slough/Fibrin Yes -Necrosis Amt Small (1-33%) Medium (34-66%) -Necrotic Tissue Type Adherent Slough Adherent Slough -Structure Exposed Bone N/A -Texture (Анна-wound Skin Appearance) Scarring No Abnormality, Assessed -Moisture (Анна-wound Skin Appearance) Dry/Scaly No Abnormality, Assessed -Color (Анна-wound Skin Appearance) No Abnormality No Abnormality, Assessed -Temperature (Анна-wound Skin No Abnormality No Abnormality Appearance) (Pt Warm) (Pt Warm) -Tenderness on Palpation (Анна-wound No No Skin Appearance) -Ulcer Cleansing Rinsed/ Rinsed/ Irrigated with Irrigated with Saline Saline -Foul Odor after Cleansing No No -Anesthetic Used 5% Lidocaine 4% Lidocaine Gel Solution Left Calf (cm) 27.5 Left Ankle (cm) 16.2 WC - Nurse 2 - General Ulcer CM Notes Start: 03/17/21 10:32 Freq: Status: Active Protocol: Activity Type Activity Date Activity User E-Sign Co-Sign Detail Recorded Client Recorded Date Recorded By Document 03/17/21 10:49 [id number] 03/17/21 10:51 Document 03/31/21 10:23 [id number] 03/31/21 10:26 Edit Result 03/31/21 10:23 (1) [id number] 03/31/21 10:26 (1) #9 LEFT MEDIAL FOOT - Post Debridement (cm) - Length 0.4 => 0.6 - Post Debridement (cm) - Width 0.4 => 0.5 - Total Square (Post) (cm) 0.16 => 0.30 - Area of Debridement (cm) - Length 0.4 => 0.6 - Area of Debridement (cm) - Width 0.4 => 0.5 - Total Square (Area) (cm) 0.16 => 0.30 03/17/21 03/31/21 10:49 10:23 Wound Center Nurse 2 #9 LEFT MEDIAL FOOT -Time 10:50 10:24 -Correct Patient Yes Yes -Correct Side, Site, Position Yes Yes -Correct Procedure Yes Yes -Procedure Performed Yes Yes -Type of Procedure Debridement Debridement -Clinical Debridement Epidermis / Subcutaneous Dermis -Tissue Removed Epidermis, Subcutaneous Dermis -Post Debridement (cm) - Length 0.4 0.6 -Post Debridement (cm) - Width 0.4 0.5 -Post Debridement (cm) - Depth 0.3 0.3 -Total Square (Post) (cm) 0.16 0.30 -Area of Debridement (cm) - Length 0.4 0.6 -Area of Debridement (cm) - Width 0.4 0.5 -Total Square (Area) (cm) 0.16 0.30 -Tunneling No No -Undermining/Tunneling No No -Circular Undermining No No -Wound/Ulcer Outcome Not Healed Not Healed -Ulcer Cleansing Rinsed/ Rinsed/ Irrigated with Irrigated with Saline Saline -Foul Odor after Cleansing No No -Bioengineered Tissue No No -Bleeding Controlled with Pressure Pressure -Offloading No No -Treatment Response Procedure Procedure Tolerated Well Tolerated Well -Debridement - Open, 1st 20sq cm Yes -Debridement - Subq, 1st 20sq cm Yes Pain Scale: 0-10 Numeric Is Patient Pain Free? Yes Yes - Nurse 3 - General Ulcer D/C NN Start: 03/17/21 10:32 Freq: Status: Active Protocol: Activity Type Activity Date Activity User E-Sign Co-Sign Detail Recorded Client Recorded Date Recorded By Document 03/17/21 11:05 Desktop 03/17/21 11:06 03/17/21 11:05 Wound Care Nurse 3 #9 LEFT MEDIAL FOOT -Ulcer Cleansing Rinsed/ Irrigated with Saline -Primary Dressing Applied Aquacel AG 4x4 -Primary Dressing Covered/Secured with Dry Gauze,Dry Gauze & Roll Gauze,Secured with Tape -Aquacel AG 4x4 1 Right -Other single layer tubigrip Left -Other single layer tubigrip Treatment Response Procedure Tolerated Well Pain Scale: 0-10 Numeric Is Patient Pain Free? Yes - Visit Discharge Discharge Condition Stable Ambulatory Status Ambulatory Transportation Private Auto Medication Reconcilliation completed & No provided to patient/care provider Clinical Summary of Care Provided Yes Assessment/Plan Assessment/Plan (1) Rheumatoid arthritis: CODE(S): M06.9 - Rheumatoid arthritis, unspecified QUALIFIERS: Laterality: bilateral Rheumatoid arthritis location: foot Rheumatoid factor presence: unspecified presence Qualified Code(s): M06.9 - Rheumatoid arthritis, unspecified (2) Fat pad atrophy of foot: CODE(S): L90.9 - Atrophic disorder of skin, unspecified (3) Osteomyelitis, chronic, ankle or foot: CODE(S): M86.679 - Other chronic osteomyelitis, unspecified ankle and foot (4) Delayed wound healing: CODE(S): T14.8XXD - Other injury of unspecified body region, subsequent encounter (5) Steroid long-term use: (6) PAD (peripheral artery disease): CODE(S): I73.9 - Peripheral vascular disease, unspecified (7) Chronic ulcer of left foot with necrosis of bone: CODE(S): L97.524 - Non-pressure chronic ulcer of other part of left foot with necrosis of bone PLAN: Patient seen and examined. Debridement was performed to the left foot as noted in the clinical nursing panel. She is noted to have healed all ulcerations except left sub first metatarsal head. She continues to use the offloading inserts with significant improvement noted since beginning use. She has significant increase in swelling to dorsal foot with abrasion/ecchymosis from rubbing on shoe. She is noted to use tubigrip Discussed the swelling may be cardiac in origin. She continues to follow-up with foam fabricator as recommended previously. Patient was started on linezolid and Flagyl per Dr. Clements. Patient cultures from 01/19/2021 demonstrated Staphylococcus epididymis and anaerobic cocci. no local signs of infection noted today. This has been completed. Patient is noted to have gotten an offloading shoe inserts for both her slippers and her tennis shoes. Patient relates that she likes them and that she has had less pain ambulating with these. Discussed that she needs to continue to wear these. Discussed that the improvement noted in her wounds is likely largely contributed by these inserts offloading the areas. She is doing well with this plan so far. Discussed with patient going a more palliative wound care route with her chronic nonhealing ulcerations especially given significant comorbidities and treatment of healing with medications Debridement performed as noted. Verbal consent was obtained and she tolerated this well. LEAS 06/30/20 showed moderate distal small vessel disease bilaterally at the digits. The left foot was noted to have biphasic pulses with CRUZ of 1.27 and TBI of 0.37. The left PT was noncompressible. The right foot PT and DP were noncompressible and TBI of 0.4 with triphasic and biphasic pulses. Patient had procedure with Dr Oseguera 07/21/20. Patient reports that the procedure went well. Dr. Oseguera has no further interventions planned at this time. The etiology of her ulcers appears to be from pressure at sites of metatarsal heads as there is significant fat pad atrophy. Discussed with the patient the importance of proper shoe gear with good padding to supplement lost fat pad. This is most likely due to her rheumatoid arthritis, chronic prednisone treatment may also have a role in the nonhealing of the ulcers. Patient has been using offloaded diabetic shoe inserts that she paid for [id number] and picked up from the office last week. Discussed importance of non-smoking, blood sugar control, weight management, offloading, proper nutrition, and hygiene to optimize healing potential. Discussed that her chronic steroid use for her RA can impact wound healing as well as impact her body's ability to mount an immune response. We discussed the option of transitioning her back to her medications under the management of her databases computer consultant. I do not think this would benefit her wound healing progression however she understands if she is having flareups and needs to return to the medication that is okay to proceed forward with more of a palliative type wound care plan. Her note will be faxed to [facility] rheumatology. Discussed the importance of proper nutrition including getting enough protein in her diet to help with healing. Bone biopsy 01/05/2021 results of the first metatarsal head on the left foot confirm diagnosis of osteomyelitis infection. Previously obtained MRI also showed osteomyelitis. Patient has undergone multiple rounds of antibiotic treatments per Dr. Clements in infectious disease for this. Surgical treatment options were also discussed with patient but it was decided that it was not worth the risk of potentially creating a larger wound that potentially more bacteria could then get into to infect the wound. Patient is a poor surgical candidate. Updated left foot x-ray ordered. Updated left foot x-ray did not demonstrate any progressive osseous destruction soft tissue emphysema or foreign body. She also has decreased bone density noted on this foot. Patient saw Dr. Steinberg for HBO evaluation. This was given prior to patient's recent heart attack and hospital admission. Patient will need to get cardiac clearance prior to being approved for HBO. This was not given at this time. We will potentially reconsider HBO therapy in the future if ever given cardiac clearance. We will hold off on this due to her recent fatigue. Encouraged protein rich diet and protein supplements. Discussed Vick supplementation. Patient is overall frail appearance with muscle atrophy noted. All questions answered. She is stable and will follow up in 2 weeks. Dressings: Continue wound care to foot ulcerations daily. To use Aquacel silver. To moisturize the legs and feet daily. Patient was given Tubigrip's for compression and edema control. To pad and protect abrasion and preulcerative area This note was generated with [employer] dictation software. It may contain incorrect words, spelling, and punctuation that were not noted in checking the note before signing. 20 minutes was spent on this encounter. This included face to face and non face to face care including preparing for the visit, reviewing the history, performing the exam, counseling and providing education to the patient, family, or caregiver, ordering medications/test/ procedures if indicated as documented, communicating with other healthcare providers, documenting information in the medical record, interpreting / sharing this information when indicated as documented, and care coordination.
== END 2021-04-06 23:59 ==
LOC: WC 10:00
PROVIDERS: PCP Physician Assistant; Visit Provider Podiatrist
DX: E11.621 Type 2 diabetes mellitus with foot ulcer (principal); L97.524 Non-pressure chronic ulcer of other part of left foot with necrosis of bone; M86.679 Other chronic osteomyelitis, unspecified ankle and foot; M06.9 Rheumatoid arthritis, unspecified; L90.9 Atrophic disorder of skin, unspecified; I73.9 Peripheral vascular disease, unspecified; T14.8XXD Other injury of unspecified body region, subsequent encounter; I25.2 Old myocardial infarction; E11.51 Type 2 diabetes mellitus with diabetic peripheral angiopathy without gangrene; Z79.01 Long term (current) use of anticoagulants; Z79.52 Long term (current) use of systemic steroids; M62.50 Muscle wasting and atrophy, not elsewhere classified, unspecified site
CPT/HCPCS: 11042; 97597

== ENCOUNTER 2021-04-21 10:00 | Outpatient (RCR) | payer MEDICARE, SELFPAY ==
[2021-04-07 00:25] VITALS: BP 126/63; PULSE 72; RESP 18; TEMP 36.1; BMI 18.6
[2021-04-14 09:48] VITALS: BP 161/73; PULSE 76; RESP 16; TEMP 36.1; BMI 18.6
--- NOTE | 2021-04-14 10:14 | PN.PCM_ITS ---
History of Present Illness Date of Service: 04/14/21 Chief Complaint: Left 1st metatarsal ulceration with chronic refractory os teomyelitis of the left first metatarsal. History of Wound: Kylah is a 75-year-old female who was referred here for treatment bilateral feet ulcerations. Patient is noted to have significant fat pad atrophy likely secondary to her rheumatoid arthritis. Patient is on multiple medications for her rheumatoid arthritis which are impeding her wound healing. Patient is also prone to breakdown given lack of fat pad. Patient noted to have had MRIs which showed osteomyelitis and has been treated by Dr. Clements with antibiotic treatments. Patient is a poor surgical candidate given her poor healing status and multiple comorbidities. The patient has had vascular studies on 06/30/20 showed moderate distal small vessel disease bilaterally at the digits with some non compressible vessels. Patient saw her vascular surgeon, Dr Oseguera, who did intervention on the patient on 07/21/20. Dr. Oseguera has no further interventions planned at this time. She had MRI on 06/25/20 which showed osteomyelitis to left 1st metatarsal. 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 These are acknowledged to be possible inhibitors to wound healing. Patient noted to have painful feet due to her rheumatoid arthritis. Patient is also noted to have had recent heart attack and has been started on blood thinners for this. More recently, 01/19/21 cultures show anaerobic cocci and staph epi. Patient has followed up with Dr Clements with infectious disease over infection. She offloads with Plastizote accommodative inserts in her house slippers. She is a fall risk and has difficulty walking and other offloading devices. She has tried other devices. She denies new injuries.She denies fever, chills, nausea, vomiting. She applied a significant amount of tape directly on her skin and now has a skin tear. Progress of Wound: Stable New skin tear Objective Data Objective Data Vital Signs: Vital Signs Temp Pulse Resp BP 97 F L 76 16 161/73 H 04/14/21 09:48 04/14/21 09:48 04/14/21 09:48 04/14/21 09:48 Oxygen Delivery Method Room Air Weight: 46.266 kg Body Mass Index (BMI) 18.6 Physical Exam Narrative Const alert and no apparent distress General Appearance: cooperative and comfortable Patient has overall frail appearance Extremity no calf tenderness, negative yasmine and baker sign No lower extremity edema General Extremity: tenderness to palpation palpable metatarsal heads. There is Significant fat pad atrophy noted with easily palpable metatarsal heads 1 through 5 bilaterally. Negative for clubbing or cyanosis or ecchymosis or erythema Vasc Peripheral Pulses: posterior tibial pulses absent and dorsalis pedis pulses present but diminished, normal capillary refill, no acute ischemic skin changes noted, cool temperature Skin General Skin Exam: dry flaky atrophic skin to entire bilateral lower extremities, absent hair growth noted; Negative for ecchymosis, eschar, pallor, rashes. Patient skin in general is in very poor condition especially since starting blood thinners. Her arms are noted to be extremely dark and discolored to her entire forearms. Wound Narrative: ulcers noted to plantar first metatarsal head left and medial forefoot left. left subfirst metatarsal head ulceration. Bone continues to be exposed and is fish discolored-stable. Less serous drainage noted. No surrounding erythema or edema. No malodor, streaking, fluctuation, crepitus. Skin is atrophic and hairless. Dorsal lateral left foot with skin tear and hematogenous drainage no infection likely from tape application There is significant amount of fat pad atrophy noted to bilateral feet secondary to patient's rheumatoid arthritis. There is noted minimal callus at previous ulceration sites. Pain to palpation of plantar forefoot bilaterally resolved Right forefoot ecchymosis to all digits and forefoot with adjacent edema Neuro Gait (Neuro): heel to toe. Guarded, slow, and unsteady Sensory Exam: extremities light-touch: Intact Debridement Note Debridement Note Wound debrided: Subfirst metatarsal head left Wound Grade/Stage: Type of Debridement: Excisional debridement Anesthesia Used: 4% Lidocaine Solution Depth: in the subcutaneous layer and to bone Percentage of wound debrided: 100 Instrument Used: #15 blade and - (Bone nipper) Tissue Removed: fibrous, devitalized subcutaneous, biofilm, slough Severity: Fat Layer Exposed Amount of bleeding with debridement: Mild Bleeding Controlled with: Pressure Patient tolerated procedure: Patient tolerated procedure well Post-Debridement Measurements and Additional Note: Post-Debridement Measurements/Treatment SHAHANA - Nurse 1 - General Ulcer Assessment Start: 04/14/21 09:48 Freq: Status: Active Protocol: NORAEXT Activity Type Activity Date Activity User E-Sign Co-Sign Detail Recorded Client Recorded Date Recorded By Document 04/14/21 09:48 [facility] [id number] 04/14/21 09:54 [facility] 04/14/21 09:48 - Today's Visit Information Type of service Follow-up Visit (Physician/OWNER MANAGER ) Arrival Mode Ambulatory Transfer Assistance None Patient Identification Verified (Name & Yes ) Patient Requires Transmission-Based No Precautions Height and Weight Body Mass Index (BMI) 18.6 BMI Classification Normal Vital Signs Temperature (97.8 F-99.1 F) 97 F L Temperature Source Temporal Pulse Rate (60-100) 76 Pulse Location Monitor Respiratory Rate (12-18) 16 Respiratory rate source Observation Oxygen Delivery Method Room Air Blood Pressure (90/60-120/80) 161/73 H Blood Pressure Mean (mm Hg) 102 Source Monitor Position Sitting Blood Pressure Location Left Arm History Since Last Visit- (Skip if this is Patient's initial visit) Have you changed medications since your No last visit? Any new allergies or adverse reactions No Had a fall/change in ADL's that may No increase risk of falls Signs or symptoms of abuse and/or No neglect since last visit Have you been in the hospital since your No last visit? Has dressing in place as prescribed Yes Has compression in place as prescribed N/A Has offloadiing in place as prescribed N/A Experienced any changes in pain level or No management Left Footwear Regular Shoe Right Footwear Regular Shoe Pain Scale: 0-10 Numeric Is Patient Pain Free? Yes - Nurse 1 - General Ulcer Measurement Start: 04/14/21 09:48 Freq: Status: Active Protocol: Activity Type Activity Date Activity User E-Sign Co-Sign Detail Recorded Client Recorded Date Recorded By Document 04/14/21 09:48 [facility] [id number] 04/14/21 09:54 [facility] 04/14/21 09:48 Wound Center Nurse 1 #9 LEFT MEDIAL FOOT -Combined with other wound No -Current Size (cm) - Length 0.5 -Current Size (cm) - Width 0.5 -Current Size (cm) - Depth 0.3 -Total Square Cm 0.25 -Photo Taken No -Epithelialization None Present -Tunneling No -Undermining/Tunneling No -Circular Undermining No -Exudate Amt Medium -Exudate Type Purulent -Wound Margin Distinct, Outline Attached -Granulation Amt Small (1-33%) -Granulation Quality Red -Slough/Fibrin Yes -Necrosis Amt Large (67-100%) -Necrotic Tissue Type Adherent Slough -Texture (Анна-wound Skin Appearance) Assessed, Scarring -Moisture (Анна-wound Skin Appearance) Assessed,Dry/ Scaly -Color (Анна-wound Skin Appearance) Assessed -Temperature (Анна-wound Skin No Abnormality Appearance) (Pt Warm) -Tenderness on Palpation (Анна-wound No Skin Appearance) -Ulcer Cleansing Rinsed/ Irrigated with Saline -Foul Odor after Cleansing No -Anesthetic Used 5% Lidocaine Gel WC - Nurse 2 - General Ulcer CM Notes Start: 04/14/21 09:48 Freq: Status: Active Protocol: Activity Type Activity Date Activity User E-Sign Co-Sign Detail Recorded Client Recorded Date Recorded By Document 04/14/21 09:59 REJI [id number] 04/14/21 10:07 REJI 04/14/21 09:59 Wound Center Nurse 2 -Time 10:00 -Correct Patient Yes -Correct Side, Site, Position Yes -Correct Procedure Yes -Procedure Performed Yes -Type of Procedure Debridement -Clinical Debridement Bone -Tissue Removed Slough,Non- viable tissue -Post Debridement (cm) - Length 0.8 -Post Debridement (cm) - Width 0.7 -Post Debridement (cm) - Depth 0.4 -Total Square (Post) (cm) 0.56 -Area of Debridement (cm) - Length 0.8 -Area of Debridement (cm) - Width 0.7 -Total Square (Area) (cm) 0.56 -Tunneling No -Undermining/Tunneling No -Circular Undermining No -Wound/Ulcer Outcome Not Healed -Ulcer Cleansing Rinsed/ Irrigated with Saline -Foul Odor after Cleansing No -Bioengineered Tissue No -Bleeding Controlled with Pressure -Offloading No -Treatment Response Procedure Tolerated Well -Debridement - Subq, 1st 20sq cm No -Debridement - Bone, 1st 20sq cm Yes Pain Scale: 0-10 Numeric Is Patient Pain Free? Yes Assessment/Plan Assessment/Plan (1) Rheumatoid arthritis: CODE(S): M06.9 - Rheumatoid arthritis, unspecified QUALIFIERS: Rheumatoid arthritis location: foot Rheumatoid factor presence: unspecified presence Laterality: bilateral Qualified Code(s): M06.9 - Rheumatoid arthritis, unspecified (2) Fat pad atrophy of foot: CODE(S): L90.9 - Atrophic disorder of skin, unspecified (3) Osteomyelitis, chronic, ankle or foot: CODE(S): M86.679 - Other chronic osteomyelitis, unspecified ankle and foot (4) Delayed wound healing: CODE(S): T14.8XXD - Other injury of unspecified body region, subsequent encounter (5) Steroid long-term use: (6) PAD (peripheral artery disease): CODE(S): I73.9 - Peripheral vascular disease, unspecified (7) Chronic ulcer of left foot with necrosis of bone: CODE(S): L97.524 - Non-pressure chronic ulcer of other part of left foot with necrosis of bone (8) Skin tear of left lower leg without complication: CODE(S): S81.812A - Laceration without foreign body, left lower leg, initial encounter PLAN: Patient seen and examined. Debridement was performed to the left foot as noted in the clinical nursing panel. Soft outer bone was removed until healthy bleeding tissue was noted today. She is noted to have healed all ulcerations except left sub first metatarsal head. She continues to use the offloading inserts with significant improvement noted since beginning use. She has significant increase in swelling to dorsal foot with abrasion/ecchymosis from rubbing on shoe. She is noted to use tubigrip Discussed the swelling may be cardiac in origin. She continues to follow-up with asw/asuw tactical air controller as recommended previously. She has a new skin tear and this was addressed with hydrogel and Adaptic. To avoid placing excessive tape to the peripheral fragile skin in which she pres ented with this today. She was provided with silicone tape today Patient was started on linezolid and Flagyl per Dr. Clements. Patient cultures from 01/19/2021 demonstrated Staphylococcus epididymis and anaerobic cocci. no local signs of infection noted today. This has been completed. She was reassured no local signs of infection noted today. She is already treated for osteomyelitis. Patient is noted to have gotten an offloading shoe inserts for both her slippers and her tennis shoes. Patient relates that she likes them and that she has had less pain ambulating with these. Discussed that she needs to continue to wear these. Discussed that the improvement noted in her wounds is likely largely contributed by these inserts offloading the areas. She is doing well with this plan so far. Discussed with patient going a more palliative wound care route with her chronic nonhealing ulcerations especially given significant comorbidities and treatment of healing with medications Debridement performed as noted. Verbal consent was obtained and she tolerated this well. LEAS 06/30/20 showed moderate distal small vessel disease bilaterally at the digits. The left foot was noted to have biphasic pulses with CRUZ of 1.27 and TBI of 0.37. The left PT was noncompressible. The right foot PT and DP were noncompressible and TBI of 0.4 with triphasic and biphasic pulses. Patient had procedure with Dr Oseguera 07/21/20. Patient reports that the procedure went well. Dr. Oseguera has no further interventions planned at this time. The etiology of her ulcers appears to be from pressure at sites of metatarsal heads as there is significant fat pad atrophy. Discussed with the patient the importance of proper shoe gear with good padding to supplement lost fat pad. This is most likely due to her rheumatoid arthritis, chronic prednisone treatment may also have a role in the nonhealing of the ulcers. Patient has been using offloaded diabetic shoe inserts that she paid for [id number] and picked up from the office last week. Discussed importance of non-smoking, blood sugar control, weight management, offloading, proper nutrition, and hygiene to optimize healing potential. Discussed that her chronic steroid use for her RA can impact wound healing as well as impact her body's ability to mount an immune response. We discussed the option of transitioning her back to her medications under the management of her hogshead opener. I do not think this would benefit her wound healing progression however she understands if she is having flareups and needs to return to the medication that is okay to proceed forward with more of a palliative type wound care plan. Her note will be faxed to [facility] rheumatology. Discussed the importance of proper nutrition including getting enough protein in her diet to help with healing. Bone biopsy 01/05/2021 results of the first metatarsal head on the left foot confirm diagnosis of osteomyelitis infection. Previously obtained MRI also showed osteomyelitis. Patient has undergone multiple rounds of antibiotic treatments per Dr. Clements in infectious disease for this. Surgical treatment options were also discussed with patient but it was decided that it was not worth the risk of potentially creating a larger wound that potentially more bacteria could then get into to infect the wound. Patient is a poor surgical candidate. Updated left foot x-ray ordered. Updated left foot x-ray did not demonstrate any progressive osseous destruction soft tissue emphysema or foreign body. She also has decreased bone density noted on this foot. Patient saw Dr. Steinberg for HBO evaluation. This was given prior to patient's recent heart attack and hospital admission. Patient will need to get cardiac clearance prior to being approved for HBO. This was not given at this time. We will potentially reconsider HBO therapy in the future if ever given cardiac clearance. We will hold off on this due to her recent fatigue. Encouraged protein rich diet and protein supplements. Discussed Vick supplementation. Patient is overall frail appearance with muscle atrophy noted. All questions answered. She is stable and will follow up in 2 weeks. Dressings: Continue wound care to foot ulcerations daily. To use Aquacel silver. To moisturize the legs and feet daily. Patient was given Tubigrip's for compression and edema control. To pad and protect abrasion and preulcerative area This note was generated with [employer] dictation software. It may contain incorrect words, spelling, and punctuation that were not noted in checking the note before signing. 20 minutes was spent on this encounter. This included face to face and non face to face care including preparing for the visit, reviewing the history, performing the exam, counseling and providing education to the patient, family, or caregiver, ordering medications/test/ procedures if indicated as documented, communicating with other healthcare providers, documenting information in the medical record, interpreting / sharing this information when indicated as documented, and care coordination.
[2021-04-21 09:56] VITALS: BP 161/86; PULSE 71; RESP 18; BMI 18.6
--- NOTE | 2021-04-21 11:05 | PN.PCM_ITS ---
History of Present Illness Date of Service: 04/21/21 Chief Complaint: Left 1st metatarsal ulceration with chronic refractory os teomyelitis of the left first metatarsal. new left foot ulcer left foot skin tear History of Wound: Kylah is a 75-year-old female who was referred here for treatment bilateral feet ulcerations. Patient is noted to have significant fat pad atrophy likely secondary to her rheumatoid arthritis. Patient is on multiple medications for her rheumatoid arthritis which are impeding her wound healing. Patient is also prone to breakdown given lack of fat pad. Patient noted to have had MRIs which showed osteomyelitis and has been treated by Dr. Clements with antibiotic treatments. Patient is a poor surgical candidate given her poor healing status and multiple comorbidities. The patient has had vascular studies on 06/30/20 showed moderate distal small vessel disease bilaterally at the digits with some non compressible vessels. Patient saw her vascular surgeon, Dr Oseguera, who did intervention on the patient on 07/21/20. Dr. Oseguera has no further interventions planned at this time. She had MRI on 06/25/20 which showed osteomyelitis to left 1st metatarsal. The patient is noted to be a prior prison user of prednisone and methotrexate for her rheumatoid arthritis. These are acknowledged to be possible inhibitors to wound healing. Patient noted to have painful feet due to her rheumatoid arthritis. Patient is also noted to have had recent heart attack and has been started on blood thinners for this. More recently, 01/19/21 cultures show anaerobic cocci and staph epi. Patient has followed up with Dr Clements with infectious disease over infection. She offloads with Plastizote accommodative inserts in her house slippers. She is a fall risk She denies fever, chills, nausea, vomiting. She applied a significant amount of tape directly on her skin and now has a skin tear last week. She is also not aware that she has a new ulcer. Progress of Wound: Stable sub first metatarsal head with improved quality Stable and improving dorsal left foot skin tear New left foot ulcer stable Objective Data Objective Data Vital Signs: Vital Signs Temp Pulse Resp BP 97 F L 71 18 161/86 H 04/14/21 09:48 04/21/21 09:56 04/21/21 09:56 04/21/21 09:56 Oxygen Delivery Method Room Air Weight: 46.266 kg Body Mass Index (BMI) 18.6 Physical Exam Narrative Const alert and no apparent distress General Appearance: cooperative and comfortable Patient has overall frail appearance Extremity no calf tenderness, negative yasmine and baker sign No lower extremity edema General Extremity: tenderness to palpation palpable metatarsal heads. There is Significant fat pad atrophy noted with easily palpable metatarsal heads 1 through 5 bilaterally. Negative for clubbing or cyanosis or ecchymosis or erythema Vasc Peripheral Pulses: posterior tibial pulses absent and dorsalis pedis pulses present but diminished, normal capillary refill, no acute ischemic skin changes noted, cool temperature Skin General Skin Exam: dry flaky atrophic skin to entire bilateral lower extremities, absent hair growth noted; Negative for ecchymosis, eschar, pallor, rashes. Patient skin in general is in very poor condition especially since starting blood thinners. Her arms are noted to be extremely dark and discolored to her entire forearms. Wound Narrative: ulcers noted to plantar first metatarsal head left and medial forefoot left. left subfirst metatarsal head ulceration. Bone continues to be exposed and is white and healthier in appearance-stable. Less serous drainage noted. No surrounding erythema or edema. No malodor, streaking, fluctuation, crepitus. Skin is atrophic and hairless. There is a new lateral fifth metatarsal head ulcer that is fibrous and dry without exposed bone or deep tissue necrosis or infection. Dorsal lateral left foot with skin tear and hematogenous drainage no infection is reduced in size with some newer some hemorrhagic tissue and decrease granulation tissue. There is significant amount of fat pad atrophy noted to bilateral feet secondary to patient's rheumatoid arthritis. There is noted minimal callus at previous ulceration sites. Pain to palpation of plantar forefoot bilaterally resolved Right forefoot ecchymosis to all digits and forefoot with adjacent edema Neuro Gait (Neuro): heel to toe. Guarded, slow, and unsteady Sensory Exam: extremities light-touch: Intact Debridement Note Debridement Note Wound debrided: L sub1st metatarsal head, lateral fifth metatarsal head,dorsal ft skin tear Wound Grade/Stage: Type of Debridement: Excisional debridement Anesthesia Used: 4% Lidocaine Solution Depth: in the subcutaneous layer Percentage of wound debrided: 100 Instrument Used: #15 blade Tissue Removed: fibrous, devitalized subcutaneous, biofilm, slough Severity: Fat Layer Exposed Amount of bleeding with debridement: Mild Bleeding Controlled with: Pressure Patient tolerated procedure: Patient tolerated procedure well Post-Debridement Measurements and Additional Note: Post-Debridement Measurements/Treatment - Nurse 1 - General Ulcer Assessment Start: 04/14/21 09:48 Freq: Status: Active Protocol: GEORGE Activity Type Activity Date Activity User E-Sign Co-Sign Detail Recorded Client Recorded Date Recorded By Document 04/14/21 09:48 [facility] [id number] 04/14/21 09:54 [facility] Document 04/21/21 09:56 MI [id number] 04/21/21 10:03 MI 04/14/21 04/21/21 09:48 09:56 - Today's Visit Information Type of service 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 ) Arrival Mode Ambulatory Ambulatory Transfer Assistance None Accompanied by self Patient Identification Verified (Name & Yes Yes ) Patient Requires Transmission-Based No Precautions Height and Weight Body Mass Index (BMI) 18.6 18.6 BMI Classification Normal Normal Vital Signs Temperature (97.8 F-99.1 F) 97 F L Temperature Source Temporal Temporal Pulse Rate (60-100) 76 71 Pulse Location Monitor Monitor Respiratory Rate (12-18) 16 18 Respiratory rate source Observation Observation Oxygen Delivery Method Room Air Room Air Blood Pressure (90/60-120/80) 161/73 H 161/86 H Blood Pressure Mean (mm Hg) 102 111 Source Monitor Monitor Position Sitting Sitting Blood Pressure Location Left Arm Left Arm History Since Last Visit- (Skip if this is Patient's initial visit) Have you changed medications since your No No last visit? Any new allergies or adverse reactions No No Had a fall/change in ADL's that may No No increase risk of falls Signs or symptoms of abuse and/or No No neglect since last visit Have you been in the hospital since your No No last visit? Has dressing in place as prescribed Yes Yes Has compression in place as prescribed N/A Yes Has offloadiing in place as prescribed N/A N/A Experienced any changes in pain level or No No management Left Footwear Regular Shoe Regular Shoe Right Footwear Regular Shoe Regular Shoe Pain Scale: 0-10 Numeric Is Patient Pain Free? Yes SHAHANA - Nurse 1 - General Ulcer Measurement Start: 04/14/21 09:48 Freq: Status: Active Protocol: Activity Type Activity Date Activity User E-Sign Co-Sign Detail Recorded Client Recorded Date Recorded By Document 04/14/21 09:48 [facility] [id number] 04/14/21 09:54 [facility] Document 04/21/21 09:56 MI [id number] 04/21/21 10:03 MI 04/14/21 04/21/21 09:48 09:56 Wound Center Nurse 1 #9 LEFT MEDIAL FOOT -Combined with other wound No -Current Size (cm) - Length 0.5 0.5 -Current Size (cm) - Width 0.5 1.0 -Current Size (cm) - Depth 0.3 0.6 -Total Square Cm 0.25 0.50 -Photo Taken No -Epithelialization None Present -Tunneling No -Undermining/Tunneling No -Circular Undermining No Yes -Exudate Amt Medium Small -Exudate Type Purulent Purulent -Wound Margin Distinct, Flat & Intact Outline Attached -Granulation Amt Small (1-33%) Medium (34-66%) -Granulation Quality [place] -Slough/Fibrin Yes -Necrosis Amt Large (67-100%) Medium (34-66%) -Necrotic Tissue Type Adherent Slough Adherent Slough -Structure Exposed Bone -Texture (Анна-wound Skin Appearance) Assessed, Assessed Scarring -Moisture (Анна-wound Skin Appearance) Assessed,Dry/ Assessed Scaly -Color (Анна-wound Skin Appearance) Assessed Assessed -Temperature (Анна-wound Skin No Abnormality No Abnormality Appearance) (Pt Warm) (Pt Warm) -Tenderness on Palpation (Анна-wound No No Skin Appearance) -Ulcer Cleansing Rinsed/ Soap and Water Irrigated with Saline -Foul Odor after Cleansing No No -Anesthetic Used 5% Lidocaine 4% Lidocaine Gel Solution Left Calf (cm) 27.5 Left Ankle (cm) 16.2 WC - Nurse 2 - General Ulcer CM Notes Start: 04/14/21 09:48 Freq: Status: Active Protocol: Activity Type Activity Date Activity User E-Sign Co-Sign Detail Recorded Client Recorded Date Recorded By Document 04/14/21 09:59 [id number] 04/14/21 10:07 Document 04/21/21 10:18 [id number] 04/21/21 10:24 REJI 04/14/21 04/21/21 09:59 10:18 Wound Center Nurse 2 10-left lateral foot 5th methead -Time 10:21 -Correct Patient Yes -Correct Side, Site, Position Yes -Correct Procedure Yes -Procedure Performed Yes -Type of Procedure Debridement -Clinical Debridement Subcutaneous -Tissue Removed Subcutaneous -Post Debridement (cm) - Length 0.3 -Post Debridement (cm) - Width 0.2 -Post Debridement (cm) - Depth 0.2 -Total Square (Post) (cm) 0.06 -Area of Debridement (cm) - Length 0.3 -Area of Debridement (cm) - Width 0.2 -Total Square (Area) (cm) 0.06 -Tunneling No -Undermining/Tunneling No -Circular Undermining No -Wound/Ulcer Outcome Not Healed -Ulcer Cleansing Rinsed/ Irrigated with Saline -Foul Odor after Cleansing No -Bioengineered Tissue No -Bleeding Controlled with Pressure -Offloading No -Treatment Response Procedure Tolerated Well -Debridement - Subq, 1st 20sq cm No #9 LEFT MEDIAL FOOT -Time 10:00 10:18 -Correct Patient Yes Yes -Correct Side, Site, Position Yes Yes -Correct Procedure Yes Yes -Procedure Performed Yes Yes -Type of Procedure Debridement Debridement -Clinical Debridement Bone Subcutaneous -Tissue Removed Slough,Non- Subcutaneous viable tissue -Post Debridement (cm) - Length 0.8 0.5 -Post Debridement (cm) - Width 0.7 0.6 -Post Debridement (cm) - Depth 0.4 0.4 -Total Square (Post) (cm) 0.56 0.30 -Area of Debridement (cm) - Length 0.8 0.5 -Area of Debridement (cm) - Width 0.7 0.6 -Total Square (Area) (cm) 0.56 0.30 -Tunneling No No -Undermining/Tunneling No No -Circular Undermining No No -Wound/Ulcer Outcome Not Healed Not Healed -Ulcer Cleansing Rinsed/ Rinsed/ Irrigated with Irrigated with Saline Saline -Foul Odor after Cleansing No No -Bioengineered Tissue No No -Bleeding Controlled with Pressure Pressure -Offloading No No -Treatment Response Procedure Procedure Tolerated Well Tolerated Well -Debridement - Subq, 1st 20sq cm No Yes -Debridement - Bone, 1st 20sq cm Yes Pain Scale: 0-10 Numeric Is Patient Pain Free? Yes Yes WC - Nurse 3 - General Ulcer D/C NN Start: 04/14/21 09:48 Freq: Status: Active Protocol: Activity Type Activity Date Activity User E-Sign Co-Sign Detail Recorded Client Recorded Date Recorded By Document 04/14/21 10:10 HANNAH [id number] 04/14/21 10:14 HANNAH 04/14/21 10:10 Wound Care Nurse 3 #9 LEFT MEDIAL FOOT -Ulcer Cleansing Rinsed/ Irrigated with Saline -Primary Dressing Applied Aquacel AG 2x2, NonAdherent Contact Layer -Primary Dressing Covered/Secured with Dry Gauze,Dry Gauze & Roll Gauze,Secured with Tape -Aquacel AG 2x2 1 Treatment Response Procedure Tolerated Well Pain Scale: 0-10 Numeric Is Patient Pain Free? Yes WC - Visit Discharge Discharge Condition Stable Ambulatory Status Ambulatory Transportation Private Auto Medication Reconcilliation completed & No provided to patient/care provider Clinical Summary of Care Provided Yes Notes: adaptic and hydrogel to skin tear Assessment/Plan Assessment/Plan (1) Rheumatoid arthritis: CODE(S): M06.9 - Rheumatoid arthritis, unspecified QUALIFIERS: Laterality: bilateral Rheumatoid arthritis location: foot Rheumatoid factor presence: unspecified presence Qualified Code(s): M06.9 - Rheumatoid arthritis, unspecified (2) Fat pad atrophy of foot: CODE(S): L90.9 - Atrophic disorder of skin, unspecified (3) Osteomyelitis, chronic, ankle or foot: CODE(S): M86.679 - Other chronic osteomyelitis, unspecified ankle and foot (4) Delayed wound healing: CODE(S): T14.8XXD - Other injury of unspecified body region, subsequent encounter (5) Steroid long-term use: (6) PAD (peripheral artery disease): CODE(S): I73.9 - Peripheral vascular disease, unspecified (7) Chronic ulcer of left foot with necrosis of bone: CODE(S): L97.524 - Non-pressure chronic ulcer of other part of left foot with necrosis of bone (8) Skin tear of left lower leg without complication: CODE(S): S81.812A - Laceration without foreign body, left lower leg, initial encounter PLAN: Patient seen and examined. Debridement was performed to the left foot as noted in the clinical nursing panel. She is noted to have healed all ulcerations except left sub first metatarsal head. She continues to use the offloading inserts with significant improvement noted since beginning use. She has significant increase in swelling to dorsal foot with abrasion/ecchymosis from rubbing on shoe. She is noted to use tubigrip. Discussed the swelling may be cardiac in origin. She continues to follow-up with wood form builder as recommended previously. She has a new skin tear and this was addressed with hydrogel and Adaptic. To avoid placing excessive tape to the peripheral fragile skin in which she presented with this today. She was provided with silicone tape today. Patient was started on linezolid and Flagyl per Dr. Clements. Patient cultures from 01/19/2021 demonstrated Staphylococcus epididymis and anaerobic cocci. no local signs of infection noted today. This has been completed. She was reassured no local signs of infection noted today. She is already treated for osteomyelitis. Patient is noted to have gotten an offloading shoe inserts for both her slippers and her tennis shoes. Patient relates that she likes them and that she has had less pain ambulating with these. Discussed that she needs to continue to wear these. Discussed that the improvement noted in her wounds is likely largely contributed by these inserts offloading the areas. She is doing well with this plan so far. Discussed with patient going a more palliative wound care route with her chronic nonhealing ulcerations especially given significant comorbidities and treatment of healing with medications Debridement performed as noted. Verbal consent was obtained and she tolerated this well. LEAS 06/30/20 showed moderate distal small vessel disease bilaterally at the digits. The left foot was noted to have biphasic pulses with CRUZ of 1.27 and TBI of 0.37. The left PT was noncompressible. The right foot PT and DP were noncompressible and TBI of 0.4 with triphasic and biphasic pulses. Patient had procedure with Dr Oseguera 07/21/20. Patient reports that the procedure went well. Dr. Oseguera has no further interventions planned at this time. The etiology of her ulcers appears to be from pressure at sites of metatarsal heads as there is significant fat pad atrophy. Discussed with the patient the importance of proper shoe gear with good padding to supplement lost fat pad. This is most likely due to her rheumatoid arthritis, chronic prednisone treatment may also have a role in the nonhealing of the ulcers. Patient has been using offloaded diabetic shoe inserts that she paid for [id number] and picked up from the office last week. Discussed importance of non-smoking, blood sugar control, weight management, offloading, proper nutrition, and hygiene to optimize healing potential. Discussed that her chronic steroid use for her RA can impact wound healing as well as impact her body's ability to mount an immune response. We discussed the option of transitioning her back to her medications under the management of her environmental field services technician. I do not think this would benefit her wound healing progression however she understands if she is having flareups and needs to return to the medication that is okay to proceed forward with more of a palliative type wound care plan. Her note will be faxed to [facility] rheumatology. Discussed the importance of proper nutrition including getting enough protein in her diet to help with healing. Bone biopsy 01/05/2021 results of the first metatarsal head on the left foot confirm diagnosis of osteomyelitis infection. Previously obtained MRI also showed osteomyelitis. Patient has undergone multiple rounds of antibiotic treatments per Dr. Clements in infectious disease for this. Surgical treatment options were also discussed with patient but it was decided that it was not worth the risk of potentially creating a larger wound that potentially more bacteria could then get into to infect the wound. Patient is a poor surgical candidate. Updated left foot x-ray ordered. Updated left foot x-ray did not demonstrate any progressive osseous destruction soft tissue emphysema or foreign body. She also has decreased bone density noted on this foot. Patient saw Dr. Steinberg for HBO evaluation. This was given prior to patient's recent heart attack and hospital admission. Patient will need to get cardiac clearance prior to being approved for HBO. This was not given at this time. We will potentially reconsider HBO therapy in the future if ever given cardiac clearance. We will hold off on this due to her recent fatigue. Encouraged protein rich diet and protein supplements. Discussed Vick supplementation. Patient is overall frail appearance with muscle atrophy noted. All questions answered. She is stable and will follow up in 2 weeks. Dressings: Continue wound care to foot ulcerations daily. To use Aquacel silver to subfirst metatarsal head ulcer site and hydrogel to other ulcers. To moisturize the legs and feet daily. Patient was given Tubigrip's for compress ion and edema control. To pad and protect abrasion and preulcerative area This note was generated with [employer] dictation software. It may contain incorrect words, spelling, and punctuation that were not noted in checking the note before signing. The medical decision making level is low. There is noted low risk of morbidity after considering this treatment plan and diagnostic data. The problems addressed require a low medical decision making level which includes two or more minor problems, a stable chronic illness, or an acute uncomplicated illness or injury.
== END 2021-05-07 23:59 ==
LOC: WC 10:00
PROVIDERS: PCP Physician Assistant; Visit Provider Podiatrist
DX: E11.621 Type 2 diabetes mellitus with foot ulcer (principal); L97.524 Non-pressure chronic ulcer of other part of left foot with necrosis of bone; M06.9 Rheumatoid arthritis, unspecified; L90.9 Atrophic disorder of skin, unspecified; M86.679 Other chronic osteomyelitis, unspecified ankle and foot; T14.8XXD Other injury of unspecified body region, subsequent encounter; I73.9 Peripheral vascular disease, unspecified; S81.812A Laceration without foreign body, left lower leg, initial encounter; Z79.52 Long term (current) use of systemic steroids; E11.51 Type 2 diabetes mellitus with diabetic peripheral angiopathy without gangrene; I25.2 Old myocardial infarction; Z79.01 Long term (current) use of anticoagulants
CPT/HCPCS: 11042; 11044

== ENCOUNTER 2021-05-26 10:00 | Outpatient (RCR) | payer MEDICARE, SELFPAY ==
[2021-05-08 00:24] VITALS: BP 161/86; PULSE 71; RESP 18; TEMP 36.1; BMI 18.6
[2021-05-12 10:04] VITALS: BP 154/83; PULSE 73; RESP 18; TEMP 36.3; BMI 18.6
--- NOTE | 2021-05-12 22:27 | PN.PCM_ITS ---
History of Present Illness Date of Service: 05/12/21 Chief Complaint: Left 1st metatarsal ulceration with chronic refractory os teomyelitis of the left first metatarsal. new left foot ulcer left foot skin tear History of Wound: Kylah is a 76-year-old female who was referred here for treatment bilateral feet ulcerations. Patient is noted to have significant fat pad atrophy likely secondary to her rheumatoid arthritis. Patient is on multiple medications for her rheumatoid arthritis which are impeding her wound healing. Patient is also prone to breakdown given lack of fat pad. Patient noted to have had MRIs which showed osteomyelitis and has been treated by Dr. lCements with antibiotic treatments. Patient is a poor surgical candidate given her poor healing status and multiple comorbidities. The patient has had vascular studies on 06/30/20 showed moderate distal small vessel disease bilaterally at the digits with some non compressible vessels. Patient saw her vascular surgeon, Dr Oseguera, who did intervention on the patient on 07/21/20. Dr. Oseguera has no further interventions planned at this time. She had MRI on 06/25/20 which showed osteomyelitis to left 1st metatarsal. The patient is noted to be a prior fdc user of prednisone and methotrexate for her rheumatoid arthritis. These are acknowledged to be possible inhibitors to wound healing. Patient noted to have painful feet due to her rheumatoid arthritis. Patient is also noted to have had recent heart attack and has been started on blood thinners for this. More recently, 01/19/21 cultures show anaerobic cocci and staph epi. Patient has followed up with Dr Clements with infectious disease over infection. She offloads with Plastizote accommodative inserts in her house slippers. She is a fall risk She denies fever, chills, nausea, vomiting. She denies new injuries this week. Progress of Wound: stable Objective Data Objective Data Vital Signs: Vital Signs Temp Pulse Resp BP 97.3 F L 73 18 154/83 H 05/12/21 10:04 05/12/21 10:04 05/12/21 10:04 05/12/21 10:04 Weight: 46.266 kg Body Mass Index (BMI) 18.6 Physical Exam Narrative Const alert and no apparent distress General Appearance: cooperative and comfortable Patient has overall frail appearance Extremity no calf tenderness, negative yasmine and baker sign No lower extremity edema General Extremity: tenderness to palpation palpable metatarsal heads. There is Significant fat pad atrophy noted with easily palpable metatarsal heads 1 through 5 bilaterally. Negative for clubbing or cyanosis or ecchymosis or erythema Vasc Peripheral Pulses: posterior tibial pulses absent and dorsalis pedis pulses present but diminished, normal capillary refill, no acute ischemic skin changes noted, cool temperature Skin General Skin Exam: dry flaky atrophic skin to entire bilateral lower extremities, absent hair growth noted; Negative for ecchymosis, eschar, pallor, rashes. Patient skin in general is in very poor condition especially since starting blood thinners. Her arms are noted to be extremely dark and discolored to her entire forearms. Wound Narrative: ulcers noted to plantar first metatarsal head left and medial forefoot left. left subfirst metatarsal head ulceration. Bone continues to be exposed and is white and healthier in appearance-stable. Less serous drainage noted. No surrounding erythema or edema. No malodor, streaking, fluctuation, crepitus. Skin is atrophic and hairless. There is a new lateral fifth metatarsal head ulcer that is fibrous and dry without exposed bone or deep tissue necrosis or infection. Dorsal lateral left foot with skin tear and hematogenous drainage no infection is reduced in size with some newer some hemorrhagic tissue and decrease granulation tissue. There is significant amount of fat pad atrophy noted to bilateral feet secondary to patient's rheumatoid arthritis. There is noted minimal callus at previous ulceration sites. Pain to palpation of plantar forefoot bilaterally resolved Right forefoot ecchymosis to all digits and forefoot with adjacent edema Neuro Gait (Neuro): heel to toe. Guarded, slow, and unsteady Sensory Exam: extremities light-touch: Intact Debridement Note Debridement Note Post-Debridement Measurements and Additional Note: Post-Debridement Measurements/Treatment - Nurse 1 - General Ulcer Assessment Start: 05/12/21 10:01 Freq: Status: Active Protocol: [email or web address].LOWEXT Activity Type Activity Date Activity User E-Sign Co-Sign Detail Recorded Client Recorded Date Recorded By Document 05/12/21 10:04 MS [id number] 05/12/21 10:13 OK 05/12/21 10:04 - Today's Visit Information Type of service Nurse-only Visit Arrival Mode Ambulatory Transfer Assistance None Patient Identification Verified (Name & Yes ) Patient Requires Transmission-Based No Precautions Height and Weight Body Mass Index (BMI) 18.6 BMI Classification Normal Vital Signs Temperature (97.8 F-99.1 F) 97.3 F L Temperature Source Temporal Pulse Rate (60-100) 73 Respiratory Rate (12-18) 18 Respiratory rate source Observation Blood Pressure (90/60-120/80) 154/83 H Blood Pressure Mean (mm Hg) 106 Source Monitor History Since Last Visit- (Skip if this is Patient's initial visit) Have you changed medications since your No last visit? Any new allergies or adverse reactions No Had a fall/change in ADL's that may No increase risk of falls Signs or symptoms of abuse and/or No neglect since last visit Have you been in the hospital since your No last visit? Has dressing in place as prescribed Yes Has compression in place as prescribed Yes Experienced any changes in pain level or No management Pain Scale: 0-10 Numeric Is Patient Pain Free? Yes WC - Nurse 1 - General Ulcer Measurement Start: 05/12/21 10:01 Freq: Status: Active Protocol: Activity Type Activity Date Activity User E-Sign Co-Sign Detail Recorded Client Recorded Date Recorded By Document 05/12/21 10:04 OK [id number] 05/12/21 10:13 OK 05/12/21 10:04 Wound Center Nurse 1 10-left lateral foot 5th methead -Current Size (cm) - Length 0.1 -Current Size (cm) - Width 0.1 -Current Size (cm) - Depth 0.1 -Total Square Cm 0.01 -Photo Taken No -Exudate Amt None Present -Wound Margin Flat & Intact -Granulation Amt Small (1-33%) -Granulation Quality [place] -Necrosis Amt None Present (0 %) -Structure Exposed N/A -Texture (Анна-wound Skin Appearance) Scarring -Moisture (Анна-wound Skin Appearance) No Abnormality -Color (Анна-wound Skin Appearance) Erythema -Temperature (Анна-wound Skin No Abnormality Appearance) (Pt Warm) -Tenderness on Palpation (Анна-wound No Skin Appearance) -Ulcer Cleansing Soap and Water -Foul Odor after Cleansing No -Anesthetic Used 5% Lidocaine Gel #9 LEFT MEDIAL FOOT -Current Size (cm) - Length 0.6 -Current Size (cm) - Width 0.6 -Current Size (cm) - Depth 0.5 -Total Square Cm 0.36 -Photo Taken No -Maximum Distance #2 (cm) 0.2 -Circular Undermining Yes -Exudate Type Purulent -Wound Margin Distinct, Outline Attached -Granulation Amt None Present (0 %) -Necrosis Amt Large (67-100%) -Necrotic Tissue Type Adherent Slough -Structure Exposed Bone -Texture (Анна-wound Skin Appearance) Scarring -Moisture (Анна-wound Skin Appearance) Dry/Scaly -Color (Анна-wound Skin Appearance) No Abnormality -Temperature (Анна-wound Skin No Abnormality Appearance) (Pt Warm) -Tenderness on Palpation (Анна-wound No Skin Appearance) -Ulcer Cleansing Soap and Water -Foul Odor after Cleansing No -Anesthetic Used 5% Lidocaine Gel WC - Nurse 2 - General Ulcer CM Notes Start: 05/12/21 10:01 Freq: Status: Active Protocol: Activity Type Activity Date Activity User E-Sign Co-Sign Detail Recorded Client Recorded Date Recorded By Document 05/12/21 10:24 REJI [id number] 05/12/21 10:27 REJI 05/12/21 10:24 Wound Center Nurse 2 10-left lateral foot 5th methead -Time 10:24 -Correct Patient Yes -Correct Side, Site, Position Yes -Correct Procedure Yes -Procedure Performed Yes -Type of Procedure Debridement -Clinical Debridement Subcutaneous -Tissue Removed Subcutaneous -Post Debridement (cm) - Length 0.5 -Post Debridement (cm) - Width 0.4 -Post Debridement (cm) - Depth 0.2 -Total Square (Post) (cm) 0.20 -Area of Debridement (cm) - Length 0.5 -Area of Debridement (cm) - Width 0.4 -Total Square (Area) (cm) 0.20 -Tunneling No -Undermining/Tunneling No -Circular Undermining No -Wound/Ulcer Outcome Not Healed -Ulcer Cleansing Rinsed/ Irrigated with Saline -Foul Odor after Cleansing No -Bioengineered Tissue No -Bleeding Controlled with Pressure -Offloading No -Treatment Response Procedure Tolerated Well -Debridement - Subq, 1st 20sq cm Yes #9 LEFT MEDIAL FOOT -Time 10:25 -Correct Patient Yes -Correct Side, Site, Position Yes -Correct Procedure Yes -Procedure Performed Yes -Type of Procedure Debridement -Clinical Debridement Subcutaneous -Tissue Removed Subcutaneous -Post Debridement (cm) - Length 0.5 -Post Debridement (cm) - Width 0.7 -Post Debridement (cm) - Depth 0.4 -Total Square (Post) (cm) 0.35 -Area of Debridement (cm) - Length 0.5 -Area of Debridement (cm) - Width 0.7 -Total Square (Area) (cm) 0.35 -Tunneling No -Undermining/Tunneling No -Circular Undermining No -Wound/Ulcer Outcome Not Healed -Ulcer Cleansing Rinsed/ Irrigated with Saline -Foul Odor after Cleansing No -Bioengineered Tissue No -Bleeding Controlled with Pressure -Offloading No -Treatment Response Procedure Tolerated Well -Debridement - Subq, 1st 20sq cm No Pain Scale: 0-10 Numeric Is Patient Pain Free? Yes WC - Nurse 3 - General Ulcer D/C NN Start: 05/12/21 10:01 Freq: Status: Active Protocol: Activity Type Activity Date Activity User E-Sign Co-Sign Detail Recorded Client Recorded Date Recorded By Document 05/12/21 10:53 OK [id number] 05/12/21 10:54 OK 05/12/21 10:53 Wound Care Nurse 3 10-left lateral foot 5th methead -Ulcer Cleansing Rinsed/ Irrigated with Saline -Foul Odor after Cleansing No -Negative Pressure Wound Therapy N/A -Primary Dressing Applied C Hydrogel ($) -Primary Dressing Covered/Secured with Dry Gauze & Roll Gauze, Secured with Tape #9 LEFT MEDIAL FOOT -Ulcer Cleansing Rinsed/ Irrigated with Saline -Foul Odor after Cleansing No -Negative Pressure Wound Therapy N/A -Primary Dressing Applied Aquacel AG 4x4 -Primary Dressing Covered/Secured with Dry Gauze & Roll Gauze, Secured with Tape -Aquacel AG 4x4 1 - Visit Discharge Discharge Condition Stable Ambulatory Status Ambulatory Transportation Private Auto Medication Reconcilliation completed & No provided to patient/care provider Clinical Summary of Care Provided Yes Assessment/Plan Assessment/Plan (1) Rheumatoid arthritis: CODE(S): M06.9 - Rheumatoid arthritis, unspecified QUALIFIERS: Rheumatoid arthritis location: foot Rheumatoid factor presence: unspecified presence Laterality: bilateral Qualified Code(s): M06.9 - Rheumatoid arthritis, unspecified (2) Fat pad atrophy of foot: CODE(S): L90.9 - Atrophic disorder of skin, unspecified (3) Osteomyelitis, chronic, ankle or foot: CODE(S): M86.679 - Other chronic osteomyelitis, unspecified ankle and foot (4) Delayed wound healing: CODE(S): T14.8XXD - Other injury of unspecified body region, subsequent encounter (5) Steroid long-term use: (6) PAD (peripheral artery disease): CODE(S): I73.9 - Peripheral vascular disease, unspecified (7) Chronic ulcer of left foot with necrosis of bone: CODE(S): L97.524 - Non-pressure chronic ulcer of other part of left foot with necrosis of bone (8) Skin tear of left lower leg without complication: CODE(S): S81.812A - Laceration without foreign body, left lower leg, initial encounter PLAN: Patient seen and examined. Debridement was performed to the left foot as noted in the clinical nursing panel. She is noted to have healed all ulcerations except left sub first metatarsal head. She continues to use the offloading inserts with significant improvement noted since beginning use. She has significant increase in swelling to dorsal foot with abrasion/ecchymosis from rubbing on shoe. She is noted to use tubigrip. Discussed the swelling may be cardiac in origin. She continues to follow-up with lead radiation therapist as recommended previously. She has a newer skin tear / ulcer and this was addressed with hydrogel and Adaptic. To avoid placing excessive tape to the peripheral fragile skin in which she presented with this today. She was provided with silicone tape today. Patient was started on linezolid and Flagyl per Dr. Clements. Patient cultures from 01/19/2021 demonstrated Staphylococcus epididymis and anaerobic cocci. no local signs of infection noted today. This has been completed. She was reassured no local signs of infection noted today. She is already treated for osteomyelitis. Patient is noted to have gotten an offloading shoe inserts for both her slippers and her tennis shoes. Patient relates that she likes them and that she has had less pain ambulating with these. Discussed that she needs to continue to wear these. Discussed that the improvement noted in her wounds is likely largely contributed by these inserts offloading the areas. She is doing well with this plan so far. Discussed with patient going a more palliative wound care route with her chronic nonhealing ulcerations especially given significant comorbidities and treatment of healing with medications Debridement performed as noted. Verbal consent was obtained and she tolerated this well. LEAS 06/30/20 showed moderate distal small vessel disease bilaterally at the digits. The left foot was noted to have biphasic pulses with CRUZ of 1.27 and TBI of 0.37. The left PT was noncompressible. The right foot PT and DP were noncompressible and TBI of 0.4 with triphasic and biphasic pulses. Patient had procedure with Dr Oseguera 07/21/20. Patient reports that the procedure went well. Dr. Oseguera has no further interventions planned at this time. The etiology of her ulcers appears to be from pressure at sites of metatarsal heads as there is significant fat pad atrophy. Discussed with the patient the importance of proper shoe gear with good padding to supplement lost fat pad. This is most likely due to her rheumatoid arthritis, chronic prednisone treatment may also have a role in the nonhealing of the ulcers. Patient has been using offloaded diabetic shoe inserts that she paid for [id number] and picked up from the office last week. Discussed importance of non-smoking, blood sugar control, weight management, offloading, proper nutrition, and hygiene to optimize healing potential. Discussed that her chronic steroid use for her RA can impact wound healing as well as impact her body's ability to mount an immune response. We discussed the option of transitioning her back to her medications under the management of her executive compensation analyst. I do not think this would benefit her wound healing progression however she understands if she is having flareups and needs to return to the medication that is okay to proceed forward with more of a palliative type wound care plan. Her note will be faxed to [facility] rheumatology. Discussed the importance of proper nutrition including getting enough protein in her diet to help with healing. Bone biopsy 01/05/2021 results of the first metatarsal head on the left foot confirm diagnosis of osteomyelitis infection. Previously obtained MRI also showed osteomyelitis. Patient has undergone multiple rounds of antibiotic treatments per Dr. Clements in infectious disease for this. Surgical treatment options were also discussed with patient but it was decided that it was not worth the risk of potentially creating a larger wound that potentially more bact eria could then get into to infect the wound. Patient is a poor surgical candidate. Updated left foot x-ray ordered. Updated left foot x-ray did not demonstrate any progressive osseous destruction soft tissue emphysema or foreign body. She also has decreased bone density noted on this foot. Patient saw Dr. Steinberg for HBO evaluation. This was given prior to patient's recent heart attack and hospital admission. Patient will need to get cardiac clearance prior to being approved for HBO. This was not given at this time. We will potentially reconsider HBO therapy in the future if ever given cardiac clearance. We will hold off on this due to her recent fatigue. Encouraged protein rich diet and protein supplements. Discussed Vick supplementation. Patient is overall frail appearance with muscle atrophy noted. All questions answered. She is stable and will follow up in 2 weeks. Dressings: Continue wound care to foot ulcerations daily. To use Aquacel silver to subfirst metatarsal head ulcer site and hydrogel to other ulcers. To moisturize the legs and feet daily. Patient was given Tubigrip's for compression and edema control. To pad and protect abrasion and preulcerative ar ea This note was generated with Yap dictation software. It may contain incorrect words, spelling, and punctuation that were not noted in checking the note before signing. The medical decision making level is low. There is noted low risk of morbidity after considering this treatment plan and diagnostic data. The problems addressed require a low medical decision making level which includes two or more minor problems, a stable chronic illness, or an acute uncomplicated illness or injury.
[2021-05-26 09:51] VITALS: BP 158/78; PULSE 75; RESP 16; TEMP 36.4; BMI 18.6
--- NOTE | 2021-05-26 10:35 | PCM.WC.PN ---
History of Present Illness Date of Service: 05/26/21 Chief Complaint: Left 1st metatarsal ulceration with chronic refractory osteomyelitis of the left first metatarsal. new left foot ulcer left foot skin tear History of Wound: Kylah is a 76-year-old female who was referred here for treatment bilateral feet ulcerations. Patient is noted to have significant fat pad atrophy likely secondary to her rheumatoid arthritis. Patient is on multiple medications for her rheumatoid arthritis which are impeding her wound healing. Patient is also prone to breakdown given lack of fat pad. Patient noted to have had MRIs which showed osteomyelitis and has been treated by Dr. Clements with antibiotic treatments. Patient is a poor surgical candidate given her poor healing status and multiple comorbidities. The patient has had vascular studies on 06/30/20 showed moderate distal small vessel disease bilaterally at the digits with some non compressible vessels. Patient saw her vascular surgeon, Dr Oseguera, who did intervention on the patient on 07/21/20. Dr. Oseguera has no further interventions planned at this time. She had MRI on 06/25/20 which showed osteomyelitis to left 1st metatarsal. The patient is noted to be a prior penitentiary user of prednisone and methotrexate for her rheumatoid arthritis. These are acknowledged to be possible inhibitors to wound healing. Patient noted to have painful feet due to her rheumatoid arthritis. Patient is also noted to have had recent heart attack and has been started on blood thinners for this. On 01/19/21 cultures show anaerobic cocci and staph epi. Patient has followed up with Dr Clements with infectious disease over infection. She offloads with Plastizote accommodative inserts in her shoes but recently removed the left foot insole to allow more room for her dressing to cover her plantar wound and newer skin tear wound sites on the side and top of the foot. She is a fall risk and was previously unable to wear surgical offloading shoes or boots. She has many questions about ways to better offload. She denies fever, chills, nausea, vomiting. Progress of Wound: Improving quality plantar Improving lateral foot and dorsal foot Objective Data Objective Data Vital Signs: Vital Signs Temp Pulse Resp BP 97.5 F L 75 16 158/78 H 05/26/21 09:51 05/26/21 09:51 05/26/21 09:51 05/26/21 09:51 Oxygen Delivery Method Room Air Weight: 46.266 kg Body Mass Index (BMI) 18.6 Physical Exam Narrative Const alert and no apparent distress General Appearance: cooperative and comfortable Patient has overall frail appearance Extremity no calf tenderness, negative yasmine and baker sign No lower extremity edema General Extremity: tenderness to palpation palpable metatarsal heads. There is Significant fat pad atrophy noted with easily palpable metatarsal heads 1 through 5 bilaterally. Negative for clubbing or cyanosis or ecchymosis or erythema Vasc Peripheral Pulses: posterior tibial pulses absent and dorsalis pedis pulses present but diminished, normal capillary refill, no acute ischemic skin changes noted, cool temperature Skin General Skin Exam: dry flaky atrophic skin to entire bilateral lower extremities, absent hair growth noted; Negative for ecchymosis, eschar, pallor, rashes. Patient skin in general is in very poor condition especially since starting blood thinners. Her arms are noted to be extremely dark and discolored to her entire forearms. Wound Narrative: ulcers noted to plantar first metatarsal head left and medial forefoot left. left subfirst metatarsal head ulceration. Bone continues to be exposed and is white and healthier in appearance-stable. Less serous drainage noted. No surrounding erythema or edema. No malodor, streaking, fluctuation, crepitus. Skin is atrophic and hairless. There is a lateral fifth metatarsal head ulcer that is fibrous and dry without exposed bone or deep tissue necrosis or infection. Improvement in base quality and reduction in size Dorsal lateral left foot with skin tear and hematogenous drainage no infection is reduced in size with some progressive peripheral epithelialization and minimal exposed granulation tissue; improvement noted There is significant amount of fat pad atrophy noted to bilateral feet secondary to patient's rheumatoid arthritis. There is noted minimal callus at previous ulceration sites. Pain to palpation of plantar forefoot bilaterally resolved Right forefoot ecchymosis to all digits and forefoot with adjacent edema Neuro Gait (Neuro): heel to toe. Guarded, slow, and unsteady Sensory Exam: extremities light-touch: Intact Debridement Note Debridement Note Wound debrided: Left subfirst metatarsal head, left lateral foot, left dorsal lateral foot Wound Grade/Stage: Type of Debridement: Excisional debridement Anesthesia Used: 4% Lidocaine Solution Depth: in the subcutaneous layer Percentage of wound debrided: 100 Instrument Used: #15 blade Tissue Removed: fibrous, devitalized subcutaneous, biofilm, slough Severity: Fat Layer Exposed Amount of bleeding with debridement: Mild Bleeding Controlled with: Pressure Patient tolerated procedure: Patient tolerated procedure well Post-Debridement Measurements and Additional Note: Post-Debridement Measurements/Treatment SHAHANA - Nurse 1 - General Ulcer Assessment Start: 05/12/21 10:01 Freq: Status: Active Protocol: GEORGE Activity Type Activity Date Activity User E-Sign Co-Sign Detail Recorded Client Recorded Date Recorded By Document 05/12/21 10:04 OK [id number] 05/12/21 10:13 AK Document 05/26/21 09:51 MW [id number] 05/26/21 10:02 MW 05/12/21 05/26/21 10:04 09:51 WC - Today's Visit Information Type of service Nurse-only Follow-up Visit Visit (Physician/CODING TEAM LEAD ) Arrival Mode Ambulatory Ambulatory Transfer Assistance None None Accompanied by Patient Identification Verified (Name & Yes Yes ) Patient Requires Transmission-Based No No Precautions Safety Precautions NA Height and Weight Body Mass Index (BMI) 18.6 18.6 BMI Classification Normal Normal Vital Signs Temperature (97.8 F-99.1 F) 97.3 F L 97.5 F L Temperature Source Temporal Temporal Pulse Rate (60-100) 73 75 Pulse Location Monitor Respiratory Rate (12-18) 18 16 Respiratory rate source Observation Observation Oxygen Delivery Method Room Air Blood Pressure (90/60-120/80) 154/83 H 158/78 H Blood Pressure Mean (mm Hg) 106 104 Source Monitor Monitor Position Sitting Blood Pressure Location Left Arm History Since Last Visit- (Skip if this is Patient's initial visit) Have you changed medications since your No No last visit? Any new allergies or adverse reactions No No Had a fall/change in ADL's that may No No increase risk of falls Signs or symptoms of abuse and/or No No neglect since last visit Have you been in the hospital since your No last visit? Has dressing in place as prescribed Yes Has compression in place as prescribed Yes Experienced any changes in pain level or No management Left Footwear Regular Shoe Right Footwear Regular Shoe Pain Scale: 0-10 Numeric Is Patient Pain Free? Yes Yes SHAHANA Stevens Nurse 1 - General Ulcer Measurement Start: 05/12/21 10:01 Freq: Status: Active Protocol: Activity Type Activity Date Activity User E-Sign Co-Sign Detail Recorded Client Recorded Date Recorded By Document 05/12/21 10:04 AK [id number] 05/12/21 10:13 AK Document 05/26/21 09:51 MW [id number] 05/26/21 10:02 MW 05/12/21 05/26/21 10:04 09:51 Wound Center Nurse 1 10-left lateral foot 5th methead -Combined with other wound No -Current Size (cm) - Length 0.1 0.3 -Current Size (cm) - Width 0.1 0.3 -Current Size (cm) - Depth 0.1 0.2 -Total Square Cm 0.01 0.09 -Photo Taken No No -Epithelialization None Present -Tunneling No -Undermining/Tunneling No -Circular Undermining No -Exudate Amt None Present Small -Exudate Type Serosanguineous -Wound Margin Flat & Intact Thickened -Granulation Amt Small (1-33%) None Present (0 %) -Granulation Quality [place] N/A -Slough/Fibrin Yes -Necrosis Amt None Present (0 Large (67-100%) %) -Necrotic Tissue Type Adherent Slough -Structure Exposed N/A N/A -Texture (Анна-wound Skin Appearance) Scarring No Abnormality, Localized Edema ,Scarring -Moisture (Анна-wound Skin Appearance) No Abnormality No Abnormality, Dry/Scaly -Color (Анна-wound Skin Appearance) Erythema Assessed, Hemosiderin Staining -Temperature (Анна-wound Skin No Abnormality No Abnormality Appearance) (Pt Warm) (Pt Warm) -Tenderness on Palpation (Анна-wound No Yes Skin Appearance) -Ulcer Cleansing Soap and Water Rinsed/ Irrigated with Saline -Foul Odor after Cleansing No No -Anesthetic Used 5% Lidocaine 5% Lidocaine Gel Gel #9 LEFT MEDIAL FOOT -Combined with other wound No -Current Size (cm) - Length 0.6 0.4 -Current Size (cm) - Width 0.6 0.5 -Current Size (cm) - Depth 0.5 0.2 -Total Square Cm 0.36 0.20 -Photo Taken No No -Epithelialization None Present -Tunneling No -Undermining/Tunneling No -Maximum Distance #2 (cm) 0.2 -Circular Undermining Yes No -Exudate Amt Small -Exudate Type Purulent Serosanguineous -Wound Margin Distinct, Thickened Outline Attached -Granulation Amt None Present (0 None Present (0 %) %) -Granulation Quality N/A -Slough/Fibrin Yes -Necrosis Amt Large (67-100%) Large (67-100%) -Necrotic Tissue Type Adherent Slough Adherent Slough -Structure Exposed Bone N/A -Texture (Анна-wound Skin Appearance) Scarring Assessed, Localized Edema ,Scarring -Moisture (Анна-wound Skin Appearance) Dry/Scaly Assessed,Dry/ Scaly -Color (Анна-wound Skin Appearance) No Abnormality Assessed, Hemosiderin Staining -Temperature (Анна-wound Skin No Abnormality Appearance) (Pt Warm) -Tenderness on Palpation (Анна-wound No Skin Appearance) -Ulcer Cleansing Soap and Water -Foul Odor after Cleansing No -Anesthetic Used 5% Lidocaine Gel Lower Limb Edema Present No WC - Nurse 2 - General Ulcer CM Notes Start: 05/12/21 10:01 Freq: Status: Active Protocol: Activity Type Activity Date Activity User E-Sign Co-Sign Detail Recorded Client Recorded Date Recorded By Document 05/12/21 10:24 [id number] 05/12/21 10:27 Document 05/26/21 10:08 [id number] 05/26/21 10:12 05/12/21 05/26/21 10:24 10:08 Wound Center Nurse 2 11-left dorsal foot -Time 10:11 -Correct Patient Yes -Correct Side, Site, Position Yes -Correct Procedure Yes -Procedure Performed Yes -Type of Procedure Debridement -Clinical Debridement Epidermis / Dermis -Tissue Removed Epidermis, Dermis -Post Debridement (cm) - Length 1.8 -Post Debridement (cm) - Width 0.2 -Post Debridement (cm) - Depth 0.1 -Total Square (Post) (cm) 0.36 -Area of Debridement (cm) - Length 1.8 -Area of Debridement (cm) - Width 0.2 -Total Square (Area) (cm) 0.36 -Tunneling No -Undermining/Tunneling No -Circular Undermining No -Wound/Ulcer Outcome Not Healed -Ulcer Cleansing Rinsed/ Irrigated with Saline -Foul Odor after Cleansing No -Bioengineered Tissue No -Bleeding Controlled with Pressure -Offloading No -Treatment Response Procedure Tolerated Well -Debridement - Open, 1st 20sq cm No 10-left lateral foot 5th methead -Time 10:24 10:08 -Correct Patient Yes Yes -Correct Side, Site, Position Yes Yes -Correct Procedure Yes Yes -Procedure Performed Yes Yes -Type of Procedure Debridement Debridement -Clinical Debridement Subcutaneous Epidermis / Dermis -Tissue Removed Subcutaneous Epidermis, Dermis -Post Debridement (cm) - Length 0.5 0.4 -Post Debridement (cm) - Width 0.4 0.3 -Post Debridement (cm) - Depth 0.2 0.2 -Total Square (Post) (cm) 0.20 0.12 -Area of Debridement (cm) - Length 0.5 0.4 -Area of Debridement (cm) - Width 0.4 0.3 -Total Square (Area) (cm) 0.20 0.12 -Tunneling No No -Undermining/Tunneling No No -Circular Undermining No No -Wound/Ulcer Outcome Not Healed Not Healed -Ulcer Cleansing Rinsed/ Rinsed/ Irrigated with Irrigated with Saline Saline -Foul Odor after Cleansing No No -Bioengineered Tissue No No -Bleeding Controlled with Pressure -Offloading No No -Treatment Response Procedure Procedure Tolerated Well Tolerated Well -Debridement - Open, 1st 20sq cm Yes -Debridement - Subq, 1st 20sq cm Yes #9 LEFT MEDIAL FOOT -Time 10:25 10:08 -Correct Patient Yes Yes -Correct Side, Site, Position Yes Yes -Correct Procedure Yes Yes -Procedure Performed Yes Yes -Type of Procedure Debridement Debridement -Clinical Debridement Subcutaneous Subcutaneous -Tissue Removed Subcutaneous Subcutaneous -Post Debridement (cm) - Length 0.5 0.5 -Post Debridement (cm) - Width 0.7 0.5 -Post Debridement (cm) - Depth 0.4 0.3 -Total Square (Post) (cm) 0.35 0.25 -Area of Debridement (cm) - Length 0.5 0.5 -Area of Debridement (cm) - Width 0.7 0.5 -Total Square (Area) (cm) 0.35 0.25 -Tunneling No No -Undermining/Tunneling No No -Circular Undermining No No -Wound/Ulcer Outcome Not Healed Not Healed -Ulcer Cleansing Rinsed/ Rinsed/ Irrigated with Irrigated with Saline Saline -Foul Odor after Cleansing No No -Bioengineered Tissue No No -Bleeding Controlled with Pressure Pressure -Offloading No No -Treatment Response Procedure Procedure Tolerated Well Tolerated Well -Debridement - Subq, 1st 20sq cm No Yes Pain Scale: 0-10 Numeric Is Patient Pain Free? Yes Yes WC - Nurse 3 - General Ulcer D/C NN Start: 05/12/21 10:01 Freq: Status: Active Protocol: Activity Type Activity Date Activity User E-Sign Co-Sign Detail Recorded Client Recorded Date Recorded By Document 05/12/21 10:53 AK [id number] 05/12/21 10:54 AK Document 05/26/21 10:32 DL [id number] 05/26/21 10:33 DL 05/12/21 05/26/21 10:53 10:32 Wound Care Nurse 3 11-left dorsal foot -Ulcer Cleansing Rinsed/ Irrigated with Saline -Foul Odor after Cleansing No -Primary Dressing Applied NonAdherent Contact Layer -Other Dressing hydrogel -Primary Dressing Covered/Secured with Dry Gauze & Roll Gauze, Secured with Tape 10-left lateral foot 5th methead -Ulcer Cleansing Rinsed/ Rinsed/ Irrigated with Irrigated with Saline Saline -Foul Odor after Cleansing No No -Negative Pressure Wound Therapy N/A -Primary Dressing Applied C Hydrogel ($) NonAdherent Contact Layer -Other Dressing hydrogel -Primary Dressing Covered/Secured with Dry Gauze & Dry Gauze & Roll Gauze, Roll Gauze, Secured with Secured with Tape Tape #9 LEFT MEDIAL FOOT -Ulcer Cleansing Rinsed/ Rinsed/ Irrigated with Irrigated with Saline Saline -Foul Odor after Cleansing No No -Negative Pressure Wound Therapy N/A -Primary Dressing Applied Aquacel AG 4x4 Aquacel AG 4x4 -Primary Dressing Covered/Secured with Dry Gauze & Dry Gauze & Roll Gauze, Roll Gauze, Secured with Secured with Tape Tape -Aquacel AG 4x4 1 1 Treatment Response Procedure Tolerated Well Pain Scale: 0-10 Numeric Is Patient Pain Free? Yes WC - Visit Discharge Discharge Condition Stable Stable Ambulatory Status Ambulatory Ambulatory Transportation Private Auto Private Auto Medication Reconcilliation completed & No provided to patient/care provider Clinical Summary of Care Provided Yes Assessment/Plan Assessment/Plan (1) Rheumatoid arthritis: CODE(S): M06.9 - Rheumatoid arthritis, unspecified QUALIFIERS: Laterality: bilateral Rheumatoid arthritis location: foot Rheumatoid factor presence: unspecified presence Qualified Code(s): M06.9 - Rheumatoid arthritis, unspecified (2) Fat pad atrophy of foot: CODE(S): L90.9 - Atrophic disorder of skin, unspecified (3) Osteomyelitis, chronic, ankle or foot: CODE(S): M86.679 - Other chronic osteomyelitis, unspecified ankle and foot (4) Delayed wound healing: CODE(S): T14.8XXD - Other injury of unspecified body region, subsequent encounter (5) Steroid long-term use: (6) PAD (peripheral artery disease): CODE(S): I73.9 - Peripheral vascular disease, unspecified (7) Chronic ulcer of left foot with necrosis of bone: CODE(S): L97.524 - Non-pressure chronic ulcer of other part of left foot with necrosis of bone (8) Skin tear of left lower leg without complication: CODE(S): S81.812A - Laceration without foreign body, left lower leg, initial encounter (9) Difficulty in walking, not elsewhere classified: CODE(S): R26.2 - Difficulty in walking, not elsewhere classified PLAN: Patient seen and examined. Debridement was performed to the left foot as noted in the clinical nursing panel. She is noted to have healed all ulcerations except left sub first metatarsal head and new lateral and dorsal left foot. She continues to use the offloading inserts with significant improvement noted since beginning use however recently removed the left insole. Compliance was discussed. We discussed at length today the other more successful ways to offload wounds however she is not able to safely perform these due to her walking difficulty, balance, fall risk status. We discussed the benefits and risks of each opportunity. I advised her to bring in a pair shoes and allow me to cut a hole in the lateral and dorsal aspect of the shoe to offload those other ulcer sites. It would also be ideal if she put her offloading insole back in her shoe. She is not sure if she will able to get this done this next week. She is noted to use tubigrip. Discussed previously that the swelling may be cardiac in origin. She continues to follow-up with inspector material disposition as recommended previously. She had prior infections and was treated with infectious disease. There are no signs infection noted today. Patient was previously treated with linezolid and Flagyl per Dr. Clements. Patient cultures from 01/19/2021 demonstrated Staphylococcus epididymis and anaerobic cocci. no local signs of infection noted today. This has been completed. It is also noted that she was already treated for osteomyelitis. Discussed with patient going a more palliative wound care route with her chronic nonhealing ulcerations especially given significant comorbidities and treatment of healing with medications. She elects to return biweekly. Debridement performed as noted. Verbal consent was obtained and she tolerated this well. LEAS 06/30/20 showed moderate distal small vessel disease bilaterally at the digits. The left foot was noted to have biphasic pulses with CRUZ of 1.27 and TBI of 0.37. The left PT was noncompressible. The right foot PT and DP were noncompressible and TBI of 0.4 with triphasic and biphasic pulses. Patient had procedure with Dr Oseguera 07/21/20. Patient reports that the procedure went well. Dr. Oseguera has no further interventions planned at this time. The etiology of her ulcers appears to be from pressure at sites of metatarsal heads as there is significant fat pad atrophy. Discussed with the patient the importance of proper shoe gear with good padding to supplement lost fat pad. This is most likely due to her rheumatoid arthritis, chronic prednisone treatment may also have a role in the nonhealing of the ulcers. Patient has been using offloaded diabetic shoe inserts that she paid for [id number] and picked up from the office last week. Discussed importance of non-smoking, blood sugar control, weight management, offloading, proper nutrition, and hygiene to optimize healing potential. Discussed that her chronic steroid use for her RA can impact wound healing as well as impact her body's ability to mount an immune response. We discussed the option of transitioning her back to her medications under the management of her student services rep. I do not think this would benefit her wound healing progression however she understands if she is having flareups and needs to return to the medication that is okay to proceed forward with more of a palliative type wound care plan. Her note will be faxed to [facility] rheumatology. Discussed the importance of proper nutrition including getting enough protein in her diet to help with healing. Bone biopsy 01/05/2021 results of the first metatarsal head on the left foot confirm diagnosis of osteomyelitis infection. Previously obtained MRI also showed osteomyelitis. Patient has undergone multiple rounds of antibiotic treatments per Dr. Clements in infectious disease for this. Surgical treatment options were also discussed with patient but it was decided that it was not worth the risk of potentially creating a larger wound that potentially more bacteria could then get into to infect the wound. Patient is a poor surgical candidate. Updated left foot x-ray ordered. Updated left foot x-ray did not demonstrate any progressive osseous destruction soft tissue emphysema or foreign body. She also has decreased bone density noted on this foot. Patient saw Dr. Steinberg for HBO evaluation. This was given prior to patient's recent heart attack and hospital admission. Patient will need to get cardiac clearance prior to being approved for HBO. This was not given at this time. We will potentially reconsider HBO therapy in the future if ever given cardiac clearance. We will hold off on this due to her recent fatigue. Encouraged protein rich diet and protein supplements. Discussed Vick supplementation. Patient is overall frail appearance with muscle atrophy noted. All questions answered. She is stable and will follow up in 2 weeks. Dressings: Continue wound care to foot ulcerations daily. To use Aquacel silver to subfirst metatarsal head ulcer site and hydrogel to other ulcers. To moisturize the legs and feet daily. Patient was given Tubigrip's for compression and edema control. To pad and protect abrasion and preulcerative area This note was generated with [employer] dictation software. It may contain incorrect words, spelling, and punctuation that were not noted in checking the note before signing. 20 minutes was spent on this encounter. This included face to face and non face to face care including preparing for the visit, reviewing the history, performing the exam, counseling and providing education to the patient, family, or caregiver, ordering medications/test/ procedures if indicated as documented, communicating with other healthcare providers, documenting information in the medical record, interpreting / sharing this information when indicated as documented, and care coordination.
== END 2021-06-07 23:59 ==
LOC: WC 10:00
PROVIDERS: PCP Physician Assistant; Visit Provider Podiatrist
DX: S81.812A Laceration without foreign body, left lower leg, initial encounter (principal); L97.524 Non-pressure chronic ulcer of other part of left foot with necrosis of bone; M06.9 Rheumatoid arthritis, unspecified; M86.679 Other chronic osteomyelitis, unspecified ankle and foot; I73.9 Peripheral vascular disease, unspecified; R26.2 Difficulty in walking, not elsewhere classified; L90.9 Atrophic disorder of skin, unspecified; Z79.52 Long term (current) use of systemic steroids; T14.8XXD Other injury of unspecified body region, subsequent encounter
CPT/HCPCS: 11042; 97597

== ENCOUNTER 2021-05-27 12:48 | Outpatient (CLI) | payer MEDICARE, SELFPAY ==
--- NOTE | 2021-05-27 12:54 | ART_ITS ---
Reason For Study: Stricture of artery Procedure A bilateral lower extremity continuous wave Doppler with analog waveform analysis and ankle brachial indexes. Left Segmental Pressures Left brachial= 175mmHg. Left posterior tibial artery = >254mmHg. Left dorsalis pedis artery = >254mmHg. Left digit = 44 mmHg. The left dorsalis pedis waveforms are biphasic. The left posterior tibial artery waveforms are biphasic. Right Segmental Pressures Right brachial= 170mmHg. Right posterior tibial artery = >254mmHg. Right dorsalis pedis artery = >254mmHg. Right digit = 73 mmHg. The right dorsalis pedis waveforms are biphasic. The right posterior tibial artery waveforms are biphasic. Indices The right ankle brachial index by the dorsalis pedis is NC. The right ankle brachial index by the posterior tibial artery is NC. The right digital-brachial index is 0.42. The left ankle brachial index by the dorsalis pedis is NC. The left ankle brachial index by the posterior tibial artery is NC. The left digital-brachial index is 0.25. VL/Ankle Brachial Index Interpretation Summary Bilateral noncompressibility noted at the ankle consistent with medial calcinos is. Appears adequate waveforms with bilateral biphasic flow noted. Digit brachial index with small v essel disease at 0.42 and 0.25. Ordering Physician: Bruno Oseguera Referring Physician: Tracey Thomas Performed By: Yolande Melara RVT
== END 2021-05-27 23:59 | disposition short-term general hospital (02) ==
LOC: CVS 12:51
PROVIDERS: PCP Physician Assistant; Referring Provider Surgery Vascular Surgery; Visit Provider Surgery Vascular Surgery
DX: I70.213 Atherosclerosis of native arteries of extremities with intermittent claudication, bilateral legs (principal); I77.1 Stricture of artery
CPT/HCPCS: 93922

== ENCOUNTER 2021-06-23 09:15 | Outpatient (RCR) | payer MEDICARE, SELFPAY ==
[2021-06-08 00:29] VITALS: BP 158/78; PULSE 75; RESP 16; TEMP 36.4; BMI 18.6
[2021-06-09 09:28] VITALS: BP 171/86; PULSE 71; RESP 18; TEMP 36.4; BMI 18.6
--- NOTE | 2021-06-09 10:57 | PN.PCM_ITS ---
History of Present Illness Date of Service: 06/09/21 Chief Complaint: Left 1st metatarsal ulceration with chronic refractory os teomyelitis of the left first metatarsal. left foot ulcer left foot skin tear History of Wound: Kylah is a 76-year-old female who was referred here for treatment bilateral feet ulcerations. Patient is noted to have significant fat pad atrophy likely secondary to her rheumatoid arthritis. Patient is on multiple medications for her rheumatoid arthritis which are impeding her wound healing. Patient is also prone to breakdown given lack of fat pad. Patient noted to have had MRIs which showed osteomyelitis and has been treated by Dr. Clements with antibiotic treatments. Patient is a poor surgical candidate given her poor healing status and multiple comorbidities. The patient has had vascular studies on 06/30/20 showed moderate distal small vessel disease bilaterally at the digits with some non compressible vessels. Patient saw her vascular surgeon, Dr. Oseguera, who did intervention on the patient on 07/21/20. Dr. Oseguera has no further interventions planned at this time. She had MRI on 06/25/20 which showed osteomyelitis to left 1st metatarsal. The patient is noted to be a prior prison user of prednisone and methotrexate for her rheumatoid arthritis. These are acknowledged to be possible inhibitors to wound healing. Patient noted to have painful feet due to her rheumatoid arthritis. Patient is also noted to have had recent heart attack and has been started on blood thinners for this. She offloads with Plastizote accommodative inserts in her shoes and slippers at home. She is a fall risk and was previously unable to wear surgical offloading shoes or boots. She brought some old shoes today to allow additional offloading by cutting a hole in the side of the shoe as previously offered. She denies fever, chills, nausea, vomiting. Objective Data Objective Data Vital Signs: Vital Signs Temp Pulse Resp BP 97.6 F L 71 18 171/86 H 06/09/21 09:28 06/09/21 09:28 06/09/21 09:28 06/09/21 09:28 Weight: 46.266 kg Body Mass Index (BMI) 18.6 Physical Exam Narrative Const alert and no apparent distress General Appearance: cooperative and comfortable Patient has overall frail appearance Extremity no calf tenderness, negative yasmine and baker sign No lower extremity edema General Extremity: tenderness to palpation palpable metatarsal heads. There is Significant fat pad atrophy noted with easily palpable metatarsal heads 1 through 5 bilaterally. Negative for clubbing or cyanosis or ecchymosis or er ythema Vasc Peripheral Pulses: posterior tibial pulses absent and dorsalis pedis pulses present but diminished, normal capillary refill, no acute ischemic skin changes noted, cool temperature Skin General Skin Exam: dry flaky atrophic skin to entire bilateral lower extremities, absent hair growth noted; Negative for ecchymosis, eschar, pallor, rashes. Patient skin in general is in very poor condition especially since starting blood thinners. Her arms are noted to be extremely dark and discolored to her entire forearms. Wound Narrative: ulcers noted to plantar first metatarsal head left and medial forefoot left. left subfirst metatarsal head ulceration. Bone continues to be exposed and is white and healthier in appearance-stable. Less serous drainage noted. No surrounding erythema or edema. No malodor, streaking, fluctuation, crepitus. Skin is atrophic and hairless. There is a lateral fifth metatarsal head ulcer that is fibrous and dry without exposed bone or deep tissue necrosis or infection. Improvement in base quality and reduction in size Dorsal lateral left foot with skin tear healed with full epithelialization There is significant amount of fat pad atrophy noted to bilateral feet secondary to patient's rheumatoid arthritis. There is noted minimal callus at previous ulceration sites. Pain to palpation of plantar forefoot bilaterally Neuro: Gait (Neuro): heel to toe. Guarded, slow, and unsteady Sensory Exam: extremities light-touch: Intact Debridement Note Debridement Note Wound debrided: left lateral forefoot and sub 1st metatarsal head Wound Grade/Stage: Type of Debridement: Excisional debridement Anesthesia Used: 4% Lidocaine Solution Depth: in the subcutaneous layer Percentage of wound debrided: 100 Instrument Used: #15 blade Tissue Removed: fibrous, devitalized subcutaneous, biofilm, slough Severity: Fat Layer Exposed Amount of bleeding with debridement: Mild Bleeding Controlled with: Pressure Patient tolerated procedure: Patient tolerated procedure well Post-Debridement Measurements and Additional Note: Post-Debridement Measurements/Treatment WC - Nurse 1 - General Ulcer Assessment Start: 06/09/21 09:28 Freq: Status: Active Protocol: [email or web address].LOWEXT Activity Type Activity Date Activity User E-Sign Co-Sign Detail Recorded Client Recorded Date Recorded By Document 06/09/21 09:28 DL [id number] 06/09/21 09:40 DL 06/09/21 09:28 WC - Today's Visit Information Type of service Follow-up Visit (Physician/SOFTWARE CONTROLS ENGINEER ) Arrival Mode Ambulatory Transfer Assistance None Patient Identification Verified (Name & Yes ) Height and Weight Body Mass Index (BMI) 18.6 BMI Classification Normal Vital Signs Temperature (97.8 F-99.1 F) 97.6 F L Temperature Source Temporal Pulse Rate (60-100) 71 Pulse Location Monitor Respiratory Rate (12-18) 18 Respiratory rate source Observation Blood Pressure (90/60-120/80) 171/86 H Blood Pressure Mean (mm Hg) 114 History Since Last Visit- (Skip if this is Patient's initial visit) Have you changed medications since your No last visit? Any new allergies or adverse reactions No Had a fall/change in ADL's that may No increase risk of falls Signs or symptoms of abuse and/or No neglect since last visit Have you been in the hospital since your No last visit? Has dressing in place as prescribed Yes Has compression in place as prescribed N/A Has offloadiing in place as prescribed Yes Experienced any changes in pain level or No management Left Footwear Custom Shoe Right Footwear Custom Shoe Pain Scale: 0-10 Numeric Is Patient Pain Free? Yes - Nurse 1 - General Ulcer Measurement Start: 06/09/21 09:28 Freq: Status: Active Protocol: Activity Type Activity Date Activity User E-Sign Co-Sign Detail Recorded Client Recorded Date Recorded By Document 06/09/21 09:28 DL [id number] 06/09/21 09:40 DL 06/09/21 09:28 Wound Center Nurse 1 11-left dorsal foot -Current Size (cm) - Length 0 -Current Size (cm) - Width 0 -Current Size (cm) - Depth 0 -Total Square Cm 0 -Photo Taken Yes -Exudate Amt None Present -Wound Margin Flat & Intact -Granulation Amt Large (67-100%) -Granulation Quality [place] -Necrotic Tissue Type Adherent Slough -Structure Exposed N/A -Texture (Анна-wound Skin Appearance) Localized Edema ,Scarring -Moisture (Анна-wound Skin Appearance) No Abnormality -Color (Анна-wound Skin Appearance) Hemosiderin Staining -Temperature (Анна-wound Skin No Abnormality Appearance) (Pt Warm) -Tenderness on Palpation (Анна-wound No Skin Appearance) -Ulcer Cleansing Rinsed/ Irrigated with Saline -Foul Odor after Cleansing No 10-left lateral foot 5th methead -Current Size (cm) - Length 0.3 -Current Size (cm) - Width 0.3 -Current Size (cm) - Depth 0.1 -Total Square Cm 0.09 -Photo Taken Yes -Exudate Amt None Present -Wound Margin Distinct, Outline Attached -Granulation Amt Large (67-100%) -Granulation Quality Pale -Necrosis Amt Small (1-33%) -Necrotic Tissue Type Adherent Slough -Structure Exposed N/A -Texture (Анна-wound Skin Appearance) Scarring -Moisture (Анна-wound Skin Appearance) No Abnormality -Color (Анна-wound Skin Appearance) Erythema -Temperature (Анна-wound Skin No Abnormality Appearance) (Pt Warm) -Tenderness on Palpation (Анна-wound No Skin Appearance) -Ulcer Cleansing Rinsed/ Irrigated with Saline -Foul Odor after Cleansing No -Anesthetic Used 4% Lidocaine Solution #9 LEFT MEDIAL FOOT -Current Size (cm) - Length 0.6 -Current Size (cm) - Width 0.8 -Current Size (cm) - Depth 0.1 -Total Square Cm 0.48 -Photo Taken Yes -Exudate Amt Medium -Exudate Type Purulent -Wound Margin Distinct, Outline Attached -Granulation Amt None Present (0 %) -Necrosis Amt Large (67-100%) -Necrotic Tissue Type Adherent Slough -Structure Exposed Bone -Texture (Анна-wound Skin Appearance) Scarring -Moisture (Анна-wound Skin Appearance) Dry/Scaly -Color (Анна-wound Skin Appearance) Hemosiderin Staining -Temperature (Анна-wound Skin No Abnormality Appearance) (Pt Warm) -Ulcer Cleansing Rinsed/ Irrigated with Saline -Foul Odor after Cleansing No -Anesthetic Used 4% Lidocaine Solution WC - Nurse 2 - General Ulcer CM Notes Start: 06/09/21 09:28 Freq: Status: Active Protocol: Activity Type Activity Date Activity User E-Sign Co-Sign Detail Recorded Client Recorded Date Recorded By Document 06/09/21 09:49 REJI [id number] 06/09/21 09:54 REJI 06/09/21 09:49 Wound Center Nurse 2 11-left dorsal foot -Correct Patient No -Correct Side, Site, Position No -Correct Procedure No -Procedure Performed No -Post Debridement (cm) - Length 0 -Post Debridement (cm) - Width 0 -Post Debridement (cm) - Depth 0 -Total Square (Post) (cm) 0 -Area of Debridement (cm) - Length 0 -Area of Debridement (cm) - Width 0 -Total Square (Area) (cm) 0 -Wound/Ulcer Outcome Healed- Epithelialized 10-left lateral foot 5th methead -Time 09:52 -Correct Patient Yes -Correct Side, Site, Position Yes -Correct Procedure Yes -Procedure Performed Yes -Type of Procedure Debridement -Clinical Debridement Subcutaneous -Tissue Removed Subcutaneous -Post Debridement (cm) - Length 0.3 -Post Debridement (cm) - Width 0.3 -Post Debridement (cm) - Depth 0.2 -Total Square (Post) (cm) 0.09 -Area of Debridement (cm) - Length 0.3 -Area of Debridement (cm) - Width 0.3 -Total Square (Area) (cm) 0.09 -Tunneling No -Undermining/Tunneling No -Circular Undermining No -Wound/Ulcer Outcome Not Healed -Ulcer Cleansing Rinsed/ Irrigated with Saline -Foul Odor after Cleansing No -Bioengineered Tissue No -Bleeding Controlled with Pressure -Offloading No -Treatment Response Procedure Tolerated Well -Debridement - Subq, 1st 20sq cm No #9 LEFT MEDIAL FOOT -Time 09:52 -Correct Patient Yes -Correct Side, Site, Position Yes -Correct Procedure Yes -Procedure Performed Yes -Type of Procedure Debridement -Clinical Debridement Subcutaneous -Tissue Removed Subcutaneous -Post Debridement (cm) - Length 0.6 -Post Debridement (cm) - Width 0.8 -Post Debridement (cm) - Depth 0.3 -Total Square (Post) (cm) 0.48 -Area of Debridement (cm) - Length 0.6 -Area of Debridement (cm) - Width 0.8 -Total Square (Area) (cm) 0.48 -Tunneling No -Undermining/Tunneling No -Circular Undermining No -Wound/Ulcer Outcome Not Healed -Ulcer Cleansing Rinsed/ Irrigated with Saline -Foul Odor after Cleansing No -Bioengineered Tissue No -Bleeding Controlled with Pressure -Offloading No -Treatment Response Procedure Tolerated Well -Debridement - Subq, 1st 20sq cm Yes Pain Scale: 0-10 Numeric Is Patient Pain Free? Yes WC - Nurse 3 - General Ulcer D/C NN Start: 06/09/21 09:28 Freq: Status: Active Protocol: Activity Type Activity Date Activity User E-Sign Co-Sign Detail Recorded Client Recorded Date Recorded By Document 06/09/21 10:09 HANNAH [id number] 06/09/21 10:10 HANNAH 06/09/21 10:09 Wound Care Nurse 3 10-left lateral foot 5th methead -Primary Dressing Applied NonAdherent Contact Layer -Other Dressing hydrogel -Primary Dressing Covered/Secured with Dry Gauze,Dry Gauze & Roll Gauze,Secured with Tape #9 LEFT MEDIAL FOOT -Primary Dressing Applied Aquacel AG 4x4 -Primary Dressing Covered/Secured with Dry Gauze,Dry Gauze & Roll Gauze,Secured with Tape -Aquacel AG 4x4 1 Treatment Response Procedure Tolerated Well Pain Scale: 0-10 Numeric Is Patient Pain Free? Yes WC - Visit Discharge Discharge Condition Stable Ambulatory Status Ambulatory Transportation Private Auto Medication Reconcilliation completed & No provided to patient/care provider Clinical Summary of Care Provided Yes Assessment/Plan Assessment/Plan (1) Rheumatoid arthritis: CODE(S): M06.9 - Rheumatoid arthritis, unspecified QUALIFIERS: Rheumatoid arthritis location: foot Rheumatoid factor presence: unspecified presence Laterality: bilateral Qualified Code(s): M06.9 - Rheumatoid arthritis, unspecified (2) Fat pad atrophy of foot: CODE(S): L90.9 - Atrophic disorder of skin, unspecified (3) Osteomyelitis, chronic, ankle or foot: CODE(S): M86.679 - Other chronic osteomyelitis, unspecified ankle and foot (4) Delayed wound healing: CODE(S): T14.8XXD - Other injury of unspecified body region, subsequent encounter (5) Steroid long-term use: (6) PAD (peripheral artery disease): CODE(S): I73.9 - Peripheral vascular disease, unspecified (7) Chronic ulcer of left foot with necrosis of bone: CODE(S): L97.524 - Non-pressure chronic ulcer of other part of left foot with necrosis of bone (8) Skin tear of left lower leg without complication: CODE(S): S81.812A - Laceration without foreign body, left lower leg, initial encounter (9) Difficulty in walking, not elsewhere classified: CODE(S): R26.2 - Difficulty in walking, not elsewhere classified (10) Non-pressure chronic ulcer of other part of left foot with fat layer exposed: CODE(S): L97.522 - Non-pressure chronic ulcer of other part of left foot with fat layer exposed PLAN: Patient seen and examined. Debridement was performed to the left foot as noted in the clinical nursing panel. She is noted to have healed all ulcerations except left sub first metatarsal head and new lateral and dorsal left foot. She continues to use the offloading inserts with significant improvement noted since beginning use however recently removed the left insole. Compliance was discussed. We discussed at length today the other more successful ways to offload wounds however she is not able to safely perform these due to her walking difficulty, balance, fall risk status. We discussed the benefits and risks of each opportunity. I advised her to bring in a pair shoes and allow me to cut a hole in the lateral and dorsal aspect of the shoe to offload those other ulcer sites. This was updated today to lateral forefoot area. It would also be ideal if she put her offloading insole back in her shoe. She is noted to use tubigrip. Discussed previously that the swelling may be cardiac in origin. She continues to follow-up with stereotyper helper as recommended previously. She had prior infections and was treated with infectious disease. There are no signs infection noted today. Patient was previously treated with linezolid and Flagyl per Dr. Clements. Patient cultures from 01/19/2021 demonstrated Staphylococcus epididymis and anaerobic cocci. no local signs of infection noted today. This has been completed. It is also noted that she was already treated for osteomyelitis. Discussed with patient going a more palliative wound care route with her chronic nonhealing ulcerations especially given significant comorbidities and treatment of healing with medications. She elects to return biweekly. Debridement performed as noted. Verbal consent was obtained and she tolerated this well. LEAS 06/30/20 showed moderate distal small vessel disease bilaterally at the digits. The left foot was noted to have biphasic pulses with CRUZ of 1.27 and TBI of 0.37. The left PT was noncompressible. The right foot PT and DP were noncompressible and TBI of 0.4 with triphasic and biphasic pulses. Patient had procedure with Dr Oseguera 07/21/20. Patient reports that the procedure went well. Dr. Oseguera has no further interventions planned at this time. The etiology of her ulcers appears to be from pressure at sites of metatarsal heads as there is significant fat pad atrophy. Discussed with the patient the importance of proper shoe gear with good padding to supplement lost fat pad. This is most likely due to her rheumatoid arthritis, chronic prednisone treatment may also have a role in the nonhealing of the ulcers. Patient has been using offloaded diabetic shoe inserts that she paid for [id number] and picked up from the office last week. Discussed importance of non-smoking, blood sugar control, weight management, offloading, proper nutrition, and hygiene to optimize healing potential. Discussed that her chronic steroid use for her RA can impact wound healing as well as impact her body's ability to mount an immune response. We discussed the option of transitioning her back to her medications under the management of her race relations professor. I do not think this would benefit her wound healing progression however she understands if she is having flareups and needs to return to the medication that is okay to proceed forward with more of a palliative type wound care plan. Her note will be faxed to [facility] rheumatology. She sees Dr. Tovar. Her tentative plan is to progress back to methotrexate so she can stop her prednisone. Recent medical records reviewed. Discussed the importance of proper nutrition including getting enough protein in her diet to help with healing. Bone biopsy 01/05/2021 results of the first metatarsal head on the left foot confirm diagnosis of osteomyelitis infection. Previously obtained MRI also showed osteomyelitis. Patient has undergone multiple rounds of antibiotic treatments per Dr. Clements in infectious disease for this. Surgical treatment options were also discussed with patient but it was decided that it was not worth the risk of potentially creating a larger wound that potentially more bacteria could then get into to infect the wound. Patient is a poor surgical candidate. Updated left foot x-ray ordered. Updated left foot x-ray did not demonstrate any progressive osseous destruction soft tissue emphysema or foreign body. She also has decreased bone density noted on this foot. Patient saw Dr. Steinberg for HBO evaluation. This was given prior to patient's recent heart attack and hospital admission. Patient will need to get cardiac clearance prior to being approved for HBO. This was not given at this time. We will potentially reconsider HBO therapy in the future if ever given cardiac clearance. We will hold off on this due to her recent fatigue. Encouraged protein rich diet and protein supplements. Discussed Vick supplementation. Patient is overall frail appearance with muscle atrophy noted. All questions answered. She is stable and will follow up in 2 weeks. Dressings: Continue wound care to foot ulcerations daily. To use Aquacel silver to subfirst metatarsal head ulcer site and hydrogel to other ulcers. To moisturize the legs and feet daily. Patient was given Tubigrip's for compression and edema control. To pad and protect abrasion and preulcerative area This note was generated with [employer] dictation software. It may contain incorrect words, spelling, and punctuation that were not noted in checking the note before signing. 13 minutes was spent on this encounter. This included face to face and non face to face care including preparing for the visit, reviewing the history, perfor diaz the exam, counseling and providing education to the patient, family, or caregiver, ordering medications/test/ procedures if indicated as documented, communicating with other healthcare providers, documenting information in the medical record, interpreting / sharing this information when indicated as documented, and care coordination.
[2021-06-23 09:20] VITALS: BP 154/85; PULSE 80; RESP 18; TEMP 36.4; BMI 18.6
--- NOTE | 2021-06-23 10:21 | PN.PCM_ITS ---
History of Present Illness Date of Service: 06/23/21 Chief Complaint: Left 1st metatarsal ulceration with chronic refractory os teomyelitis of the left first metatarsal. left foot ulcer left foot skin tear History of Wound: Kylah is a 76-year-old female who was referred here for treatment bilateral feet ulcerations. Patient is noted to have significant fat pad atrophy likely secondary to her rheumatoid arthritis. Patient is on multiple medications for her rheumatoid arthritis which are impeding her wound healing. Patient is also prone to breakdown given lack of fat pad. Patient noted to have had MRIs which showed osteomyelitis and has been treated by Dr. Clements with antibiotic treatments. Patient is a poor surgical candidate given her poor healing status and multiple comorbidities. The patient has had vascular studies on 06/30/20 showed moderate distal small vessel disease bilaterally at the digits with some non compressible vessels. Patient saw her vascular surgeon, Dr. Oseguera, who did intervention on the patient on 07/21/20. Dr. Oseguera has no further interventions planned at this time. She had MRI on 06/25/20 which showed osteomyelitis to left 1st metatarsal. The patient is noted to be a prior fpc user of prednisone and methotrexate for her rheumatoid arthritis. These are acknowledged to be possible inhibitors to wound healing. Patient noted to have painful feet due to her rheumatoid arthritis. Patient is also noted to have had recent heart attack and has been started on blood thinners for this. She offloads with Plastizote accommodative inserts in her shoes and slippers at home. She is a fall risk and was previously unable to wear surgical offloading shoes or boots. He also put a hole in the side of her left shoe to offload her ulcer site and she reports that this went well after she increased the size of the hole on her own at home this past week. She denies fever, chills, nausea, vomiting. Progress of Wound: Stable Objective Data Objective Data Vital Signs: Vital Signs Temp Pulse Resp BP 97.5 F L 80 18 154/85 H 06/23/21 09:20 06/23/21 09:20 06/23/21 09:20 06/23/21 09:20 Weight: 46.266 kg Body Mass Index (BMI) 18.6 Physical Exam Narrative Const alert and no apparent distress General Appearance: cooperative and comfortable Patient has overall frail appearance Extremity no calf tenderness, negative yasmine and baker sign No lower extremity edema General Extremity: tenderness to palpation palpable metatarsal heads. There is Significant fat pad atrophy noted with easily palpable metatarsal heads 1 through 5 bilaterally. Negative for clubbing or cyanosis or ecchymosis or erythema Vasc Peripheral Pulses: posterior tibial pulses absent and dorsalis pedis pulses present but diminished, normal capillary refill, no acute ischemic skin changes noted, cool temperature Skin General Skin Exam: dry flaky atrophic skin to entire bilateral lower extremities, absent hair growth noted; Negative for ecchymosis, eschar, pallor, rashes. Patient skin in general is in very poor condition especially since starting blood thinners. Her arms are noted to be extremely dark and discolored to her entire forearms. Wound Narrative: ulcers noted to plantar first metatarsal head left and lateral forefoot left. left subfirst metatarsal head ulceration. Bone continues to be exposed and is white and healthier in appearance-stable. Less serous drainage noted. No surrounding erythema or edema. No malodor, streaking, fluctuation, crepitus. Skin is atrophic and hairless. There is a lateral fifth metatarsal head ulcer that is fibrous and dry with exposed bone and without deep tissue necrosis or infection. There is significant amount of fat pad atrophy noted to bilateral feet secondary to patient's rheumatoid arthritis. There is noted minimal callus at previous ulceration sites. Pain to palpation of plantar forefoot bilaterally Neuro: Gait (Neuro): heel to toe. Guarded, slow, and unsteady Sensory Exam: extremities light-touch: Intact Debridement Note Debridement Note Wound debrided: left sub 1st metatarsal head and lateral fifth metatarsal head Wound Grade/Stage: Type of Debridement: Excisional debridement Anesthesia Used: 4% Lidocaine Solution Depth: in the subcutaneous layer Percentage of wound debrided: 100 Instrument Used: #15 blade Tissue Removed: fibrous, devitalized subcutaneous, biofilm, slough Severity: Fat Layer Exposed Amount of bleeding with debridement: Mild Bleeding Controlled with: Pressure Patient tolerated procedure: Patient tolerated procedure well Post-Debridement Measurements and Additional Note: Post-Debridement Measurements/Treatment WC - Nurse 1 - General Ulcer Assessment Start: 06/09/21 09:28 Freq: Status: Active Protocol: SHAHANA.FARTUNT Activity Type Activity Date Activity User E-Sign Co-Sign Detail Recorded Client Recorded Date Recorded By Document 06/09/21 09:28 TARI [id number] 06/09/21 09:40 DL Document 06/23/21 09:20 DL [id number] 06/23/21 09:28 DL 06/09/21 06/23/21 09:28 09:20 - Today's Visit Information Type of service Follow-up Visit Follow-up Visit (Physician/STEAMFITTER APPRENTICE (Physician/STEAMFITTER APPRENTICE ) ) Arrival Mode Ambulatory Wheelchair Transfer Assistance None Manual Transfer Assist (Other) x1 Patient Identification Verified (Name & Yes Yes ) Patient Requires Transmission-Based No Precautions Height and Weight Body Mass Index (BMI) 18.6 18.6 BMI Classification Normal Normal Vital Signs Temperature (97.8 F-99.1 F) 97.6 F L 97.5 F L Temperature Source Temporal Temporal Pulse Rate (60-100) 71 80 Pulse Location Monitor Monitor Respiratory Rate (12-18) 18 18 Respiratory rate source Observation Observation Blood Pressure (90/60-120/80) 171/86 H 154/85 H Blood Pressure Mean (mm Hg) 114 108 Source Monitor History Since Last Visit- (Skip if this is Patient's initial visit) Have you changed medications since your No No last visit? Any new allergies or adverse reactions No No Had a fall/change in ADL's that may No No increase risk of falls Signs or symptoms of abuse and/or No No neglect since last visit Have you been in the hospital since your No No last visit? Has dressing in place as prescribed Yes Yes Has compression in place as prescribed N/A N/A Has offloadiing in place as prescribed Yes Experienced any changes in pain level or No No management Left Footwear Custom Shoe Custom Shoe Right Footwear Custom Shoe Regular Shoe Pain Scale: 0-10 Numeric Is Patient Pain Free? Yes Yes - Nurse 1 - General Ulcer Measurement Start: 06/09/21 09:28 Freq: Status: Active Protocol: Activity Type Activity Date Activity User E-Sign Co-Sign Detail Recorded Client Recorded Date Recorded By Document 06/09/21 09:28 DL [id number] 06/09/21 09:40 DL Document 06/23/21 09:20 DL [id number] 06/23/21 09:28 DL 06/09/21 06/23/21 09:28 09:20 Wound Center Nurse 1 11-left dorsal foot -Current Size (cm) - Length 0 -Current Size (cm) - Width 0 -Current Size (cm) - Depth 0 -Total Square Cm 0 -Photo Taken Yes -Exudate Amt None Present -Wound Margin Flat & Intact -Granulation Amt Large (67-100%) -Granulation Quality [place] -Necrotic Tissue Type Adherent Slough -Structure Exposed N/A -Texture (Анна-wound Skin Appearance) Localized Edema ,Scarring -Moisture (Анна-wound Skin Appearance) No Abnormality -Color (Анна-wound Skin Appearance) Hemosiderin Staining -Temperature (Анна-wound Skin No Abnormality Appearance) (Pt Warm) -Tenderness on Palpation (Анна-wound No Skin Appearance) -Ulcer Cleansing Rinsed/ Irrigated with Saline -Foul Odor after Cleansing No 10-left lateral foot 5th methead -Current Size (cm) - Length 0.3 0.2 -Current Size (cm) - Width 0.3 0.3 -Current Size (cm) - Depth 0.1 0.2 -Total Square Cm 0.09 0.06 -Photo Taken Yes No -Exudate Amt None Present Small -Wound Margin Distinct, Distinct, Outline Outline Attached Attached -Granulation Amt Large (67-100%) Small (1-33%) -Granulation Quality Pale [place] -Necrosis Amt Small (1-33%) None Present (0 %) -Necrotic Tissue Type Adherent Slough -Structure Exposed N/A N/A -Texture (Анна-wound Skin Appearance) Scarring Scarring -Moisture (Анна-wound Skin Appearance) No Abnormality No Abnormality -Color (Анна-wound Skin Appearance) Erythema Erythema,Rubor -Temperature (Анна-wound Skin No Abnormality No Abnormality Appearance) (Pt Warm) (Pt Warm) -Tenderness on Palpation (Анна-wound No No Skin Appearance) -Ulcer Cleansing Rinsed/ Soap and Water Irrigated with Saline -Foul Odor after Cleansing No Yes, Due to Product Use -Anesthetic Used 4% Lidocaine 5% Lidocaine Solution Gel #9 LEFT MEDIAL FOOT -Current Size (cm) - Length 0.6 0.7 -Current Size (cm) - Width 0.8 0.7 -Current Size (cm) - Depth 0.1 0.4 -Total Square Cm 0.48 0.49 -Photo Taken Yes No -Exudate Amt Medium Small -Exudate Type Purulent Yellow/Green -Wound Margin Distinct, Distinct, Outline Outline Attached Attached -Granulation Amt None Present (0 Small (1-33%) %) -Granulation Quality [place] -Necrosis Amt Large (67-100%) Small (1-33%) -Necrotic Tissue Type Adherent Slough Adherent Slough -Structure Exposed Bone Bone -Texture (Анна-wound Skin Appearance) Scarring Localized Edema ,Scarring -Moisture (Анна-wound Skin Appearance) Dry/Scaly No Abnormality -Color (Анна-wound Skin Appearance) Hemosiderin Rubor Staining -Temperature (Анна-wound Skin No Abnormality No Abnormality Appearance) (Pt Warm) (Pt Warm) -Tenderness on Palpation (Анна-wound No Skin Appearance) -Ulcer Cleansing Rinsed/ Soap and Water Irrigated with Saline -Foul Odor after Cleansing No No -Anesthetic Used 4% Lidocaine 5% Lidocaine Solution Gel WC - Nurse 2 - General Ulcer CM Notes Start: 06/09/21 09:28 Freq: Status: Active Protocol: Activity Type Activity Date Activity User E-Sign Co-Sign Detail Recorded Client Recorded Date Recorded By Document 06/09/21 09:49 [id number] 06/09/21 09:54 Document 06/23/21 09:35 [id number] 06/23/21 09:39 06/09/21 06/23/21 09:49 09:35 Wound Center Nurse 2 11-left dorsal foot -Correct Patient No -Correct Side, Site, Position No -Correct Procedure No -Procedure Performed No -Post Debridement (cm) - Length 0 -Post Debridement (cm) - Width 0 -Post Debridement (cm) - Depth 0 -Total Square (Post) (cm) 0 -Area of Debridement (cm) - Length 0 -Area of Debridement (cm) - Width 0 -Total Square (Area) (cm) 0 -Wound/Ulcer Outcome Healed- Epithelialized 10-left lateral foot 5th methead -Time 09:52 09:36 -Correct Patient Yes Yes -Correct Side, Site, Position Yes Yes -Correct Procedure Yes Yes -Procedure Performed Yes Yes -Type of Procedure Debridement Debridement -Clinical Debridement Subcutaneous Subcutaneous -Tissue Removed Subcutaneous Subcutaneous -Post Debridement (cm) - Length 0.3 0.2 -Post Debridement (cm) - Width 0.3 0.2 -Post Debridement (cm) - Depth 0.2 0.1 -Total Square (Post) (cm) 0.09 0.04 -Area of Debridement (cm) - Length 0.3 0.2 -Area of Debridement (cm) - Width 0.3 0.2 -Total Square (Area) (cm) 0.09 0.04 -Tunneling No No -Undermining/Tunneling No No -Circular Undermining No No -Wound/Ulcer Outcome Not Healed Not Healed -Ulcer Cleansing Rinsed/ Rinsed/ Irrigated with Irrigated with Saline Saline -Foul Odor after Cleansing No No -Bioengineered Tissue No No -Bleeding Controlled with Pressure Pressure -Offloading No No -Treatment Response Procedure Procedure Tolerated Well Tolerated Well -Debridement - Subq, 1st 20sq cm No No #9 LEFT MEDIAL FOOT -Time 09:52 09:36 -Correct Patient Yes Yes -Correct Side, Site, Position Yes Yes -Correct Procedure Yes Yes -Procedure Performed Yes Yes -Type of Procedure Debridement Debridement -Clinical Debridement Subcutaneous Subcutaneous -Tissue Removed Subcutaneous Subcutaneous -Post Debridement (cm) - Length 0.6 0.7 -Post Debridement (cm) - Width 0.8 0.7 -Post Debridement (cm) - Depth 0.3 0.3 -Total Square (Post) (cm) 0.48 0.49 -Area of Debridement (cm) - Length 0.6 0.7 -Area of Debridement (cm) - Width 0.8 0.7 -Total Square (Area) (cm) 0.48 0.49 -Tunneling No No -Undermining/Tunneling No No -Circular Undermining No No -Wound/Ulcer Outcome Not Healed Not Healed -Ulcer Cleansing Rinsed/ Rinsed/ Irrigated with Irrigated with Saline Saline -Foul Odor after Cleansing No No -Bioengineered Tissue No No -Bleeding Controlled with Pressure Pressure -Offloading No No -Treatment Response Procedure Procedure Tolerated Well Tolerated Well -Debridement - Subq, 1st 20sq cm Yes Yes Pain Scale: 0-10 Numeric Is Patient Pain Free? Yes Yes WC - Nurse 3 - General Ulcer D/C NN Start: 06/09/21 09:28 Freq: Status: Active Protocol: Activity Type Activity Date Activity User E-Sign Co-Sign Detail Recorded Client Recorded Date Recorded By Document 06/09/21 10:09 RB [id number] 06/09/21 10:10 RB Document 06/23/21 10:05 RB [id number] 06/23/21 10:05 RB 06/09/21 06/23/21 10:09 10:05 Wound Care Nurse 3 10-left lateral foot 5th methead -Ulcer Cleansing Rinsed/ Irrigated with Saline -Primary Dressing Applied NonAdherent C Hydrogel ($) Contact Layer -Other Dressing hydrogel -Primary Dressing Covered/Secured with Dry Gauze,Dry Dry Gauze,Dry Gauze & Roll Gauze & Roll Gauze,Secured Gauze,Secured with Tape with Tape #9 LEFT MEDIAL FOOT -Ulcer Cleansing Rinsed/ Irrigated with Saline -Primary Dressing Applied Aquacel AG 4x4 Aquacel AG 4x4 -Primary Dressing Covered/Secured with Dry Gauze,Dry Dry Gauze,Dry Gauze & Roll Gauze & Roll Gauze,Secured Gauze,Secured with Tape with Tape -Aquacel AG 4x4 1 1 Treatment Response Procedure Procedure Tolerated Well Tolerated Well Pain Scale: 0-10 Numeric Is Patient Pain Free? Yes Yes WC - Visit Discharge Discharge Condition Stable Stable Ambulatory Status Ambulatory Transportation Private Auto Private Auto Medication Reconcilliation completed & No No provided to patient/care provider Clinical Summary of Care Provided Yes Yes Assessment/Plan Assessment/Plan (1) Rheumatoid arthritis: CODE(S): M06.9 - Rheumatoid arthritis, unspecified QUALIFIERS: Rheumatoid arthritis location: foot Rheumatoid factor presence: unspecified presence Laterality: bilateral Qualified Code(s): M06.9 - Rheumatoid arthritis, unspecified (2) Fat pad atrophy of foot: CODE(S): L90.9 - Atrophic disorder of skin, unspecified (3) Osteomyelitis, chronic, ankle or foot: CODE(S): M86.679 - Other chronic osteomyelitis, unspecified ankle and foot (4) Delayed wound healing: CODE(S): T14.8XXD - Other injury of unspecified body region, subsequent encounter (5) Steroid long-term use: (6) PAD (peripheral artery disease): CODE(S): I73.9 - Peripheral vascular disease, unspecified (7) Chronic ulcer of left foot with necrosis of bone: CODE(S): L97.524 - Non-pressure chronic ulcer of other part of left foot with necrosis of bone (8) Skin tear of left lower leg without complication: CODE(S): S81.812A - Laceration without foreign body, left lower leg, initial encounter (9) Difficulty in walking, not elsewhere classified: CODE(S): R26.2 - Difficulty in walking, not elsewhere classified (10) Non-pressure chronic ulcer of other part of left foot with fat layer exposed: CODE(S): L97.522 - Non-pressure chronic ulcer of other part of left foot with fat layer exposed PLAN: Patient seen and examined. Debridement was performed to the left foot as noted in the clinical nursing panel. She is noted to have healed all ulcerations except left sub first metatarsal head and new lateral and dorsal left foot. She continues to use the offloading inserts with significant improvement noted since beginning use however recently removed the left insole. Compliance was discussed. We discussed at length today the other more successful ways to offload wounds however she is not able to safely perform these due to her walking difficulty, balance, fall risk st atus. We discussed the benefits and risks of each opportunity. To continue wearing sneaker with offloading modification made recently. She is noted to use tubigrip. Discussed previously that the swelling may be cardiac in origin. She continues to follow-up with electric serviceman as recommended previously. She had prior infections and was treated with infectious disease. There are no signs infection noted today. Patient was previously treated with linezolid and Flagyl per Dr. Clements. Patient cultures from 01/19/2021 demonstrated Staphylococcus epididymis and anaerobic cocci. no local signs of infection noted today. This has been completed. It is also noted that she was already treated for osteomyelitis. Discussed with patient going a more palliative wound care route with her chronic nonhealing ulcerations especially given significant comorbidities and treatment of healing with medications. She elects to return biweekly. Debridement performed as noted. Verbal consent was obtained and she tolerated this well. LEAS 06/30/20 showed moderate distal small vessel disease bilaterally at the digits. The left foot was noted to have biphasic pulses with CRUZ of 1.27 and TBI of 0.37. The left PT was noncompressible. The right foot PT and DP were noncompressible and TBI of 0.4 with triphasic and biphasic pulses. Patient had procedure with Dr Oseguera 07/21/20. Patient reports that the procedure went well. Dr. Oseguera has no further interventions planned at this time. The etiology of her ulcers appears to be from pressure at sites of metatarsal heads as there is significant fat pad atrophy. Discussed with the patient the importance of proper shoe gear with good padding to supplement lost fat pad. This is most likely due to her rheumatoid arthritis, chronic prednisone tr eatment may also have a role in the nonhealing of the ulcers. Patient has been using offloaded diabetic shoe inserts that she paid for [id number] and picked up from the office last week. Discussed importance of non-smoking, blood sugar control, weight management, offloading, proper nutrition, and hygiene to optimize healing potential. Discussed that her chronic steroid use for her RA can impact wound healing as well as impact her body's ability to mount an immune response. We discussed the option of transitioning her back to her medications under the management of her registered nurse float pool. I do not think this would benefit her wound healing progression however she understands if she is having flareups and needs to return to the medication that is okay to proceed forward with more of a palliative type wound care plan. Her note will be faxed to [facility] rheumatology. She sees Dr. Tovar. Her tentative plan is to progress back to methotrexate so she can stop her prednisone. Recent medical records reviewed. Discussed the importance of proper nutrition including getting enough protein in her diet to help with healing. Bone biopsy 01/05/2021 results of the first metatarsal head on the left foot confirm diagnosis of osteomyelitis infection. Previously obtained MRI also showed osteomyelitis. Patient has undergone multiple rounds of antibiotic treatments per Dr. Clements in infectious disease for this. Surgical treatment options were also discussed with patient but it was decided that it was not worth the risk of potentially creating a larger wound that potentially more bacteria could then get into to infect the wound. Patient is a poor surgical candidate. Updated left foot x-ray ordered. Updated left foot x-ray did not demonstrate any progressive osseous destruction soft tissue emphysema or foreign body. She also has decreased bone density noted on this foot. Patient saw Dr. Steinberg for HBO evaluation. This was given prior to patient's recent heart attack and hospital admission. Patient will need to get cardiac clearance prior to being approved for HBO. This was not given at this time. We will potentially reconsider HBO therapy in the future if ever given cardiac clearance. We will hold off on this due to her recent fatigue. Encouraged protein rich diet and protein supplements. Discussed Vick supplementation. Patient is overall frail appearance with muscle atrophy noted. All questions answered. She is stable and will follow up in 2 weeks. Dressings: Continue wound care to foot ulcerations daily. To use Aquacel silver to subfirst metatarsal head ulcer site and hydrogel to other ulcers. To moisturize the legs and feet daily. Patient was given Tubigrip's for compression and edema control. To pad and protect abrasion and preulcerative area This note was generated with [employer] dictation software. It may contain incorrect words, spelling, and punctuation that were not noted in checking the note before signing.
== END 2021-07-05 23:59 | disposition home or self-care (01) ==
LOC: WC 09:15
PROVIDERS: PCP Physician Assistant; Visit Provider Podiatrist
DX: L97.524 Non-pressure chronic ulcer of other part of left foot with necrosis of bone (principal); L97.522 Non-pressure chronic ulcer of other part of left foot with fat layer exposed; M06.9 Rheumatoid arthritis, unspecified; M86.679 Other chronic osteomyelitis, unspecified ankle and foot; I73.9 Peripheral vascular disease, unspecified; S81.812A Laceration without foreign body, left lower leg, initial encounter; R26.2 Difficulty in walking, not elsewhere classified; L90.9 Atrophic disorder of skin, unspecified; T14.8XXD Other injury of unspecified body region, subsequent encounter
CPT/HCPCS: 11042

== ENCOUNTER 2021-07-21 09:45 | Outpatient (RCR) | payer MEDICARE, SELFPAY ==
[2021-07-06 00:27] VITALS: BP 154/85; PULSE 80; RESP 18; TEMP 36.4; BMI 18.6
[2021-07-07 09:33] VITALS: BP 167/74; PULSE 73; RESP 18; TEMP 36.4; BMI 18.6
--- NOTE | 2021-07-07 11:17 | PN.PCM_ITS ---
History of Present Illness Date of Service: 07/07/21 Chief Complaint: Left 1st metatarsal ulceration with chronic refractory os teomyelitis of the left first metatarsal. left foot ulcer History of Wound: Kylah is a 76-year-old female who was referred here for treatment bilateral feet ulcerations. Patient is noted to have significant fat pad atrophy likely secondary to her rheumatoid arthritis. Patient is on multiple medications for her rheumatoid arthritis which are impeding her wound healing. Patient is also prone to breakdown given lack of fat pad. Patient noted to have had MRIs which showed osteomyelitis and has been treated by Dr. Clements with antibiotic treatments. Patient is a poor surgical candidate given her poor healing status and multiple comorbidities. The patient has had vascular studies on 06/30/20 showed moderate distal small vessel disease bilaterally at the digits with some non compressible vessels. Patient saw her vascular surgeon, Dr. Oseguera, who did intervention on the patient on 07/21/20. Dr. Oseguera is considering additional angiogram with intervention. This exact plan is pending. She had MRI on 06/25/20 which showed osteomyelitis to left 1st metatarsal. 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 These are acknowledged to be possible inhibitors to wound healing. Patient noted to have painful feet due to her rheumatoid arthritis. Patient is also noted to have had recent heart attack and has been started on blood thinners for this. She offloads with Plastizote accommodative inserts in her shoes and slippers at home. She is a fall risk and was previously unable to wear surgical offloading shoes or boots. He also put a hole in the side of her left shoe to offload her ulcer site and she reports that this went well after she increased the size of the hole on her own at home this past week. She denies fever, chills, nausea, vomiting. Progress of Wound: Stable Objective Data Objective Data Vital Signs: Vital Signs Temp Pulse Resp BP 97.6 F L 73 18 167/74 H 07/07/21 09:33 07/07/21 09:33 07/07/21 09:33 07/07/21 09:33 Weight: 46.266 kg Body Mass Index (BMI) 18.6 Physical Exam Narrative Const alert and no apparent distress General Appearance: cooperative and comfortable Patient has overall frail appearance Extremity no calf tenderness, negative yasmine and baker sign No lower extremity edema General Extremity: tenderness to palpation palpable metatarsal heads. There is Significant fat pad atrophy noted with easily palpable metatarsal heads 1 through 5 bilaterally. Negative for clubbing or cyanosis or ecchymosis or erythema Vasc Peripheral Pulses: posterior tibial pulses absent and dorsalis pedis pulses present but diminished, normal capillary refill, no acute ischemic skin changes noted, cool temperature Skin General Skin Exam: dry flaky atrophic skin to entire bilateral lower extremities, absent hair growth noted; Negative for ecchymosis, eschar, pallor, rashes. Patient skin in general is in very poor condition especially since starting blood thinners. Her arms are noted to be extremely dark and discolored to her entire forearms. Wound Narrative: ulcers noted to plantar first metatarsal head left and lateral forefoot left. left subfirst metatarsal head ulceration. Bone continues to be exposed and is white and healthier in appearance-stable. Less serous drainage noted. No s urrounding erythema or edema. No malodor, streaking, fluctuation, crepitus. Skin is atrophic and hairless. There is a lateral fifth metatarsal head ulcer that is fibrous and dry with exposed bone and without deep tissue necrosis or infection. There is significant amount of fat pad atrophy noted to bilateral feet secondary to patient's rheumatoid arthritis. There is noted minimal callus at previous ulceration sites. Pain to palpation of plantar forefoot bilaterally Neuro: Gait (Neuro): heel to toe. Guarded, slow, and unsteady Sensory Exam: extremities light-touch: Intact Debridement Note Debridement Note Wound debrided: left sub 1st metatarsal head and lateral fifth metatarsal head Wound Grade/Stage: Type of Debridement: Excisional debridement Anesthesia Used: 4% Lidocaine Solution Depth: in the subcutaneous layer Percentage of wound debrided: 100 Instrument Used: #15 blade Tissue Removed: fibrous, devitalized subcutaneous, biofilm, slough Severity: Fat Layer Exposed Amount of bleeding with debridement: Mild Bleeding Controlled with: Pressure Patient tolerated procedure: Patient tolerated procedure well Post-Debridement Measurements and Additional Note: Post-Debridement Measure ments/Treatment - Nurse 1 - General Ulcer Assessment Start: 07/07/21 09:33 Freq: Status: Active Protocol: [email or web address] Activity Type Activity Date Activity User E-Sign Co-Sign Detail Recorded Client Recorded Date Recorded By Document 07/07/21 09:33 TARI [id number] 07/07/21 09:45 DL 07/07/21 09:33 - Today's Visit Information Type of service Follow-up Visit (Physician/RELIEF MAN ) Arrival Mode Ambulatory Transfer Assistance None Patient Identification Verified (Name & Yes ) Patient Requires Transmission-Based No Precautions Height and Weight Body Mass Index (BMI) 18.6 BMI Classification Normal Vital Signs Temperature (97.8 F-99.1 F) 97.6 F L Temperature Source Temporal Pulse Rate (60-100) 73 Pulse Location Monitor Respiratory Rate (12-18) 18 Respiratory rate source Observation Blood Pressure (90/60-120/80) 167/74 H Blood Pressure Mean (mm Hg) 105 Source Monitor History Since Last Visit- (Skip if this is Patient's initial visit) Have you changed medications since your No last visit? Any new allergies or adverse reactions No Had a fall/change in ADL's that may No increase risk of falls Signs or symptoms of abuse and/or No neglect since last visit Have you been in the hospital since your No last visit? Has dressing in place as prescribed Yes Has compression in place as prescribed N/A Experienced any changes in pain level or No management Left Footwear Custom Shoe Right Footwear Custom Shoe Pain Scale: 0-10 Numeric Is Patient Pain Free? Yes - Nurse 1 - General Ulcer Measurement Start: 07/07/21 09:33 Freq: Status: Active Protocol: Activity Type Activity Date Activity User E-Sign Co-Sign Detail Recorded Client Recorded Date Recorded By Document 07/07/21 09:33 DL [id number] 07/07/21 09:45 07/07/21 09:33 Wound Center Nurse 1 10-left lateral foot 5th methead -Current Size (cm) - Length 0.2 -Current Size (cm) - Width 0.2 -Current Size (cm) - Depth 0.2 -Total Square Cm 0.04 -Photo Taken No -Exudate Amt None Present -Wound Margin Distinct, Outline Attached -Granulation Amt None Present (0 %) -Necrosis Amt Small (1-33%) -Necrotic Tissue Type Adherent Slough -Structure Exposed Bone -Texture (Анна-wound Skin Appearance) Scarring -Moisture (Анна-wound Skin Appearance) Dry/Scaly -Color (Анна-wound Skin Appearance) Hemosiderin Staining -Temperature (Анна-wound Skin No Abnormality Appearance) (Pt Warm) -Ulcer Cleansing Soap and Water -Foul Odor after Cleansing No -Anesthetic Used 5% Lidocaine Gel #9 LEFT MEDIAL FOOT -Current Size (cm) - Length 0.5 -Current Size (cm) - Width 0.6 -Current Size (cm) - Depth 0.4 -Total Square Cm 0.30 -Photo Taken Yes -Exudate Amt Small -Exudate Type Serosanguineous -Wound Margin Distinct, Outline Attached -Granulation Amt None Present (0 %) -Necrosis Amt Large (67-100%) -Necrotic Tissue Type Eschar -Structure Exposed N/A -Texture (Анна-wound Skin Appearance) Scarring -Moisture (Анна-wound Skin Appearance) Dry/Scaly -Color (Анна-wound Skin Appearance) Hemosiderin Staining -Temperature (Анна-wound Skin No Abnormality Appearance) (Pt Warm) -Tenderness on Palpation (Анна-wound No Skin Appearance) -Ulcer Cleansing Soap and Water -Foul Odor after Cleansing No -Anesthetic Used 4% Lidocaine Solution WC - Nurse 2 - General Ulcer CM Notes Start: 07/07/21 09:33 Freq: Status: Active Protocol: Activity Type Activity Date Activity User E-Sign Co-Sign Detail Recorded Client Recorded Date Recorded By Document 07/07/21 10:04 REJI [id number] 07/07/21 10:06 REJI 07/07/21 10:04 Wound Center Nurse 2 10-left lateral foot 5th methead -Time 10:05 -Correct Patient Yes -Correct Side, Site, Position Yes -Correct Procedure Yes -Procedure Performed Yes -Type of Procedure Debridement -Clinical Debridement Subcutaneous -Tissue Removed Subcutaneous -Post Debridement (cm) - Length 0.3 -Post Debridement (cm) - Width 0.3 -Post Debridement (cm) - Depth 0.2 -Total Square (Post) (cm) 0.09 -Area of Debridement (cm) - Length 0.3 -Area of Debridement (cm) - Width 0.3 -Total Square (Area) (cm) 0.09 -Tunneling No -Undermining/Tunneling No -Circular Undermining No -Wound/Ulcer Outcome Not Healed -Ulcer Cleansing Rinsed/ Irrigated with Saline -Foul Odor after Cleansing No -Bioengineered Tissue No -Bleeding Controlled with Pressure -Offloading No -Treatment Response Procedure Tolerated Well -Debridement - Subq, 1st 20sq cm No #9 LEFT MEDIAL FOOT -Time 10:05 -Correct Patient Yes -Correct Side, Site, Position Yes -Correct Procedure Yes -Procedure Performed Yes -Type of Procedure Debridement -Clinical Debridement Subcutaneous -Tissue Removed Subcutaneous -Post Debridement (cm) - Length 0.6 -Post Debridement (cm) - Width 0.6 -Post Debridement (cm) - Depth 0.4 -Total Square (Post) (cm) 0.36 -Area of Debridement (cm) - Length 0.6 -Area of Debridement (cm) - Width 0.6 -Total Square (Area) (cm) 0.36 -Tunneling No -Undermining/Tunneling No -Circular Undermining No -Wound/Ulcer Outcome Not Healed -Foul Odor after Cleansing No -Bioengineered Tissue No -Bleeding Controlled with Pressure -Offloading No -Treatment Response Procedure Tolerated Well -Debridement - Subq, 1st 20sq cm Yes Pain Scale: 0-10 Numeric Is Patient Pain Free? Yes - Nurse 3 - General Ulcer D/C NN Start: 07/07/21 09:33 Freq: Status: Active Protocol: Activity Type Activity Date Activity User E-Sign Co-Sign Detail Recorded Client Recorded Date Recorded By Document 07/07/21 10:13 REJI [id number] 07/07/21 10:13 REJI 07/07/21 10:13 Wound Care Nurse 3 10-left lateral foot 5th methead -Ulcer Cleansing Rinsed/ Irrigated with Saline -Foul Odor after Cleansing No -Primary Dressing Applied C Hydrogel ($) -Primary Dressing Covered/Secured with Dry Gauze & Roll Gauze, Secured with Tape #9 LEFT MEDIAL FOOT -Ulcer Cleansing Rinsed/ Irrigated with Saline -Foul Odor after Cleansing No -Primary Dressing Applied Aquacel AG 2x2 -Primary Dressing Covered/Secured with Dry Gauze & Roll Gauze, Secured with Tape -Aquacel AG 2x2 1 Pain Scale: 0-10 Numeric Is Patient Pain Free? Yes - Visit Discharge Discharge Condition Stable Ambulatory Status Ambulatory Transportation Private Auto Medication Reconcilliation completed & Yes provided to patient/care provider Clinical Summary of Care Provided Yes Assessment/Plan Assessment/Plan (1) Rheumatoid arthritis: CODE(S): M06.9 - Rheumatoid arthritis, unspecified QUALIFIERS: Rheumatoid arthritis location: foot Rheumatoid factor presence: unspecified presence Laterality: bilateral Qualified Code(s): M06.9 - Rheumatoid arthritis, unspecified (2) Fat pad atrophy of foot: CODE(S): L90.9 - Atrophic disorder of skin, unspecified (3) Osteomyelitis, chronic, ankle or foot: CODE(S): M86.679 - Other chronic osteomyelitis, unspecified ankle and foot (4) Delayed wound healing: CODE(S): T14.8XXD - Other injury of unspecified body region, subsequent encounter (5) Steroid long-term use: (6) PAD (peripheral artery disease): CODE(S): I73.9 - Peripheral vascular disease, unspecified (7) Chronic ulcer of left foot with necrosis of bone: CODE(S): L97.524 - Non-pressure chronic ulcer of other part of left foot with necrosis of bone (8) Skin tear of left lower leg without complication: CODE(S): S81.812A - Laceration without foreign body, left lower leg, initial encounter (9) Difficulty in walking, not elsewhere classified: CODE(S): R26.2 - Difficulty in walking, not elsewhere classified (10) Non-pressure chronic ulcer of other part of left foot with fat layer exposed: CODE(S): L97.522 - Non-pressure chronic ulcer of other part of left foot with fat layer exposed PLAN: Patient seen and examined. Debridement was performed to the left foot as noted in the clinical nursing panel. She is noted to have healed all ulcerations except left sub first metatarsal head and lateralleft foot. She continues to use the offloading inserts with significant improvement noted since beginning use however recently removed the left insole. Compliance was discussed. We discussed at length today the other more successful ways to offload wounds however she is not able to safely perform these due to her walking difficulty, balance, fall risk status. We discussed the benefits and risks of each opportunity. To continue wearing sneaker with offloading modification made recently. She is noted to use tubigrip. Discussed previously that the swelling may be cardiac in origin. She continues to follow-up with magnetic resonance imaging coordinator as recommended previously. She had prior infections and was treated with infectious disease. There are no signs infection noted today. Patient was previously treated with linezolid and Flagyl per Dr. Clements. Patient cultures from 01/19/2021 demonstrated Staphylococcus epididymis and anaerobic cocci. no local signs of infection noted today. This has been completed. It is also noted that she was already treated for osteomyelitis. Discussed with patient going a more palliative wound care route with her chronic nonhealing ulcerations especially given significant comorbidities and treatment of healing with medications. She elects to return biweekly. Debridement performed as noted. Verbal consent was obtained and she tolerated this well. LEAS 06/30/20 showed moderate distal small vessel disease bilaterally at the digits. The left foot was noted to have biphasic pulses with CRUZ of 1.27 and TBI of 0.37. The left PT was noncompressible. The right foot PT and DP were noncompressible and TBI of 0.4 with triphasic and biphasic pulses. Patient had procedure with Dr Oseguera 07/21/20. Patient reports that the procedure went well. Dr. Oseguera is considering additional angiogram with intervention at this time. He communicated this last week. I advised the patient to call and schedule and proceed forward with recommendations. The etiology of her ulcers appears to be from pressure at sites of metatarsal heads as there is significant fat pad atrophy. Discussed with the patient the importance of proper shoe gear with good padding to supplement lost fat pad. This is most likely due to her rheumatoid arthritis, chronic prednisone treatment may also have a role in the nonhealing of the ulcers. Patient has been using offloaded diabetic shoe inserts that she paid for [id number] and picked up from the office last week. Discussed importance of non-smoking, blood sugar control, weight management, offloading, proper nutrition, and hygiene to optimize healing potential. Discussed that her chronic steroid use for her RA can impact wound healing as well as impact her body's ability to mount an immune response. We discussed the option of transitioning her back to her medications under the management of her sweep molder. I do not think this would benefit her wound healing progression however she understands if she is having flareups and needs to return to the medication that is okay to proceed forward with more of a palliative type wound care plan. Her note will be faxed to [facility] rheumatology. She sees Dr. Tovar. Her tentative plan is to progress back to methotrexate so she can stop her prednisone. Recent medical records reviewed. Discussed the importance of proper nutrition including getting enough protein in her diet to help with healing. Bone biopsy 01/05/2021 results of the first metatarsal head on the left foot confirm diagnosis of osteomyelitis infection. Previously obtained MRI also showed osteomyelitis. Patient has undergone multiple rounds of antibiotic treatments per Dr. Clements in infectious disease for this. Surgical treatment options were also discussed with patient but it was decided that it was not worth the risk of potentially creating a larger wound that potentially more bacteria could then get into to infect the wound. Patient is a poor surgical candidate. Updated left foot x-ray ordered. Updated left foot x-ray did not demonstrate any progressive osseous destruction soft tissue emphysema or foreign body. She also has decreased bone density noted on this foot. Patient saw Dr. Steinberg for HBO evaluation. This was given prior to patient's recent heart attack and hospital admission. Patient will need to get cardiac clearance prior to being approved for HBO. This was not given at this time. We will potentially reconsider HBO therapy in the future if ever given cardiac clearance. We will hold off on this due to her recent fatigue. Encouraged protein rich diet and protein supplements. Discussed Vick supplementation. Patient is overall frail appearance with muscle atrophy noted. All questions answered. She is stable and will follow up in 2 weeks. Dressings: Continue wound care to foot ulcerations daily. To use Aquacel silver to subfirst metatarsal head ulcer site and hydrogel to other ulcers. To moisturize the legs and feet daily. Patient was given Tubigrip's for compression and edema control. To pad and protect abrasion and preulcerative area This note was generated with [employer] dictation software. It may contain incorrect words, spelling, and punctuation that were not noted in checking the note before signing. The medical decision making level is low. There is noted low risk of morbidity after considering this treatment plan and diagnostic data. The problems addressed require a low medical decision making level which includes two or more minor problems, a stable chronic illness, or an acute uncomplicated illness or injury.
[2021-07-21 09:39] VITALS: BP 144/43; PULSE 84; RESP 18; TEMP 36.8; BMI 18.6
--- NOTE | 2021-07-21 12:51 | PCM.WC.PN ---
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 left foot ulcer right ankle and leg ulcers (new) History of Wound: Kylah is a 76-year-old female who was referred here for treatment bilateral feet ulcerations. Patient is noted to have significant fat pad atrophy likely secondary to her rheumatoid arthritis. Patient is on multiple medications for her rheumatoid arthritis which are impeding her wound healing. Patient is also prone to breakdown given lack of fat pad. Patient noted to have had MRIs which showed osteomyelitis and has been treated by Dr. Clements with antibiotic treatments. Patient is a poor surgical candidate given her poor healing status and multiple comorbidities. The patient has had vascular studies on 06/30/20 showed moderate distal small vessel disease bilaterally at the digits with some non compressible vessels. Patient saw her vascular surgeon, Dr. Oseguera, who did intervention on the patient on 07/21/20. Dr. Oseguera is considering additional angiogram with intervention. This exact plan is pending. She had MRI on 06/25/20 which showed osteomyelitis to left 1st metatarsal. The patient is noted to be a prior jail user of prednisone and methotrexate for her rheumatoid arthritis. These are acknowledged to be possible inhibitors to wound healing. Patient noted to have painful feet due to her rheumatoid arthritis. Patient is also noted to have had recent heart attack and has been started on blood thinners for this. She offloads with Plastizote accommodative inserts in her shoes and slippers at home. She is a fall risk and was previously unable to wear surgical offloading shoes or boots. He also put a hole in the side of her left shoe to offload her ulcer site and she reports that this went well after she increased the size of the hole on her own at home this past week. She denies fever, chills, nausea, vomiting. She relates she has some recent back pain with excessive arthritis identified by a recent orthopedic physician evaluation. She is also being referred to pain management. She reports she is placing all vascular intervention on hold and had some questions about this today. She is not aware of her new right ankle and leg ulcers. She denies injuries. She also relates she is unable to take a shower because she cannot get into her bathtub nor does she have adequate assistance at home. She is initially apprehensive about agreeing to home health assistance. Progress of Wound: Stable left foot New right lower extremity ulcers Objective Data Objective Data Vital Signs: Vital Signs Temp Pulse Resp BP 98.2 F 84 18 144/43 H 07/21/21 09:39 07/21/21 09:39 07/21/21 09:39 07/21/21 09:39 Weight: 46.266 kg Body Mass Index (BMI) 18.6 Physical Exam Narrative Const alert and no apparent distress General Appearance: cooperative and comfortable Patient has overall frail appearance Extremity no calf tenderness, negative yasmine and baker sign No lower extremity edema General Extremity: tenderness to palpation palpable metatarsal heads. There is Significant fat pad atrophy noted with easily palpable metatarsal heads 1 through 5 bilaterally. Negative for clubbing or cyanosis or ecchymosis or erythema Vasc Peripheral Pulses: posterior tibial pulses absent and dorsalis pedis pulses present but diminished, normal capillary refill, no acute ischemic skin changes noted, cool temperature Skin General Skin Exam: dry flaky atrophic skin to entire bilateral lower extremities, absent hair growth noted; Negative for ecchymosis, eschar, pallor, rashes. Patient skin in general is in very poor condition especially since starting blood thinners. Her arms are noted to be extremely dark and discolored to her entire forearms. Wound Narrative: ulcers noted to plantar first metatarsal head left and lateral forefoot left. left subfirst metatarsal head ulceration. Bone continues to be exposed and is white and healthier in appearance-stable. Less serous drainage noted. No surrounding erythema or edema. No malodor, streaking, fluctuation, crepitus. Skin is atrophic and hairless. There is a lateral fifth metatarsal head ulcer that is fibrous and dry with exposed bone and without deep tissue necrosis or infection. There is significant amount of fat pad atrophy noted to bilateral feet secondary to patient's rheumatoid arthritis. There is noted minimal callus at previous ulceration sites. New lateral right ankle ulcer is punctate with fibrous base that has subcutaneous tissue exposed. There is no probe to bone at this site. There is also superficial new skin discontinuity with some hemorrhagic and partial dermal layer intact to the anterior mid leg Bilateral lower extremities with scale buildup secondary likely to edema and lack of hygiene Pain to palpation of plantar forefoot bilaterally Neuro: Gait (Neuro): heel to toe. Guarded, slow, and unsteady Sensory Exam: extremities light-touch: Intact Debridement Note Debridement Note Wound debrided: Right: Lateral ankle.Left: Subfirst and fifth metatarsal heads.Right:leg Wound Grade/Stage: Type of Debridement: Excisional debridement (lateral right ankle. left sub 1st and 5th metatarsal heads) and Selective debridement (anterior right leg) Anesthesia Used: 4% Lidocaine Solution Depth: in the subcutaneous layer Percentage of wound debrided: 100 Instrument Used: #15 blade Tissue Removed: fibrous, devitalized subcutaneous, biofilm, slough Severity: Fat Layer Exposed Amount of bleeding with debridement: Mild Bleeding Controlled with: Pressure Patient tolerated procedure: Patient tolerated procedure well Post-Debridement Measurements and Additional Note: Post-Debridement Measurements/Treatment - Nurse 1 - General Ulcer Assessment Start: 07/07/21 09:33 Freq: Status: Active Protocol: GEORGE Activity Type Activity Date Activity User E-Sign Co-Sign Detail Recorded Client Recorded Date Recorded By Document 07/07/21 09:33 DL [id number] 07/07/21 09:45 DL Document 07/21/21 09:39 RB [id number] 07/21/21 10:02 RB 07/07/21 07/21/21 09:33 09:39 - Today's Visit Information Type of service Follow-up Visit Follow-up Visit (Physician/INTERLOCKING AND SIGNAL MECHANIC (Physician/INTERLOCKING AND SIGNAL MECHANIC ) ) Arrival Mode Ambulatory Wheelchair Transfer Assistance None Manual Patient Identification Verified (Name & Yes Yes ) Patient Requires Transmission-Based No No Precautions Height and Weight Body Mass Index (BMI) 18.6 18.6 BMI Classification Normal Normal Vital Signs Temperature (97.8 F-99.1 F) 97.6 F L 98.2 F Temperature Source Temporal Temporal Pulse Rate (60-100) 73 84 Pulse Location Monitor Monitor Respiratory Rate (12-18) 18 18 Respiratory rate source Observation Observation Blood Pressure (90/60-120/80) 167/74 H 144/43 H Blood Pressure Mean (mm Hg) 105 76 Source Monitor Monitor Position Sitting Blood Pressure Location Left Arm History Since Last Visit- (Skip if this is Patient's initial visit) Have you changed medications since your No No last visit? Any new allergies or adverse reactions No No Had a fall/change in ADL's that may No No increase risk of falls Signs or symptoms of abuse and/or No No neglect since last visit Have you been in the hospital since your No No last visit? Has dressing in place as prescribed Yes Yes Has compression in place as prescribed N/A No Has offloadiing in place as prescribed No Experienced any changes in pain level or No No management Left Footwear Custom Shoe Regular Shoe Right Footwear Custom Shoe Regular Shoe Pain Scale: 0-10 Numeric Is Patient Pain Free? Yes No lower back -Description Aching -Intensity 9 -Duration (hours) Chronic -Pain Behavior Guarding -Pain Aggravating Factors Exercise/ Activity, Standing, Walking -Alleviating Factors/Interventions Medication -Effectiveness of Alleviating Factor/ Moderately Intervention effective WC - Nurse 1 - General Ulcer Measurement Start: 07/07/21 09:33 Freq: Status: Active Protocol: Activity Type Activity Date Activity User E-Sign Co-Sign Detail Recorded Client Recorded Date Recorded By Document 07/07/21 09:33 DL [id number] 07/07/21 09:45 DL Document 07/21/21 09:39 RB [id number] 07/21/21 10:02 RB Edit Result 07/21/21 09:39 RB (1) [id number] 07/21/21 10:02 RB (1) Lower Limb Edema Present => Yes Right Calf (cm) => 32.5 Right Ankle (cm) => 18.5 Left Calf (cm) => 31 Left Ankle (cm) => 17 07/07/21 07/21/21 09:33 09:39 Wound Center Nurse 1 12. R lateral ankle -Combined with other wound No -Current Size (cm) - Length 0.5 -Current Size (cm) - Width 0.5 -Current Size (cm) - Depth 0.4 -Total Square Cm 0.25 -Tunneling No -Undermining/Tunneling No -Circular Undermining No -Exudate Amt Medium -Exudate Type Serosanguineous -Wound Margin Thickened & Rolled Under -Granulation Amt Medium (34-66%) -Granulation Quality [place] -Slough/Fibrin Yes -Necrosis Amt Medium (34-66%) -Necrotic Tissue Type Adherent Slough -Structure Exposed N/A -Texture (Анна-wound Skin Appearance) Assessed -Moisture (Анна-wound Skin Appearance) Assessed -Color (Анна-wound Skin Appearance) Assessed -Temperature (Анна-wound Skin No Abnormality Appearance) (Pt Warm) -Tenderness on Palpation (Анна-wound No Skin Appearance) -Ulcer Cleansing Wound Cleanser -Foul Odor after Cleansing No -Anesthetic Used 5% Lidocaine Gel 10-left lateral foot 5th methead -Combined with other wound No -Current Size (cm) - Length 0.2 0.3 -Current Size (cm) - Width 0.2 0.3 -Current Size (cm) - Depth 0.2 0.2 -Total Square Cm 0.04 0.09 -Photo Taken No -Tunneling No -Undermining/Tunneling No -Circular Undermining No -Exudate Amt None Present Medium -Exudate Type Serosanguineous -Wound Margin Distinct, Distinct, Outline Outline Attached Attached -Granulation Amt None Present (0 Medium (34-66%) %) -Granulation Quality [place] -Slough/Fibrin Yes -Necrosis Amt Small (1-33%) Small (1-33%) -Necrotic Tissue Type Adherent Slough Adherent Slough -Structure Exposed Bone N/A -Texture (Анна-wound Skin Appearance) Scarring Assessed -Moisture (Анна-wound Skin Appearance) Dry/Scaly Assessed -Color (Анна-wound Skin Appearance) Hemosiderin Assessed Staining -Temperature (Анна-wound Skin No Abnormality No Abnormality Appearance) (Pt Warm) (Pt Warm) -Tenderness on Palpation (Анна-wound No Skin Appearance) -Ulcer Cleansing Soap and Water Wound Cleanser -Foul Odor after Cleansing No No -Anesthetic Used 5% Lidocaine 5% Lidocaine Gel Gel #9 LEFT MEDIAL FOOT -Combined with other wound No -Current Size (cm) - Length 0.5 0.9 -Current Size (cm) - Width 0.6 0.9 -Current Size (cm) - Depth 0.4 0.3 -Total Square Cm 0.30 0.81 -Photo Taken Yes -Tunneling No -Undermining/Tunneling No -Circular Undermining No -Exudate Amt Small Medium -Exudate Type Serosanguineous Serosanguineous -Wound Margin Distinct, Distinct, Outline Outline Attached Attached -Granulation Amt None Present (0 Medium (34-66%) %) -Granulation Quality [place] -Slough/Fibrin Yes -Necrosis Amt Large (67-100%) Medium (34-66%) -Necrotic Tissue Type Eschar Adherent Slough -Structure Exposed N/A N/A -Texture (Анна-wound Skin Appearance) Scarring Assessed -Moisture (Анна-wound Skin Appearance) Dry/Scaly Assessed -Color (Анна-wound Skin Appearance) Hemosiderin Assessed Staining -Temperature (Анна-wound Skin No Abnormality No Abnormality Appearance) (Pt Warm) (Pt Warm) -Tenderness on Palpation (Анна-wound No No Skin Appearance) -Ulcer Cleansing Soap and Water Wound Cleanser -Foul Odor after Cleansing No No -Anesthetic Used 4% Lidocaine 5% Lidocaine Solution Gel Lower Limb Edema Present Yes Right Calf (cm) 32.5 Right Ankle (cm) 18.5 Left Calf (cm) 31 Left Ankle (cm) 17 WC - Nurse 2 - General Ulcer CM Notes Start: 07/07/21 09:33 Freq: Status: Active Protocol: Activity Type Activity Date Activity User E-Sign Co-Sign Detail Recorded Client Recorded Date Recorded By Document 07/07/21 10:04 REJI [id number] 07/07/21 10:06 Document 07/21/21 10:15 [id number] 07/21/21 10:26 07/07/21 07/21/21 10:04 10:15 Wound Center Nurse 2 13-right [place] cluster -Time 10:22 -Correct Patient Yes -Correct Side, Site, Position Yes -Correct Procedure Yes -Procedure Performed Yes -Type of Procedure Debridement -Clinical Debridement Epidermis / Dermis -Tissue Removed Epidermis, Dermis -Post Debridement (cm) - Length 2.6 -Post Debridement (cm) - Width 0.5 -Post Debridement (cm) - Depth 0.1 -Total Square (Post) (cm) 1.30 -Area of Debridement (cm) - Length 2.6 -Area of Debridement (cm) - Width 0.5 -Total Square (Area) (cm) 1.30 -Tunneling No -Undermining/Tunneling No -Circular Undermining No -Wound/Ulcer Outcome Not Healed -Ulcer Cleansing Rinsed/ Irrigated with Saline -Foul Odor after Cleansing No -Bioengineered Tissue No -Bleeding Controlled with Pressure -Offloading No -Treatment Response Procedure Tolerated Well -Debridement - Open, 1st 20sq cm Yes -Debridement - Subq, 1st 20sq cm No 12. R lateral ankle -Time 10:15 -Correct Patient Yes -Correct Side, Site, Position Yes -Correct Procedure Yes -Procedure Performed Yes -Type of Procedure Debridement -Clinical Debridement Subcutaneous -Tissue Removed Subcutaneous -Post Debridement (cm) - Length 0.6 -Post Debridement (cm) - Width 0.7 -Post Debridement (cm) - Depth 0.3 -Total Square (Post) (cm) 0.42 -Area of Debridement (cm) - Length 0.6 -Area of Debridement (cm) - Width 0.7 -Total Square (Area) (cm) 0.42 -Tunneling No -Undermining/Tunneling No -Circular Undermining No -Wound/Ulcer Outcome Not Healed -Ulcer Cleansing Rinsed/ Irrigated with Saline -Foul Odor after Cleansing No -Bioengineered Tissue No -Bleeding Controlled with Pressure -Offloading No -Treatment Response Procedure Tolerated Well -Debridement - Subq, 1st 20sq cm No 10-left lateral foot 5th methead -Time 10:05 10:16 -Correct Patient Yes Yes -Correct Side, Site, Position Yes Yes -Correct Procedure Yes Yes -Procedure Performed Yes Yes -Type of Procedure Debridement Debridement -Clinical Debridement Subcutaneous Subcutaneous -Tissue Removed Subcutaneous Subcutaneous -Post Debridement (cm) - Length 0.3 0.3 -Post Debridement (cm) - Width 0.3 0.4 -Post Debridement (cm) - Depth 0.2 0.2 -Total Square (Post) (cm) 0.09 0.12 -Area of Debridement (cm) - Length 0.3 0.3 -Area of Debridement (cm) - Width 0.3 0.4 -Total Square (Area) (cm) 0.09 0.12 -Tunneling No No -Undermining/Tunneling No No -Circular Undermining No No -Wound/Ulcer Outcome Not Healed Not Healed -Ulcer Cleansing Rinsed/ Rinsed/ Irrigated with Irrigated with Saline Saline -Foul Odor after Cleansing No No -Bioengineered Tissue No No -Bleeding Controlled with Pressure Pressure -Offloading No No -Treatment Response Procedure Procedure Tolerated Well Tolerated Well -Debridement - Subq, 1st 20sq cm No No #9 LEFT MEDIAL FOOT -Time 10:05 10:16 -Correct Patient Yes Yes -Correct Side, Site, Position Yes Yes -Correct Procedure Yes Yes -Procedure Performed Yes Yes -Type of Procedure Debridement Debridement -Clinical Debridement Subcutaneous Subcutaneous -Tissue Removed Subcutaneous Subcutaneous -Post Debridement (cm) - Length 0.6 0.6 -Post Debridement (cm) - Width 0.6 0.7 -Post Debridement (cm) - Depth 0.4 0.2 -Total Square (Post) (cm) 0.36 0.42 -Area of Debridement (cm) - Length 0.6 0.6 -Area of Debridement (cm) - Width 0.6 0.7 -Total Square (Area) (cm) 0.36 0.42 -Tunneling No No -Undermining/Tunneling No No -Circular Undermining No No -Wound/Ulcer Outcome Not Healed Not Healed -Ulcer Cleansing Rinsed/ Irrigated with Saline -Foul Odor after Cleansing No No -Bioengineered Tissue No No -Bleeding Controlled with Pressure Pressure -Offloading No No -Treatment Response Procedure Procedure Tolerated Well Tolerated Well -Debridement - Subq, 1st 20sq cm Yes Yes Pain Scale: 0-10 Numeric Is Patient Pain Free? Yes Yes WC - Nurse 3 - General Ulcer D/C NN Start: 07/07/21 09:33 Freq: Status: Active Protocol: Activity Type Activity Date Activity User E-Sign Co-Sign Detail Recorded Client Recorded Date Recorded By Document 07/07/21 10:13 [id number] 07/07/21 10:13 Document 07/21/21 10:53 RB [id number] 07/21/21 10:56 RB 07/07/21 07/21/21 10:13 10:53 Wound Care Nurse 3 13-right [place] cluster -Ulcer Cleansing Rinsed/ Irrigated with Saline -Primary Dressing Applied NonAdherent Contact Layer -Other Dressing hydrogel -Primary Dressing Covered/Secured with Dry Gauze,Dry Gauze & Roll Gauze,Secured with Tape 12. R lateral ankle -Ulcer Cleansing Rinsed/ Irrigated with Saline -Primary Dressing Applied NonAdherent Contact Layer -Other Dressing hydrogel -Primary Dressing Covered/Secured with Dry Gauze,Dry Gauze & Roll Gauze,Secured with Tape 10-left lateral foot 5th methead -Ulcer Cleansing Rinsed/ Rinsed/ Irrigated with Irrigated with Saline Saline -Foul Odor after Cleansing No -Primary Dressing Applied C Hydrogel ($) NonAdherent Contact Layer -Other Dressing hydrgel -Primary Dressing Covered/Secured with Dry Gauze & Dry Gauze,Dry Roll Gauze, Gauze & Roll Secured with Gauze,Secured Tape with Tape #9 LEFT MEDIAL FOOT -Ulcer Cleansing Rinsed/ Rinsed/ Irrigated with Irrigated with Saline Saline -Foul Odor after Cleansing No -Primary Dressing Applied Aquacel AG 2x2 Aquacel AG 4x4 -Primary Dressing Covered/Secured with Dry Gauze & Dry Gauze,Dry Roll Gauze, Gauze & Roll Secured with Gauze,Secured Tape with Tape -Aquacel AG 4x4 1 -Aquacel AG 2x2 1 Treatment Response Procedure Tolerated Well Pain Scale: 0-10 Numeric Is Patient Pain Free? Yes Yes WC - Visit Discharge Discharge Condition Stable Stable Ambulatory Status Ambulatory Wheelchair Transportation Private Auto Private Auto Medication Reconcilliation completed & Yes No provided to patient/care provider Clinical Summary of Care Provided Yes Yes Assessment/Plan Assessment/Plan (1) Rheumatoid arthritis: CODE(S): M06.9 - Rheumatoid arthritis, unspecified QUALIFIERS: Rheumatoid arthritis location: foot Rheumatoid factor presence: unspecified presence Laterality: bilateral Qualified Code(s): M06.9 - Rheumatoid arthritis, unspecified (2) Fat pad atrophy of foot: CODE(S): L90.9 - Atrophic disorder of skin, unspecified (3) Osteomyelitis, chronic, ankle or foot: CODE(S): M86.679 - Other chronic osteomyelitis, unspecified ankle and foot (4) Delayed wound healing: CODE(S): T14.8XXD - Other injury of unspecified body region, subsequent encounter (5) Steroid long-term use: (6) PAD (peripheral artery disease): CODE(S): I73.9 - Peripheral vascular disease, unspecified (7) Chronic ulcer of left foot with necrosis of bone: CODE(S): L97.524 - Non-pressure chronic ulcer of other part of left foot with necrosis of bone (8) Skin tear of left lower leg without complication: CODE(S): S81.812A - Laceration without foreign body, left lower leg, initial encounter (9) Difficulty in walking, not elsewhere classified: CODE(S): R26.2 - Difficulty in walking, not elsewhere classified (10) Non-pressure chronic ulcer of other part of left foot with fat layer exposed: CODE(S): L97.522 - Non-pressure chronic ulcer of other part of left foot with fat layer exposed (11) Non-pressure chronic ulcer of right lower leg, limited to breakdown of skin: CODE(S): L97.911 - Non-pressure chronic ulcer of unspecified part of right lower leg limited to breakdown of skin (12) Chronic ulcer of right lower extremity with fat layer exposed: CODE(S): L97.912 - Non-pressure chronic ulcer of unspecified part of right lower leg with fat layer exposed PLAN: Patient seen and examined. Debridement was performed to the left foot as noted in the clinical nursing panel. Debridement was also performed to the new right lower extremity ulcers as noted in the clinical nursing panel. Verbal consent was obtained and she tolerated this well. She is noted to have healed all ulcerations except left sub first metatarsal head and lateral left foot. She continues to use the offloading inserts with significant improvement noted since beginning use however recently removed the left insole. Compliance was discussed. We discussed at length today the other more successful ways to offload wounds however she is not able to safely perform these due to her walking difficulty, balance, fall risk status. We discussed the benefits and risks of each opportunity. To continue wearing sneaker with offloading modification made recently. She is noted to use tubigrip. Discussed previously that the swelling may be cardiac in origin. She continues to follow-up with director of partner marketing as recommended previously. She had prior infections and was treated with infectious disease. There are no signs infection noted today. Patient was previously treated with linezolid and Flagyl per Dr. Clements. Patient cultures from 01/19/2021 demonstrated Staphylococcus epididymis and anaerobic cocci. no local signs of infection noted today. This has been completed. It is also noted that she was already treated for osteomyelitis. Discussed with patient going a more palliative wound care route with her chronic nonhealing ulcerations especially given significant comorbidities and treatment of healing with medications. She elects to return biweekly. LEAS 06/30/20 showed moderate distal small vessel disease bilaterally at the digits. The left foot was noted to have biphasic pulses with CRUZ of 1.27 and TBI of 0.37. The left PT was noncompressible. The right foot PT and DP were noncompressible and TBI of 0.4 with triphasic and biphasic pulses. Patient had procedure with Dr Oseguera 07/21/20. Patient reports that the procedure went well. Dr. Oseguera is considering additional angiogram with intervention at this time. We discussed this at length today as she has put this process on hold to seek intervention for her back pain. I advised the patient to call and schedule and proceed forward with recommendations issue will likely not heal the ulcers with limited lower extremity blood flow and ongoing delays in treatment. Discussed importance of non-smoking, blood sugar control, weight management, offloading, proper nutrition, and hygiene to optimize healing potential. I offered her a home health referral to aid with hygiene and showering. This is imperative to keep the ulcer sites noninfected and to reduce stasis tissue buildup. She does not want to proceed at this time however has agreed to consider this as an option. Discussed that her chronic steroid use for her RA can impact wound healing as well as impact her body's ability to mount an immune response. We discussed the option of transitioning her back to her medications under the management of her photograph finisher. I do not think this would benefit her wound healing progression however she understands if she is having flareups and needs to return to the medication that is okay to proceed forward with more of a palliative type wound care plan. Her note will be faxed to [facility] rheumatology. She sees Dr. Tovar. Her tentative plan is to progress back to methotrexate so she can stop her prednisone. Recent medical records reviewed. Discussed the importance of proper nutrition including getting enough protein in her diet to help with healing. Bone biopsy 01/05/2021 results of the first metatarsal head on the left foot confirm diagnosis of osteomyelitis infection. Previously obtained MRI also showed osteomyelitis. Patient has undergone multiple rounds of antibiotic treatments per Dr. Clements in infectious disease for this. Surgical treatment options were also discussed with patient but it was decided that it was not worth the risk of potentially creating a larger wound that potentially more bacteria could then get into to infect the wound. Patient is a poor surgical candidate. Updated left foot x-ray ordered. Updated left foot x-ray did not demonstrate any progressive osseous destruction soft tissue emphysema or foreign body. She also has decreased bone density noted on this foot. Patient saw Dr. Steinberg for HBO evaluation. This was given prior to patient's recent heart attack and hospital admission. Patient will need to get cardiac clearance prior to being approved for HBO. This was not given at this time. We will potentially reconsider HBO therapy in the future if ever given cardiac clearance. We will hold off on this due to her recent fatigue symptoms. Encouraged protein rich diet and protein supplements. Discussed Vick supplementation. Patient is overall frail appearance with muscle atrophy noted. All questions answered. She is stable and will follow up in 2 weeks. Dressings: Continue wound care to foot ulcerations daily. To use Aquacel silver to subfirst metatarsal head ulcer site and hydrogel to other ulcers of bilateral lower extremities. To moisturize the legs and feet daily. Patient was given Tubigrip's for compression and edema control. To pad and protect abrasion and preulcerative area. This note was generated with [employer] dictation software. It may contain incorrect words, spelling, and punctuation that were not noted in checking the note before signing. The medical decision making level is low. There is noted low risk of morbidity after considering this treatment plan and diagnostic data. The problems addressed require a low medical decision making level which includes two or more minor problems, a stable chronic illness, or an acute uncomplicated illness or injury.
== END 2021-08-05 23:59 | disposition home or self-care (01) ==
LOC: WC 09:45
PROVIDERS: PCP Physician Assistant; Visit Provider Podiatrist
DX: L97.524 Non-pressure chronic ulcer of other part of left foot with necrosis of bone (principal); L97.522 Non-pressure chronic ulcer of other part of left foot with fat layer exposed; L97.912 Non-pressure chronic ulcer of unspecified part of right lower leg with fat layer exposed; M06.9 Rheumatoid arthritis, unspecified; M86.679 Other chronic osteomyelitis, unspecified ankle and foot; I73.9 Peripheral vascular disease, unspecified; S81.812A Laceration without foreign body, left lower leg, initial encounter; R26.2 Difficulty in walking, not elsewhere classified; M54.9 Dorsalgia, unspecified; L90.9 Atrophic disorder of skin, unspecified; T14.8XXD Other injury of unspecified body region, subsequent encounter
CPT/HCPCS: 11042; 97597

== ENCOUNTER 2021-08-25 10:00 | Outpatient (RCR) | payer MEDICARE, SELFPAY ==
[2021-08-06 00:29] VITALS: BP 144/43; PULSE 84; RESP 18; TEMP 36.8; BMI 18.6
[2021-08-11 09:57] VITALS: BP 163/88; PULSE 91; RESP 18; TEMP 36; BMI 18.6
--- NOTE | 2021-08-11 10:13 | WC ---
Pt states 07/28/21 hospitalized due to influenza and was hospitalized for 4 days and given Tamaflu. pt back home with home health services and physical therapy twice a week
--- NOTE | 2021-08-11 11:49 | HP.PCM_ITS ---
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 left foot ulcer right ankle and leg ulcers (new) Left upper arm skin tear History of Wound: Kylah is a 76-year-old female who was referred here for treatment bilateral feet ulcerations. Patient is noted to have significant fat pad atrophy likely secondary to her rheumatoid arthritis. Patient is on multiple medications for her rheumatoid arthritis which are impeding her wound healing. Patient is also prone to breakdown given lack of fat pad. Patient noted to have had MRIs which showed osteomyelitis and has been treated by Dr. Clements with antibiotic treatments. Patient is a poor surgical candidate given her poor healing status and multiple comorbidities. The patient has had vascular studies on 06/30/20 showed moderate distal small vessel disease bilaterally at the digits with some non compressible vessels. Patient saw her vascular surgeon, Dr. Oseguera, who did intervention on the patient on 07/21/20. Dr. Oseguera is considering additional angiogram with intervention. This exact plan is pending. She had MRI on 06/25/20 which showed osteomyelitis to left 1st metatarsal. 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 These are acknowledged to be possible inhibitors to wound healing. Patient noted to have painful feet due to her rheumatoid arthritis. Patient is also noted to have had recent heart attack and has been started on blood thinners for this. She offloads with Plastizote accommodative inserts in her shoes and slippers at home. She is a fall risk and was previously unable to wear surgical offloading shoes or boots. He also put a hole in the side of her left shoe to offload her ulcer site and she reports that this went well after she increased the size of the hole on her own at home this past week. She denies fever, chills, nausea, vomiting. She relates she has some recent back pain with excessive arthritis identified by a recent orthopedic physician evaluation. She is also being referred to pain management. She reports she is placing all vascular intervention on hold and had some questions about this today. She is not aware of her new right ankle and leg ulcers. She denies injuries. She also relates she is unable to take a shower because she cannot get into her bathtub nor does she have adequate assistance at home. She is initially apprehensive about agreeing to home health assistance. July 28 patient's was helping her move from one room to another and just grabbing her arm twisting her skin a little bit developed a skin tear because her skin so thin. Patient has home health care at home and they have been using Adaptic over top. [facility] Medical History History of arteriography Home Medications Benazepril Hcl [Lotensin] 20 mg PO DAILY 12/21/16 [History Last Taken 07/21/20] conjugated estrogens [Premarin] 1 dose VAGINAL DAILY 12/21/16 [History Last Taken Unknown] cyclosporine [Restasis] 2 drp OP DAILY 12/21/16 [History Last Taken Unknown] denosumab [Prolia] 60 mg SQ QMONTH 12/21/16 [History Last Taken Unknown] folic acid 1 mg PO DAILY@0800 12/21/16 [History Last Taken 07/21/20] hydroxychloroquine 200 mg PO DAILYCM 12/21/16 [History Last Taken 07/21/20] methotrexate sodium (PF) 25 mg IJ QWEEK 12/21/16 [History Last Taken Unknown] prednisone 12 mg PO DAILY 12/21/16 [History Last Taken 07/21/20] tramadol 50 mg PO Q4H PRN PRN 12/21/16 [History Last Taken Unknown] levothyroxine 88 mcg PO DAILY 06/29/17 [History Last Taken 07/21/20] clopidogrel 75 mg PO DAILY 07/28/20 [History Last Taken Unknown] aspirin [Aspirin Low-Strength] 81 mg PO DAILY 10/13/20 [History Last Taken Unknown] atorvastatin 80 mg PO DAILY 10/13/20 [History Last Taken Unknown] metoprolol succinate 50 mg PO DAILY 10/13/20 [History Last Taken Unknown] pantoprazole 40 mg PO DAILY 10/13/20 [History Last Taken Unknown] ticagrelor [Brilinta] 90 mg PO BID 10/13/20 [History Last Taken Unknown] linezolid 600 mg PO BID 02/02/21 [History Last Taken Unknown] metronidazole 500 mg PO Q12H 02/02/21 [History Last Taken Unknown] levofloxacin 250 mg PO DAILY 10/12/21 [History Last Taken Unknown] Allergy/AdvReac Type Severity Reaction Status Date / Time No Known Allergies Allergy Verified 05/29/20 10:46 Family History (Updated 09/22/20 @ 13:[address] Jesus Manuel Steinberg MD) Other Scleroderma Valvular heart disease Surgical History (Updated 09/22/20 @ 13:[address] Jesus Manuel Steinberg MD) History of thyroidectomy Hx of parathyroidectomy Social History (Updated 09/22/20 @ 13:[address] Jesus Manuel Steinberg MD) household members: spouse number of children: 2 current gender identity: female Smoking Status: Never smoker alcohol intake: never substance use type: does not use ROS Constitutional Constitutional: Reports systems reviewed and no addt'l complaints, except as documented Integumentary Integumentary: Reports skin pain and wounds Vital Signs Vital Signs Vital Signs: 08/11/21 09:57 Temperature 96.8 F L Temperature Source Temporal Pulse Rate 91 Respiratory Rate 18 Blood Pressure 163/88 H Blood Pressure Mean 113 Blood Pressure Source Monitor Blood Pressure Position Sitting Blood Pressure Location Right Arm Weight Weight: 102 lb Body Mass Index (BMI) 18.6 Physical Exam Const oriented x3 General Appearance: cooperative Exam Limitations: no limitations Resp normal respiratory effort Effort and Inspection: able to speak in complete sentences Auscultation: clear to auscultation bilaterally Cardio regular rate and regular rhythm Palpation: normal PMI Rate: regular rate Rhythm: regular rhythm Extremity normal to inspection General Extremity: normal exam except as noted Skin Skin Narrative: Left upper arm rather large avulsion laceration with no signs of infection Debridement Note Debridement Note Wound debrided: Left upper arm avulsion laceration Type of Debridement: Excisional debridement Anesthesia Used: 5% Lidocaine Gel Depth: Down to and including healthy tissue Percentage of wound debrided: 100 Instrument Used: 7mm curette and - (Scissors) Tissue Removed: Devitalized tissue and fibrin Severity: Limited To Skin Breakdown Amount of bleeding with debridement: Mild Bleeding Controlled with: Compression and gauze Patient tolerated procedure: Patient tolerated procedure well Post-Debridement Measurements and Additional Note: Post-Debridement Measurements/Treatment WC - Nurse 1 - General Ulcer Assessment Start: 08/11/21 09:56 Freq: Status: Active Protocol: GEORGE Activity Type Activity Date Activity User E-Sign Co-Sign Detail Recorded Client Recorded Date Recorded By Document 08/11/21 09:57 RB [id number] 08/11/21 10:17 RB 08/11/21 09:57 WC - Today's Visit Information Type of service 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 ) Arrival Mode Ambulatory Transfer Assistance None Patient Identification Verified (Name & Yes ) Patient Requires Transmission-Based No Precautions Height and Weight Body Mass Index (BMI) 18.6 BMI Classification Normal Vital Signs Temperature (97.8 F-99.1 F) 96.8 F L Temperature Source Temporal Pulse Rate (60-100) 91 Pulse Location Monitor Respiratory Rate (12-18) 18 Respiratory rate source Observation Blood Pressure (90/60-120/80) 163/88 H Blood Pressure Mean 113 Source Monitor Position Sitting Blood Pressure Location Right Arm History Since Last Visit- (Skip if this is Patient's initial visit) Have you changed medications since your No last visit? Any new allergies or adverse reactions No Had a fall/change in ADL's that may Yes increase risk of falls Signs or symptoms of abuse and/or No neglect since last visit Have you been in the hospital since your Yes last visit? Has dressing in place as prescribed Yes Has compression in place as prescribed No Has offloadiing in place as prescribed No Experienced any changes in pain level or No management Left Footwear Slipper Right Footwear Slipper Pain Scale: 0-10 Numeric Is Patient Pain Free? Yes lower back -Description Aching -Intensity 8 -Duration (hours) Acute -Pain Behavior Guarding -Pain Aggravating Factors Changing Position, Exercise/ Activity -Alleviating Factors/Interventions Medication -Effectiveness of Alleviating Factor/ Moderately Intervention effective WC - Nurse 1 - General Ulcer Measurement Start: 08/11/21 09:56 Freq: Status: Active Protocol: Activity Type Activity Date Activity User E-Sign Co-Sign Detail Recorded Client Recorded Date Recorded By Document 08/11/21 09:57 RB [id number] 08/11/21 10:17 RB Edit Result 08/11/21 09:57 RB (1) [id number] 08/11/21 10:28 DL (1) #14 L Forearm - Current Size (cm) - Length => 4 - Current Size (cm) - Width => 2 - Current Size (cm) - Depth => 0.1 - Total Square Cm => 8 - Photo Taken => Yes - Classification - Thickness => Full Thickness => without Exposed => Support Structure - Exudate Amt => Medium - Exudate Type => Serosanguineous - Wound Margin => Distinct, Outline => Attached - Granulation Amt => Medium (34-66%) - Granulation Quality => Red - Necrosis Amt => Medium (34-66%) - Necrotic Tissue Type => Adherent Slough - Structure Exposed => N/A - Texture (Анна-wound Skin Appearance) => Friable - Moisture (Анна-wound Skin Appearance) => No Abnormality - Color (Анна-wound Skin Appearance) => Ecchymosis - Temperature (Анна-wound Skin => No Abnormality (Pt Appearance) => Warm) - Tenderness on Palpation (Анна-wound => Yes Skin Appearance) - Ulcer Cleansing => Soap and Water - Foul Odor after Cleansing => No - Anesthetic Used => 4% Lidocaine => Solution 08/11/21 09:57 Wound Center Nurse 1 #14 L Forearm -Current Size (cm) - Length 4 -Current Size (cm) - Width 2 -Current Size (cm) - Depth 0.1 -Total Square Cm 8 -Photo Taken Yes -Classification - Thickness Full Thickness without Exposed Support Structure -Exudate Amt Medium -Exudate Type Serosanguineous -Wound Margin Distinct, Outline Attached -Granulation Amt Medium (34-66%) -Granulation Quality Red -Necrosis Amt Medium (34-66%) -Necrotic Tissue Type Adherent Slough -Structure Exposed N/A -Texture (Анна-wound Skin Appearance) Friable -Moisture (Анна-wound Skin Appearance) No Abnormality -Color (Анна-wound Skin Appearance) Ecchymosis -Temperature (Анна-wound Skin No Abnormality Appearance) (Pt Warm) -Tenderness on Palpation (Анна-wound Yes Skin Appearance) -Ulcer Cleansing Soap and Water -Foul Odor after Cleansing No -Anesthetic Used 4% Lidocaine Solution 13-right parks cluster -Combined with other wound No -Current Size (cm) - Length 2.7 -Current Size (cm) - Width 0.6 -Current Size (cm) - Depth 0.1 -Total Square Cm 1.62 -Tunneling No -Undermining/Tunneling No -Circular Undermining No -Exudate Amt Medium -Exudate Type Serosanguineous -Wound Margin Distinct, Outline Attached -Granulation Amt Medium (34-66%) -Granulation Quality [place] -Slough/Fibrin Yes -Necrosis Amt Large (67-100%) -Necrotic Tissue Type Adherent Slough -Structure Exposed N/A -Texture (Анна-wound Skin Appearance) Assessed, Localized Edema -Moisture (Анна-wound Skin Appearance) Assessed -Temperature (Анна-wound Skin No Abnormality Appearance) (Pt Warm) -Tenderness on Palpation (Анна-wound No Skin Appearance) -Ulcer Cleansing Wound Cleanser -Foul Odor after Cleansing No -Anesthetic Used 4% Lidocaine Solution 12. R lateral ankle -Combined with other wound No -Current Size (cm) - Length 0.6 -Current Size (cm) - Width 0.8 -Current Size (cm) - Depth 0.3 -Total Square Cm 0.48 -Tunneling No -Undermining/Tunneling No -Circular Undermining No -Exudate Amt Medium -Exudate Type Serosanguineous -Wound Margin Distinct, Outline Attached -Granulation Amt Medium (34-66%) -Granulation Quality [place] -Slough/Fibrin Yes -Necrosis Amt Large (67-100%) -Necrotic Tissue Type Adherent Slough -Structure Exposed N/A -Texture (Анна-wound Skin Appearance) Assessed -Moisture (Анна-wound Skin Appearance) Assessed -Color (Анна-wound Skin Appearance) Assessed -Temperature (Анна-wound Skin No Abnormality Appearance) (Pt Warm) -Tenderness on Palpation (Анна-wound No Skin Appearance) -Ulcer Cleansing Wound Cleanser -Foul Odor after Cleansing No -Anesthetic Used 4% Lidocaine Solution 10-left lateral foot 5th methead -Combined with other wound No -Current Size (cm) - Length 0.3 -Current Size (cm) - Width 0.3 -Current Size (cm) - Depth 0.2 -Total Square Cm 0.09 -Tunneling No -Undermining/Tunneling No -Circular Undermining No -Exudate Amt Medium -Exudate Type Serosanguineous -Wound Margin Thickened & Rolled Under -Granulation Amt Medium (34-66%) -Granulation Quality [place] -Slough/Fibrin Yes -Necrosis Amt Medium (34-66%) -Necrotic Tissue Type Adherent Slough -Structure Exposed Bone -Texture (Анна-wound Skin Appearance) Assessed, Localized Edema -Moisture (Анна-wound Skin Appearance) Assessed -Color (Анна-wound Skin Appearance) Assessed -Temperature (Анна-wound Skin No Abnormality Appearance) (Pt Warm) -Tenderness on Palpation (Анна-wound No Skin Appearance) -Ulcer Cleansing Wound Cleanser -Foul Odor after Cleansing No -Anesthetic Used 4% Lidocaine Solution #9 LEFT MEDIAL FOOT -Combined with other wound No -Current Size (cm) - Length 0.6 -Current Size (cm) - Width 0.6 -Current Size (cm) - Depth 0.3 -Total Square Cm 0.36 -Tunneling No -Undermining/Tunneling No -Circular Undermining No -Exudate Amt Medium -Exudate Type Serosanguineous -Wound Margin Thickened & Rolled Under -Granulation Amt Medium (34-66%) -Granulation Quality [place] -Slough/Fibrin Yes -Necrosis Amt Medium (34-66%) -Necrotic Tissue Type Adherent Slough -Structure Exposed Bone -Texture (Анна-wound Skin Appearance) Assessed, Localized Edema -Moisture (Анна-wound Skin Appearance) Assessed -Color (Анна-wound Skin Appearance) Assessed -Temperature (Анна-wound Skin No Abnormality Appearance) (Pt Warm) -Ulcer Cleansing Wound Cleanser -Foul Odor after Cleansing No -Anesthetic Used 4% Lidocaine Solution 08/11/21 10:13 Wound Center by Cathie Weber Pt [facility] 07/28/21 hospitalized due to influenza and was hospitalized for 4 days and given Tamaflu. pt back home with home health services and physical therapy twice a week Initialized on 08/11/21 10:13 - END OF NOTE WC - Nurse 2 - General Ulcer CM Notes Start: 08/11/21 09:56 Freq: Status: Active Protocol: Activity Type Activity Date Activity User E-Sign Co-Sign Detail Recorded Client Recorded Date Recorded By Document 08/11/21 10:26 [id number] 08/11/21 10:33 Document 08/11/21 10:48 MW [id number] 08/11/21 10:53 MW 08/11/21 08/11/21 10:26 10:48 Wound Center Nurse 2 15-right 1st metatarsal head -Time 10:33 -Correct Patient Yes -Correct Side, Site, Position Yes -Correct Procedure Yes -Procedure Performed Yes -Type of Procedure Debridement -Clinical Debridement Subcutaneous -Tissue Removed Subcutaneous -Post Debridement (cm) - Length 0.2 -Post Debridement (cm) - Width 0.2 -Post Debridement (cm) - Depth 0.3 -Total Square (Post) (cm) 0.04 -Area of Debridement (cm) - Length 0.2 -Area of Debridement (cm) - Width 0.2 -Total Square (Area) (cm) 0.04 -Tunneling No -Undermining/Tunneling No -Circular Undermining No -Wound/Ulcer Outcome Not Healed -Ulcer Cleansing Rinsed/ Irrigated with Saline -Foul Odor after Cleansing No -Bioengineered Tissue No -Bleeding Controlled with Pressure -Treatment Response Procedure Tolerated Well -Offloading No -Debridement - Subq, 1st 20sq cm No #14 L Forearm -Time 10:49 -Correct Patient Yes -Correct Side, Site, Position Yes -Correct Procedure Yes -Procedure Performed Yes -Type of Procedure Debridement -Clinical Debridement Subcutaneous -Tissue Removed Subcutaneous -Post Debridement (cm) - Length 7.0 -Post Debridement (cm) - Width 3.5 -Post Debridement (cm) - Depth 0.1 -Total Square (Post) (cm) 24.50 -Area of Debridement (cm) - Length 7.0 -Area of Debridement (cm) - Width 3.5 -Total Square (Area) (cm) 24.50 -Tunneling No -Undermining/Tunneling No -Circular Undermining No -Wound/Ulcer Outcome Not Healed -Ulcer Cleansing Rinsed/ Irrigated with Saline -Foul Odor after Cleansing Yes, Due to Product Use -Bioengineered Tissue No -Bleeding Controlled with Pressure -Treatment Response Procedure Tolerated Well -Debridement - Subq, 1st 20sq cm Yes -Debridement, SubQ, ea addt'l 20sq cm 1 or part thereof 13-right parks cluster -Time 10:26 -Correct Patient Yes -Correct Side, Site, Position Yes -Correct Procedure Yes -Procedure Performed Yes -Type of Procedure Debridement -Clinical Debridement Subcutaneous -Tissue Removed Subcutaneous -Post Debridement (cm) - Length 2.8 -Post Debridement (cm) - Width 0.6 -Post Debridement (cm) - Depth 0.1 -Total Square (Post) (cm) 1.68 -Area of Debridement (cm) - Length 2.8 -Area of Debridement (cm) - Width 0.6 -Total Square (Area) (cm) 1.68 -Tunneling No -Undermining/Tunneling No -Circular Undermining No -Wound/Ulcer Outcome Not Healed -Ulcer Cleansing Rinsed/ Irrigated with Saline -Foul Odor after Cleansing No -Bioengineered Tissue No -Bleeding Controlled with Pressure -Treatment Response Procedure Tolerated Well -Offloading No -Debridement - Subq, 1st 20sq cm No 12. R lateral ankle -Time 10:26 -Correct Patient Yes -Correct Side, Site, Position Yes -Correct Procedure Yes -Procedure Performed Yes -Type of Procedure Debridement -Clinical Debridement Subcutaneous -Tissue Removed Subcutaneous -Post Debridement (cm) - Length 0.7 -Post Debridement (cm) - Width 0.8 -Post Debridement (cm) - Depth 0.3 -Total Square (Post) (cm) 0.56 -Area of Debridement (cm) - Length 0.7 -Area of Debridement (cm) - Width 0.8 -Total Square (Area) (cm) 0.56 -Tunneling No -Undermining/Tunneling No -Circular Undermining No -Wound/Ulcer Outcome Not Healed -Ulcer Cleansing Rinsed/ Irrigated with Saline -Foul Odor after Cleansing No -Bioengineered Tissue No -Bleeding Controlled with Pressure -Treatment Response Procedure Tolerated Well -Offloading No -Debridement - Subq, 20sq cm No 10-left lateral foot 5th methead -Time 10:27 -Correct Patient Yes -Correct Side, Site, Position Yes -Correct Procedure Yes -Procedure Performed Yes -Type of Procedure Debridement -Clinical Debridement Subcutaneous -Tissue Removed Subcutaneous -Post Debridement (cm) - Length 0.3 -Post Debridement (cm) - Width 0.4 -Post Debridement (cm) - Depth 0.2 -Total Square (Post) (cm) 0.12 -Area of Debridement (cm) - Length 0.3 -Area of Debridement (cm) - Width 0.4 -Total Square (Area) (cm) 0.12 -Tunneling No -Undermining/Tunneling No -Circular Undermining No -Wound/Ulcer Outcome Not Healed -Ulcer Cleansing Rinsed/ Irrigated with Saline -Foul Odor after Cleansing No -Bioengineered Tissue No -Bleeding Controlled with Pressure -Treatment Response Procedure Tolerated Well -Offloading No -Debridement - Subq, 1st 20sq cm No #9 LEFT MEDIAL FOOT -Time 10:28 -Correct Patient Yes -Correct Side, Site, Position Yes -Correct Procedure Yes -Procedure Performed Yes -Type of Procedure Debridement -Clinical Debridement Subcutaneous -Tissue Removed Subcutaneous -Post Debridement (cm) - Length 0.6 -Post Debridement (cm) - Width 0.7 -Post Debridement (cm) - Depth 0.3 -Total Square (Post) (cm) 0.42 -Area of Debridement (cm) - Length 0.6 -Area of Debridement (cm) - Width 0.7 -Total Square (Area) (cm) 0.42 -Tunneling No -Undermining/Tunneling No -Circular Undermining No -Wound/Ulcer Outcome Not Healed -Ulcer Cleansing Rinsed/ Irrigated with Saline -Foul Odor after Cleansing No -Bioengineered Tissue No -Bleeding Controlled with Pressure -Treatment Response Procedure Tolerated Well -Offloading No -Debridement - Subq, 1st 20sq cm Yes Pain Scale: 0-10 Numeric Is Patient Pain Free? Yes Yes WC - Nurse 3 - General Ulcer D/C NN Start: 08/11/21 09:56 Freq: Status: Active Protocol: Activity Type Activity Date Activity User E-Sign Co-Sign Detail Recorded Client Recorded Date Recorded By Document 08/11/21 11:13 DL [id number] 08/11/21 11:15 DL 08/11/21 11:13 Wound Care Nurse 3 15-right 1st metatarsal head -Ulcer Cleansing Soap and Water -Foul Odor after Cleansing No -Primary Dressing Applied C Hydrogel ($) -Primary Dressing Covered/Secured with Dry Gauze & Roll Gauze, Secured with Tape #14 L Forearm -Ulcer Cleansing Soap and Water -Foul Odor after Cleansing No -Other Dressing Xeroform -Primary Dressing Covered/Secured with Dry Gauze & Roll Gauze, Secured with Tape 13-right parks cluster -Ulcer Cleansing Soap and Water -Foul Odor after Cleansing No -Other Dressing hydrogel -Primary Dressing Covered/Secured with Dry Gauze & Roll Gauze, Secured with Tape 12. R lateral ankle -Ulcer Cleansing Soap and Water -Foul Odor after Cleansing No -Other Dressing hydrogel -Primary Dressing Covered/Secured with Dry Gauze & Roll Gauze, Secured with Tape 10-left lateral foot 5th methead -Ulcer Cleansing Soap and Water -Foul Odor after Cleansing No -Other Dressing hydrogel -Primary Dressing Covered/Secured with Dry Gauze & Roll Gauze, Secured with Tape #9 LEFT MEDIAL FOOT -Ulcer Cleansing Soap and Water -Foul Odor after Cleansing No -Primary Dressing Applied Aquacel AG 2x2 -Primary Dressing Covered/Secured with Dry Gauze,Dry Gauze & Roll Gauze,Secured with Tape -Aquacel AG 2x2 1 Treatment Response Procedure Tolerated Well Pain Scale: 0-10 Numeric Is Patient Pain Free? Yes WC - Visit Discharge Discharge Condition Stable Ambulatory Status Wheelchair Transportation Private [facility] Facility Type Home Health Orders Sent Yes Assessment/Plan Assessment/Plan (1) Skin tear of left upper arm without complication: CODE(S): S41.112A - Laceration without foreign body of left upper arm, initial encounter QUALIFIERS: Encounter type: initial encounter Qualified Code(s): S41.112A - Laceration without foreign body of left upper arm, initial encounter PLAN: Wash area with antibacterial soap and apply Xeroform dressing to the area cover with Adaptic and gauze and Trevor every day Follow-up in 2 weeks (2) Steroid long-term use:
--- NOTE | 2021-08-11 12:14 | PN.PCM_ITS ---
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 left foot ulcer right ankle and leg ulcers new right foot ulcer Left upper arm skin tear History of Wound: Kylah is a 76-year-old female who was referred here for treatment bilateral lower extremity ulcerations. Patient is noted to have significant fat pad atrophy likely secondary to her rheumatoid arthritis. Patient is on multiple medications for her rheumatoid arthritis which are impeding her wound healing. Patient is also prone to breakdown given lack of fat pad. Patient noted to have had MRIs which showed osteomyelitis and has been treated by Dr. Clements with antibiotic treatments. Patient is a poor surgical candidate given her poor healing status and multiple comorbidities. The patient has had vascular studies on 06/30/20 showed moderate distal small vessel disease bilaterally at the digits with some non compressible vessels. Patient saw her vascular surgeon, Dr. Oseguera, who did intervention on the patient on 07/21/20. Dr. Oseguera is considering additional angiogram with intervention. This exact plan is pending and actually put on hold at this time per the patient to focus on her other medical conditions at this time. She had recent back pain exacerbation and also recently had a fall in which she was admitted to the hospital. She now has home health and physical therapy coming to the home for her assistance. Her was also recently diagnosed with cancer and all of this is very overwhelming for her at this time. The patient is noted to be a prior half-way user of prednisone and methotrexate for her rheumatoid arthritis. These are acknowledged to be possible inhibitors to wound healing. Patient noted to have painful feet due to her rheumatoid arthritis. Patient is also noted to have had recent heart attack and has been started on blood thinners for this. She offloads with Plastizote accommodative inserts in her shoes and slippers at home. She is a fall risk and was previously unable to wear surgical offloading shoes or boots. He also put a hole in the side of her left shoe to offload her ulcer site and she reports that this went well after she increased the size of the hole on her own at home this past week. She denies fever, chills, nausea, vomiting. She is unaware of her new right foot ulcer. She is also treated today for left arm skin tear with clinical nurse practitioner, Angie Hodge. Progress of Wound: All lower extremity ulcers are stable New right foot ulcer noted Objective Data Objective Data Vital Signs: Vital Signs Temp Pulse Resp BP 96.8 F L 91 18 163/88 H 08/11/21 09:57 08/11/21 09:57 08/11/21 09:57 08/11/21 09:57 Weight: 46.266 kg Body Mass Index (BMI) 18.6 Physical Exam Narrative Const alert and no apparent distress General Appearance: cooperative and comfortable Patient has overall frail appearance Extremity no calf tenderness, negative yasmine and baker sign No lower extremity edema General Extremity: tenderness to palpation palpable metatarsal heads. There is Significant fat pad atrophy noted with easily palpable metatarsal heads 1 through 5 bilaterally. Negative for clubbing or cyanosis or ecchymosis or erythema Vasc Peripheral Pulses: posterior tibial pulses absent and dorsalis pedis pulses present but diminished, normal capillary refill, no acute ischemic skin changes noted, cool temperature Skin General Skin Exam: dry flaky atrophic skin to entire bilateral lower extremities, absent hair growth noted; Negative for ecchymosis, eschar, pallor, rashes. Patient skin in general is in very poor condition especially since starting blood thinners. Her arms are noted to be extremely dark and discolored to her entire forearms. Wound Narrative: ulcers noted to plantar first metatarsal head left and lateral forefoot left. left subfirst metatarsal head ulceration. Bone continues to be exposed and is white and healthier in appearance-stable. Less serous drainage noted. No surrounding erythema or edema. No malodor, streaking, fluctuation, crepitus. Skin is atrophic and hairless. There is a lateral fifth metatarsal head ulcer that is fibrous and dry with exposed bone and without deep tissue necrosis or infection. There is significant amount of fat pad atrophy noted to bilateral feet secondary to patient's rheumatoid arthritis. There is noted minimal callus at previous ulceration sites. lateral right ankle ulcer is punctate with fibrous base that has subcutaneous tissue exposed. There is no probe to bone at this site however deep periosteal layer is suspected. There is also superficial new skin discontinuity with some hemorrhagic and partial dermal layer intact to the anterior mid leg. new from first metatarsal head with fibers base. Bilateral lower extremities with scale buildup secondary likely to edema and lack of hygiene; slightly improved this week. Neuro: Gait (Neuro): heel to toe. Guarded, slow, and unsteady Sensory Exam: extremities light-touch: Intact Debridement Note Debridement Note Wound debrided: R: leg, lat ankle, sub1st MTH. L: sub 1 and 5 Metatarsal head (MTH) Wound Grade/Stage: Type of Debridement: Excisional debridement Anesthesia Used: 4% Lidocaine Solution Depth: in the subcutaneous layer Percentage of wound debrided: 100 Instrument Used: #15 blade Tissue Removed: fibrous, devitalized subcutaneous, biofilm, slough Severity: Fat Layer Exposed Amount of bleeding with debridement: Mild Bleeding Controlled with: Pressure Patient tolerated procedure: Patient tolerated procedure well Post-Debridement Measurements and Additional Note: Post-Debridement Measurements/Treatment - Nurse 1 - General Ulcer Assessment Start: 08/11/21 09:56 Freq: Status: Active Protocol: GEORGE Activity Type Activity Date Activity User E-Sign Co-Sign Detail Recorded Client Recorded Date Recorded By Document 08/11/21 09:57 RB [id number] 08/11/21 10:17 RB 08/11/21 09:57 - Today's Visit Information Type of service Follow-up Visit (Physician/ELEVATOR OPERATOR FREIGHT ) Arrival Mode Ambulatory Transfer Assistance None Patient Identification Verified (Name & Yes ) Patient Requires Transmission-Based No Precautions Height and Weight Body Mass Index (BMI) 18.6 BMI Classification Normal Vital Signs Temperature (97.8 F-99.1 F) 96.8 F L Temperature Source Temporal Pulse Rate (60-100) 91 Pulse Location Monitor Respiratory Rate (12-18) 18 Respiratory rate source Observation Blood Pressure (90/60-120/80) 163/88 H Blood Pressure Mean (mm Hg) 113 Source Monitor Position Sitting Blood Pressure Location Right Arm History Since Last Visit- (Skip if this is Patient's initial visit) Have you changed medications since your No last visit? Any new allergies or adverse reactions No Had a fall/change in ADL's that may Yes increase risk of falls Signs or symptoms of abuse and/or No neglect since last visit Have you been in the hospital since your Yes last visit? Has dressing in place as prescribed Yes Has compression in place as prescribed No Has offloadiing in place as prescribed No Experienced any changes in pain level or No management Left Footwear Slipper Right Footwear Slipper Pain Scale: 0-10 Numeric Is Patient Pain Free? Yes lower back -Description Aching -Intensity 8 -Duration (hours) Acute -Pain Behavior Guarding -Pain Aggravating Factors Changing Position, Exercise/ Activity -Alleviating Factors/Interventions Medication -Effectiveness of Alleviating Factor/ Moderately Intervention effective WC - Nurse 1 - General Ulcer Measurement Start: 08/11/21 09:56 Freq: Status: Active Protocol: Activity Type Activity Date Activity User E-Sign Co-Sign Detail Recorded Client Recorded Date Recorded By Document 08/11/21 09:57 RB [id number] 08/11/21 10:17 RB Edit Result 08/11/21 09:57 RB (1) [id number] 08/11/21 10:28 DL (1) #14 L Forearm - Current Size (cm) - Length => 4 - Current Size (cm) - Width => 2 - Current Size (cm) - Depth => 0.1 - Total Square Cm => 8 - Photo Taken => Yes - Classification - Thickness => Full Thickness => without Exposed => Support Structure - Exudate Amt => Medium - Exudate Type => Serosanguineous - Wound Margin => Distinct, Outline => Attached - Granulation Amt => Medium (34-66%) - Granulation Quality => Red - Necrosis Amt => Medium (34-66%) - Necrotic Tissue Type => Adherent Slough - Structure Exposed => N/A - Texture (Анна-wound Skin Appearance) => Friable - Moisture (Анна-wound Skin Appearance) => No Abnormality - Color (Анна-wound Skin Appearance) => Ecchymosis - Temperature (Анна-wound Skin => No Abnormality (Pt Appearance) => Warm) - Tenderness on Palpation (Анна-wound => Yes Skin Appearance) - Ulcer Cleansing => Soap and Water - Foul Odor after Cleansing => No - Anesthetic Used => 4% Lidocaine => Solution 08/11/21 09:57 Wound Center Nurse 1 #14 L Forearm -Current Size (cm) - Length 4 -Current Size (cm) - Width 2 -Current Size (cm) - Depth 0.1 -Total Square Cm 8 -Photo Taken Yes -Classification - Thickness Full Thickness without Exposed Support Structure -Exudate Amt Medium -Exudate Type Serosanguineous -Wound Margin Distinct, Outline Attached -Granulation Amt Medium (34-66%) -Granulation Quality Red -Necrosis Amt Medium (34-66%) -Necrotic Tissue Type Adherent Slough -Structure Exposed N/A -Texture (Анна-wound Skin Appearance) Friable -Moisture (Анна-wound Skin Appearance) No Abnormality -Color (Анна-wound Skin Appearance) Ecchymosis -Temperature (Анна-wound Skin No Abnormality Appearance) (Pt Warm) -Tenderness on Palpation (Анна-wound Yes Skin Appearance) -Ulcer Cleansing Soap and Water -Foul Odor after Cleansing No -Anesthetic Used 4% Lidocaine Solution 13-right parks cluster -Combined with other wound No -Current Size (cm) - Length 2.7 -Current Size (cm) - Width 0.6 -Current Size (cm) - Depth 0.1 -Total Square Cm 1.62 -Tunneling No -Undermining/Tunneling No -Circular Undermining No -Exudate Amt Medium -Exudate Type Serosanguineous -Wound Margin Distinct, Outline Attached -Granulation Amt Medium (34-66%) -Granulation Quality [place] -Slough/Fibrin Yes -Necrosis Amt Large (67-100%) -Necrotic Tissue Type Adherent Slough -Structure Exposed N/A -Texture (Анна-wound Skin Appearance) Assessed, Localized Edema -Moisture (Анна-wound Skin Appearance) Assessed -Temperature (Анна-wound Skin No Abnormality Appearance) (Pt Warm) -Tenderness on Palpation (Анна-wound No Skin Appearance) -Ulcer Cleansing Wound Cleanser -Foul Odor after Cleansing No -Anesthetic Used 4% Lidocaine Solution 12. R lateral ankle -Combined with other wound No -Current Size (cm) - Length 0.6 -Current Size (cm) - Width 0.8 -Current Size (cm) - Depth 0.3 -Total Square Cm 0.48 -Tunneling No -Undermining/Tunneling No -Circular Undermining No -Exudate Amt Medium -Exudate Type Serosanguineous -Wound Margin Distinct, Outline Attached -Granulation Amt Medium (34-66%) -Granulation Quality [place] -Slough/Fibrin Yes -Necrosis Amt Large (67-100%) -Necrotic Tissue Type Adherent Slough -Structure Exposed N/A -Texture (Анна-wound Skin Appearance) Assessed -Moisture (Анна-wound Skin Appearance) Assessed -Color (Анна-wound Skin Appearance) Assessed -Temperature (Анна-wound Skin No Abnormality Appearance) (Pt Warm) -Tenderness on Palpation (Анна-wound No Skin Appearance) -Ulcer Cleansing Wound Cleanser -Foul Odor after Cleansing No -Anesthetic Used 4% Lidocaine Solution 10-left lateral foot 5th methead -Combined with other wound No -Current Size (cm) - Length 0.3 -Current Size (cm) - Width 0.3 -Current Size (cm) - Depth 0.2 -Total Square Cm 0.09 -Tunneling No -Undermining/Tunneling No -Circular Undermining No -Exudate Amt Medium -Exudate Type Serosanguineous -Wound Margin Thickened & Rolled Under -Granulation Amt Medium (34-66%) -Granulation Quality [place] -Slough/Fibrin Yes -Necrosis Amt Medium (34-66%) -Necrotic Tissue Type Adherent Slough -Structure Exposed Bone -Texture (Анна-wound Skin Appearance) Assessed, Localized Edema -Moisture (Анна-wound Skin Appearance) Assessed -Color (Анна-wound Skin Appearance) Assessed -Temperature (Анна-wound Skin No Abnormality Appearance) (Pt Warm) -Tenderness on Palpation (Анна-wound No Skin Appearance) -Ulcer Cleansing Wound Cleanser -Foul Odor after Cleansing No -Anesthetic Used 4% Lidocaine Solution #9 LEFT MEDIAL FOOT -Combined with other wound No -Current Size (cm) - Length 0.6 -Current Size (cm) - Width 0.6 -Current Size (cm) - Depth 0.3 -Total Square Cm 0.36 -Tunneling No -Undermining/Tunneling No -Circular Undermining No -Exudate Amt Medium -Exudate Type Serosanguineous -Wound Margin Thickened & Rolled Under -Granulation Amt Medium (34-66%) -Granulation Quality [place] -Slough/Fibrin Yes -Necrosis Amt Medium (34-66%) -Necrotic Tissue Type Adherent Slough -Structure Exposed Bone -Texture (Анна-wound Skin Appearance) Assessed, Localized Edema -Moisture (Анна-wound Skin Appearance) Assessed -Color (Анна-wound Skin Appearance) Assessed -Temperature (Анна-wound Skin No Abnormality Appearance) (Pt Warm) -Ulcer Cleansing Wound Cleanser -Foul Odor after Cleansing No -Anesthetic Used 4% Lidocaine Solution 08/11/21 10:13 Wound Center by Cathie Weber Pt states 07/28/21 hospitalized due to influenza and was hospitalized for 4 days and given Tamaflu. pt back home with home health services and physical therapy twice a week Initialized on 08/11/21 10:13 - END OF NOTE WC - Nurse 2 - General Ulcer CM Notes Start: 08/11/21 09:56 Freq: Status: Active Protocol: Activity Type Activity Date Activity User E-Sign Co-Sign Detail Recorded Client Recorded Date Recorded By Document 08/11/21 10:26 [id number] 08/11/21 10:33 JF Document 08/11/21 10:48 [id number] 08/11/21 10:53 08/11/21 08/11/21 10:26 10:48 Wound Center Nurse 2 15-right 1st metatarsal head -Time 10:33 -Correct Patient Yes -Correct Side, Site, Position Yes -Correct Procedure Yes -Procedure Performed Yes -Type of Procedure Debridement -Clinical Debridement Subcutaneous -Tissue Removed Subcutaneous -Post Debridement (cm) - Length 0.2 -Post Debridement (cm) - Width 0.2 -Post Debridement (cm) - Depth 0.3 -Total Square (Post) (cm) 0.04 -Area of Debridement (cm) - Length 0.2 -Area of Debridement (cm) - Width 0.2 -Total Square (Area) (cm) 0.04 -Tunneling No -Undermining/Tunneling No -Circular Undermining No -Wound/Ulcer Outcome Not Healed -Ulcer Cleansing Rinsed/ Irrigated with Saline -Foul Odor after Cleansing No -Bioengineered Tissue No -Bleeding Controlled with Pressure -Treatment Response Procedure Tolerated Well -Offloading No -Debridement - Subq, 1st 20sq cm No #14 L Forearm -Time 10:49 -Correct Patient Yes -Correct Side, Site, Position Yes -Correct Procedure Yes -Procedure Performed Yes -Type of Procedure Debridement -Clinical Debridement Subcutaneous -Tissue Removed Subcutaneous -Post Debridement (cm) - Length 7.0 -Post Debridement (cm) - Width 3.5 -Post Debridement (cm) - Depth 0.1 -Total Square (Post) (cm) 24.50 -Area of Debridement (cm) - Length 7.0 -Area of Debridement (cm) - Width 3.5 -Total Square (Area) (cm) 24.50 -Tunneling No -Undermining/Tunneling No -Circular Undermining No -Wound/Ulcer Outcome Not Healed -Ulcer Cleansing Rinsed/ Irrigated with Saline -Foul Odor after Cleansing Yes, Due to Product Use -Bioengineered Tissue No -Bleeding Controlled with Pressure -Treatment Response Procedure Tolerated Well -Debridement - Subq, 1st 20sq cm Yes -Debridement, SubQ, ea addt'l 20sq cm 1 or part thereof 13-right parks cluster -Time 10:26 -Correct Patient Yes -Correct Side, Site, Position Yes -Correct Procedure Yes -Procedure Performed Yes -Type of Procedure Debridement -Clinical Debridement Subcutaneous -Tissue Removed Subcutaneous -Post Debridement (cm) - Length 2.8 -Post Debridement (cm) - Width 0.6 -Post Debridement (cm) - Depth 0.1 -Total Square (Post) (cm) 1.68 -Area of Debridement (cm) - Length 2.8 -Area of Debridement (cm) - Width 0.6 -Total Square (Area) (cm) 1.68 -Tunneling No -Undermining/Tunneling No -Circular Undermining No -Wound/Ulcer Outcome Not Healed -Ulcer Cleansing Rinsed/ Irrigated with Saline -Foul Odor after Cleansing No -Bioengineered Tissue No -Bleeding Controlled with Pressure -Treatment Response Procedure Tolerated Well -Offloading No -Debridement - Subq, 1st 20sq cm No 12. R lateral ankle -Time 10:26 -Correct Patient Yes -Correct Side, Site, Position Yes -Correct Procedure Yes -Procedure Performed Yes -Type of Procedure Debridement -Clinical Debridement Subcutaneous -Tissue Removed Subcutaneous -Post Debridement (cm) - Length 0.7 -Post Debridement (cm) - Width 0.8 -Post Debridement (cm) - Depth 0.3 -Total Square (Post) (cm) 0.56 -Area of Debridement (cm) - Length 0.7 -Area of Debridement (cm) - Width 0.8 -Total Square (Area) (cm) 0.56 -Tunneling No -Undermining/Tunneling No -Circular Undermining No -Wound/Ulcer Outcome Not Healed -Ulcer Cleansing Rinsed/ Irrigated with Saline -Foul Odor after Cleansing No -Bioengineered Tissue No -Bleeding Controlled with Pressure -Treatment Response Procedure Tolerated Well -Offloading No -Debridement - Subq, 1st 20sq cm No 10-left lateral foot 5th methead -Time 10:27 -Correct Patient Yes -Correct Side, Site, Position Yes -Correct Procedure Yes -Procedure Performed Yes -Type of Procedure Debridement -Clinical Debridement Subcutaneous -Tissue Removed Subcutaneous -Post Debridement (cm) - Length 0.3 -Post Debridement (cm) - Width 0.4 -Post Debridement (cm) - Depth 0.2 -Total Square (Post) (cm) 0.12 -Area of Debridement (cm) - Length 0.3 -Area of Debridement (cm) - Width 0.4 -Total Square (Area) (cm) 0.12 -Tunneling No -Undermining/Tunneling No -Circular Undermining No -Wound/Ulcer Outcome Not Healed -Ulcer Cleansing Rinsed/ Irrigated with Saline -Foul Odor after Cleansing No -Bioengineered Tissue No -Bleeding Controlled with Pressure -Treatment Response Procedure Tolerated Well -Offloading No -Debridement - Subq, 1st 20sq cm No #9 LEFT MEDIAL FOOT -Time 10:28 -Correct Patient Yes -Correct Side, Site, Position Yes -Correct Procedure Yes -Procedure Performed Yes -Type of Procedure Debridement -Clinical Debridement Subcutaneous -Tissue Removed Subcutaneous -Post Debridement (cm) - Length 0.6 -Post Debridement (cm) - Width 0.7 -Post Debridement (cm) - Depth 0.3 -Total Square (Post) (cm) 0.42 -Area of Debridement (cm) - Length 0.6 -Area of Debridement (cm) - Width 0.7 -Total Square (Area) (cm) 0.42 -Tunneling No -Undermining/Tunneling No -Circular Undermining No -Wound/Ulcer Outcome Not Healed -Ulcer Cleansing Rinsed/ Irrigated with Saline -Foul Odor after Cleansing No -Bioengineered Tissue No -Bleeding Controlled with Pressure -Treatment Response Procedure Tolerated Well -Offloading No -Debridement - Subq, 1st 20sq cm Yes Pain Scale: 0-10 Numeric Is Patient Pain Free? Yes Yes WC - Nurse 3 - General Ulcer D/C NN Start: 08/11/21 09:56 Freq: Status: Active Protocol: Activity Type Activity Date Activity User E-Sign Co-Sign Detail Recorded Client Recorded Date Recorded By Document 08/11/21 11:13 DL [id number] 08/11/21 11:15 DL 08/11/21 11:13 Wound Care Nurse 3 15-right 1st metatarsal head -Ulcer Cleansing Soap and Water -Foul Odor after Cleansing No -Primary Dressing Applied C Hydrogel ($) -Primary Dressing Covered/Secured with Dry Gauze & Roll Gauze, Secured with Tape #14 L Forearm -Ulcer Cleansing Soap and Water -Foul Odor after Cleansing No -Other Dressing Xeroform -Primary Dressing Covered/Secured with Dry Gauze & Roll Gauze, Secured with Tape 13-right parks cluster -Ulcer Cleansing Soap and Water -Foul Odor after Cleansing No -Other Dressing hydrogel -Primary Dressing Covered/Secured with Dry Gauze & Roll Gauze, Secured with Tape 12. R lateral ankle -Ulcer Cleansing Soap and Water -Foul Odor after Cleansing No -Other Dressing hydrogel -Primary Dressing Covered/Secured with Dry Gauze & Roll Gauze, Secured with Tape 10-left lateral foot 5th methead -Ulcer Cleansing Soap and Water -Foul Odor after Cleansing No -Other Dressing hydrogel -Primary Dressing Covered/Secured with Dry Gauze & Roll Gauze, Secured with Tape #9 LEFT MEDIAL FOOT -Ulcer Cleansing Soap and Water -Foul Odor after Cleansing No -Primary Dressing Applied Aquacel AG 2x2 -Primary Dressing Covered/Secured with Dry Gauze,Dry Gauze & Roll Gauze,Secured with Tape -Aquacel AG 2x2 1 Treatment Response Procedure Tolerated Well Pain Scale: 0-10 Numeric Is Patient Pain Free? Yes WC - Visit Discharge Discharge Condition Stable Ambulatory Status Wheelchair Transportation Private [facility] Facility Type Home Health Orders Sent Yes Assessment/Plan Assessment/Plan (1) Chronic ulcer of right foot with fat layer exposed: CODE(S): L97.512 - Non-pressure chronic ulcer of other part of right foot with fat layer exposed (2) Rheumatoid arthritis: CODE(S): M06.9 - Rheumatoid arthritis, unspecified QUALIFIERS: Rheumatoid arthritis location: foot Rheumatoid factor presence: unspecified presence Laterality: bilateral Qualified Code(s): M06.9 - Rheumatoid arthritis, unspecified (3) Fat pad atrophy of foot: CODE(S): L90.9 - Atrophic disorder of skin, unspecified (4) Osteomyelitis, chronic, ankle or foot: CODE(S): M86.679 - Other chronic osteomyelitis, unspecified ankle and foot (5) Delayed wound healing: CODE(S): T14.8XXD - Other injury of unspecified body region, subsequent encounter (6) Steroid long-term use: (7) PAD (peripheral artery disease): CODE(S): I73.9 - Peripheral vascular disease, unspecified (8) Chronic ulcer of left foot with necrosis of bone: CODE(S): L97.524 - Non-pressure chronic ulcer of other part of left foot with necrosis of bone (9) Skin tear of left lower leg without complication: CODE(S): S81.812A - Laceration without foreign body, left lower leg, initial encounter (10) Difficulty in walking, not elsewhere classified: CODE(S): R26.2 - Difficulty in walking, not elsewhere classified (11) Non-pressure chronic ulcer of other part of left foot with fat layer exposed: CODE(S): L97.522 - Non-pressure chronic ulcer of other part of left foot with fat layer exposed (12) Non-pressure chronic ulcer of right lower leg, limited to breakdown of skin: CODE(S): L97.911 - Non-pressure chronic ulcer of unspecified part of right lower leg limited to breakdown of skin (13) Chronic ulcer of right lower extremity with fat layer exposed: CODE(S): L97.912 - Non-pressure chronic ulcer of unspecified part of right lower leg with fat layer exposed PLAN: Patient seen and examined. Debridement was performed to the left foot as noted in the clinical nursing panel. Debridement was also performed to the right lower extremity ulcers and new right foot ulcer as noted in the clinical nursing panel. Verbal consent was obtained and she tolerated this well. She continues to use the offloading inserts with significant improvement noted since beginning use however recently removed the left insole. Compliance was discussed. We discussed at length today the other more successful ways to offload wounds however she is not able to safely perform these due to her walking difficulty, balance, fall risk status. We discussed the benefits and risks of each opportunity. To continue wearing sneaker with offloading modification made recently. She is noted to use tubigrip. Discussed previously that the swelling may be cardiac in origin. She continues to follow-up with van helper as recommended previously. She had prior infections and was treated with infectious disease. There are no signs infection noted today. Patient was previously treated with linezolid and Flagyl per Dr. Clements. Patient cultures from 01/19/2021 demonstrated Staphylococcus epididymis and anaerobic cocci. no local signs of infection noted today. This has been completed. It is also noted that she was already treated for osteomyelitis. Discussed with patient going a more palliative wound care route with her chronic nonhealing ulcerations especially given significant comorbidities and treatment of healing with medications. She elects to return biweekly. LEAS 06/30/20 showed moderate distal small vessel disease bilaterally at the digits. The left foot was noted to have biphasic pulses with CRUZ of 1.27 and TBI of 0.37. The left PT was noncompressible. The right foot PT and DP were noncompressible and TBI of 0.4 with triphasic and biphasic pulses. Patient had procedure with Dr Oseguera 07/21/20. Patient reports that the procedure went well. Dr. Oseguera is considering additional angiogram with intervention at this time. We discussed this at length today as she has put this process on hold to seek intervention for her back pain. I advised the patient to call and schedule and proceed forward with recommendations issue will likely not heal the ulcers with limited lower extremity blood flow and ongoing delays in treatment. She is very overwhelmed with all of her medical management and has placed a vascular plan on hold. She understands she is now on a palliative wound care plan. Discussed importance of non-smoking, blood sugar control, weight management, offloading, proper nutrition, and hygiene to optimize healing potential. She denies home health and physical therapy in her home on a routine basis and encouraged continued participation. Discussed that her chronic steroid use for her RA can impact wound healing as well as impact her body's ability to mount an immune response. We discussed the option of transitioning her back to her medications under the management of her er physician. I do not think this would benefit her wound healing progression however she understands if she is having flareups and needs to return to the medication that is okay to proceed forward with more of a palliative type wound care plan. Her note will be faxed to [facility] rheumatology. She sees Dr. Tovar. Her tentative plan is to progress back to methotrexate so she can stop her prednisone. Recent medical records reviewed. Discussed the importance of proper nutrition including getting enough protein in her diet to help with healing. Bone biopsy 01/05/2021 results of the first metatarsal head on the left foot confirm diagnosis of osteomyelitis infection. Previously obtained MRI also showed osteomyelitis. Patient has undergone multiple rounds of antibiotic treatments per Dr. Clements in infectious disease for this. Surgical treatment options were also discussed with patient but it was decided that it was not worth the risk of potentially creating a larger wound that potentially more bacteria could then get into to infect the wound. Patient is a poor surgical candidate. Updated left foot x-ray ordered. Updated left foot x-ray did not demonstrate any progressive osseous destruction soft tissue emphysema or foreign body. She also has decreased bone density noted on this foot. Patient previously saw Dr. Steinberg for HBO evaluation. This was given prior to patient's recent heart attack and hospital admission. Patient will need to get cardiac clearance prior to being approved for HBO. This was not given at this time. We will potentially reconsider HBO therapy in the future if ever given cardiac clearance. We will hold off on this due to her recent fatigue symptoms. Encouraged protein rich diet and protein supplements. Discussed Vick supplementation. Patient is overall frail appearance with muscle atrophy noted. All questions answered. She is stable and will follow up in 2 weeks. Dressings: Continue wound care to foot ulcerations daily. To use Aquacel silver to subfirst metatarsal head ulcer site and hydrogel to other ulcers of bilateral lower extremities. To moisturize the legs and feet daily. This note was generated with [employer] dictation software. It may contain incorrect words, spelling, and punctuation that were not noted in checking the note before signing. 21 minutes was spent on this encounter. This included face to face and non face to face care including preparing for the visit, reviewing the history, performing the exam, counseling and providing education to the patient, family, or caregiver, ordering medications/test/ procedures if indicated as documented, communicating with other healthcare providers, documenting information in the medical record, interpreting / sharing this information when indicated as documented, and care coordination.
[2021-08-25 09:50] VITALS: BP 148/60; PULSE 72; RESP 16; TEMP 35.8; BMI 18.6
--- NOTE | 2021-08-25 13:25 | PN.PCM_ITS ---
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 left foot ulcer right ankle and leg ulcers right foot ulcer Left upper arm skin tear- seen by another provide History of Wound: Kylah is a 76-year-old female who was referred here for treatment bilateral lower extremity ulcerations. Patient is noted to have significant fat pad atrophy likely secondary to her rheumatoid arthritis. Patient is on multiple medications for her rheumatoid arthritis which are impeding her wound healing. Patient is also prone to breakdown given lack of fat pad. Patient noted to have had MRIs which showed osteomyelitis and has been treated by Dr. Clements with antibiotic treatments. Patient is a poor surgical candidate given her poor healing status and multiple comorbidities. The patient has had vascular studies on 06/30/20 showed moderate distal small vessel disease bilaterally at the digits with some non compressible vessels. Patient saw her vascular surgeon, Dr. Oseguera, who did intervention on the patient on 07/21/20. Dr. Oseguera is considering additional angiogram with intervention. This exact plan is pending and actually put on hold at this time per the patient to focus on her other medical conditions at this time. She had recent back pain exacerbation and also recently had a fall in which she was admitted to the hospital. She now has home health and physical therapy coming to the home for her assistance. Her was also recently diagnosed with cancer and all of this is very overwhelming for her at this time. She has had some improvements with applying lotion to the legs however still is not showering. 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 These are acknowledged to be possible inhibitors to wound healing. Patient noted to have painful feet due to her rheumatoid arthritis. Patient is also noted to have had recent heart attack and has been started on blood thinners for this. She offloads with Plastizote accommodative inserts in her shoes and slippers at home. She is a fall risk and was previously unable to wear surgical offloading shoes or boots. This was at modified by cutting a hole in the shoe to offload the entire side of the foot. She denies fever, chills, nausea, vomiting. She is also treated today for left arm skin tear with clinical nurse practitioner, Angie Hodge. Progress of Wound: All lower extremity ulcers are stable Objective Data Objective Data Vital Signs: Vital Signs Temp Pulse Resp BP 96.5 F L 72 16 148/60 H 08/25/21 09:50 08/25/21 09:50 08/25/21 09:50 08/25/21 09:50 Oxygen Delivery Method Room Air Weight: 46.266 kg Body Mass Index (BMI) 18.6 Physical Exam Narrative Const alert and no apparent distress General Appearance: cooperative and comfortable okay Patient has overall frail appearance Extremity no calf tenderness, negative yasmine and baker sign No lower extremity edema General Extremity: tenderness to palpation palpable metatarsal heads. There is Significant fat pad atrophy noted with easily palpable metatarsal heads 1 through 5 bilaterally. Negative for clubbing or cyanosis or ecchymosis or erythema Vasc Peripheral Pulses: posterior tibial pulses absent and dorsalis pedis pulses present but diminished, normal capillary refill, no acute ischemic skin changes noted, cool temperature Skin General Skin Exam: dry flaky atrophic skin to entire bilateral lower extremities, absent hair growth noted; Negative for ecchymosis, eschar, pallor, rashes. Patient skin in general is in very poor condition especially since starting blood thinners. Her arms are noted to be extremely dark and discolored to her entire forearms. Wound Narrative: ulcers noted to plantar first metatarsal head left and lateral forefoot left. left subfirst metatarsal head ulceration. Bone continues to be exposed and is white and healthier in appearance-stable. Less serous drainage noted. No surrounding erythema or edema. No malodor, streaking, fluctuation, crepitus. Skin is atrophic and hairless. There is a lateral fifth metatarsal head ulcer that is fibrous and dry with exposed bone and without deep tissue necrosis or infection. There is significant amount of fat pad atrophy noted to bilateral feet secondary to patient's rheumatoid arthritis. There is noted minimal callus at previous ulceration sites. lateral right ankle ulcer is punctate with fibrous base that has subcutaneous tissue exposed. There is no probe to bone at this site however deep periosteal layer is suspected. There is also superficial new skin discontinuity with some hemorrhagic and partial dermal layer intact to the anterior mid leg. new from first metatarsal head with fibers base. Bilateral lower extremities with scale buildup secondary likely to edema and lack of hygiene; slightly improved this week. Neuro: Gait (Neuro): heel to toe. Guarded, slow, and unsteady Sensory Exam: extremities light-touch: Intact Debridement Note Debridement Note Wound debrided: Right: Leg, lateral ankle, plantar foot. Left: Lateral forefoot, subfirst Wound Grade/Stage: Type of Debridement: Excisional debridement Anesthesia Used: 4% Lidocaine Solution Depth: in the subcutaneous layer Percentage of wound debrided: 100 Instrument Used: #15 blade Tissue Removed: fibrous, devitalized subcutaneous, biofilm, slough Severity: Fat Layer Exposed Amount of bleeding with debridement: Mild Bleeding Controlled with: Pressure Patient tolerated procedure: Patient tolerated procedure well Post-Debridement Measurements and Additional Note: Post-Debridement Measurements/Treatment - Nurse 1 - General Ulcer Assessment Start: 08/11/21 09:56 Freq: Status: Active Protocol: JUDITHKIDOZJosephine Activity Type Activity Date Activity User E-Sign Co-Sign Detail Recorded Client Recorded Date Recorded By Document 08/11/21 09:57 RB [id number] 08/11/21 10:17 RB Document 08/25/21 09:50 [facility] [id number] 08/25/21 10:20 [facility] 08/11/21 08/25/21 09:57 09:50 - Today's Visit Information Type of service Follow-up Visit Follow-up Visit (Physician/CHEMICAL LABORATORY SCIENTIST (Physician/CHEMICAL LABORATORY SCIENTIST ) ) Arrival Mode Ambulatory Wheelchair Transfer Assistance None Other Transfer Assist (Other) 1 STAND BY Accompanied by WAITS IN [facility] Patient Identification Verified (Name & Yes Yes ) Patient Requires Transmission-Based No No Precautions Height and Weight Body Mass Index (BMI) 18.6 18.6 BMI Classification Normal Normal Vital Signs Temperature (97.8 F-99.1 F) 96.8 F L 96.5 F L Temperature Source Temporal Temporal Pulse Rate (60-100) 91 72 Pulse Location Monitor Monitor Respiratory Rate (12-18) 18 16 Respiratory rate source Observation Observation Oxygen Delivery Method Room Air Blood Pressure (90/60-120/80) 163/88 H 148/60 H Blood Pressure Mean (mm Hg) 113 89 Source Monitor Monitor Position Sitting Sitting Blood Pressure Location Right Arm Right Arm History Since Last Visit- (Skip if this is Patient's initial visit) Have you changed medications since your No No last visit? Any new allergies or adverse reactions No No Had a fall/change in ADL's that may Yes No increase risk of falls Signs or symptoms of abuse and/or No No neglect since last visit Have you been in the hospital since your Yes No last visit? Has dressing in place as prescribed Yes Yes Has compression in place as prescribed No N/A Has offloadiing in place as prescribed No N/A Experienced any changes in pain level or No No management Left Footwear Slipper Slipper Right Footwear Slipper Slipper Pain Scale: 0-10 Numeric Is Patient Pain Free? Yes Yes lower back -Description Aching -Intensity 8 -Duration (hours) Acute -Pain Behavior Guarding -Pain Aggravating Factors Changing Position, Exercise/ Activity -Alleviating Factors/Interventions Medication -Effectiveness of Alleviating Factor/ Moderately Intervention effective WC - Nurse 1 - General Ulcer Measurement Start: 08/11/21 09:56 Freq: Status: Active Protocol: Activity Type Activity Date Activity User E-Sign Co-Sign Detail Recorded Client Recorded Date Recorded By Document 08/11/21 09:57 RB [id number] 08/11/21 10:17 RB Edit Result 08/11/21 09:57 RB (1) [id number] 08/11/21 10:28 DL Document 08/25/21 09:50 BMF [id number] 08/25/21 10:20 BMF (1) #14 L Forearm - Current Size (cm) - Length => 4 - Current Size (cm) - Width => 2 - Current Size (cm) - Depth => 0.1 - Total Square Cm => 8 - Photo Taken => Yes - Classification - Thickness => Full Thickness => without Exposed => Support Structure - Exudate Amt => Medium - Exudate Type => Serosanguineous - Wound Margin => Distinct, Outline => Attached - Granulation Amt => Medium (34-66%) - Granulation Quality => Red - Necrosis Amt => Medium (34-66%) - Necrotic Tissue Type => Adherent Slough - Structure Exposed => N/A - Texture (Анна-wound Skin Appearance) => Friable - Moisture (Анна-wound Skin Appearance) => No Abnormality - Color (Анна-wound Skin Appearance) => Ecchymosis - Temperature (Анна-wound Skin => No Abnormality (Pt Appearance) => Warm) - Tenderness on Palpation (Анна-wound => Yes Skin Appearance) - Ulcer Cleansing => Soap and Water - Foul Odor after Cleansing => No - Anesthetic Used => 4% Lidocaine => Solution 08/11/21 08/25/21 09:57 09:50 Wound Center Nurse 1 15-right 1st metatarsal head -Combined with other wound No -Current Size (cm) - Length 0.1 -Current Size (cm) - Width 0.1 -Current Size (cm) - Depth 0.1 -Total Square Cm 0.01 -Photo Taken No -Epithelialization Large 67-100% #14 L Forearm -Current Size (cm) - Length 4 -Current Size (cm) - Width 2 -Current Size (cm) - Depth 0.1 -Total Square Cm 8 -Photo Taken Yes -Epithelialization Medium 34-66% -Tunneling No -Undermining/Tunneling No -Circular Undermining No -Classification - Thickness Full Thickness without Exposed Support Structure -Exudate Amt Medium Small -Exudate Type Serosanguineous Serosanguineous -Wound Margin Distinct, Flat & Intact Outline Attached -Granulation Amt Medium (34-66%) Large (67-100%) -Granulation Quality Red Red -Slough/Fibrin Yes -Necrosis Amt Medium (34-66%) Small (1-33%) -Necrotic Tissue Type Adherent Slough Adherent Slough -Structure Exposed N/A -Texture (Анна-wound Skin Appearance) Friable Assessed, Scarring -Moisture (Анна-wound Skin Appearance) No Abnormality Assessed,Dry/ Scaly -Color (Анна-wound Skin Appearance) Ecchymosis Assessed -Temperature (Анна-wound Skin No Abnormality No Abnormality Appearance) (Pt Warm) (Pt Warm) -Tenderness on Palpation (Анна-wound Yes No Skin Appearance) -Ulcer Cleansing Soap and Water Rinsed/ Irrigated with Saline -Foul Odor after Cleansing No No -Anesthetic Used 4% Lidocaine Solution -Wound Comment(s) NOT SEEING FASCIONE TODAY FOR THIS WOUND. NURSE CLEANSED AND ASSESSED. LOOKS GOOD. 13-right parks cluster -Combined with other wound No No -Current Size (cm) - Length 2.7 5.1 -Current Size (cm) - Width 0.6 8.1 -Current Size (cm) - Depth 0.1 0.2 -Total Square Cm 1.62 41.31 -Photo Taken No -Epithelialization None Present -Tunneling No No -Undermining/Tunneling No No -Circular Undermining No No -Exudate Amt Medium Small -Exudate Type Serosanguineous Serous -Wound Margin Distinct, Distinct, Outline Outline Attached Attached -Granulation Amt Medium (34-66%) None Present (0 %) -Granulation Quality Nesco -Slough/Fibrin Yes Yes -Necrosis Amt Large (67-100%) Large (67-100%) -Necrotic Tissue Type Adherent Slough Adherent Slough -Structure Exposed N/A -Texture (Анна-wound Skin Appearance) Assessed, Assessed, Localized Edema Scarring -Moisture (Анна-wound Skin Appearance) Assessed Assessed,Dry/ Scaly -Color (Анна-wound Skin Appearance) Assessed, Hemosiderin Staining -Temperature (Анна-wound Skin No Abnormality No Abnormality Appearance) (Pt Warm) (Pt Warm) -Tenderness on Palpation (Анна-wound No No Skin Appearance) -Ulcer Cleansing Wound Cleanser Soap and Water -Foul Odor after Cleansing No No -Anesthetic Used 4% Lidocaine 5% Lidocaine Solution Gel 12. R lateral ankle -Combined with other wound No No -Current Size (cm) - Length 0.6 0.8 -Current Size (cm) - Width 0.8 0.7 -Current Size (cm) - Depth 0.3 0.3 -Total Square Cm 0.48 0.56 -Photo Taken No -Epithelialization None Present -Tunneling No No -Undermining/Tunneling No No -Circular Undermining No No -Exudate Amt Medium Small -Exudate Type Serosanguineous Serous -Wound Margin Distinct, Distinct, Outline Outline Attached Attached -Granulation Amt Medium (34-66%) None Present (0 %) -Granulation Quality Nesco -Slough/Fibrin Yes Yes -Necrosis Amt Large (67-100%) Large (67-100%) -Necrotic Tissue Type Adherent Slough Adherent Slough -Structure Exposed N/A Bone -Texture (Анна-wound Skin Appearance) Assessed Assessed, Localized Edema ,Scarring -Moisture (Анна-wound Skin Appearance) Assessed Assessed,Dry/ Scaly -Color (Анна-wound Skin Appearance) Assessed Assessed, Erythema -Temperature (Анна-wound Skin No Abnormality No Abnormality Appearance) (Pt Warm) (Pt Warm) -Tenderness on Palpation (Анна-wound No No Skin Appearance) -Ulcer Cleansing Wound Cleanser Soap and Water -Foul Odor after Cleansing No No -Anesthetic Used 4% Lidocaine 5% Lidocaine Solution Gel 10-left lateral foot 5th methead -Combined with other wound No No -Current Size (cm) - Length 0.3 0.1 -Current Size (cm) - Width 0.3 0.2 -Current Size (cm) - Depth 0.2 0.2 -Total Square Cm 0.09 0.02 -Photo Taken No -Epithelialization None Present -Tunneling No No -Undermining/Tunneling No No -Circular Undermining No No -Exudate Amt Medium Small -Exudate Type Serosanguineous Serous -Wound Margin Thickened & Distinct, Rolled Under Outline Attached -Granulation Amt Medium (34-66%) Medium (34-66%) -Granulation Quality Nesco Red -Slough/Fibrin Yes Yes -Necrosis Amt Medium (34-66%) Medium (34-66%) -Necrotic Tissue Type Adherent Slough Adherent Slough -Structure Exposed Bone Bone -Texture (Анна-wound Skin Appearance) Assessed, Assessed Localized Edema -Moisture (Анна-wound Skin Appearance) Assessed Assessed -Color (Анна-wound Skin Appearance) Assessed Assessed, Erythema -Temperature (Анна-wound Skin No Abnormality No Abnormality Appearance) (Pt Warm) (Pt Warm) -Tenderness on Palpation (Анна-wound No No Skin Appearance) -Ulcer Cleansing Wound Cleanser Soap and Water -Foul Odor after Cleansing No No -Anesthetic Used 4% Lidocaine 5% Lidocaine Solution Gel #9 LEFT MEDIAL FOOT -Combined with other wound No No -Current Size (cm) - Length 0.6 0.3 -Current Size (cm) - Width 0.6 0.6 -Current Size (cm) - Depth 0.3 0.3 -Total Square Cm 0.36 0.18 -Photo Taken No -Epithelialization None Present -Tunneling No No -Undermining/Tunneling No Yes -Undermining/Tunneling Starts (O'clock 12 ) -Undermining/Tunneling Ends (O'clock) 12 -Maximum Distance (cm) 0.3 -Circular Undermining No No -Exudate Amt Medium Medium -Exudate Type Serosanguineous Serous -Wound Margin Thickened & Distinct, Rolled Under Outline Attached -Granulation Amt Medium (34-66%) None Present (0 %) -Granulation Quality Nesco -Slough/Fibrin Yes Yes -Necrosis Amt Medium (34-66%) Large (67-100%) -Necrotic Tissue Type Adherent Slough Adherent Slough -Structure Exposed Bone Bone -Texture (Анна-wound Skin Appearance) Assessed, Assessed, Localized Edema Scarring -Moisture (Анна-wound Skin Appearance) Assessed Assessed -Color (Анна-wound Skin Appearance) Assessed Assessed -Temperature (Анна-wound Skin No Abnormality No Abnormality Appearance) (Pt Warm) (Pt Warm) -Tenderness on Palpation (Анна-wound No Skin Appearance) -Ulcer Cleansing Wound Cleanser Soap and Water -Foul Odor after Cleansing No No -Anesthetic Used 4% Lidocaine 5% Lidocaine Solution Gel 08/11/21 10:13 Wound Center by Cathie Weber Pt states 07/28/21 hospitalized due to influenza and was hospitalized for 4 days and given Tamaflu. pt back home with home health services and physical therapy twice a week Initialized on 08/11/21 10:13 - END OF NOTE WC - Nurse 2 - General Ulcer CM Notes Start: 08/11/21 09:56 Freq: Status: Active Protocol: Activity Type Activity Date Activity User E-Sign Co-Sign Detail Recorded Client Recorded Date Recorded By Document 08/11/21 10:26 [id number] 08/11/21 10:33 Document 08/11/21 10:48 [id number] 08/11/21 10:53 Document 08/25/21 10:33 [id number] 08/25/21 10:39 08/11/21 08/11/21 08/25/21 10:26 10:48 10:33 Wound Center Nurse 2 15-right 1st metatarsal head -Time 10:33 10:33 -Correct Patient Yes Yes -Correct Side, Site, Position Yes Yes -Correct Procedure Yes Yes -Procedure Performed Yes Yes -Type of Procedure Debridement Debridement -Clinical Debridement Subcutaneous Subcutaneous -Tissue Removed Subcutaneous Subcutaneous -Post Debridement (cm) - Length 0.2 0.2 -Post Debridement (cm) - Width 0.2 0.1 -Post Debridement (cm) - Depth 0.3 0.1 -Total Square (Post) (cm) 0.04 0.02 -Area of Debridement (cm) - Length 0.2 0.2 -Area of Debridement (cm) - Width 0.2 0.1 -Total Square (Area) (cm) 0.04 0.02 -Tunneling No No -Undermining/Tunneling No No -Circular Undermining No No -Wound/Ulcer Outcome Not Healed Not Healed -Ulcer Cleansing Rinsed/ Rinsed/ Irrigated with Irrigated with Saline Saline -Foul Odor after Cleansing No No -Bioengineered Tissue No No -Bleeding Controlled with Pressure Pressure -Treatment Response Procedure Procedure Tolerated Well Tolerated Well -Offloading No No -Debridement - Subq, 1st 20sq cm No No #14 L Forearm -Time 10:49 -Correct Patient Yes No -Correct Side, Site, Position Yes No -Correct Procedure Yes No -Procedure Performed Yes No -Type of Procedure Debridement -Clinical Debridement Subcutaneous -Tissue Removed Subcutaneous -Post Debridement (cm) - Length 7.0 -Post Debridement (cm) - Width 3.5 -Post Debridement (cm) - Depth 0.1 -Total Square (Post) (cm) 24.50 -Area of Debridement (cm) - Length 7.0 -Area of Debridement (cm) - Width 3.5 -Total Square (Area) (cm) 24.50 -Tunneling No -Undermining/Tunneling No -Circular Undermining No -Wound/Ulcer Outcome Not Healed Not Healed -Ulcer Cleansing Rinsed/ Irrigated with Saline -Foul Odor after Cleansing Yes, Due to Product Use -Bioengineered Tissue No -Bleeding Controlled with Pressure -Treatment Response Procedure Tolerated Well -Debridement - Subq, 1st 20sq cm Yes -Debridement, SubQ, ea addt'l 20sq cm 1 or part thereof 13-right parks cluster -Time 10:26 10:34 -Correct Patient Yes Yes -Correct Side, Site, Position Yes Yes -Correct Procedure Yes Yes -Procedure Performed Yes Yes -Type of Procedure Debridement Debridement -Clinical Debridement Subcutaneous Subcutaneous -Tissue Removed Subcutaneous Subcutaneous -Post Debridement (cm) - Length 2.8 5.2 -Post Debridement (cm) - Width 0.6 8.1 -Post Debridement (cm) - Depth 0.1 0.2 -Total Square (Post) (cm) 1.68 42.12 -Area of Debridement (cm) - Length 2.8 5.2 -Area of Debridement (cm) - Width 0.6 8.1 -Total Square (Area) (cm) 1.68 42.12 -Tunneling No No -Undermining/Tunneling No No -Circular Undermining No No -Wound/Ulcer Outcome Not Healed Not Healed -Ulcer Cleansing Rinsed/ Rinsed/ Irrigated with Irrigated with Saline Saline -Foul Odor after Cleansing No No -Bioengineered Tissue No No -Bleeding Controlled with Pressure Pressure -Treatment Response Procedure Procedure Tolerated Well Tolerated Well -Offloading No No -Debridement - Subq, 1st 20sq cm No No 12. R lateral ankle -Time 10:26 10:35 -Correct Patient Yes Yes -Correct Side, Site, Position Yes Yes -Correct Procedure Yes Yes -Procedure Performed Yes Yes -Type of Procedure Debridement Debridement -Clinical Debridement Subcutaneous Subcutaneous -Tissue Removed Subcutaneous Subcutaneous -Post Debridement (cm) - Length 0.7 0.8 -Post Debridement (cm) - Width 0.8 0.8 -Post Debridement (cm) - Depth 0.3 0.3 -Total Square (Post) (cm) 0.56 0.64 -Area of Debridement (cm) - Length 0.7 0.8 -Area of Debridement (cm) - Width 0.8 0.8 -Total Square (Area) (cm) 0.56 0.64 -Tunneling No No -Undermining/Tunneling No No -Circular Undermining No No -Wound/Ulcer Outcome Not Healed Not Healed -Ulcer Cleansing Rinsed/ Rinsed/ Irrigated with Irrigated with Saline Saline -Foul Odor after Cleansing No No -Bioengineered Tissue No No -Bleeding Controlled with Pressure Pressure -Treatment Response Procedure Procedure Tolerated Well Tolerated Well -Offloading No No -Debridement - Subq, 1st 20sq cm No No 10-left lateral foot 5th methead -Time 10:27 10:36 -Correct Patient Yes Yes -Correct Side, Site, Position Yes Yes -Correct Procedure Yes Yes -Procedure Performed Yes Yes -Type of Procedure Debridement Debridement -Clinical Debridement Subcutaneous Subcutaneous -Tissue Removed Subcutaneous Subcutaneous -Post Debridement (cm) - Length 0.3 0.2 -Post Debridement (cm) - Width 0.4 0.2 -Post Debridement (cm) - Depth 0.2 0.2 -Total Square (Post) (cm) 0.12 0.04 -Area of Debridement (cm) - Length 0.3 0.2 -Area of Debridement (cm) - Width 0.4 0.2 -Total Square (Area) (cm) 0.12 0.04 -Tunneling No No -Undermining/Tunneling No No -Circular Undermining No No -Wound/Ulcer Outcome Not Healed Not Healed -Ulcer Cleansing Rinsed/ Rinsed/ Irrigated with Irrigated with Saline Saline -Foul Odor after Cleansing No No -Bioengineered Tissue No No -Bleeding Controlled with Pressure Pressure -Treatment Response Procedure Procedure Tolerated Well Tolerated Well -Offloading No No -Debridement - Subq, 1st 20sq cm No No #9 LEFT MEDIAL FOOT -Time 10:28 10:37 -Correct Patient Yes Yes -Correct Side, Site, Position Yes Yes -Correct Procedure Yes Yes -Procedure Performed Yes Yes -Type of Procedure Debridement Debridement -Clinical Debridement Subcutaneous Subcutaneous -Tissue Removed Subcutaneous Subcutaneous -Post Debridement (cm) - Length 0.6 0.4 -Post Debridement (cm) - Width 0.7 0.6 -Post Debridement (cm) - Depth 0.3 0.3 -Total Square (Post) (cm) 0.42 0.24 -Area of Debridement (cm) - Length 0.6 0.4 -Area of Debridement (cm) - Width 0.7 0.6 -Total Square (Area) (cm) 0.42 0.24 -Tunneling No No -Undermining/Tunneling No No -Circular Undermining No No -Wound/Ulcer Outcome Not Healed Not Healed -Ulcer Cleansing Rinsed/ Rinsed/ Irrigated with Irrigated with Saline Saline -Foul Odor after Cleansing No No -Bioengineered Tissue No No -Bleeding Controlled with Pressure Pressure -Treatment Response Procedure Procedure Tolerated Well Tolerated Well -Offloading No No -Debridement - Subq, 1st 20sq cm Yes Yes -Debridement, SubQ, ea addt'l 20sq cm 2 or part thereof Pain Scale: 0-10 Numeric Is Patient Pain Free? Yes Yes Yes - Nurse 3 - General Ulcer D/C NN Start: 08/11/21 09:56 Freq: Status: Active Protocol: Activity Type Activity Date Activity User E-Sign Co-Sign Detail Recorded Client Recorded Date Recorded By Document 08/11/21 11:13 DL [id number] 08/11/21 11:15 DL Document 08/25/21 10:45 OK [id number] 08/25/21 10:48 AK 08/11/21 08/25/21 11:13 10:45 Wound Care Nurse 3 15-right 1st metatarsal head -Ulcer Cleansing Soap and Water Rinsed/ Irrigated with Saline -Foul Odor after Cleansing No -Primary Dressing Applied C Hydrogel ($) Aquacel AG 4x4 -Primary Dressing Covered/Secured with Dry Gauze & Dry Gauze & Roll Gauze, Roll Gauze, Secured with Secured with Tape Tape -Aquacel AG 4x4 1 #14 L Forearm -Ulcer Cleansing Soap and Water Rinsed/ Irrigated with Saline -Foul Odor after Cleansing No No -Negative Pressure Wound Therapy N/A -Primary Dressing Applied C Hydrogel ($) -Other Dressing Xeroform xeroform -Primary Dressing Covered/Secured with Dry Gauze & Dry Gauze & Roll Gauze, Roll Gauze, Secured with Secured with Tape Tape 13-right parks cluster -Ulcer Cleansing Soap and Water Rinsed/ Irrigated with Saline -Foul Odor after Cleansing No No -Negative Pressure Wound Therapy N/A -Primary Dressing Applied C Hydrogel ($) -Other Dressing hydrogel -Primary Dressing Covered/Secured with Dry Gauze & Roll Gauze, Secured with Tape 12. R lateral ankle -Ulcer Cleansing Soap and Water Rinsed/ Irrigated with Saline -Foul Odor after Cleansing No No -Negative Pressure Wound Therapy N/A -Primary Dressing Applied C Hydrogel ($) -Other Dressing hydrogel -Primary Dressing Covered/Secured with Dry Gauze & Dry Gauze & Roll Gauze, Roll Gauze, Secured with Secured with Tape Tape 10-left lateral foot 5th methead -Ulcer Cleansing Soap and Water Rinsed/ Irrigated with Saline -Foul Odor after Cleansing No No -Negative Pressure Wound Therapy N/A -Primary Dressing Applied C Hydrogel ($) -Other Dressing hydrogel -Primary Dressing Covered/Secured with Dry Gauze & Dry Gauze & Roll Gauze, Roll Gauze, Secured with Secured with Tape Tape #9 LEFT MEDIAL FOOT -Ulcer Cleansing Soap and Water Rinsed/ Irrigated with Saline -Foul Odor after Cleansing No No -Negative Pressure Wound Therapy N/A -Primary Dressing Applied Aquacel AG 2x2 C Hydrogel ($) -Primary Dressing Covered/Secured with Dry Gauze,Dry Dry Gauze & Gauze & Roll Roll Gauze, Gauze,Secured Secured with with Tape Tape -Aquacel AG 2x2 1 Treatment Response Procedure Tolerated Well Pain Scale: 0-10 Numeric Is Patient Pain Free? Yes Yes WC - Visit Discharge Discharge Condition Stable Stable Ambulatory Status Wheelchair Ambulatory Transportation Private Auto Private Auto Medication Reconcilliation completed & Yes provided to patient/care provider Clinical Summary of Care Provided Yes Facility Type Home Health Orders Sent Yes Assessment/Plan Assessment/Plan (1) Chronic ulcer of right foot with fat layer exposed: CODE(S): L97.512 - Non-pressure chronic ulcer of other part of right foot with fat layer exposed (2) Rheumatoid arthritis: CODE(S): M06.9 - Rheumatoid arthritis, unspecified QUALIFIERS: Rheumatoid arthritis location: foot Rheumatoid factor presence: unspecified presence Laterality: bilateral Qualified Code(s): M06.9 - Rheumatoid arthritis, unspecified (3) Fat pad atrophy of foot: CODE(S): L90.9 - Atrophic disorder of skin, unspecified (4) Osteomyelitis, chronic, ankle or foot: CODE(S): M86.679 - Other chronic osteomyelitis, unspecified ankle and foot (5) Delayed wound healing: CODE(S): T14.8XXD - Other injury of unspecified body region, subsequent encounter (6) Steroid long-term use: (7) PAD (peripheral artery disease): CODE(S): I73.9 - Peripheral vascular disease, unspecified (8) Chronic ulcer of left foot with necrosis of bone: CODE(S): L97.524 - Non-pressure chronic ulcer of other part of left foot with necrosis of bone (9) Skin tear of left lower leg without complication: CODE(S): S81.812A - Laceration without foreign body, left lower leg, initial encounter (10) Difficulty in walking, not elsewhere classified: CODE(S): R26.2 - Difficulty in walking, not elsewhere classified (11) Non-pressure chronic ulcer of other part of left foot with fat layer exposed: CODE(S): L97.522 - Non-pressure chronic ulcer of other part of left foot with fat layer exposed (12) Non-pressure chronic ulcer of right lower leg, limited to breakdown of skin: CODE(S): L97.911 - Non-pressure chronic ulcer of unspecified part of right lower leg limited to breakdown of skin (13) Chronic ulcer of right lower extremity with fat layer exposed: CODE(S): L97.912 - Non-pressure chronic ulcer of unspecified part of right lower leg with fat layer exposed PLAN: Patient seen and examined. Debridement was performed to the left foot as noted in the clinical nursing panel. Debridement was also performed to the right lower extremity ulcers and right foot ulcer as noted in the clinical nursing panel. Verbal consent was obtained and she tolerated this well. She continues to use the offloading inserts with significant improvement noted since beginning use however recently removed the left insole. Compliance was discussed. We discussed at length today the other more successful ways to offload wounds however she is not able to safely perform these due to her walking difficulty, balance, fall risk status. We discussed the benefits and risks of each opportunity. To continue wearing sneaker with offloading mod ification made recently. She is noted to use tubigrip. Discussed previously that the swelling may be cardiac in origin. She continues to follow-up with workgroup leader as recommended previously. She had prior infections and was treated with infectious disease. There are no signs infection noted today. Patient was previously treated with linezolid and Flagyl per Dr. Clements. Patient cultures from 01/19/2021 demonstrated Staphylococcus epididymis and anaerobic cocci. no local signs of infection noted today. This has been completed. It is also noted that she was already treated for osteomyelitis. Discussed with patient going a more palliative wound care route with her chronic nonhealing ulcerations especially given significant comorbidities and treatment of healing with medications. She elects to return biweekly. LEAS 06/30/20 showed moderate distal small vessel disease bilaterally at the digits. The left foot was noted to have biphasic pulses with CRUZ of 1.27 and TBI of 0.37. The left PT was noncompressible. The right foot PT and DP were noncompressible and TBI of 0.4 with triphasic and biphasic pulses. Patient had procedure with Dr Oseguera 07/21/20. Patient reports that the procedure went well. Dr. Oseguera is considering additional angiogram with intervention at this time. We discussed this at length today as she has put this process on hold to seek intervention for her back pain. I advised the patient to call and schedule and proceed forward with recommendations issue will likely not heal the ulcers with limited lower extremity blood flow and ongoing delays in treatment. She is very overwhelmed with all of her medical management and has placed a vascular plan on hold. She understands she is now on a palliative wound care plan. Discussed importance of non-smoking, blood sugar control, weight management, offloading, proper nutrition, and hygiene to optimize healing potential. She denies home health and physical therapy in her home on a routine basis and encouraged continued participation. Discussed that her chronic steroid use for her RA can impact wound healing as well as impact her body's ability to mount an immune response. We discussed the option of transitioning her back to her medications under the management of her generator rebuilder. I do not think this would benefit her wound healing progression however she understands if she is having flareups and needs to return to the medication that is okay to proceed forward with more of a palliative type wound care plan. Her note will be faxed to [facility] rheumatology. She sees Dr. Tovar. Her tentative plan is to progress back to methotrexate so she can stop her prednisone. Recent medical records reviewed. Discussed the importance of proper nutrition including getting enough protein in her diet to help with healing. Bone biopsy 01/05/2021 results of the first metatarsal head on the left foot confirm diagnosis of osteomyelitis infection. Previously obtained MRI also derrell wed osteomyelitis. Patient has undergone multiple rounds of antibiotic treatments per Dr. Clements in infectious disease for this. Surgical treatment options were also discussed with patient but it was decided that it was not worth the risk of potentially creating a larger wound that potentially more bacteria could then get into to infect the wound. Patient is a poor surgical candidate. Updated left foot x-ray ordered. Updated left foot x-ray did not demonstrate any progressive osseous destruction soft tissue emphysema or foreign body. She also has decreased bone density noted on this foot. Patient previously saw Dr. Steinberg for HBO evaluation. This was given prior to patient's recent heart attack and hospital admission. Patient will need to get cardiac clearance prior to being approved for HBO. This was not given at this time. We will potentially reconsider HBO therapy in the future if ever given cardiac clearance. We will hold off on this due to her recent fatigue symptoms. Encouraged protein rich diet and protein supplements. Discussed Vick supplementation. Patient is overall frail appearance with muscle atrophy noted. All questions answered. She is stable and will follow up in 2 weeks. Dressings: Continue wound care to foot ulcerations daily. To use Aquacel silver to subfirst metatarsal head ulcer site and hydrogel to other ulcers of bilateral lower extremities. To moisturize the legs and feet daily. This note was generated with [employer] software. It may contain incorrect words, spelling, and punctuation that were not noted in checking the note before signing.
== END 2021-09-04 23:59 | disposition home or self-care (01) ==
LOC: WC 10:00
PROVIDERS: PCP Physician Assistant; Visit Provider Podiatrist
DX: L97.524 Non-pressure chronic ulcer of other part of left foot with necrosis of bone (principal); L97.512 Non-pressure chronic ulcer of other part of right foot with fat layer exposed; L97.522 Non-pressure chronic ulcer of other part of left foot with fat layer exposed; L97.911 Non-pressure chronic ulcer of unspecified part of right lower leg limited to breakdown of skin; L97.912 Non-pressure chronic ulcer of unspecified part of right lower leg with fat layer exposed; M06.9 Rheumatoid arthritis, unspecified; M86.679 Other chronic osteomyelitis, unspecified ankle and foot; I73.9 Peripheral vascular disease, unspecified; R26.2 Difficulty in walking, not elsewhere classified; M54.9 Dorsalgia, unspecified; L90.9 Atrophic disorder of skin, unspecified; T14.8XXD Other injury of unspecified body region, subsequent encounter
CPT/HCPCS: 11042; 11045; 99213; G0463

== ENCOUNTER 2021-09-29 10:00 | Outpatient (RCR) | payer MEDICARE, SELFPAY ==
[2021-09-05 00:28] VITALS: BP 148/60; PULSE 72; RESP 16; TEMP 35.8; BMI 18.6
[2021-09-08 10:13] VITALS: BP 136/76; PULSE 74; RESP 18; TEMP 36.5; BMI 18.6
--- NOTE | 2021-09-08 10:52 | PN.PCM_ITS ---
History of Present Illness Date of Service: 09/08/21 Chief Complaint: Left 1st metatarsal ulceration with chronic refractory os teomyelitis of the left first metatarsal left foot ulcer right ankle and leg ulcers right foot ulcer Left upper arm skin tear- seen by another provide History of Wound: Kylah is a 76-year-old female who was referred here for treatment bilateral lower extremity ulcerations. Patient is noted to have significant fat pad atrophy likely secondary to her rheumatoid arthritis. Patient is on multiple medications for her rheumatoid arthritis which are impeding her wound healing. Patient is also prone to breakdown given lack of fat pad. Patient noted to have had MRIs which showed osteomyelitis and has been treated by Dr. Clements with antibiotic treatments. Patient is a poor surgical candidate given her poor healing status and multiple comorbidities. The patient has had vascular studies on 06/30/20 showed moderate distal small vessel disease bilaterally at the digits with some non compressible vessels. Patient saw her vascular surgeon, Dr. Oseguera, who did intervention on the patient on 07/21/20. Dr. Oseguera is considering additional angiogram with intervention. This exact plan is pending and actually put on hold at this time per the patient to focus on her other medical conditions at this time. She had recent back pain exacerbation and also recently had a fall in which she was admitted to the hospital. She now has home health and physical therapy coming to the home for her assistance. Her was also recently diagnosed with cancer and all of this is very overwhelming for her at this time. She has had some improvements with applying lotion to the legs however still is not showering. The patient is noted to be a prior residential user of prednisone and methotrexate for her rheumatoid arthritis. These are acknowledged to be possible inhibitors to wound healing. Patient noted to have painful feet due to her rheumatoid arthritis. Patient is also noted to have had recent heart attack and has been started on blood thinners for this. Her is also ill at this time and she is overwhelmed with appointments. She offloads with Plastizote accommodative inserts in her shoes and slippers at home. She is a fall risk and was previously unable to wear surgical offloading shoes or boots. This was at modified by cutting a hole in the shoe to offload the entire side of the foot. She denies fever, chills, nausea, vomiting. She is also treated today for left arm skin tear with clinical nurse practitioner, Angie Hodge. This has healed today. Progress of Wound: healed right foot others stable Objective Data Objective Data Vital Signs: Vital Signs Temp Pulse Resp BP 97.7 F L 74 18 136/76 H 09/08/21 10:13 09/08/21 10:13 09/08/21 10:13 09/08/21 10:13 Weight: 46.266 kg Body Mass Index (BMI) 18.6 Physical Exam Narrative Const alert and no apparent distress General Appearance: cooperative and comfortable okay Patient has overall frail appearance Extremity no calf tenderness, negative yasmine and baker sign No lower extremity edema General Extremity: tenderness to palpation palpable metatarsal heads. There is Significant fat pad atrophy noted with easily palpable metatarsal heads 1 through 5 bilaterally. Negative for clubbing or cyanosis or ecchymosis or erythema Vasc Peripheral Pulses: posterior tibial pulses absent and dorsalis pedis pulses present but diminished, normal capillary refill, no acute ischemic skin changes noted, cool temperature Skin General Skin Exam: dry flaky atrophic skin to entire bilateral lower extremities, absent hair growth noted; Negative for ecchymosis, eschar, pallor, rashes. Patient skin in general is in very poor condition especially since starting blood thinners. Her arms are noted to be extremely dark and discolored to her entire forearms. Wound Narrative: ulcers noted to plantar first metatarsal head left and lateral forefoot left. left subfirst metatarsal head ulceration. Bone continues to be exposed and is white and healthier in appearance-stable. Less serous drainage noted. No surrounding erythema or edema. No malodor, streaking, fluctuation, crepitus. Skin is atrophic and hairless. There is a lateral fifth metatarsal head ulcer that is fibrous and dry with exposed bone and without deep tissue necrosis or infection. There is significant amount of fat pad atrophy noted to bilateral feet secondary to patient's rheumatoid arthritis. There is noted minimal callus at previous ulceration sites. lateral right ankle ulcer is punctate with fibrous base that has subcutaneous tissue exposed. There is no probe to bone at this site however deep periosteal layer is suspected. There is also superficial new skin discontinuity with some hemorrhagic and partial dermal layer intact to the anterior mid leg. first metatarsal head ulcer right foot is now healed with full epithelialization. Bilateral lower extremities with scale buildup secondary likely to edema and lack of hygiene; slightly improved this week. Neuro: Gait (Neuro): heel to toe. Guarded, slow, and unsteady Sensory Exam: extremities light-touch: Intact Debridement Note Debridement Note Wound debrided: right leg and lateral ankle. left sub 1st and 5th metatarsal heads Wound Grade/Stage: Type of Debridement: Excisional debridement Anesthesia Used: 4% Lidocaine Solution Depth: in the subcutaneous layer (right leg, right ankle, left sub 1st metatarsal head) and to bone (left fifth metatarsal head with ronguer) Percentage of wound debrided: 100 Instrument Used: #15 blade Tissue Removed: fibrous, devitalized subcutaneous, biofilm, slough Severity: Fat Layer Exposed Amount of bleeding with debridement: Mild Bleeding Controlled with: Pressure Patient tolerated procedure: Patient tolerated procedure well Post-Debridement Measurements and Additional Note: Post-Debridement Measurements/Treatment - Nurse 1 - General Ulcer Assessment Start: 09/08/21 10:12 Freq: Status: Active Protocol: LOWTRISTA Activity Type Activity Date Activity User E-Sign Co-Sign Detail Recorded Client Recorded Date Recorded By Document 09/08/21 10:13 DL [id number] 09/08/21 10:28 DL 09/08/21 10:13 - Today's Visit Information Type of service Follow-up Visit (Physician/MOLD LAMINATOR ) Arrival Mode Stretcher Transfer Assistance Manual Transfer Assist (Other) x1 Patient Requires Transmission-Based No Precautions Height and Weight Body Mass Index (BMI) 18.6 BMI Classification Normal Vital Signs Temperature (97.8 F-99.1 F) 97.7 F L Temperature Source Temporal Pulse Rate (60-100) 74 Pulse Location Monitor Respiratory Rate (12-18) 18 Respiratory rate source Observation Blood Pressure (90/60-120/80) 136/76 H Blood Pressure Mean (mm Hg) 96 Source Monitor History Since Last Visit- (Skip if this is Patient's initial visit) Have you changed medications since your No last visit? Any new allergies or adverse reactions No Had a fall/change in ADL's that may No increase risk of falls Signs or symptoms of abuse and/or No neglect since last visit Have you been in the hospital since your No last visit? Has dressing in place as prescribed Yes Has compression in place as prescribed Yes Has offloadiing in place as prescribed Yes Experienced any changes in pain level or No management Left Footwear Custom Shoe Right Footwear Custom Shoe Pain Scale: 0-10 Numeric Is Patient Pain Free? Yes WC - Nurse 1 - General Ulcer Measurement Start: 09/08/21 10:12 Freq: Status: Active Protocol: Activity Type Activity Date Activity User E-Sign Co-Sign Detail Recorded Client Recorded Date Recorded By Document 09/08/21 10:13 DL [id number] 09/08/21 10:28 DL 09/08/21 10:13 Wound Center Nurse 1 15-right 1st metatarsal head -Current Size (cm) - Length 0.1 -Current Size (cm) - Width 0.1 -Current Size (cm) - Depth 0.1 -Total Square Cm 0.01 -Photo Taken No -Exudate Amt None Present -Wound Margin Thickened -Granulation Amt Large (67-100%) -Granulation Quality Pale -Necrosis Amt None Present (0 %) -Structure Exposed N/A -Texture (Анна-wound Skin Appearance) Callus -Moisture (Анна-wound Skin Appearance) Dry/Scaly -Color (Анна-wound Skin Appearance) No Abnormality -Temperature (Анна-wound Skin No Abnormality Appearance) (Pt Warm) -Tenderness on Palpation (Анна-wound No Skin Appearance) -Ulcer Cleansing Soap and Water -Foul Odor after Cleansing No -Anesthetic Used 5% Lidocaine Gel #14 L Forearm -Current Size (cm) - Length 0.1 -Current Size (cm) - Width 0.1 -Current Size (cm) - Depth 0.1 -Total Square Cm 0.01 -Photo Taken No -Exudate Amt None Present -Wound Margin Flat & Intact -Granulation Amt Large (67-100%) -Granulation Quality Pale,Advance -Necrosis Amt Small (1-33%) -Necrotic Tissue Type Adherent Slough -Texture (Анна-wound Skin Appearance) Scarring -Moisture (Анна-wound Skin Appearance) Dry/Scaly -Color (Анна-wound Skin Appearance) Not Assessed -Temperature (Анна-wound Skin No Abnormality Appearance) (Pt Warm) -Tenderness on Palpation (Анна-wound No Skin Appearance) -Ulcer Cleansing Soap and Water -Foul Odor after Cleansing No -Anesthetic Used 5% Lidocaine Gel 13-right parks cluster -Current Size (cm) - Length 3.8 -Current Size (cm) - Width 1.5 -Current Size (cm) - Depth 0.3 -Total Square Cm 5.70 -Photo Taken No -Exudate Amt Medium -Exudate Type Yellow/Green -Wound Margin Distinct, Outline Attached -Granulation Amt None Present (0 %) -Necrosis Amt Large (67-100%) -Necrotic Tissue Type Adherent Slough -Structure Exposed N/A -Texture (Анна-wound Skin Appearance) Scarring -Moisture (Анна-wound Skin Appearance) Dry/Scaly -Color (Анна-wound Skin Appearance) No Abnormality, Hemosiderin Staining -Temperature (Анна-wound Skin No Abnormality Appearance) (Pt Warm) -Tenderness on Palpation (Анна-wound No Skin Appearance) -Anesthetic Used 4% Lidocaine Solution 12. R lateral ankle -Current Size (cm) - Length 0.9 -Current Size (cm) - Width 0.9 -Current Size (cm) - Depth 0.3 -Total Square Cm 0.81 -Photo Taken No -Exudate Amt Small -Exudate Type Yellow/Green -Wound Margin Distinct, Outline Attached -Granulation Amt None Present (0 %) -Necrosis Amt Large (67-100%) -Necrotic Tissue Type Adherent Slough -Texture (Нана-wound Skin Appearance) Scarring -Moisture (Анна-wound Skin Appearance) Dry/Scaly -Color (Анна-wound Skin Appearance) No Abnormality -Temperature (Анна-wound Skin No Abnormality Appearance) (Pt Warm) -Ulcer Cleansing Soap and Water -Foul Odor after Cleansing No -Anesthetic Used 5% Lidocaine Gel 10-left lateral foot 5th methead -Current Size (cm) - Length 0.8 -Current Size (cm) - Width 0.5 -Current Size (cm) - Depth 0.1 -Total Square Cm 0.40 -Photo Taken No -Exudate Amt None Present -Wound Margin Distinct, Outline Attached -Granulation Amt None Present (0 %) -Necrosis Amt Large (67-100%) -Necrotic Tissue Type Adherent Slough -Structure Exposed Bone -Texture (Анна-wound Skin Appearance) Scarring -Moisture (Анна-wound Skin Appearance) Dry/Scaly -Color (Анна-wound Skin Appearance) No Abnormality -Temperature (Анна-wound Skin No Abnormality Appearance) (Pt Warm) -Tenderness on Palpation (Анна-wound No Skin Appearance) -Foul Odor after Cleansing No -Anesthetic Used 4% Lidocaine Solution #9 LEFT MEDIAL FOOT -Current Size (cm) - Length 0.6 -Current Size (cm) - Width 0.6 -Current Size (cm) - Depth 0.3 -Total Square Cm 0.36 -Photo Taken No -Exudate Amt Small -Exudate Type Yellow/Green -Wound Margin Distinct, Outline Attached -Granulation Amt None Present (0 %) -Necrosis Amt Large (67-100%) -Necrotic Tissue Type Adherent Slough -Structure Exposed Bone -Texture (Анна-wound Skin Appearance) Scarring -Moisture (Анна-wound Skin Appearance) Dry/Scaly -Color (Анна-wound Skin Appearance) No Abnormality -Temperature (Анна-wound Skin No Abnormality Appearance) (Pt Warm) -Tenderness on Palpation (Анна-wound No Skin Appearance) -Ulcer Cleansing Soap and Water -Foul Odor after Cleansing No -Anesthetic Used 5% Lidocaine Gel WC - Nurse 2 - General Ulcer CM Notes Start: 09/08/21 10:12 Freq: Status: Active Protocol: Activity Type Activity Date Activity User E-Sign Co-Sign Detail Recorded Client Recorded Date Recorded By Document 09/08/21 10:42 MW [id number] 09/08/21 10:44 MW 09/08/21 10:42 Wound Center Nurse 2 #14 L Forearm -Time 10:43 -Correct Patient Yes -Correct Side, Site, Position Yes -Correct Procedure Yes -Procedure Performed No -Post Debridement (cm) - Length 0 -Post Debridement (cm) - Width 0 -Post Debridement (cm) - Depth 0 -Total Square (Post) (cm) 0 -Wound/Ulcer Outcome Healed- Epithelialized Pain Scale: 0-10 Numeric Is Patient Pain Free? Yes Assessment/Plan Assessment/Plan (1) Chronic ulcer of right foot with fat layer exposed: CODE(S): L97.512 - Non-pressure chronic ulcer of other part of right foot with fat layer exposed (2) Rheumatoid arthritis: CODE(S): M06.9 - Rheumatoid arthritis, unspecified QUALIFIERS: Laterality: bilateral Rheumatoid arthritis location: foot Rheumatoid factor presence: unspecified presence Qualified Code(s): M06.9 - Rheumatoid arthritis, unspecified (3) Fat pad atrophy of foot: CODE(S): L90.9 - Atrophic disorder of skin, unspecified (4) Osteomyelitis, chronic, ankle or foot: CODE(S): M86.679 - Other chronic osteomyelitis, unspecified ankle and foot (5) Delayed wound healing: CODE(S): T14.8XXD - Other injury of unspecified body region, subsequent encounter (6) Steroid long-term use: (7) PAD (peripheral artery disease): CODE(S): I73.9 - Peripheral vascular disease, unspecified (8) Chronic ulcer of left foot with necrosis of bone: CODE(S): L97.524 - Non-pressure chronic ulcer of other part of left foot with necrosis of bone (9) Skin tear of left lower leg without complication: CODE(S): S81.812A - Laceration without foreign body, left lower leg, initial encounter (10) Difficulty in walking, not elsewhere classified: CODE(S): R26.2 - Difficulty in walking, not elsewhere classified (11) Non-pressure chronic ulcer of other part of left foot with fat layer exposed: CODE(S): L97.522 - Non-pressure chronic ulcer of other part of left foot with fat layer exposed (12) Non-pressure chronic ulcer of right lower leg, limited to breakdown of skin: CODE(S): L97.911 - Non-pressure chronic ulcer of unspecified part of right lower leg limited to breakdown of skin (13) Chronic ulcer of right lower extremity with fat layer exposed: CODE(S): L97.912 - Non-pressure chronic ulcer of unspecified part of right lower leg with fat layer exposed PLAN: Patient seen and examined. Debridement was performed to the left foot as noted in the clinical nursing panel. Debridement was also performed to the right lower extremity ulcers as noted in the clinical nursing panel. right ofot ulcer healed. Verbal consent was obtained and she tolerated this well. She continues to use the offloading inserts with significant improvement noted since beginning use however recently removed the left insole. Compliance was discussed. We discussed at length today the other more successful ways to offload wounds however she is not able to safely perform these due to her walking difficulty, balance, fall risk status. We discussed the benefits and risks of each opportunity. To continue wearing sneaker with offloading modification made recently. She is noted to use tubigrip. Discussed previously that the swelling may be cardiac in origin. She continues to follow-up with marine steam fitter helper as recommended previously. She had prior infections and was treated with infectious disease. There are no signs infection noted today. Patient was previously treated with linezolid and Flagyl per Dr. Clements. Patient cultures from 01/19/2021 demonstrated Staphylococcus epididymis and anaerobic cocci. no local signs of infection noted today. This has been completed. It is also noted that she was already treated for osteomyelitis. Discussed with patient going a more palliative wound care route with her chronic nonhealing ulcerations especially given significant comorbidities and treatment of healing with medications. She elects to return biweekly. LEAS 06/30/20 showed moderate distal small vessel disease bilaterally at the digits. The left foot was noted to have biphasic pulses with CRUZ of 1.27 and TBI of 0.37. The left PT was noncompressible. The right foot PT and DP were noncompressible and TBI of 0.4 with triphasic and biphasic pulses. Patient had procedure with Dr Oseguera 07/21/20. Patient reports that the procedure went well. Dr. Oseguera is considering additional angiogram with intervention at this time. We discussed this at length today as she has put this process on hold to seek intervention for her back pain. I advised the patient to call and schedule and proceed forward with recommendations issue will likely not heal the ulcers with limited lower extremity blood flow and ongoing delays in treatment. She is very overwhelmed with all of her medical management and has placed a vascular plan on hold. She understands she is now on a palliative wound care plan. Discussed importance of non-smoking, blood sugar control, weight management, offloading, proper nutrition, and hygiene to optimize healing potential. She denies home health and physical therapy in her home on a routine basis and enc ouraged continued participation. Discussed that her chronic steroid use for her RA can impact wound healing as well as impact her body's ability to mount an immune response. We discussed the option of transitioning her back to her medications under the management of her hydraulic dredge operator. I do not think this would benefit her wound healing progression however she understands if she is having flareups and needs to return to the medication that is okay to proceed forward with more of a palliative type wound care plan. Her note will be faxed to [facility] rheumatology. She sees Dr. Tovar. Her tentative plan is to progress back to methotrexate so she can stop her prednisone. Recent medical records reviewed. Discussed the importance of proper nutrition including getting enough protein in her diet to help with healing. Bone biopsy 01/05/2021 results of the first metatarsal head on the left foot confirm diagnosis of osteomyelitis infection. Previously obtained MRI also showed osteomyelitis. Patient has undergone multiple rounds of antibiotic treatments per Dr. Clements in infectious disease for this. Surgical treatment options were also discussed with patient but it was decided that it was not worth the risk of potentially creating a larger wound that potentially more bacteria could then get into to infect the wound. Patient is a poor surgical candidate. Updated left foot x-ray ordered. Updated left foot x-ray did not demonstrate any progressive osseous destruction soft tissue emphysema or foreign body. She also has decreased bone density noted on this foot. Patient previously saw Dr. Steinberg for HBO evaluation. This was given prior to patient's recent heart attack and hospital admission. Patient will need to get cardiac clearance prior to being approved for HBO. This was not given at this time. We will potentially reconsider HBO therapy in the future if ever given cardiac clearance. We will hold off on this due to her recent fatigue symptoms. Encouraged protein rich diet and protein supplements. Discussed Vick supplementation. Patient is overall frail appearance with muscle atrophy noted. All questions answered. She is stable and will follow up in 3 weeks. She is on a palliative plan and feels very overwhelmed with coming to clinic on a routine basis. Dressings: Continue wound care to foot ulcerations daily. To use Aquacel silver to subfirst metatarsal head ulcer site and hydrogel to other ulcers of bilateral lower extremities. To moisturize the legs and feet daily. This note was generated with [employer] dictation software. It may contain incorrect words, spelling, and punctuation that were not noted in checking the note before signing.
--- NOTE | 2021-09-08 11:23 | PCM.WC.PN ---
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 Patient is noted to have significant fat pad atrophy likely secondary to her rheumatoid arthritis. Patient is on multiple medications for her rheumatoid arthritis which are impeding her wound healing. Patient is also prone to breakdown given lack of fat pad. Patient noted to have had MRIs which showed osteomyelitis and has been treated by Dr. Clements with antibiotic treatments. Patient is a poor surgical candidate given her poor healing status and multiple comorbidities. The patient has had vascular studies on 06/30/20 showed moderate distal small vessel disease bilaterally at the digits with some non compressible vessels. Patient saw her vascular surgeon, Dr. Oseguera, who did intervention on the patient on 07/21/20. Dr. Oseguera is considering additional angiogram with intervention. This exact plan is pending and actually put on hold at this time per the patient to focus on her other medical conditions at this time. She had recent back pain exacerbation and also recently had a fall in which she was admitted to the hospital. She now has home health and physical therapy coming to the home for her assistance. Her was also recently diagnosed with cancer and all of this is very overwhelming for her at this time. She has had some improvements with applying lotion to the legs however still is not showering. 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 These are acknowledged to be possible inhibitors to wound healing. Patient noted to have painful feet due to her rheumatoid arthritis. Patient is also noted to have had recent heart attack and has been started on blood thinners for this. Her is also ill at this time and she is overwhelmed with appointments. She offloads with Plastizote accommodative inserts in her shoes and slippers at home. She is a fall risk and was previously unable to wear surgical offloading shoes or boots. This was at modified by cutting a hole in the shoe to offload the entire side of the foot. She denies fever, chills, nausea, vomiting. She is also treated today for left arm skin tear with clinical nurse practitioner, Angie Hodge. This has healed today. Progress of Wound: healed right foot others stable Right upper arm is healed patient will be discharged from care to the left upper arm Subjective Subjective Patient is very happy about her care Objective Data Objective Data Left upper arm skin is well-healed no sign of infection or opening skin is completely closed Vital Signs: Vital Signs Temp Pulse Resp BP 97.7 F L 74 18 136/76 H 09/08/21 10:13 09/08/21 10:13 09/08/21 10:13 09/08/21 10:13 Weight: 102 lb Body Mass Index (BMI) 18.6 Physical Exam Narrative Const alert and no apparent distress General Appearance: cooperative and comfortable okay Patient has overall frail appearance Extremity no calf tenderness, negative yasmine and baker sign No lower extremity edema General Extremity: tenderness to palpation palpable metatarsal heads. There is Significant fat pad atrophy noted with easily palpable metatarsal heads 1 through 5 bilaterally. Negative for clubbing or cyanosis or ecchymosis or erythema Vasc Peripheral Pulses: posterior tibial pulses absent and dorsalis pedis pulses present but diminished, normal capillary refill, no acute ischemic skin changes noted, cool temperature Skin General Skin Exam: dry flaky atrophic skin to entire bilateral lower extremities, absent hair growth noted; Negative for ecchymosis, eschar, pallor, rashes. Patient skin in general is in very poor condition especially since starting blood thinners. Her arms are noted to be extremely dark and discolored to her entire forearms. Wound Narrative: ulcers noted to plantar first metatarsal head left and lateral forefoot left. left subfirst metatarsal head ulceration. Bone continues to be exposed and is white and healthier in appearance-stable. Less serous drainage noted. No surrounding erythema or edema. No malodor, streaking, fluctuation, crepitus. Skin is atrophic and hairless. There is a lateral fifth metatarsal head ulcer that is fibrous and dry with exposed bone and without deep tissue necrosis or infection. There is significant amount of fat pad atrophy noted to bilateral feet secondary to patient's rheumatoid arthritis. There is noted minimal callus at previous ulceration sites. lateral right ankle ulcer is punctate with fibrous base that has subcutaneous tissue exposed. There is no probe to bone at this site however deep periosteal layer is suspected. There is also superficial new skin discontinuity with some hemorrhagic and partial dermal layer intact to the anterior mid leg. first metatarsal head ulcer right foot is now healed with full epithelialization. Bilateral lower extremities with scale buildup secondary likely to edema and lack of hygiene; slightly improved this week. Neuro: Gait (Neuro): heel to toe. Guarded, slow, and unsteady Sensory Exam: extremities light-touch: Intact Debridement Note Debridement Note Wound debrided: Left upper arm No debridement was completed: No debridement was completed today Post-Debridement Measurements and Additional Note: Post-Debridement Measurements/Treatment WC - Nurse 1 - General Ulcer Assessment Start: 09/08/21 10:12 Freq: Status: Active Protocol: GEORGE Activity Type Activity Date Activity User E-Sign Co-Sign Detail Recorded Client Recorded Date Recorded By Document 09/08/21 10:13 DL [id number] 09/08/21 10:28 DL 09/08/21 10:13 WC - Today's Visit Information Type of service Follow-up Visit (Physician/SURVEILLANCE OBSERVER ) Arrival Mode Stretcher Transfer Assistance Manual Transfer Assist (Other) x1 Patient Requires Transmission-Based No Precautions Height and Weight Body Mass Index (BMI) 18.6 BMI Classification Normal Vital Signs Temperature (97.8 F-99.1 F) 97.7 F L Temperature Source Temporal Pulse Rate (60-100) 74 Pulse Location Monitor Respiratory Rate (12-18) 18 Respiratory rate source Observation Blood Pressure (90/60-120/80) 136/76 H Blood Pressure Mean (mm Hg) 96 Source Monitor History Since Last Visit- (Skip if this is Patient's initial visit) Have you changed medications since your No last visit? Any new allergies or adverse reactions No Had a fall/change in ADL's that may No increase risk of falls Signs or symptoms of abuse and/or No neglect since last visit Have you been in the hospital since your No last visit? Has dressing in place as prescribed Yes Has compression in place as prescribed Yes Has offloadiing in place as prescribed Yes Experienced any changes in pain level or No management Left Footwear Custom Shoe Right Footwear Custom Shoe Pain Scale: 0-10 Numeric Is Patient Pain Free? Yes SHAHANA - Nurse 1 - General Ulcer Measurement Start: 09/08/21 10:12 Freq: Status: Active Protocol: Activity Type Activity Date Activity User E-Sign Co-Sign Detail Recorded Client Recorded Date Recorded By Document 09/08/21 10:13 DL [id number] 09/08/21 10:28 DL 09/08/21 10:13 Wound Center Nurse 1 15-right 1st metatarsal head -Current Size (cm) - Length 0.1 -Current Size (cm) - Width 0.1 -Current Size (cm) - Depth 0.1 -Total Square Cm 0.01 -Photo Taken No -Exudate Amt None Present -Wound Margin Thickened -Granulation Amt Large (67-100%) -Granulation Quality Pale -Necrosis Amt None Present (0 %) -Structure Exposed N/A -Texture (Анна-wound Skin Appearance) Callus -Moisture (Анна-wound Skin Appearance) Dry/Scaly -Color (Анна-wound Skin Appearance) No Abnormality -Temperature (Анна-wound Skin No Abnormality Appearance) (Pt Warm) -Tenderness on Palpation (Анна-wound No Skin Appearance) -Ulcer Cleansing Soap and Water -Foul Odor after Cleansing No -Anesthetic Used 5% Lidocaine Gel #14 L Forearm -Current Size (cm) - Length 0.1 -Current Size (cm) - Width 0.1 -Current Size (cm) - Depth 0.1 -Total Square Cm 0.01 -Photo Taken No -Exudate Amt None Present -Wound Margin Flat & Intact -Granulation Amt Large (67-100%) -Granulation Quality Pale,[place] -Necrosis Amt Small (1-33%) -Necrotic Tissue Type Adherent Slough -Texture (Анна-wound Skin Appearance) Scarring -Moisture (Анна-wound Skin Appearance) Dry/Scaly -Color (Анна-wound Skin Appearance) Not Assessed -Temperature (Анна-wound Skin No Abnormality Appearance) (Pt Warm) -Tenderness on Palpation (Анна-wound No Skin Appearance) -Ulcer Cleansing Soap and Water -Foul Odor after Cleansing No -Anesthetic Used 5% Lidocaine Gel 13-right parks cluster -Current Size (cm) - Length 3.8 -Current Size (cm) - Width 1.5 -Current Size (cm) - Depth 0.3 -Total Square Cm 5.70 -Photo Taken No -Exudate Amt Medium -Exudate Type Yellow/Green -Wound Margin Distinct, Outline Attached -Granulation Amt None Present (0 %) -Necrosis Amt Large (67-100%) -Necrotic Tissue Type Adherent Slough -Structure Exposed N/A -Texture (Анна-wound Skin Appearance) Scarring -Moisture (Анна-wound Skin Appearance) Dry/Scaly -Color (Анна-wound Skin Appearance) No Abnormality, Hemosiderin Staining -Temperature (Анна-wound Skin No Abnormality Appearance) (Pt Warm) -Tenderness on Palpation (Анна-wound No Skin Appearance) -Anesthetic Used 4% Lidocaine Solution 12. R lateral ankle -Current Size (cm) - Length 0.9 -Current Size (cm) - Width 0.9 -Current Size (cm) - Depth 0.3 -Total Square Cm 0.81 -Photo Taken No -Exudate Amt Small -Exudate Type Yellow/Green -Wound Margin Distinct, Outline Attached -Granulation Amt None Present (0 %) -Necrosis Amt Large (67-100%) -Necrotic Tissue Type Adherent Slough -Texture (Анна-wound Skin Appearance) Scarring -Moisture (Анна-wound Skin Appearance) Dry/Scaly -Color (Анна-wound Skin Appearance) No Abnormality -Temperature (Анна-wound Skin No Abnormality Appearance) (Pt Warm) -Ulcer Cleansing Soap and Water -Foul Odor after Cleansing No -Anesthetic Used 5% Lidocaine Gel 10-left lateral foot 5th methead -Current Size (cm) - Length 0.8 -Current Size (cm) - Width 0.5 -Current Size (cm) - Depth 0.1 -Total Square Cm 0.40 -Photo Taken No -Exudate Amt None Present -Wound Margin Distinct, Outline Attached -Granulation Amt None Present (0 %) -Necrosis Amt Large (67-100%) -Necrotic Tissue Type Adherent Slough -Structure Exposed Bone -Texture (Анна-wound Skin Appearance) Scarring -Moisture (Анна-wound Skin Appearance) Dry/Scaly -Color (Анна-wound Skin Appearance) No Abnormality -Temperature (Анна-wound Skin No Abnormality Appearance) (Pt Warm) -Tenderness on Palpation (Анна-wound No Skin Appearance) -Foul Odor after Cleansing No -Anesthetic Used 4% Lidocaine Solution #9 LEFT MEDIAL FOOT -Current Size (cm) - Length 0.6 -Current Size (cm) - Width 0.6 -Current Size (cm) - Depth 0.3 -Total Square Cm 0.36 -Photo Taken No -Exudate Amt Small -Exudate Type Yellow/Green -Wound Margin Distinct, Outline Attached -Granulation Amt None Present (0 %) -Necrosis Amt Large (67-100%) -Necrotic Tissue Type Adherent Slough -Structure Exposed Bone -Texture (Анна-wound Skin Appearance) Scarring -Moisture (Анна-wound Skin Appearance) Dry/Scaly -Color (Анна-wound Skin Appearance) No Abnormality -Temperature (Анна-wound Skin No Abnormality Appearance) (Pt Warm) -Tenderness on Palpation (Анна-wound No Skin Appearance) -Ulcer Cleansing Soap and Water -Foul Odor after Cleansing No -Anesthetic Used 5% Lidocaine Gel - Nurse 2 - General Ulcer CM Notes Start: 09/08/21 10:12 Freq: Status: Active Protocol: Activity Type Activity Date Activity User E-Sign Co-Sign Detail Recorded Client Recorded Date Recorded By Document 09/08/21 10:42 MW [id number] 09/08/21 10:44 MW Document 09/08/21 10:46 [id number] 09/08/21 10:54 JF 09/08/21 09/08/21 10:42 10:46 Wound Center Nurse 2 15-right 1st metatarsal head -Correct Patient No -Correct Side, Site, Position No -Correct Procedure No -Procedure Performed No -Post Debridement (cm) - Length 0 -Post Debridement (cm) - Width 0 -Post Debridement (cm) - Depth 0 -Total Square (Post) (cm) 0 -Area of Debridement (cm) - Length 0 -Area of Debridement (cm) - Width 0 -Total Square (Area) (cm) 0 -Wound/Ulcer Outcome Healed- Epithelialized #14 L Forearm -Time 10:43 -Correct Patient Yes -Correct Side, Site, Position Yes -Correct Procedure Yes -Procedure Performed No -Post Debridement (cm) - Length 0 -Post Debridement (cm) - Width 0 -Post Debridement (cm) - Depth 0 -Total Square (Post) (cm) 0 -Wound/Ulcer Outcome Healed- Epithelialized Pain Scale: 0-10 Numeric Is Patient Pain Free? Yes Yes - Nurse 3 - General Ulcer D/C NN Start: 09/08/21 10:12 Freq: Status: Active Protocol: Activity Type Activity Date Activity User E-Sign Co-Sign Detail Recorded Client Recorded Date Recorded By Document 09/08/21 11:14 [facility] [id number] 09/08/21 11:15 [facility] 09/08/21 11:14 Wound Care Nurse 3 13-right parks cluster -Ulcer Cleansing Rinsed/ Irrigated with Saline -Foul Odor after Cleansing No -Primary Dressing Applied Other -Other Dressing hydrogel -Primary Dressing Covered/Secured with Dry Gauze & Roll Gauze, Secured with Tape 12. R lateral ankle -Ulcer Cleansing Rinsed/ Irrigated with Saline -Foul Odor after Cleansing No -Primary Dressing Applied Other -Other Dressing hydrogel -Primary Dressing Covered/Secured with Dry Gauze & Roll Gauze, Secured with Tape 10-left lateral foot 5th methead -Ulcer Cleansing Rinsed/ Irrigated with Saline -Foul Odor after Cleansing No -Primary Dressing Applied Other -Other Dressing hydrogel -Primary Dressing Covered/Secured with Dry Gauze & Roll Gauze, Secured with Tape #9 LEFT MEDIAL FOOT -Ulcer Cleansing Rinsed/ Irrigated with Saline -Foul Odor after Cleansing No -Primary Dressing Applied Aquacel AG 4x4 -Primary Dressing Covered/Secured with Dry Gauze & Roll Gauze, Secured with Tape -Aquacel AG 4x4 1 Treatment Response Procedure Tolerated Well Pain Scale: 0-10 Numeric Is Patient Pain Free? Yes WC - Visit Discharge Discharge Condition Stable Ambulatory Status Wheelchair Transportation Private Auto Accompanied by Assessment/Plan Assessment/Plan (1) Skin tear of left upper arm without complication: CODE(S): S41.112A - Laceration without foreign body of left upper arm, initial encounter QUALIFIERS: Encounter type: initial encounter Qualified Code(s): S41.112A - Laceration without foreign body of left upper arm, initial encounter PLAN: Area has resolved patient can follow-up as needed (2) Steroid long-term use:
[2021-09-29 10:25] VITALS: BP 142/87; PULSE 79; RESP 20; TEMP 36.6; BMI 18.6
--- NOTE | 2021-09-29 13:03 | PCM.WC.PN ---
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 Patient is noted to have significant fat pad atrophy likely secondary to her rheumatoid arthritis. Patient is on multiple medications for her rheumatoid arthritis which are impeding her wound healing. Patient is also prone to breakdown given lack of fat pad. Patient noted to have had MRIs which showed osteomyelitis and has been treated by Dr. Clements with antibiotic treatments. Patient is a poor surgical candidate given her poor healing status and multiple comorbidities. The patient has had vascular studies on 06/30/20 showed moderate distal small vessel disease bilaterally at the digits with some non compressible vessels. Patient saw her vascular surgeon, Dr. Oseguera, who did intervention on the patient on 07/21/20. Dr. Oseguera is considering additional angiogram with intervention. This exact plan is pending and actually put on hold at this time per the patient to focus on her other medical conditions at this time. She had recent back pain exacerbation and also recently had a fall in which she was admitted to the hospital. She now has home health and physical therapy coming to the home for her assistance. Her was also recently diagnosed with cancer and all of this is very overwhelming for her at this time. She has had some improvements with applying lotion to the legs and has some intermittent help showering. 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 These are acknowledged to be possible inhibitors to wound healing. Patient noted to have painful feet due to her rheumatoid arthritis. Patient is also noted to have had recent heart attack and has been started on blood thinners for this. She offloads with Plastizote accommodative inserts in her shoes and slippers at home. She is a fall risk and was previously unable to wear surgical offloading shoes or boots. This was at modified by cutting a hole in the shoe to offload the entire side of the foot. She denies fever, chills, nausea, vomiting. Progress of Wound: stable all Objective Data Objective Data Vital Signs: Vital Signs Temp Pulse Resp BP 98 F 79 20 H 142/87 H 09/29/21 10:09/29/21 10:25 09/29/21 10:25 09/29/21 10:25 Weight: 46.266 kg Body Mass Index (BMI) 18.6 Physical Exam Narrative Const alert and no apparent distress General Appearance: cooperative and comfortable okay Patient has overall frail appearance Extremity no calf tenderness, negative yasmine and baker sign No lower extremity edema General Extremity: tenderness to palpation palpable metatarsal heads. There is Significant fat pad atrophy noted with easily palpable metatarsal heads 1 through 5 bilaterally. Negative for clubbing or cyanosis or ecchymosis or erythema Vasc Peripheral Pulses: posterior tibial pulses absent and dorsalis pedis pulses present but diminished, normal capillary refill, no acute ischemic skin changes noted, cool temperature Skin General Skin Exam: dry flaky atrophic skin to entire bilateral lower extremities, absent hair growth noted; Negative for ecchymosis, eschar, pallor, rashes. Patient skin in general is in very poor condition especially since starting blood thinners. Her arms are noted to be extremely dark and discolored to her entire forearms. Wound Narrative: ulcers noted to plantar first metatarsal head left and lateral forefoot left. left subfirst metatarsal head ulceration. Bone continues to be exposed and is white and healthier in appearance-stable. Less serous drainage noted. No surrounding erythema or edema. No malodor, streaking, fluctuation, crepitus. Skin is atrophic and hairless. There is a lateral fifth metatarsal head ulcer that is fibrous and dry with exposed bone and without deep tissue necrosis or infection. There is significant amount of fat pad atrophy noted to bilateral feet secondary to patient's rheumatoid arthritis. There is noted minimal callus at previous ulceration sites. lateral right ankle ulcer is punctate with fibrous base that has subcutaneous tissue exposed. There is no probe to bone at this site however deep periosteal layer is suspected. There is also superficial new skin discontinuity with some hemorrhagic and partial dermal layer intact to the anterior mid leg. Right leg ulcer cluster with fibrinous base and serosanguineous drainage Bilateral lower extremities with scale buildup secondary likely to edema (mild to moderate) and lack of hygiene; slightly improved this week. Neuro: Gait (Neuro): heel to toe. Guarded, slow, and unsteady Sensory Exam: extremities light-touch: Intact Debridement Note Debridement Note Wound debrided: right: leg, lateral ankle. left: sub1 metatarsal head, lateral 5met. head Wound Grade/Stage: Type of Debridement: Excisional debridement Anesthesia Used: 4% Lidocaine Solution Depth: in the subcutaneous layer Percentage of wound debrided: 100 Instrument Used: #15 blade Tissue Removed: fibrous, devitalized subcutaneous, biofilm, slough Severity: Fat Layer Exposed Amount of bleeding with debridement: Mild Bleeding Controlled with: Pressure Patient tolerated procedure: Patient tolerated procedure well Post-Debridement Measurements and Additional Note: Post-Debridement Measurements/Treatment - Nurse 1 - General Ulcer Assessment Start: 09/08/21 10:12 Freq: Status: Active Protocol: [employer] Activity Type Activity Date Activity User E-Sign Co-Sign Detail Recorded Client Recorded Date Recorded By Document 09/08/21 10:13 DL [id number] 09/08/21 10:28 DL Document 09/29/21 10:25 DL [id number] 09/29/21 10:35 DL 09/08/21 09/29/21 10:13 10:25 - Today's Visit Information Type of service Follow-up Visit Follow-up Visit (Physician/ICE SCRAPER (Physician/ICE SCRAPER ) ) Arrival Mode Stretcher Wheelchair Transfer Assistance Manual Manual Transfer Assist (Other) x1 x1 Patient Identification Verified (Name & Yes ) Patient Requires Transmission-Based No No Precautions Height and Weight Body Mass Index (BMI) 18.6 18.6 BMI Classification Normal Normal Vital Signs Temperature (97.8 F-99.1 F) 97.7 F L 98 F Temperature Source Temporal Temporal Pulse Rate (60-100) 74 79 Pulse Location Monitor Monitor Respiratory Rate (12-18) 18 20 H Respiratory rate source Observation Observation Blood Pressure (90/60-120/80) 136/76 H 142/87 H Blood Pressure Mean (mm Hg) 96 105 Source Monitor Monitor History Since Last Visit- (Skip if this is Patient's initial visit) Have you changed medications since your No No last visit? Any new allergies or adverse reactions No No Had a fall/change in ADL's that may No No increase risk of falls Signs or symptoms of abuse and/or No No neglect since last visit Have you been in the hospital since your No No last visit? Has dressing in place as prescribed Yes Yes Has compression in place as prescribed Yes N/A Has offloadiing in place as prescribed Yes Yes Experienced any changes in pain level or No No management Left Footwear Custom Shoe Right Footwear Custom Shoe Pain Scale: 0-10 Numeric Is Patient Pain Free? Yes Yes WC - Nurse 1 - General Ulcer Measurement Start: 09/08/21 10:12 Freq: Status: Active Protocol: Activity Type Activity Date Activity User E-Sign Co-Sign Detail Recorded Client Recorded Date Recorded By Document 09/08/21 10:13 DL [id number] 09/08/21 10:28 DL Document 09/29/21 10:25 DL [id number] 09/29/21 10:35 DL 09/08/21 09/29/21 10:13 10:25 Wound Center Nurse 1 15-right 1st metatarsal head -Current Size (cm) - Length 0.1 -Current Size (cm) - Width 0.1 -Current Size (cm) - Depth 0.1 -Total Square Cm 0.01 -Photo Taken No -Exudate Amt None Present -Wound Margin Thickened -Granulation Amt Large (67-100%) -Granulation Quality Pale -Necrosis Amt None Present (0 %) -Structure Exposed N/A -Texture (Анна-wound Skin Appearance) Callus -Moisture (Анна-wound Skin Appearance) Dry/Scaly -Color (Анна-wound Skin Appearance) No Abnormality -Temperature (Анна-wound Skin No Abnormality Appearance) (Pt Warm) -Tenderness on Palpation (Анна-wound No Skin Appearance) -Ulcer Cleansing Soap and Water -Foul Odor after Cleansing No -Anesthetic Used 5% Lidocaine Gel #14 L Forearm -Current Size (cm) - Length 0.1 -Current Size (cm) - Width 0.1 -Current Size (cm) - Depth 0.1 -Total Square Cm 0.01 -Photo Taken No -Exudate Amt None Present -Wound Margin Flat & Intact -Granulation Amt Large (67-100%) -Granulation Quality Pale,[place] -Necrosis Amt Small (1-33%) -Necrotic Tissue Type Adherent Slough -Texture (Анна-wound Skin Appearance) Scarring -Moisture (Анна-wound Skin Appearance) Dry/Scaly -Color (Анна-wound Skin Appearance) Not Assessed -Temperature (Анна-wound Skin No Abnormality Appearance) (Pt Warm) -Tenderness on Palpation (Анна-wound No Skin Appearance) -Ulcer Cleansing Soap and Water -Foul Odor after Cleansing No -Anesthetic Used 5% Lidocaine Gel 13-right parks cluster -Current Size (cm) - Length 3.8 9.5 -Current Size (cm) - Width 1.5 8.4 -Current Size (cm) - Depth 0.3 0.3 -Total Square Cm 5.70 79.80 -Photo Taken No Yes -Exudate Amt Medium Medium -Exudate Type Yellow/Green Serosanguineous -Wound Margin Distinct, Distinct, Outline Outline Attached Attached -Granulation Amt None Present (0 None Present (0 %) %) -Necrosis Amt Large (67-100%) Large (67-100%) -Necrotic Tissue Type Adherent Slough Adherent Slough -Structure Exposed N/A N/A -Texture (Анна-wound Skin Appearance) Scarring Localized Edema ,Scarring -Moisture (Анна-wound Skin Appearance) Dry/Scaly Maceration,Dry/ Scaly -Color (Анна-wound Skin Appearance) No Abnormality, Hemosiderin Hemosiderin Staining Staining -Temperature (Анна-wound Skin No Abnormality No Abnormality Appearance) (Pt Warm) (Pt Warm) -Tenderness on Palpation (Анна-wound No No Skin Appearance) -Ulcer Cleansing Soap and Water -Foul Odor after Cleansing Yes, Due to Product Use -Anesthetic Used 4% Lidocaine 5% Lidocaine Solution Gel 12. R lateral ankle -Current Size (cm) - Length 0.9 1 -Current Size (cm) - Width 0.9 1 -Current Size (cm) - Depth 0.3 0.4 -Total Square Cm 0.81 1 -Photo Taken No Yes -Exudate Amt Small Medium -Exudate Type Yellow/Green Serosanguineous -Wound Margin Distinct, Distinct, Outline Outline Attached Attached -Granulation Amt None Present (0 None Present (0 %) %) -Necrosis Amt Large (67-100%) Large (67-100%) -Necrotic Tissue Type Adherent Slough Adherent Slough -Structure Exposed N/A -Texture (Анна-wound Skin Appearance) Scarring Scarring -Moisture (Анна-wound Skin Appearance) Dry/Scaly No Abnormality -Color (Анна-wound Skin Appearance) No Abnormality Hemosiderin Staining -Temperature (Анна-wound Skin No Abnormality No Abnormality Appearance) (Pt Warm) (Pt Warm) -Tenderness on Palpation (Анна-wound No Skin Appearance) -Ulcer Cleansing Soap and Water Soap and Water -Foul Odor after Cleansing No No -Anesthetic Used 5% Lidocaine 5% Lidocaine Gel Gel 10-left lateral foot 5th methead -Current Size (cm) - Length 0.8 0.3 -Current Size (cm) - Width 0.5 0.7 -Current Size (cm) - Depth 0.1 0.3 -Total Square Cm 0.40 0.21 -Photo Taken No Yes -Undermining/Tunneling Starts (O'clock 4 ) -Undermining/Tunneling Ends (O'clock) 12 -Maximum Distance (cm) 0.3 -Exudate Amt None Present Small -Exudate Type Serosanguineous -Wound Margin Distinct, Thickened Outline Attached -Granulation Amt None Present (0 None Present (0 %) %) -Necrosis Amt Large (67-100%) Large (67-100%) -Necrotic Tissue Type Adherent Slough Adherent Slough -Structure Exposed Bone N/A -Texture (Анна-wound Skin Appearance) Scarring Scarring -Moisture (Анна-wound Skin Appearance) Dry/Scaly Dry/Scaly -Color (Анна-wound Skin Appearance) No Abnormality Hemosiderin Staining -Temperature (Анна-wound Skin No Abnormality No Abnormality Appearance) (Pt Warm) (Pt Warm) -Tenderness on Palpation (Анна-wound No No Skin Appearance) -Ulcer Cleansing Soap and Water -Foul Odor after Cleansing No No -Anesthetic Used 4% Lidocaine 5% Lidocaine Solution Gel #9 LEFT MEDIAL FOOT -Current Size (cm) - Length 0.6 0.3 -Current Size (cm) - Width 0.6 0.6 -Current Size (cm) - Depth 0.3 0.3 -Total Square Cm 0.36 0.18 -Photo Taken No Yes -Exudate Amt Small Medium -Exudate Type Yellow/Green Yellow/Green -Wound Margin Distinct, Thickened Outline Attached -Granulation Amt None Present (0 None Present (0 %) %) -Necrosis Amt Large (67-100%) Small (1-33%) -Necrotic Tissue Type Adherent Slough Adherent Slough -Structure Exposed Bone Bone -Texture (Анна-wound Skin Appearance) Scarring -Moisture (Анна-wound Skin Appearance) Dry/Scaly No Abnormality -Color (Анна-wound Skin Appearance) No Abnormality Hemosiderin Staining -Temperature (Анна-wound Skin No Abnormality Appearance) (Pt Warm) -Tenderness on Palpation (Анна-wound No Skin Appearance) -Ulcer Cleansing Soap and Water Soap and Water -Foul Odor after Cleansing No No -Anesthetic Used 5% Lidocaine 5% Lidocaine Gel Gel WC - Nurse 2 - General Ulcer CM Notes Start: 09/08/21 10:12 Freq: Status: Active Protocol: Activity Type Activity Date Activity User E-Sign Co-Sign Detail Recorded Client Recorded Date Recorded By Document 09/08/21 10:42 MW [id number] 09/08/21 10:44 MW Document 09/08/21 10:46 JF [id number] 09/08/21 10:54 JF Document 09/08/21 11:27 JF [id number] 09/08/21 11:30 JF Document 09/29/21 10:47 JF [id number] 09/29/21 10:52 JF 09/08/21 09/08/21 09/08/21 10:42 10:46 11:27 Wound Center Nurse 2 15-right 1st metatarsal head -Correct Patient No -Correct Side, Site, Position No -Correct Procedure No -Procedure Performed No -Post Debridement (cm) - Length 0 -Post Debridement (cm) - Width 0 -Post Debridement (cm) - Depth 0 -Total Square (Post) (cm) 0 -Area of Debridement (cm) - Length 0 -Area of Debridement (cm) - Width 0 -Total Square (Area) (cm) 0 -Wound/Ulcer Outcome Healed- Epithelialized #14 L Forearm -Time 10:43 -Correct Patient Yes -Correct Side, Site, Position Yes -Correct Procedure Yes -Procedure Performed No -Post Debridement (cm) - Length 0 -Post Debridement (cm) - Width 0 -Post Debridement (cm) - Depth 0 -Total Square (Post) (cm) 0 -Wound/Ulcer Outcome Healed- Epithelialized 13-right parks cluster -Time 11:27 -Correct Patient Yes -Correct Side, Site, Position Yes -Correct Procedure Yes -Procedure Performed Yes -Type of Procedure Debridement -Clinical Debridement Subcutaneous -Tissue Removed Subcutaneous -Post Debridement (cm) - Length 3.8 -Post Debridement (cm) - Width 1.6 -Post Debridement (cm) - Depth 0.2 -Total Square (Post) (cm) 6.08 -Area of Debridement (cm) - Length 3.8 -Area of Debridement (cm) - Width 1.6 -Total Square (Area) (cm) 6.08 -Tunneling No -Undermining/Tunneling No -Circular Undermining No -Wound/Ulcer Outcome Not Healed -Ulcer Cleansing Rinsed/ Irrigated with Saline -Foul Odor after Cleansing No -Bioengineered Tissue No -Bleeding Controlled with Pressure -Treatment Response Procedure Tolerated Well -Offloading No -Debridement - Subq, 20sq cm No 12. R lateral ankle -Time 11:28 -Correct Patient Yes -Correct Side, Site, Position Yes -Correct Procedure Yes -Procedure Performed Yes -Type of Procedure Debridement -Clinical Debridement Subcutaneous -Tissue Removed Subcutaneous -Post Debridement (cm) - Length 1.0 -Post Debridement (cm) - Width 1.0 -Post Debridement (cm) - Depth 0.3 -Total Square (Post) (cm) 1.00 -Area of Debridement (cm) - Length 1.0 -Area of Debridement (cm) - Width 1.0 -Total Square (Area) (cm) 1.00 -Tunneling No -Undermining/Tunneling No -Circular Undermining No -Wound/Ulcer Outcome Not Healed -Ulcer Cleansing Rinsed/ Irrigated with Saline -Foul Odor after Cleansing No -Bioengineered Tissue No -Bleeding Controlled with Pressure -Treatment Response Procedure Tolerated Well -Offloading No -Debridement - Subq, 20sq cm No 10-left lateral foot 5th methead -Time 11:28 -Correct Patient Yes -Correct Side, Site, Position Yes -Correct Procedure Yes -Procedure Performed Yes -Type of Procedure Debridement -Clinical Debridement Bone -Tissue Removed Non-viable tissue -Post Debridement (cm) - Length 0.8 -Post Debridement (cm) - Width 0.6 -Post Debridement (cm) - Depth 0.2 -Total Square (Post) (cm) 0.48 -Area of Debridement (cm) - Length 0.8 -Area of Debridement (cm) - Width 0.6 -Total Square (Area) (cm) 0.48 -Tunneling No -Undermining/Tunneling No -Circular Undermining No -Wound/Ulcer Outcome Not Healed -Ulcer Cleansing Rinsed/ Irrigated with Saline -Foul Odor after Cleansing No -Bioengineered Tissue No -Bleeding Controlled with Pressure -Treatment Response Procedure Tolerated Well -Offloading No -Debridement - Subq, 1st 20sq cm No -Debridement - Bone, 1st 20sq cm Yes #9 LEFT MEDIAL FOOT -Time 11:30 -Correct Patient Yes -Correct Side, Site, Position Yes -Correct Procedure Yes -Procedure Performed Yes -Type of Procedure Debridement -Clinical Debridement Subcutaneous -Tissue Removed Subcutaneous -Post Debridement (cm) - Length 0.6 -Post Debridement (cm) - Width 0.6 -Post Debridement (cm) - Depth 0.2 -Total Square (Post) (cm) 0.36 -Area of Debridement (cm) - Length 0.6 -Area of Debridement (cm) - Width 0.6 -Total Square (Area) (cm) 0.36 -Tunneling No -Undermining/Tunneling No -Circular Undermining No -Wound/Ulcer Outcome Not Healed -Ulcer Cleansing Rinsed/ Irrigated with Saline -Foul Odor after Cleansing No -Bioengineered Tissue No -Bleeding Controlled with Pressure -Treatment Response Procedure Tolerated Well -Offloading No -Debridement - Subq, 20sq cm Yes Pain Scale: 0-10 Numeric Is Patient Pain Free? Yes Yes Yes 09/29/21 10:47 Wound Center Nurse 2 15-right 1st metatarsal head -Correct Patient -Correct Side, Site, Position -Correct Procedure -Procedure Performed -Post Debridement (cm) - Length -Post Debridement (cm) - Width -Post Debridement (cm) - Depth -Total Square (Post) (cm) -Area of Debridement (cm) - Length -Area of Debridement (cm) - Width -Total Square (Area) (cm) -Wound/Ulcer Outcome #14 L Forearm -Time -Correct Patient -Correct Side, Site, Position -Correct Procedure -Procedure Performed -Post Debridement (cm) - Length -Post Debridement (cm) - Width -Post Debridement (cm) - Depth -Total Square (Post) (cm) -Wound/Ulcer Outcome 13-right parks cluster -Time 10:47 -Correct Patient Yes -Correct Side, Site, Position Yes -Correct Procedure Yes -Procedure Performed Yes -Type of Procedure Debridement -Clinical Debridement Subcutaneous -Tissue Removed Subcutaneous -Post Debridement (cm) - Length 3.5 -Post Debridement (cm) - Width 5.0 -Post Debridement (cm) - Depth 0.2 -Total Square (Post) (cm) 17.50 -Area of Debridement (cm) - Length 3.5 -Area of Debridement (cm) - Width 5.0 -Total Square (Area) (cm) 17.50 -Tunneling No -Undermining/Tunneling No -Circular Undermining No -Wound/Ulcer Outcome Not Healed -Ulcer Cleansing Rinsed/ Irrigated with Saline -Foul Odor after Cleansing No -Bioengineered Tissue No -Bleeding Controlled with Pressure -Treatment Response Procedure Tolerated Well -Offloading No -Debridement - Subq, 1st 20sq cm Yes 12. R lateral ankle -Time 10:47 -Correct Patient Yes -Correct Side, Site, Position Yes -Correct Procedure Yes -Procedure Performed Yes -Type of Procedure Debridement -Clinical Debridement Subcutaneous -Tissue Removed Subcutaneous -Post Debridement (cm) - Length 1.1 -Post Debridement (cm) - Width 1.1 -Post Debridement (cm) - Depth 0.4 -Total Square (Post) (cm) 1.21 -Area of Debridement (cm) - Length 1.1 -Area of Debridement (cm) - Width 1.1 -Total Square (Area) (cm) 1.21 -Tunneling No -Undermining/Tunneling No -Circular Undermining No -Wound/Ulcer Outcome Not Healed -Ulcer Cleansing Rinsed/ Irrigated with Saline -Foul Odor after Cleansing No -Bioengineered Tissue No -Bleeding Controlled with Pressure -Treatment Response Procedure Tolerated Well -Offloading No -Debridement - Subq, 20sq cm No 10-left lateral foot 5th methead -Time 10:48 -Correct Patient Yes -Correct Side, Site, Position Yes -Correct Procedure Yes -Procedure Performed Yes -Type of Procedure Debridement -Clinical Debridement Subcutaneous -Tissue Removed Subcutaneous -Post Debridement (cm) - Length 0.4 -Post Debridement (cm) - Width 0.7 -Post Debridement (cm) - Depth 0.3 -Total Square (Post) (cm) 0.28 -Area of Debridement (cm) - Length 0.4 -Area of Debridement (cm) - Width 0.7 -Total Square (Area) (cm) 0.28 -Tunneling No -Undermining/Tunneling No -Circular Undermining No -Wound/Ulcer Outcome Not Healed -Ulcer Cleansing Rinsed/ Irrigated with Saline -Foul Odor after Cleansing No -Bioengineered Tissue No -Bleeding Controlled with Pressure -Treatment Response Procedure Tolerated Well -Offloading No -Debridement - Subq, 1st 20sq cm No -Debridement - Bone, 1st 20sq cm #9 LEFT MEDIAL FOOT -Time 10:49 -Correct Patient Yes -Correct Side, Site, Position Yes -Correct Procedure Yes -Procedure Performed Yes -Type of Procedure Debridement -Clinical Debridement Subcutaneous -Tissue Removed Subcutaneous -Post Debridement (cm) - Length 0.4 -Post Debridement (cm) - Width 0.6 -Post Debridement (cm) - Depth 0.3 -Total Square (Post) (cm) 0.24 -Area of Debridement (cm) - Length 0.4 -Area of Debridement (cm) - Width 0.6 -Total Square (Area) (cm) 0.24 -Tunneling No -Undermining/Tunneling No -Circular Undermining No -Wound/Ulcer Outcome Not Healed -Ulcer Cleansing Rinsed/ Irrigated with Saline -Foul Odor after Cleansing No -Bioengineered Tissue No -Bleeding Controlled with Pressure -Treatment Response Procedure Tolerated Well -Offloading No -Debridement - Subq, 1st 20sq cm No Pain Scale: 0-10 Numeric Is Patient Pain Free? Yes WC - Nurse 3 - General Ulcer D/C NN Start: 09/08/21 10:12 Freq: Status: Active Protocol: Activity Type Activity Date Activity User E-Sign Co-Sign Detail Recorded Client Recorded Date Recorded By Document 09/08/21 11:14 [facility] [id number] 09/08/21 11:15 [facility] Document 09/29/21 11:13 [facility] [id number] 09/29/21 11:15 [facility] 09/08/21 09/29/21 11:14 11:13 Wound Care Nurse 3 13-right parks cluster -Ulcer Cleansing Rinsed/ Rinsed/ Irrigated with Irrigated with Saline Saline -Foul Odor after Cleansing No No -Primary Dressing Applied Other C Hydrogel ($) -Other Dressing hydrogel -Primary Dressing Covered/Secured with Dry Gauze & Dry Gauze & Roll Gauze, Roll Gauze, Secured with Secured with Tape Tape -Other Covering DRSG PER RB RN 12. R lateral ankle -Ulcer Cleansing Rinsed/ Rinsed/ Irrigated with Irrigated with Saline Saline -Foul Odor after Cleansing No No -Primary Dressing Applied Other Other -Other Dressing hydrogel HYDROGEL -Primary Dressing Covered/Secured with Dry Gauze & Dry Gauze & Roll Gauze, Roll Gauze, Secured with Secured with Tape Tape -Other Covering DRSG PER RB RN 10-left lateral foot 5th methead -Ulcer Cleansing Rinsed/ Rinsed/ Irrigated with Irrigated with Saline Saline -Foul Odor after Cleansing No No -Primary Dressing Applied Other Other -Other Dressing hydrogel HYDROGEL -Primary Dressing Covered/Secured with Dry Gauze & Dry Gauze & Roll Gauze, Roll Gauze, Secured with Secured with Tape Tape -Other Covering DRSG PER RB RN #9 LEFT MEDIAL FOOT -Ulcer Cleansing Rinsed/ Rinsed/ Irrigated with Irrigated with Saline Saline -Foul Odor after Cleansing No No -Primary Dressing Applied Aquacel AG 4x4 Aquacel AG 2x2 -Primary Dressing Covered/Secured with Dry Gauze & Dry Gauze & Roll Gauze, Roll Gauze, Secured with Secured with Tape Tape -Other Covering DRSG PER RB RN -Aquacel AG 4x4 1 -Aquacel AG 2x2 1 Left -Tubular Bandage Single Layer -Size of Tubigrip Used Size D -Size D ($) 1 -Other PT HAD A SINGLE LAYER D FOR THE R ALREADY Treatment Response Procedure Procedure Tolerated Well Tolerated Well Pain Scale: 0-10 Numeric Is Patient Pain Free? Yes Yes WC - Visit Discharge Discharge Condition Stable Stable Ambulatory Status Wheelchair Wheelchair Transportation Private Auto Private Auto Accompanied by [place] [facility] Assessment/Plan Assessment/Plan (1) Rheumatoid arthritis: CODE(S): M06.9 - Rheumatoid arthritis, unspecified QUALIFIERS: Rheumatoid arthritis location: foot Rheumatoid factor presence: unspecified presence Laterality: bilateral Qualified Code(s): M06.9 - Rheumatoid arthritis, unspecified (2) Fat pad atrophy of foot: CODE(S): L90.9 - Atrophic disorder of skin, unspecified (3) Osteomyelitis, chronic, ankle or foot: CODE(S): M86.679 - Other chronic osteomyelitis, unspecified ankle and foot (4) Delayed wound healing: CODE(S): T14.8XXD - Other injury of unspecified body region, subsequent encounter (5) Steroid long-term use: (6) PAD (peripheral artery disease): CODE(S): I73.9 - Peripheral vascular disease, unspecified (7) Chronic ulcer of left foot with necrosis of bone: CODE(S): L97.524 - Non-pressure chronic ulcer of other part of left foot with necrosis of bone (8) Difficulty in walking, not elsewhere classified: CODE(S): R26.2 - Difficulty in walking, not elsewhere classified (9) Chronic ulcer of right lower extremity with fat layer exposed: CODE(S): L97.912 - Non-pressure chronic ulcer of unspecified part of right lower leg with fat layer exposed (10) Chronic ulcer of right leg with fat layer exposed: CODE(S): L97.912 - Non-pressure chronic ulcer of unspecified part of right lower leg with fat layer exposed PLAN: Patient seen and examined. Debridement was performed to the left foot as noted in the clinical nursing panel. Debridement was also performed to the right lower extremity ulcers as noted in the clinical nursing panel. Verbal consent was obtained and she tolerated this well. She continues to use the offloading inserts with significant improvement noted since beginning use however recently removed the left insole. Compliance was discussed. We discussed at length previously. the other more successful ways to offload wounds were not tolerated. she is not able to safely perform these due to her walking difficulty, balance, fall risk status. We discussed the benefits and risks of each opportunity. To continue wearing sneaker with offloading modification made recently. She is noted to use tubigrip; to continue bilateral. Discussed previously that the swelling may be cardiac in origin. She continues to follow-up with trimming cutter as recommended previously. She had prior infections and was treated with infectious disease. There are no signs infection noted today. Patient was previously treated with linezolid and Flagyl per Dr. Clements. Patient cultures from 01/19/2021 demonstrated Staphylococcus epididymis and anaerobic cocci. no local signs of infection noted today. This has been completed. It is also noted that she was already treated for osteomyelitis. Discussed with patient going a more palliative wound care route with her chronic nonhealing ulcerations especially given significant comorbidities and treatment of healing with medications. She elects to return biweekly. LEAS 06/30/20 showed moderate distal small vessel disease bilaterally at the digits. The left foot was noted to have biphasic pulses with CRUZ of 1.27 and TBI of 0.37. The left PT was noncompressible. The right foot PT and DP were noncompressible and TBI of 0.4 with triphasic and biphasic pulses. Patient had procedure with Dr Oseguera 07/21/20. Patient reports that the procedure went well. Dr. Oseguera is considering additional angiogram with intervention at this time. We discussed this at length today as she has put this process on hold to seek intervention for her back pain. I advised the patient to call and schedule and proceed forward with recommendations issue will likely not heal the ulcers with limited lower extremity blood flow and ongoing delays in treatment. She is very overwhelmed with all of her medical management and has placed a vascular plan on hold. She understands she is now on a palliative wound care plan.discussed again today. Discussed importance of non-smoking, blood sugar control, weight management, offloading, proper nutrition, and hygiene to optimize healing potential. She denies home health and physical therapy in her home on a routine basis and encouraged continued participation. Discussed that her chronic steroid use for her RA can impact wound healing as well as impact her body's ability to mount an immune response. 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 I do not think this would benefit her wound healing progression however she understands if she is having flareups and needs to return to the medication that is okay to proceed forward with more of a palliative type wound care plan. Her note will be faxed to [facility]ology. She sees Dr. Tovar. Her tentative plan is to progress back to methotrexate so she can stop her prednisone. Recent medical records reviewed. Discussed the importance of proper nutrition including getting enough protein in her diet to help with healing. Bone biopsy 01/05/2021 results of the first metatarsal head on the left foot confirm diagnosis of osteomyelitis infection. Previously obtained MRI also showed osteomyelitis. Patient has undergone multiple rounds of antibiotic treatments per Dr. Clements in infectious disease for this. Surgical treatment options were also discussed with patient but it was decided that it was not worth the risk of potentially creating a larger wound that potentially more bacteria could then get into to infect the wound. Patient is a poor surgical candidate. Updated left foot x-ray ordered. Updated left foot x-ray did not demonstrate any progressive osseous destruction soft tissue emphysema or foreign body. She also has decreased bone density noted on this foot. Patient previously saw Dr. Steinberg for HBO evaluation. This was given prior to patient's recent heart attack and hospital admission. Patient will need to get cardiac clearance prior to being approved for HBO. This was not given at this time. We will potentially reconsider HBO therapy in the future if ever given cardiac clearance. We will hold off on this due to her recent fatigue symptoms. Encouraged protein rich diet and protein supplements. Discussed Vick supplementation. Patient is overall frail appearance with muscle atrophy noted. All questions answered. She is stable and will follow up in 3 weeks. She is on a palliative plan and feels very overwhelmed with coming to clinic on a routine basis. Dressings: Continue wound care to foot ulcerations daily. To use Aquacel silver to subfirst metatarsal head ulcer site and hydrogel to other ulcers of bilateral lower extremities. To moisturize the legs and feet daily. This note was generated with [employer] dictation software. It may contain incorrect words, spelling, and punctuation that were not noted in checking the note before signing.
== END 2021-10-05 23:59 | disposition home or self-care (01) ==
LOC: WC 10:00
PROVIDERS: PCP Physician Assistant; Visit Provider Podiatrist
DX: L97.512 Non-pressure chronic ulcer of other part of right foot with fat layer exposed (principal); L97.524 Non-pressure chronic ulcer of other part of left foot with necrosis of bone; L97.522 Non-pressure chronic ulcer of other part of left foot with fat layer exposed; L97.911 Non-pressure chronic ulcer of unspecified part of right lower leg limited to breakdown of skin; L97.212 Non-pressure chronic ulcer of right calf with fat layer exposed; M06.9 Rheumatoid arthritis, unspecified; M05.79 Rheumatoid arthritis with rheumatoid factor of multiple sites without organ or systems involvement; M86.679 Other chronic osteomyelitis, unspecified ankle and foot; I73.9 Peripheral vascular disease, unspecified; R26.2 Difficulty in walking, not elsewhere classified; S81.812A Laceration without foreign body, left lower leg, initial encounter; M54.9 Dorsalgia, unspecified; L90.9 Atrophic disorder of skin, unspecified; T14.8XXD Other injury of unspecified body region, subsequent encounter
CPT/HCPCS: 11042; 11044; 99213; G0463

== ENCOUNTER 2021-11-03 13:56 | Outpatient (RCR) | payer MEDICARE, SELFPAY ==
[2021-10-06 00:44] VITALS: BP 142/87; PULSE 79; RESP 20; TEMP 36.6; BMI 18.6
[2021-11-03 13:49] VITALS: RESP 16; TEMP 36.5; BMI 18.6
--- NOTE | 2021-11-03 15:15 | PCM.WC.PN ---
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 Patient is noted to have significant fat pad atrophy likely secondary to her rheumatoid arthritis. Patient is on multiple medications for her rheumatoid arthritis which are impeding her wound healing. Patient is also prone to breakdown given lack of fat pad. Patient noted to have had MRIs which showed osteomyelitis and has been treated by Dr. Clements with antibiotic treatments. Patient is a poor surgical candidate given her poor healing status and multiple comorbidities. The patient has had vascular studies on 06/30/20 showed moderate distal small vessel disease bilaterally at the digits with some non compressible vessels. Patient saw her vascular surgeon, Dr. Oseguera, who did intervention on the patient on 07/21/20. Dr. Oseguera is considering additional angiogram with intervention. This exact plan is pending and actually put on hold at this time per the patient to focus on her other medical conditions at this time. She had recent back pain exacerbation and also recently had a fall in which she was admitted to the hospital. She now has home health and physical therapy coming to the home for her assistance. Her was also recently diagnosed with cancer and all of this is very overwhelming for her at this time. She has had some improvements with applying lotion to the legs and has some intermittent help showering. 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 These are acknowledged to be possible inhibitors to wound healing. Patient noted to have painful feet due to her rheumatoid arthritis. Patient is also noted to have had recent heart attack and has been started on blood thinners for this. She offloads with Plastizote accommodative inserts in her shoes and slippers at home. She is a fall risk and was previously unable to wear surgical offloading shoes or boots. This was at modified by cutting a hole in the shoe to offload the entire side of the foot. She denies fever, chills, nausea, vomiting. She reports she is recently treated for cellulitis of the right lower extremity and she was seen by a physician at [facility] (Dr. Nieto). She was admitted and startedon IV antibiotics. She had MRI of right leg and left foot also. She was then discharged to [facility] placement once stabilized. Objective Data Objective Data Vital Signs: Vital Signs Temp Pulse Resp BP O2 Del Method 97.7 F L 79 16 142/87 H Room Air 11/03/21 13:49 10/06/21 00:44 11/03/21 13:49 10/06/21 00:44 11/03/21 13:49 Oxygen Delivery Method Room Air Weight: 46.266 kg Body Mass Index (BMI) 18.6 Physical Exam Narrative Const alert and no apparent distress General Appearance: cooperative and comfortable okay Patient has overall frail appearance Extremity no calf tenderness, negative yasmine and baker sign No lower extremity edema General Extremity: tenderness to palpation palpable metatarsal heads. There is Significant fat pad atrophy noted with easily palpable metatarsal heads 1 through 5 bilaterally. Negative for clubbing or cyanosis or ecchymosis or erythema Vasc Peripheral Pulses: posterior tibial pulses absent and dorsalis pedis pulses present but diminished, normal capillary refill, no acute ischemic skin changes noted, cool temperature Skin General Skin Exam: dry flaky atrophic skin to entire bilateral lower extremities, absent hair growth noted; Negative for ecchymosis, eschar, pallor, rashes. Patient skin in general is in very poor condition. Her arms are noted to be extremely dark and discolored to her entire forearms. Wound Narrative: ulcers noted to plantar first metatarsal head left and lateral forefoot left. left subfirst metatarsal head ulceration. Bone continues to be exposed and is white and healthier in appearance-stable. Less serous drainage noted. No surrounding erythema or edema. No malodor, streaking, fluctuation, crepitus. Skin is atrophic and hairless. There is a lateral fifth metatarsal head ulcer that is fibrous and dry with exposed bone and without deep tissue necrosis or infection. There is significant amount of fat pad atrophy noted to bilateral feet secondary to patient's rheumatoid arthritis. There is noted minimal callus at previous ulceration sites. lateral right ankle ulcer is punctate with fibrous base that has subcutaneous tissue exposed. There is no probe to bone at this site however deep periosteal layer is suspected. There is also superficial new skin discontinuity with some hemorrhagic and partial dermal layer intact to the anterior mid leg. Right leg ulcer cluster with fibrinous base and serosanguineous drainage Bilateral lower extremities with scale buildup secondary likely to edema (mild to moderate) and lack of hygiene; slightly improved this week. Neuro: Gait (Neuro): heel to toe. Guarded, slow, and unsteady Sensory Exam: extremities light-touch: Intact Debridement Note Debridement Note Wound debrided: right: leg, lateral ankle,sub 1 MT head.left: sub1 MThead, lateral 5MTH. Wound Grade/Stage: Type of Debridement: Excisional debridement Anesthesia Used: 4% Lidocaine Solution Depth: in the subcutaneous layer Percentage of wound debrided: 100 Instrument Used: #15 blade Tissue Removed: fibrous, devitalized subcutaneous, biofilm, slough Severity: Fat Layer Exposed Amount of bleeding with debridement: Mild Bleeding Controlled with: Pressure Patient tolerated procedure: Patient tolerated procedure well Post-Debridement Measurements and Additional Note: Post-Debridement Measurements/Treatment - Nurse 1 - General Ulcer Assessment Start: 11/03/21 13:49 Freq: Status: Active Protocol: GEORGE Activity Type Activity Date Activity User E-sign Co-sign Detail Recorded Client Recorded Date Recorded By Document 11/03/21 13:49 [facility] [id number] 11/03/21 13:57 [facility] 11/03/21 13:49 - Today's Visit Information Type of service Follow-up Visit (Physician/SUPERVISOR FIREARMS ) Arrival Mode Wheelchair Transfer Assistance Other Transfer Assist (Other) 2 Patient Identification Verified (Name & Yes ) Patient Requires Transmission-Based No Precautions Height and Weight Body Mass Index (BMI) 18.6 BMI Classification Normal Vital Signs Temperature (97.8 F-99.1 F) 97.7 F L Temperature Source Temporal Respiratory Rate (12-18) 16 Respiratory rate source Observation Oxygen Delivery Method Room Air Comment PT REFUSES, ARMS SWOLLEN, SKIN VERY DELICATE History Since Last Visit- (Skip if this is Patient's initial visit) Any new allergies or adverse reactions No Had a fall/change in ADL's that may No increase risk of falls Signs or symptoms of abuse and/or No neglect since last visit Have you been in the hospital since your No last visit? Has dressing in place as prescribed Yes Has compression in place as prescribed No Has offloadiing in place as prescribed N/A Experienced any changes in pain level or No management Left Footwear Slipper Right Footwear Slipper Pain Scale: 0-10 Numeric Is Patient Pain Free? Yes - Nurse 1 - General Ulcer Measurement Start: 11/03/21 13:49 Freq: Status: Active Protocol: Activity Type Activity Date Activity User E-sign Co-sign Detail Recorded Client Recorded Date Recorded By Document 11/03/21 13:49 [facility] [id number] 11/03/21 13:57 [facility] 11/03/21 13:49 Wound Center Nurse 1 13-right parks cluster -Combined with other wound No -Current Size (cm) - Length 9 -Current Size (cm) - Width 8.5 -Current Size (cm) - Depth 0.1 -Total Square Cm 76.5 -Date of Last Picture (Recall this 11/03/21 field) -Photo Taken Yes -Epithelialization None Present -Tunneling No -Undermining/Tunneling No -Circular Undermining No -Exudate Amt None Present -Wound Margin Distinct, Outline Attached -Granulation Amt None Present (0 %) -Slough/Fibrin Yes -Necrosis Amt Large (67-100%) -Necrotic Tissue Type Adherent Slough -Texture (Анна-wound Skin Appearance) Assessed, Scarring -Moisture (Анна-wound Skin Appearance) Assessed,Dry/ Scaly -Color (Анна-wound Skin Appearance) Assessed, Hemosiderin Staining -Temperature (Анна-wound Skin No Abnormality Appearance) (Pt Warm) -Tenderness on Palpation (Анна-wound Yes Skin Appearance) -Ulcer Cleansing Rinsed/ Irrigated with Saline -Foul Odor after Cleansing No -Anesthetic Used 5% Lidocaine Gel 12. R lateral ankle -Combined with other wound No -Current Size (cm) - Length 0.9 -Current Size (cm) - Width 0.5 -Current Size (cm) - Depth 0.2 -Total Square Cm 0.45 -Date of Last Picture (Recall this 11/03/21 field) -Photo Taken Yes -Epithelialization None Present -Tunneling No -Undermining/Tunneling No -Circular Undermining No -Exudate Amt None Present -Wound Margin Distinct, Outline Attached -Granulation Amt None Present (0 %) -Slough/Fibrin Yes -Necrosis Amt Large (67-100%) -Necrotic Tissue Type Adherent Slough -Texture (Анна-wound Skin Appearance) Assessed -Moisture (Анна-wound Skin Appearance) Assessed -Color (Анна-wound Skin Appearance) Assessed -Temperature (Анна-wound Skin No Abnormality Appearance) (Pt Warm) -Tenderness on Palpation (Анна-wound No Skin Appearance) -Ulcer Cleansing Rinsed/ Irrigated with Saline -Foul Odor after Cleansing No -Anesthetic Used 5% Lidocaine Gel 10-left lateral foot 5th methead -Combined with other wound No -Current Size (cm) - Length 0.5 -Current Size (cm) - Width 0.8 -Current Size (cm) - Depth 0.1 -Total Square Cm 0.40 -Date of Last Picture (Recall this 11/03/21 field) -Photo Taken Yes -Tunneling No -Undermining/Tunneling No -Circular Undermining No -Exudate Amt None Present -Wound Margin Distinct, Outline Attached -Granulation Amt None Present (0 %) -Slough/Fibrin Yes -Necrosis Amt Large (67-100%) -Necrotic Tissue Type Adherent Slough -Texture (Анна-wound Skin Appearance) Assessed, Scarring -Moisture (Анна-wound Skin Appearance) Assessed -Color (Анна-wound Skin Appearance) Assessed -Temperature (Анна-wound Skin No Abnormality Appearance) (Pt Warm) -Tenderness on Palpation (Анна-wound No Skin Appearance) -Ulcer Cleansing Rinsed/ Irrigated with Saline -Foul Odor after Cleansing No -Anesthetic Used 5% Lidocaine Gel #9 LEFT MEDIAL FOOT -Combined with other wound No -Current Size (cm) - Length 0.4 -Current Size (cm) - Width 0.5 -Current Size (cm) - Depth 0.2 -Total Square Cm 0.20 -Date of Last Picture (Recall this 11/03/21 field) -Photo Taken Yes -Tunneling No -Undermining/Tunneling No -Circular Undermining No -Exudate Amt None Present -Wound Margin Distinct, Outline Attached -Granulation Amt None Present (0 %) -Slough/Fibrin Yes -Necrosis Amt Large (67-100%) -Necrotic Tissue Type Adherent Slough -Texture (Анна-wound Skin Appearance) Assessed, Scarring -Moisture (Анна-wound Skin Appearance) Assessed,Dry/ Scaly -Color (Анна-wound Skin Appearance) Assessed -Temperature (Анна-wound Skin No Abnormality Appearance) (Pt Warm) -Tenderness on Palpation (Анна-wound No Skin Appearance) -Ulcer Cleansing Rinsed/ Irrigated with Saline -Foul Odor after Cleansing No -Anesthetic Used 5% Lidocaine Gel Lower Limb Edema Present Yes Right Calf (cm) 30 Right Ankle (cm) 17 Left Calf (cm) 28 Left Ankle (cm) 16.5 WC - Nurse 3 - General Ulcer D/C NN Start: 11/03/21 13:49 Freq: Status: Active Protocol: Activity Type Activity Date Activity User E-sign Co-sign Detail Recorded Client Recorded Date Recorded By Document 11/03/21 15:09 [facility] [id number] 11/03/21 15:10 [facility] 11/03/21 15:09 Wound Care Nurse 3 13-right parks cluster -Ulcer Cleansing Rinsed/ Irrigated with Saline -Foul Odor after Cleansing No -Primary Dressing Applied Aquacel AG 4x4 -Primary Dressing Covered/Secured with Dry Gauze & Roll Gauze, Secured with Tape -Aquacel AG 4x4 1 12. R lateral ankle -Ulcer Cleansing Rinsed/ Irrigated with Saline -Foul Odor after Cleansing No -Primary Dressing Applied Aquacel AG 4x4 -Primary Dressing Covered/Secured with Dry Gauze & Roll Gauze, Secured with Tape -Aquacel AG 4x4 0 10-left lateral foot 5th methead -Ulcer Cleansing Rinsed/ Irrigated with Saline -Foul Odor after Cleansing No -Primary Dressing Applied Aquacel AG 4x4 -Primary Dressing Covered/Secured with Dry Gauze & Roll Gauze, Secured with Tape -Aquacel AG 4x4 0 #9 LEFT MEDIAL FOOT -Ulcer Cleansing Rinsed/ Irrigated with Saline -Foul Odor after Cleansing No -Primary Dressing Applied Aquacel AG 4x4 -Primary Dressing Covered/Secured with Dry Gauze & Roll Gauze, Secured with Tape -Aquacel AG 4x4 0 Right -Tubular Bandage Single Layer -Size of Tubigrip Used Size D -Size D ($) 1 Left -Tubular Bandage Single Layer -Size of Tubigrip Used Size D -Size D ($) 1 Treatment Response Procedure Tolerated Well Pain Scale: 0-10 Numeric Is Patient Pain Free? Yes - Visit Discharge Discharge Condition Stable Ambulatory Status Wheelchair Transportation Private Auto Accompanied by waits in lobby Facility Type Longterm Care Facility Assessment/Plan Assessment/Plan (1) Cellulitis of right lower limb: CODE(S): L03.115 - Cellulitis of right lower limb (2) Rheumatoid arthritis: CODE(S): M06.9 - Rheumatoid arthritis, unspecified QUALIFIERS: Laterality: bilateral Rheumatoid arthritis location: foot Rheumatoid factor presence: unspecified presence Qualified Code(s): M06.9 - Rheumatoid arthritis, unspecified (3) Fat pad atrophy of foot: CODE(S): L90.9 - Atrophic disorder of skin, unspecified (4) Osteomyelitis, chronic, ankle or foot: CODE(S): M86.679 - Other chronic osteomyelitis, unspecified ankle and foot (5) Delayed wound healing: CODE(S): T14.8XXD - Other injury of unspecified body region, subsequent encounter (6) Steroid long-term use: (7) PAD (peripheral artery disease): CODE(S): I73.9 - Peripheral vascular disease, unspecified (8) Chronic ulcer of left foot with necrosis of bone: CODE(S): L97.524 - Non-pressure chronic ulcer of other part of left foot with necrosis of bone (9) Difficulty in walking, not elsewhere classified: CODE(S): R26.2 - Difficulty in walking, not elsewhere classified (10) Chronic ulcer of right lower extremity with fat layer exposed: CODE(S): L97.912 - Non-pressure chronic ulcer of unspecified part of right lower leg with fat layer exposed (11) Chronic ulcer of right leg with fat layer exposed: CODE(S): L97.912 - Non-pressure chronic ulcer of unspecified part of right lower leg with fat layer exposed PLAN: Plan Patient seen and examined. Debridement was performed to the left foot as noted in the clinical nursing panel. Debridement was also performed to the right lower extremity ulcers as noted in the clinical nursing panel. Verbal consent was obtained and she tolerated this well. She continues to use the offloading inserts with significant improvement noted since beginning use however recently removed the left insole. Compliance was discussed. We discussed at length previously. the other more successful ways to offload wounds were not tolerated. she is not able to safely perform these due to her walking difficulty, balance, fall risk status. We discussed the benefits and risks of each opportunity. To continue wearing sneaker with offloading modification made recently. She is noted to use tubigrip; to continue bilateral. Discussed previously that the swelling may be cardiac in origin. She continues to follow-up with pocketed spring assembler as recommended previously. She had prior infections and was treated with infectious disease. There are no signs infection noted today. Patient was previously treated with linezolid and Flagyl per Dr. Clements. Patient cultures from 01/19/2021 demonstrated Staphylococcus epididymis and anaerobic cocci. no local signs of infection noted today. This has been completed. It is also noted that she was already treated for osteomyelitis and cellulitis at [facility] in which she was admitted and completed a course of iV antibiotics. Her WBC at time of admission was 14.4. She is now at a [place] [facility] facility and her med list was reviewed without active antibiotic use. Discussed with patient going a more palliative wound care route with her chronic nonhealing ulcerations especially given significant comorbidities and treatment of healing with medications. She elects to return biweekly. LEAS 06/30/20 showed moderate distal small vessel disease bilaterally at the digits. The left foot was noted to have biphasic pulses with CRUZ of 1.27 and TBI of 0.37. The left PT was noncompressible. The right foot PT and DP were noncompressible and TBI of 0.4 with triphasic and biphasic pulses. Patient had procedure with Dr Oseguera 07/21/20. Patient reports that the procedure went well. Dr. Oseguera is considering additional angiogram with intervention at this time. We discussed this at length today as she has put this process on hold to seek intervention for her back pain. I advised the patient to call and schedule and proceed forward with recommendations issue will likely not heal the ulcers with limited lower extremity blood flow and ongoing delays in treatment. She is very overwhelmed with all of her medical management and has placed a vascular plan on hold. She understands she is now on a palliative wound care plan.discussed again today. Discussed importance of non-smoking, blood sugar control, weight management, offloading, proper nutrition, and hygiene to optimize healing potential. She denies home health and physical therapy in her home on a routine basis and encouraged continued participation. Discussed that her chronic steroid use for her RA can impact wound healing as well as impact her body's ability to mount an immune response. We discussed the option of transitioning her back to her medications under the management of her maple sugar maker. I do not think this would benefit her wound healing progression however she understands if she is having flareups and needs to return to the medication that is okay to proceed forward with more of a palliative type wound care plan. She sees Dr. Tovar. She has resumed. Discussed the importance of proper nutrition including getting enough protein in her diet to help with healing. Prior bone biopsy 01/05/2021 results of the first metatarsal head on the left foot confirm diagnosis of osteomyelitis infection. Previously obtained MRI also showed osteomyelitis. Patient has undergone multiple rounds of antibiotic treatments per Dr. Clements in infectious disease for this. Surgical treatment options were also discussed with patient but it was decided that it was not worth the risk of potentially creating a larger wound that potentially more bacteria could then get into to infect the wound. Patient is a poor surgical candidate. Updated left foot x-ray ordered. Updated left foot x-ray did not demonstrate any progressive osseous destruction soft tissue emphysema or foreign body. She also has decreased bone density noted on this foot. Patient previously saw Dr. Steinberg for HBO evaluation. This was given prior to patient's recent heart attack and hospital admission. Patient will need to get cardiac clearance prior to being approved for HBO. This was not given at this time. We will potentially reconsider HBO therapy in the future if ever given cardiac clearance. We will hold off on this due to her recent fatigue symptoms. Encouraged protein rich diet and protein supplements. Discussed Vick supplementation. Patient is overall frail appearance with muscle atrophy noted. All questions answered. She is stable and will follow up in 3 weeks. She is on a palliative plan and feels very overwhelmed with coming to clinic on a routine basis. Dressings: Continue wound care to foot ulcerations daily. To use Aquacel silver to subfirst metatarsal head ulcer site and hydrogel to other ulcers of bilateral lower extremities. To moisturize the legs and feet daily. This note was generated with Info dictation software. It may contain incorrect words, spelling, and punctuation that were not noted in checking the note before signing. 22 minutes was spent on this encounter. This included face to face and non face to face care including preparing for the visit, reviewing the history, performing the exam, counseling and providing education to the patient, family, or caregiver, ordering medications/test/ procedures if indicated as documented, communicating with other healthcare providers, documenting information in the medical record, interpreting / sharing this information when indicated as documented, and care coordination. The medical decision making level is limited based on data including the review of prior external notes, review of a prior test, or ordering a test.
== END 2021-11-04 23:59 | disposition home or self-care (01) ==
LOC: WC 13:56
PROVIDERS: PCP Physician Assistant; Visit Provider Podiatrist
DX: L03.115 Cellulitis of right lower limb (principal); L97.524 Non-pressure chronic ulcer of other part of left foot with necrosis of bone; L97.912 Non-pressure chronic ulcer of unspecified part of right lower leg with fat layer exposed; M06.9 Rheumatoid arthritis, unspecified; M86.679 Other chronic osteomyelitis, unspecified ankle and foot; I73.9 Peripheral vascular disease, unspecified; R26.2 Difficulty in walking, not elsewhere classified; L90.9 Atrophic disorder of skin, unspecified; T14.8XXD Other injury of unspecified body region, subsequent encounter
CPT/HCPCS: 11042; 11045

== ENCOUNTER 2021-12-01 08:17 | Outpatient (RCR) | payer MEDICARE, SELFPAY ==
[2021-11-05 00:27] VITALS: BP 142/87; PULSE 79; RESP 16; TEMP 36.5; BMI 18.6
[2021-12-01 08:17] VITALS: BP 128/70; PULSE 84; RESP 18; TEMP 36.6; BMI 18.6
--- NOTE | 2021-12-01 09:01 | PN.PCM_ITS ---
History of Present Illness Date of Service: 12/01/21 Chief Complaint: Left 1st metatarsal ulceration with chronic refractory os teomyelitis of the left first metatarsal left foot ulcer right ankle and leg ulcers (new proximal leg ulcer and heel blister with wound) right foot ulcer sub 1st metatarsal head right lateral ankle ulcer History of Wound: Kylah is a 76-year-old female who was referred here for treatment bilateral lower extremity ulcerations. Patient is noted to have significant fat pad atrophy likely secondary to her rheumatoid arthritis. Patient is on multiple medications for her rheumatoid arthritis which are impeding her wound healing. Patient is also prone to breakdown given lack of fat pad. Patient noted to have had MRIs which showed osteomyelitis and has been treated by Dr. Clements with antibiotic treatments. Patient is a poor surgical candidate given her poor healing status and multiple comorbidities. The patient has had vascular studies on 06/30/20 showed moderate distal small vessel disease bilaterally at the digits with some non compressible vessels. Patient saw her vascular surgeon, Dr. Oseguera, who did intervention on the patient on 07/21/20. Dr. Oseguera is considering additional angiogram with intervention. This exact plan is pending and actually put on hold at this time per the patient to focus on her other medical conditions at this time. She had recent back pain exacerbation and also recently had a fall in which she was admitted to the hospital. She now has home health and physical therapy coming to the home for her assistance. Her was also recently diagnosed with cancer and all of this is very overwhelming for her at this time. She has had some improvements with applying lotion to the legs and has some intermittent help showering. 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 These are acknowledged to be possible inhibitors to wound healing. Patient noted to have painful feet due to her rheumatoid arthritis. Patient is also noted to have had recent heart attack and has been started on blood thinners for this. She offloads with Plastizote accommodative inserts in her shoes and slippers at home. She is a fall risk and was previously unable to wear surgical offloading shoes or boots. This was at modified by cutting a hole in the shoe to offload the entire side of the foot. She denies fever, chills, nausea, vomiting. She continues on antibiotics for a blood infection. She resides at [facility]. She also complains she fell 2 weeks ago and has a skin tear/wound to her right leg Progress of Wound: new right leg and heel wounds others stable improving right anterior leg Objective Data Objective Data Vital Signs: Vital Signs Temp Pulse Resp BP 97.8 F 84 18 128/70 H 12/01/21 08:17 12/01/21 08:17 12/01/21 08:17 12/01/21 08:17 Weight: 46.266 kg Body Mass Index (BMI) 18.6 Physical Exam Narrative Const alert and no apparent distress General Appearance: cooperative and comfortable okay Patient has overall frail appearance Extremity no calf tenderness, negative yasmine and baker sign No lower extremity edema General Extremity: tenderness to palpation palpable metatarsal heads. There is Significant fat pad atrophy noted with easily palpable metatarsal heads 1 through 5 bilaterally. Negative for clubbing or cyanosis or ecchymosis or erythema Vasc Peripheral Pulses: posterior tibial pulses absent and dorsalis pedis pulses present but diminished, normal capillary refill, no acute ischemic skin changes noted, cool temperature Skin General Skin Exam: dry flaky atrophic skin to entire bilateral lower extremities, absent hair growth noted; Negative for ecchymosis, eschar, pallor, rashes. Patient skin in general is in very poor condition. Her arms are noted to be extremely dark and discolored to her entire forearms. Wound Narrative: ulcers noted to plantar first metatarsal head left and lateral forefoot left. left subfirst metatarsal head ulceration. Bone continues to be exposed and is white and healthier in appearance-stable. Less serous drainage noted. No surrounding erythema or edema. No malodor, streaking, fluctuation, crepitus. Skin is atrophic and hairless. There is a lateral fifth metatarsal head ulcer that is fibrous and dry with exposed bone and without deep tissue necrosis or infection. There is significant amount of fat pad atrophy noted to bilateral feet secondary to patient's rheumatoid arthritis. There is noted minimal callus at previous ulceration sites. lateral right ankle ulcer is punctate with fibrous base that has subcutaneous tissue exposed. There is no probe to bone at this site however deep periosteal layer is suspected. There is also superficial new skin discontinuity with some hemorrhagic and partial dermal layer intact to the anterior mid leg with new peripheral epithelialization Right leg ulcer cluster with fibrinous base and serosanguineous drainage new proximal anterior lateral leg ulcer from prior laceration now with granular fibrous base 80:20%. Bilateral lower extremities with scale buildup secondary likely to edema (mild to moderate) and lack of hygiene; slightly improved this week. Neuro: Gait (Neuro): heel to toe. Guarded, slow, and unsteady Sensory Exam: extremities light-touch: Intact Debridement Note Debridement Note Wound debrided: right: leg x 2, lag ankle,sub 1 MT head left: sub1 MThead, lateral 5MTH. Wound Grade/Stage: Type of Debridement: Excisional debridement Anesthesia Used: 4% Lidocaine Solution Depth: in the subcutaneous layer Percentage of wound debrided: 100 Instrument Used: #15 blade Tissue Removed: fibrous, devitalized subcutaneous, biofilm, slough Severity: Fat Layer Exposed Amount of bleeding with debridement: Mild Bleeding Controlled with: Pressure Patient tolerated procedure: Patient tolerated procedure well Post-Debridement Measurements and Additional Note: Post-Debridement Measurements/Treatment - Nurse 1 - General Ulcer Assessment Start: 12/01/21 08:17 Freq: Status: Active Protocol: GEORGE Activity Type Activity Date Activity User E-sign Co-sign Detail Recorded Client Recorded Date Recorded By Document 12/01/21 08:17 [id number] 12/01/21 08:33 RB 12/01/21 08:17 - Today's Visit Information Type of service Follow-up Visit (Physician/ANIMAL EVISCERATOR ) Arrival Mode Wheelchair Transfer Assistance Manual Patient Identification Verified (Name & Yes ) Patient Requires Transmission-Based No Precautions Height and Weight Body Mass Index (BMI) 18.6 BMI Classification Normal Vital Signs Temperature (97.8 F-99.1 F) 97.8 F Temperature Source Temporal Pulse Rate (60-100) 84 Pulse Location Monitor Respiratory Rate (12-18) 18 Respiratory rate source Observation Blood Pressure (90/60-120/80) 128/70 H Blood Pressure Mean (mm Hg) 89 Source Monitor Position Semi-Fowlers Blood Pressure Location Left Arm History Since Last Visit- (Skip if this is Patient's initial visit) Have you changed medications since your No last visit? Any new allergies or adverse reactions No Had a fall/change in ADL's that may No increase risk of falls Signs or symptoms of abuse and/or No neglect since last visit Have you been in the hospital since your No last visit? Has dressing in place as prescribed Yes Has compression in place as prescribed No Has offloadiing in place as prescribed No Experienced any changes in pain level or No management Left Footwear Slipper Right Footwear Slipper Pain Scale: 0-10 Numeric Is Patient Pain Free? No lower legs bilat\ -Description Aching -Intensity 3 -Duration (hours) Chronic -Pain Behavior Irritability -Pain Aggravating Factors Exercise/ Activity -Alleviating Factors/Interventions Medication -Effectiveness of Alleviating Factor/ Moderately Intervention effective WC - Nurse 1 - General Ulcer Measurement Start: 12/01/21 08:17 Freq: Status: Active Protocol: Activity Type Activity Date Activity User E-sign Co-sign Detail Recorded Client Recorded Date Recorded By Document 12/01/21 08:17 RB [id number] 12/01/21 08:33 RB 12/01/21 08:17 Wound Center Nurse 1 20. LLE lateral below knee -Combined with other wound No -Current Size (cm) - Length 2.4 -Current Size (cm) - Width 0.8 -Current Size (cm) - Depth 0.1 -Total Square Cm 1.92 -Photo Taken Yes -Tunneling No -Undermining/Tunneling No -Circular Undermining No -Exudate Amt Medium -Exudate Type Serosanguineous -Wound Margin Distinct, Outline Attached -Granulation Amt Medium (34-66%) -Granulation Quality [place] -Slough/Fibrin Yes -Necrosis Amt Small (1-33%) -Necrotic Tissue Type Adherent Slough -Structure Exposed N/A -Texture (Анна-wound Skin Appearance) Assessed -Moisture (Анна-wound Skin Appearance) Dry/Scaly -Color (Анна-wound Skin Appearance) Assessed -Temperature (Анна-wound Skin No Abnormality Appearance) (Pt Warm) -Tenderness on Palpation (Анна-wound No Skin Appearance) -Ulcer Cleansing Wound Cleanser -Foul Odor after Cleansing No -Anesthetic Used 4% Lidocaine Solution #19 R LE CLUSTER -Combined with other wound No -Current Size (cm) - Length 0.5 -Current Size (cm) - Width 0.3 -Current Size (cm) - Depth 0.1 -Total Square Cm 0.15 -Photo Taken Yes -Tunneling No -Undermining/Tunneling No -Circular Undermining No -Exudate Amt Medium -Exudate Type Serosanguineous -Wound Margin Distinct, Outline Attached -Granulation Amt Medium (34-66%) -Granulation Quality [place] -Slough/Fibrin Yes -Necrosis Amt Medium (34-66%) -Necrotic Tissue Type Adherent Slough -Structure Exposed N/A -Texture (Анна-wound Skin Appearance) Assessed -Moisture (Анна-wound Skin Appearance) Maceration -Color (Анна-wound Skin Appearance) Assessed -Temperature (Анна-wound Skin Cool/Cold Appearance) -Tenderness on Palpation (Анна-wound No Skin Appearance) -Ulcer Cleansing Wound Cleanser -Foul Odor after Cleansing No -Anesthetic Used 4% Lidocaine Solution #18 R LAT ANKLE -Combined with other wound No -Current Size (cm) - Length 1 -Current Size (cm) - Width 0.9 -Current Size (cm) - Depth 0.2 -Total Square Cm 0.9 -Photo Taken Yes -Tunneling No -Undermining/Tunneling No -Circular Undermining No -Exudate Amt Medium -Exudate Type Serosanguineous -Wound Margin Distinct, Outline Attached -Granulation Amt Medium (34-66%) -Granulation Quality [place] -Slough/Fibrin Yes -Necrosis Amt Medium (34-66%) -Necrotic Tissue Type Adherent Slough -Structure Exposed N/A -Texture (Анна-wound Skin Appearance) Assessed -Moisture (Анна-wound Skin Appearance) Dry/Scaly -Color (Анна-wound Skin Appearance) Assessed -Temperature (Анна-wound Skin Cool/Cold Appearance) -Tenderness on Palpation (Анна-wound No Skin Appearance) -Ulcer Cleansing Wound Cleanser -Foul Odor after Cleansing No -Anesthetic Used 4% Lidocaine Solution #17 LL FOOT 5TH MET -Combined with other wound No -Current Size (cm) - Length 0.5 -Current Size (cm) - Width 0.7 -Current Size (cm) - Depth 0.3 -Total Square Cm 0.35 -Photo Taken Yes -Tunneling No -Undermining/Tunneling No -Circular Undermining No -Exudate Amt Medium -Exudate Type Serous -Wound Margin Distinct, Outline Attached -Granulation Amt Medium (34-66%) -Granulation Quality [place] -Slough/Fibrin Yes -Necrosis Amt Medium (34-66%) -Necrotic Tissue Type Adherent Slough -Structure Exposed N/A -Texture (Анна-wound Skin Appearance) Assessed -Moisture (Анна-wound Skin Appearance) Dry/Scaly -Color (Анна-wound Skin Appearance) Assessed -Temperature (Анна-wound Skin No Abnormality Appearance) (Pt Warm) -Tenderness on Palpation (Анна-wound No Skin Appearance) -Ulcer Cleansing Wound Cleanser -Foul Odor after Cleansing No -Anesthetic Used 4% Lidocaine Solution #16 L MEDIAL FOOT -Combined with other wound No -Current Size (cm) - Length 0.5 -Current Size (cm) - Width 0.8 -Current Size (cm) - Depth 0.3 -Total Square Cm 0.40 -Photo Taken Yes -Tunneling No -Undermining/Tunneling No -Circular Undermining No -Exudate Amt Medium -Exudate Type Serosanguineous -Wound Margin Distinct, Outline Attached -Granulation Amt Medium (34-66%) -Granulation Quality [place] -Slough/Fibrin Yes -Necrosis Amt Medium (34-66%) -Necrotic Tissue Type Adherent Slough -Structure Exposed N/A -Texture (Анна-wound Skin Appearance) Assessed -Moisture (Анна-wound Skin Appearance) Dry/Scaly -Color (Анна-wound Skin Appearance) Assessed -Temperature (Анна-wound Skin No Abnormality Appearance) (Pt Warm) -Tenderness on Palpation (Анна-wound No Skin Appearance) -Ulcer Cleansing Wound Cleanser -Foul Odor after Cleansing No -Anesthetic Used 4% Lidocaine Solution WC - Nurse 2 - General Ulcer CM Notes Start: 12/01/21 08:17 Freq: Status: Active Protocol: Activity Type Activity Date Activity User E-sign Co-sign Detail Recorded Client Recorded Date Recorded By Document 12/01/21 08:41 REJI [id number] 12/01/21 08:48 JF Edit Result 12/01/21 08:41 JF (1) [id number] 12/01/21 08:51 JF (1) 21-right lateral ankle - Correct Patient => No - Correct Side, Site, Position => No - Correct Procedure => No - Procedure Performed => No - Post Debridement (cm) - Length => 2.5 - Post Debridement (cm) - Width => 3.5 - Post Debridement (cm) - Depth => 0.1 - Total Square (Post) (cm) => 8.75 - Area of Debridement (cm) - Length => 2.5 - Area of Debridement (cm) - Width => 3.5 - Total Square (Area) (cm) => 8.75 - Wound/Ulcer Outcome => Not Healed 12/01/21 08:41 Wound Center Nurse 2 21-right lateral ankle -Correct Patient No -Correct Side, Site, Position No -Correct Procedure No -Procedure Performed No -Post Debridement (cm) - Length 2.5 -Post Debridement (cm) - Width 3.5 -Post Debridement (cm) - Depth 0.1 -Total Square (Post) (cm) 8.75 -Area of Debridement (cm) - Length 2.5 -Area of Debridement (cm) - Width 3.5 -Total Square (Area) (cm) 8.75 -Wound/Ulcer Outcome Not Healed 20. LLE lateral below knee -Time 08:41 -Correct Patient Yes -Correct Side, Site, Position Yes -Correct Procedure Yes -Procedure Performed Yes -Type of Procedure Debridement -Clinical Debridement Subcutaneous -Tissue Removed Subcutaneous -Post Debridement (cm) - Length 2.5 -Post Debridement (cm) - Width 0.8 -Post Debridement (cm) - Depth 0.1 -Total Square (Post) (cm) 2.00 -Area of Debridement (cm) - Length 2.5 -Area of Debridement (cm) - Width 0.8 -Total Square (Area) (cm) 2.00 -Tunneling No -Undermining/Tunneling No -Circular Undermining No -Wound/Ulcer Outcome Not Healed -Ulcer Cleansing Rinsed/ Irrigated with Saline -Foul Odor after Cleansing No -Bioengineered Tissue No -Bleeding Controlled with Pressure -Treatment Response Procedure Tolerated Well -Offloading No -Debridement - Subq, 1st 20sq cm No #19 R LE CLUSTER -Time 08:42 -Correct Patient Yes -Correct Side, Site, Position Yes -Correct Procedure Yes -Procedure Performed Yes -Type of Procedure Debridement -Clinical Debridement Subcutaneous -Tissue Removed Subcutaneous -Post Debridement (cm) - Length 0.5 -Post Debridement (cm) - Width 0.4 -Post Debridement (cm) - Depth 0.1 -Total Square (Post) (cm) 0.20 -Area of Debridement (cm) - Length 0.5 -Area of Debridement (cm) - Width 0.4 -Total Square (Area) (cm) 0.20 -Tunneling No -Undermining/Tunneling No -Circular Undermining No -Wound/Ulcer Outcome Not Healed -Ulcer Cleansing Rinsed/ Irrigated with Saline -Foul Odor after Cleansing No -Bioengineered Tissue No -Bleeding Controlled with Pressure -Treatment Response Procedure Tolerated Well -Offloading No -Debridement - Subq, 1st 20sq cm No #18 R LAT ANKLE -Time 08:42 -Correct Patient Yes -Correct Side, Site, Position Yes -Correct Procedure Yes -Procedure Performed Yes -Type of Procedure Debridement -Clinical Debridement Subcutaneous -Tissue Removed Subcutaneous -Post Debridement (cm) - Length 1 -Post Debridement (cm) - Width 1 -Post Debridement (cm) - Depth 0.2 -Total Square (Post) (cm) 1 -Area of Debridement (cm) - Length 1 -Area of Debridement (cm) - Width 1 -Total Square (Area) (cm) 1 -Tunneling No -Undermining/Tunneling No -Circular Undermining No -Wound/Ulcer Outcome Not Healed -Bioengineered Tissue No -Bleeding Controlled with Pressure -Treatment Response Procedure Tolerated Well -Offloading No -Debridement - Subq, 20sq cm No #17 LL FOOT 5TH MET -Time 08:43 -Correct Patient Yes -Correct Side, Site, Position Yes -Correct Procedure Yes -Procedure Performed Yes -Type of Procedure Debridement -Clinical Debridement Subcutaneous -Tissue Removed Subcutaneous -Post Debridement (cm) - Length 0.5 -Post Debridement (cm) - Width 0.8 -Post Debridement (cm) - Depth 0.2 -Total Square (Post) (cm) 0.40 -Area of Debridement (cm) - Length 0.5 -Area of Debridement (cm) - Width 0.8 -Total Square (Area) (cm) 0.40 -Tunneling No -Undermining/Tunneling No -Circular Undermining No -Wound/Ulcer Outcome Not Healed -Ulcer Cleansing Rinsed/ Irrigated with Saline -Foul Odor after Cleansing No -Bioengineered Tissue No -Bleeding Controlled with Pressure -Treatment Response Procedure Tolerated Well -Offloading No -Debridement - Subq, 1st 20sq cm No #16 L MEDIAL FOOT -Time 08:43 -Correct Patient Yes -Correct Side, Site, Position Yes -Correct Procedure Yes -Procedure Performed Yes -Type of Procedure Debridement -Clinical Debridement Subcutaneous -Tissue Removed Subcutaneous -Post Debridement (cm) - Length 0.5 -Post Debridement (cm) - Width 0.9 -Post Debridement (cm) - Depth 0.3 -Total Square (Post) (cm) 0.45 -Area of Debridement (cm) - Length 0.5 -Area of Debridement (cm) - Width 0.9 -Total Square (Area) (cm) 0.45 -Tunneling No -Undermining/Tunneling No -Circular Undermining No -Wound/Ulcer Outcome Not Healed -Ulcer Cleansing Rinsed/ Irrigated with Saline -Foul Odor after Cleansing No -Bioengineered Tissue No -Bleeding Controlled with Pressure -Treatment Response Procedure Tolerated Well -Offloading No -Debridement - Subq, 1st 20sq cm No Pain Scale: 0-10 Numeric Is Patient Pain Free? Yes Assessment/Plan Assessment/Plan (1) Chronic ulcer of left foot with necrosis of bone: CODE(S): L97.524 - Non-pressure chronic ulcer of other part of left foot with necrosis of bone (2) Chronic ulcer of right lower extremity with fat layer exposed: CODE(S): L97.912 - Non-pressure chronic ulcer of unspecified part of right lower leg with fat layer exposed (3) Rheumatoid arthritis: CODE(S): M06.9 - Rheumatoid arthritis, unspecified QUALIFIERS: Rheumatoid arthritis location: foot Rheumatoid factor presence: unspecified presence Laterality: bilateral Qualified Code(s): M06.9 - Rheumatoid arthritis, unspecified (4) Fat pad atrophy of foot: CODE(S): L90.9 - Atrophic disorder of skin, unspecified (5) Osteomyelitis, chronic, ankle or foot: CODE(S): M86.679 - Other chronic osteomyelitis, unspecified ankle and foot (6) Delayed wound healing: CODE(S): T14.8XXD - Other injury of unspecified body region, subsequent encounter (7) Steroid long-term use: (8) PAD (peripheral artery disease): CODE(S): I73.9 - Peripheral vascular disease, unspecified (9) Cellulitis of right lower limb: CODE(S): L03.115 - Cellulitis of right lower limb (10) Difficulty in walking, not elsewhere classified: CODE(S): R26.2 - Difficulty in walking, not elsewhere classified (11) Chronic ulcer of right foot with fat layer exposed: CODE(S): L97.512 - Non-pressure chronic ulcer of other part of right foot with fat layer exposed (12) Blister (nonthermal), right foot, initial encounter: CODE(S): S90.821A - Blister (nonthermal), right foot, initial encounter PLAN: Plan Patient seen and examined. Debridement was performed to the left foot as noted in the clinical nursing panel. Debridement was also performed to the right lower extremity ulcers as noted in the clinical nursing panel. Verbal consent was obtained and she tolerated this well. She continues to use the offloading inserts with significant improvement noted since beginning use however recently removed the left insole. Compliance was discussed. We discussed at length previously. the other more successful ways to offload wounds were not tolerated. she is not able to safely perform these due to her walking difficulty, balance, fall risk status. We discussed the benefits and risks of each opportunity. To continue wearing sneaker with offloading modification made recently. She is noted to use tubigrip; to continue bilateral. Discussed previously that the swelling may be cardiac in origin. She continues to follow-up with director of sustainability as recommended previously. She had prior infections and was treated with infectious disease. There are no signs infection noted today. Patient was previously treated with linezolid and Flagyl per Dr. Clements. Patient cultures from 01/19/2021 demonstrated Staphylococcus epididymis and anaerobic cocci. no local signs of infection noted today. This has been completed. It is also noted that she was already treated for osteomyelitis and cellulitis at [facility] in which she was admitted and completed a course of iV antibiotics. Her WBC at time of admission was 14.4. She is now at a senior care facility with active antibiotic use. to continue per medical doctor for her reported bacteremia. Discussed with patient going a more palliative wound care route with her chronic nonhealing ulcerations especially given significant comorbidities and treatment of healing with medications. She elects to return biweekly. LEAS 06/30/20 showed moderate distal small vessel disease bilaterally at the digits. The left foot was noted to have biphasic pulses with CRUZ of 1.27 and TBI of 0.37. The left PT was noncompressible. The right foot PT and DP were noncompressible and TBI of 0.4 with triphasic and biphasic pulses. Patient had procedure with Dr Oseguera 07/21/20. Patient reports that the procedure went well. Dr. Oseguera is considering additional angiogram with intervention at this time. We discussed this at length today as she has put this process on hold to seek intervention for her back pain. I advised the patient to call and schedule and proceed forward with recommendations issue will likely not heal the ulcers with limited lower extremity blood flow and ongoing delays in treatment. She is very overwhelmed with all of her medical management and has placed a vascular plan on hold. She understands she is now on a palliative wound care plan.discussed again today. Discussed importance of non-smoking, blood sugar control, weight management, offloading, proper nutrition, and hygiene to optimize healing potential. She denies home health and physical therapy in her home on a routine basis and encouraged continued participation. Discussed that her chronic steroid use for her RA can impact wound healing as well as impact her body's ability to mount an immune response. We discussed the option of transitioning her back to her medications under the management of her corporate financial analyst. I do not think this would benefit her wound healing progression however she understands if she is having flareups and needs to return to the medication that is okay to proceed forward with more of a palliative type wound care plan. She sees Dr. Tovar. She has resumed. Discussed the importance of proper nutrition including getting enough protein in her diet to help with healing. Prior bone biopsy 01/05/2021 results of the first metatarsal head on the left foot confirm diagnosis of osteomyelitis infection. Previously obtained MRI also showed osteomyelitis. Patient has undergone multiple rounds of antibiotic treatments per Dr. Clements in infectious disease for this. Surgical treatment options were also discussed with patient but it was decided that it was not worth the risk of potentially creating a larger wound that potentially more bacteria could then get into to infect the wound. Patient is a poor surgical candidate. Updated left foot x-ray ordered. Updated left foot x-ray did not demonstrate any progressive osseous destruction soft tissue emphysema or foreign body. She also has decreased bone density noted on this foot. Patient previously saw Dr. Steinberg for HBO evaluation. This was given prior to patient's recent heart attack and hospital admission. Patient will need to get cardiac clearance prior to being approved for HBO. This was not given at this time. We will potentially reconsider HBO therapy in the future if ever given cardiac clearance. We will hold off on this due to her recent fatigue symptoms. Encouraged protein rich diet and protein supplements. Discussed Vick supplementation. Patient is overall frail appearance with muscle atrophy noted. All questions answered. She is stable and will follow up in 3 weeks. She is on a palliative plan and feels very overwhelmed with coming to clinic on a routine basis. Dressings: Continue wound care to foot ulcerations daily. To use Aquacel silver to subfirst metatarsal head ulcer site and hydrogel to other ulcers of bilateral lower extremities. Adaptic to right heel To moisturize the legs and feet daily. Blister right heel was addressed by removing overlying loose skin. To offload while in bed by hanging heels over stacked pillows. PRAFO boot ordered also. Her new laceration s/p fall right proximal leg also noted. To change dressing daily. She was reassured no infection or deep tissue exposure noted. This note was generated with [employer] dictation software. It may contain incorrect words, spelling, and punctuation that were not noted in checking the note before signing. 21 minutes was spent on this encounter. This included face to face and non face to face care including preparing for the visit, reviewing the history, performing the exam, counseling and providing education to the patient, family, or caregiver, ordering medications/test/ procedures if indicated as documented, communicating with other healthcare providers, documenting information in the medical record, interpreting / sharing this information when indicated as documented, and care coordination. The medical decision making level is limited based on data including the review of prior external notes, review of a prior test, or ordering a test.
== END 2021-12-05 23:59 | disposition home or self-care (01) ==
LOC: WC 08:17
PROVIDERS: PCP Physician Assistant; Visit Provider Podiatrist
DX: L03.115 Cellulitis of right lower limb (principal); L97.524 Non-pressure chronic ulcer of other part of left foot with necrosis of bone; L97.912 Non-pressure chronic ulcer of unspecified part of right lower leg with fat layer exposed; L97.512 Non-pressure chronic ulcer of other part of right foot with fat layer exposed; M06.9 Rheumatoid arthritis, unspecified; M86.679 Other chronic osteomyelitis, unspecified ankle and foot; I73.9 Peripheral vascular disease, unspecified; M54.9 Dorsalgia, unspecified; R26.2 Difficulty in walking, not elsewhere classified; L90.9 Atrophic disorder of skin, unspecified; T14.8XXD Other injury of unspecified body region, subsequent encounter; S90.821A Blister (nonthermal), right foot, initial encounter
CPT/HCPCS: 11042

== ENCOUNTER 2021-12-22 08:59 | Outpatient (RCR) | payer MEDICARE, SELFPAY ==
[2021-12-06 00:23] VITALS: BP 128/70; PULSE 84; RESP 18; TEMP 36.6; BMI 18.6
[2021-12-22 09:11] VITALS: BP 160/90; PULSE 99; RESP 18; TEMP 36.1; BMI 18.6
--- NOTE | 2021-12-22 09:44 | PN.PCM_ITS ---
History of Present Illness Date of Service: 12/22/21 Chief Complaint: Left 1st metatarsal ulceration with chronic refractory os teomyelitis of the left first metatarsal left foot ulcer right ankle and leg ulcers (heel wound has clarified itself) right foot ulcer sub 1st metatarsal head right lateral ankle ulcer History of Wound: Kylah is a 76-year-old female who was referred here for treatment bilateral lower extremity ulcerations. Patient is noted to have significant fat pad atrophy likely secondary to her rheumatoid arthritis. Patient is on multiple medications for her rheumatoid arthritis which are impeding her wound healing. Patient is also prone to breakdown given lack of fat pad. Patient noted to have had MRIs which showed osteomyelitis and has been treated by Dr. Clements with antibiotic treatments. Patient is a poor surgical candidate given her poor healing status and multiple comorbidities. She has recently [facility] home from [facility] including physical therapy, wound care, and IV antibiotics for refractory foot osteomyelitis and bacteremia. The patient has had vascular studies on 06/30/20 showed moderate distal small vessel disease bilaterally at the digits with some non compressible vessels. Patient saw her vascular surgeon, Dr. Oseguera, who did intervention on the patient on 07/21/20. Dr. Oseguera is considering additional angiogram with intervention. This exact plan is pending and actually put on hold at this time per the patient to focus on her other medical conditions at this time. She has now returned home and will consider this follow up due to recent worsening deterioration of both feet. The patient is noted to be a prior group home user of prednisone and methotrexate for her rheumatoid arthritis. These are acknowledged to be possible inhibitors to wound healing. Patient noted to have painful feet due to her rheumatoid arthritis. Patient is also noted to have had recent heart attack and has been started on blood thinners for this. She offloads with Plastizote accommodative inserts in her shoes and slippers at home. She is a fall risk and was previously unable to wear surgical offloading shoes or boots. This was at modified by cutting a hole in the shoe to offload the entire side of the foot. She wears these only sometimes and present with slippers today (not recommended). She denies fever, chills, nausea, vomiting. Progress of Wound: worse bilateral improving right leg Objective Data Objective Data Vital Signs: Vital Signs Temp Pulse Resp BP 97 F L 99 18 160/90 H 12/22/21 09:11 12/22/21 09:11 12/22/21 09:11 12/22/21 09:11 Weight: 46.266 kg Body Mass Index (BMI) 18.6 Physical Exam Const alert and oriented x3 Extremity Extremity Narrative: No calf tenderness Diminished pulses. CFT more delayed on left toes 2,3,4,5 Muscle wasting noted reduced right leg ulcer and healed proximal leg ulcer unchanged lateral right ankle ulcer - granular and fibrous base right sub 1st metatarsal head ulcer with fibrous base heel now with blister and non adhered eschar upon removal with fibrous and granular tissue. no probe to deep structures or bone left foot sub 1st metatarsal head ulcer and lateral forefoot ulcer with continued exposed bone and now eschar progression General Extremity: edema and no tenderness to palpation of joints or extremities; Negative for cyanosis Skin Skin Narrative: no purulence, no streaking, no odor, no infection General Skin Exam: Negative for erythema Neuro Neuro Narrative: lack of normal epicritic sensation via light touch is consistent with neuropathy status Psych cooperative Debridement Note Debridement Note Wound debrided: right: leg x 2, lat ankle,sub 1 MT head left: sub1 MThead, lateral 5MTH. Wound Grade/Stage: Type of Debridement: Excisional debridement Anesthesia Used: 4% Lidocaine Solution Depth: in the subcutaneous layer Percentage of wound debrided: 100 Instrument Used: #15 blade Tissue Removed: fibrous, devitalized subcutaneous, biofilm, slough Severity: Fat Layer Exposed Amount of bleeding with debridement: Mild Bleeding Controlled with: Pressure Patient tolerated procedure: Patient tolerated procedure well Post-Debridement Measurements and Additional Note: Post-Debridement Measurements/Treatment - Nurse 1 - General Ulcer Assessment Start: 12/22/21 09:11 Freq: Status: Active Protocol: [email or web address] Activity Type Activity Date Activity User E-sign Co-sign Detail Recorded Client Recorded Date Recorded By Document 12/22/21 09:11 [facility] [id number] 12/22/21 09:30 [facility] 12/22/21 09:11 - Today's Visit Information Type of service Follow-up Visit (Physician/ENFORCEMENT OFFICER ) Arrival Mode Wheelchair Transfer Assistance Manual,Other Patient Identification Verified (Name & Yes ) Patient Requires Transmission-Based No Precautions Height and Weight Body Mass Index (BMI) 18.6 BMI Classification Normal Vital Signs Temperature (97.8 F-99.1 F) 97 F L Temperature Source Temporal Pulse Rate (60-100) 99 Pulse Location Monitor Respiratory Rate (12-18) 18 Respiratory rate source Observation Blood Pressure (90/60-120/80) 160/90 H Blood Pressure Mean (mm Hg) 113 Source Monitor Position Semi-Fowlers Blood Pressure Location Left Arm History Since Last Visit- (Skip if this is Patient's initial visit) Have you changed medications since your No last visit? Any new allergies or adverse reactions No Had a fall/change in ADL's that may No increase risk of falls Signs or symptoms of abuse and/or No neglect since last visit Have you been in the hospital since your No last visit? Has dressing in place as prescribed Yes Has compression in place as prescribed No Has offloadiing in place as prescribed No Experienced any changes in pain level or No management Left Footwear Slipper Pain Scale: 0-10 Numeric Is Patient Pain Free? No lower extrem bilat -Description Aching -Intensity 8 -Duration (hours) Chronic -Pain Behavior Irritability -Pain Aggravating Factors ADL's -Alleviating Factors/Interventions Medication -Effectiveness of Alleviating Factor/ Minimally Intervention effective WC - Nurse 1 - General Ulcer Measurement Start: 12/22/21 09:11 Freq: Status: Active Protocol: Activity Type Activity Date Activity User E-sign Co-sign Detail Recorded Client Recorded Date Recorded By Document 12/22/21 09:11 [facility] [id number] 12/22/21 09:30 [facility] 12/22/21 09:11 Wound Center Nurse 1 22. R heel -Combined with other wound No -Current Size (cm) - Length 3.4 -Current Size (cm) - Width 4.4 -Current Size (cm) - Depth 0.1 -Total Square Cm 14.96 -Photo Taken Yes -Tunneling No -Undermining/Tunneling No -Circular Undermining No -Exudate Amt Medium -Exudate Type Serosanguineous -Wound Margin Distinct, Outline Attached -Granulation Amt Medium (34-66%) -Granulation Quality [place] -Slough/Fibrin Yes -Necrosis Amt Medium (34-66%) -Necrotic Tissue Type Adherent Slough -Texture (Анна-wound Skin Appearance) Assessed -Moisture (Анна-wound Skin Appearance) Assessed,Dry/ Scaly -Color (Анна-wound Skin Appearance) Assessed -Temperature (Анна-wound Skin No Abnormality Appearance) (Pt Warm) -Tenderness on Palpation (Анна-wound No Skin Appearance) -Ulcer Cleansing Wound Cleanser -Foul Odor after Cleansing No -Anesthetic Used 4% Lidocaine Solution 21-right lateral ankle -Combined with other wound No -Current Size (cm) - Length 0.9 -Current Size (cm) - Width 1 -Current Size (cm) - Depth 0.3 -Total Square Cm 0.9 -Photo Taken Yes -Tunneling No -Undermining/Tunneling Yes -Undermining/Tunneling Starts (O'clock 6 ) -Undermining/Tunneling Ends (O'clock) 12 -Maximum Distance (cm) 0.2 -Circular Undermining No -Exudate Amt Medium -Exudate Type Serosanguineous -Wound Margin Distinct, Outline Attached -Granulation Amt Medium (34-66%) -Granulation Quality [place] -Slough/Fibrin Yes -Necrotic Tissue Type Adherent Slough -Ulcer Cleansing Wound Cleanser -Foul Odor after Cleansing No -Anesthetic Used 4% Lidocaine Solution 20. LLE lateral below knee -Combined with other wound No -Current Size (cm) - Length 0.1 -Current Size (cm) - Width 0.1 -Current Size (cm) - Depth 0.1 -Total Square Cm 0.01 -Photo Taken Yes -Epithelialization Large 67-100% #19 R LE CLUSTER -Combined with other wound No -Current Size (cm) - Length 0.5 -Current Size (cm) - Width 0 -Current Size (cm) - Depth 0.3 -Total Square Cm 0 -Photo Taken Yes -Epithelialization Medium 34-66% -Tunneling No -Undermining/Tunneling No -Circular Undermining No -Exudate Amt Medium -Exudate Type Serosanguineous -Granulation Amt Medium (34-66%) -Granulation Quality [place] -Slough/Fibrin Yes -Necrosis Amt Medium (34-66%) -Necrotic Tissue Type Adherent Slough -Structure Exposed N/A -Texture (Анна-wound Skin Appearance) Assessed -Moisture (Анна-wound Skin Appearance) Assessed,Dry/ Scaly -Color (Анна-wound Skin Appearance) Assessed -Tenderness on Palpation (Анна-wound No Skin Appearance) -Ulcer Cleansing Wound Cleanser -Foul Odor after Cleansing No -Anesthetic Used 4% Lidocaine Solution #17 LL FOOT 5TH MET -Combined with other wound No -Current Size (cm) - Length 1.8 -Current Size (cm) - Width 2.2 -Current Size (cm) - Depth 0.2 -Total Square Cm 3.96 -Photo Taken Yes -Tunneling No -Undermining/Tunneling No -Circular Undermining No -Exudate Amt Medium -Exudate Type Serosanguineous -Wound Margin Distinct, Outline Attached -Granulation Amt Medium (34-66%) -Granulation Quality [place] -Slough/Fibrin Yes -Necrosis Amt Small (1-33%) -Necrotic Tissue Type Adherent Slough -Structure Exposed Bone -Texture (Анна-wound Skin Appearance) Assessed -Moisture (Анна-wound Skin Appearance) Assessed,Dry/ Scaly -Color (Анна-wound Skin Appearance) Assessed, Hemosiderin Staining -Temperature (Анна-wound Skin No Abnormality Appearance) (Pt Warm) -Tenderness on Palpation (Анна-wound No Skin Appearance) -Ulcer Cleansing Wound Cleanser -Foul Odor after Cleansing No -Anesthetic Used 4% Lidocaine Solution #16 L MEDIAL FOOT -Combined with other wound No -Current Size (cm) - Length 0.6 -Current Size (cm) - Width 1 -Current Size (cm) - Depth 0.2 -Total Square Cm 0.6 -Photo Taken Yes -Tunneling No -Circular Undermining No -Exudate Amt Medium -Exudate Type Serosanguineous -Wound Margin Distinct, Outline Attached -Granulation Amt Small (1-33%) -Granulation Quality [place] -Slough/Fibrin Yes -Necrosis Amt Medium (34-66%) -Necrotic Tissue Type Adherent Slough -Structure Exposed Bone -Texture (Анна-wound Skin Appearance) Assessed -Moisture (Анна-wound Skin Appearance) Assessed -Color (Анна-wound Skin Appearance) Hemosiderin Staining -Temperature (Анна-wound Skin No Abnormality Appearance) (Pt Warm) -Tenderness on Palpation (Анна-wound No Skin Appearance) -Ulcer Cleansing Wound Cleanser -Foul Odor after Cleansing No Assessment/Plan Assessment/Plan (1) Chronic ulcer of left foot with necrosis of bone: CODE(S): L97.524 - Non-pressure chronic ulcer of other part of left foot with necrosis of bone (2) Chronic ulcer of right lower extremity with fat layer exposed: CODE(S): L97.912 - Non-pressure chronic ulcer of unspecified part of right lower leg with fat layer exposed (3) Rheumatoid arthritis: CODE(S): M06.9 - Rheumatoid arthritis, unspecified QUALIFIERS: Rheumatoid arthritis location: foot Rheumatoid factor presence: unspecified presence Laterality: bilateral Qualified Code(s): M06.9 - Rheumatoid arthritis, unspecified (4) Fat pad atrophy of foot: CODE(S): L90.9 - Atrophic disorder of skin, unspecified (5) Osteomyelitis, chronic, ankle or foot: CODE(S): M86.679 - Other chronic osteomyelitis, unspecified ankle and foot (6) Delayed wound healing: CODE(S): T14.8XXD - Other injury of unspecified body region, subsequent encounter (7) Steroid long-term use: (8) PAD (peripheral artery disease): CODE(S): I73.9 - Peripheral vascular disease, unspecified (9) Difficulty in walking, not elsewhere classified: CODE(S): R26.2 - Difficulty in walking, not elsewhere classified (10) Chronic ulcer of right foot with fat layer exposed: CODE(S): L97.512 - Non-pressure chronic ulcer of other part of right foot with fat layer exposed PLAN: Plan Patient seen and examined. Debridement was performed to the left foot as noted in the clinical nursing panel. Debridement was also performed to the right lower extremity ulcers as noted in the clinical nursing panel. Verbal consent was obtained and she tolerated this well. She continues to use the offloading inserts with significant improvement noted since beginning use however recently removed the left insole. Compliance was discussed and it is noted she wears cloth slippers today. We discussed at length previously. the other more successful ways to offload wounds were not tolerated. she is not able to safely perform these due to her walking difficulty, balance, fall risk status. We discussed the benefits and risks of each opportunity. To continue wearing sneaker with offloading modification made recently. she recently completed a [facility]. She is noted to use tubigrip; to continue bilateral. Discussed previously that the swelling may be cardiac in origin. She continues to follow-up with toe former as recommended previously. She had prior infections and was treated with infectious disease. There are no signs infection noted today. Patient was previously treated with culture guided antibiotic therapy per Dr. Clements. There are no local signs of infection no chaitanya today. She was treated at the custodial facility for osteomyelitis and bacteremia, and has returned home now that this treatment has been completed. Discussed with patient going a more palliative wound care route with her chronic nonhealing ulcerations especially given significant comorbidities and treatment of healing with medications especially if she will not proceed with vascular i ntervention because treatment success is guarded. She elects to return biweekly. LEAS 06/30/20 showed moderate distal small vessel disease bilaterally at the digits. The left foot was noted to have biphasic pulses with CRUZ of 1.27 and TBI of 0.37. The left PT was noncompressible. The right foot PT and DP were noncompressible and TBI of 0.4 with triphasic and biphasic pulses. Patient had procedure with Dr Oseguera 07/21/20. Patient reports that the procedure went well. Dr. Oseguera is considering additional angiogram with intervention at this time. We discussed this at length today as she has put this process on hold to seek intervention for her back pain. I advised the patient to call and schedule and proceed forward with recommendations issue will likely not heal the ulcers with limited lower extremity blood flow and ongoing delays in treatment. She is very overwhelmed with all of her medical management and has placed a vascular plan on hold but will consider referral update. This was reinitiated on 12-22-21. Discussed importance of non-smoking, blood sugar control, weight management, offloading, proper nutrition, and hygiene to optimize healing potential. She denies home health and physical therapy in her home on a routine basis and encouraged continued participation. Discussed that her chronic steroid use for her RA can impact wound healing as well as impact her body's ability to mount an immune response. We discussed the option of transitioning her back to her medications under the management of her cap and hat production supervisor. I do not think this would benefit her wound healing progression however she understands if she is having flareups and needs to return to the medication that is okay to proceed forward with more of a palliative type wound care plan. She sees Dr. Tovar. She has resumed. Discussed the importance of proper nutrition including getting enough protein in her diet to help with healing. Patient previously saw Dr. Steinberg for HBO evaluation. This was given prior to patient's recent heart attack and hospital admission. Patient will need to get cardiac clearance prior to being approved for HBO. This was not given at this time. We will potentially reconsider HBO therapy in the future if ever given cardiac clearance. We will hold off on this due to her recent fatigue symptoms. Encouraged protein rich diet and protein supplements. Discussed Vick supplementation. Patient is overall frail appearance with muscle atrophy noted. All questions answered. She is stable and will follow up in 3 weeks. She is on a palliative plan and feels very overwhelmed with coming to clinic on a routine basis. Dressings: Continue wound care to foot ulcerations daily. To use Aquacel silver to subfirst metatarsal head ulcer site and hydrogel to other ulcers of bilateral lower extremities. Adaptic to right heel To moisturize the legs and feet daily. This note was generated with [employer] dictation software. It may contain incorrect words, spelling, and punctuation that were not noted in checking the note before signing. The medical decision making level is moderate. There is noted moderate risk of morbidity after considering this treatment plan and diagnostic data. Considerations were given to prescription management, decisions regarding surgical options, or social determinants of health. The problems addressed require a moderate decision making level which includes one or more chronic illnesses (w/ exacerbation, progression, or side effects), two or more stable chronic illnesses, one undiagnosed new problem w/ uncertain prognosis, one acute illness with systemic symptoms, or one acute complicated injury.
--- NOTE | 2022-01-05 13:13 | WC ---
Received a call from Rachel from [facility] concerned about patient's left 5th methead ulcer worsening. States she has increase pain and overall wound looks worse since last week's home visit. ulcer now appears blackened and feels she needs to be seen sooner. Patient notified to come in 01/06/22 at 9am and if her symptoms worsen to report to the ER with increase pain, redness, warmth, increase foul odor. Patient verbalized understanding.
== END 2022-01-05 23:59 | disposition home or self-care (01) ==
LOC: WC 08:59
PROVIDERS: PCP Physician Assistant; Visit Provider Podiatrist
DX: L97.524 Non-pressure chronic ulcer of other part of left foot with necrosis of bone (principal); L97.912 Non-pressure chronic ulcer of unspecified part of right lower leg with fat layer exposed; L97.512 Non-pressure chronic ulcer of other part of right foot with fat layer exposed; M06.9 Rheumatoid arthritis, unspecified; M86.679 Other chronic osteomyelitis, unspecified ankle and foot; I73.9 Peripheral vascular disease, unspecified; R26.2 Difficulty in walking, not elsewhere classified; L90.9 Atrophic disorder of skin, unspecified
CPT/HCPCS: 11042

== ENCOUNTER 2022-01-20 10:00 | Outpatient (RCR) | payer MEDICARE, SELFPAY ==
[2022-01-06 00:26] VITALS: BP 160/90; PULSE 99; RESP 18; TEMP 36.1; BMI 18.6
[2022-01-06 08:51] VITALS: BP 145/49; PULSE 90; RESP 18; TEMP 36.5; BMI 18.6
--- NOTE | 2022-01-06 10:17 | PN.PCM_ITS ---
History of Present Illness Date of Service: 01/06/22 Chief Complaint: Left 1st metatarsal ulceration with chronic refractory os teomyelitis of the left first metatarsal left foot ulcer right ankle and leg ulcers (heel wound has clarified itself) right foot ulcer sub 1st metatarsal head right lateral ankle ulcer History of Wound: Kylah is a 76-year-old female who was referred here for treatment bilateral lower extremity ulcerations. Patient is noted to have significant fat pad atrophy likely secondary to her rheumatoid arthritis. Patient is on multiple medications for her rheumatoid arthritis which are impeding her wound healing. Patient is also prone to breakdown given lack of fat pad. Patient noted to have had MRIs which showed osteomyelitis and has been treated by Dr. Clements with antibiotic treatments. Patient is a poor surgical candidate given her poor healing status and multiple comorbidities. She has recently returned home from care home care including physical therapy, wound care, and IV antibiotics for refractory foot osteomyelitis and bacteremia. The patient has had vascular studies on 06/30/20 showed moderate distal small vessel disease bilaterally at the digits with some non compressible vessels. Patient saw her vascular surgeon, Dr. Oseguera, who did intervention on the patient on 07/21/20. Dr. Oseguera is considering additional angiogram with intervention. This exact plan is pending and actually put on hold at this time per the patient to focus on her other medical conditions at this time. She has now returned home and will consider this follow up due to recent worsening deterioration of both feet. The patient is noted to be a prior intermediate user of prednisone and methotrexate for her rheumatoid arthritis. These are acknowledged to be possible inhibitors to wound healing. Patient noted to have painful feet due to her rheumatoid arthritis. Patient is also noted to have had recent heart attack and has been started on blood thinners for this. She offloads with Plastizote accommodative inserts in her shoes and slippers at home. She is a fall risk and was previously unable to wear surgical offloading shoes or boots. This was at modified by cutting a hole in the shoe to offload the entire side of the foot. She wears these only sometimes and present with slippers today (not recommended). She denies fever, chills, nausea, vomiting. Subjective Subjective This is a 76-year-old female with history of rheumatoid arthritis on immunosuppressant drugs, and history of peripheral vascular disease and fat pad atrophy to both forefoot. She presents today to the wound care center for follow-up of multiple chronic ulcerations of her right foot and left foot. She states she has an appointment coming with Dr. Oseguera for vascular intervention. She denies any constitutional symptoms. She has no further complaints today. Objective Data Objective Data Vital Signs: Vital Signs Temp Pulse Resp BP O2 Del Method 97.7 F L 90 18 145/49 H Room Air 01/06/22 08:51 01/06/22 08:51 01/06/22 08:51 01/06/22 08:51 01/06/22 08:51 Oxygen Delivery Method Room Air Weight: 46.266 kg Body Mass Index (BMI) 18.6 Physical Exam Const alert, oriented x3 and no apparent distress General Appearance: cooperative and comfortable HEENT normocephalic Eyes General Eye: normal appearance of both eyes Neck General: normal visual inspection Lymph Lymphatic: no lymphadenopathy noted and no lymphedema noted Resp normal respiratory effort Cardio regular rate and regular rhythm Extremity no calf tenderness Extremity Narrative: No calf tenderness Diminished pulses bilaterally. CFT more delayed on left toes 2,3,4,5. Purpleish discoloration to the distal melvina of digits 2, 3, and 4 of the left foot. Nonpitting pedal edema noted to the forefoot bilaterally Muscle wasting noted bilaterally reduced right leg ulcer and healed proximal leg ulcer unchanged lateral right ankle ulcer - granular and fibrous base right sub 1st metatarsal head ulcer with fibrous base heel now with adhered eschar upon. left foot sub 1st metatarsal head ulcer, subfourth metatarsal and lateral forefoot/fifth metatarsal ulcer with continued exposed bone and now eschar progression Skin no rashes or lesions noted and no jaundice General Skin Exam: venous stasis and dermatitis Neuro oriented x3 and moves all extremities Debridement Note Debridement Note Wound debrided: Left lateral fifth met; left subfirst metatarsal; left subfourth metatarsal Laterality: Left Wound Grade/Stage: Mcdonough stage III Type of Debridement: Excisional debridement Anesthesia Used: 5% Lidocaine Gel Depth: Down to and including healthy tissue and in the subcutaneous layer Percentage of wound debrided: 100 Instrument Used: 3mm curette Tissue Removed: Fibrous, devitalized subcutaneous, biofilm, slough Severity: Necrosis of Bone Amount of bleeding with debridement: Mild Bleeding Controlled with: Compression and gauze Patient tolerated procedure: Patient tolerated procedure well Post-Debridement Measurements and Additional Note: Post-Debridement Measurements/Treatment SHAHANA - Nurse 1 - General Ulcer Assessment Start: 01/06/22 08:51 Freq: Status: Active Protocol: GEORGE Activity Type Activity Date Activity User E-sign Co-sign Detail Recorded Client Recorded Date Recorded By Document 01/06/22 08:51 [facility] [id number] 01/06/22 09:23 [facility] 01/06/22 08:51 WC - Today's Visit Information Type of service Follow-up Visit (Physician/PHYSICIAN CREDENTIALING SPECIALIST ) Arrival Mode Wheelchair Transfer Assistance Other Transfer Assist (Other) 1 Patient Identification Verified (Name & Yes ) Patient Requires Transmission-Based No Precautions Height and Weight Body Mass Index (BMI) 18.6 BMI Classification Normal Vital Signs Temperature (97.8 F-99.1 F) 97.7 F L Temperature Source Temporal Pulse Rate (60-100) 90 Pulse Location Monitor Respiratory Rate (12-18) 18 Respiratory rate source Observation Oxygen Delivery Method Room Air Blood Pressure (90/60-120/80) 145/49 H Blood Pressure Mean (mm Hg) 81 Source Monitor Position Sitting Blood Pressure Location Right Arm History Since Last Visit- (Skip if this is Patient's initial visit) Have you changed medications since your No last visit? Any new allergies or adverse reactions No Had a fall/change in ADL's that may No increase risk of falls Have you been in the hospital since your No last visit? Has dressing in place as prescribed Yes Has compression in place as prescribed No Has offloadiing in place as prescribed N/A Experienced any changes in pain level or No management Left Footwear Slipper Right Footwear Slipper Pain Scale: 0-10 Numeric Is Patient Pain Free? Yes - Nurse 1 - General Ulcer Measurement Start: 01/06/22 08:51 Freq: Status: Active Protocol: Activity Type Activity Date Activity User E-sign Co-sign Detail Recorded Client Recorded Date Recorded By Document 01/06/22 08:51 [facility] [id number] 01/06/22 09:23 [facility] 01/06/22 08:51 Wound Center Nurse 1 20. LLE lateral below knee -Combined with other wound No -Current Size (cm) - Length 0 -Current Size (cm) - Width 0 -Current Size (cm) - Depth 0 -Total Square Cm 0 -Date of Last Picture (Recall this 01/06/22 field) -Photo Taken Yes -Epithelialization Large 67-100% #19 R LE CLUSTER -Combined with other wound No -Current Size (cm) - Length 0 -Current Size (cm) - Width 0 -Current Size (cm) - Depth 0 -Total Square Cm 0 -Date of Last Picture (Recall this 01/06/22 field) -Photo Taken Yes -Epithelialization Large 67-100% #24- L LAT PLANTAR FOOT -Combined with other wound No -Current Size (cm) - Length 0.6 -Current Size (cm) - Width 0.4 -Current Size (cm) - Depth 0.3 -Total Square Cm 0.24 -Date of Last Picture (Recall this 01/06/22 field) -Photo Taken Yes -Epithelialization None Present -Tunneling No -Undermining/Tunneling No -Circular Undermining No -Exudate Amt Medium -Exudate Type Serous -Wound Margin Distinct, Outline Attached -Granulation Amt None Present (0 %) -Slough/Fibrin Yes -Necrosis Amt Large (67-100%) -Necrotic Tissue Type Adherent Slough -Texture (Анна-wound Skin Appearance) Assessed, Localized Edema -Moisture (Анна-wound Skin Appearance) Assessed -Color (Анна-wound Skin Appearance) Erythema -Temperature (Анна-wound Skin No Abnormality Appearance) (Pt Warm) -Tenderness on Palpation (Анна-wound Yes Skin Appearance) -Ulcer Cleansing Soap and Water -Foul Odor after Cleansing No -Anesthetic Used 5% Lidocaine Gel 23-right 1st methead -Combined with other wound No -Current Size (cm) - Length 0.1 -Current Size (cm) - Width 0.1 -Current Size (cm) - Depth 0.1 -Total Square Cm 0.01 -Date of Last Picture (Recall this 01/06/22 field) -Photo Taken Yes -Epithelialization Large 67-100% -Tunneling No -Undermining/Tunneling No -Circular Undermining No -Exudate Amt None Present -Texture (Анна-wound Skin Appearance) Assessed, Scarring -Moisture (Анна-wound Skin Appearance) Assessed,Dry/ Scaly -Color (Анна-wound Skin Appearance) Assessed -Temperature (Анна-wound Skin No Abnormality Appearance) (Pt Warm) -Tenderness on Palpation (Анна-wound No Skin Appearance) -Ulcer Cleansing Soap and Water -Foul Odor after Cleansing No -Anesthetic Used 5% Lidocaine Gel 22. R heel -Combined with other wound No -Current Size (cm) - Length 3.9 -Current Size (cm) - Width 3.7 -Current Size (cm) - Depth 0.2 -Total Square Cm 14.43 -Date of Last Picture (Recall this 01/06/22 field) -Photo Taken Yes -Epithelialization None Present -Tunneling No -Undermining/Tunneling No -Circular Undermining No -Exudate Amt Small -Exudate Type Serous -Wound Margin Distinct, Outline Attached -Granulation Amt None Present (0 %) -Slough/Fibrin Yes -Necrosis Amt Large (67-100%) -Necrotic Tissue Type Eschar -Texture (Анна-wound Skin Appearance) Assessed -Moisture (Анна-wound Skin Appearance) Assessed -Color (Анна-wound Skin Appearance) Assessed -Temperature (Анна-wound Skin No Abnormality Appearance) (Pt Warm) -Tenderness on Palpation (Анна-wound Yes Skin Appearance) -Ulcer Cleansing Soap and Water -Foul Odor after Cleansing No -Anesthetic Used 5% Lidocaine Gel 21-right lateral ankle -Combined with other wound No -Current Size (cm) - Length 0.9 -Current Size (cm) - Width 0.8 -Current Size (cm) - Depth 0.3 -Total Square Cm 0.72 -Date of Last Picture (Recall this 01/06/22 field) -Photo Taken Yes -Epithelialization None Present -Tunneling No -Undermining/Tunneling No -Circular Undermining No -Exudate Amt Medium -Exudate Type Serous -Wound Margin Distinct, Outline Attached -Granulation Amt None Present (0 %) -Slough/Fibrin Yes -Necrosis Amt Large (67-100%) -Necrotic Tissue Type Adherent Slough -Texture (Анна-wound Skin Appearance) Assessed, Scarring -Moisture (Анна-wound Skin Appearance) Assessed -Color (Анна-wound Skin Appearance) Assessed, Erythema -Temperature (Анна-wound Skin No Abnormality Appearance) (Pt Warm) -Tenderness on Palpation (Анна-wound Yes Skin Appearance) -Ulcer Cleansing Soap and Water -Foul Odor after Cleansing No -Anesthetic Used 5% Lidocaine Gel #17 LL FOOT 5TH MET -Combined with other wound No -Current Size (cm) - Length 2.8 -Current Size (cm) - Width 2.4 -Current Size (cm) - Depth 0.2 -Total Square Cm 6.72 -Date of Last Picture (Recall this 01/06/22 field) -Photo Taken Yes -Epithelialization None Present -Tunneling No -Undermining/Tunneling No -Circular Undermining No -Exudate Amt Medium -Exudate Type Serous -Wound Margin Distinct, Outline Attached -Granulation Amt Small (1-33%) -Granulation Quality Pale -Slough/Fibrin Yes -Necrosis Amt Large (67-100%) -Necrotic Tissue Type Eschar -Texture (Анна-wound Skin Appearance) Assessed, Localized Edema -Moisture (Анна-wound Skin Appearance) Assessed -Color (Анна-wound Skin Appearance) Assessed, Erythema -Temperature (Анна-wound Skin No Abnormality Appearance) (Pt Warm) -Tenderness on Palpation (Анна-wound Yes Skin Appearance) -Ulcer Cleansing Soap and Water -Foul Odor after Cleansing No -Anesthetic Used 5% Lidocaine Gel #16 L MEDIAL FOOT -Combined with other wound No -Current Size (cm) - Length 10.8 -Current Size (cm) - Width 1.4 -Current Size (cm) - Depth 0.4 -Total Square Cm 15.12 -Date of Last Picture (Recall this 01/06/22 field) -Photo Taken Yes -Epithelialization None Present -Tunneling No -Undermining/Tunneling No -Circular Undermining No -Exudate Amt Medium -Exudate Type Serous -Wound Margin Distinct, Outline Attached -Granulation Amt None Present (0 %) -Slough/Fibrin Yes -Necrosis Amt Large (67-100%) -Necrotic Tissue Type Adherent Slough -Structure Exposed Bone -Texture (Анна-wound Skin Appearance) Assessed, Localized Edema ,Scarring -Moisture (Анна-wound Skin Appearance) Assessed -Color (Анна-wound Skin Appearance) Assessed, Erythema -Temperature (Анна-wound Skin No Abnormality Appearance) (Pt Warm) -Tenderness on Palpation (Анна-wound Yes Skin Appearance) -Ulcer Cleansing Soap and Water -Foul Odor after Cleansing No -Anesthetic Used 5% Lidocaine Gel Lower Limb Edema Present Yes Right Calf (cm) 27.8 Right Ankle (cm) 16.6 Left Calf (cm) 29.9 Left Ankle (cm) 17.5 WC - Nurse 3 - General Ulcer D/C NN Start: 01/06/22 08:51 Freq: Status: Active Protocol: Activity Type Activity Date Activity User E-sign Co-sign Detail Recorded Client Recorded Date Recorded By Document 01/06/22 09:59 ID [id number] 01/06/22 10:02 ID 01/06/22 09:59 Wound Care Nurse 3 #24- L LAT PLANTAR FOOT -Ulcer Cleansing Rinsed/ Irrigated with Saline -Foul Odor after Cleansing No -Primary Dressing Applied Aquacel AG 4x4 -Primary Dressing Covered/Secured with Dry Gauze & Roll Gauze, Secured with Tape -Aquacel AG 4x4 2 23-right 1st methead -Ulcer Cleansing Rinsed/ Irrigated with Saline -Foul Odor after Cleansing No -Primary Dressing Applied Aquacel AG 4x4 -Primary Dressing Covered/Secured with Dry Gauze & Roll Gauze, Secured with Tape -Aquacel AG 4x4 0 22. R heel -Ulcer Cleansing Rinsed/ Irrigated with Saline -Foul Odor after Cleansing No -Primary Dressing Applied Aquacel AG 4x4 -Other Dressing heel hat -Primary Dressing Covered/Secured with Dry Gauze & Roll Gauze, Secured with Tape -Aquacel AG 4x4 0 21-right lateral ankle -Ulcer Cleansing Rinsed/ Irrigated with Saline -Foul Odor after Cleansing No -Primary Dressing Applied Aquacel AG 4x4 -Primary Dressing Covered/Secured with Dry Gauze & Roll Gauze, Secured with Tape -Aquacel AG 4x4 0 #17 LL FOOT 5TH MET -Ulcer Cleansing Rinsed/ Irrigated with Saline -Foul Odor after Cleansing No -Primary Dressing Applied Aquacel AG 4x4 -Primary Dressing Covered/Secured with Dry Gauze & Roll Gauze, Secured with Tape -Aquacel AG 4x4 0 #16 L MEDIAL FOOT -Ulcer Cleansing Rinsed/ Irrigated with Saline -Foul Odor after Cleansing No -Primary Dressing Applied Aquacel AG 4x4 -Primary Dressing Covered/Secured with Dry Gauze & Roll Gauze, Secured with Tape -Aquacel AG 4x4 0 BLE -Tubular Bandage Single Layer -Size of Tubigrip Used Size E -Size E ($) 2 Treatment Response Procedure Tolerated Well Pain Scale: 0-10 Numeric Is Patient Pain Free? Yes WC - Visit Discharge Discharge Condition Stable Ambulatory Status Wheelchair Transportation Private Auto Accompanied by Facility Type Home Health Additional Wound Wound debrided: Right lateral ankle Laterality: Right Wound Grade/Stage: Mcdonough stage I Type of Debridement: Excisional debridement Anesthesia Used: 5% Lidocaine Gel Depth: Down to and including healthy tissue and in the subcutaneous layer Percentage of wound debrided: 100 Instrument Used: 3mm curette Tissue Removed: Fibrous, devitalized subcutaneous, biofilm, slough Severity: Fat Layer Exposed Amount of bleeding with debridement: Mild Bleeding Controlled with: Compression and gauze Patient tolerated procedure: Patient tolerated procedure well Assessment/Plan Assessment/Plan (1) Rheumatoid arthritis: CODE(S): M06.9 - Rheumatoid arthritis, unspecified QUALIFIERS: Laterality: bilateral Rheumatoid arthritis location: foot Rheumatoid factor presence: unspecified presence Qualified Code(s): M06.9 - Rheumatoid arthritis, unspecified (2) Osteoarthritis: CODE(S): M19.90 - Unspecified osteoarthritis, unspecified site QUALIFIERS: Osteoarthritis location: multiple joints Osteoarthritis type: unspecified Qualified Code(s): M15.9 - Polyosteoarthritis, unspecified (3) Osteoporosis: CODE(S): M81.0 - Age-related osteoporosis without current pathological fracture QUALIFIERS: Osteoporosis type: unspecified Presence of current pathological fracture: without current pathological fracture Qualified Code(s): M81.0 - Age-related osteoporosis without current pathological fracture (4) Pressure ulcer of left foot, stage 3: CODE(S): L89.893 - Pressure ulcer of other site, stage 3 (5) Chronic ulcer of right leg with fat layer exposed: CODE(S): L97.912 - Non-pressure chronic ulcer of unspecified part of right lower leg with fat layer exposed (6) Chronic ulcer of right foot with fat layer exposed: CODE(S): L97.512 - Non-pressure chronic ulcer of other part of right foot with fat layer exposed (7) Chronic ulcer of right lower extremity with fat layer exposed: CODE(S): L97.912 - Non-pressure chronic ulcer of unspecified part of right lower leg with fat layer exposed (8) Difficulty in walking, not elsewhere classified: CODE(S): R26.2 - Difficulty in walking, not elsewhere classified (9) Chronic ulcer of left foot with necrosis of bone: CODE(S): L97.524 - Non-pressure chronic ulcer of other part of left foot with necrosis of bone (10) Non-pressure chronic ulcer of other part of left foot with fat layer exposed: CODE(S): L97.522 - Non-pressure chronic ulcer of other part of left foot with fat layer exposed (11) Osteomyelitis, chronic, ankle or foot: CODE(S): M86.679 - Other chronic osteomyelitis, unspecified ankle and foot (12) PAD (peripheral artery disease): CODE(S): I73.9 - Peripheral vascular disease, unspecified (13) Steroid long-term use: (14) Delayed wound healing: CODE(S): T14.8XXD - Other injury of unspecified body region, subsequent encounter (15) Fat pad atrophy of foot: CODE(S): L90.9 - Atrophic disorder of skin, unspecified PLAN: Plan Patient seen and examined.? Debridement was performed to the left foot as noted in the clinical nursing panel.? Debridement was also performed to the right lower extremity ulcers as noted in the clinical panel. Verbal consent was obtained and procedure tolerated well. Patient demonstrates chronic ulceration of bilateral foot with exposed bone of the subfirst metatarsal head, subfourth metatarsal head, and lateral 5th metatarsal head. She has history of chronic OM at these sights and had completed IV Abx course. She was using the offloading inserts with significant improvement, however recently removed the left insole.? Compliance was discussed and it is noted she continues wearing cloth slippers today.? I discussed at length again today.? I discussed the other more successful ways to offload wounds, but these were not tolerated. She is not able to safely perform these due to her walking difficulty, balance, and fall risk status.?Benefits and risks of each opportunity were again discussed today. She was instructed to return to wearing sneaker with offloading modification made at her last wound care appointment by Dr. Warner. She is noted to use tubigrip; she is to continue bilateral.? However states she removed the Tubigrip due to pain secondary to the compression. We discussed continuing use of the Tubigrip but a more milder form. It is noted a previous discussion was had that the swelling may be cardiac in origin.? She continues to follow-up with arson and bomb investigator as recommended previously. ? She had prior infections and was treated by infectious disease, Dr. Clements.? This consisted of a culture guided antibiotic therapy. There are no signs infection noted today. She was previously treated at the alf facility for osteomyelitis and bacteremia, and has returned home now that this treatment has been completed. It is noted that Dr. Warner had discussed with patient going a more palliative wound care route with her chronic nonhealing ulcerations especially given significant comorbidities and treatment of healing with medications especially if she will not proceed with vascular intervention because treatment success is guarded.? She continues to elect to return biweekly. Currently patient is a poor surgical candidate from podiatry standpoint given her current vascular status and multiple comorbidities. LEAS 06/30/20 showed moderate distal small vessel disease bilaterally at the digits.? The left foot was noted to have biphasic pulses with CRUZ of 1.27 and TBI of 0.37.? The left PT was noncompressible.? The right foot PT and DP were noncompressible and TBI of 0.4 with triphasic and biphasic pulses.? Patient had procedure with Dr Oseguera 07/21/20.? Patient reports that the procedure went well.? Dr. Oseguera is considering additional angiogram with intervention at this time. ?I discussed returning for another vascular procedure. She has put this process on hold to seek intervention for her back pain but states she may consider returning.? Patient was again advised to call and schedule and proceed forward with recommendations as her issue will likely not heal the ulcers with limited lower extremity blood flow and ongoing delays in treatment.? She is very overwhelmed with all of her medical management and has placed a vascular plan on hold but will consider referral update. This was reinitiated by Dr. Warner on 12-22-21. I will continue to check in to ensure she follows up with vascular. I have again discussed importance of non-smoking, blood sugar control, weight management, offloading, proper nutrition/protein in her diet, and hygiene to optimize healing potential.? She denies home health and physical therapy in her home on a routine basis. She was encouraged continued participation. Discussed that her chronic steroid use for her RA can impact wound healing as well as impact her body's ability to mount an immune response.? Dr. Warner has discussed the option of transitioning her back to her medications under the management of her writing manager.?I agree that she needs to continue to follow Rheumatology for RA management. I also do not think this would benefit her wound healing progression, however she understands if she is having flareups and needs to return to the medication that is okay to proceed forward with more of a palliative type wound care plan. She sees Dr. Tovar. She has resumed.? Patient previously saw Dr. Steinberg for HBO evaluation. This was given prior to patient's recent heart attack and hospital admission. Patient will need to obtain cardiac clearance prior to being approved for HBO.? This was not given at this time.? We will potentially reconsider HBO therapy in the future if ever given cardiac clearance. ?We will continue to hold off on this due to her recent fatigue symptoms. Encouraged protein rich diet and protein supplements.? Discussed Vick supplementation.? Patient is overall frail appearance with muscle atrophy noted. All questions answered. She is stable and will follow up in 2 weeks.? She is on a palliative plan and feels very overwhelmed with coming to clinic on a routine basis. Dressings: Continue wound care to foot ulcerations daily.? To use Aquacel silver to subfirst metatarsal head, sub 4th metatarsal head ulcer sites and hydrogel to other ulcers of bilateral lower extremities. Adaptic to right heel? To moisturize the legs and feet daily.? This note was generated with [employer] dictation software. It may contain incorrect words, spelling, and punctuation that were not noted in checking the note before signing. The medical decision making level is moderate.? There is noted moderate risk of morbidity after considering this treatment plan and diagnostic data. Considerations were given to prescription management, decisions regarding surgical options, or social determinants of health.? The problems addressed require a moderate decision making level which? includes one or more chronic illnesses (w/ exacerbation, progression, or side effects), two or more stable chronic illnesses, one undiagnosed new problem w/ uncertain prognosis, one acute illness with systemic symptoms, or one acute complicated injury.
[2022-01-20 10:11] VITALS: BP 169/68; PULSE 99; TEMP 36.6; BMI 18.6
--- NOTE | 2022-01-20 10:58 | PN.PCM_ITS ---
History of Present Illness Date of Service: 01/20/22 Chief Complaint: Left 1st metatarsal ulceration with chronic refractory os teomyelitis of the left first metatarsal left foot ulcer right ankle and leg ulcers (heel wound has clarified itself) right foot ulcer sub 1st metatarsal head right lateral ankle ulcer History of Wound: Kylah is a 76-year-old female who was referred here for treatment bilateral lower extremity ulcerations. Patient is noted to have significant fat pad atrophy likely secondary to her rheumatoid arthritis. Patient is on multiple medications for her rheumatoid arthritis which are impeding her wound healing. Patient is also prone to breakdown given lack of fat pad. Patient noted to have had MRIs which showed osteomyelitis and has been treated by Dr. Clements with antibiotic treatments. Patient is a poor surgical candidate given her poor healing status and multiple comorbidities. She has recently returned home from residential care including physical therapy, wound care, and IV antibiotics for refractory foot osteomyelitis and bacteremia. The patient has had vascular studies on 06/30/20 showed moderate distal small vessel disease bilaterally at the digits with some non compressible vessels. Patient saw her vascular surgeon, Dr. Oseguera, who did intervention on the patient on 07/21/20. Dr. Oseguera is considering additional angiogram with intervention. This exact plan is pending and actually put on hold at this time per the patient to focus on her other medical conditions at this time. She has now returned home and will consider this follow up due to recent worsening deterioration of both feet. The patient is noted to be a prior retirement user of prednisone and methotrexate for her rheumatoid arthritis. These are acknowledged to be possible inhibitors to wound healing. Patient noted to have painful feet due to her rheumatoid arthritis. Patient is also noted to have had recent heart attack and has been started on blood thinners for this. She offloads with Plastizote accommodative inserts in her shoes and slippers at home. She is a fall risk and was previously unable to wear surgical offloading shoes or boots. This was at modified by cutting a hole in the shoe to offload the entire side of the foot. She wears these only sometimes and present with slippers today (not recommended). She denies fever, chills, nausea, vomiting. Subjective Subjective This is a 76-year-old female with history of rheumatoid arthritis on immunosuppressant drugs, and history of peripheral vascular disease and fat pad atrophy to both forefoot.? She presents today to the wound care center for follow-up of multiple chronic ulcerations of her right foot and left foot.? She states she has an appointment coming with Dr. Oseguera for vascular intervention on 01/26/2022.? She denies any constitutional symptoms.? She has no further complaints today. Objective Data Objective Data Vital Signs: Vital Signs Temp Pulse Resp BP O2 Del Method 97.9 F 99 18 169/68 H Room Air 01/20/22 10:11 01/20/22 10:11 01/06/22 08:51 01/20/22 10:11 01/06/22 08:51 Oxygen Delivery Method Room Air Weight: 46.266 kg Body Mass Index (BMI) 18.6 Physical Exam Const alert, oriented x3 and no apparent distress General Appearance: cooperative and comfortable HEENT normocephalic Eyes General Eye: normal appearance of both eyes Neck General: normal visual inspection Lymph Lymphatic: no lymphadenopathy noted and no lymphedema noted Resp normal respiratory effort Cardio regular rate and regular rhythm Extremity no calf tenderness Extremity Narrative: No calf tenderness Diminished pulses bilaterally. CFT more delayed on left toes 2,3,4,5. Purpleish discoloration to the distal melvina of digits 2, 3, and 4 of the left foot. Nonpitting pedal edema noted to the forefoot bilaterally Muscle wasting noted bilaterally reduced right leg ulcer and healed proximal leg ulcer unchanged lateral right ankle ulcer - granular and fibrous base right sub 1st metatarsal head ulcer with fibrous base heel now with adhered eschar upon. left foot sub 1st metatarsal head ulcer, subfourth metatarsal and lateral forefoot/fifth metatarsal ulcer with continued exposed bone and now eschar progression Skin no rashes or lesions noted and no jaundice General Skin Exam: venous stasis and dermatitis Neuro oriented x3 and moves all extremities Debridement Note Debridement Note Wound debrided: Sub first met head, sub 4th met head, lateral 5th met head Laterality: Left Wound Grade/Stage: Mcdonough stage III Type of Debridement: Selective debridement Anesthesia Used: 5% Lidocaine Gel Depth: Down to and including healthy tissue and in the subcutaneous layer Percentage of wound debrided: 100 Instrument Used: - (Moistened gauze and dry gauze) Tissue Removed: Fibrous, devitalized subcutaneous, biofilm, slough Severity: Necrosis of Bone Amount of bleeding with debridement: None Patient tolerated procedure: Patient tolerated procedure well Post-Debridement Measurements and Additional Note: Post-Debridement Measurements/Treatment - Nurse 1 - General Ulcer Assessment Start: 01/06/22 08:51 Freq: Status: Active Protocol: GEORGE Activity Type Activity Date Activity User E-sign Co-sign Detail Recorded Client Recorded Date Recorded By Document 01/06/22 08:51 [facility] [id number] 01/06/22 09:23 [facility] Document 01/20/22 10:11 [place] [id number] 01/20/22 10:52 [place] 01/06/22 01/20/22 08:51 10:11 - Today's Visit Information Type of service Follow-up Visit Follow-up Visit (Physician/PRISM MEASURER (Physician/PRISM MEASURER ) ) Arrival Mode Wheelchair Wheelchair Transfer Assistance Other Transfer Assist (Other) 1 Patient Identification Verified (Name & Yes Yes ) Patient Requires Transmission-Based No No Precautions Height and Weight Body Mass Index (BMI) 18.6 18.6 BMI Classification Normal Normal Vital Signs Temperature (97.8 F-99.1 F) 97.7 F L 97.9 F Temperature Source Temporal Temporal Pulse Rate (60-100) 90 99 Pulse Location Monitor Monitor Respiratory Rate (12-18) 18 Respiratory rate source Observation Oxygen Delivery Method Room Air Blood Pressure (90/60-120/80) 145/49 H 169/68 H Blood Pressure Mean (mm Hg) 81 101 Source Monitor Monitor Position Sitting Blood Pressure Location Right Arm History Since Last Visit- (Skip if this is Patient's initial visit) Have you changed medications since your No No last visit? Any new allergies or adverse reactions No No Had a fall/change in ADL's that may No No increase risk of falls Signs or symptoms of abuse and/or No neglect since last visit Have you been in the hospital since your No No last visit? Has dressing in place as prescribed Yes Yes Has compression in place as prescribed No Yes Has offloadiing in place as prescribed N/A N/A Experienced any changes in pain level or No No management Left Footwear Slipper Regular Shoe Right Footwear Slipper Regular Shoe Pain Scale: 0-10 Numeric Is Patient Pain Free? Yes No bilateral feet -Description Throbbing -Intensity 5 -Duration (hours) Chronic -Pain Behavior Withdrawal from Touch,Facial Grimacing -Pain Aggravating Factors Changing Position -Alleviating Factors/Interventions Medication - Nurse 1 - General Ulcer Measurement Start: 01/06/22 08:51 Freq: Status: Active Protocol: Activity Type Activity Date Activity User E-sign Co-sign Detail Recorded Client Recorded Date Recorded By Document 01/06/22 08:51 [facility] [id number] 01/06/22 09:23 [facility] Document 01/20/22 10:11 [place] [id number] 01/20/22 10:52 [place] 01/06/22 01/20/22 08:51 10:11 Wound Center Nurse 1 20. LLE lateral below knee -Combined with other wound No -Current Size (cm) - Length 0 -Current Size (cm) - Width 0 -Current Size (cm) - Depth 0 -Total Square Cm 0 -Date of Last Picture (Recall this 01/06/22 field) -Photo Taken Yes -Epithelialization Large 67-100% #19 R LE CLUSTER -Combined with other wound No -Current Size (cm) - Length 0 -Current Size (cm) - Width 0 -Current Size (cm) - Depth 0 -Total Square Cm 0 -Date of Last Picture (Recall this 01/06/22 field) -Photo Taken Yes -Epithelialization Large 67-100% #24- L LAT PLANTAR FOOT -Combined with other wound No No -Current Size (cm) - Length 0.6 0.6 -Current Size (cm) - Width 0.4 0.6 -Current Size (cm) - Depth 0.3 0.2 -Total Square Cm 0.24 0.36 -Date of Last Picture (Recall this 01/06/22 field) -Photo Taken Yes No -Epithelialization None Present -Tunneling No No -Undermining/Tunneling No No -Circular Undermining No No -Change in Wound Grade/Stage No -Exudate Amt Medium Large -Exudate Type Serous Yellow/Green -Wound Margin Distinct, Distinct, Outline Outline Attached Attached -Granulation Amt None Present (0 None Present (0 %) %) -Granulation Quality N/A -Slough/Fibrin Yes Yes -Necrosis Amt Large (67-100%) Medium (34-66%) -Necrotic Tissue Type Adherent Slough Adherent Slough -Structure Exposed Bone -Texture (Анна-wound Skin Appearance) Assessed, Assessed, Localized Edema Excoriation -Moisture (Анна-wound Skin Appearance) Assessed Assessed, Maceration, Weeping -Color (Анна-wound Skin Appearance) Erythema Assessed,Palor -Temperature (Анна-wound Skin No Abnormality No Abnormality Appearance) (Pt Warm) (Pt Warm) -Tenderness on Palpation (Анна-wound Yes Yes Skin Appearance) -Ulcer Cleansing Soap and Water Soap and Water -Foul Odor after Cleansing No No -Anesthetic Used 5% Lidocaine 5% Lidocaine Gel Gel 23-right 1st methead -Combined with other wound No No -Current Size (cm) - Length 0.1 0.1 -Current Size (cm) - Width 0.1 0.1 -Current Size (cm) - Depth 0.1 0.1 -Total Square Cm 0.01 0.01 -Date of Last Picture (Recall this 01/06/22 field) -Photo Taken Yes No -Epithelialization Large 67-100% None Present -Tunneling No No -Undermining/Tunneling No No -Circular Undermining No No -Change in Wound Grade/Stage No -Exudate Amt None Present None Present -Granulation Amt None Present (0 %) -Slough/Fibrin No -Structure Exposed N/A -Texture (Анна-wound Skin Appearance) Assessed, No Abnormality, Scarring Assessed -Moisture (Анна-wound Skin Appearance) Assessed,Dry/ No Abnormality, Scaly Assessed -Color (Анна-wound Skin Appearance) Assessed No Abnormality, Assessed -Temperature (Анна-wound Skin No Abnormality No Abnormality Appearance) (Pt Warm) (Pt Warm) -Tenderness on Palpation (Анна-wound No No Skin Appearance) -Ulcer Cleansing Soap and Water Soap and Water -Foul Odor after Cleansing No No -Anesthetic Used 5% Lidocaine 5% Lidocaine Gel Gel 22. R heel -Combined with other wound No No -Current Size (cm) - Length 3.9 5 -Current Size (cm) - Width 3.7 4.5 -Current Size (cm) - Depth 0.2 0.1 -Total Square Cm 14.43 22.5 -Date of Last Picture (Recall this 01/06/22 field) -Photo Taken Yes No -Epithelialization None Present -Tunneling No No -Undermining/Tunneling No No -Circular Undermining No No -Change in Wound Grade/Stage No -Exudate Amt Small None Present -Exudate Type Serous -Wound Margin Distinct, Outline Attached -Granulation Amt None Present (0 None Present (0 %) %) -Slough/Fibrin Yes No -Necrosis Amt Large (67-100%) Large (67-100%) -Necrotic Tissue Type Eschar Eschar -Structure Exposed N/A -Texture (Анна-wound Skin Appearance) Assessed No Abnormality, Assessed -Moisture (Анна-wound Skin Appearance) Assessed No Abnormality, Assessed -Color (Анна-wound Skin Appearance) Assessed No Abnormality, Assessed -Temperature (Анна-wound Skin No Abnormality No Abnormality Appearance) (Pt Warm) (Pt Warm) -Tenderness on Palpation (Анна-wound Yes No Skin Appearance) -Ulcer Cleansing Soap and Water Soap and Water -Foul Odor after Cleansing No No -Anesthetic Used 5% Lidocaine 5% Lidocaine Gel Gel 21-right lateral ankle -Combined with other wound No No -Current Size (cm) - Length 0.9 0.9 -Current Size (cm) - Width 0.8 0.5 -Current Size (cm) - Depth 0.3 0.3 -Total Square Cm 0.72 0.45 -Date of Last Picture (Recall this 01/06/22 field) -Photo Taken Yes No -Epithelialization None Present -Tunneling No No -Undermining/Tunneling No No -Circular Undermining No No -Change in Wound Grade/Stage No -Exudate Amt Medium Small -Exudate Type Serous Yellow/Green -Wound Margin Distinct, Distinct, Outline Outline Attached Attached -Granulation Amt None Present (0 None Present (0 %) %) -Granulation Quality N/A -Slough/Fibrin Yes Yes -Necrosis Amt Large (67-100%) Large (67-100%) -Necrotic Tissue Type Adherent Slough Adherent Slough -Structure Exposed N/A -Texture (Анна-wound Skin Appearance) Assessed, No Abnormality, Scarring Assessed -Moisture (Анна-wound Skin Appearance) Assessed No Abnormality, Assessed -Color (Анна-wound Skin Appearance) Assessed, No Abnormality, Erythema Assessed -Temperature (Анна-wound Skin No Abnormality No Abnormality Appearance) (Pt Warm) (Pt Warm) -Tenderness on Palpation (Анна-wound Yes No Skin Appearance) -Ulcer Cleansing Soap and Water Soap and Water -Foul Odor after Cleansing No No -Anesthetic Used 5% Lidocaine 5% Lidocaine Gel Gel #17 LL FOOT 5TH MET -Combined with other wound No No -Current Size (cm) - Length 2.8 3.5 -Current Size (cm) - Width 2.4 5.5 -Current Size (cm) - Depth 0.2 0.1 -Total Square Cm 6.72 19.25 -Date of Last Picture (Recall this 01/06/22 field) -Photo Taken Yes No -Epithelialization None Present -Tunneling No No -Undermining/Tunneling No No -Circular Undermining No No -Change in Wound Grade/Stage No -Exudate Amt Medium None Present -Exudate Type Serous -Wound Margin Distinct, Distinct, Outline Outline Attached Attached -Granulation Amt Small (1-33%) None Present (0 %) -Granulation Quality Pale N/A -Slough/Fibrin Yes No -Necrosis Amt Large (67-100%) Large (67-100%) -Necrotic Tissue Type Eschar Necrosis of Muscle -Texture (Анна-wound Skin Appearance) Assessed, No Abnormality, Localized Edema Assessed -Moisture (Анна-wound Skin Appearance) Assessed Assessed, Maceration, Weeping -Color (Анна-wound Skin Appearance) Assessed, No Abnormality, Erythema Assessed -Temperature (Анна-wound Skin No Abnormality No Abnormality Appearance) (Pt Warm) (Pt Warm) -Tenderness on Palpation (Анна-wound Yes No Skin Appearance) -Ulcer Cleansing Soap and Water Soap and Water -Foul Odor after Cleansing No No -Anesthetic Used 5% Lidocaine 5% Lidocaine Gel Gel #16 L MEDIAL FOOT -Combined with other wound No No -Current Size (cm) - Length 10.8 1 -Current Size (cm) - Width 1.4 1.5 -Current Size (cm) - Depth 0.4 0.5 -Total Square Cm 15.12 1.5 -Date of Last Picture (Recall this 01/06/22 field) -Photo Taken Yes No -Epithelialization None Present -Tunneling No No -Undermining/Tunneling No No -Circular Undermining No No -Change in Wound Grade/Stage No -Exudate Amt Medium Medium -Exudate Type Serous Serosanguineous -Wound Margin Distinct, Distinct, Outline Outline Attached Attached -Granulation Amt None Present (0 None Present (0 %) %) -Granulation Quality N/A -Slough/Fibrin Yes Yes -Necrosis Amt Large (67-100%) Small (1-33%) -Necrotic Tissue Type Adherent Slough Adherent Slough -Structure Exposed Bone Bone -Texture (Анна-wound Skin Appearance) Assessed, Assessed Localized Edema ,Scarring -Moisture (Анна-wound Skin Appearance) Assessed Assessed, Maceration, Weeping -Color (Анна-wound Skin Appearance) Assessed, No Abnormality, Erythema Assessed -Temperature (Анна-wound Skin No Abnormality No Abnormality Appearance) (Pt Warm) (Pt Warm) -Tenderness on Palpation (Анна-wound Yes No Skin Appearance) -Ulcer Cleansing Soap and Water Soap and Water -Foul Odor after Cleansing No No -Anesthetic Used 5% Lidocaine 5% Lidocaine Gel Gel Lower Limb Edema Present Yes Right Calf (cm) 27.8 Right Ankle (cm) 16.6 Left Calf (cm) 29.9 Left Ankle (cm) 17.5 WC - Nurse 2 - General Ulcer CM Notes Start: 01/06/22 08:51 Freq: Status: Active Protocol: Activity Type Activity Date Activity User E-sign Co-sign Detail Recorded Client Recorded Date Recorded By Document 01/06/22 12:19 PL [id number] 01/06/22 12:23 PL Edit Result 01/06/22 12:19 PL (1) [id number] 01/06/22 12:24 PL Edit Result 01/06/22 12:19 PL (2) [id number] 01/07/22 06:55 PL (1) #16 L MEDIAL FOOT - Debridement, SubQ, ea addt'l 20sq cm => 1 or part thereof (2) #24- L LAT PLANTAR FOOT - Clinical Debridement Subcutaneous => Muscle / Fascia - Tissue Removed Subcutaneous => Subcutaneous, => Muscle - Debridement - Subq, 1st 20sq cm No => - Debridement - Muscle / Fascia, 1st => Yes 20sq cm 01/06/22 12:19 Wound Center Nurse 2 #24- L LAT PLANTAR FOOT -Time 09:36 -Correct Patient Yes -Correct Side, Site, Position Yes -Correct Procedure Yes -Procedure Performed Yes -Type of Procedure Debridement -Clinical Debridement Muscle / Fascia -Tissue Removed Subcutaneous, Muscle -Post Debridement (cm) - Length 0.6 -Post Debridement (cm) - Width 0.4 -Post Debridement (cm) - Depth 0.3 -Total Square (Post) (cm) 0.24 -Area of Debridement (cm) - Length 0.6 -Area of Debridement (cm) - Width 0.4 -Total Square (Area) (cm) 0.24 -Tunneling No -Undermining/Tunneling No -Circular Undermining No -Wound/Ulcer Outcome Not Healed -Ulcer Cleansing Rinsed/ Irrigated with Saline -Foul Odor after Cleansing No -Bioengineered Tissue No -Bleeding Controlled with Pressure -Treatment Response Procedure Tolerated Well -Debridement - Muscle / Fascia, 1st Yes 20sq cm 22. R heel -Time 09:36 -Correct Patient Yes -Correct Side, Site, Position Yes -Correct Procedure Yes -Procedure Performed Yes -Type of Procedure Debridement -Clinical Debridement Subcutaneous -Tissue Removed Subcutaneous -Post Debridement (cm) - Length 3.9 -Post Debridement (cm) - Width 3.7 -Post Debridement (cm) - Depth 0.2 -Total Square (Post) (cm) 14.43 -Area of Debridement (cm) - Length 3.9 -Area of Debridement (cm) - Width 3.7 -Total Square (Area) (cm) 14.43 -Tunneling No -Undermining/Tunneling No -Circular Undermining No -Wound/Ulcer Outcome Not Healed -Ulcer Cleansing Rinsed/ Irrigated with Saline -Foul Odor after Cleansing No -Bioengineered Tissue No -Bleeding Controlled with Pressure -Treatment Response Procedure Tolerated Well -Debridement - Subq, 1st 20sq cm No #17 LL FOOT 5TH MET -Time 09:36 -Correct Patient Yes -Correct Side, Site, Position Yes -Correct Procedure Yes -Procedure Performed Yes -Type of Procedure Debridement -Clinical Debridement Subcutaneous -Tissue Removed Subcutaneous -Post Debridement (cm) - Length 2.8 -Post Debridement (cm) - Width 2.4 -Post Debridement (cm) - Depth 0.2 -Total Square (Post) (cm) 6.72 -Area of Debridement (cm) - Length 2.8 -Area of Debridement (cm) - Width 2.4 -Total Square (Area) (cm) 6.72 -Tunneling No -Undermining/Tunneling No -Circular Undermining No -Wound/Ulcer Outcome Not Healed -Ulcer Cleansing Rinsed/ Irrigated with Saline -Foul Odor after Cleansing No -Bioengineered Tissue No -Bleeding Controlled with Pressure -Treatment Response Procedure Tolerated Well -Debridement - Subq, 1st 20sq cm No #16 L MEDIAL FOOT -Time 09:36 -Correct Patient Yes -Correct Side, Site, Position Yes -Correct Procedure Yes -Procedure Performed Yes -Type of Procedure Debridement -Clinical Debridement Subcutaneous -Tissue Removed Subcutaneous -Post Debridement (cm) - Length 10.8 -Post Debridement (cm) - Width 1.4 -Post Debridement (cm) - Depth 0.4 -Total Square (Post) (cm) 15.12 -Area of Debridement (cm) - Length 10.8 -Area of Debridement (cm) - Width 1.4 -Total Square (Area) (cm) 15.12 -Tunneling No -Undermining/Tunneling No -Circular Undermining No -Wound/Ulcer Outcome Not Healed -Ulcer Cleansing Rinsed/ Irrigated with Saline -Foul Odor after Cleansing No -Bioengineered Tissue No -Bleeding Controlled with Pressure -Treatment Response Procedure Tolerated Well -Debridement - Subq, 1st 20sq cm Yes -Debridement, SubQ, ea addt'l 20sq cm 1 or part thereof Pain Scale: 0-10 Numeric Is Patient Pain Free? Yes WC - Nurse 3 - General Ulcer D/C NN Start: 01/06/22 08:51 Freq: Status: Active Protocol: Activity Type Activity Date Activity User E-sign Co-sign Detail Recorded Client Recorded Date Recorded By Document 01/06/22 09:59 ID [id number] 01/06/22 10:02 ID 01/06/22 09:59 Wound Care Nurse 3 #24- L LAT PLANTAR FOOT -Ulcer Cleansing Rinsed/ Irrigated with Saline -Foul Odor after Cleansing No -Primary Dressing Applied Aquacel AG 4x4 -Primary Dressing Covered/Secured with Dry Gauze & Roll Gauze, Secured with Tape -Aquacel AG 4x4 2 23-right 1st methead -Ulcer Cleansing Rinsed/ Irrigated with Saline -Foul Odor after Cleansing No -Primary Dressing Applied Aquacel AG 4x4 -Primary Dressing Covered/Secured with Dry Gauze & Roll Gauze, Secured with Tape -Aquacel AG 4x4 0 22. R heel -Ulcer Cleansing Rinsed/ Irrigated with Saline -Foul Odor after Cleansing No -Primary Dressing Applied Aquacel AG 4x4 -Other Dressing heel hat -Primary Dressing Covered/Secured with Dry Gauze & Roll Gauze, Secured with Tape -Aquacel AG 4x4 0 21-right lateral ankle -Ulcer Cleansing Rinsed/ Irrigated with Saline -Foul Odor after Cleansing No -Primary Dressing Applied Aquacel AG 4x4 -Primary Dressing Covered/Secured with Dry Gauze & Roll Gauze, Secured with Tape -Aquacel AG 4x4 0 #17 LL FOOT 5TH MET -Ulcer Cleansing Rinsed/ Irrigated with Saline -Foul Odor after Cleansing No -Primary Dressing Applied Aquacel AG 4x4 -Primary Dressing Covered/Secured with Dry Gauze & Roll Gauze, Secured with Tape -Aquacel AG 4x4 0 #16 L MEDIAL FOOT -Ulcer Cleansing Rinsed/ Irrigated with Saline -Foul Odor after Cleansing No -Primary Dressing Applied Aquacel AG 4x4 -Primary Dressing Covered/Secured with Dry Gauze & Roll Gauze, Secured with Tape -Aquacel AG 4x4 0 BLE -Tubular Bandage Single Layer -Size of Tubigrip Used Size E -Size E ($) 2 Treatment Response Procedure Tolerated Well Pain Scale: 0-10 Numeric Is Patient Pain Free? Yes WC - Visit Discharge Discharge Condition Stable Ambulatory Status Wheelchair Transportation Private Auto Accompanied by Facility Type Home Health Additional Wound Wound debrided: Lateral ankle Laterality: Right Wound Grade/Stage: Mcdonough stage I Type of Debridement: Selective debridement Anesthesia Used: 5% Lidocaine Gel Depth: Down to and including healthy tissue and in the subcutaneous layer Percentage of wound debrided: 100 Instrument Used: - (Moistened gauze and dry gauze) Tissue Removed: Fibrous, devitalized subcutaneous, biofilm, slough Severity: Fat Layer Exposed Amount of bleeding with debridement: None Bleeding Controlled with: Compression and gauze Patient tolerated procedure: Patient tolerated procedure well Assessment/Plan Assessment/Plan (1) Rheumatoid arthritis: CODE(S): M06.9 - Rheumatoid arthritis, unspecified QUALIFIERS: Laterality: bilateral Rheumatoid arthritis location: foot Rheumatoid factor presence: unspecified presence Qualified Code(s): M06.9 - Rheumatoid arthritis, unspecified (2) Osteoarthritis: CODE(S): M19.90 - Unspecified osteoarthritis, unspecified site QUALIFIERS: Osteoarthritis location: multiple joints Osteoarthritis type: unspecified Qualified Code(s): M15.9 - Polyosteoarthritis, unspecified (3) Osteoporosis: CODE(S): M81.0 - Age-related osteoporosis without current pathological fracture QUALIFIERS: Osteoporosis type: unspecified Presence of current pathological fracture: without current pathological fracture Qualified Code(s): M81.0 - Age-related osteoporosis without current pathological fracture (4) Pressure ulcer of left foot, stage 3: CODE(S): L89.893 - Pressure ulcer of other site, stage 3 (5) Chronic ulcer of right leg with fat layer exposed: CODE(S): L97.912 - Non-pressure chronic ulcer of unspecified part of right lower leg with fat layer exposed (6) Chronic ulcer of right foot with fat layer exposed: CODE(S): L97.512 - Non-pressure chronic ulcer of other part of right foot with fat layer exposed (7) Difficulty in walking, not elsewhere classified: CODE(S): R26.2 - Difficulty in walking, not elsewhere classified (8) Chronic ulcer of left foot with necrosis of bone: CODE(S): L97.524 - Non-pressure chronic ulcer of other part of left foot with necrosis of bone (9) Non-pressure chronic ulcer of other part of left foot with fat layer exposed: CODE(S): L97.522 - Non-pressure chronic ulcer of other part of left foot with fat layer exposed (10) Osteomyelitis, chronic, ankle or foot: CODE(S): M86.679 - Other chronic osteomyelitis, unspecified ankle and foot (11) PAD (peripheral artery disease): CODE(S): I73.9 - Peripheral vascular disease, unspecified (12) Steroid long-term use: (13) Delayed wound healing: CODE(S): T14.8XXD - Other injury of unspecified body region, subsequent encounter (14) Fat pad atrophy of foot: CODE(S): L90.9 - Atrophic disorder of skin, unspecified PLAN: Plan Patient seen and examined.? Debridement was performed to the left foot as noted in the clinical nursing panel.? Debridement was also performed to the right lower extremity ulcers as noted in the clinical panel. Verbal consent was obtained and procedure tolerated well. Patient demonstrates chronic ulceration of bilateral foot with exposed bone of the subfirst metatarsal head, subfourth metatarsal head, and lateral 5th metat arsal head of the left foot. She has history of chronic OM at these sights and had completed IV Abx course. There is worsening in her status today with more necrotic tissue of the fifth digit, lateral aspect of the foot, second, third, and fourth digits of the left foot. There is redness across the dorsal foot with some swelling noted. I am placing her on oral antibiotics today. Rx doxycycline 100 mg twice daily and oral Augmentin 875/125 mg twice daily. Antibiotics will be taken for a total of 14-day duration. I discussed if she does not improve on oral antibiotics she will need to undergo IV antibiotic treatment with Dr. Clements. She was using the offloading inserts with significant improvement, however removed the left insole.? Compliance was again discussed and it is noted she c ontinues wearing cloth slippers today.? I discussed at length again today.? I discussed the other more successful ways to offload wounds, but these were not tolerated. She is not able to safely perform these due to her walking difficulty, balance, and fall risk status.?Benefits and risks of each opportunity were again discussed today. She was instructed to return to wearing sneaker with offloading modification made by Dr. Warner. She is noted to use tubigrip; she is to continue bilateral.? However states she removed the Tubigrip due to pain secondary to the compression. We discussed continuing use of the Tubigrip but a more milder form. It is noted a previous discussion was had that the swelling may be cardiac in origin.? She continues to follow-up with technical asst as recommended previously. ? She had prior infections and was treated by infectious disease, Dr. Clements.? This consisted of a culture guided antibiotic therapy. There are no signs infection noted today. She was previously treated at the [facility]-way facility for osteomyelitis and bacteremia, and has returned home now that this treatment has been completed. It is noted that Dr. Warner had discussed with patient going a more palliative wound care route with her chronic nonhealing ulcerations especially given significant comorbidities and treatment of healing with medications especially if she will not proceed with vascular intervention because treatment success is guarded.? She continues to elect to return biweekly. Currently patient is a poor surgical candidate from podiatry standpoint given her current vascular status and multiple comorbidities. LEAS 06/30/20 showed moderate distal small vessel disease bilaterally at the digits.? The left foot was noted to have biphasic pulses with CRUZ of 1.27 and TBI of 0.37.? The left PT was noncompressible.? The right foot PT and DP were noncompressible and TBI of 0.4 with triphasic and biphasic pulses.? Patient had procedure with Dr Oseguera 07/21/20.? Patient reports that the procedure went well.? Dr. Oseguera is considering additional angiogram with intervention at this time. ?I discussed returning for another vascular procedure. She has put this process on hold to seek intervention for her back pain but states she may consider returning.? Patient was again advised to call and schedule and proceed forward with recommendations as her issue will likely not heal the ulcers with limited lower extremity blood flow and ongoing delays in treatment.? She is very overwhelmed with all of her medical management and has placed a vascular plan on hold but will consider referral update. This was reinitiated by Dr. Warner on 12-22-21. She states that she has an appointment with Dr. Oseguera on 01/26/2022. I will continue to check in to ensure she follows up with vascular. I have again discussed importance of non-smoking, blood sugar control, weight management, offloading, proper nutrition/protein in her diet, and hygiene to optimize healing potential.? She denies home health and physical therapy in her home on a routine basis. She was encouraged continued participation. Discussed that her chronic steroid use for her RA can impact wound healing as well as impact her body's ability to mount an immune response.? Dr. Warner has discussed the option of transitioning her back to her medications under the management of her test facility engineer.?I agree that she needs to continue to follow Rheumatology for RA management. I also do not think this would benefit her wound healing progression, however she understands if she is having flareups and needs to return to the medication that is okay to proceed forward with more of a palliative type wound care plan. She sees Dr. Tovar. She has resumed.? Patient previously saw Dr. Steinberg for HBO evaluation. This was given prior to patient's recent heart attack and hospital admission. Patient will need to obtain cardiac clearance prior to being approved for HBO.? This was not given at this time.? We will potentially reconsider HBO therapy in the future if ever given cardiac clearance. ?We will continue to hold off on this due to her recent fatigue symptoms. Encouraged protein rich diet and protein supplements.? Discussed Vick supplementation.? Patient is overall frail appearance with muscle atrophy noted. All questions answered. She is stable and will follow up in 2 weeks.? She is on a palliative plan and feels very overwhelmed with coming to clinic on a routine basis. Dressings: Continue wound care to foot ulcerations daily.? To use Aquacel silver to subfirst metatarsal head, sub 4th metatarsal head ulcer sites and hydrogel to other ulcers of bilateral lower extremities. Adaptic to right heel? To moisturize the legs and feet daily.? This note was generated with [employer] dictation software. It may contain incorrect words, spelling, and punctuation that were not noted in checking the note before signing.
== END 2022-02-04 23:59 | disposition home or self-care (01) ==
LOC: WC 10:00
PROVIDERS: PCP Physician Assistant; Visit Provider Student in an Organized Health Care Education/Training Program
DX: I73.9 Peripheral vascular disease, unspecified (principal); L97.312 Non-pressure chronic ulcer of right ankle with fat layer exposed; L97.524 Non-pressure chronic ulcer of other part of left foot with necrosis of bone; M06.9 Rheumatoid arthritis, unspecified; M86.672 Other chronic osteomyelitis, left ankle and foot; M19.90 Unspecified osteoarthritis, unspecified site; R26.2 Difficulty in walking, not elsewhere classified; I25.2 Old myocardial infarction
CPT/HCPCS: 11042; 11043; 11045; 97597; 97598

== ENCOUNTER 2022-02-17 09:47 | Outpatient (RCR) | payer MEDICARE, SELFPAY ==
[2022-02-05 01:09] VITALS: BP 169/68; PULSE 99; RESP 18; TEMP 36.6; BMI 18.6
[2022-02-17 10:03] VITALS: BP 146/78; PULSE 92; TEMP 36.4; BMI 18.6
--- NOTE | 2022-02-17 10:07 | PCM.WC.PN ---
History of Present Illness Date of Service: 02/17/22 Chief Complaint: Left 1st metatarsal ulceration with chronic refractory osteomyelitis of the left first metatarsal left foot ulcer right ankle and leg ulcers (heel wound has clarified itself) right foot ulcer sub 1st metatarsal head right lateral ankle ulcer History of Wound: Kylah is a 76-year-old female who was referred here for treatment bilateral lower extremity ulcerations. Patient is noted to have significant fat pad atrophy likely secondary to her rheumatoid arthritis. Patient is on multiple medications for her rheumatoid arthritis which are impeding her wound healing. Patient is also prone to breakdown given lack of fat pad. Patient noted to have had MRIs which showed osteomyelitis and has been treated by Dr. Clements with antibiotic treatments. Patient is a poor surgical candidate given her poor healing status and multiple comorbidities. She has recently returned home from long term care including physical therapy, wound care, and IV antibiotics for refractory foot osteomyelitis and bacteremia. The patient has had vascular studies on 06/30/20 showed moderate distal small vessel disease bilaterally at the digits with some non compressible vessels. Patient saw her vascular surgeon, Dr. Oseguera, who did intervention on the patient on 07/21/20. Dr. Oseguera is considering additional angiogram with intervention. This exact plan is pending and actually put on hold at this time per the patient to focus on her other medical conditions at this time. She has now returned home and will consider this follow up due to recent worsening deterioration of both feet. The patient is noted to be a prior senior living user of prednisone and methotrexate for her rheumatoid arthritis. These are acknowledged to be possible inhibitors to wound healing. Patient noted to have painful feet due to her rheumatoid arthritis. Patient is also noted to have had recent heart attack and has been started on blood thinners for this. She offloads with Plastizote accommodative inserts in her shoes and slippers at home. She is a fall risk and was previously unable to wear surgical offloading shoes or boots. This was at modified by cutting a hole in the shoe to offload the entire side of the foot. She wears these only sometimes and present with slippers today (not recommended). She denies fever, chills, nausea, vomiting. Subjective Subjective This is a 76-year-old female with history of rheumatoid arthritis on immunosuppressant drugs, and history of peripheral vascular disease and fat pad atrophy to both forefoot.? She presents today to the wound care center for follow-up of multiple chronic ulcerations of her right foot and left foot.? She had vascular intervention with Dr. Oseguera for angiogram on 02/02/2022. Her sales representative jewelry today who is assisting her states that she has started to deteriorate following the procedure with the toes of the left foot becoming necrotic. She denies any constitutional symptoms.? She has no further complaints today. Objective Data Objective Data Vital Signs: Vital Signs Temp Pulse Resp BP 97.9 F 99 18 169/68 H 02/05/22 01:09 02/05/22 01:09 02/05/22 01:09 02/05/22 01:09 Weight: 46.266 kg Body Mass Index (BMI) 18.6 Physical Exam Const alert, oriented x3 and no apparent distress General Appearance: cooperative HEENT normocephalic Eyes General Eye: normal appearance of both eyes Neck General: normal visual inspection Lymph Lymphatic: no lymphadenopathy noted and no lymphedema noted Resp normal respiratory effort Cardio regular rate and regular rhythm Extremity no joint enlargement and no calf tenderness Extremity Narrative: No calf tenderness Diminished pulses bilaterally. CFT absent on left toes 2,3,4,5.?Blackened, necrotic, gangrenous digits 1,2,3,4, and 5 of the left foot with extension to the dorsal foot ,medial ankle, and posterior heel. Nonpitting pedal edema noted to the forefoot bilaterally Muscle wasting noted bilaterally unchanged lateral right ankle ulcer - granular and fibrous base Right heel with adhered eschar. left foot sub 1st metatarsal head ulcer, subfourth metatarsal and lateral forefoot/fifth metatarsal ulcer with continued exposed bone and now eschar progression plantarly Skin no jaundice Skin Narrative: Some erythema left foot with eschar General Skin Exam: venous stasis and dermatitis Neuro oriented x3 Debridement Note Debridement Note No debridement was completed: No debridement was completed today Assessment/Plan Assessment/Plan (1) Chronic ulcer of left foot with necrosis of bone: CODE(S): L97.524 - Non-pressure chronic ulcer of other part of left foot with necrosis of bone (2) Difficulty in walking, not elsewhere classified: CODE(S): R26.2 - Difficulty in walking, not elsewhere classified (3) Chronic ulcer of right lower extremity with fat layer exposed: CODE(S): L97.912 - Non-pressure chronic ulcer of unspecified part of right lower leg with fat layer exposed (4) Chronic ulcer of right leg with fat layer exposed: CODE(S): L97.912 - Non-pressure chronic ulcer of unspecified part of right lower leg with fat layer exposed (5) Osteomyelitis, chronic, ankle or foot: CODE(S): M86.679 - Other chronic osteomyelitis, unspecified ankle and foot (6) Fat pad atrophy of foot: CODE(S): L90.9 - Atrophic disorder of skin, unspecified (7) PAD (peripheral artery disease): CODE(S): I73.9 - Peripheral vascular disease, unspecified (8) Chronic ulcer of toe of right foot with fat layer exposed: CODE(S): L97.512 - Non-pressure chronic ulcer of other part of right foot with fat layer exposed (9) Delayed wound healing: CODE(S): T14.8XXD - Other injury of unspecified body region, subsequent encounter (10) Rheumatoid arthritis: CODE(S): M06.9 - Rheumatoid arthritis, unspecified QUALIFIERS: Laterality: bilateral Rheumatoid arthritis location: foot Rheumatoid factor presence: unspecified presence Qualified Code(s): M06.9 - Rheumatoid arthritis, unspecified (11) Dry gangrene: CODE(S): I96 - Gangrene, not elsewhere classified PLAN: Plan Patient seen and examined.? No debridement of ulcerative sites performed today. Will await results of recent vascular intervention by Dr. Oseguera on 02/02/22 prior to any debridement of the Right lower extremity. Patient demonstrates chronic ulceration of bilateral foot with exposed bone of the subfirst metatarsal head, subfourth metatarsal head, and lateral 5th metatarsal head of the left foot. She has history of chronic OM at these sights and had completed IV Abx course. Following her recent vascular intervention her condition has progressively worsened with Blackened, necrotic, gangrenous digits 1,2,3,4, and 5 of the left forefoot with extension to the dorsal foot, medial ankle, and posterior heel. Digits are atrophied secondary to dry gangrene of the forefoot. There is some mild erythema of the dorsal foot near the eschar sites. I discussed with her and her sales representative jewelry today a below the knee amputation of the left lower extremity. All lower extremity ulcerations and eschars were painted with betadine and dressed with dry sterile dressing. She was using the offloading inserts with significant improvement, however removed the left insole.? Compliance was again discussed and it is noted she continues wearing cloth slippers today.? I discussed at length again today.? I discussed the other more successful ways to offload wounds, but these were not tolerated. She is not able to safely perform these due to her walking difficulty, balance, and fall risk status.?Benefits and risks of each opportunity were again discussed today.? She was instructed to return to wearing sneaker with offloading modification made by Dr. Warner. She is noted to use tubigrip; she is to continue bilateral.? However states she removes the Tubigrip due to pain secondary to the compression.?We discussed continuing use of the Tubigrip but a more milder form. It is noted a previous discussion was had that the swelling may be cardiac in origin.?She continues to follow-up with measurement operator as recommended previously. ? She had prior infections and was treated by infectious disease, Dr. Clements.? This consisted of a culture guided antibiotic therapy.? There are no signs infection noted today. She was previously treated at the intermediate facility for osteomyelitis and bacteremia. She has returned to the nursing facility post-vascular intervention. It is noted that Dr. Warner had discussed with patient going a more palliative wound care route with her chronic nonhealing ulcerations especially given significant comorbidities and treatment of healing with medications especially if she will not proceed with vascular intervention because treatment success is guarded.?She continues to elect to return biweekly.? Currently patient is a poor surgical candidate from podiatry standpoint given her current vascular status, extension of gangrene and multiple comorbidities. LEAS 06/30/20 showed moderate distal small vessel disease bilaterally at the digits.? The left foot was noted to have biphasic pulses with CRUZ of 1.27 and TBI of 0.37.? The left PT was noncompressible.? The right foot PT and DP were noncompressible and TBI of 0.4 with triphasic and biphasic pulses.? Patient had procedure with Dr Oseguera 07/21/20.? Patient reports seeing Dr. Oseguera for angiogram of both lower extremities on 02/02/22. Her condition worsened following intervention. I am awaiting report from Dr. Oseguera in regards to procedure and status of blood flow/updated LEAS. I have again discussed importance of non-smoking, blood sugar control, weight management, offloading, proper nutrition/protein in her diet, and hygiene to optimize healing potential.? She denies home health and physical therapy in her home on a routine basis.? She is now wheelchair bound. Discussed that her chronic steroid use for her RA can impact wound healing as well as impact her body's ability to mount an immune response.? Dr. Warner has discussed the option of transitioning her back to her medications under the management of her forward air controller/air officer.?I agree that she needs to continue to follow Rheumatology for RA management.? I also do not think this would benefit her wound healing progression, however she understands if she is having flareups and needs to return to the medication that is okay to proceed forward with more of a palliative type wound care plan. She sees Dr. Tovar. She has resumed.? Patient previously saw Dr. Steinberg for HBO evaluation. This was given prior to patient's recent heart attack and hospital admission. Patient will need to obtain cardiac clearance prior to being approved for HBO.? This was not given at this time.? We will potentially reconsider HBO therapy in the future if ever given cardiac clearance. ?We will continue to hold off on this due to her recent fatigue symptoms and worsening progression. Encouraged protein rich diet and protein supplements.? Discussed Vick supplementation.? Patient is overall frail appearance with muscle atrophy noted. All questions answered. She is stable and will follow up in 2 weeks.? She is on a palliative plan and feels very overwhelmed with coming to clinic on a routine basis. Dressings: Continue wound care to foot ulcerations daily.? To use Aquacel silver to subfirst metatarsal head, sub 4th metatarsal head ulcer sites and hydrogel to other ulcers of bilateral lower extremities. Adaptic to right heel? To moisturize the legs and feet daily.? This note was generated with [employer] dictation software. It may contain incorrect words, spelling, and punctuation that were not noted in checking the note before signing.
== END 2022-03-07 23:59 | disposition home or self-care (01) ==
LOC: WC 09:47
PROVIDERS: PCP Physician Assistant; Visit Provider Student in an Organized Health Care Education/Training Program
DX: L97.524 Non-pressure chronic ulcer of other part of left foot with necrosis of bone (principal); I96 Gangrene, not elsewhere classified; L97.314 Non-pressure chronic ulcer of right ankle with necrosis of bone; L97.512 Non-pressure chronic ulcer of other part of right foot with fat layer exposed; L97.912 Non-pressure chronic ulcer of unspecified part of right lower leg with fat layer exposed; M05.79 Rheumatoid arthritis with rheumatoid factor of multiple sites without organ or systems involvement; M06.9 Rheumatoid arthritis, unspecified; M86.679 Other chronic osteomyelitis, unspecified ankle and foot; I73.9 Peripheral vascular disease, unspecified; R26.2 Difficulty in walking, not elsewhere classified
CPT/HCPCS: 99213; G0463

== ENCOUNTER 2022-04-20 09:48 | Inpatient (IN) | payer MEDICARE, SELFPAY ==
[2022-04-14 15:31] LABS: Thyroid Stim Hormone (TSH) 5.61 uIU/mL (0.358-3.74)
[2022-04-20] VITALS (12 sets, daily range): BP systolic 133–174; BP diastolic 60–90; PULSE 76–108; RESP 12–18; TEMP 36.7–37.4; O2SAT 93–100; BMI 19.2; BMI 16.7
[2022-04-20] MEDS: Lactated Ringers 1,000 ML 15 ML IV ×2 (11:09→14:32)
--- NOTE | 2022-04-20 11:27 | HP.PCM_ITS ---
History and Physical Medications cyclosporine 0.05 % eye drops in a dropperette (Restasis) 1 drp OP BID DRY EYE 12/21/16 [History Confirmed 04/14/22] hydroxychloroquine 200 mg tablet 200 mg PO DAILYCM RA 12/21/16 [History Confirmed 04/14/22] prednisone 1 mg tablet 10 mg PO DAILY RA 12/21/16 [History Confirmed 04/14/22] tramadol 50 mg tablet 300 mg PO DAILY RA 12/21/16 [History Confirmed 03/15/22] clopidogrel 75 mg tablet 75 mg PO DAILY BLOOD THINNER 07/28/20 [History Confirmed 04/14/22] atorvastatin 80 mg tablet 80 mg PO QHS CHOLESTEROL 10/13/20 [History Confirmed 04/14/22] metoprolol succinate 50 mg tablet,extended release 24 hr 50 mg PO DAILY BP 10/13/20 [History Confirmed 04/14/22] prednisone 2.5 mg tablet 2.5 mg PO DAILY RA 02/24/22 [History Confirmed 04/14/22] pantoprazole 40 mg tablet,delayed release 40 mg PO DAILY GERD 03/15/22 [History Confirmed 04/14/22] polyethylene glycol 3350 17 gram oral powder packet (Miralax) 17 g PO PRN PRN Constipation 03/15/22 [History Confirmed 04/14/22] sennosides 8.6 mg-docusate sodium 50 mg tablet (Senokot-S) 1 tab-cap PO BID CONSTIPATION 03/15/22 [History Confirmed 03/15/22] levothyroxine 88 mcg tablet (Euthyrox) 125 mcg PO DAILY HYPOTHYROIDISM 04/14/22 [History Confirmed 04/14/22] mirtazapine 7.5 mg tablet 7.5 mg PO DAILY 04/14/22 [History Confirmed 04/14/22] oxycodone-acetaminophen 5 mg-325 mg tablet 1 tab PO Q8H PRN 04/14/22 [History Confirmed 04/14/22] PFSH Medical History? Anxiety Atrial fibrillation Depression GERD (gastroesophageal reflux disease) High cholesterol History of anemia History of arteriography History of bruising easily History of pain when walking History of pressure injury of skin History of stress test Hx of coronary angiogram Hx of edema Hx of falling Hx of steroid therapy Hypertension Lives in [facility]pc Myocardial infarct Non-smoker Peripheral vascular disease Rheumatoid arthritis Wears glasses Surgical History? History of coronary artery stent placement History of thyroidectomy Hx of parathyroidectomy Family History? Other Scleroderma Valvular heart disease Social History? household members:? spouse number of children:? 2 Smoking Status:? Never smoker alcohol intake:? never substance use type:? does not use HPI HPI HPI: JENNIFER MEREDITH, is a 77 F who presents for planned below knee amputation next . No F/C/purulence, no increased pain. She does have a new sacral wound that has not responded well to off loading. Original surgery plans were delayed due to severe hypothyroid which has improved with adequate replacement. ROS General General: Yes weight change, appetite and fatigue; No colon cancer, breast cancer or weakness HEENT HEENT: No difficulty swallowing, eye injury, eye surgery, swollen glands or hoarseness Endo Endocrine: Yes thyroid disease; No diabetes mellitus, thyroid cancer, Hair loss, heat intolerance or cold intolerance Skin Skin: No rash or changing moles Musc Musculoskeletal: Yes back problems, rheumatoid arthritis and joint pain; No arthritis or gout Cardio Cardiovascular: Yes heart disease, high blood pressure, heart attack and heart stent; No murmur, pacemaker, atrial fibrillation, palpitations, shortness of breat with exertion or chest pain Psych Psychiatric: Yes depression; No anxiety or hearing voices Resp Respiratory: No shortness of breath, No sleep apnea, No cough, Yes COPD, No asthma, No emphysema and No wheezing Gastro Gastrointestinal: No abdominal pain, No nausea or vomiting, No diarrhea, No constipation, No blood in stool, No acid reflux, Yes hemorrhoids, No ulcers, No gallbladder problem and No black,tarry stools Alvin Hematologic: Yes blood thinners, No blood disorders, No bleeding, No anemia and No blood clots Neuro Neurologic: No system reviewed and no additional complaints, except as documented, No as per HPI, No abnormal gait, No abnormal hearing, No abnormal movements, No abnormal speech, No behavioral changes, No burning sensations, No confusion, No convulsions, No disequilibrium, No dizziness, No localized weakness, No frequent falls, No headache(s), No lack of coordination, No loss of vision, No memory loss, No numbness, No other visual disturbances, No radicular pain, No restless legs, No sensory deficit, No syncope, No tingling, No tremor(s), No weakness and No other Exam Const General: cooperative, comfortable, no acute distress and well developed Orientation: alert, awake and oriented x3 HENMT Head: normocephalic and atraumatic Ears: hearing grossly normal bilaterally Nose: external nose normal Eyes General: appearance normal, both eyes and all related structures EOM: EOM intact bilaterally Neck Neck: normal visual inspection and trachea midline Resp Effort & Inspection: normal respiratory effort, able to speak in complete sentences, symmetric chest movement, no audible wheezes, not labored, no stridor and no use of accessory muscles Cardio Rate: regular rate Rhythm: regular rhythm Pulses: brachial pulses present and femoral pulses present Skin General: erythema Neuro Cranial Nerves: CN's II-XI intact bilaterally and EOM intact bilaterally Speech: speech normal Sensory Exam: no sensory deficits noted Psych Appearance: grossly normal and well kempt Mental Status: mental status grossly normal Mood: congruent mood Speech and Movement: speech and movement normal Thought Content: normal Judgment: judgment good Coding Level of Care Code Off vis,est,level 2 Diagnoses Atherosclerosis of [place] arteries of extremities with gangrene, left leg? I70.262 Assessment and Plan Assessment and Plan (1) Atherosclerosis of [place] arteries of extremities with gangrene, left leg: ?Status:?Chronic ?Plan:left below knee amputation
--- NOTE | 2022-04-20 11:30 | AMP_PTH ---
PATIENT: JENNIFER MEREDITH LOC: MS3 U#:[id number] AGE/SX: 77/F ROOM: [facility] [place] RE04/20/[address]: Dr. Dudley Rivera MD : 1945 BED: 1 DIS: 04/27/2022 SPEC #: [id number] RECD: 04/21/22 11:20 STATUS: ZARA LUCIANO #: [id number] AMY: 04/20/22 11:[address]: Dudley Rivera DEPT: SURGICAL PATHOLOGY RECD BY: Amber Mcdonough ENTERED: 04/21/22 11:21 SP TYPE: Amputation OTHR DR: NARCISO Lopez Tissues: Leg, NOS Procedures: Decalcification bone/plaque Surgery Specimen Level V HEADER OPERATION: Left amputation below knee PRE-OP DIAGNOSIS: Atherosclerosis of [place] arteries, gangrene left leg TISSUE SUBMITTED: Left lower leg MICROSCOPIC DIAGNOSIS Left lower leg, below the knee amputation: Mummification of toes and foot. Cutaneous ulcers with acute and chronic inflammation and ulceration. Calcaneal bone with acute and chronic osteomyelitis. Anterior and posterior tibial arteries with severe, calcific atherosclerotic disease. AM:shira 04/27/2022 MICROSCOPIC DESCRIPTION Slides are reviewed. GROSS DESCRIPTION Received in fixative is one container labeled with the patient's name and designated left lower leg. The specimen consists of a left lower leg amputation consisting of foot, toes, heel, bone and attached soft tissue. The soft tissue from anterior margin of resection measures 26 cm. A 1 cm segment of tibia extends beyond the anterior soft tissue margin of resection and a 5.5 cm segment of fibula extends beyond the soft tissue margin of resection. All five toes and anterior portion of the foot is black and mummified. Two ulcers are identified, one on the lateral malleolus measuring 3.4 x 3 cm and one on the heel measuring 5.5 x 4 cm. Sectioning of the anterior and posterior tibial arteries reveal severe calcific atherosclerotic disease. / AM:shira 04/21/2022 Java Lead Engineer sections are submitted as follows: 1 - skin and soft tissue at margin of resection, 2 - skin, soft tissue and ulcer from heel, 3 - skin and soft tissue from ulcer from malleolus, 4 - longitudinal section of great toe, 5 - anterior tibial artery, 6 - posterior tibial artery. Note, blocks 4-6 are submitted after appropriate decalcification. / SJ:shira 04/26/2022 TC:2 CPT: 62643, 25522
[2022-04-20] MEDS: Bupivacaine 0.25% 30 ML Vial (13:30)
[2022-04-20] MEDS: HYDROmorphone Inj 0.2 MG/ML SYRINGE IV ×3 (16:35→22:23)
--- NOTE | 2022-04-20 18:14 | OP.PCM_ITS ---
Report of Operation Date of Procedure: 04/20/22 Pre-Operative Diagnosis: Atherosclerosis with gangrene of the left lower extrem ity Post-Operative Diagnosis: Same Surgery/Procedure Performed:: Left below-knee amputation Surgeon: Dudley Rivera Type of Anesthesia: General Estimated Blood Loss (mL): 250 Description of Procedure: HPI: Patient is a 77-year-old female with extensive gangrene of the left forefoot and midfoot with known pre-existing arterial insufficiency. And she presented the extent of tissue loss precluded limb salvage so no revascularization was undertaken. After medical optimization she presents now for elective below-knee amputation. Description of procedure: Upon obtaining informed consent and verification correct patient procedure site patient was taken to the operating room where she was placed under general anesthesia. She was then positioned prepped and draped in usual sterile fashion a time was performed. Skin incision was made with posterior flap configuration, with satisfactory skin edge bleeding from all cut edges. Bovie cautery was then used to dissect down through the subcutaneous tissue to the level of the fascia and the fascia incised. Bovie was used to clear any connective tissue in the anterior surface of the tibia as well as the anterior lateral surface of the fibula. Muscle belly of the anterior lateral compartment was divided with Bovie exposing the anterior tibial artery. This was then clamped and divided and ligated with 2-0 silk ties. We then turned our attention medially where dissection was carried through the medial aspect of the posterior muscle compartments exposing the peroneal and posterior tibial arteries. These were then clamped proximal and distal and divided, and a periosteal elevator utilized to mobilize connective tissue from the remainder of the tibia and fibula. The tibia was then divided using a reciprocating saw, with an anterior bevel. A bone cutter was then used to divide the fibula approximately 2 cm proximal to the cut edge of the tibia. An amputation knife was then used to fashion the posterior flap and the specimen removed. The proximal clamped vessels were then ligated with silk ties. The nerve was then retracted distally, ligated with silk tie, injected with Marcaine and divided. This was then allowed to retract into the more proximal muscle tissue. The wound was then copiously irrigated with saline and inspected for hemostasis. The distal muscle was then trimmed to reach appropriately, and the incision closed with 2-0 Vicryl in interrupted 3-0 nylon for skin. Patient then placed in a posterior splint and Varun wrap and awakened from anesthesia. He was then taken to recovery room with anticipated admission to the medical floor.
[2022-04-20] MEDS: KCL 20MEQ in D5.45NS 20 MEQ/1,000 ML IV.SOLN. 50 MEQ IV (18:48)
[2022-04-20] MEDS: Senna/Docusate Sodium 1 Tablet PO (22:25)
[2022-04-20] MEDS: Atorvastatin Calcium 80 MG Tablet PO (22:25)
[2022-04-21] VITALS (10 sets, daily range): BP systolic 134–150; BP diastolic 69–89; PULSE 97–114; RESP 16–18; TEMP 36.8–37.4; O2SAT 95–98
[2022-04-21] MEDS: traMADol 50 MG Tablet PO ×4 (00:06→18:13)
[2022-04-21] MEDS: oxyCODONE 5 MG Tablet PO ×3 (00:19→19:39)
[2022-04-21] MEDS: HYDROmorphone Inj 0.2 MG/ML SYRINGE IV ×4 (03:38→22:23)
[2022-04-21] MEDS: Levothyroxine 125 MCG Tablet PO (05:47)
[2022-04-21 07:18] LABS: Absolute Lymphocyte Count 0.95 X10^3/uL (0.83-4.51); Absolute Neutrophil Count 13.8 X10^3/uL (2.0-7.7); Basophil# 0.02 X10^3/uL; Basophil% 0.1 % (0-1); Hematocrit 33.5 % (37-47); Hemoglobin 10.2 g/dL (12.0-15.0); Lymphocyte # 0.95 X10^3/ul (0.83-4.51); Lymphocyte % 5.9 % (19-41); Mean Corp Hgb Conc 30.4 g/dL (32-36); Mean Corpuscular Hgb 30.1 pg (27.0-32.0); Mean Corpuscular Volume 98.8 fL (81-99); Mean Platelet Vol. 10.3 fl (6.2-12.0); Monocyte# 1.34 X10^3/uL; Monocyte% 8.3 % (0-10); NRBC Flagged by Analyzer 0 % (0-5); Neutrophil # 13.77 X10^3/uL (2.7-7.7); Neutrophil % 85.2 % (47-70); Platelet Count 279 K/mm3 (150-450); RBC Distribution Width CV 16.7 % (11.6-14.6); RBC Distribution Width SD 60.7 fl (35.1-43.9); Red Blood Count 3.39 M/mm3 (4.2-5.4); White Blood Count 16.2 K/mm3 (4.4-11.0)
[2022-04-21 07:44] LABS: Anion Gap 5 (5-15); BUN 18 mg/dL (7-18); BUN/Creat Ratio 30.1 RATIO (10-20); Calcium,Total 7.9 mg/dL (8.5-10.1); Chloride 104 mmol/L (98-107); EST Glomerular Filtration Rate 103 mL/min (>60); Est Glom Filt Rate - Afr Amer 125 mL/min (>60); Estimated Creatinine Clearance 32.01 ml/min; Glucose 83 mg/dL (74-106); Potassium 3.9 mmol/L (3.5-5.1); Sodium Level 139 mmol/L (136-145)
[2022-04-21] MEDS: predniSONE 5 MG Tablet 12.5 MG PO (08:43)
[2022-04-21] MEDS: Metoprolol(XL)Succ 50 MG Tablet PO (08:44)
[2022-04-21] MEDS: Pantoprazole Sodium 40 MG Tablet PO (08:44)
[2022-04-21] MEDS: Clopidogrel Bisulfate 75 MG Tablet PO (08:44)
[2022-04-21] MEDS: Hydroxychloroquine 200 MG Tablet PO (08:44)
[2022-04-21] MEDS: Senna/Docusate Sodium 1 Tablet PO ×2 (08:45→22:13)
[2022-04-21] MEDS: Mirtazapine 15 MG Tablet 7.5 MG PO (08:45)
[2022-04-21] MEDS: DAKIN'S SOL HALF STRENGTH (=0.25%) 1 APPLIC TOPICAL (09:13)
--- NOTE | 2022-04-21 09:29 | WOUNDNOTE ---
wound photo: right heel
--- NOTE | 2022-04-21 09:29 | WOUNDNOTE ---
wound photo: sacrum
[2022-04-21] MEDS: Enoxaparin 40 MG/0.4 ML Syringe SC (10:21)
--- NOTE | 2022-04-21 11:58 | CHAPLAIN ---
Type of Pastoral Visit _x__ Initial Visit ___ Follow-up Visit ___ On-call Visit ___ General Patient Visit ___ Spiritual Assessment ___ Family Conference ___ Bereavement ___ Rapid Response ___ Code Blue ___ Other (describe below) Pastoral Care Referral From _x__ Patient _x__ Family ___ Nurse ___ Physician ___ Crm Functional Analyst ___ Senior C Web Developer ___ Other (describe below) Sacrament/Intervention _x__ Active listening ___ Anointing ___ Sikh ___ Bereavement ___ Communion _x__ Christy exploration ___ _x__ Life review _x__ Prayer ___ Reconciliation ___ Sacrament of Sick _x__ Supportive presence ___ Wedding ___ Other (describe below) Pastoral Comments patient and spouse together in the room; pt and spouse both answer the questions; couple has been 57 years and they have two sons living in the area; pt is member of a local gnosticist and receives good care from her own construction ironworker helper; pt states that her support is family and trusting in God; pt admits to pain and to difficult situation; spouse agrees to the same for her; pt welcomes prayer and presence
--- NOTE | 2022-04-21 12:34 | CASEMGMT ---
Discharge Glass Enamel Mixer This telegraphic typewriter mechanic sent updates to [facility] via [employer]. Gema HARTMAN Hop Weigher
[2022-04-21] MEDS: KCL 20MEQ in D5.45NS 20 MEQ/1,000 ML IV.SOLN. 50 MEQ IV (14:58)
[2022-04-21] MEDS: Juven (unflavored) Packet 1 PACKET PO (18:14)
[2022-04-21] MEDS: Atorvastatin Calcium 80 MG Tablet PO (22:13)
[2022-04-22] VITALS (11 sets, daily range): BP systolic 106–152; BP diastolic 50–78; PULSE 97–107; RESP 16–18; TEMP 36.4–36.9; O2SAT 94–100
[2022-04-22] MEDS: traMADol 50 MG Tablet PO ×4 (00:41→18:14)
[2022-04-22] MEDS: oxyCODONE 5 MG Tablet PO ×2 (03:56→15:47)
[2022-04-22] MEDS: Levothyroxine 125 MCG Tablet PO (06:18)
[2022-04-22] MEDS: DAKIN'S SOL HALF STRENGTH (=0.25%) 1 APPLIC TOPICAL (08:29)
[2022-04-22] MEDS: HYDROmorphone Inj 0.2 MG/ML SYRINGE IV ×3 (08:30→21:05)
[2022-04-22] MEDS: Enoxaparin 40 MG/0.4 ML Syringe SC (09:07)
[2022-04-22] MEDS: Pantoprazole Sodium 40 MG Tablet PO (09:07)
[2022-04-22] MEDS: Clopidogrel Bisulfate 75 MG Tablet PO (09:07)
[2022-04-22] MEDS: Mirtazapine 15 MG Tablet 7.5 MG PO (09:07)
[2022-04-22] MEDS: Juven (unflavored) Packet 1 PACKET PO ×2 (09:08→18:13)
[2022-04-22] MEDS: Hydroxychloroquine 200 MG Tablet PO (09:08)
[2022-04-22] MEDS: predniSONE 5 MG Tablet 12.5 MG PO (09:20)
[2022-04-22] MEDS: KCL 20MEQ in D5.45NS 20 MEQ/1,000 ML IV.SOLN. 50 MEQ IV (09:24)
[2022-04-22] MEDS: Metoprolol(XL)Succ 50 MG Tablet PO (09:24)
[2022-04-22] MEDS: Senna/Docusate Sodium 1 Tablet PO ×2 (09:25→21:02)
--- NOTE | 2022-04-22 10:25 | CASEMGMT ---
Pt confirms she has a living will and health care POA. Message sent to [employer] requesting documents be sent to [facility] to place on pt EMR. FAVIOLA Ren
--- NOTE | 2022-04-22 10:28 | CASEMGMT ---
Addendum entered by Klarissa Dickerson 04/22/22 13:40: MERRY SOUSA contacted by [employer] to explain precert will be needed for patient to return. SW met with patient and informed patient precert is needed to return to SNF and could take a few days to obtain. SW also explained patient will have to be medically ready before she will be able to discharge. Patient reported an understanding. SW completed green sheet. Plan: return to [facility] pending pre-cert and being medically ready. Klarissa SMALL,SUNDAY Original Note: MERRY Note SW met with patient and introduced herself and SW role with [facility]. SW inquired about patient's plan for discharge. Patient reported she was temporarily fpc at [facility] and planned to return until she is able to return home. Patient stated she has already been [facility] three months. SW then inquired about patient's AD paperwork, explaining the hospital does not have forms on file. Patient reported [facility] should have the paperwork and confirmed her HCPOA is her son. Patient stated if [facility] wasn't able to provide a copy of her AD, she had a copy of the paperwork at home she could provide. SW contacted [facility] via [employer] to inquire about patient's current level of care and ability to return once medically ready. SW also inquired about patient's HCPOA and LW forms, requesting a copy of those forms be sent to the hospital to add to her file. Plan: Return to [facility] once medically ready, unknown if pre-cert is needed at this time, awaiting follow-up contact from [facility]. SUNDAY Mendoza
[2022-04-22] MEDS: Polyethylene Glycol 3350 17 GM PACKET PO (12:03)
--- NOTE | 2022-04-22 13:26 | CASEMGMT ---
Discharge Financial Planning Consultant This sign writer letterer or painter talked with [facility]. Pre-cert has been started as pre-cert is needed for patient to return when medically ready. MERRY Saeed has been notified. Gema HARMTAN Director Community Health Nursing
--- NOTE | 2022-04-22 13:57 | CASEMGMT ---
Received tc from Magalie at 's office requesting [facility] be contacted for a rigid removable device with extension. Made her aware this cannot happen in the hospital setting. TC back to Magalie to request place this on his dc instructions for the SNF to follow through on. She states she already called [facility] and they will be here tomorrow for the fitting and bringing of device. Notified CM director.
--- NOTE | 2022-04-22 15:22 | PN.SURG_ITS ---
Subjective Subjective Patient reports she is doing okay. Denies constitutional symptoms. She reports some pain associated with her left BKA but reports most significant pain is from her sacral wound. She continues to require dilaudid IV for her pain as she says the PO medications do not provide sufficient relief. She also complained of constipation. Her surgical site dressing is clean, dry, and intact. Objective Data Objective Data Vital Signs: Vital Signs Temp Pulse Resp BP Pulse Ox O2 Del Method O2 Flow Rate 98.4 F 103 H 18 139/63 H 95 Room Air 2 04/22/22 09:45 04/22/22 09:45 04/22/22 09:45 04/22/22 09:45 04/22/22 12:15 04/22/22 09:45 04/21/22 04:21 Oxygen Flow Rate (L/min) 2 Oxygen Delivery Method Room Air Weight: 98 lb 1.691 oz Body Mass Index (BMI) 16.7 Intake & Output: Intake and Output for Last 24 Hours 04/20/22 04/21/22 04/22/22 23:59 23:59 23:59 Intake Total 1200 / 1200 1920.25 / 1920.25 921.66 / 921.66 Output Total 400 / 675 875 / 2125 2600 / 2600 Balance 800 / 525 1045.25 / -204.75 -1678.34 / -1678.34 Medical Nutrition Assessment Dietitian: Malnutrition Criteria Met Start: 04/21/22 16 :45 Freq: Status: Active Protocol: Document 04/21/22 16:45 RMA (Rec: 04/21/22 16:45 RMA [id number]) Nutrition Malnutrition Evidence of Malnutrition Exists Yes Malnutrition (moderate): Chronic Evidenced By Suboptimal Energy Intake ( Moderate),Weight Loss ( Moderate),Physical Changes ( Moderate) Intake Problem Increased Nutrient Needs (specify) Etiology for protein related to increased demands for wound healing Signs/Symptoms as evidenced by multiple pressure wound/injuries and s/ p L BKA Status Active Problem Clinical Problem Chronic Disease or Condition Related Malnutrition Etiology Moderate protein-calorie malnutrition in the context of chronic disease and debility related to inadequate oral intake, increased energy expenditure and increased nutrient needs Signs/Symptoms as evidenced by visible muscle /fat wasting in the clavicle, orbital and temporal regions, BMI 16.7, wt loss 7% x past 6- 12 months and suspected inadequate oral intake meeting less than 75% estimated nutrition needs. Status Active Problem Recommendation Dietitian Recommendations/Changes Will continue liberalized regular diet as ordered and monitor PO adequacy as established. Will add Vick BID for wound healing. Will add 240 ml cyril ensure plus high protein BID w/ breakfast and dinner; will add cyril ensure pudding w/ lunch meal. Adjust ONS as needed to optimize PO/wound healing and prevent wt loss. Lab / Micro Data Result Diagrams: 04/21/22 05:55 04/21/22 05:55 Physical Exam Const alert, oriented x3 and no apparent distress General Appearance: cooperative HEENT head/scalp atraumatic, hearing grossly normal bilaterally and external nose normal Eyes EOMs intact bilaterally General Eye: normal appearance of both eyes Neck General: normal visual inspection and trachea midline Resp normal respiratory effort Effort and Inspection: able to speak in complete sentences and symmetric chest movement; Negative for stridor, uses accessory muscles or audible wheezes Cardio regular rate and regular rhythm Peripheral Pulses: brachial pulses present and radial pulses present Extremity Extremity Narrative: Left BKA stump with dressing clean, dry, and intact. Right heel with pressure ulcer, covered by eschar. Skin Wounds: wounds noted Wound Narrative: Patient has pressure ulcer to right heel and sacral pressure ulcer. Dressings were not removed for examination at this time. Neuro oriented x3, CN's II-XII intact bilaterally, no focal motor deficits and no sensory deficits noted Speech: speech normal Psych mental status grossly normal, thought process normal, cooperative, affect normal, speech normal and activity/motor behavior normal Memory / Cognition: memory grossly intact Insight: insight good Judgement: judgement good Assessment & Plan Assessment/Plan (1) Atherosclerosis of [place] arteries of extremities with gangrene, left leg: PLAN: Plan Patient is s/p left BKA POD 2. She is hemodynamically stable. No fevers, chills. Continue to encourage oral intake, will discontinue IV fluids. Regarding constipation, patient was able to have a bowel movement following administration of miralax. Patient also has scheduled senna/docusate sodium. Her amputation site dressing remains in place, will be taken down tomorrow by Dr. Rivera. Placed order with [employer] for rigid removable device with extension for protection of amputation stump, they will bring device tomorrow, 04/23/22. Will want to start working towards pain management with oral medications versus IV as we plan for discharge. Charges/Coding Visit Charges Inpatient E&M: 28113 Subs Hosp L1
[2022-04-22] MEDS: Atorvastatin Calcium 80 MG Tablet PO (21:01)
[2022-04-22] MEDS: 0.9% Saline Lock 10 ML Syringe IV (21:05)
[2022-04-23] VITALS (8 sets, daily range): BP systolic 112–126; BP diastolic 58–78; PULSE 94–98; RESP 14–18; TEMP 36.4–36.9; O2SAT 94–96
[2022-04-23] MEDS: traMADol 50 MG Tablet PO ×5 (00:01→23:05)
[2022-04-23] MEDS: oxyCODONE 5 MG Tablet PO ×3 (00:02→22:01)
[2022-04-23] MEDS: Levothyroxine 125 MCG Tablet PO (06:30)
[2022-04-23] MEDS: Juven (unflavored) Packet 1 PACKET PO ×2 (08:35→18:33)
[2022-04-23] MEDS: Enoxaparin 40 MG/0.4 ML Syringe SC (08:36)
[2022-04-23] MEDS: DAKIN'S SOL HALF STRENGTH (=0.25%) 1 APPLIC TOPICAL (08:38)
[2022-04-23] MEDS: Metoprolol(XL)Succ 50 MG Tablet PO (08:39)
[2022-04-23] MEDS: Pantoprazole Sodium 40 MG Tablet PO (08:39)
[2022-04-23] MEDS: Senna/Docusate Sodium 1 Tablet PO ×2 (08:39→22:00)
[2022-04-23] MEDS: Hydroxychloroquine 200 MG Tablet PO (08:40)
[2022-04-23] MEDS: predniSONE 5 MG Tablet 12.5 MG PO (08:40)
[2022-04-23] MEDS: Clopidogrel Bisulfate 75 MG Tablet PO (08:42)
[2022-04-23] MEDS: Mirtazapine 15 MG Tablet 7.5 MG PO (08:42)
--- NOTE | 2022-04-23 10:45 | PN.SURG_ITS ---
Subjective Subjective Doing well overall. No N/V/F/C. Stump protector placed this morning. Amputation stump pain well controlled, cont sacral wound pain. Objective Data Objective Data A&O x 3, NAD RRR Resp non-labored, no accessory muscle use Inc- minimal skin edge spotting, viable flap edges, no hematoma, no erythema/purulence Vital Signs: Vital Signs Temp Pulse Resp BP Pulse Ox O2 Del Method O2 Flow Rate 97.8 F 97 14 114/75 94 Room Air 2 04/23/22 10:00 04/23/22 10:00 04/23/22 10:00 04/23/22 10:00 04/23/22 10:00 04/23/22 10:00 04/23/22 05:00 Oxygen Flow Rate (L/min) 2 Oxygen Delivery Method Room Air Weight: 98 lb 1.691 oz Body Mass Index (BMI) 16.7 Intake & Output: Intake and Output for Last 24 Hours 04/21/22 04/22/22 04/23/22 23:59 23:59 23:59 Intake Total 1920.25 / 1920.25 1412.49 / 1630.49 318 / 318 Output Total 875 / 2125 2600 / 3475 1125 / 1125 Balance 1045.25 / -204.75 -1187.51 / -1844.51 -807 / -807 Medical Nutrition Assessment Dietitian: Malnutrition Criteria Met Start: 04/21/22 16:45 Freq: Status: Active Protocol: Document 04/21/22 16:45 RMA (Rec: 04/21/22 16:45 RMA [id number]) Nutrition Malnutrition Evidence of Malnutrition Exists Yes Malnutrition (moderate): Chronic Evidenced By Suboptimal Energy Intake ( Moderate),Weight Loss ( Moderate),Physical Changes ( Moderate) Intake Problem Increased Nutrient Needs (specify) Etiology for protein related to increased demands for wound healing Signs/Symptoms as evidenced by multiple pressure wound/injuries and s/ p L BKA Status Active Problem Clinical Problem Chronic Disease or Condition Related Malnutrition Etiology Moderate protein-calorie malnutrition in the context of chronic disease and debility related to inadequate oral intake, increased energy expenditure and increased nutrient needs Signs/Symptoms as evidenced by visible muscle /fat wasting in the clavicle, orbital and temporal regions, BMI 16.7, wt loss 7% x past 6- 12 months and suspected inadequate oral intake meeting less than 75% estimated nutrition needs. Status Active Problem Recommendation Dietitian Recommendations/Changes Will continue liberalized regular diet as ordered and monitor PO adequacy as established. Will add Vick BID for wound healing. Will add 240 ml cyril ensure plus high protein BID w/ breakfast and dinner; will add cyril ensure pudding w/ lunch meal. Adjust ONS as needed to optimize PO/wound healing and prevent wt loss. Lab / Micro Data Result Diagrams: 04/21/22 05:55 04/21/22 05:55 Assessment & Plan Assessment/Plan (1) Atherosclerosis of [place] arteries of extremities with gangrene, left leg: PLAN: POD # 3 left BKA -amputation incision satisfactory appearance -rigid removable device in place -dry dressing applied to avoid blood staining; when spotting stops will leave open to air under sleeve/RRD -plan to return to facility early-mid week; will plan to increase PO regimen to help wean dilaudid
[2022-04-23] MEDS: Atorvastatin Calcium 80 MG Tablet PO (22:00)
[2022-04-24] VITALS (8 sets, daily range): BP systolic 109–124; BP diastolic 35–69; PULSE 88–96; RESP 15–18; TEMP 36.7–37; O2SAT 94–100
[2022-04-24] MEDS: traMADol 50 MG Tablet PO ×4 (05:19→23:58)
[2022-04-24] MEDS: Levothyroxine 125 MCG Tablet PO (05:20)
[2022-04-24 05:44] LABS: Absolute Lymphocyte Count 1.38 X10^3/uL (0.83-4.51); Absolute Neutrophil Count 8.1 X10^3/uL (2.0-7.7); Basophil# 0.03 X10^3/uL; Basophil% 0.3 % (0-1); Eosinophils% 0.9 % (0-5); Hematocrit 29.4 % (37-47); Hemoglobin 8.9 g/dL (12.0-15.0); Lymphocyte # 1.38 X10^3/ul (0.83-4.51); Mean Corp Hgb Conc 30.3 g/dL (32-36); Mean Corpuscular Hgb 29.5 pg (27.0-32.0); Mean Corpuscular Volume 97.4 fL (81-99); Mean Platelet Vol. 10.1 fl (6.2-12.0); Monocyte# 0.91 X10^3/uL; Monocyte% 8.6 % (0-10); NRBC Flagged by Analyzer 0 % (0-5); Neutrophil % 76.4 % (47-70); Platelet Count 208 K/mm3 (150-450); RBC Distribution Width CV 16.3 % (11.6-14.6); RBC Distribution Width SD 58.4 fl (35.1-43.9); Red Blood Count 3.02 M/mm3 (4.2-5.4); White Blood Count 10.6 K/mm3 (4.4-11.0)
--- NOTE | 2022-04-24 06:48 | PCA ---
daily weight not completed, when we attempted to get daily weight multiple times in the bed that the patient is currently in, bed/scale would state error, contact clark , also got message that the weight was out of range.
[2022-04-24] MEDS: oxyCODONE 5 MG Tablet PO ×2 (08:41→19:18)
[2022-04-24] MEDS: Juven (unflavored) Packet 1 PACKET PO ×2 (08:41→17:09)
[2022-04-24] MEDS: Enoxaparin 40 MG/0.4 ML Syringe SC (08:41)
[2022-04-24] MEDS: DAKIN'S SOL HALF STRENGTH (=0.25%) 1 APPLIC TOPICAL (08:42)
[2022-04-24] MEDS: predniSONE 5 MG Tablet 12.5 MG PO (08:42)
[2022-04-24] MEDS: Clopidogrel Bisulfate 75 MG Tablet PO (08:45)
[2022-04-24] MEDS: Hydroxychloroquine 200 MG Tablet PO (08:45)
[2022-04-24] MEDS: Pantoprazole Sodium 40 MG Tablet PO (08:46)
[2022-04-24] MEDS: Mirtazapine 15 MG Tablet 7.5 MG PO (08:46)
[2022-04-24] MEDS: Senna/Docusate Sodium 1 Tablet PO ×2 (08:47→21:16)
[2022-04-24] MEDS: Metoprolol(XL)Succ 50 MG Tablet PO (08:47)
[2022-04-24] MEDS: Atorvastatin Calcium 80 MG Tablet PO (21:16)
[2022-04-25 02:52] VITALS: BP 120/54; PULSE 88; RESP 18; TEMP 36.8; O2SAT 95
[2022-04-25 02:56] VITALS: BP 120/54; PULSE 88; RESP 18; TEMP 36.8; O2SAT 95
[2022-04-25] MEDS: oxyCODONE 5 MG Tablet PO ×2 (03:21→13:54)
[2022-04-25] MEDS: traMADol 50 MG Tablet PO ×3 (05:40→17:45)
[2022-04-25] MEDS: Levothyroxine 125 MCG Tablet PO (05:40)
[2022-04-25] MEDS: predniSONE 5 MG Tablet 12.5 MG PO (08:06)
[2022-04-25] MEDS: Hydroxychloroquine 200 MG Tablet PO (08:06)
[2022-04-25] MEDS: Juven (unflavored) Packet 1 PACKET PO ×2 (08:07→17:52)
[2022-04-25 09:28] VITALS: BP 148/64; PULSE 94; RESP 16; TEMP 37.2; O2SAT 94
[2022-04-25] MEDS: DAKIN'S SOL HALF STRENGTH (=0.25%) 1 APPLIC TOPICAL (09:48)
[2022-04-25] MEDS: Enoxaparin 40 MG/0.4 ML Syringe SC (09:49)
[2022-04-25 09:50] VITALS: PULSE 94
[2022-04-25] MEDS: Pantoprazole Sodium 40 MG Tablet PO (09:50)
[2022-04-25] MEDS: Mirtazapine 15 MG Tablet 7.5 MG PO (09:50)
[2022-04-25] MEDS: Metoprolol(XL)Succ 50 MG Tablet PO (09:50)
[2022-04-25] MEDS: Clopidogrel Bisulfate 75 MG Tablet PO (09:50)
[2022-04-25] MEDS: Senna/Docusate Sodium 1 Tablet PO ×2 (09:50→19:59)
--- NOTE | 2022-04-25 12:03 | CASEMGMT ---
Social Work [facility] requesting additional therapy notes to continue precert. SW sent updates via [employer]. FAVIOLA West
[2022-04-25 15:30] VITALS: BP 112/51; PULSE 85; RESP 16; TEMP 36.4; O2SAT 99
[2022-04-25 19:43] VITALS: BP 122/57; PULSE 87; RESP 18; TEMP 36.8; O2SAT 95
[2022-04-25] MEDS: Atorvastatin Calcium 80 MG Tablet PO (19:59)
[2022-04-25] MEDS: 0.9% Saline Lock 10 ML Syringe IV (20:00)
[2022-04-26] MEDS: traMADol 50 MG Tablet PO ×5 (00:14→23:25)
[2022-04-26 05:25] VITALS: BP 132/52; PULSE 88; RESP 18; TEMP 36.6; O2SAT 96
[2022-04-26] MEDS: Levothyroxine 125 MCG Tablet PO (05:30)
[2022-04-26 08:45] VITALS: BP 135/59; PULSE 88; RESP 16; TEMP 36.9; O2SAT 94
[2022-04-26] MEDS: oxyCODONE 5 MG Tablet PO ×2 (08:58→17:43)
[2022-04-26] MEDS: predniSONE 5 MG Tablet 12.5 MG PO (09:00)
[2022-04-26] MEDS: Juven (unflavored) Packet 1 PACKET PO ×2 (09:00→17:43)
[2022-04-26] MEDS: Hydroxychloroquine 200 MG Tablet PO (09:00)
[2022-04-26] MEDS: Enoxaparin 40 MG/0.4 ML Syringe SC (09:01)
[2022-04-26] MEDS: Pantoprazole Sodium 40 MG Tablet PO (09:02)
[2022-04-26] MEDS: Clopidogrel Bisulfate 75 MG Tablet PO (09:02)
[2022-04-26] MEDS: Mirtazapine 15 MG Tablet 7.5 MG PO (09:02)
[2022-04-26 09:03] VITALS: PULSE 88
[2022-04-26] MEDS: Senna/Docusate Sodium 1 Tablet PO ×2 (09:03→21:48)
[2022-04-26] MEDS: Metoprolol(XL)Succ 50 MG Tablet PO (09:03)
--- NOTE | 2022-04-26 09:07 | CASEMGMT ---
Discharge Banking And Finance Instructor Austin from [facility] reached out. Austin is trying to do pre-cert and insurance is requesting new pt/ot notes. Patient has not been seen since 04/23/22. This video game script writer called MERRY Shaffer to see if Deena can have therapy make her a priority. Gema HARTMAN Electric Solderer
[2022-04-26] MEDS: DAKIN'S SOL HALF STRENGTH (=0.25%) 1 APPLIC TOPICAL (12:36)
--- NOTE | 2022-04-26 13:02 | PN.SURG_ITS ---
Subjective Subjective Patient reports minimal pain from amputation stump, still with considerable pain related to sacral wound. Denies constitutional symptoms, no further constipation, no other complaints. She is managing pain well with her oral home medication regimen. No issues with rigid removable device. She is eating and drinking well, supplementing with ensure and vick. She is doing well overall and looking forward to discharge back to SNF as it is closer to her family. Objective Data Objective Data Vital Signs: Vital Signs Temp Pulse Resp BP Pulse Ox O2 Del Method O2 Flow Rate 98.5 F 88 16 135/59 H 94 Room Air 2 04/26/22 08:45 04/26/22 09:03 04/26/22 08:45 04/26/22 08:45 04/26/22 08:45 04/26/22 08:45 04/25/22 02:56 Oxygen Flow Rate (L/min) 2 Oxygen Delivery Method Room Air Weight: 98 lb 1.691 oz Body Mass Index (BMI) 16.7 Intake & Output: Intake and Output for Last 24 Hours 04/24/22 04/25/22 04/26/22 23:59 23:59 23:59 Intake Total 550 / 550 100 / 100 50 / 50 Output Total 1470 / 1470 800 / 1100 650 / 650 Balance -920 / -920 -700 / -1000 -600 / -600 Medical Nutrition Assessment Dietitian: Malnutrition Criteria Met Start: 04/21/22 16:45 Freq: Status: Active Protocol: Document 04/25/22 13:31 RMA (Rec: 04/25/22 13:31 RMA [id number]) Nutrition Malnutrition Evidence of Malnutrition Exists Yes Malnutrition (moderate): Chronic Evidenced By Suboptimal Energy Intake ( Moderate),Weight Loss ( Moderate),Physical Changes ( Moderate) Intake Problem Increased Nutrient Needs (specify) Etiology for protein related to increased demands for wound healing Signs/Symptoms as evidenced by multiple pressure wound/injuries and s/ p L BKA Status Active Problem Clinical Problem Chronic Disease or Condition Related Malnutrition Etiology Moderate protein-calorie malnutrition in the context of chronic disease and debility related to inadequate oral intake, increased energy expenditure and increased nutrient needs Signs/Symptoms as evidenced by visible muscle /fat wasting in the clavicle, orbital and temporal regions, BMI 16.7, wt loss 7% x past 6- 12 months and suspected inadequate oral intake meeting less than 75% estimated nutrition needs. Status Active Problem Recommendation Dietitian Recommendations/Changes Will continue liberalized regular diet. Will continue Vick BID for wound healing. Will continue 240 ml cyril ensure plus high protein BID w / breakfast and dinner and cyril ensure pudding w/ lunch meal. Reweigh as able to better assess nutrition supplementation for wound healing and repletion. Lab / Micro Data Result Diagrams: 04/24/22 05:36 04/21/22 05:55 Physical Exam Narrative Patient alert and oriented x3. RRR Respirations non-labored, no accessory muscle use, able to speak complete sentences, no audible wheeze or stridor, no cough Incision with minimal oozing blood, viable flap edges, no hematoma, no erythema or purulence. Assessment & Plan Assessment/Plan (1) Atherosclerosis of [place] arteries of extremities with gangrene, left leg: PLAN: Plan Patient is s/p L BKA POD #6. Incision site and amputation stump with satisfactory appearance. Still with some minimal bleeding, placed new dry dressing to avoid further blood staining. Rigid removable device comfortably in place. Pain controlled with oral medication regimen. MERRY continues to work on return placement with [facility], anticipate discharge tomorrow. Charges/Coding Visit Charges Inpatient E&M: 99153 Subs Hosp L2
--- NOTE | 2022-04-26 14:39 | CASEMGMT ---
Addendum entered by Deena Sawant 04/26/22 15:55: NARCISO Mejias called SW and left voicemail. Magalie stated peer to peer call was confusing but Magalie believes pt is approved to return to SNF with intermittent level of therapy, not skilled. Magalie not sure what this means. Magalie did not receive and auth or reference number from peer to peer call. MERRY attempted to call [employer] to discuss and determine of [employer] has made contact following peer to peer call. No answer from Loan the DOA at [place]. MERRY called facility directly. Spoke to fiber worker who stated no SW or or business office staff available. Discharge pending until clarification can be given. FAVIOLA West Addendum entered by Deena Sawant 04/26/22 14:51: MERRY called Dr. Rivera's PA. Shared information regarding peer to peer call. PA to complete call now. Will update MERRY with determination. FAVIOLA West Original Note: Social Work [employer] called with peer to peer option for physician to complete. MERRY messaged Dr. Rivera via [employer] to inform of peer to peer call option. Will await response. FAVIOLA West
[2022-04-26 15:15] VITALS: BP 110/56; PULSE 88; RESP 16; TEMP 36.8; O2SAT 97
--- NOTE | 2022-04-26 16:33 | CASEMGMT ---
Social work SW received call from Loan from [facility]. Loan stated [employer] not paying fo rskilled level of care and pt would have to return private pay. SW attempted to speak to pt, however pt sleeping and unable ot wake. MERRY called NARCISO Mejias to give update and inform pt can return to SNF if ready to discharge. Magalie stated pt would stay one more night as dressing changes need done tomorrow morning. PLAN: Return to [facility], tomorrow FAVIOLA West
[2022-04-26 19:49] VITALS: BP 113/47; PULSE 89; RESP 16; TEMP 37.1; O2SAT 97
[2022-04-26] MEDS: Atorvastatin Calcium 80 MG Tablet PO (21:47)
[2022-04-27 02:00] VITALS: BP 106/43; PULSE 87; RESP 16; TEMP 36.8; O2SAT 96
[2022-04-27] MEDS: Levothyroxine 125 MCG Tablet PO (05:53)
[2022-04-27] MEDS: traMADol 50 MG Tablet PO ×2 (05:54→12:53)
[2022-04-27 08:00] VITALS: BP 118/62; PULSE 90; RESP 18; TEMP 36.6; O2SAT 98
[2022-04-27] MEDS: Juven (unflavored) Packet 1 PACKET PO (08:19)
[2022-04-27] MEDS: Hydroxychloroquine 200 MG Tablet PO (08:20)
[2022-04-27] MEDS: predniSONE 5 MG Tablet 12.5 MG PO (08:20)
[2022-04-27] MEDS: oxyCODONE 5 MG Tablet PO ×2 (08:22→13:47)
[2022-04-27 08:34] VITALS: PULSE 90
[2022-04-27 08:41] VITALS: BP 118/62; PULSE 90; RESP 18; TEMP 36.6; O2SAT 98
--- NOTE | 2022-04-27 09:01 | CASEMGMT ---
Social Work SW in to meet with pt and give update on insurance denial. SW explained process of peer to peer phone call and [employer] continuing to deny. Pt was upset but asked SW to call son, Bala, to share news. Pt stated , Quan is HCPOA but that would not understand this information and that son Bala is best to call to give update too. SW called Bala and provided information regarding denial. Bala expressed disappointment. Concerned with financial aspect of patient returning to [employer] private pay. SW encouraged ester Mckenna to meet with SW at SNF when pt returns to review and discuss options for Medicaid Waiver program and/or possible sliding fee scale, if family could qualify. Bala voiced understanding. SW informed 's intent to discharge pt back to SNF today. Bala also voiced understanding regarding this information. PLAN: [employer] FAVIOLA West
[2022-04-27] MEDS: DAKIN'S SOL HALF STRENGTH (=0.25%) 1 APPLIC TOPICAL (10:39)
[2022-04-27] MEDS: Enoxaparin 40 MG/0.4 ML Syringe SC (10:39)
[2022-04-27 10:40] VITALS: PULSE 90
[2022-04-27] MEDS: Clopidogrel Bisulfate 75 MG Tablet PO (10:40)
[2022-04-27] MEDS: Senna/Docusate Sodium 1 Tablet PO (10:40)
[2022-04-27] MEDS: Mirtazapine 15 MG Tablet 7.5 MG PO (10:40)
[2022-04-27] MEDS: Metoprolol(XL)Succ 50 MG Tablet PO (10:40)
[2022-04-27] MEDS: Pantoprazole Sodium 40 MG Tablet PO (10:40)
--- NOTE | 2022-04-27 10:48 | PCM.DC ---
Discharge Instructions Diet Discharge Diet: No restrictions Activity Discharge Activity: May Shower May shower in (days): 1 Weight Bearing Status: No weight bearing Dressing / Incision Call your doctor if your incision/area has: Sudden Increased Bleeding, Increased Pain/ Swelling, Increased Redness and Foul Smelling Discharge Call your doctor if you observe: Fever of 101 or Higher and Uncontrolled pain Additional Dressing/Incision Instructions:: Apply non-adherent dressing to incision site and wrap with dry gauze. Change dressing daily while incision site continues to ooze blood. Apply compression stocking and protective rigid removable device over the dry dressing. When the incision site stops oozing blood, may leave the incision open to air and cover only with compression stocking and protective device to protect the amputation stump. Keep the incision site clean and dry. Do not submerge in water. May shower with caution to keep incision site dry. Remove the protective device only for dressing changes and showers, otherwise the protective device must be worn at all times. Take care not to secure the device straps directly over the knee cap and provide additional padding/dressing as needed to protect delicate skin where device ends on the patient's thigh. Follow Up Care Please Follow Up With: Dudley Rivera MD When: 05/17/2022 at 2 PM Discharge Plan Admission Admit Date/Time: 04/20/22 09:48 Primary Reason for Your Visit: Left below knee amputation Attending Provider: Dudley Rivera Primary Care Provider: Tracey Thomas Instructions Additional Instructions / Restrictions: Keep incision site clean and dry, do not submerge in water. Keep the rigid removable device in place, remove only for dressing changes and to shower. No weight bearing. Follow-up in the vascular surgery office on 05/17/2022 at 2 pm to remove sutures. Discharge Orders/Prescriptions Prescriptions: Continued prednisone 2.5 mg tablet 2.5 mg PO DAILY levothyroxine [Euthyrox] 88 mcg tablet 125 mcg PO DAILY mirtazapine 7.5 mg tablet 7.5 mg PO DAILY oxycodone-acetaminophen 5-325 mg tablet 1 tab PO Q8H PRN (Reason: PAIN) tramadol 50 MG tablet 300 mg PO DAILY prednisone 1 MG tablet 10 mg PO DAILY hydroxychloroquine 200 MG tablet 200 mg PO DAILYCM cyclosporine [Restasis] 1 EACH dropperette 1 drp OP BID clopidogrel 75 MG tablet 75 mg PO DAILY atorvastatin 80 mg Tablet 80 mg PO QHS metoprolol succinate 50 mg Tablet Extended Release 24 Hr 50 mg PO DAILY polyethylene glycol 3350 [Miralax] 17 gram Powder In Packet 17 g PO PRN PRN (Reason: Constipation) sennosides-docusate sodium [Senokot-S] 8.6-50 mg Tablet 1 tab-cap PO BID pantoprazole 40 mg Tablet,Delayed Release (Dr/Ec) 40 mg PO DAILY Referrals / Follow Up: Tracey Thomas, PA [Primary Care Provider] - Disposition Disposition (needs filled in before D/C Order can be placed): Long Term Facility
--- NOTE | 2022-04-27 10:56 | WOUNDNOTE ---
wound photo: left leg
--- NOTE | 2022-04-27 10:57 | WOUNDNOTE ---
wound photo: left leg
--- NOTE | 2022-04-27 10:57 | WOUNDNOTE ---
wound photo: left leg
--- NOTE | 2022-04-27 10:58 | WOUNDNOTE ---
wound photo: left leg
--- NOTE | 2022-04-27 11:20 | PCM.TXEXTCAR ---
Diet Diet Order/Speech Therapy: 04/21/22 08:27 Diet: Regular - General Type of Dietary Supplement:: Ensure Plus High Protein Is pt able to select menu?: No Diet Comments: 240 ml cyril ensure plus with B & D; cyril ensure pudding w/ Lunch Wound(s) LEFT LEG: Wound Type: surgical incision s/p amputation Dressing Change: Adaptic (Adaptic to incision site then wrap with dry gauze) RIGHT FOOT: Wound Type: Pressure Injury coccyx: Wound Type: Pressure Injury Dressing Change: Dakins moistened gauze right heel: Wound Type: Pressure Injury Dressing Change: betadine with dry dressing right medial foot: Wound Type: Pressure Injury Dressing Change: betadine with dry dressing right knee: Wound Type: Skin Tear Dressing Change: applied Mepilex Therapies Weight Bearing: Non weight bearing Physical Therapy: Eval and Treat Occupational Therapy: Eval and Treat Problem/Diagnosis (1) 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 The surgery went as planned without complications, incision site was closed with sutures and compression dressing was applied along with posterior splint in the OR. The patient tolerated the procedure well. The dressing was left in place until POD #3 at which point it was removed revealing satisfactory appearance of the incision site and amputation stump. On POD #3 patient was fitted and provided with a rigid removable device with extension and compression stocking for protection of the amputation stump. She remained hemodynamically stable and without signs or symptoms of infection throughout her admission. Patient had significant baseline pain prior to admission, primarily due to a pre-existing sacral ulcer. Her pain with respect to the amputation site progressively improved throughout her admission. At time of discharge, her pain is well controlled with oral medications, no signs or symptoms of infection, no complaints. Satisfactory appearance of amputation stump with viable skin edges, no swelling, hematoma, erythema/purulence. The incision site continues to bleed minimally from the lateral aspect of skin edge so covered with non-adherent dressing and wrapped with dry gauze. Will continue with this dry dressing until bleeding stops at which time no additional dressing needed other than compression sleeve and protective device. Patient will follow-up in office in 3 weeks for first half of sutures to be removed. Discussed plan with patient and son, both acknowledged understanding and all questions were answered satisfactorily. Allergies/Procedures Done in Hospital Allergies levofloxacin [From Levaquin] Allergy (Intermediate, Verified 04/14/22 13:54) Swelling eyes burn and swell Procedures: - (Left below knee amputation) Type of Care/Length of Stay Estimated LOS: More Than 30 Days Type of Care Needed: Skilled Rehab Potential: Fair Prognosis: Fair Additional Orders/Day of Discharge Day of Discharge: 04/27/22 Dietary and Speech Recommendations Dietitian Recommendations/Changes: Continue liberalized regular diet. Continue Vick BID for wound healing. Continue 240 ml cyril ensure plus high protein BID w/ breakfast and dinner and cyril ensure pudding w/ lunch meal. Follow Up Care Please Follow Up With: Dudley Rivera MD When: 05/17/2022 at 2 pm Discharge Plan Admission Admit Date/Time: 04/20/22 09:48 Primary Reason for Your Visit: Left below knee amputation Attending Provider: Dudley Rivera Primary Care Provider: Tracey Thomas Instructions Additional Instructions / Restrictions: Keep incision site clean and dry, do not submerge in water. Keep the rigid removable device in place, remove only for dressing changes and to shower. No weight bearing. Follow-up in the vascular surgery office on 05/17/2022 at 2 pm to remove sutures. Discharge Orders/Prescriptions Prescriptions: Continued prednisone 2.5 mg tablet 2.5 mg PO DAILY levothyroxine [Euthyrox] 88 mcg tablet 125 mcg PO DAILY mirtazapine 7.5 mg tablet 7.5 mg PO DAILY oxycodone-acetaminophen 5-325 mg tablet 1 tab PO Q8H PRN (Reason: PAIN) tramadol 50 MG tablet 300 mg PO DAILY prednisone 1 MG tablet 10 mg PO DAILY hydroxychloroquine 200 MG tablet 200 mg PO DAILYCM cyclosporine [Restasis] 1 EACH dropperette 1 drp OP BID clopidogrel 75 MG tablet 75 mg PO DAILY atorvastatin 80 mg Tablet 80 mg PO QHS metoprolol succinate 50 mg Tablet Extended Release 24 Hr 50 mg PO DAILY polyethylene glycol 3350 [Miralax] 17 gram Powder In Packet 17 g PO PRN PRN (Reason: Constipation) sennosides-docusate sodium [Senokot-S] 8.6-50 mg Tablet 1 tab-cap PO BID pantoprazole 40 mg Tablet,Delayed Release (Dr/Ec) 40 mg PO DAILY Referrals / Follow Up: Tracey Thomas PA [Primary Care Provider] - Disposition Disposition (needs filled in before D/C Order can be placed): Intermediate Facility Charges/Coding Visit Charges Inpatient E&M: 11885 Disch Hosp
--- NOTE | 2022-04-27 13:20 | CASEMGMT ---
Social Work? MERRY notified pt and pt family of discharge/return to [facility] today. Set up cot transportation [facility] for 2:30 pm. MERRY faxed all discharge orders to [facility] via [facility] and notified of discharge time. MERRY made copies of discharge orders and placed on pt chart. Sent original orders in envelope with pt upon discharge.?? Disposition: [facility], intermediate level of care? [facility]?
[2022-04-27 13:54] VITALS: BP 112/53; PULSE 90; RESP 18; TEMP 36.6; O2SAT 98
--- NOTE | 2022-04-27 14:04 | NURSING ---
report called to [facility]
--- NOTE | 2022-04-27 14:58 | CASEMGMT ---
Social Work SW otified by bedside nurse that pt has controlled medication and nurse informed PA that scripts would need to be signed and sent to SNF. 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 PA was unable to print and sign scripts. Nurse Miguel called [facility] and obtained name of pharmacy. PA was informed to send scripts to [facility] electronically. PA confirmed scripts were sent. [facility]
== END 2022-04-27 15:00 | disposition skilled nursing facility (03) | DRG 239 ==
LOC: ACINP 09:52 → MS3 15:50
PROVIDERS: Admitting Provider Surgery Trauma Surgery; PCP Physician Assistant; Referring Provider Surgery Trauma Surgery; Visit Provider Surgery Trauma Surgery
PROC: 0Y6J0Z2 Detachment at Left Lower Leg, Mid, Open Approach (ICD-10-PCS; principal; 2022-04-20 11:15)
DX: I70.262 Atherosclerosis of native arteries of extremities with gangrene, left leg (principal); L89.154 Pressure ulcer of sacral region, stage 4; E44.0 Moderate protein-calorie malnutrition; Z68.1 Body mass index [BMI] 19.9 or less, adult; Z89.512 Acquired absence of left leg below knee; E03.9 Hypothyroidism, unspecified; L89.619 Pressure ulcer of right heel, unspecified stage
CPT/HCPCS: 36415; 80048; 84443; 85025; 86850; 86900; 86901; 87426; 88307; 88311; 97110; 97162; 97166; 97530; 97535; 97802; 97803; J7120; A4216; J2405

== ENCOUNTER → 2022-05-16 | Outpatient (CLI) | payer MEDICARE, SELFPAY ==
--- NOTE | 2022-05-16 12:48 | ART_ITS ---
Reason For Study: Ulcer Procedure A bilateral lower extremity continuous wave Doppler with analog waveform analysis,segmental pressures,and ankle brachial indexes without exercise. Left Segmental Pressures Left brachial= 130mmHg. Did not take left leg waveforms and pressures due to recent BKA. Right Segmental Pressures Right brachial= 127mmHg. Right posterior tibial artery = >254mmHg. Right dorsalis pedis artery = >254mmHg. The right dorsalis pedis waveforms are biphasic. The right posterior tibial artery waveforms are biphasic. Indices The right ankle brachial index by the dorsalis pedis is NC. The right ankle brachial index by the posterior tibial artery is NC. VL/Lower Ext Art Exam w/o Exercis Interpretation Summary Unable to obtain right CRUZ due to non-compressible vessels. Doppler/PVR wavefor ms of the right leg moderately diminished distal SFA/popliteal. Prior left below knee amputation Ordering Physician: Dudley Rivera Referring Physician: Tracey Thomas Performed By: Yolande Melara RVT
--- NOTE | 2022-05-16 12:48 | CDU_ITS ---
Reason For Study: Carotid bruit Rt. Velocities/BP Lt. Velocities/BP Prox CCA 75/10.9 cm/sec. Prox CCA 74/13.5 cm/sec. Mid CCA 59.2/13.4 cm/sec. Mid CCA 80.6/11.3 cm/sec. Dist CCA 61.9/13.5 cm/sec. Dist CCA 57.5/11.3 cm/sec. Prox ICA 59.7/14.6 cm/sec. Prox ICA 78.4/14.6 cm/sec. Mid ICA 97.1/24.5 cm/sec. Mid ICA 117/23.5 cm/sec. Dist ICA 114.6/22.5 cm/sec. Dist ICA 113.5/21.6 cm/sec. Rt. ICA/CCA = 1.85. Lt. ICA/CCA = 1.58. Prox ECA 76.2 cm/sec. Prox ECA 83.9 cm/sec. Rt. Vert. 61.9/11.3 cm/sec. Lt. Vert. 97.2/22.6 cm/sec. Right Extracranial There is intimal thickening but no significant atherosclerotic plaque noted in the right common carotid artery. There is heterogeneous, irregular atherosclerotic plaque noted in the right internal carotid artery. There is heterogeneous, irregular atherosclerotic plaque noted in the right external carotid artery. Antegrade flow is noted in the right vertebral artery. Left Extracranial There is heterogeneous, irregular atherosclerotic plaque noted in the left common carotid artery. There is heterogeneous, irregular atherosclerotic plaque noted in the left internal carotid artery. There is heterogeneous, irregular atherosclerotic plaque noted in the left external carotid artery. Antegrade flow is noted in the left vertebral artery. VL/Carotid Duplex Ultrasound Interpretation Summary Mild (<50%) stenosis right extracranial internal carotid. Mild (<50%) stenosis left extracranial internal carotid. Patent and antegrade vertebrals bilaterally. Ordering Physician: Dudley Rivera Referring Physician: Tracey Thomas Performed By: Yolande Melara RVT
--- NOTE | 2022-05-16 12:48 | ADUL_ITS ---
Reason For Study: PAD, wounds, prior intervention Right Velocities Ext. Iliac Artery, dist = 71.8 cm./sec. Common Femoral Artery, mid = 77.8 cm./sec. Supf Femoral Artery, prox = 74.2 cm./sec. Supf Femoral Artery, mid = 43.7 cm./sec. Supf Femoral Artery, dist. = 48.6 cm./sec. Profunda Femoral Artery = 65 cm./sec. Popliteal Artery, mid = 51.1 cm./sec. Post. Tibial Artery, prox = 26.1 cm./sec. Post. Tibial Artery, mid = 31.7 cm./sec. Post. Tibial Artery, dist = 33.6 cm./sec. Ant. Tibial Artery, prox = 29.8 cm./sec. Ant. Tibial Artery, mid = 20.4 cm./sec. Ant. Tibial Artery, dist = 22.3 cm./sec. No flow noted in the Peroneal artery. Procedure Technically difficult study due to scanning patient in chair and calcification of vessels. Exam performed in department. VL/US Art Duplex Unilat Lower Ext Interpretation Summary Right lower extremity vessels with no focal velocity shift, though there is gra dual transition from triphasic to monophasic waveforms through SFA-popliteal segment. Study limited by positioning and calcifications Ordering Physician: Magalie Ortiz Referring Physician: Tracey Thomas Performed By: Yolande Melara RVT
== END | disposition home or self-care (01) ==
PROVIDERS: PCP Physician Assistant; Visit Provider Surgery Trauma Surgery
DX: I65.23 Occlusion and stenosis of bilateral carotid arteries (principal); I73.9 Peripheral vascular disease, unspecified; R09.89 Other specified symptoms and signs involving the circulatory and respiratory systems
CPT/HCPCS: 93880; 93923; 93926